=== PATIENT | female | born 2005 | race Caucasian/White ===

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

== ENCOUNTER 2023-01-29 22:06 | Emergency (ER) | payer OTHER ==
[2023-01-29 22:39] LABS: Absolute Lymphocytes (CBC) 2.3 K/uL (0.7-4.9); Hematocrit 39.7 % (36.0-45.0); Lymphocytes % 26.1 % (15.3-44.8); MCV 81.9 fL (80-100); MPV 7.2 fL (7.6-11.3); RBC Red Blood Cell Count 4.85 M/uL (3.86-4.86)
--- OUTSIDE RECORDS SUMMARY | 2023-01-29 22:44 | XMS REPORT | Continuity of Care Document ---
:2005 Author Organization [facility] t Address [address] [place] [address] Care Team Providers Name Role Phone LATOYA MOJICA Primary Care Physician Unavailable Guerrero Whitaker MD Attending Clinician Doctor Unassigned, [place] Attending Clinician Unavailable Arlene Valentino Attending Clinician Unavailable Heaven Morrow Attending Clinician [phone] Yenni Cervantes Attending Clinician Unavailable Hannah Sanchez Attending Clinician Unavailable Yina Green Attending Clinician Unavailable Adali Mcpherson Attending Clinician [phone] Responsible Provider, Not Yet Assigned Attending Clinician U Yenni Lyon Attending Clinician Unavailable Director Graphics, [facility] Attending Clinician UnavailShayy Mccollum Attending Clinician Unavailable Colette Chowdary Attending Clinician [phone] Tram Landaverde Attending Clinician Unavailable Polina Dobson Attending Clinician Unavailable JANNA BONILLA Attending Clinician Unavailable Janna Bonilla PA-C Attending Clinician GUILLERMINA GILL Attending Clinician Unavailable 1, [facility] Attending Clinician Unavailable GUERRERO WHITAKER Attending Clinician Unavailable Heaven Morrow Unavailable [phone] ThousandsticksElke ninoine Unavailable [phone] Germán ManningElsieie Unavailable [phone] Yenni Cervantes Unavailable Unavailable Payers Payer Name Policy Type Policy Number Effective Date Expiration Date S ource Problems Condition Condition Condition Status Onset Resolution Last Treating Co mments Source Name Details Category Date Date Treatment Clinician Date Greater Condition Active 2019-10-15 Jakub Morrow Than or 10-14 09:09:50 [facility] Equal to 00:00: ty 95th 00 Health Percentile For Age Anemia in Condition Active 2019-10-11 Tiera Mcphersonacy , 10-11 11:20:23 Adali Kumar ommuni third 00:00: ty trimester 00 Health Supervisio Condition Active 2019-10-07 Germán Manning [facility] of other 10-07 17:42:03 Colette Comm uni high risk 00:00: ty pregnancie 00 Health s, third trimester Supervisio Condition Active 2019-10-07 Germán Manning, [facility] n of high 10-07 17:42:03 Colette Commu ni risk 00:00: ty 00 Health due to social problems, third trimester Round Round Disease Active Univers ligament ligament 1-31 ity of pain pain 00:00: [place] 00 [facility] 32 weeks 32 weeks Disease Active 2018-08 Unive rs gestation gestation 2-31 ity of of of 00:00: [place] 00 [facility] 28 weeks 28 weeks Disease Active 2018-08 Unive rs gestation gestation 2-31 ity of of of 00:00: [place] 00 [facility] Supervisio Supervisio Disease Active 2018-08 U nivers n of high n of high 2- ity of risk risk 00:00: [place] 00 Medi kacey in third in third Branch trimester trimester Uterine Uterine Disease Active 2018-08 Univers size-date size-date [place] third 00 Me dical trimester trimester Bran ch Need for Need for Disease Active 2018-08 Unive rs Tdap Tdap 2-31 [place] [facility] History of Past Illness Condition Condition Condition Status Onset Resolution Last Treating Co mments Source Name Details Category Date Date Treatment Clinician Date 36 Weeks Condition Inactiv 2019-10-21 2019-10-15 Helen, [facility] Gestation e 10-14 00:00:00 09:09:50 Yenni Com clint of 00:00: ty 00 Health 35 Weeks Condition Inactiv 2019-10-14 2019-10-07 Germán Manning, [facility] Gestation e 10-07 00:00:00 17:42:03 Colette Com clint of 00:00: ty 00 Health Allergies, Adverse Reactions, Alerts Allergy Allergy Status Severity Reaction(s) Onset Inactive Treating Comm ents Source Name Type Date Date Clinician Penicill Propensi Active ins - ty to 7-19 CLASS adverse 00:00: reaction 00 to drug Penicill Propensi Active ins ty to 3-21 adverse 00:00: reaction 00 to drug ASPIRIN DRUG Active ITCHING Univers INGREDI 7 ity of 00:00: [place] 00 [facility] Branch Aspirin Propensi Active Swelling Unive rs ty to 7 ity of adverse 00:00: [place] reaction 00 Medical s Branch Social History Social Habit Start Date Stop Date Quantity Comments Source ASSERTION 2019-02-12 University 00:00:00 [facility] Sex Assigned At [facility] [place] [facility] History [facility] o f Alcohol Std [place] [facility] Drinks Branch History [facility] o f Alcohol Binge [place] [facility] Have you traveled 2019-10-14 2019-10-14 No [facility] to any zika virus 13:44:33 13:44:33 Health infected areas? social history 2019-10-07 2019-10-07 not currently with [facility] E&M 14:07:37 14:07:37 familyliving with Latasha bass's familystates her own parents not involved with this . cat exposure 2019-10-07 2019-10-07 no [facility] nity during 14:07:37 14:07:37 Health Alcohol intake 2019-09-17 2019-09-17 [facility] 00:00:00 00:00:00 [facility] History SDOH 2019-03-17 2019-03-17 1 University o f Alcohol Frequency 00:00:00 00:00:00 [facility] History of 2019-03-07 Chews Tobacco University of tobacco use 00:00:00 [facility] Smoking Status Start Date Stop Date Source Never smoker [facility] Medications Ordered Filled Start Stop Current Ordering Indication Dosage Frequency Signature Comments Components Source Medication Medication Date Date Medication? Clinician (SIG) Name Name Dose 2022-0 No Unknown 05-05 00:00: 00 TAKE 1 2022-0 No TABLET BY 9-18 MOUTH EVERY 00:00: DAY 00 Dose 2022-0 No Unknown 05-05 00:00: 00 TAKE 1 2022-0 No TABLET BY 9-18 MOUTH EVERY 00:00: DAY 00 TAKE 1 2022-0 No 10 TABLET BY 8-18 MOUTH EVERY 00:00: DAY 00 TAKE 1 2022-0 No 10 TABLET BY 8-18 MOUTH EVERY 00:00: DAY 00 TAKE 1 2022-0 No 10 TABLET BY 8-18 MOUTH EVERY 00:00: DAY 00 Dose 2022-0 No 375 Unknown 03-29 00:00: 00 Dose 2022-0 No 375 Unknown 03-29 00:00: 00 Dose 2022-0 No 375 Unknown 03-29 00:00: 00 Dose 2022-0 No 375 Unknown 03-29 00:00: 00 TAKE 1 2022-0 No 25 CAPSULE BY 8-10 MOUTH 3 00:00: TIMES A DAY 00 NEEDED TAKE 1 2022-0 No 25 CAPSULE BY 8-10 MOUTH 3 00:00: TIMES A DAY 00 NEEDED TAKE 1 2022-0 No 25 CAPSULE BY 8-10 MOUTH 3 00:00: TIMES A DAY 00 NEEDED TAKE 1 2022-0 No 25 CAPSULE BY 8-10 MOUTH 3 00:00: TIMES A DAY 00 NEEDED Dose 2022-0 No 500 Unknown 03-25 00:00: [...] 00 TAKE 1 2022-0 No 10 TABLET 03-23 DAILY. 00:00: 00 Dose 2022-0 No 375 Unknown 03-23 00:00: 00 TAKE 1 2022-0 No TABLET BY 8- MOUTH EVERY 00:00: 6 HOURS 00 NEEDED FOR PAIN TAKE 1 2022-0 No 10 TABLET 03-23 DAILY. 00:00: 00 Dose 2022-0 No 375 Unknown 03-23 00:00: 00 TAKE 1 2022-0 No TABLET BY - MOUTH EVERY 00:00: 6 HOURS 00 NEEDED FOR PAIN TAKE 1 2022-0 No 10 TABLET 03-23 DAILY. 00:00: 00 Dose 2022-0 No 375 Unknown 03-23 00:00: 00 TAKE 1 2022-0 No TABLET BY 03-23 MOUTH EVERY 00:00: 6 HOURS 00 NEEDED FOR PAIN TAKE 1 2022-0 No 10 TABLET 03-23 DAILY. 00:00: 00 Dose 2022-0 No 375 Unknown 03-23 00:00: 00 TAKE 1 2022-0 No TABLET BY 03-23 MOUTH EVERY 00:00: 6 HOURS 00 NEEDED FOR PAIN TAKE 1 2022-0 No 10 TABLET 03-23 DAILY. 00:00: 00 Dose 2022-0 No 375 Unknown 03-23 00:00: 00 TAKE 1 2022-0 No TABLET BY 03-23 MOUTH EVERY 00:00: 6 HOURS 00 NEEDED FOR PAIN Dose 2022-0 No 375 Unknown 03-22 00:00: 00 TAKE 1 2022-0 No 25 CAPSULE BY 03-22 MOUTH 3 00:00: TIMES A DAY 00 NEEDED Dose 2022-0 No 375 Unknown 03-22 00:00: 00 TAKE 1 2022-0 No 25 CAPSULE BY 03-22 MOUTH 3 00:00: TIMES A DAY 00 NEEDED Dose 2022-0 No 375 Unknown 03-22 00:00: 00 TAKE 1 2022-0 No 25 CAPSULE BY - MOUTH 3 00:00: TIMES A DAY 00 NEEDED Dose 2022-0 No 375 Unknown 03-22 00:00: 00 TAKE 1 2022-0 No 25 CAPSULE BY 03-22 MOUTH 3 00:00: TIMES A DAY 00 NEEDED Dose 2022-0 No 375 Unknown 03-22 00:00: 00 TAKE 1 2022-0 No 25 CAPSULE BY 8-05 MOUTH 3 00:00: TIMES A DAY 00 NEEDED Dose 2022-0 No Unknown 8- 00:00: 00 TAKE 1 2022-0 No TABLET BY 8-04 MOUTH EVERY 00:00: 6 HOURS 00 NEEDED FOR PAIN &lt 2022-0 No 500 8- 00:00: 00 &lt 2022-0 No 68 8- 00:00: 00 Dose 2022-0 No Unknown 8- 00:00: 00 Dose 2022-0 No Unknown 8- 00:00: 00 TAKE 1 2022-0 No TABLET BY 8-04 MOUTH EVERY 00:00: 6 HOURS 00 NEEDED FOR PAIN &lt 2022-0 No 500 8- 00:00: 00 &lt 2022-0 No 68 8-04 00:00: 00 Dose 2022-0 No Unknown 8- 00:00: 00 Dose 2022-0 No Unknown 8- 00:00: 00 TAKE 1 2022-0 No TABLET BY 8-04 MOUTH EVERY 00:00: 6 HOURS 00 NEEDED FOR PAIN &lt 2022-0 No 500 8-04 00:00: 00 &lt 2022-0 No 68 8-04 00:00: 00 Dose 2022-0 No Unknown 8- 00:00: 00 Dose 2022-0 No Unknown 8- 00:00: 00 TAKE 1 2022-0 No TABLET BY 8-04 MOUTH EVERY 00:00: 6 HOURS 00 NEEDED FOR PAIN &lt 2022-0 No 500 8-04 00:00: 00 &lt 2022-0 No 68 8- 00:00: 00 Dose 2022-0 No Unknown 8- 00:00: 00 Dose 2022-0 No Unknown 8- 00:00: 00 TAKE 1 2022-0 No TABLET BY 8-04 MOUTH EVERY 00:00: 6 HOURS 00 NEEDED FOR PAIN &lt 2022-0 No 500 8-04 00:00: 00 &lt 2022-0 No 68 8-04 00:00: 00 Dose 2022-0 No Unknown 8- 00:00: 00 TAKE 1 2022-0 No 300 CAPSULE BY 8-03 MOUTH EVERY 00:00: 6 HOURS FOR 00 10 DAYS &lt 2022-0 No 500 8-03 00:00: 00 TAKE 1 2022-0 No TABLET BY 8 MOUTH EVERY 00:00: 6 HOURS 00 NEEDED FOR PAIN &lt 2022-0 No 100 03-20 00:00: 00 Dose 2022-0 No 375 Unknown 03-20 00:00: 00 Dose 2022-0 No 300 Unknown 03-20 00:00: 00 Dose 2022-0 No 375 Unknown 03-20 00:00: 00 TAKE 1 2022-0 No 300 CAPSULE BY 8- MOUTH EVERY [...] 00 TAKE 1 2-0 No TABLET BY 803 MOUTH EVERY 00:00: 6 HOURS 00 NEEDED FOR PAIN &lt 2022-0 No 100 03-20 00:00: 00 Dose 2022-0 No 375 Unknown 03-20 00:00: 00 Dose 2022-0 No 300 Unknown 03-20 00:00: 00 Dose 2022-0 No 375 Unknown 03-20 00:00: 00 TAKE 1 2-0 No 300 CAPSULE BY 8-03 MOUTH EVERY 00:00: 6 HOURS FOR 10 DAYS &lt 2022-0 No 500 03-20 00:00: 00 TAKE 1 2022-0 No TABLET BY 8- MOUTH EVERY 00:00: 6 HOURS 00 NEEDED FOR PAIN &lt 2022-0 No 100 03-20 00:00: 00 Dose 2022-0 No 375 Unknown 03-20 00:00: 00 Dose 2022-0 No 300 Unknown 03-20 00:00: 00 Dose 2022-0 No 375 Unknown 03-20 00:00: 00 TAKE 1 2022-0 No 300 CAPSULE BY 8- MOUTH EVERY 00:00: 6 HOURS FOR 10 DAYS &lt 2022-0 No 500 03-20 00:00: 00 TAKE 1 2022-0 No TABLET BY 03-20 MOUTH EVERY 00:00: 6 HOURS 00 NEEDED FOR PAIN &lt 2022-0 No 100 03-20 00:00: 00 Dose 2022-0 No 375 Unknown 03-20 00:00: 00 Dose 2022-0 No 300 Unknown 03-20 00:00: 00 Dose 2022-0 No 375 Unknown 03-20 00:00: 00 TAKE 1 2022-0 No 300 CAPSULE BY 7-25 MOUTH EVERY 00:00: 6 HOURS FOR 10 DAYS &lt 2022-0 No 500 7- 00:00: 00 TAKE 1 2022-0 No 300 CAPSULE BY 7-25 MOUTH EVERY 00:00: 6 HOURS FOR 10 DAYS &lt 2022-0 No 500 7- 00:00: 00 TAKE 1 2022-0 No 300 CAPSULE BY 7-25 MOUTH EVERY 00:00: 6 HOURS FOR 10 DAYS &lt 2022-0 No 500 7-25 00:00: 00 TAKE 1 2022-0 No 300 CAPSULE BY 7-25 MOUTH EVERY 00:00: 6 HOURS FOR 10 DAYS &lt 2022-0 No 500 7-25 00:00: 00 TAKE 1 2022-0 No 300 CAPSULE BY 7-25 MOUTH EVERY 00:00: 6 HOURS FOR 10 DAYS &lt 2022-0 No 500 7- 00:00: 00 TAKE 1 2022-0 No 300 CAPSULE BY 7-25 MOUTH EVERY 00:00: 6 HOURS FOR 10 DAYS &lt 2022-0 No 500 7-25 00:00: 00 TAKE 1 2022-0 No TABLET BY 7-21 MOUTH EVERY 00:00: 6 HOURS 00 NEEDED FOR PAIN TAKE 1 2-0 No TABLET BY 7-21 MOUTH EVERY 00:00: 6 HOURS 00 NEEDED FOR PAIN TAKE 1 2-0 No TABLET BY 7-21 MOUTH EVERY 00:00: 6 HOURS 00 NEEDED FOR PAIN TAKE 1 2-0 No TABLET BY 7-21 MOUTH EVERY 00:00: 6 HOURS 00 NEEDED FOR PAIN TAKE 1 2-0 No TABLET BY 7-21 MOUTH EVERY 00:00: 6 HOURS 00 NEEDED FOR PAIN TAKE 1 2-0 No TABLET BY 7-21 MOUTH EVERY 00:00: 6 HOURS 00 NEEDED FOR PAIN citalopram 2-0 No 1mg 10 mg 7-20 tablet 00:00: [...] 7-15 MOUTH EVERY 00:00: 6 HOURS FOR 10 DAYS &lt 2022-0 No 100 7-12 00:00: 00 &lt 2022-0 No 100 7-12 00:00: 00 &lt 2022-0 No 100 7-12 00:00: 00 &lt 2022-0 No 100 7-12 00:00: 00 &lt 2022-0 No 100 7-12 00:00: 00 &lt 2022-0 No 100 7-12 00:00: 00 &lt 2022-0 No 100 7-12 00:00: 00 TAKE 1 2022-0 No 25 [...] 375 Unknown 7-11 00:00: 00 TAKE 1 2021-0 No 25 CAPSULE BY 7-11 MOUTH 3 00:00: TIMES A DAY 00 NEEDED &lt 2022-0 No 500 7-11 00:00: 00 Dose 2022-0 No 375 Unknown 7 00:00: 00 TAKE 1 2021-0 No 25 CAPSULE BY 7-11 MOUTH 3 00:00: TIMES A DAY 00 NEEDED &lt 2022-0 No 500 7-11 00:00: 00 Dose 2022-0 No 375 Unknown 7 00:00: 00 TAKE 1 2021-0 No 25 CAPSULE BY 7-11 MOUTH 3 00:00: TIMES A DAY 00 NEEDED &lt 2022-0 No 500 7-11 00:00: 00 Dose 2021-0 No 375 Unknown 7 00:00: 00 TAKE 1 2021-0 No 25 CAPSULE BY 7-11 MOUTH 3 00:00: TIMES A DAY 00 NEEDED &lt 2022-0 No 500 7- 00:00: 00 Dose 2-0 No 375 Unknown 7 00:00: 00 TAKE 1 2021-0 No 25 CAPSULE BY 7-11 MOUTH 3 00:00: TIMES A DAY 00 NEEDED &lt 2022-0 No 500 7-11 00:00: 00 Dose 2-0 No 375 Unknown 02-25 00:00: 00 TAKE 1 2021-0 No 25 [...] PAIN &lt 2022-0 No 6-07 00:00: 00 &lt [...] 6-07 MOUTH EVERY 00:00: 6 HOURS FOR 10 Dose 2022-0 No Unknown 6-07 00:00: 00 Dose 2022-0 No Unknown 6-07 00:00: 00 &lt 2022-0 No 6-07 00:00: 00 TAKE 1 2022-0 No CAPSULE BY 6-07 MOUTH 3 00:00: TIMES A DAY 00 NEEDED &lt 2022-0 No 6-07 00:00: 00 &lt 2022-0 No 6-07 00:00: 00 TAKE 1 2022-0 No CAPSULE BY 6-07 MOUTH EVERY 00:00: 6 HOURS FOR 10 Dose 2022-0 No Unknown 6-07 00:00: 00 Dose 2022-0 No Unknown 6- 00:00: 00 &lt 2022-0 No 6-07 00:00: 00 TAKE 1 2022-0 No CAPSULE BY 6-07 MOUTH 3 00:00: TIMES A DAY 00 NEEDED &lt 2022-0 No 6-07 00:00: 00 &lt 2022-0 No 6-07 00:00: 00 TAKE 1 2022-0 No CAPSULE BY 6-07 MOUTH EVERY 00:00: 6 HOURS FOR 10 Dose 2022-0 No Unknown 6-07 00:00: 00 Dose 2022-0 No Unknown 6-07 00:00: 00 &lt 2022-0 No 6-07 00:00: 00 TAKE 1 2022-0 No CAPSULE BY 6-07 MOUTH 3 00:00: TIMES A DAY 00 NEEDED &lt 2022-0 No 6-07 00:00: 00 &lt 2022-0 No 6-07 00:00: 00 TAKE 1 2022-0 No CAPSULE BY 6-07 MOUTH EVERY 00:00: 6 HOURS FOR 00 10 Dose 2022-0 No Unknown 6-07 00:00: 00 [...] A DAY 00 NEEDED &lt 2022-0 No 6-04 00:00: 00 &lt [...] 1-22 100 mg 00:00: capsule 00 medroxyprog 2021-0 No 1mg/mL esterone 7-27 150 mg/mL 00:00: intramuscul 00 ar syringe medroxyprog 2021-0 No 1mg/mL esterone 7-27 150 mg/mL 00:00: intramuscul 00 ar syringe medroxyprog 2021-0 No 1mg/mL esterone 7-27 150 mg/mL 00:00: intramuscul 00 ar syringe medroxyprog 2021-0 No 1mg/mL esterone 7-27 150 mg/mL 00:00: intramuscul 00 ar syringe medroxyprog 2021-0 No 1mg/mL esterone 7-27 150 mg/mL 00:00: intramuscul 00 ar syringe medroxyprog 2021-0 No 1mg/mL esterone 7-27 150 mg/mL 00:00: intramuscul 00 ar syringe medroxyprog 2021-0 No 1mg/mL esterone 7-27 150 mg/mL 00:00: intramuscul 00 ar syringe medroxyprog 1-0 No 1mg/mL esterone 7-27 150 mg/mL 00:00: intramuscul 00 ar syringe Wellbutrin 2019-1 No 1mg XL 150 mg 1-28 24 hr 00:00: tablet, 00 extended release Wellbutrin 2019- No 1mg XL 150 mg 1-28 24 hr 00:00: tablet, 00 extended release Wellbutrin 2019- No 1mg XL 300 mg 1-28 24 hr 00:00: tablet, 00 extended release olanzapine 2019- No 1mg 5 mg tablet - 00:00: 00 clonidine 2019- No 1mg HCl 0.3 mg 1-28 tablet 00:00: 00 clonidine 2019-1 No 1mg HCl 0.3 mg 1-28 tablet 00:00: 00 gabapentin 2019-1 No 1mg 300 mg -28 capsule 00:00: 00 Wellbutrin 2019- No 1mg XL 300 mg -28 24 hr 00:00: tablet, 00 [...] olanzapine 2019- No 1mg 5 mg tablet -28 00:00: 00 clonidine 2019-1 No 1mg HCl 0.3 mg 1-28 tablet 00:00: 00 clonidine 2019- No 1mg HCl 0.3 mg 1-28 tablet 00:00: 00 gabapentin 2019- No 1mg 300 mg 1-28 capsule 00:00: [...] hr 00:00: tablet, 00 extended release olanzapine 2019-08 No 1mg 5 mg tablet - 00:00: 00 clonidine 2019- No 1mg HCl 0.3 mg 1-28 tablet 00:00: 00 clonidine 2019- No 1mg HCl 0.3 mg 1-28 tablet 00:00: 00 gabapentin 2019- No 1mg 300 mg 1-28 capsule 00:00: 00 fluoxetine 2019- No mg 20 mg 0-07 tablet 00:00: 00 fluoxetine 2019- No mg 20 mg 0-07 tablet 00:00: 00 fluoxetine 2019- No mg 20 mg 0-07 tablet 00:00: 00 fluoxetine 2019- No mg 20 mg 0-07 tablet 00:00: 00 fluoxetine 2019- No mg 20 mg 0-07 tablet 00:00: 00 fluoxetine 2019- No mg 20 mg 0-07 tablet 00:00: 00 fluoxetine 2019- No mg 20 mg 0-07 tablet 00:00: 00 fluoxetine 2019- No mg 20 mg 0-07 tablet 00:00: 00 FERRALET 90 Yes Adali Take 1 [facility] (FE CBN-FE 2-24 [facility] Tablet Communi GLUC-FA-B12 00:00: Once a Day ty -C-DSS) 00 Health 90-1 MG TABS VITAFOL Yes Colette Dunlap 1{Capsu 1xD take 1 [facility] ULTRA 2-20 Nigel le} capsule by Evon (PRENAT-FE 00:00: mouth ty POLY-METHFO 00 daily Health L-FA-DHA) 29-0.6-0.4- 200 MG CAPS BLOOD Yes Colette Dunlap take twice [facility] PRESSURE 2-20 Nigel daily Evon (BLOOD 00:00: ty PRESSURE 00 Health MONITORING) KIT PNV 67-iron Yes [id number] Take 1 Univers ps-folate 8-03 TAB-CAP/M2 ity of no.1-dha 00:00: by mouth [place] (VITAFOL 00 daily. Medical ULTRA) 29 Branch mg iron- 1 mg-200 mg Cap PNV 67-iron Yes [id number] Take 1 Univers ps-folate 8-03 TAB-CAP/M2 ity of no.1-dha 00:00: by mouth [place] (VITAFOL 00 daily. Medical ULTRA) 29 Branch mg iron- 1 mg-200 mg Cap PNV 67-iron 2019-0 Yes [id number] Take 1 Univers ps-folate 8-03 TAB-CAP/M2 ity of no.1-dha 00:00: by mouth [place] (VITAFOL 00 daily. Medical ULTRA) 29 Branch mg iron- 1 mg-200 mg Cap PNV 67-iron 2019-0 Yes [id number] Take 1 Univers ps-folate 8-03 TAB-CAP/M2 ity of no.1-dha 00:00: by mouth [place] (VITAFOL 00 daily. Medical ULTRA) 29 Branch mg iron- 1 mg-200 mg Cap PNV 67-iron 2019-0 Yes [id number] Take 1 Univers ps-folate 8-03 TAB-CAP/M2 ity of no.1-dha 00:00: by mouth [place] (VITAFOL 00 daily. Medical ULTRA) 29 Branch mg iron- 1 mg-200 mg Cap PNV 67-iron 2019-0 Yes [id number] Take 1 Univers ps-folate 8-03 TAB-CAP/M2 ity of no.1-dha 00:00: by mouth [place] (VITAFOL 00 daily. Medical ULTRA) 29 Branch mg iron- 1 mg-200 mg Cap PNV 67-iron 2019-0 Yes [id number] Take 1 Univers ps-folate 8-03 TAB-CAP/M2 ity of no.1-dha 00:00: by mouth [place] (VITAFOL 00 daily. Medical ULTRA) 29 Branch mg iron- 1 mg-200 mg Cap PNV 67-iron 2019-0 Yes [id number] Take 1 Univers ps-folate 8-03 TAB-CAP/M2 ity of no.1-dha 00:00: by mouth [place] (VITAFOL 00 daily. Medical ULTRA) 29 Branch mg iron- 1 mg-200 mg Cap PNV 67-iron 2019-0 Yes [id number] Take 1 Univers ps-folate 8-03 TAB-CAP/M2 ity of no.1-dha 00:00: by mouth [place] (VITAFOL 00 daily. Medical ULTRA) 29 Branch mg iron- 1 mg-200 mg Cap PNV 67-iron 2019-0 Yes [id number] Take 1 Univers ps-folate 8-03 TAB-CAP/M2 ity of no.1-dha 00:00: by mouth [place] (VITAFOL 00 daily. Medical ULTRA) 29 Branch mg iron- 1 mg-200 mg Cap PNV 67-iron 2019-0 Yes [id number] Take 1 Univers ps-folate 8-03 TAB-CAP/M2 ity of no.1-dha 00:00: by mouth [place] (VITAFOL 00 daily. Medical ULTRA) 29 Branch mg iron- 1 mg-200 mg Cap PNV 67-iron 2019-0 Yes [id number] Take 1 Univers ps-folate 8-03 TAB-CAP/M2 ity of no.1-dha 00:00: by mouth [place] (VITAFOL 00 daily. Medical ULTRA) 29 Branch mg iron- 1 mg-200 mg Cap PNV 67-iron 2019-0 Yes [id number] Take 1 Univers ps-folate 8-03 TAB-CAP/M2 ity of no.1-dha 00:00: by mouth [place] (VITAFOL 00 daily. Medical ULTRA) 29 Branch mg iron- 1 mg-200 mg Cap PNV 67-iron 2018-0 Yes [id number] Take 1 Univers ps-folate 8-03 TAB-CAP/M2 ity of no.1-dha 00:00: by mouth [place] (VITAFOL 00 daily. Medical ULTRA) 29 Branch mg iron- 1 mg-200 mg Cap PNV 67-iron 2018-0 Yes [id number] Take 1 Univers ps-folate 8-03 TAB-CAP/M2 ity [...] cetirizine 2019-0 No 1mg 5 mg tablet 507 00:00: 00 cetirizine 2019-0 No 1mg 5 mg tablet 507 00:00: 00 prednisone 2019-0 No 1mg 10 [...] cetirizine 2019-0 No 1mg 5 mg tablet 507 00:00: 00 prednisone 2019-0 No 1mg 10 mg 5-07 tablet 00:00: 00 azithromyci 2019-0 No mg n 250 mg 5-07 tablet 00:00: 00 promethazin 2019-0 No 5mg/5 e-DM 6.25 5-07 mL mg-15 mg/5 00:00: mL oral 00 syrup promethazin 2019-0 No 5mg/5 e-DM 6.25 5-07 mL mg-15 mg/5 00:00: mL oral 00 syrup cetirizine 2019-0 No 1mg 5 mg tablet 5-07 00:00: 00 prednisone 2018-0 No 1mg 10 mg 5-07 tablet 00:00: 00 azithromyci 2018-0 No mg n 250 mg 5-07 tablet 00:00: 00 promethazin 2018-0 No 5mg/5 e-DM 6.25 5-07 [...] 0.18 00 mg/0.215mg/ 0.25mg-35 mcg(28)tabl et norgestimat 2018-0 No 1mg-35 e-ethinyl 1-24 mcg estradiol 00:00: (28) 0.18 00 mg/0.215mg/ 0.25mg-35 mcg(28)tabl et No known No Univers medications ity of [facility] No known No Univers medications it of [facility] Immunizations Ordered Immunization Filled Immunization Date Status Commen ts Source Name Name TDAP (ADACEL) 2019-08-17 Completed University of VACCINE 00:00:00 [facility] TDAP (ADACEL) 2019-08-17 Completed University of VACCINE 00:00:00 [facility] TDAP (ADACEL) 2019-08-17 Completed University of VACCINE 00:00:00 [facility] TDAP (ADACEL) 2019-08-17 Completed University of VACCINE 00:00:00 [facility] Influenza Virus 2019-06-14 Completed Universit y of Vaccine Quad .5 mL 00:00:00 [facility] 6+ MO [place] Influenza Virus 2019-06-14 Completed Universit y of Vaccine Quad .5 mL 00:00:00 [facility] 6+ MO [place] Influenza Virus 2019-06-14 Completed Universit y of Vaccine Quad .5 mL 00:00:00 [facility] 6+ [place] Branch Influenza Virus 2019-06-14 Completed Universit y of Vaccine Quad .5 mL 00:00:00 [facility] 6+ [place] [facility] HPV9 2018-12-11 [...] 2008-01-04 Completed 00:00:00 varicella 2008-01-04 Completed 00:00:00 MMR 2008-01-04 Completed 00:00:00 IPV 2008-01-04 Completed 00:00:00 varicella 2008-01-04 Completed 00:00:00 DTaP 2008-01-04 Completed 00:00:00 MMR 2008-01-04 Completed 00:00:00 IPV 2008-01-04 Completed 00:00:00 varicella 2008-01-04 Completed 00:00:00 varicella 2007-03-12 Completed 00:00:00 varicella 2007-03-12 Completed 00:00:00 varicella 2007-03-12 Completed 00:00: varicella 2007-03-12 Completed 00:00: varicella 2007-03-12 Completed 00:00:00 varicella 2007-03-12 Completed [...] 00:00:00 Pneumococcal 2003 Completed conjugate P 00:00:00 Hep B, adolescent or 2003 Completed [...] 23:06:00 93 mm[Hg] Univer sity of pressure [facility] Diastolic blood 2019-08-31 23:06:00 64 mm[Hg] Unive rsity of pressure [facility] Heart rate 2019-08-31 23:06:00 90 /min [facility] Body temperature 2019-08-31 23:06:00 36.39 Vicky [facility] [place] [facility] Respiratory rate 2019-08-31 23:06:00 18 /min [facility] [place] [facility] Body height 2019-08-31 23:06:00 160 cm [facility] [place] [facility] Body weight 2019-08-31 23:06:00 101.606 kg [facility] [place] [facility] BMI 2019-08-31 23:06:00 39.68 kg/m2 [facility] [place] [facility] Systolic blood 2019-04-14 19:00:00 117 mm[Hg] Univer sity of pressure [place] [facility] Diastolic blood 2019-04-14 19:00:00 70 mm[Hg] Unive rsity of pressure [place] [facility] Heart rate 2019-04-14 19:00:00 79 /min [facility] [place] [facility] Body temperature 2019-04-14 19:00:00 36.89 Vicky [facility] [place] [facility] Respiratory rate 2019-04-14 19:00:00 18 /min [facility] [place] [facility] Body height 2019-04-14 19:00:00 160 cm [facility] [place] [facility] Body weight 2019-04-14 19:00:00 87.544 kg [facility] [place] [facility] BMI 2019-04-14 19:00:00 34.19 kg/m2 [facility] [place] [facility] Systolic blood 2019-03-17 14:24:00 112 mm[Hg] Univer sity of pressure [place] [facility] Diastolic blood 2019-03-17 14:24:00 70 mm[Hg] Unive rsity of pressure [facility] Heart rate 2019-03-17 14:24:00 77 /min [facility] [place] [facility] Body temperature 2019-03-17 14:24:00 36.83 Vicky [facility] Respiratory rate 2019-03-17 14:24:00 18 /min [facility] Body height 2019-03-17 14:24:00 160 cm [facility] Body weight 2019-03-17 14:24:00 90.266 kg [facility] BMI 2019-03-17 14:24:00 35.25 kg/m2 [facility] BP Systolic 2022-05-07 17:13:00 117 mm[Hg] BP Diastolic 2022-05-07 17:13:00 85 mm[Hg] Weight Measured 2022-05-07 17:13:00 241.00 pounds Height Measured 2022-05-07 17:13:00 62.01 inches Body Temperature 2022-05-07 17:13:00 98.00 degrees Heart Rate 2022-05-07 17:13:00 75.00 /min Respiratory Rate 2022-05-07 17:13:00 18.00 /min BP Systolic 2022-04-04 13:18:00 112 mm[Hg] BP [...] /min Respiratory Rate 2021-03-13 13:32:00 16.00 /min blood pressure, 2019-10-14 13:44:33 84 mm[Hg] [facility] diastolic Health blood pressure, 2019-10-14 13:44:33 125 mm[Hg] [facility] systolic Health pulse rate E&M 2019-10-14 13:44:33 87 /min [facility] oxygen saturation, 2019-10-14 13:44:33 97 % [facility] rate E&M 2019-10-14 13:44:33 20 /min [facility] temperature site 2019-10-14 13:44:33 oral Lega [facility] Health temperature E&M 2019-10-14 13:44:33 98.3 [degF] Legac [facility] Health weight E&M 2019-10-14 13:44:33 238.8 [lb_av] [facility] height E&M 2019-10-14 13:44:33 63 [in_i] [facility], 2019-10-07 14:07:37 98 % [facility] Health blood pressure, 2019-10-07 14:07:37 83 mm[Hg] Legac y [facility] diastolic Health blood pressure, 2019-10-07 14:07:37 130 mm[Hg] Legac y [facility] systolic Health pulse rate E&M 2019-10-07 14:07:37 91 /min [facility] temperature E&M 2019-10-07 14:07:37 98.6 [degF] Legac y [facility] Health temperature site 2019-10-07 14:07:37 oral [facility] height E&M 2019-10-07 14:07:37 63 [in_i] [facility] weight E&M 2019-10-07 14:07:37 235 [lb_av] [facility] Procedures Procedure Date / Time Performing Clinician Source Performed CONSENT/REFUSAL FOR 2019-10-25 05:01:00 Doctor Unassigned, No [facility] DIAGNOSIS AND TREATMENT Name Medical Branch Nutrition Counseling 2019-10-14 14:28:44 [facility] Visit, 2019-10-07 15:54:24 Yenni Gross Comm unity Non-Billable [id number] Health Vaccines Ordered - 2019-10-07 15:46:26 Colette Chowdary [facility] Consent/Declination Forms POCT URINALYSIS W/O 2019-08-31 00:00:00 Janna Bonilla [facility] SPECIFIC GRAVITY Medical Branch <14 WEEKS US 2019-04-16 17:44:02 Guerrero Whitaker [facility] CBC WITH DIFFERENTIAL 2019-04-14 21:36:00 Guerrero Whitaker [facility] ASSIGNMENT OF BENEFITS 2019-04-14 20:00:31 Doctor Unassigned, No [facility] <14 WEEKS US 2019-03-20 23:54:07 Guerrero Whitaker [facility] TOTAL BETA HCG ASSAY 2019-03-17 15:19:00 Guerrero Whitaker [facility] GC & CHLAMYDIA 2019-03-17 14:53:00 Bry [facility] AMPLIFIED ASSAY [facility] GALV ONLY - VAGINAL 2019-03-17 14:53:00 Guerrero Whitaker [facility] PATHOGENS BY DNA PROBE Medical B geoff ADC / LCC - DRUG SCREEN 2019-03-17 14:53:00 Guerrero Whitaker [facility] POCT TEST 2019-03-17 00:00:00 Gu[facility]aker [facility] POCT URINALYSIS W/O 2019-03-17 00:00:00 Gurerero Whitaker [facility] Plan of Care Planned Activity Planned Date Details Comments Source Goal Plan of Care Note [code = 06036-1] Goal Plan of Care Note [code = 73037-1] Goal Plan of Care Note [code = 74801-2] Goal Plan of Care Note [code = 73111-5] Goal Plan of Care Note [code = 95388-1] Goal Plan of Care Note [code = 17711-3] Goal Plan of Care Note [code = 43555-2] Goal Plan of Care Note [code = 98525-0] Goal Plan of Care Note [code = 07970-1] Goal Plan of Care Note [code = 68758-1] Goal Plan of Care Note [code = 19126-5] Goal Plan of Care Note [code = 00882-5] Goal Plan of Care Note [code = 65618-7] Goal Plan of Care Note [code = 08318-0] Goal Plan of Care Note [code = 91206-1] Goal Plan of Care Note [code = 62428-9] Goal Plan of Care Note [code = 29162-9] Goal Plan of Care Note [code = 33578-0] Goal Plan of Care Note [code = 43315-8] Goal Plan of Care Note [code = 80865-1] Goal Plan of Care Note [code = 08485-5] Goal Plan of Care Note [code = 32681-2] Goal Plan of Care Note [code = 29853-8] Goal Plan of Care Note [code = 02412-4] Goal Plan of Care Note [code = 19575-9] Goal Plan of Care Note [code = 89260-5] Goal Plan of Care Note [code = 39505-1] Goal Plan of Care Note [code = 17371-3] Goal Plan of Care Note [code = 47700-3] Goal Plan of Care Note [code = 34091-6] Goal Plan of Care Note [code = 19015-2] Goal Plan of Care Note [code = 13590-5] Goal Plan of Care Note [code = 57560-3] Goal Plan of Care Note [code = 35754-5] Goal Plan of Care Note [code = 12855-1] Goal Plan of Care Note [code = 73206-7] Goal Plan of Care Note [code = 86446-8] Goal Plan of Care Note [code = 87232-1] Goal Plan of Care Note [code = 97780-0] Goal Plan of Care Note [code = 48597-2] Goal Plan of Care Note [code = 59389-5] Goal Plan of Care Note [code = 43293-8] Goal Plan of Care Note [code = 85246-2] Goal Plan of Care Note [code = 61384-4] Goal Plan of Care Note [code = 16650-0] Goal Plan of Care Note [code = 44761-9] Goal Plan of Care Note [code = 89669-8] Goal Plan of Care Note [code = 84785-0] Goal Plan of Care Note [code = 52542-7] Goal Plan of Care Note [code = 07321-2] Goal Plan of Care Note [code = 54629-0] Goal Plan of Care Note [code = 85830-8] Goal Plan of Care Note [code = 74919-3] Goal Plan of Care Note [code = 03734-9] Goal Plan of Care Note [code = 90216-9] Goal Plan of Care Note [code = 91808-0] Goal Plan of Care Note [code = 49665-6] Goal Plan of Care Note [code = 40685-5] Goal Plan of Care Note [code = 21376-4] Goal Plan of Care Note [code = 80576-9] Goal Plan of Care Note [code = 57452-8] Goal Plan of Care Note [code = 05451-7] Goal Plan of Care Note [code = 11910-7] Goal Plan of Care Note [code = 01866-0] Goal Plan of Care Note [code = 71544-5] Goal Plan of Care Note [code = 64328-1] Goal Plan of Care Note [code = 63570-2] Goal Plan of Care Note [code = 10460-2] Goal Plan of Care Note [code = 92601-3] Goal Plan of Care Note [code = 48656-1] Goal Plan of Care Note [code = 58790-6] Goal Plan of Care Note [code = 29710-0] Goal Plan of Care Note [code = 87691-5] Goal Plan of Care Note [code = 89562-0] Goal Plan of Care Note [code = 23409-1] Goal Plan of Care Note [code = 16469-6] Goal Plan of Care Note [code = 75955-5] Goal Plan of Care Note [code = 59424-7] Goal Plan of Care Note [code = 07554-4] Goal Plan of Care Note [code = 00846-7] Goal Plan of Care Note [code = 21793-1] Goal Plan of Care Note [code = 90572-1] Goal Plan of Care Note [code = 01570-5] Goal Plan of Care Note [code = 84857-4] Goal Plan of Care Note [code = 39063-3] Goal Plan of Care Note [code = 42201-3] Goal Plan of Care Note [code = 00673-7] Goal Plan of Care Note [code = 10351-1] Goal Plan of Care Note [code = 86915-3] Goal Plan of Care Note [code = 67680-3] Goal Plan of Care Note [code = 59429-6] Goal Plan of Care Note [code = 05620-9] Goal Plan of Care Note [code = 18517-4] Goal Plan of Care Note [code = 56461-1] Goal Plan of Care Note [code = 68237-0] Goal Plan of Care Note [code = 02307-6] Goal Plan of Care Note [code = 02602-2] Goal Plan of Care Note [code = 13896-1] Goal Plan of Care Note [code = 47375-4] Goal Plan of Care Note [code = 99274-9] Goal Plan of Care Note [code = 85909-7] Goal Plan of Care Note [code = 17565-6] Goal Plan of Care Note [code = 90777-0] Goal Plan of Care Note [code = 64869-1] Goal Plan of Care Note [code = 19497-3] Goal Plan of Care Note [code = 14354-4] Goal Plan of Care Note [code = 13143-6] Goal Plan of Care Note [code = 14486-5] Goal Plan of Care Note [code = 17307-3] Goal Plan of Care Note [code = 37080-2] Goal Plan of Care Note [code = 09969-8] Goal Plan of Care Note [code = 98571-6] Goal Plan of Care Note [code = 42856-1] Goal Plan of Care Note [code = 49836-8] Goal Plan of Care Note [code = 59098-7] Goal Plan of Care Note [code = 44637-9] Goal Plan of Care Note [code = 14106-9] Goal Plan of Care Note [code = 28597-3] Goal Plan of Care Note [code = 99233-2] Goal Plan of Care Note [code = 74149-9] Goal Plan of Care Note [code = 52945-8] Goal Plan of Care Note [code = 95474-4] Goal Plan of Care Note [code = 43579-6] Goal Plan of Care Note [code = 41389-2] Goal Plan of Care Note [code = 45471-0] Goal Plan of Care Note [code = 60671-9] Goal Plan of Care Note [code = 56103-0] Goal Plan of Care Note [code = 80861-3] Goal Plan of Care Note [code = 28172-2] Goal Plan of Care Note [code = 79038-3] Goal Plan of Care Note [code = 47323-5] Goal Plan of Care Note [code = 10814-1] Goal Plan of Care Note [code = 23637-8] Goal Plan of Care Note [code = 75423-7] Goal Plan of Care Note [code = 86200-8] Goal Plan of Care Note [code = 93995-7] Goal Plan of Care Note [code = 79868-9] Goal Plan of Care Note [code = 49928-0] Goal Plan of Care Note [code = 78577-4] Goal Plan of Care Note [code = 70849-2] Goal Plan of Care Note [code = 86696-4] Goal Plan of Care Note [code = 51598-2] Goal Plan of Care Note [code = 19213-9] Goal Plan of Care Note [code = 94052-0] Goal Plan of Care Note [code = 90067-3] Goal Plan of Care Note [code = 62633-4] Goal Plan of Care Note [code = 45814-3] Goal Plan of Care Note [code = 06299-1] Goal Plan of Care Note [code = 90037-1] Goal Plan of Care Note [code = 25884-3] Goal Plan of Care Note [code = 63238-7] Goal Plan of Care Note [code = 82908-3] Goal Plan of Care Note [code = 75273-7] Goal Plan of Care Note [code = 74848-8] Goal Plan of Care Note [code = 46011-5] Goal Plan of Care Note [code = 62741-3] Goal Plan of Care Note [code = 89384-3] Goal Plan of Care Note [code = 58311-7] Goal Plan of Care Note [code = 16777-2] Goal Plan of Care Note [code = 84562-6] Goal Plan of Care Note [code = 53864-6] Goal Plan of Care Note [code = 77150-3] Goal Plan of Care Note [code = 81095-6] Goal Plan of Care Note [code = 40962-6] Goal Plan of Care Note [code = 46412-5] Goal Plan of Care Note [code = 32308-5] Goal Plan of Care Note [code = 64309-3] Goal Plan of Care Note [code = 94396-3] Goal Plan of Care Note [code = 85149-4] Goal Plan of Care Note [code = 87021-4] Goal Plan of Care Note [code = 80346-4] Goal Plan of Care Note [code = 01366-2] Goal Plan of Care Note [code = 69887-6] Goal Plan of Care Note [code = 64478-6] Goal Plan of Care Note [code = 20554-7] Goal Plan of Care Note [code = 10724-3] Goal Plan of Care Note [code = 95688-8] Goal Plan of Care Note [code = 62767-7] Goal Plan of Care Note [code = 72418-2] Goal Plan of Care Note [code = 27172-3] Goal Plan of Care Note [code = 17694-6] Goal Plan of Care Note [code = 72481-5] Goal Plan of Care Note [code = 49056-2] Goal Plan of Care Note [code = 58742-5] Goal Plan of Care Note [code = 87195-8] Goal Plan of Care Note [code = 10385-9] Goal Plan of Care Note [code = 10124-8] Goal Plan of Care Note [code = 94128-0] Goal Plan of Care Note [code = 70805-6] Goal Plan of Care Note [code = 35368-8] Goal Plan of Care Note [code = 93309-3] Goal Plan of Care Note [code = 07656-8] Goal Plan of Care Note [code = 44034-9] Goal Plan of Care Note [code = 56912-1] Goal Plan of Care Note [code = 58271-8] Goal Plan of Care Note [code = 27183-7] Goal Plan of Care Note [code = 47406-2] Goal Plan of Care Note [code = 32900-9] Goal Plan of Care Note [code = 85719-3] Goal Plan of Care Note [code = 00795-6] Goal Plan of Care Note [code = 18744-8] Goal Plan of Care Note [code = 42684-2] Goal Plan of Care Note [code = 52223-6] Goal Plan of Care Note [code = 79431-5] Goal Plan of Care Note [code = 43520-6] Goal Plan of Care Note [code = 89700-9] Goal Plan of Care Note [code = 10179-7] Goal Plan of Care Note [code = 01146-0] Goal Plan of Care Note [code = 81110-1] Encounters Start End Encounter Admission Attending Care Care Encounter Source Date/Time Date/Time Type Type Clinicians Facility Department ID 2022-12-31 2022-12-31 Outpatient SFA SFA [id number] 023 Cj 14:01:12 14:01:12 0516 F Orestes 2022-10-17 2022-10-17 Outpatient SFA SFA [id number] 023 Cj 13:22:30 13:22:30 0302 F Orestes 2022-07-04 2022-07-04 Outpatient SFA SFA [id number] 022 Cj 16:27:15 16:27:15 1117 F Orestes 2022-06-25 2022-06-25 Outpatient SFA SFA 68746-1 022 Cj 09:30:43 09:30:43 1108 F Orestes 2022-04-04 2022-04-04 Outpatient 4gq61u4n- [id number] 0f q69z2r-8 00:00:00 00:00:00 Visit 0aw7-2798 cf4-4333-a -c14i-209 14d-616d2c a9ifpe124 vlf872 2022-03-29 2022-03-29 Outpatient 70s8s3lj- [id number] e5v0dr-1 00:00:00 00:00:00 Visit 1m74-533j n52-682f-f -aee4-f53 ee4-f53cf0 sg2b7h5is d1d1ff 2022-03-23 2022-03-23 Outpatient t60giw61- [id number] a1 9gbd79-p 00:00:00 00:00:00 Visit s9e3-5l30 8e3-2s88-b -ya93-43k i88-50sf6n j2n8v712u 9v073w 2022-03-20 2022-03-20 Outpatient 15b8598n- [id number] b4151r-8 00:00:00 00:00:00 Visit 499b-4139 99b-4139-b -m227-p45 979-d90d6a b9u534q90 082f34 2022-03-11 2022-03-11 Outpatient m9taz218- [id number] d7 klx561-3 00:00:00 00:00:00 Visit 7oc3-3uc6 be8-4fb1-9 -9183-471 183-471bfe alz20h82i 09f04a 2022-03-05 2022-03-05 Outpatient t8d70794- [id number] e3 o30652-8 00:00:00 00:00:00 Visit 7883-4b9d 883-4b9d-a -xn9d-40q l1o-43t633 342796st3 953bc3 2022-02-28 2022-02-28 Outpatient 2ui18z11- [id number] 6a j84f91-q 00:00:00 00:00:00 Visit cl29-62t4 m03-74o7-d -o2bn-0nu 3bc-6ra740 [id number] 9383-07-11 2022-02-25 Outpatient tw2904q2- [id number] ed 1674w4-4 00:00:00 00:00:00 Visit 03cc-4c8d 3cc-4c8d-8 -8777-5b3 777-6c5480 20186g0qv 20b2eb 2019-11-17 2019-11-17 Telephone Guerrero Whitaker [facility] 1.2.840.114 [id number] Univers 00:00:00 00:00:00 Cam Eugenio 350.1.13.10 i [place] [phone] Id dical nal 134 [facility] 2019-10-25 2019-10-25 Orders Doctor ZEV 1.2.840.114 [id number] Univers 00:00:00 00:00:00 Only Unassigned, NICK 350.1.13.10 [facility] 4.2.7.2.686 Dylon as [phone] [address] 2019-10-21 2019-10-21 Office HAYDER Valentino Encount er/ Legacy 00:00:00 00:00:00 Visit Arlene Olson [id number] José [place] 259428 [employer] ADMINISTRATOR Health 2019-10-21 2019-10-21 Office HAYDER Valentinoacy Encount er/ Legacy 00:00:00 00:00:00 Visit Arlene Olson [id number] José [place] 985722 W[employer]OWS SERVER ADMINISTRATOR Health 2019-10-19 2019-10-19 Office Arlene Valentinoacy Encounter/ Legacy 00:00:00 00:00:00 Visit Heaven Morrow [place] [phone] [id number] [facility] Denise 287954 WINDOWS SERVER ADMINISTRATOR Health 2019-10-19 2019-10-19 Office HAYDER Valentino Encount er/ Legacy 00:00:00 00:00:00 Visit Arlene Olson [id number] José [place] 689051 WINDOWS SERVER ADMINISTRATOR Health 2019-10-19 2019-10-19 Office HAYDER Valentino Encount er/ Legacy 00:00:00 00:00:00 Visit Arlene Olson [id number] José [place] 357402 WINDOWS SERVER ADMINISTRATOR Health 2019-10-18 2019-10-18 Office HAYDER Valentinoacy Encount er/ Legacy 00:00:00 00:00:00 Visit Arlene [facility] [id number] José hood [place] 368961 ty WINDOWS SERVER ADMINISTRATOR Health 2019-10-15 2019-10-15 Office RAMIRO Valentino Jakub Encount er/ Legacy 00:00:00 00:00:00 Visit Arlene [facility] [id number] José hood [place] 374702 WINDOWS SERVER ADMINISTRATOR Health 2019-10-14 2019-10-14 Office RAMIRO Morrow Legacy Encounter / Legacy 00:00:00 00:00:00 Visit [facility] [id number] [facility] 290798 Services Health 2019-10-14 2019-10-14 Office RAMIRO Morrow Legacy Encounter / Legacy 00:00:00 00:00:00 Visit [facility] [id number] [facility] 880624 [facility] Health 2019-10-14 2019-10-14 Office RAMIRO Morrow Legtessie Encounter / Legacy 00:00:00 00:00:00 Visit Heaven [facility] [id number] sana [place] 690459 WINDOWS SERVER ADMINISTRATOR Health 2019-10-14 2019-10-14 Office RAMIRO Morrow Legtessie Encounter / Legacy 00:00:00 00:00:00 Visit Heaven [facility] [id number] José hood [place] 992156 WINDOWS SERVER ADMINISTRATOR Health 2019-10-14 2019-10-14 Office Heaven Morrow [facility] Legtessie E ncounter/ Legacy 00:00:00 00:00:00 Visit Yenni Cervantes [facility] [id number] 5373 Hannah Avila [place] 50 5780 WINDOWS SERVER ADMINISTRATOR Health 2019-10-14 2019-10-14 Office Peter [facility] Kerry Otto Encoun ter/ Legacy 00:00:00 00:00:00 Visit Yina WINDOWS SERVER ADMINISTRATOR [id number] Com clint [id number] ty Health 2019-10-11 2019-10-11 Office Ky [facility] Kerry Otto Encoun ter/ Legacy 00:00:00 00:00:00 Visit Adali [id number] C ommuni 106263 Health 2019-10-07 2019-10-07 Office Responsible Provider, Not Yet Anamika dietz [facility] Legacy Encounter/ Legacy 00:00:00 00:00:00 Visit Adali Mcpherson [facility] 1897 [id number] [facility] 322172 Services [facility] 2019-10-07 2019-10-07 Office Responsible Provider, Not Yet Asselvis gnryan LC Legacy Encounter/ Legacy 00:00:00 00:00:00 Visit Adali Mcpherson [facility] 1897 062118 [facility] 355504 Services [facility] 2019-10-07 2019-10-07 Office Responsible Provider, Not Yet Assi gned LC Legacy Encounter/ Legacy 00:00:00 00:00:00 Visit Adali Mcpherson [facility] 1897 509283 [facility] 581551 [facility] 2019-10-07 2019-10-07 Office Yenni Gross Legacy Encoun ter/ Legacy 00:00:00 00:00:00 Visit [facility] [id number] [facility] 693682 [facility] Services 2019-10-07 2019-10-07 Office Director Graphics, Health [facility]ocate Student RAMIRO Castro Legacy Encounter/ Legacy 00:00:00 00:00:00 Visit [facility] [id number] [facility] 367161 [facility] 2019-10-07 2019-10-07 Office Germán Colette Manning [facility] Legacy En counter/ Legacy 00:00:00 00:00:00 Visit Tram Landaverde [facility] 1897 [id number] [facility] Polina [place] 118655 t y Yenni Gross WINDOWS SERVER ADMINISTRATOR [facility] 2019-10-06 2019-10-06 Office Peter [facility] Schaller Encoun ter/ Legacy 00:00:00 00:00:00 Visit Yina WINDOWS SERVER ADMINISTRATOR [id number] [facility] clint [id number] Health 2019-09-30 2019-09-30 Outpatient R CHAD [facility] [id number] 33245 Univers 15:00:00 15:00:00 JANNA patel [facility] 2019-09-16 2019-09-16 Letter Chad AZASTRID [id number] Univers 00:00:00 00:00:00 (Out) Janna Becker 350.1.13.10 i [place] [phone] [address] 2019-08-31 2019-08-31 [facility] 1.2.105.021 [id number] Univers 16:27:53 16:42:53 Janna Beaulieuton 350.1.13.10 ity of [place] [phone] [address] 2019-08-27 2019-08-27 Outpatient Estefani GILL [facility] [id number] Univers 15:00:00 18:05:33 GUILLERMINA ity of [facility] 2019-05-03 2019-05-03 Guerrero Fair [facility] [id number] [id number] Univers 00:00:00 00:00:00 Management Cam [place] 350.1.13.10 it[place] [phone] [address] 2019-04-21 2019-04-21 Case Guerrero Whitaker [facility] 1.2.291.125 [id number] Univers 00:00:00 00:00:00 Management Cam [place] 350.1.13.10 [place] [phone] [address] 2019-04-21 2019-04-21 Telephone Guerrero Whitaker [facility] 1.2.840.114 [id number] Univers 00:00:00 00:00:00 Cam [place] 350.1.13.10 i ty [place] [phone] [facility] [address] 2019-04-20 2019-04-20 Telephone Guerrero Whitaker [facility] 1.2.840.114 [id number] Univers 00:00:00 00:00:00 Cam [place] 350.1.13.10 i ty [place] [phone] [address] 2019-04-14 2019-04-14 Hotel Front Desk Agent 1, Adc Lab [facility] 1.2.840.114 [id number] Univers 15:00:27 15:15:27 Visit Guerrero Whitaker Eugenio 350.1.13.10 [place] [phone] [facility] [address] [place] 2019-04-14 2019-04-14 Outpatient R GUERRERO WHITAKER [facility] [id number] Univers 15:00:00 15:00:00 ity of [facility] 2019-04-14 2019-04-14 Routine Guerrero Whitaker [facility] 1.2.937.033 [id number] Univers 13:41:25 14:43:27 Zaheer Beaulieuton 350.1.13.10 ity [place] [phone] [address] 2019-04-14 2019-04-14 Letter Guerrero Whitaker [facility] 1.2.728.092 [id number] Univers 00:00:00 00:00:00 (Out) Zaheer Becker 350.1.13.10 i ty [place] [phone] [address] 2019-04-14 2019-04-14 Orders Doctor ZEV 1.2.840.114 [id number] Univers 00:00:00 00:00:00 Only Unassigned, NICK 350.1.13.10 it[facility] [place] [facility] 4.2.7.2.686 Dylon as [phone] [facility] [address] 2019-04-07 2019-04-07 Telephone Guerrero Whitaker [facility] 1.2.840.114 [id number] Univers 00:00:00 00:00:00 Cam [place] 350.1.13.10 i ty [place] [phone] [address] 2019-04-01 2019-04-01 Telephone Guerrero Whitaker [facility] 1.2.840.114 [id number] Univers 00:00:00 00:00:00 Cam [place] 350.1.13.10 i [place] [phone] [address] 2019-03-17 2019-03-24 Hotel Front Desk Agent 1, Adc Lab [facility] 1.2.840.114 [id number] Univers 10:12:58 08:59:00 Visit Guerrero Whitaker 350.1.13.10 ity [facility] 4[place]2.7.2.[place] [phone] [address] 2019-03-17 2019-03-17 Outpatient R GUERRERO WHITAKER [facility] [id number] Univers 10:15:00 10:15:00 ity of [facility] 2019-03-17 2019-03-17 Initial Guerrero Whitaker [facility] 1.2.646.198 [id number] Univers 08:58:48 10:02:46 Zaheer Becker 350.1.13.10 ity of [place] [phone] [address] Results Test Description Test Time Test Comments Results Result Comments Source TRICHOMONAS, NAAT, URINE 2022-10-18 16:23:16 Test Item Value Reference Range Interpretation Comme nts TRICHOMONAS, NAAT, URINE (test NEGATIVE NEGATIVE Testing is performed with Elpidio code = 12845) MIRA 6800/880 0 method usingreal-time polymerase chain reaction (PCR) method. A negative result does not exclude low level infection, spec imensampling error, or collection e rror. CHLAMYDIA, NAAT, [id number] 16:22:13 Test Item Value Reference Range Interpretation Comments CHLAMYDIA, NAAT, POSITIVE NEGATIVE A Testing is performed URINE (test code = with Roch e MIRA 76115) 6800/8800 syste ms usingreal-time polymerase chain reaction (PCR) method. GONORRHEA, NAAT, [id number] 16:22:13 Test Item Value Reference Range Interpretation Comments GONORRHEA, NAAT, NEGATIVE NEGATIVE Testing is performed with URINE (test code Elpidio MIRA 6800/8800 = 11751) systems usingre al-time polymerase davian n reaction (PCR) method. A negative result does not exclude low level infection , specimensamplin g error, or collection erro r. RPR REFLEX TO T. PALLIDUM - [id number] 05:31:29 Test Item Value Reference Range Interpretation Comments RPR (test code = 24695) NON-REACTIVE NON-REACTIVE RPR TITER (test code = 3500) NOT INDIC. TITER NOT INDIC. HEPATITIS PANEL, [id number] 05:05:42 Test Item Value Reference Range Interpretation Comments HEPATITIS A IgM (test NON-REACTIVE NON-REACTIVE code = 64899) HEPATITIS B CORE IgM NON-REACTIVE NON-REACTIVE (test code = 4644) HEPATITIS B SURF AG NON-REACTIVE NON-REACTIVE (test code = 2739) HEPATITIS C ANTIBODY NON-REACTIVE NON-REACTIVE (test code = 4675) INTERPRETATION (NOTE) Hepatitis A HEPATITIS A: (test serology shows no code = 2552) evidence of acu te hepatitis A. INTERPRETATION (NOTE) Hepatitis B HEPATITIS B: (test serology shows no code = 63454) evidence of ac christa hepatitis B and no indication of exposure to hepatitis B vir us in the previous si xto eight months. INTERPRETATION (NOTE) Hepatitis C HEPATITIS C: (test serology shows no code = 47174) evidence of ex posure to hepatitisC v irus at this time. I t can take up to 12 m onths after exposure tothe hepatitis C vir us for antibodies to become detectab le in the blood in ce rtain patients. José GUAMAN has important pathology staff changes effecti ve 10/16/2022. New pathology staff will provide uninterrupted, excellent patie nt care and clinic al consultation. S ee URL: [email or web address]. UNL ESS OTHERWISE INDIC ATED, ALL TESTING PERFORMED AT [facility] [place] [place] [address] [facility] DIRECTOR: CAMPOS ALVARENGA M.D. CLIA NUMBER [id number] [place]. [id number] HIV 1/2 4TH GEN, RFLX [id number] 05:05:42 Test Item Value Reference Range Interpretation Comments HIV 1/2 4TH GEN, RFLX CONF (test NON-REACTIVE NON-REACTIVE code = 3514) CHLAMYDIA, NAAT, [id number] 13:11:20 Test Item Value Reference Range Interpretation Comments CHLAMYDIA, NAAT NEGATIVE NEGATIVE IMPORTA NT NOTICE: SEE (test code = [place] [address]) [email or web address] Note: Assay methodology is nucleic acid amplification b y water treatment plant repairer m ediated amplification ( TMA) utilizing the A ptima Combo 2 Assay. GONORRHEA, NAAT, [id number] 13:11:20 Test Item Value Reference Range Interpretation Comments GONORRHEA, NAAT NEGATIVE NEGATIVE IMPORTA NT NOTICE: SEE (test code = [place] [address]) [email or web address] Note: Assay methodology is nucleic acid amplification b y water treatment plant repairer m ediated amplification ( TMA) utilizing the A ptima Combo 2 Assay. UNLESS OTHERWISE INDICATED, ALL TESTING PERFORMED [facility] [address] [place] [id number] [place] [address] DIRECTOR: CAMPOS ALVARENGA M.D. [place] NUMBER [id number] CAP ACCREDITATION N O. [id number] CHLAMYDIA, AMPLIFIED, [id number] 00:00:00 Test Item Value Reference Range Interpretation Comments CHLAMYDIA, NAAT (test code = 51261) NEGATIVE CHLAMYDIA, AMPLIFIED, [id number] 00:00:00 Test Item Value Reference Range Interpretation Comments CHLAMYDIA, NAAT (test code = 83625) NEGATIVE GC, AMPLIFIED, [id number] 00:00:00 Test Item Value Reference Range Interpretation Comments GONORRHEA, NAAT (test code = 27110) NEGATIVE GC, AMPLIFIED, [id number] 00:00:00 Test Item Value Reference Range Interpretation Comments GONORRHEA, NAAT (test code = 23612) NEGATIVE CHLAMYDIA, AMPLIFIED, [id number] 00:00:00 Test Item Value Reference Range Interpretation Comments CHLAMYDIA, NAAT (test code = 77208) NEGATIVE CHLAMYDIA, AMPLIFIED, [id number] 00:00:00 Test Item Value Reference Range Interpretation Comments CHLAMYDIA, NAAT (test code = 56611) NEGATIVE GC, AMPLIFIED, [id number] 00:00:00 Test Item Value Reference Range Interpretation Comments GONORRHEA, NAAT (test code = 47610) NEGATIVE GC, AMPLIFIED, [id number] 00:00:00 Test Item Value Reference Range Interpretation Comments GONORRHEA, NAAT (test code = 44741) NEGATIVE CHLAMYDIA, AMPLIFIED, [id number] 00:00:00 Test Item Value Reference Range Interpretation Comments CHLAMYDIA, NAAT (test code = 11377) NEGATIVE GC, AMPLIFIED, [id number] 00:00:00 Test Item Value Reference Range Interpretation Comments GONORRHEA, NAAT (test code = 77640) NEGATIVE CHLAMYDIA, AMPLIFIED, [id number] 00:00:00 Test Item Value Reference Range Interpretation Comments CHLAMYDIA, NAAT (test code = 45633) NEGATIVE GC, AMPLIFIED, [id number] 00:00:00 Test Item Value Reference Range Interpretation Comments GONORRHEA, NAAT (test code = 71173) NEGATIVE CHLAMYDIA, AMPLIFIED, [id number] 00:00:00 Test Item Value Reference Range Interpretation Comments CHLAMYDIA, NAAT (test code = 76558) NEGATIVE GC, AMPLIFIED, [id number] 00:00:00 Test Item Value Reference Range Interpretation Comments GONORRHEA, NAAT (test code = 78954) NEGATIVE CHLAMYDIA, AMPLIFIED, [id number] 00:00:00 Test Item Value Reference Range Interpretation Comments CHLAMYDIA, NAAT (test code = 78360) NEGATIVE CHLAMYDIA, AMPLIFIED, [id number] 00:00:00 Test Item Value Reference Range Interpretation Comments CHLAMYDIA, NAAT (test code = 00141) NEGATIVE GC, AMPLIFIED, [id number] 00:00:00 Test Item Value Reference Range Interpretation Comments GONORRHEA, NAAT (test code = 97363) NEGATIVE GC, AMPLIFIED, [id number] 00:00:00 Test Item Value Reference Range Interpretation Comments GONORRHEA, NAAT (test code = 16318) NEGATIVE CHLAMYDIA, AMPLIFIED, [id number] 00:00:00 Test Item Value Reference Range Interpretation Comments CHLAMYDIA, NAAT (test code = 60813) NEGATIVE GC, AMPLIFIED, [id number] 00:00:00 Test Item Value Reference Range Interpretation Comments GONORRHEA, NAAT (test code = 48364) NEGATIVE CHLAMYDIA, AMPLIFIED, [id number] 00:00:00 Test Item Value Reference Range Interpretation Comments CHLAMYDIA, NAAT (test code = 17050) NEGATIVE CHLAMYDIA, AMPLIFIED, [id number] 00:00:00 Test Item Value Reference Range Interpretation Comments CHLAMYDIA, NAAT (test code = 07429) NEGATIVE GC, AMPLIFIED, [id number] 00:00:00 Test Item Value Reference Range Interpretation Comments GONORRHEA, NAAT (test code = 72020) NEGATIVE GC, AMPLIFIED, [id number] 00:00:00 Test Item Value Reference Range Interpretation Comments GONORRHEA, NAAT (test code = 27248) NEGATIVE CT/NG, NAAT, [id number] 19:10:11 Test Item Value Reference Range Interpretation Comments GONORRHEA, NAAT NEGATIVE NEGATIVE IMPORTA NT NOTICE: SEE (test code = [place] [address]) [email or web address] Note: Assay methodology is nucleic acid amplification b y water treatment plant repairer m ediated amplification ( TMA) utilizing the A ptima Combo 2 Assay. CHLAMYDIA, NAAT POSITIVE NEGATIVE A IMPORTA NT NOTICE: SEE (test code = [place] [address]) [email or web address] Note: Assay methodology is nucleic acid amplification b y water treatment plant repairer m ediated amplification ( TMA) utilizing the A ptima Combo 2 Assay. UNLESS OTHERWISE INDICATED, ALL TESTING PERFORMED [facility] [address] [place] [phone] [place] [address] DIRECTOR: CAMPOS ALVARENGA M.D. CLIA NUMBER [id number] CAP ACCREDITATION N O. [id number] GC AND CHLAMYDIA, AMPLIFIED, [id number] 00:00:00 Test Item Value Reference Range Interpretation Comments GONORRHEA, NAAT (test code = 71727) NEGATIVE CHLAMYDIA, NAAT (test code = 92946) POSITIVE GC AND CHLAMYDIA, AMPLIFIED, [id number] 00:00:00 Test Item Value Reference Range Interpretation Comments GONORRHEA, NAAT (test code = 35996) NEGATIVE CHLAMYDIA, NAAT (test code = 19193) POSITIVE GC AND CHLAMYDIA, AMPLIFIED, [id number] 00:00:00 Test Item Value Reference Range Interpretation Comments GONORRHEA, NAAT (test code = 89785) NEGATIVE CHLAMYDIA, NAAT (test code = 45126) POSITIVE GC AND CHLAMYDIA, AMPLIFIED, [id number] 00:00:00 Test Item Value Reference Range Interpretation Comments GONORRHEA, NAAT (test code = 34148) NEGATIVE CHLAMYDIA, NAAT (test code = 52093) POSITIVE GC AND CHLAMYDIA, AMPLIFIED, [id number] 00:00:00 Test Item Value Reference Range Interpretation Comments GONORRHEA, NAAT (test code = 84407) NEGATIVE CHLAMYDIA, NAAT (test code = 39012) POSITIVE GC AND CHLAMYDIA, AMPLIFIED, [id number] 00:00:00 Test Item Value Reference Range Interpretation Comments GONORRHEA, NAAT (test code = 79209) NEGATIVE CHLAMYDIA, NAAT (test code = 24178) POSITIVE GC AND CHLAMYDIA, AMPLIFIED, [id number] 00:00:00 Test Item Value Reference Range Interpretation Comments GONORRHEA, NAAT (test code = 25153) NEGATIVE CHLAMYDIA, NAAT (test code = 81482) POSITIVE GC AND CHLAMYDIA, AMPLIFIED, [id number] 00:00:00 Test Item Value Reference Range Interpretation Comments GONORRHEA, NAAT (test code = 53560) NEGATIVE CHLAMYDIA, NAAT (test code = 27174) POSITIVE GC AND CHLAMYDIA, AMPLIFIED, [id number] 00:00:00 Test Item Value Reference Range Interpretation Comments GONORRHEA, NAAT (test code = 03483) NEGATIVE CHLAMYDIA, NAAT (test code = 82352) POSITIVE GC AND CHLAMYDIA, AMPLIFIED, [id number] 00:00:00 Test Item Value Reference Range Interpretation Comments GONORRHEA, NAAT (test code = 77728) NEGATIVE CHLAMYDIA, NAAT (test code = 72056) POSITIVE GC AND CHLAMYDIA, AMPLIFIED, [id number] 00:00:00 Test Item Value Reference Range Interpretation Comments GONORRHEA, NAAT (test code = 29023) NEGATIVE CHLAMYDIA, NAAT (test code = 49398) POSITIVE GC AND CHLAMYDIA, AMPLIFIED, [id number] 00:00:00 Test Item Value Reference Range Interpretation Comments GONORRHEA, NAAT (test code = 69875) NEGATIVE CHLAMYDIA, NAAT (test code = 91648) POSITIVE HIV AB/AG COMBO RFLX [id number] 00:00:00 Test Item Value Reference Range Interpretation Comments HIV 1/2 4TH GEN, RFLX CONF (test NON-REACTIVE code = 3514) HIV AB/AG COMBO RFLX [id number] 00:00:00 Test Item Value Reference Range Interpretation Comments HIV 1/2 4TH GEN, RFLX CONF (test NON-REACTIVE code = 3514) ACUTE HEPATITIS [id number] 00:00:00 Test Item Value Reference Range Interpretation Comments HEPATITIS A IgM (test code = NON-REACTIVE 49929) HEPATITIS B CORE IgM (test code NON-REACTIVE = 4644) HEPATITIS B SURF AG (test code = NON-REACTIVE 2739) HEPATITIS C ANTIBODY (test code NON-REACTIVE = 4675) INTERPRETATION HEPATITIS A: (NOTE) (test code = 2552) INTERPRETATION HEPATITIS B: (NOTE) (test code = 98285) INTERPRETATION HEPATITIS C: (NOTE) (test code = 95235) ACUTE HEPATITIS [id number] 00:00:00 Test Item Value Reference Range Interpretation Comments HEPATITIS A IgM (test code = NON-REACTIVE 65437) HEPATITIS B CORE IgM (test code NON-REACTIVE = 4644) HEPATITIS B SURF AG (test code = NON-REACTIVE 2739) HEPATITIS C ANTIBODY (test code NON-REACTIVE = 4675) INTERPRETATION HEPATITIS A: (NOTE) (test code = 2552) INTERPRETATION HEPATITIS B: (NOTE) (test code = 57967) INTERPRETATION HEPATITIS C: (NOTE) (test code = 53314) GC, AMPLIFIED, [id number] 00:00:00 Test Item Value Reference Range Interpretation Comments GONORRHEA, NAAT (test code = 24162) NEGATIVE GC, AMPLIFIED, [id number] 00:00:00 Test Item Value Reference Range Interpretation Comments GONORRHEA, NAAT (test code = 01057) NEGATIVE CHLAMYDIA, AMPLIFIED, [id number] 00:00:00 Test Item Value Reference Range Interpretation Comments CHLAMYDIA, NAAT (test code = 70249) POSITIVE CHLAMYDIA, AMPLIFIED, [id number] 00:00:00 Test Item Value Reference Range Interpretation Comments CHLAMYDIA, NAAT (test code = 38875) POSITIVE HIV AB/AG COMBO RFLX [id number] 00:00:00 Test Item Value Reference Range Interpretation Comments HIV 1/2 4TH GEN, RFLX CONF (test NON-REACTIVE code = 3514) HIV AB/AG COMBO RFLX [id number] 00:00:00 Test Item Value Reference Range Interpretation Comments HIV 1/2 4TH GEN, RFLX CONF (test NON-REACTIVE code = 3514) ACUTE HEPATITIS [id number] 00:00:00 Test Item Value Reference Range Interpretation Comments HEPATITIS A IgM (test code = NON-REACTIVE 58513) HEPATITIS B CORE IgM (test code NON-REACTIVE = 4644) HEPATITIS B SURF AG (test code = NON-REACTIVE 2739) HEPATITIS C ANTIBODY (test code NON-REACTIVE = 4675) INTERPRETATION HEPATITIS A: (NOTE) (test code = 2552) INTERPRETATION HEPATITIS B: (NOTE) (test code = 02091) INTERPRETATION HEPATITIS C: (NOTE) (test code = 69733) ACUTE HEPATITIS [id number] 00:00:00 Test Item Value Reference Range Interpretation Comments HEPATITIS A IgM (test code = NON-REACTIVE 91987) HEPATITIS B CORE IgM (test code NON-REACTIVE = 4644) HEPATITIS B SURF AG (test code = NON-REACTIVE 2739) HEPATITIS C ANTIBODY (test code NON-REACTIVE = 4675) INTERPRETATION HEPATITIS A: (NOTE) (test code = 2552) INTERPRETATION HEPATITIS B: (NOTE) (test code = 79825) INTERPRETATION HEPATITIS C: (NOTE) (test code = 20703) GC, AMPLIFIED, [id number] 00:00:00 Test Item Value Reference Range Interpretation Comments GONORRHEA, NAAT (test code = 60597) NEGATIVE GC, AMPLIFIED, [id number] 00:00:00 Test Item Value Reference Range Interpretation Comments GONORRHEA, NAAT (test code = 51792) NEGATIVE CHLAMYDIA, AMPLIFIED, [id number] 00:00:00 Test Item Value Reference Range Interpretation Comments CHLAMYDIA, NAAT (test code = 14091) POSITIVE CHLAMYDIA, AMPLIFIED, [id number] 00:00:00 Test Item Value Reference Range Interpretation Comments CHLAMYDIA, NAAT (test code = 23775) POSITIVE HIV AB/AG COMBO RFLX [id number] 00:00:00 Test Item Value Reference Range Interpretation Comments HIV 1/2 4TH GEN, RFLX CONF (test NON-REACTIVE code = 3514) ACUTE HEPATITIS [id number] 00:00:00 Test Item Value Reference Range Interpretation Comments HEPATITIS A IgM (test code = NON-REACTIVE 39986) HEPATITIS B CORE IgM (test code NON-REACTIVE = 4644) HEPATITIS B SURF AG (test code = NON-REACTIVE 2739) HEPATITIS C ANTIBODY (test code NON-REACTIVE = 4675) INTERPRETATION HEPATITIS A: (NOTE) (test code = 2552) INTERPRETATION HEPATITIS B: (NOTE) (test code = 43491) INTERPRETATION HEPATITIS C: (NOTE) (test code = 51683) GC, AMPLIFIED, [id number] 00:00:00 Test Item Value Reference Range Interpretation Comments GONORRHEA, NAAT (test code = 29793) NEGATIVE CHLAMYDIA, AMPLIFIED, [id number] 00:00:00 Test Item Value Reference Range Interpretation Comments CHLAMYDIA, NAAT (test code = 04191) POSITIVE HIV AB/AG COMBO RFLX [id number] 00:00:00 Test Item Value Reference Range Interpretation Comments HIV 1/2 4TH GEN, RFLX CONF (test NON-REACTIVE code = 3514) ACUTE HEPATITIS [id number] 00:00:00 Test Item Value Reference Range Interpretation Comments HEPATITIS A IgM (test code = NON-REACTIVE 91376) HEPATITIS B CORE IgM (test code NON-REACTIVE = 4644) HEPATITIS B SURF AG (test code = NON-REACTIVE 2739) HEPATITIS C ANTIBODY (test code NON-REACTIVE = 4675) INTERPRETATION HEPATITIS A: (NOTE) (test code = 2552) INTERPRETATION HEPATITIS B: (NOTE) (test code = 61291) INTERPRETATION HEPATITIS C: (NOTE) (test code = 34346) GC, AMPLIFIED, [id number] 00:00:00 Test Item Value Reference Range Interpretation Comments GONORRHEA, NAAT (test code = 58459) NEGATIVE CHLAMYDIA, AMPLIFIED, [id number] 00:00:00 Test Item Value Reference Range Interpretation Comments CHLAMYDIA, NAAT (test code = 22782) POSITIVE HIV AB/AG COMBO RFLX [id number] 00:00:00 Test Item Value Reference Range Interpretation Comments HIV 1/2 4TH GEN, RFLX CONF (test NON-REACTIVE code = 3514) ACUTE HEPATITIS [id number] 00:00:00 Test Item Value Reference Range Interpretation Comments HEPATITIS A IgM (test code = NON-REACTIVE 99269) HEPATITIS B CORE IgM (test code NON-REACTIVE = 4644) HEPATITIS B SURF AG (test code = NON-REACTIVE 2739) HEPATITIS C ANTIBODY (test code NON-REACTIVE = 4675) INTERPRETATION HEPATITIS A: (NOTE) (test code = 2552) INTERPRETATION HEPATITIS B: (NOTE) (test code = 79248) INTERPRETATION HEPATITIS C: (NOTE) (test code = 32939) GC, AMPLIFIED, [id number] 00:00:00 Test Item Value Reference Range Interpretation Comments GONORRHEA, NAAT (test code = 21914) NEGATIVE CHLAMYDIA, AMPLIFIED, [id number] 00:00:00 Test Item Value Reference Range Interpretation Comments CHLAMYDIA, NAAT (test code = 53637) POSITIVE HIV AB/AG COMBO RFLX [id number] 00:00:00 Test Item Value Reference Range Interpretation Comments HIV 1/2 4TH GEN, RFLX CONF (test NON-REACTIVE code = 3514) HIV AB/AG COMBO RFLX [id number] 00:00:00 Test Item Value Reference Range Interpretation Comments HIV 1/2 4TH GEN, RFLX CONF (test NON-REACTIVE code = 3514) ACUTE HEPATITIS [id number] 00:00:00 Test Item Value Reference Range Interpretation Comments HEPATITIS A IgM (test code = NON-REACTIVE 83058) HEPATITIS B CORE IgM (test code NON-REACTIVE = 4644) HEPATITIS B SURF AG (test code = NON-REACTIVE 2739) HEPATITIS C ANTIBODY (test code NON-REACTIVE = 4675) INTERPRETATION HEPATITIS A: (NOTE) (test code = 2552) INTERPRETATION HEPATITIS B: (NOTE) (test code = 27491) INTERPRETATION HEPATITIS C: (NOTE) (test code = 63848) ACUTE HEPATITIS [id number] 00:00:00 Test Item Value Reference Range Interpretation Comments HEPATITIS A IgM (test code = NON-REACTIVE 57840) HEPATITIS B CORE IgM (test code NON-REACTIVE = 4644) HEPATITIS B SURF AG (test code = NON-REACTIVE 2739) HEPATITIS C ANTIBODY (test code NON-REACTIVE = 4675) INTERPRETATION HEPATITIS A: (NOTE) (test code = 2552) INTERPRETATION HEPATITIS B: (NOTE) (test code = 56702) INTERPRETATION HEPATITIS C: (NOTE) (test code = 01179) GC, AMPLIFIED, [id number] 00:00:00 Test Item Value Reference Range Interpretation Comments GONORRHEA, NAAT (test code = 17072) NEGATIVE GC, AMPLIFIED, [id number] 00:00:00 Test Item Value Reference Range Interpretation Comments GONORRHEA, NAAT (test code = 12713) NEGATIVE CHLAMYDIA, AMPLIFIED, [id number] 00:00:00 Test Item Value Reference Range Interpretation Comments CHLAMYDIA, NAAT (test code = 30585) POSITIVE CHLAMYDIA, AMPLIFIED, [id number] 00:00:00 Test Item Value Reference Range Interpretation Comments CHLAMYDIA, NAAT (test code = 81733) POSITIVE HIV AB/AG COMBO RFLX [id number] 00:00:00 Test Item Value Reference Range Interpretation Comments HIV 1/2 4TH GEN, RFLX CONF (test NON-REACTIVE code = 3514) ACUTE HEPATITIS [id number] 00:00:00 Test Item Value Reference Range Interpretation Comments HEPATITIS A IgM (test code = NON-REACTIVE 42750) HEPATITIS B CORE IgM (test code NON-REACTIVE = 4644) HEPATITIS B SURF AG (test code = NON-REACTIVE 2739) HEPATITIS C ANTIBODY (test code NON-REACTIVE = 4675) INTERPRETATION HEPATITIS A: (NOTE) (test code = 2552) INTERPRETATION HEPATITIS B: (NOTE) (test code = 54827) INTERPRETATION HEPATITIS C: (NOTE) (test code = 49639) HIV AB/AG COMBO RFLX [id number] 00:00:00 Test Item Value Reference Range Interpretation Comments HIV 1/2 4TH GEN, RFLX CONF (test NON-REACTIVE code = 3514) HIV AB/AG COMBO RFLX [id number] 00:00:00 Test Item Value Reference Range Interpretation Comments HIV 1/2 4TH GEN, RFLX CONF (test NON-REACTIVE code = 3514) GC, AMPLIFIED, [id number] 00:00:00 Test Item Value Reference Range Interpretation Comments GONORRHEA, NAAT (test code = 40205) NEGATIVE ACUTE HEPATITIS [id number] 00:00:00 Test Item Value Reference Range Interpretation Comments HEPATITIS A IgM (test code = NON-REACTIVE 16330) HEPATITIS B CORE IgM (test code NON-REACTIVE = 4644) HEPATITIS B SURF AG (test code = NON-REACTIVE 2739) HEPATITIS C ANTIBODY (test code NON-REACTIVE = 4675) INTERPRETATION HEPATITIS A: (NOTE) (test code = 2552) INTERPRETATION HEPATITIS B: (NOTE) (test code = 33505) INTERPRETATION HEPATITIS C: (NOTE) (test code = 10330) ACUTE HEPATITIS [id number] 00:00:00 Test Item Value Reference Range Interpretation Comments HEPATITIS A IgM (test code = NON-REACTIVE 71739) HEPATITIS B CORE IgM (test code NON-REACTIVE = 4644) HEPATITIS B SURF AG (test code = NON-REACTIVE 8399) HEPATITIS C ANTIBODY (test code NON-REACTIVE = 4675) INTERPRETATION HEPATITIS A: (NOTE) (test code = 2552) INTERPRETATION HEPATITIS B: (NOTE) (test code = 64522) INTERPRETATION HEPATITIS C: (NOTE) (test code = 96032) GC, AMPLIFIED, [id number] 00:00:00 Test Item Value Reference Range Interpretation Comments GONORRHEA, NAAT (test code = 08681) NEGATIVE GC, AMPLIFIED, [id number] 00:00:00 Test Item Value Reference Range Interpretation Comments GONORRHEA, NAAT (test code = 46742) NEGATIVE CHLAMYDIA, AMPLIFIED, [id number] 00:00:00 Test Item Value Reference Range Interpretation Comments CHLAMYDIA, NAAT (test code = 61201) POSITIVE CHLAMYDIA, AMPLIFIED, [id number] 00:00:00 Test Item Value Reference Range Interpretation Comments CHLAMYDIA, NAAT (test code = 91698) POSITIVE CHLAMYDIA, AMPLIFIED, [id number] 00:00:00 Test Item Value Reference Range Interpretation Comments CHLAMYDIA, NAAT (test code = 68655) POSITIVE hepatitis B surface [id number] 15:42:00 Test Item Value Reference Range Interpretation Comments hepatitis B surface antigen (test Negative Negative code = 79) [facility] [id number] 15:42:00 Test Item Value Reference Range Interpretation Comments Rh antibody (test code = 256) Negative Negative [facility], 1 hour after 50 gm oral [id number] 15:42:00 Test Item Value Reference Range Interpretation Comments blood glucose, 1 hour after 50 gm 111 mg/dL 65-139 oral glucose (test code = 1039) [facility] (Chemiluminescent Microparticle Immuno Assay) 2019-10-14 15:42:00 Test Item Value Reference Range Interpretation Comments HIV-CMIA (Chemiluminescent Non Reactive Non Reactive Microparticle Immuno Assay) (test code = 089015) [facility] reagin antibody, [id number] 15:42:00 Test Item Value Reference Range Interpretation Comments rapid plasma reagin antibody, Non Reactive Non Reactive serum (test code = 308) [facility], serum, [id number] 15:42:00 Test Item Value Reference Range Interpretation Comments rubella antibody, serum, IgG (test code 1.33 Immune >0.99 = 81) [facility] [id number] 15:42:00 Test Item Value Reference Range Interpretation Comments Rh antigen (test code = 255) Positive [facility]AB[facility] blood [id number] 15:42:00 Test Item Value Reference Range Interpretation Comments ABO blood group (test code = 116) A [facility] HospitalNeisseria gonorrhoeae DNA [id number] 15:42:00 Test Item Value Reference Range Interpretation Comments Neisseria gonorrhoeae DNA probe Negative Negative (test code = 30863-1) [facility]chlamydia DNA [id number] 15:42:00 Test Item Value Reference Range Interpretation Comments chlamydia DNA probe (test code = Negative Negative 57225-7) [facility]immature granulocytes, percentage of total cells, blood 2019-10-14 15:42:00 Test Item Value Reference Range Interpretation Comments immature granulocytes, percentage of 0 % total cells, blood (test code = 035111) [facility] count, [id number] 15:42:00 Test Item Value Reference Range Interpretation Comments basophil count, absolute (test 0.0 x10E3/uL 0.0-0.3 code = 97780) [facility] HospitalEosinophil Absolute [id number] 15:42:00 Test Item Value Reference Range Interpretation Comments Eosinophil Absolute Count (test 0.0 X10E3/UL 0.0-0.4 code = 138823) [facility]monocyte count, blood, [id number] 15:42:00 Test Item Value Reference Range Interpretation Comments monocyte count, blood, automated 0.8 X10E3/UL 0.1-0.9 (test code = 3076) [facility]allymph[facility], blood, [id number] 15:42:00 Test Item Value Reference Range Interpretation Comments lymphocyte count, blood, 1.2 X10E3/UL 0.7-3.1 automated (test code = 3074) [facility] HospitalAbsolute [id number] 15:42:00 Test Item Value Reference Range Interpretation Comments Absolute Neutrophils (test code 7.7 X10E3/UL 1.4-7.0 H = 20672) [facility]basophils as percent of blood [id number] 15:42:00 Test Item Value Reference Range Interpretation Comments basophils as percent of blood 0 % leukocytes (test code = 2426) [facility] Healtheosinophils as percent of blood [id number] 15:42:00 Test Item Value Reference Range Interpretation Comments eosinophils as percent of blood 0 % leukocytes (test code = 4170) [facility] Healthmonocytes as percent of blood [id number] 15:42:00 Test Item Value Reference Range Interpretation Comments monocytes as percent of blood 8 % leukocytes (test code = 2421) [facility]allymphocytes as percent of blood [id number] 15:42:00 Test Item Value Reference Range Interpretation Comments lymphocytes as percent of blood 12 % leukocytes (test code = 317) [facility]neutrophils as percent of blood [id number] 15:42:00 Test Item Value Reference Range Interpretation Comments neutrophils as percent of blood 80 % leukocytes (test code = 316) [facility] Hospitalplatelet [id number] 15:42:00 Test Item Value Reference Range Interpretation Comments platelet count (test code = 66) 422 X10E3/UL 150-450 [facility] [id number] 15:42:00 Test Item Value Reference Range Interpretation Comments red blood cell distribution width 14.1 % 11.7-15.4 (test code = 1030) [facility] hemoglobin concentration, [id number] 15:42:00 Test Item Value Reference Range Interpretation Comments mean corpuscular hemoglobin 32.3 G/DL 31.5-35.7 concentration, RBC (test code = 1029) [facility] corpuscular hemoglobin, [id number] 15:42:00 Test Item Value Reference Range Interpretation Comments mean corpuscular hemoglobin, RBC 24.2 pg 26.6-33.0 L (test code = 1031) [facility]mean corpus[facility] volume, [id number] 15:42:00 Test Item Value Reference Range Interpretation Comments mean corpuscular volume, RBC (test code 75 fL 79-97 L = 315) [facility]hematocrit, [id number] 15:42:00 Test Item Value Reference Range Interpretation Comments hematocrit, blood (test code = 64) 32.2 % 34.0-46.6 L [facility]hemoglobin, [id number] 15:42:00 Test Item Value Reference Range Interpretation Comments hemoglobin, blood (test code = 65) 10.4 g/dL 11.1-15.9 L [facility] Hospitalerythrocyte (RBC) [id number] 15:42:00 Test Item Value Reference Range Interpretation Comments erythrocyte (RBC) count (test 4.30 X10E6/UL 3.77-5.28 code = 67) [facility]leukocyte count, [id number] 15:42:00 Test Item Value Reference Range Interpretation Comments leukocyte count, blood (test 9.7 X10E3/UL 3.4-10.8 code = 68) [facility] [id number] 15:14:00 Test Item Value Reference Range Interpretation Comments urine culture (test code = 72332) No growth [facility] HospitalNeisseria gonorrhoeae DNA [id number] 15:14:00 Test Item Value Reference Range Interpretation Comments Neisseria gonorrhoeae DNA probe Negative Negative (test code = 17755-2) [facility] Hospitalchlamydia DNA [id number] 15:14:00 Test Item Value Reference Range Interpretation Comments chlamydia DNA probe (test code = Negative Negative 08927-0) [facility] HospitalVaginal Group B Strep by Real-Time [id number] 16:28:00 Test Item Value Reference Range Interpretation Comments Vaginal Group B Strep by Real-Time Negative Negative PCR (test code = 262990) [facility] [id number] 16:27:00 Test Item Value Reference Range Interpretation Comments urine culture (test code = 47009) MUG [facility] Hospitalprotein, urine, semiquantitative (dipstick)2019-10-07 16:27:00 Test Item Value Reference Range Interpretation Comments protein, urine, semiquantitative 33.6 (dipstick) (test code = 1753-3) [facility] Hospitalcreatinine, random, [id number] 16:27:00 Test Item Value Reference Range Interpretation Comments creatinine, random, urine (test 121.8 mg/dL code = 5167) [facility]hematocrit, [id number] 15:59:00 Test Item Value Reference Range Interpretation Comments hematocrit, blood (test code = 64) 34.8 % 34.0-46.6 [facility] Hospitalhemoglobin, [id number] 15:59:00 Test Item Value Reference Range Interpretation Comments hemoglobin, blood (test code = 65) 10.8 g/dL 11.1-15.9 L [facility] Hospitalerythrocyte (RBC) [id number] 15:59:00 Test Item Value Reference Range Interpretation Comments erythrocyte (RBC) count (test 4.42 X10E6/UL 3.77-5.28 code = 67) [facility] Hospitalleukocyte count, [id number] 15:59:00 Test Item Value Reference Range Interpretation Comments leukocyte count, blood (test 12.6 X10E3/UL 3.4-10.8 H code = 68) [facility] Hospitalalanine aminotransferase (SGPT), [id number] 15:59:00 Test Item Value Reference Range Interpretation Comments alanine aminotransferase (SGPT), serum 13 1/L 0-24 (test code = 40) [facility] Hospitalaspartate aminotransferase (SGOT), [id number] 15:59:00 Test Item Value Reference Range Interpretation Comments aspartate aminotransferase (SGOT), 16 1/L 0-40 serum (test code = 39) [facility] HospitalHIV-CMIA (Chemiluminescent Microparticle Immuno Assay) 2019-10-07 15:59:00 Test Item Value Reference Range Interpretation Comments HIV-CMIA (Chemiluminescent Non Reactive Non Reactive Microparticle Immuno Assay) (test code = 868124) [facility] Hospitalrapid plasma reagin antibody, [id number] 15:59:00 Test Item Value Reference Range Interpretation Comments rapid plasma reagin antibody, Non Reactive Non Reactive serum (test code = 308) [facility] Hospitalimmature granulocytes, percentage of total cells, blood 2019-10-07 15:59:00 Test Item Value Reference Range Interpretation Comments immature granulocytes, percentage of 3 % total cells, blood (test code = 368351) [facility] Healthbasophil count, [id number] 15:59:00 Test Item Value Reference Range Interpretation Comments basophil count, absolute (test 0.0 x10E3/uL 0.0-0.3 code = 63315) [facility] HealthEosinophil Absolute [id number] 15:59:00 Test Item Value Reference Range Interpretation Comments Eosinophil Absolute Count (test 0.1 X10E3/UL 0.0-0.4 code = 905653) [facility] Hospitalmonocyte count, blood, [id number] 15:59:00 Test Item Value Reference Range Interpretation Comments monocyte count, blood, automated 1.2 X10E3/UL 0.1-0.9 H (test code = 3076) [facility] Hospitallymphocyte count, blood, [id number] 15:59:00 Test Item Value Reference Range Interpretation Comments lymphocyte count, blood, 1.6 X10E3/UL 0.7-3.1 automated (test code = 3074) [facility] HospitalAbsolute [id number] 15:59:00 Test Item Value Reference Range Interpretation Comments Absolute Neutrophils (test code 9.4 X10E3/UL 1.4-7.0 H = 34114) [facility] Hospitalbasophils as percent of blood fyxycpgfcl6828-39-64 15:59:00 Test Item Value Reference Range Interpretation Comments basophils as percent of blood 0 % leukocytes (test code = 2426) [facility] Healtheosinophils as percent of blood agvigazwfo5651-26-82 15:59:00 Test Item Value Reference Range Interpretation Comments eosinophils as percent of blood 1 % leukocytes (test code = 4170) [facility] Healthmonocytes as percent of blood zpjlcwjyia5099-72-23 15:59:00 Test Item Value Reference Range Interpretation Comments monocytes as percent of blood 10 % leukocytes (test code = 2421) [facility] Hospitallymphocytes as percent of blood [id number] 15:59:00 Test Item Value Reference Range Interpretation Comments lymphocytes as percent of blood 13 % leukocytes (test code = 317) [facility] Hospitalneutrophils as percent of blood qkjmgpmzfr1233-05-89 15:59:00 Test Item Value Reference Range Interpretation Comments neutrophils as percent of blood 73 % leukocytes (test code = 316) [facility] Hospitalplatelet [id number] 15:59:00 Test Item Value Reference Range Interpretation Comments platelet count (test code = 66) 417 X10E3/UL 150-450 [facility] Hospitalred blood cell distribution [id number] 15:59:00 Test Item Value Reference Range Interpretation Comments red blood cell distribution width 14.2 % 11.7-15.4 (test code = 1030) [facility] corpuscular hemoglobin concentration, [id number] 15:59:00 Test Item Value Reference Range Interpretation Comments mean corpuscular hemoglobin 31.0 G/DL 31.5-35.7 L concentration, RBC (test code = 1029) [facility] corpuscular hemoglobin, [id number] 15:59:00 Test Item Value Reference Range Interpretation Comments mean corpuscular hemoglobin, RBC 24.4 pg 26.6-33.0 L (test code = 1031) [facility] corpuscular volume, [id number] 15:59:00 Test Item Value Reference Range Interpretation Comments mean corpuscular volume, RBC (test code 79 fL 79-97 = 315) [facility] HospitalHerpes Simplex Virus [id number] 14:07:37 Test Item Value Reference Range Interpretation Comments Herpes Simplex Virus Genital (test code no = 4258) [facility] HospitalPOCT URINALYSIS W/O SPECIFIC [id number] 23:11:00 Test Item Value Reference Range Interpretation [...] Negative Lab Interpretation (test code = Normal 75931-1) [facility]<14 WEEKS US [id number] 17:45:03Addendum by Guerrero Whitaker MD on 04/16/2019 12:47 PMLimited USG for dating and viability:?Single live IUP measured 10 5/7 weeks.?Will date by this USG unless clinically indicated otherwise Guerrero Whitaker MD?04/16/2019?12:44 PM Limited USG for dating and viability:?Single live IUP measured 105/7 weeks.?Will date by this USG unless clinically indicated otherwise Guerrero Whitaker MD?04/16/2019?12:44 PMUnH[facility]woodCBC WITH DIFFERENTIAL 2019-04-14 21:44:00 Test Item Value Reference Range Interpretation Comments WBC (test code = See_Comment [Automated 5090-2) message] The sy stem which generated this result transmitted reference range : 4.50 - 13.50 10*3/?L. The reference range was not used to interpret this result as normal/abnormal . RBC (test code = See_Comment [Automated 719-8) message] The sy stem which generated this [...] (test code = 37.2 fL 38.5-49 L 89440-8) RDW-CV (test code = 12.5 % 11.5-14 788-0) PLT (test code = See_Comment H [Automated 797-3) message] The sy stem which generated this result transmitted reference range : 135 - 361 10*3/ ?L. The reference r sabrina was not used to interpret this result as normal/abnormal . MPV (test code = 8.8 fL 9.4-13.3 L 32763-0) NRBC/100 WBC (test See_Comment [Automat ed code = 3974338526) message] The system which generated this result transmitted reference range : 0.0 - 10.0 /100 WBCs. The refer ence range was not u sed to interpret th is result as normal/abnormal . NRBC x10^3 (test code <0.01 See_Comment [Auto mated = 8724592234) message] The s ystem which generated this result transmitted reference range : 10*3/?L. The reference range was not used to interpret this result as normal/abnormal . GRAN MAT (NEUT) % 71.3 % (test code = 770-8) IMM GRAN % (test code 0.40 % = 4331890143) LYMPH % (test code = 19.6 % 736-9) MONO % (test code = 7.8 % 5905-5) EOS % (test code = 0.5 % 713-8) BASO % (test code = 0.4 % 706-2) GRAN MAT x10^3(ANC) 5.21 10*3/uL 1.5-10.3 (test code = 7982756884) IMM GRAN x10^3 (test 0.03 10*3/uL 0-0.06 code = 5410493388) LYMPH x10^3 (test code 1.43 10*3/uL 0.7-7.4 = 731-0) MONO x10^3 (test code 0.57 10*3/uL 0-0.5 H = 742-7) EOS x10^3 (test code = 0.04 10*3/uL 0-0.4 711-2) BASO x10^3 (test code 0.03 10*3/uL 0-0.1 = 704-7) Lab Interpretation Abnormal (test code = 67390-4) [facility]<14 WEEKS US [id number] 23:55:04Limited USG for dating due to irregular periods:?transabdominal USG showed intrauterine gestational sac with yolk sac and no pole Guerrero Whitaker MD?03/20/2019?6:54 PMUnHCA [facility] Healthcare KingwoodGALV ONLY - VAGINAL PATHOGENS BY DNA [id number] 17:42:00 Test Item Value Reference Range Interpretation Comments Trichomonas vaginalis (test code = Negative Negative 2915302279) Gardnerella vaginalis (test code = Negative Negative 3171195836) Susan species (test code = Negative Negative 5235794728) Lab Interpretation (test code = Normal 35612-5) [facility] HospitalGC & CHLAMYDIA AMPLIFIED [id number] 17:25:00 Test Item Value Reference Range Interpretation Comments Lab Interpretation (test code = Normal 06014-4) [facility]ADC / LCC - DRUG SCREEN [id number] 02:43:00 Test Item Value Reference Range Interpretation Comments BENZO U (test code = Negative Negative 8426722433) ELVIS U (test code = Negative Negative 3230672047) AMPHET (test code = Negative Negative 8043271651) THC (test code = Negative Negative 8204712577) METHADONE (test code = Negative Negative 7578677317) Meth U (test code = Negative Negative 8158030016) OPIATES (test code = Negative Negative 9779324946) Cocaine Metabolite (test Negative Negative code = 4921774227) PROPOXY (test code = Negative Negative 2821304138) Tric U (test code = Negative Negative 7312463951) PCP (test code = Negative Negative 7199373087) OXYCOD (test code = Negative Negative 7626800643) ARNULFO (test code = ARNULFO) Urine Drug [...] testing). Lab Interpretation (test Normal code = 45878-8) [facility] HospitalTOTAL BETA HCG [id number] 17:07:00 Test Item Value Reference Range Interpretation Comments BETA HCG (test See_Comment [Automated m essage] code = The system whic h 1430687436) generated this result transmit radha reference range : Non- fe male and male patien ts: <5 mIU/mL. The reference range was not used to interpret this result as normal/abnormal . ARNULFO (test code Gestational = ARNULFO) Age?Range (mIU/mL)1-10?Weeks?4 4-29998272-92 Weeks?21740-63623525 -22 Weeks?7480-17944899- 40 Weeks?1531-496486Hxv tin has been reported to cause a negative bias, interpret results relative to patient's use of biotin. [facility] URINALYSIS W/O SPECIFIC [id number] 14:40:00 Test Item Value Reference Range Interpretation [...] code = 3257) N/A Negative - Negative [facility]POCT [id number] 14:30:00 Test Item Value Reference Range Interpretation Comments POCT PREG (test code = 1605) Positive On board controls acceptable with C Yes Line (test code = 3574) POCT PREG LOT # (test code = 3575) POCT PREG TEST DATE (test code = 3576) [facility] HospitalLIPID [id number] 00:00:00 Test Item Value Reference Range Interpretation Comments CHOLESTEROL (test code = 2210) 151 MG/DL TRIGLYCERIDES (test code = 2232) 101 MG/DL HDL CHOLESTEROL (test code = 2220) 52 MG/DL CALC LDL CHOL (test code = 2237) 79 MG/DL RISK RATIO LDL/HDL (test code = 1.52 RATIO 2238) LIPID [id number] 00:00:00 Test Item Value Reference Range Interpretation Comments CHOLESTEROL (test code = 2210) 151 MG/DL TRIGLYCERIDES (test code = 2232) 101 MG/DL HDL CHOLESTEROL (test code = 2220) 52 MG/DL CALC LDL CHOL (test code = 2237) 79 MG/DL RISK RATIO LDL/HDL (test code = 1.52 RATIO 2238) BASIC METABOLIC [id number] 00:00:00 Test Item Value Reference Range Interpretation Comments GLUCOSE (test code = 96 MG/DL 2216) BUN (test code = 2208) 9 MG/DL CREATININE (test code = 0.45 MG/DL 4) eGFR AMER. (test (NOTE) ML/MIN/1.73 code = 73892) eGFR NON- AMER. NO CALC ML/MIN/1.73 (test code = 19621) SODIUM (test code = 2231) 142 MEQ/L POTASSIUM (test code = 4.1 MEQ/L 8) CHLORIDE (test code = 103 MEQ/L 2215) CARBON DIOXIDE (test code 26 MEQ/L = 2206) CALCIUM (test code = 8.6 MG/DL 2208) BASIC METABOLIC [id number] 00:00:00 Test Item Value Reference Range Interpretation Comments GLUCOSE (test code = 96 MG/DL 2216) BUN (test code = 2208) 9 MG/DL CREATININE (test code = 0.45 MG/DL 4) eGFR AMER. (test (NOTE) ML/MIN/1.73 code = 88438) eGFR NON- AMER. NO CALC ML/MIN/1.73 (test code = 24975) SODIUM (test code = 2231) 142 MEQ/L POTASSIUM (test code = 4.1 MEQ/L 2228) CHLORIDE (test code = 103 MEQ/L 2215) CARBON DIOXIDE (test code 26 MEQ/L = 2206) CALCIUM (test code = 8.6 MG/DL 2208) LIPID [id number] 00:00:00 Test Item Value Reference Range Interpretation Comments CHOLESTEROL (test code = 2210) 151 MG/DL TRIGLYCERIDES (test code = 2232) 101 MG/DL HDL CHOLESTEROL (test code = 2220) 52 MG/DL CALC LDL CHOL (test code = 2237) 79 MG/DL RISK RATIO LDL/HDL (test code = 1.52 RATIO 2238) LIPID [id number] 00:00:00 Test Item Value Reference Range Interpretation Comments CHOLESTEROL (test code = 2210) 151 MG/DL TRIGLYCERIDES (test code = 2232) 101 MG/DL HDL CHOLESTEROL (test code = 2220) 52 MG/DL CALC LDL CHOL (test code = 2237) 79 MG/DL RISK RATIO LDL/HDL (test code = 1.52 RATIO 2238) BASIC METABOLIC [id number] 00:00:00 Test Item Value Reference Range Interpretation Comments GLUCOSE (test code = 96 MG/DL 2216) BUN (test code = 2208) 9 MG/DL CREATININE (test code = 0.45 MG/DL 4) eGFR AMER. (test (NOTE) ML/MIN/1.73 code = 61988) eGFR NON- AMER. NO CALC ML/MIN/1.73 (test code = 14803) SODIUM (test code = 2231) 142 MEQ/L POTASSIUM (test code = 4.1 MEQ/L 8) CHLORIDE (test code = 103 MEQ/L 2215) CARBON DIOXIDE (test code 26 MEQ/L = 2206) CALCIUM (test code = 8.6 MG/DL 2208) BASIC METABOLIC [id number] 00:00:00 Test Item Value Reference Range Interpretation Comments GLUCOSE (test code = 96 MG/DL 2216) BUN (test code = 2208) 9 MG/DL CREATININE (test code = 0.45 MG/DL 4) eGFR AMER. (test (NOTE) ML/MIN/1.73 code = 03304) eGFR NON- AMER. NO CALC ML/MIN/1.73 (test code = 19735) SODIUM (test code = 2231) 142 MEQ/L POTASSIUM (test code = 4.1 MEQ/L 2228) CHLORIDE (test code = 103 MEQ/L 2215) CARBON DIOXIDE (test code 26 MEQ/L = 2206) CALCIUM (test code = 8.6 MG/DL 2208) LIPID [id number] 00:00:00 Test Item Value Reference Range Interpretation Comments CHOLESTEROL (test code = 2210) 151 MG/DL TRIGLYCERIDES (test code = 2232) 101 MG/DL HDL CHOLESTEROL (test code = 2220) 52 MG/DL CALC LDL CHOL (test code = 2237) 79 MG/DL RISK RATIO LDL/HDL (test code = 1.52 RATIO 2238) BASIC METABOLIC [id number] 00:00:00 Test Item Value Reference Range Interpretation Comments GLUCOSE (test code = 96 MG/DL 7) BUN (test code = 2208) 9 MG/DL CREATININE (test code = 0.45 MG/DL 2214) eGFR AMER. (test (NOTE) ML/MIN/1.73 code = 38364) eGFR NON- AMER. NO CALC ML/MIN/1.73 (test code = 89737) SODIUM (test code = 2231) 142 MEQ/L POTASSIUM (test code = 4.1 MEQ/L 2227) CHLORIDE (test code = 103 MEQ/L 2214) CARBON DIOXIDE (test code 26 MEQ/L = 220) CALCIUM (test code = 8.6 MG/DL 2208) LIPID [id number] 00:00:00 Test Item Value Reference Range Interpretation Comments CHOLESTEROL (test code = 2210) 151 MG/DL TRIGLYCERIDES (test code = 2232) 101 MG/DL HDL CHOLESTEROL (test code = 2220) 52 MG/DL CALC LDL CHOL (test code = 2237) 79 MG/DL RISK RATIO LDL/HDL (test code = 1.52 RATIO 2238) BASIC METABOLIC [id number] 00:00:00 Test Item Value Reference Range Interpretation Comments GLUCOSE (test code = 96 MG/DL 2216) BUN (test code = 2208) 9 MG/DL CREATININE (test code = 0.45 MG/DL 2213) eGFR AMER. (test (NOTE) ML/MIN/1.73 code = 44005) eGFR NON- AMER. NO CALC ML/MIN/1.73 (test code = 39710) SODIUM (test code = 2231) 142 MEQ/L POTASSIUM (test code = 4.1 MEQ/L 8) CHLORIDE (test code = 103 MEQ/L 5) CARBON DIOXIDE (test code 26 MEQ/L = 2206) CALCIUM (test code = 8.6 MG/DL 2208) LIPID [id number] 00:00:00 Test Item Value Reference Range Interpretation Comments CHOLESTEROL (test code = 2210) 151 MG/DL TRIGLYCERIDES (test code = 2232) 101 MG/DL HDL CHOLESTEROL (test code = 2220) 52 MG/DL CALC LDL CHOL (test code = 2237) 79 MG/DL RISK RATIO LDL/HDL (test code = 1.52 RATIO 2238) BASIC METABOLIC [id number] 00:00:00 Test Item Value Reference Range Interpretation Comments GLUCOSE (test code = 96 MG/DL 2216) BUN (test code = 2208) 9 MG/DL CREATININE (test code = 0.45 MG/DL 4) eGFR AMER. (test (NOTE) ML/MIN/1.73 code = 69081) eGFR NON- AMER. NO CALC ML/MIN/1.73 (test code = 80247) SODIUM (test code = 2231) 142 MEQ/L POTASSIUM (test code = 4.1 MEQ/L 2227) CHLORIDE (test code = 103 MEQ/L 2214) CARBON DIOXIDE (test code 26 MEQ/L = 2205) CALCIUM (test code = 8.6 MG/DL 2208) LIPID [id number] 00:00:00 Test Item Value Reference Range Interpretation Comments CHOLESTEROL (test code = 2210) 151 MG/DL TRIGLYCERIDES (test code = 2232) 101 MG/DL HDL CHOLESTEROL (test code = 2220) 52 MG/DL CALC LDL CHOL (test code = 2237) 79 MG/DL RISK RATIO LDL/HDL (test code = 1.52 RATIO 2238) LIPID [id number] 00:00:00 Test Item Value Reference Range Interpretation Comments CHOLESTEROL (test code = 2210) 151 MG/DL TRIGLYCERIDES (test code = 2232) 101 MG/DL HDL CHOLESTEROL (test code = 2220) 52 MG/DL CALC LDL CHOL (test code = 2237) 79 MG/DL RISK RATIO LDL/HDL (test code = 1.52 RATIO 2238) BASIC METABOLIC [id number] 00:00:00 Test Item Value Reference Range Interpretation Comments GLUCOSE (test code = 96 MG/DL 2216) BUN (test code = 2208) 9 MG/DL CREATININE (test code = 0.45 MG/DL 4) eGFR AMER. (test (NOTE) ML/MIN/1.73 code = 34518) eGFR NON- AMER. NO CALC ML/MIN/1.73 (test code = 28179) SODIUM (test code = 2231) 142 MEQ/L POTASSIUM (test code = 4.1 MEQ/L 2228) CHLORIDE (test code = 103 MEQ/L 2215) CARBON DIOXIDE (test code 26 MEQ/L = 2206) CALCIUM (test code = 8.6 MG/DL 2208) BASIC METABOLIC [id number] 00:00:00 Test Item Value Reference Range Interpretation Comments GLUCOSE (test code = 96 MG/DL 2216) BUN (test code = 2208) 9 MG/DL CREATININE (test code = 0.45 MG/DL 2213) eGFR AMER. (test (NOTE) ML/MIN/1.73 code = 87728) eGFR NON- AMER. NO CALC ML/MIN/1.73 (test code = 08187) SODIUM (test code = 2231) 142 MEQ/L POTASSIUM (test code = 4.1 MEQ/L 8) CHLORIDE (test code = 103 MEQ/L 5) CARBON DIOXIDE (test code 26 MEQ/L = 2206) CALCIUM (test code = 8.6 MG/DL 2208) LIPID [id number] 00:00:00 Test Item Value Reference Range Interpretation Comments CHOLESTEROL (test code = 2210) 151 MG/DL TRIGLYCERIDES (test code = 2232) 101 MG/DL HDL CHOLESTEROL (test code = 2220) 52 MG/DL CALC LDL CHOL (test code = 2237) 79 MG/DL RISK RATIO LDL/HDL (test code = 1.52 RATIO 2238) BASIC METABOLIC [id number] 00:00:00 Test Item Value Reference Range Interpretation Comments GLUCOSE (test code = 96 MG/DL 2216) BUN (test code = 2208) 9 MG/DL CREATININE (test code = 0.45 MG/DL 2213) eGFR AMER. (test (NOTE) ML/MIN/1.73 code = 13342) eGFR NON- AMER. NO CALC ML/MIN/1.73 (test code = 39127) SODIUM (test code = 2231) 142 MEQ/L POTASSIUM (test code = 4.1 MEQ/L 2228) CHLORIDE (test code = 103 MEQ/L 2215) CARBON DIOXIDE (test code 26 MEQ/L = 2206) CALCIUM (test code = 8.6 MG/DL 2208) LIPID [id number] 00:00:00 Test Item Value Reference Range Interpretation Comments CHOLESTEROL (test code = 2210) 151 MG/DL TRIGLYCERIDES (test code = 2232) 101 MG/DL HDL CHOLESTEROL (test code = 2220) 52 MG/DL CALC LDL CHOL (test code = 2237) 79 MG/DL RISK RATIO LDL/HDL (test code = 1.52 RATIO 2238) LIPID [id number] 00:00:00 Test Item Value Reference Range Interpretation Comments CHOLESTEROL (test code = 2210) 151 MG/DL TRIGLYCERIDES (test code = 2232) 101 MG/DL HDL CHOLESTEROL (test code = 2220) 52 MG/DL CALC LDL CHOL (test code = 2237) 79 MG/DL RISK RATIO LDL/HDL (test code = 1.52 RATIO 2238) BASIC METABOLIC [id number] 00:00:00 Test Item Value Reference Range Interpretation Comments GLUCOSE (test code = 96 MG/DL 2216) BUN (test code = 2208) 9 MG/DL CREATININE (test code = 0.45 MG/DL 4) eGFR AMER. (test (NOTE) ML/MIN/1.73 code = 36159) eGFR NON- AMER. NO CALC ML/MIN/1.73 (test code = 94656) SODIUM (test code = 2231) 142 MEQ/L POTASSIUM (test code = 4.1 MEQ/L 2228) CHLORIDE (test code = 103 MEQ/L 2215) CARBON DIOXIDE (test code 26 MEQ/L = 2206) CALCIUM (test code = 8.6 MG/DL 2208) BASIC METABOLIC [id number] 00:00:00 Test Item Value Reference Range Interpretation Comments GLUCOSE (test code = 96 MG/DL 2216) BUN (test code = 2208) 9 MG/DL CREATININE (test code = 0.45 MG/DL 4) eGFR AMER. (test (NOTE) ML/MIN/1.73 code = 99484) eGFR NON- AMER. NO CALC ML/MIN/1.73 (test code = 63786) SODIUM (test code = 2231) 142 MEQ/L POTASSIUM (test code = 4.1 MEQ/L 2228) CHLORIDE (test code = 103 MEQ/L 2215) CARBON DIOXIDE (test code 26 MEQ/L = 2206) CALCIUM (test code = 8.6 MG/DL 2208)
[2023-01-29 22:56] LABS: ALT/SGPT 18 U/L (13-56); AST/SGOT 13 U/L (15-37); Albumin 3.7 g/dL (3.4-5.0); Alkaline Phosphatase 64 U/L (45-117); BUN Blood Urea Nitrogen 8 mg/dL (7-18); Bicarbonate 24 mEq/L (21-32); Bilirubin Direct < 0.1 mg/dL (0-0.2); Bilirubin Indirect, Calculated ND mg/dL (0.2-0.8); Bilirubin Total 0.2 mg/dL (0.2-1.0); Glomerular Filtration Rate 116 ml/min (=/>90); Glucose Level 105 mg/dL (74-106); Potassium 3.4 mEq/L (3.5-5.1); Protein, Total 7.5 g/dL (6.4-8.2); Sodium Level 141 mEq/L (136-145)
[2023-01-29 23:14] LABS: Barbiturates NEGATIVE (NEGATIVE); Benzodiazepines NEGATIVE (NEGATIVE); Cocaine NEGATIVE (NEGATIVE); METHAMPHETAM NEGATIVE (NEGATIVE); Methadone NEGATIVE (NEGATIVE); Opiates NEGATIVE (NEGATIVE); Phencyclidine NEGATIVE (NEGATIVE); THC Cannibis POSITIVE (NEGATIVE)
[2023-01-29 23:45] LABS: Specific Gravity 1.037 (1.005-1.030)
[2023-01-29 23:47] LABS: Specific Gravity > 1.030 (1.005-1.030); Urine Bacteria <20 /HPF (<20); Urine Bilirubin NEGATIVE (Negative); Urine Blood Negative (Negative); Urine Clarity Extremely Turbid (Clear); Urine Color Yellow (Yellow); Urine Glucose NEGATIVE (Negative); Urine Mucus 4+ /HPF (None Seen); Urine Protein 1+ (Negative); Urine RBC None Seen /HPF (None Seen); Urine Urobilinogen 1+ (Normal)
--- NOTE | 2023-01-30 01:30 | ER ---
Nurse's Notes [facility] Name: Altagracia Yu Age: 17 yrs Sex: Female : 2005 Arrival Date: 01/29/2023 Time: 22:06 Bed 18 Private MD: Diagnosis: Suicidal ideations Presentation: 01/29 22:26 Chief complaint: Patient states: "I want to end it." while asking a neighbor for a rv knife. pt had previous suicidal attempts. Coronavirus screen: Vaccine status: Patient reports being unvaccinated. Patient reports having had a previously documented Covid positive illness. Ebola Screen: Patient negative for fever greater than or equal to 101.5 degrees Fahrenheit, and additional compatible Ebola Virus Disease symptoms Patient denies exposure to infectious person. Patient denies travel to an Ebola-affected area in the 21 days before illness onset. Initial Sepsis Screen: Does the patient meet any 2 criteria? No. Patient's initial sepsis screen is negative. Does the patient have a suspected source of infection? No. Patient's initial sepsis screen is negative. Risk Assessment: Do you want to hurt yourself or someone else? Patient reports desire/thoughts of hurting themselves or someone else. Provider notified. Onset of symptoms was January 29, 2023. 22:26 Method Of Arrival: EMS: [facility] 22:26 Acuity: KARMEN 2 rv Triage Assessment: 22:28 General: Appears uncomfortable, Behavior is calm, cooperative. Pain: Denies pain. EENT: rv No signs and/or symptoms were reported regarding the EENT system. Neuro: Level of Consciousness is awake, alert, obeys commands, Oriented to person, place, time, situation. Cardiovascular: Capillary refill < 3 seconds. Respiratory: Airway is patent Respiratory effort is even, unlabored, Breath sounds are clear bilaterally. GI: No signs and/or symptoms were reported involving the gastrointestinal system. Derm: Skin is intact. Historical: - Allergies: 22:28 Aspirin; rv 22:28 PENICILLINS; rv - PMHx: 22:28 adhd; adhd; Anxiety; rv - Immunization history:: Adult Immunizations not up to date. - Social history:: Smoking status: Patient reports the use of cigarette tobacco products, smokes one pack cigarettes per day. Patient uses alcohol, occasionally. street drugs, marijuana. - Family history:: not pertinent. Screenin:29 [facility] ED Fall Risk Assessment (Adult) History of falling in the last 3 months, rv including since admission No falls in past 3 months (0 pts) Confusion or Disorientation No (0 pts) Intoxicated or Sedated No (0 pts) Impaired Gait No (0 pts) Mobility Assist Device Used No (0 pt) Altered Elimination No (0 pt) Score/Fall Risk Level 0 - 2 = Low Risk. Abuse screen: Denies threats or abuse. Denies injuries from another. Nutritional screening: No deficits noted. Tuberculosis screening: No symptoms or risk factors identified. Assessment: 01/30 00:34 Visitor restriction implemented due to in-person visitations may lead to the rv transmission of an infectious agent. Restricted visitation is valid for not more than 5 days unless renewed by the attending provider. Visitor restrictions were implemented on: January 30, 2023. Reassessment: Patient appears in no apparent distress at this time. Patient denies pain at this time. General: Behavior is calm, cooperative. Pain: Denies pain. 01:40 Reassessment: Patient appears in no apparent distress at this time. psych evaluation rv done via video call, recommendation: in patient. 04:00 Reassessment: Patient appears in no apparent distress at this time. rv 04:00 Cardiovascular: No deficits noted. Respiratory: Airway is patent Respiratory effort is rv even, unlabored. Psych: 01/29 22:30 [place] Suicide Severity Screening: In the past month, have you wished you were rv or wished you could go to sleep and not wake up? Patient responds "yes." Based off the client's responses additional C-SSRS screening is required. "In the past month, have you actually had any thoughts of killing yourself?" Patient responds "yes." Based off the client's response additional [place] suicide severity screening questions to be further documented on paper forms. "In your lifetime, have you ever done anything, started to do anything, or prepared to do anything to end your life?" Patient responds "yes." Patient reports suicidal intent within 3 past months. Subjective: Patient's mood is sad, Delusions are denied, Hallucinations are denied Having thoughts of suicide. Plan for suicide is using knife to cut throat. Objective: Patient is cooperative, Speech is normal, Affect is blunted. Interventions: Removed personal items and placed in bag. Patient placed in hospital gown. Searched person for dangerous items. Belonging list filled out. Restraints: Patient placed in soft restraints as ordered by physician. Patient's physical safety, cardiac and respiratory status will continue to be monitored while in restraints. Safety Checks: Personal items have been removed. Door is open. Patient uses 6 pack of beer, weekly. Last use was 1 weeks ago. Patient uses marijuana Last use was 6 hours ago. Commitment: Patient will be a voluntary commitment. Vital Signs: 22:26 BP 103 / 81; Pulse 67; Resp 16; Temp 98.2; Pulse Ox 100% ; Weight 105.23 kg; Height 5 rv ft. 3 in. ; Pain 0/10; 01/30 05:59 BP 101 / 84; Pulse 86; Resp 18; Temp 98; Pulse Ox 100% on R/A; rv 01/29 22:26 Body Mass Index 41.10 (105.23 kg, 160.02 cm) rv 01/29 22:26 Pain Scale: Adult rv Reid Coma Score: 00:34 Eye Response: spontaneous(4). Motor Response: obeys commands(6). Verbal Response: rv oriented(5). Total: 15. ED Course: 01/29 22:07 Patient arrived in ED. ja2 22:07 Neil Sagastume MD is Attending Physician. rt 22:17 Junior Smalls, KATELYN is Primary Nurse. rv 22:28 Triage completed. rv 22:29 Arm band placed on right wrist. rv 22:29 Patient has correct armband on for positive identification. Placed in gown. Bed in low rv position. Call light in reach. Cardiac monitoring not applicable on this patient. Patient is placed in psych hold. 22:29 No provider procedures requiring assistance completed. Inserted saline lock: 22 gauge rv in right antecubital area, using aseptic technique. Blood collected. 22:33 Hepatic Function Sent. rv 22:33 ETOH Level Sent. rv 22:33 CBC with Diff Sent. rv 22:33 Basic Metabolic Panel Sent. rv 22:33 Acetaminophen Sent. rv 22:34 Salicylate Sent. ds4 23:22 Urinalysis w/ reflexes Sent. ds4 23:22 Test, Urine Sent. ds4 01/30 00:28 Contacted [facility] for Initial report. ah1 00:34 Appears to be sleeping. Awaiting: psych evaluation. Safety Checks: The door is open or rv patient has been placed in a hallway bed/chair. Sitter present at this time. 00:50 Faxed over face sheet and labs to [facility] Medical records. [facility] 02:35 Faxed over Face sheet and labs to [facility] transfer facilities. [facility] 04:00 Safety Checks: The door is open or patient has been placed in a hallway bed/chair. rv Sitter present at this time. 04:00 Resting quietly. Appears to be sleeping. transfer. rv 04:00 Resting quietly. Appears to be sleeping. Safety Checks: The door is open or patient has rv been placed in a hallway bed/chair. Sitter present at this time. 05:22 Physician and Facility approval from [facility], by Dr. Frida Harding and [facility] Liana Joe. 05:30 Contacted [facility]. Stated that they were bringing a pt in, so they'll take the [facility] report when they get here. 05:58 IV discontinued, intact, bleeding controlled, No redness/swelling at site. Pressure rv dressing applied. Administered Medications: No medications were administered Medication: 01/29 23:14 VIS not applicable for this client. rv Outcome: 01/30 01:29 ER care complete, transfer ordered by . rt 05:58 Transferred by ground EMS Note: [facility] 05:58 Condition: stable 05:58 Instructed on the need for transfer. 06:25 Patient left the ED. rv Signatures: Elton Mcelroy ds4 Junior Smalls RN RN rv Jody Solorio Ryan, MD MD rt Roni Fontanez [facility]
--- NOTE | 2023-01-30 01:30 | EDPHYS ---
Physician Documentation [facility] Name: Altagracia Yu Age: 17 yrs Sex: Female : 2005 Arrival Date: 01/29/2023 Time: 22:06 Bed 18 Private MD: ED Physician Neil Sagastume HPI: 01/30 00:43 This 17 yrs old Female presents to ER via EMS with complaints of Psych Problem. rt 00:43 Patient presents to the ED with suicidal ideation with plan, she said that she was to rt cut herself and asked for a knife but person within the house did not give back to her. She also reported a brief episode of homicidal ideation regarding another person. She denied any hallucinations. Denies physical complaints at this time. Symptoms are moderate in severity, no other aggravating alleviating factors.. Historical: - Allergies: 01/29 22:28 Aspirin; rv 22:28 PENICILLINS; rv - PMHx: 22:28 adhd; adhd; Anxiety; rv - Immunization history:: Adult Immunizations not up to date. - Social history:: Smoking status: Patient reports the use of cigarette tobacco products, smokes one pack cigarettes per day. Patient uses alcohol, occasionally. street drugs, marijuana. - Family history:: not pertinent. ROS: 01/30 00:43 Constitutional: Negative for fever, chills, and weight loss, Cardiovascular: Negative rt for chest pain, palpitations, and edema, Respiratory: Negative for shortness of breath, cough, wheezing, and pleuritic chest pain, Abdomen/GI: Negative for abdominal pain, nausea, vomiting, diarrhea, and constipation, Skin: Negative for injury, rash, and discoloration, Neuro: Negative for headache, weakness, numbness, tingling, and seizure. Psych: Positive for homicidal ideation, suicidal ideation. Exam: 00:43 Constitutional: This is a well developed, well nourished patient who is awake, alert, rt and in no acute distress. Head/Face: Normocephalic, atraumatic. Chest/axilla: Normal chest wall appearance and motion. Nontender with no deformity. No lesions are appreciated. Cardiovascular: Regular rate and rhythm with a normal S1 and S2. No gallops, murmurs, or rubs. Normal PMI, no JVD. No pulse deficits. Respiratory: Lungs have equal breath sounds bilaterally, clear to auscultation and percussion. No rales, rhonchi or wheezes noted. No increased work of breathing, no retractions or nasal flaring. Abdomen/GI: Soft, non-tender, with normal bowel sounds. No distension or tympany. No guarding or rebound. No evidence of tenderness throughout. 00:43 Psych: Positive for SI, HI. Vital Signs: 01/29 22:26 BP 103 / 81; Pulse 67; Resp 16; Temp 98.2; Pulse Ox 100% ; Weight 105.23 kg; Height 5 rv ft. 3 in. ; Pain 0/10; 01/30 05:59 BP 101 / 84; Pulse 86; Resp 18; Temp 98; Pulse Ox 100% on R/A; rv 01/29 22:26 Body Mass Index 41.10 (105.23 kg, 160.02 cm) rv 01/29 22:26 Pain Scale: Adult rv Davis Coma Score: 00:34 Eye Response: spontaneous(4). Motor Response: obeys commands(6). Verbal Response: rv oriented(5). Total: 15. MDM: 01/29 22:08 Patient medically screened. rt 01/29 22:13 Order name: Acetaminophen; Complete Time: 23:50 rt 01/29 22:13 Order name: Basic Metabolic Panel; Complete Time: 23:50 rt 01/29 22:13 Order name: CBC with Diff; Complete Time: 23:50 rt 01/29 22:13 Order name: ETOH Level; Complete Time: 23:50 rt 01/29 22:13 Order name: Hepatic Function; Complete Time: 23:50 rt 01/29 22:13 Order name: Test, Urine; Complete Time: 23:50 rt 01/29 22:13 Order name: Salicylate; Complete Time: 23:50 rt 01/29 22:13 Order name: Urinalysis w/ reflexes; Complete Time: 23:50 rt 01/29 22:13 Order name: Urine Drug Screen; Complete Time: 23:50 rt 01/29 22:13 Order name: Labs collected and sent; Complete Time: 22:31 rt 01/29 22:13 Order name: Suicide Precautions; Complete Time: 22:31 rt 01/29 22:13 Order name: Suicide Screening ([place]); Complete Time: 22:33 rt Administered Medications: No medications were administered Disposition Summary: 01/30/23 01:29 Transfer Ordered Transfer Location: [facility] Facility rt Reason: Higher level of care rt Condition: Fair rt Problem: new rt Symptoms: are unchanged rt Accepting Physician: (01/30/23 06:25) billy Diagnosis - Suicidal ideations rt Forms: - Medication Reconciliation Form rt - SBAR form rt Signatures: Dispatcher [employer] Junior Quijano RN RN rv Neil Sagastume MD MD rt Corrections: (The following items were deleted from the chart) 01/30 06:25 01:29 rt rv
[2023-01-30 06:47] VITALS: O2SAT 100
[2023-01-30 06:48] VITALS: BP 101/84; TEMP 98
== END 2023-01-30 06:25 ==
LOC: ER 22:06
DX: R45.851 Suicidal ideations (principal); F17.210 Nicotine dependence, cigarettes, uncomplicated; Z88.0 Allergy status to penicillin; Z88.6 Allergy status to analgesic agent
CPT/HCPCS: 36415; 80048; 80076; 80143; 80179; 80307; 81001; 81025; 82077; 85025; 99285

== ENCOUNTER 2023-12-08 13:41 | Emergency (ER) | payer SELFPAY ==
--- OUTSIDE RECORDS SUMMARY | 2023-12-08 13:47 | XMS REPORT | Continuity of Care Document ---
Author Name Unknown Address [address] [facility] [address] [place] [address] [facility] Address [address] [facility] [address] [place] [address] Care Team Providers Care Nurse Clinical Name Role Phone LATOYA MOJICA Primary Care Physician Guerrero Brynat MD Attending Clinician Doctor Unassigned, [place] Attending Clinician U Arlene Beckman Attending Clinician UnavailHeaven Holm Attending Clinician [phone] Yenni Cervantes Attending Clinician Unavailable Hannah Sanchez Attending Clinician Yina Kimble Attending Clinician Unavailable Adali Mcpherson Attending Clinician [id number] Responsible Provider, Not Yet Assigned Attending Clinician Unavailable Yenni Gross Attending Clinician Unavailable Siding Applicator, [facility] Student Attending Clinic Shayy Lopez Attending Clinician Unavaila ble Colette Chowdary Attending Clinician [phone] Tram Landaverde Attending Clinician Unavailable Polina Dobson Attending Clinician Unavailable JANNA BONILLA Attending Clinician Unavailable Janna Bonilla PA-C Attending Clinician GUILLERMINA GILL Attending Clinician Unavailable 1, [facility] Attending Clinician Unavailable GUERRERO WHITAKER Attending Clinician Unavailable Heaven Morrow Unavailable [phone] Adali Mcpherson Unavailable [phone] Colette Chowdary Unavailable [phone] Yenni Cervantes Unavailable Unavailable Payers Payer Name Policy Type Policy Number Effective Date Expirati on Date Source Problems Condition Name Condition Details Condition Category Status Onset Date Resolution Date Last Treatment Date Treating Clinician Comments Source Greater Than or Equal to 95th Percentile For Age Condition Active 10-14 00:00: 00 2019-10-15 09:09:50 [facility] , third [facility] Condition Active 10-11 00:00: 00 2019-10-11 11:20:23 [facility] other high risk pregnancie s, third trimester Condition Active 10-07 00:00: 00 2019-10-07 17:42:03 Colette Chowdary [facility] Health Supervisio n of high risk due to social problems, third trimester Condition Active 10-07 00:00: 00 2019-10-07 17:42:03 Colette Chowdary [facility] Round ligament pain Round ligament pain Disease Active 09-17 00:00: 00 [facility] 32 weeks gestation of 32 weeks gestation of Disease Active 2018-08 00:00: 00 [facility] 28 weeks gestation of 28 weeks gestation of Disease Active 2018-08 00:00: 00 [facility] Supervisio n of high risk in third trimester Supervisio n of high risk in third trimester Disease Active 2018-08 00:00: 00 [facility] Uterine size-date discrepanc y in third trimester Uterine size-date discrepanc y in third trimester Disease Active 2018-08 00:00: 00 [facility] Need for Tdap vaccinatio n Need for Tdap vaccinatio n Disease Active 2018-08 00:00: 00 [facility] History of Past Illness Condition Name Condition Details Condition Category Status Onset Date Resolution Date Last Treatment Date Treating Clinician Comments Source 36 Weeks Gestation of Condition Inactiv e 10-14 00:00: 00 2019-10-21 00:00:00 2019-10-15 09:09:50 [facility] 35 Weeks Gestation of Condition Inactiv e 10-07 00:00: 00 2019-10-14 00:00:00 2019-10-07 17:42:03 Germán Manning Colette Call [facility] Allergies, Adverse Reactions, Alerts Allergy Name Allergy Type Status Severity Reaction(s) Onset Date Inactive Date Treating Clinician Comments Source Penicill ins - CLASS Propensi ty to adverse reaction to drug Active 7-19 00:00: 00 Penicill ins Propensi ty to adverse reaction to drug Active 3-21 00:00: 00 [facility] Active ITCHING 03-17 00:00: 00 [facility] Aspirin Propensi ty to adverse reaction s Active Swelling 03-17 00:00: 00 [facility] Social History Social Habit Start Date Stop Date Quantity Comments Source ASSERTION 2019-02-12 00:00:00 [facility] Sex Assigned At [facility] History SDOH Alcohol Std Drinks [facility] History SDOH Alcohol Binge [facility] Have you traveled to any zika virus infected areas? 2019-10-14 13:44:33 2019-10-14 13:44:33 No Medify social history E&M 2019-10-07 14:07:37 2019-10-07 14:07:37 not currently with familyliving with fob's familystates her own parents not involved with this . [facility] cat exposure during 2019-10-07 14:07:37 2019-10-07 14:07:37 no [facility] Alcohol intake 2019-09-17 00:00:00 2019-09-17 00:00:00 [facility] History SDOH Alcohol Frequency 2019-03-17 00:00:00 2019-03-17 00:00:00 1 [facility] History of tobacco use 2019-03-07 00:00:00 Chews Tobacco [facility] Smoking Status Start Date Stop Date Source Never smoker [facility] Medications Ordered Medication Name Filled Medication Name Start Date Stop Date Current Medication? Ordering Clinician Indication Dosage Frequency Signature (SIG) Comments Components Source Dose Unknown 2021-0 918 00:00: 00 No TAKE 1 TABLET BY MOUTH EVERY DAY 2021-0 9-18 00:00: 00 No TAKE 1 TABLET BY MOUTH EVERY DAY 2021-0 818 00:00: 00 No 10 TAKE 1 TABLET BY MOUTH EVERY DAY 2021-0 818 00:00: 00 No 10 Dose Unknown 2021-0 8-12 00:00: 00 No 375 Dose Unknown 2021-0 8-12 00:00: 00 No 375 Dose Unknown 2021-0 8-12 00:00: 00 No 375 TAKE 1 CAPSULE BY MOUTH 3 TIMES A DAY NEEDED 2021-0 8-10 00:00: 00 No 25 TAKE 1 CAPSULE BY MOUTH 3 TIMES A DAY NEEDED 2021-0 8-10 00:00: 00 No 25 TAKE 1 CAPSULE BY MOUTH 3 TIMES A DAY NEEDED 2021-0 8-10 00:00: 00 No 25 Dose Unknown 2021-0 8-08 00:00: 00 No 500 Dose Unknown 2021-0 8-08 00:00: 00 No 300 Dose Unknown 2021-0 8-08 00:00: 00 No 500 Dose Unknown 2021-0 8-08 00:00: 00 No 300 Dose Unknown 2021-0 8-08 00:00: 00 No 500 Dose Unknown 2021-0 808 00:00: 00 No 300 TAKE 1 TABLET DAILY. 2021-0 8-06 00:00: 00 No 10 Dose Unknown 2021-0 8-06 00:00: 00 No 375 TAKE 1 TABLET BY MOUTH EVERY 6 HOURS NEEDED FOR PAIN 2021-0 8-06 00:00: 00 No TAKE 1 TABLET DAILY. 2021-0 8-06 00:00: 00 No 10 Dose Unknown 2021-0 8-06 00:00: 00 No 375 TAKE 1 TABLET BY MOUTH EVERY 6 HOURS NEEDED FOR PAIN 2022-0 8-06 00:00: 00 No TAKE 1 TABLET DAILY. 2022-0 8-06 00:00: 00 No 10 Dose Unknown 2022-0 8-06 00:00: 00 No 375 TAKE 1 TABLET BY MOUTH EVERY 6 HOURS NEEDED FOR PAIN 2022-0 8-06 00:00: 00 No TAKE 1 TABLET DAILY. 2022-0 8-06 00:00: 00 No 10 Dose Unknown 2022-0 8-06 00:00: 00 No 375 TAKE 1 TABLET BY MOUTH EVERY 6 HOURS NEEDED FOR PAIN 2022-0 8-06 00:00: 00 No Dose Unknown 2022-0 8-05 00:00: 00 No 375 TAKE 1 CAPSULE BY MOUTH 3 TIMES A DAY NEEDED 2022-0 8-05 00:00: 00 No 25 Dose Unknown 2022-0 8-05 00:00: 00 No 375 TAKE 1 CAPSULE BY MOUTH 3 TIMES A DAY NEEDED 2022-0 8-05 00:00: 00 No 25 Dose Unknown 2022-0 8-05 00:00: 00 No 375 TAKE 1 CAPSULE BY MOUTH 3 TIMES A DAY NEEDED 2022-0 8-05 00:00: 00 No 25 Dose Unknown 2022-0 8-05 00:00: 00 No 375 TAKE 1 CAPSULE BY MOUTH 3 TIMES A DAY NEEDED 2022-0 8-05 00:00: 00 No 25 Dose Unknown 2022-0 8-04 00:00: 00 No &lt 2022-0 8-04 00:00: 00 No 500 &lt 2022-0 8-04 00:00: 00 No 68 Dose Unknown 2022-0 8-04 00:00: 00 No &lt 2022-0 8-04 00:00: 00 No 500 &lt 2022-0 8-04 00:00: 00 No 68 Dose Unknown 2022-0 8-04 00:00: 00 No &lt 2022-0 8-04 00:00: 00 No 500 &lt 2022-0 8-04 00:00: 00 No 68 Dose Unknown 2022-0 8-04 00:00: 00 No &lt 2022-0 8-04 00:00: 00 No 500 &lt 2022-0 8-04 00:00: 00 No 68 TAKE 1 CAPSULE BY MOUTH EVERY 6 HOURS FOR 10 DAYS 2022-0 8-03 00:00: 00 No 300 &lt 2022-0 8-03 00:00: 00 No 500 TAKE 1 TABLET BY MOUTH EVERY 6 HOURS NEEDED FOR PAIN 2022-0 8-03 00:00: 00 No &lt 2022-0 8-03 00:00: 00 No 100 Dose Unknown 2022-0 8-03 00:00: 00 No 375 TAKE 1 CAPSULE BY MOUTH EVERY 6 HOURS FOR 10 DAYS 2022-0 8-03 00:00: 00 No 300 &lt 2022-0 8-03 00:00: 00 No 500 TAKE 1 TABLET BY MOUTH EVERY 6 HOURS NEEDED FOR PAIN 2022-0 8-03 00:00: 00 No &lt 2022-0 8-03 00:00: 00 No 100 Dose Unknown 2022-0 8-03 00:00: 00 No 375 TAKE 1 CAPSULE BY MOUTH EVERY 6 HOURS FOR 10 DAYS 2022-0 8-03 00:00: 00 No 300 &lt 2022-0 8-03 00:00: 00 No 500 TAKE 1 TABLET BY MOUTH EVERY 6 HOURS NEEDED FOR PAIN 2022-0 8-03 00:00: 00 No &lt 2022-0 8-03 00:00: 00 No 100 Dose Unknown 2022-0 8-03 00:00: 00 No 375 TAKE 1 CAPSULE BY MOUTH EVERY 6 HOURS FOR 10 DAYS 2022-0 8-03 00:00: 00 No 300 &lt 2022-0 8-03 00:00: 00 No 500 TAKE 1 TABLET BY MOUTH EVERY 6 HOURS NEEDED FOR PAIN 2022-0 8-03 00:00: 00 No &lt 2022-0 8-03 00:00: 00 No 100 Dose Unknown 2022-0 8-03 00:00: 00 No 375 TAKE 1 CAPSULE BY MOUTH EVERY 6 HOURS FOR 10 DAYS 2022-0 7-25 00:00: 00 No 300 &lt 2022-0 7-25 00:00: 00 No 500 TAKE 1 CAPSULE BY MOUTH EVERY 6 HOURS FOR 10 DAYS 2022-0 7-25 00:00: 00 No 300 &lt 2022-0 7-25 00:00: 00 No 500 TAKE 1 CAPSULE BY MOUTH EVERY 6 HOURS FOR 10 DAYS 2022-0 7-25 00:00: 00 No 300 &lt 2022-0 7-25 00:00: 00 No 500 TAKE 1 CAPSULE BY MOUTH EVERY 6 HOURS FOR 10 DAYS 2022-0 7-25 00:00: 00 No 300 &lt 2022-0 7-25 00:00: 00 No 500 TAKE 1 TABLET BY MOUTH EVERY 6 HOURS NEEDED FOR PAIN 2022-0 7-21 00:00: 00 No TAKE 1 TABLET BY MOUTH EVERY 6 HOURS NEEDED FOR PAIN 2-0 7-21 00:00: 00 No TAKE 1 TABLET BY MOUTH EVERY 6 HOURS NEEDED FOR PAIN 2-0 -21 00:00: 00 No TAKE 1 TABLET BY MOUTH EVERY 6 HOURS NEEDED FOR PAIN 2022-0 7-21 00:00: 00 No citalopram 10 mg tablet 2-0 7-20 00:00: 00 No 1mg Dose Unknown 2022-0 20 00:00: 00 No 375 &lt 2022-0 7-20 00:00: 00 No 500 TAKE 1 CAPSULE BY MOUTH EVERY 6 HOURS FOR 10 DAYS 2022-0 7-20 00:00: 00 No 300 citalopram 10 mg tablet 2-0 -20 00:00: 00 No 1mg Dose Unknown 2022-0 -20 00:00: 00 No 375 &lt 2022-0 7-20 00:00: 00 No 500 TAKE 1 CAPSULE BY MOUTH EVERY 6 HOURS FOR 10 DAYS 2022-0 7-20 00:00: 00 No 300 citalopram 10 mg tablet 2-0 720 00:00: 00 No 1mg Dose Unknown 2022-0 -20 00:00: 00 No 375 &lt 2022-0 7-20 00:00: 00 No 500 TAKE 1 CAPSULE BY MOUTH EVERY 6 HOURS FOR 10 DAYS 2022-0 7-20 00:00: 00 No 300 citalopram 10 mg tablet 2-0 7-20 00:00: 00 No 1mg Dose Unknown 2022-0 -20 00:00: 00 No 375 &lt 2022-0 7-20 00:00: 00 No 500 TAKE 1 CAPSULE BY MOUTH EVERY 6 HOURS FOR 10 DAYS 2022-0 720 00:00: 00 No 300 citalopram 10 mg tablet 2022-0 7- 00:00: 00 No 1mg citalopram 10 mg tablet 2-0 -19 00:00: 00 No 1mg citalopram 10 mg tablet 2022-0 7-19 00:00: 00 No 1mg citalopram 10 mg tablet 2-0 7-19 00:00: 00 No 1mg TAKE 1 CAPSULE BY MOUTH EVERY DAY 2022-0 7-15 00:00: 00 No 375 &lt 2022-0 7-15 00:00: 00 No TAKE 1 CAPSULE BY MOUTH EVERY 6 HOURS FOR 10 DAYS 2022-0 7-15 00:00: 00 No 300 TAKE 1 CAPSULE BY MOUTH EVERY DAY 2022-0 7-15 00:00: 00 No 375 &lt 2022-0 7-15 00:00: 00 No TAKE 1 CAPSULE BY MOUTH EVERY 6 HOURS FOR 10 DAYS 2022-0 7-15 00:00: 00 No 300 TAKE 1 CAPSULE BY MOUTH EVERY DAY 2-0 7-15 00:00: 00 No 375 &lt 2022-0 7-15 00:00: 00 No TAKE 1 CAPSULE BY MOUTH EVERY 6 HOURS FOR 10 DAYS 2-0 7-15 00:00: 00 No 300 TAKE 1 CAPSULE BY MOUTH EVERY DAY 2-0 7-15 00:00: 00 No 375 &lt 2022-0 7-15 00:00: 00 No TAKE 1 CAPSULE BY MOUTH EVERY 6 HOURS FOR 10 DAYS 2-0 7-15 00:00: 00 No 300 &lt 2022-0 7-12 00:00: 00 No 100 &lt 2022-0 7- 00:00: 00 No 100 &lt 2022-0 7-12 00:00: 00 No 100 &lt 2022-0 7-12 00:00: 00 No 100 TAKE 1 CAPSULE BY MOUTH 3 TIMES A DAY NEEDED 2022-0 7- 00:00: 00 No 25 &lt 2022-0 7- 00:00: 00 No 500 Dose Unknown 2022-0 7- 00:00: 00 No 375 TAKE 1 CAPSULE BY MOUTH 3 TIMES A DAY NEEDED 2022-0 7- 00:00: 00 No 25 &lt 2022-0 7- 00:00: 00 No 500 Dose Unknown 2022-0 7- 00:00: 00 No 375 TAKE 1 CAPSULE BY MOUTH 3 TIMES A DAY NEEDED 2-0 7- 00:00: 00 No 25 &lt 2022-0 7-11 00:00: 00 No 500 Dose Unknown 2022-0 7-11 00:00: 00 No 375 TAKE 1 CAPSULE BY MOUTH 3 TIMES A DAY NEEDED 2022-0 7-11 00:00: 00 No 25 &lt 2022-0 7-11 00:00: 00 No 500 Dose Unknown 2022-0 7-11 00:00: 00 No 375 Dose Unknown 2022-0 6-16 00:00: 00 No Dose Unknown 2022-0 6-16 00:00: 00 No Dose Unknown 2022-0 6-16 00:00: 00 No Dose Unknown 2022-0 6-16 00:00: 00 No Nexplanon 68 mg subdermal implant 2022-0 6-14 00:00: 00 No 1mg &lt 2022-0 6-14 00:00: 00 No &lt 2022-0 6-14 00:00: 00 No TAKE 1 TABLET BY MOUTH EVERY 6 HOURS NEEDED FOR PAIN 2022-0 6-14 00:00: 00 No Nexplanon 68 mg subdermal implant 2022-0 6-14 00:00: 00 No 1mg &lt 2022-0 6-14 00:00: 00 No &lt 2022-0 6-14 00:00: 00 No TAKE 1 TABLET BY MOUTH EVERY 6 HOURS NEEDED FOR PAIN 2022-0 6-14 00:00: 00 No Nexplanon 68 mg subdermal implant 2022-0 6-14 00:00: 00 No 1mg &lt 2022-0 6-14 00:00: 00 No &lt 2022-0 6-14 00:00: 00 No TAKE 1 TABLET BY MOUTH EVERY 6 HOURS NEEDED FOR PAIN 2022-0 6-14 00:00: 00 No Nexplanon 68 mg subdermal implant 2022-0 6-14 00:00: 00 No 1mg &lt 2022-0 6-14 00:00: 00 No &lt 2022-0 6-14 00:00: 00 No TAKE 1 TABLET BY MOUTH EVERY 6 HOURS NEEDED FOR PAIN 2022-0 6-14 00:00: 00 No &lt 2022-0 6-07 00:00: 00 No TAKE 1 CAPSULE BY MOUTH 3 TIMES A DAY NEEDED 2022-0 6-07 00:00: 00 No &lt 2022-0 6-07 00:00: 00 No TAKE 1 CAPSULE BY MOUTH EVERY 6 HOURS FOR 10 DAYS 2022-0 6-07 00:00: 00 No &lt 2022-0 6-07 00:00: 00 No TAKE 1 CAPSULE BY MOUTH 3 TIMES A DAY NEEDED 2022-0 6-07 00:00: 00 No &lt 2022-0 6-07 00:00: 00 No TAKE 1 CAPSULE BY MOUTH EVERY 6 HOURS FOR 10 DAYS 2022-0 6-07 00:00: 00 No &lt 2022-0 6-07 00:00: 00 No &lt 2022-0 6-07 00:00: 00 No TAKE 1 CAPSULE BY MOUTH 3 TIMES A DAY NEEDED 2022-0 6-07 00:00: 00 No &lt 2022-0 6-07 00:00: 00 No TAKE 1 CAPSULE BY MOUTH EVERY 6 HOURS FOR 10 DAYS 2022-0 6-07 00:00: 00 No &lt 2022-0 6-07 00:00: 00 No TAKE 1 CAPSULE BY MOUTH 3 TIMES A DAY NEEDED 2022-0 6-07 00:00: 00 No &lt 2022-0 6-07 00:00: 00 No TAKE 1 CAPSULE BY MOUTH EVERY 6 HOURS FOR 10 DAYS 2022-0 6-07 00:00: 00 No &lt 2022-0 6-04 00:00: 00 No &lt 2022-0 6-04 00:00: 00 No &lt 2022-0 6-04 00:00: 00 No &lt 2022-0 6-04 00:00: 00 No &lt 2022-0 6-04 00:00: 00 No Dose Unknown 2022-0 3-22 00:00: 00 No Dose Unknown 2022-0 3-22 00:00: 00 No Dose Unknown 2022-0 3-22 00:00: 00 No Dose Unknown 2022-0 3-22 00:00: 00 No Dose Unknown 2022-0 3-22 00:00: 00 No doxycycline hyclate 100 mg tablet 2022-0 3-21 00:00: 00 No 1mg doxycycline hyclate 100 mg tablet 2022-0 3-21 00:00: 00 No 1mg doxycycline hyclate 100 mg tablet 2022-0 3-21 00:00: 00 No 1mg doxycycline hyclate 100 mg tablet 2022-0 3-21 00:00: 00 No 1mg doxycycline hyclate 100 mg tablet 2022-0 3-21 00:00: 00 No 1mg Dose Unknown 2022-0 3-15 00:00: 00 No Dose Unknown 2022-0 3-15 00:00: 00 No Dose Unknown 2022-0 3-15 00:00: 00 No Dose Unknown 2022-0 3-15 00:00: 00 No Dose Unknown 2022-0 3-15 00:00: 00 No Dose Unknown 2022-0 3-14 00:00: 00 No Dose Unknown 2022-0 3-14 00:00: 00 No Dose Unknown 2022-0 3-14 00:00: 00 No Dose Unknown 2022-0 3-14 00:00: 00 No Dose Unknown 2022-0 3-14 00:00: 00 No cephalexin 500 mg tablet 2-0 2-23 00:00: 00 No 1mg cephalexin 500 mg tablet 2-0 2-23 00:00: 00 No 1mg cephalexin 500 mg tablet 2-0 2-23 00:00: 00 No 1mg cephalexin 500 mg tablet 2-0 2-23 00:00: 00 No 1mg cephalexin 500 mg tablet 2-0 2-23 00:00: 00 No 1mg doxycycline monohydrate 100 mg capsule 2020-1 1-22 00:00: 00 No 1mg doxycycline monohydrate 100 mg capsule 2020-1 1-22 00:00: 00 No 1mg doxycycline monohydrate 100 mg capsule 2020-1 1-22 00:00: 00 No 1mg doxycycline monohydrate 100 mg capsule 2020-1 1-22 00:00: 00 No 1mg doxycycline monohydrate 100 mg capsule 2020-1 -22 00:00: 00 No 1mg medroxyprog esterone 150 mg/mL intramuscul ar syringe 1-0 03-13 00:00: 00 No 1mg/mL medroxyprog esterone 150 mg/mL intramuscul ar syringe 1-0 03-13 00:00: 00 No 1mg/mL medroxyprog esterone 150 mg/mL intramuscul ar syringe 1-0 03-13 00:00: 00 No 1mg/mL medroxyprog esterone 150 mg/mL intramuscul ar syringe 03-13 00:00: 00 No 1mg/mL medroxyprog esterone 150 mg/mL intramuscul ar syringe 03-13 00:00: 00 No 1mg/mL Wellbutrin XL 150 mg 24 hr tablet, extended release 2019-08 00:00: 00 No 1mg Wellbutrin XL 150 mg 24 hr tablet, extended release 2019-08 00:00: 00 No 1mg Wellbutrin XL 300 mg 24 hr tablet, extended release 2019-08 00:00: 00 No 1mg olanzapine 5 mg tablet 2019-08 00:00: 00 No 1mg clonidine HCl 0.3 mg tablet 2019-08 00:00: 00 No 1mg gabapentin 300 mg capsule 2019-08 00:00: 00 No 1mg Wellbutrin XL 300 mg 24 hr tablet, extended release 2019-08 00:00: 00 No 1mg olanzapine 5 mg tablet 2019-08 00:00: 00 No 1mg clonidine HCl 0.3 mg tablet 2019-08 00:00: 00 No 1mg gabapentin 300 mg capsule 2019-08 00:00: 00 No 1mg Wellbutrin XL 150 mg 24 hr tablet, extended release 2019-08 00:00: 00 No 1mg Wellbutrin XL 300 mg 24 hr tablet, extended release 2019-08 00:00: 00 No 1mg olanzapine 5 mg tablet 2019-08 00:00: 00 No 1mg clonidine HCl 0.3 mg tablet 2019-08 00:00: 00 No 1mg gabapentin 300 mg capsule 2019-08 00:00: 00 No 1mg Wellbutrin XL 150 mg 24 hr tablet, extended release 2019-08 00:00: 00 No 1mg Wellbutrin XL 300 mg 24 hr tablet, extended release 2019-08 00:00: 00 No 1mg olanzapine 5 mg tablet 2019-08 00:00: 00 No 1mg clonidine HCl 0.3 mg tablet 2019-08 00:00: 00 No 1mg gabapentin 300 mg capsule 2019-08 00:00: 00 No 1mg Wellbutrin XL 150 mg 24 hr tablet, extended release 2019-08 00:00: 00 No 1mg Wellbutrin XL 300 mg 24 hr tablet, extended release 2019-08 00:00: 00 No 1mg olanzapine 5 mg tablet 2019-08 00:00: 00 No 1mg clonidine HCl 0.3 mg tablet 2019-08 00:00: 00 No 1mg gabapentin 300 mg capsule 2019-08 00:00: 00 No 1mg fluoxetine 20 mg tablet 2019-08 00:00: 00 No mg fluoxetine 20 mg tablet 2019-08 00:00: 00 No mg fluoxetine 20 mg tablet 2019-08 00:00: 00 No mg fluoxetine 20 mg tablet 2019-08 00:00: 00 No mg fluoxetine 20 mg tablet 2019-08 00:00: 00 No mg FERRALET 90 (FE CBN-FE GLUC-FA-B12 -C-DSS) 90-1 MG TABS 10-11 00:00: 00 Yes Adali Mcpherson Take 1 Tablet Once a Day [facility] VITAFOL ULTRA (PRENAT-FE POLY-METHFO L-FA-DHA) 29-0.6-0.4- 200 MG CAPS 10-07 00:00: 00 Yes Colette Serratop 1{Capsu le} 1xD take 1 capsule by mouth daily [facility] BLOOD PRESSURE (BLOOD PRESSURE MONITORING) KIT 10-07 00:00: 00 Yes Colette Manning take twice daily [facility] PNV 67-iron ps-folate no.1-dha (VITAFOL ULTRA) 29 mg iron- 1 mg-200 mg Cap 03 00:00: 00 Yes [id number] Take 1 TAB-CAP/M2 by mouth daily. [facility] cetirizine 5 mg tablet 12-22 00:00: 00 No 1mg prednisone 10 mg tablet 12-22 00:00: 00 No 1mg azithromyci n 250 mg tablet 12-22 00:00: 00 No mg promethazin e-DM 6.25 mg-15 mg/5 mL oral syrup 12-22 00:00: 00 No 5mg/5 mL cetirizine 5 mg tablet 12-22 00:00: 00 No 1mg prednisone 10 mg tablet 12-22 00:00: 00 No 1mg azithromyci n 250 mg tablet 12-22 00:00: 00 No mg promethazin e-DM 6.25 mg-15 mg/5 mL oral syrup 12-22 00:00: 00 No 5mg/5 mL cetirizine 5 mg tablet 12-22 00:00: 00 No 1mg cetirizine 5 mg tablet 12-22 00:00: 00 No 1mg prednisone 10 mg tablet 12-22 00:00: 00 No 1mg azithromyci n 250 mg tablet 12-22 00:00: 00 No mg promethazin e-DM 6.25 mg-15 mg/5 mL oral syrup 12-22 00:00: 00 No 5mg/5 mL prednisone 10 mg tablet 12-22 00:00: 00 No 1mg azithromyci n 250 mg tablet 12-22 00:00: 00 No mg cetirizine 5 mg tablet 12-22 00:00: 00 No 1mg prednisone 10 mg tablet 12-22 00:00: 00 No 1mg azithromyci n 250 mg tablet 12-22 00:00: 00 No mg promethazin e-DM 6.25 mg-15 mg/5 mL oral syrup 12-22 00:00: 00 No 5mg/5 mL promethazin e-DM 6.25 mg-15 mg/5 mL oral syrup 12-22 00:00: 00 No 5mg/5 mL norgestimat e-ethinyl estradiol 0.18 mg/0.215mg/ 0.25mg-35 mcg(28)tabl et 09-10 00:00: 00 No 1mg-35 mcg (28) norgestimat e-ethinyl estradiol 0.18 mg/0.215mg/ 0.25mg-35 mcg(28)tabl et 09-10 00:00: 00 No 1mg-35 mcg (28) norgestimat e-ethinyl estradiol 0.18 mg/0.215mg/ 0.25mg-35 mcg(28)tabl et 09-10 00:00: 00 No 1mg-35 mcg (28) norgestimat e-ethinyl estradiol 0.18 mg/0.215mg/ 0.25mg-35 mcg(28)tabl et 09-10 00:00: 00 No 1mg-35 mcg (28) norgestimat e-ethinyl estradiol 0.18 mg/0.215mg/ 0.25mg-35 mcg(28)tab et 09-10 00:00: 00 No 1mg-35 mcg (28) No known medications No Un adrian [facility] No known medications No Un adrian [facility] Vital Signs Vital Name Observation Time Observation Value Comments S ource Systolic blood pressure 2019-08-31 23:06:00 93 mm[Hg] [facility] Diastolic blood pressure 2019-08-31 23:06:00 64 mm[Hg] [facility] Heart rate 2019-08-31 23:06:00 90 /min [facility] Body temperature 2019-08-31 23:06:00 36.39 Vicky [facility] Respiratory rate 2019-08-31 23:06:00 18 /min [facility] Body height 2019-08-31 23:06:00 160 cm [facility] Body weight 2019-08-31 23:06:00 101.606 kg [facility] BMI 2019-08-31 23:06:00 39.68 kg/m2 [facility] Systolic blood pressure 2019-04-14 19:00:00 117 mm[Hg] [facility] Diastolic blood pressure 2019-04-14 19:00:00 70 mm[Hg] [facility] Heart rate 2019-04-14 19:00:00 79 /min [facility] Body temperature 2019-04-14 19:00:00 36.89 Vicky [facility] Respiratory rate 2019-04-14 19:00:00 18 /min [facility] Body height 2019-04-14 19:00:00 160 cm [facility] Body weight 2019-04-14 19:00:00 87.544 kg [facility] BMI 2019-04-14 19:00:00 34.19 kg/m2 [facility] Systolic blood pressure 2019-03-17 14:24:00 112 mm[Hg] [facility] Diastolic blood pressure 2019-03-17 14:24:00 70 mm[Hg] [facility] Heart rate 2019-03-17 14:24:00 77 /min [facility] Body temperature 2019-03-17 14:24:00 36.83 Vicky [facility] Respiratory rate 2019-03-17 14:24:00 18 /min [facility] Body height 2019-03-17 14:24:00 160 cm [facility] Body weight 2019-03-17 14:24:00 90.266 kg [facility] BMI 2019-03-17 14:24:00 35.25 kg/m2 [facility] BP Systolic 2022-05-07 17:13:00 117 mm[Hg] BP [...] Rate 2021-03-13 13:32:00 16.00 /min blood pressure, diastolic 2019-10-14 13:44:33 84 mm[Hg] [facility] [email or web address] blood pressure, systolic 2019-10-14 13:44:33 125 mm[Hg] [facility] [employer] pulse rate E&M 2019-10-14 13:44:33 87 /min L [facility] oxygen saturation, oximetry 2019-10-14 13:44:33 97 % [facility] respiratory rate E&M 2019-10-14 13:44:33 20 /min [facility] temperature site 2019-10-14 13:44:33 oral [facility] temperature E&M 2019-10-14 13:44:33 98.3 [degF] [facility] weight E&M 2019-10-14 13:44:33 238.8 [lb_av] [place] [facility] height E&M 2019-10-14 13:44:33 63 [in_i] Legac y [facility] oxygen saturation, oximetry 2019-10-07 14:07:37 98 % [facility] blood pressure, diastolic 2019-10-07 14:07:37 83 mm[Hg] [facility] blood pressure, systolic 2019-10-07 14:07:37 130 mm[Hg] [facility] pulse rate E&M 2019-10-07 14:07:37 91 /min L [facility] temperature E&M 2019-10-07 14:07:37 98.6 [degF] [employer] [facility] [employer] [facility] site 2019-10-07 14:07:37 oral [facility] height E&M 2019-10-07 14:07:37 63 [in_i] Legac y [facility] weight E&M 2019-10-07 14:07:37 235 [lb_av] [facility] Procedures Procedure Date / Time Performed Performing Clinician Source CONSENT/REFUSAL FOR DIAGNOSIS AND TREATMENT 2019-10-25 05:01:00 Doctor Unassigned, [place] [facility] Nutrition Counseling (Obese) 2019-10-14 14:28:44 Heaven Morrow [facility] Case Mgmt Visit, Non-Billable [id number] 2019-10-07 15:54:24 Yenni Gross [facility] Vaccines Ordered - Print Consent/Declination Forms 2019-10-07 15:46:26 Colette Chowdary [facility] [facility] POCT URINALYSIS W/O SPECIFIC GRAVITY 2019-08-31 00:00:00 Janna Bonilla [facility] <14 WEEKS US LIMITED 2019-04-16 17:44:02 Guerrero Whitaker [facility] CBC WITH DIFFERENTIAL 2019-04-14 21:36:00 Guerrero Whitaker [facility] ASSIGNMENT OF BENEFITS 2019-04-14 20:00:31 Docto r Unassigned, [place] [facility] <14 WEEKS US LIMITED 2019-03-20 23:54:07 Guerrero Whitaker [facility] TOTAL BETA HCG ASSAY 2019-03-17 15:19:00 Guerrero Whitaker [facility] GC & CHLAMYDIA AMPLIFIED ASSAY 2019-03-17 14:53:00 Guerrero Whitaker [facility] GALV ONLY - VAGINAL PATHOGENS BY DNA PROBE 2019-03-17 14:53:[address] [facility] ADC / LCC - DRUG SCREEN TRIAGE 2019-03-17 14:53:00 Guerrero Whitaker [facility] POCT TEST 2019-03-17 00:00:00 Guerrero Whitaker [facility] POCT URINALYSIS W/O SPECIFIC GRAVITY 2019-03-17 00:00:00 Guerrero Whitaker [facility] Plan of Care Planned Activity Planned Date Details Comments Source Goal Plan of Care Note [code = 79607-1] Goal Plan of Care Note [code = 51366-3] Goal Plan of Care Note [code = 60828-4] Goal Plan of Care Note [code = 02816-6] Goal Plan of Care Note [code = 48163-9] Goal Plan of Care Note [code = 78049-9] Goal Plan of Care Note [code = 83804-1] Goal Plan of Care Note [code = 37304-0] Goal Plan of Care Note [code = 42197-9] Goal Plan of Care Note [code = 04164-2] Goal Plan of Care Note [code = 25081-9] Goal Plan of Care Note [code = 32568-1] Goal Plan of Care Note [code = 26827-6] Goal Plan of Care Note [code = 71281-1] Goal Plan of Care Note [code = 74572-9] Goal Plan of Care Note [code = 77869-0] Goal Plan of Care Note [code = 75101-5] Goal Plan of Care Note [code = 03687-3] Goal Plan of Care Note [code = 82533-9] Goal Plan of Care Note [code = 09783-6] Goal Plan of Care Note [code = 27899-6] Goal Plan of Care Note [code = 57656-9] Goal Plan of Care Note [code = 92771-1] Goal Plan of Care Note [code = 97745-6] Goal Plan of Care Note [code = 07916-3] Goal Plan of Care Note [code = 96067-8] Goal Plan of Care Note [code = 84130-1] Goal Plan of Care Note [code = 47807-8] Goal Plan of Care Note [code = 11532-1] Goal Plan of Care Note [code = 00586-2] Goal Plan of Care Note [code = 75979-2] Goal Plan of Care Note [code = 10256-7] Goal Plan of Care Note [code = 95457-8] Goal Plan of Care Note [code = 74380-3] Goal Plan of Care Note [code = 56806-7] Goal Plan of Care Note [code = 74658-7] Goal Plan of Care Note [code = 30252-3] Goal Plan of Care Note [code = 05930-6] Goal Plan of Care Note [code = 16195-8] Goal Plan of Care Note [code = 11603-1] Goal Plan of Care Note [code = 28531-4] Goal Plan of Care Note [code = 92174-4] Goal Plan of Care Note [code = 85502-0] Goal Plan of Care Note [code = 12205-0] Goal Plan of Care Note [code = 60968-7] Goal Plan of Care Note [code = 14180-6] Goal Plan of Care Note [code = 50217-0] Goal Plan of Care Note [code = 45221-5] Goal Plan of Care Note [code = 45134-0] Goal Plan of Care Note [code = 78266-6] Goal Plan of Care Note [code = 60356-0] Goal Plan of Care Note [code = 12259-3] Goal Plan of Care Note [code = 16406-4] Goal Plan of Care Note [code = 84686-5] Goal Plan of Care Note [code = 61634-4] Goal Plan of Care Note [code = 48231-1] Goal Plan of Care Note [code = 09428-8] Goal Plan of Care Note [code = 52958-8] Goal Plan of Care Note [code = 33325-8] Goal Plan of Care Note [code = 32363-4] Goal Plan of Care Note [code = 80897-8] Goal Plan of Care Note [code = 90776-5] Goal Plan of Care Note [code = 64296-6] Goal Plan of Care Note [code = 49169-4] Goal Plan of Care Note [code = 91774-3] Goal Plan of Care Note [code = 89887-0] Goal Plan of Care Note [code = 85230-3] Goal Plan of Care Note [code = 33632-9] Goal Plan of Care Note [code = 38915-2] Goal Plan of Care Note [code = 71754-1] Goal Plan of Care Note [code = 34270-3] Goal Plan of Care Note [code = 68699-1] Goal Plan of Care Note [code = 88666-1] Goal Plan of Care Note [code = 99830-1] Goal Plan of Care Note [code = 95222-6] Goal Plan of Care Note [code = 48876-4] Goal Plan of Care Note [code = 40975-0] Goal Plan of Care Note [code = 34174-3] Goal Plan of Care Note [code = 57946-3] Goal Plan of Care Note [code = 54682-7] Goal Plan of Care Note [code = 38559-0] Goal Plan of Care Note [code = 96704-0] Goal Plan of Care Note [code = 22921-3] Goal Plan of Care Note [code = 95265-0] Goal Plan of Care Note [code = 63058-3] Goal Plan of Care Note [code = 85638-1] Goal Plan of Care Note [code = 26713-6] Goal Plan of Care Note [code = 83030-4] Goal Plan of Care Note [code = 07201-5] Goal Plan of Care Note [code = 53444-7] Goal Plan of Care Note [code = 11838-4] Goal Plan of Care Note [code = 25554-5] Goal Plan of Care Note [code = 95076-9] Goal Plan of Care Note [code = 36800-1] Goal Plan of Care Note [code = 56483-2] Goal Plan of Care Note [code = 30885-4] Goal Plan of Care Note [code = 69238-8] Goal Plan of Care Note [code = 98316-9] Goal Plan of Care Note [code = 03443-2] Goal Plan of Care Note [code = 28939-2] Goal Plan of Care Note [code = 35838-4] Goal Plan of Care Note [code = 84742-1] Goal Plan of Care Note [code = 86988-6] Goal Plan of Care Note [code = 55176-8] Goal Plan of Care Note [code = 34839-8] Goal Plan of Care Note [code = 27904-3] Goal Plan of Care Note [code = 76575-2] Goal Plan of Care Note [code = 57032-9] Goal Plan of Care Note [code = 92927-3] Goal Plan of Care Note [code = 91734-4] Goal Plan of Care Note [code = 09072-7] Goal Plan of Care Note [code = 97985-6] Goal Plan of Care Note [code = 72810-8] Goal Plan of Care Note [code = 12411-7] Goal Plan of Care Note [code = 47980-5] Goal Plan of Care Note [code = 16609-5] Goal Plan of Care Note [code = 55093-6] Goal Plan of Care Note [code = 32303-9] Goal Plan of Care Note [code = 69304-9] Goal Plan of Care Note [code = 75909-4] Goal Plan of Care Note [code = 96719-3] Goal Plan of Care Note [code = 97119-4] Goal Plan of Care Note [code = 15390-1] Goal Plan of Care Note [code = 62925-2] Goal Plan of Care Note [code = 25725-4] Goal Plan of Care Note [code = 99356-5] Goal Plan of Care Note [code = 30930-1] Goal Plan of Care Note [code = 24560-0] Goal Plan of Care Note [code = 40289-2] Goal Plan of Care Note [code = 73541-9] Goal Plan of Care Note [code = 18282-5] Goal Plan of Care Note [code = 07541-3] Goal Plan of Care Note [code = 71114-4] Goal Plan of Care Note [code = 45504-0] Goal Plan of Care Note [code = 13891-6] Goal Plan of Care Note [code = 98785-6] Goal Plan of Care Note [code = 12203-2] Goal Plan of Care Note [code = 25712-1] Goal Plan of Care Note [code = 21168-1] Goal Plan of Care Note [code = 64816-0] Goal Plan of Care Note [code = 27687-2] Goal Plan of Care Note [code = 41667-9] Goal Plan of Care Note [code = 20413-9] Goal Plan of Care Note [code = 66822-1] Goal Plan of Care Note [code = 52079-5] Goal Plan of Care Note [code = 89622-6] Goal Plan of Care Note [code = 89166-3] Goal Plan of Care Note [code = 29353-1] Goal Plan of Care Note [code = 25383-1] Goal Plan of Care Note [code = 05322-6] Goal Plan of Care Note [code = 99266-6] Goal Plan of Care Note [code = 32587-6] Goal Plan of Care Note [code = 73371-0] Goal Plan of Care Note [code = 99329-9] Goal Plan of Care Note [code = 38372-2] Goal Plan of Care Note [code = 07034-6] Goal Plan of Care Note [code = 20722-0] Goal Plan of Care Note [code = 70791-0] Goal Plan of Care Note [code = 09706-6] Goal Plan of Care Note [code = 33097-5] Goal Plan of Care Note [code = 80181-6] Goal Plan of Care Note [code = 76603-4] Goal Plan of Care Note [code = 38357-8] Goal Plan of Care Note [code = 92687-8] Goal Plan of Care Note [code = 55069-0] Goal Plan of Care Note [code = 37475-0] Goal Plan of Care Note [code = 99625-8] Goal Plan of Care Note [code = 76084-9] Goal Plan of Care Note [code = 62800-1] Goal Plan of Care Note [code = 42816-1] Goal Plan of Care Note [code = 77667-2] Goal Plan of Care Note [code = 81317-1] Goal Plan of Care Note [code = 13562-8] Goal Plan of Care Note [code = 18871-4] Goal Plan of Care Note [code = 05056-4] Goal Plan of Care Note [code = 16184-1] Goal Plan of Care Note [code = 53869-2] Goal Plan of Care Note [code = 93689-4] Goal Plan of Care Note [code = 23729-8] Goal Plan of Care Note [code = 56149-5] Goal Plan of Care Note [code = 42336-4] Goal Plan of Care Note [code = 34750-1] Goal Plan of Care Note [code = 81523-0] Goal Plan of Care Note [code = 44258-6] Goal Plan of Care Note [code = 34155-3] Goal Plan of Care Note [code = 06762-1] Goal Plan of Care Note [code = 49101-6] Goal Plan of Care Note [code = 38026-7] Goal Plan of Care Note [code = 93580-3] Goal Plan of Care Note [code = 44245-4] Goal Plan of Care Note [code = 51017-1] Goal Plan of Care Note [code = 97586-0] Goal Plan of Care Note [code = 95397-5] Goal Plan of Care Note [code = 78802-8] Goal Plan of Care Note [code = 32681-1] Goal Plan of Care Note [code = 40108-0] Goal Plan of Care Note [code = 75915-7] Goal Plan of Care Note [code = 85347-4] Goal Plan of Care Note [code = 56010-2] Goal Plan of Care Note [code = 42444-4] Goal Plan of Care Note [code = 74292-8] Goal Plan of Care Note [code = 31050-6] Goal Plan of Care Note [code = 10450-4] Goal Plan of Care Note [code = 91220-3] Goal Plan of Care Note [code = 11670-9] Goal Plan of Care Note [code = 95880-1] Goal Plan of Care Note [code = 87954-7] Goal Plan of Care Note [code = 33896-5] Goal Plan of Care Note [code = 86816-9] Encounters Start Date/Time End Date/Time Encounter Type Admission Type Attending [facility] Care Department Encounter ID Source 2023-11-11 15:00:20 2023-11-11 15:00:20 Outpatient SFA SFA [id number] Cj Carlisle 2023-10-30 09:20:09 2023-10-30 09:20:09 Outpatient SFA SFA [id number] Cj Carlisle 2023-10-16 14:55:13 2023-10-16 14:55:13 Outpatient SFA SFA [id number] Cj Carlisle 2023-10-13 10:03:24 2023-10-13 10:03:24 Outpatient SFA SFA [id number] Cj Guzman Orestes 2023-09-03 17:01:34 2023-09-03 17:01:34 Outpatient SFA SFA [id number] Cj Carlisle 2023-08-05 17:09:08 2023-08-05 17:09:08 Outpatient SFA SFA [id number] Cj Carlisle 2023-07-11 10:26:43 2023-07-11 10:26:43 Outpatient SFA SFA [id number] Cj Guzman Orestes 2023-07-05 12:46:18 2023-07-05 12:46:18 Outpatient SFA SFA [id number] Cj Guzman Orestes 2023-06-04 16:14:59 2023-06-04 16:14:59 Outpatient SFA SFA [id number] Cj Carlisle 2023-05-21 14:50:27 2023-05-21 14:50:27 Outpatient SFA SFA [id number] Cj Guzman Orestes 2023-05-07 13:29:15 2023-05-07 13:29:15 Outpatient SFA SFA [id number] Cj Guzman Orestes 2023-05-04 14:07:34 2023-05-04 14:07:34 Outpatient SFA SFA [id number] Cj Guzman Orestes 2023-04-30 15:40:18 2023-04-30 15:40:18 Outpatient SFA SFA [id number] Cj Guzman Orestes 2023-04-08 12:40:22 2023-04-08 12:40:22 Outpatient SFA SFA [id number] Cj Carlisle 2023-03-28 13:58:41 2023-03-28 13:58:41 Outpatient SFA SFA [id number] Cj Carlisle 2023-03-24 12:23:25 2023-03-24 12:23:25 Outpatient SFA SFA [id number] Cj Carlisle 2023-03-10 14:14:23 2023-03-10 14:14:23 Outpatient SFA SFA [id number] Cj Carlisle 2023-02-17 13:57:55 2023-02-17 13:57:55 Outpatient SFA SFA [id number] 07 jC Carlisle 2022-12-31 14:01:12 2022-12-31 14:01:12 Outpatient SFA SFA [id number] Cj Carlisle 2022-10-17 13:22:30 2022-10-17 13:22:30 Outpatient SFA SFA [id number] Cj Carlisle 2022-07-04 16:27:15 2022-07-04 16:27:15 Outpatient SFA SFA [id number] Cj Carlisle 2022-06-25 09:30:43 2022-06-25 09:30:43 Outpatient SFA SFA [id number] Cj Carlisle 2022-04-04 00:00:00 2022-04-04 00:00:00 Outpatient Visit 9ux77m9x- 8ei8-2747 -c54d-869 v2cggf667 [id number] 7os68x5b-8 cf4-4333-a 14d-616d2c xhq883 2022-03-29 00:00:00 2022-03-29 00:00:00 Outpatient Visit 15t8h7qn- 4o20-337f -aee4-f53 oe8l5w8cp [id number] 47m6m4je-3 p40-973j-g ee4-f53cf0 d1d1ff 2022-03-23 00:00:00 2022-03-23 00:00:00 Outpatient Visit r77rgb37- e0w8-2z89 -ca77-40n s1y1j967u [id number] g79pua36-t 9c1-1n74-o p69-21fj5x 0s105u 2022-03-20 00:00:00 2022-03-20 00:00:00 Outpatient Visit 81j5656z- 499b-4139 -p673-x08 h4o216y16 [id number] 15u4740l-9 99b-4139-b 979-d90d6a 082f34 2022-03-11 00:00:00 2022-03-11 00:00:00 Outpatient Visit e3jzz721- 2ar3-4dd2 -9183-471 ayz31q37d [id number] a5dou361-0 be8-4fb1-9 183-471bfe 09f04a 2022-03-05 00:00:00 2022-03-05 00:00:00 Outpatient Visit c2f51681- 7883-4b9d -va7k-75u [id number] [id number] q8i82962-0 883-4b9d-a l4s-36n899 953bc3 2022-02-28 00:00:00 2022-02-28 00:00:00 Outpatient Visit 7zy23m88- tg08-51v1 -u6wk-5cv [id number] 3hl37c66-c y02-02w7-e 3bc-2cr448 883141 5909-07-11 00:00:00 2022-02-25 00:00:00 Outpatient Visit zx2258b9- 03cc-4c8d -8777-5b3 05049j2do [id number] oq7084d9-5 3cc-4c8d-8 777-6n5963 20b2eb 2019-11-17 00:00:00 2019-11-17 00:00:00 Telephone Guerrero Whitaker [facility] Jing [facility] 1.2.840.114 350.1.13.10 4.2.7.2.686 [id number] [facility] 2019-10-25 00:00:00 2019-10-25 00:00:00 Orders Only Doctor Unassigned, [place] [facility] 1.2.840.114 350.1.13.10 4.2.7.2.686 [id number] [facility] 2019-10-21 00:00:00 2019-10-21 00:00:00 Office Visit Arlene Valentino [facility] Encounter/ [id number] [facility] 2019-10-21 00:00:00 2019-10-21 00:00:00 Office Visit Arlene Valentino [facility] En[facility]/ [id number] [facility] 2019-10-19 00:00:00 2019-10-19 00:00:00 Office Visit Arlene Valentino Zule[place] [facility] Encounter/ [id number] [facility] 2019-10-19 00:00:00 2019-10-19 00:00:00 Office Visit Arlene Valentino [facility] En[facility]/ [id number] [facility] 2019-10-19 00:00:00 2019-10-19 00:00:00 Office Visit Arlene Valentino [facility] En[facility]/ [id number] [facility] 2019-10-18 00:00:00 2019-10-18 00:00:00 Office Visit Arlene Valentino [facility] Encounter/ [id number] [facility] 2019-10-15 00:00:00 2019-10-15 00:00:00 Office Visit Arlene Valentino [facility] En[facility]/ [id number] [facility] 2019-10-14 00:00:00 2019-10-14 00:00:00 Office Visit Heaven Morrow [facility] Encounter/ [id number] [facility] 2019-10-14 00:00:2019-10-14 00:00:00 Office Visit Heaven Morrow [facility] Encounter/ [id number] [facility] 2019-10-14 00:00:00 2019-10-14 00:00:00 Office Visit Heaven Morrow [facility] Encounter/ [id number] [facility] 2019-10-14 00:00:00 2019-10-14 00:00:00 Office Visit Heaven Morrow [facility] Encounter/ [id number] [facility] 2019-10-14 00:00:00 2019-10-14 00:00:00 Office Visit [facility]row Maria Castillo, Stephanie A [facility] Encounter/ [id number] [facility] 2019-10-14 00:00:00 2019-10-14 00:00:00 Office Visit Yina Green [facility] Encounter/ [id number] [facility] 2019-10-11 00:00:00 2019-10-11 00:00:00 Office Visit Adali Mcpherson [facility] Encounter/ [id number] [facility] 2019-10-07 00:00:00 2019-10-07 00:00:00 Office Visit Responsible Provider, Not Yet Assigned Adali Mcpherson [facility] Encounter/ [id number] [facility] 2019-10-07 00:00:00 2019-10-07 00:00:00 Office Visit Responsible Provider, Not Yet Assigned Adali Mcpherson [facility] Encounter/ [id number] [facility] 2019-10-07 00:00:00 2019-10-07 00:00:00 Office Visit Responsible Provider, Not Yet Assigned Adali Mcpherson [facility] Encounter/ [id number] [facility] 2019-10-07 00:00:00 2019-10-07 00:00:00 Office Visit Gross, Yenni [facility] Encounter/ [id number] [facility] 2019-10-07 00:00:00 2019-10-07 00:00:00 Office Visit Siding Applicator, [facility] Shayy Rios [facility] Services Encounter/ [id number] [facility] 2019-10-07 00:00:00 2019-10-07 00:00:00 Office Visit Colette Chowdary, Tram Dobson, Yenni Tejeda RiosShayy sandoval [facility] Encounter/ [id number] [facility] 2019-10-06 00:00:00 2019-10-06 00:00:00 Office Visit Yina Green [facility] Encounter/ [id number] [facility] 2019-09-30 15:00:00 2019-09-30 15:00:[address] [facility] [id number] [facility] 2019-09-16 00:00:00 2019-09-16 00:00:00 Letter (Out) [facility]idenciogifty [facility] 12.840.114 350.1.13.10 4.2.7.2.686 [id number] [facility] 2019-08-31 16:27:53 2019-08-31 16:42:53 Routine Visit Fidenciogifty [facility] 12.840.114 350.1.13.10 4.2.7.2.686 [id number] [facility] 2019-08-27 15:00:00 2019-08-27 18:05:33 Outpatient GUILLERMINA ORNELAS [facility] [id number] [facility] 2019-05-03 00:00:00 2019-05-03 00:00:00 Case Management Guerrero Whitaker [facility] 1.2.840.114 350.1.13.10 4.2.7.2.686 [id number] [facility] 2019-04-21 00:00:00 2019-04-21 00:00:00 Case Management Guerrero Whitaker [facility] 1.2.840.114 350.1.13.10 4.2.7.2.686 [id number] [facility] 2019-04-21 00:00:00 2019-04-21 00:00:00 Telephone Guerrero Whitaker [facility] 1.2.840.114 350.1.13.10 4.2.7.2.686 [id number] [facility] 2019-04-20 00:00:00 2019-04-20 00:00:00 Telephone Guerrero Whitaker [facility] 1.2.840.114 350.1.13.10 4.2.7.2.686 [id number] [facility] 2019-04-14 15:00:27 2019-04-14 15:15:27 Manager Interface Visit 1, Adc Lab Guerrero Whitaker [facility] 1.2.840.114 350.1.13.10 4.2.7.2.686 [id number] [facility] 2019-04-14 15:00:00 2019-04-14 15:00:00 Outpatient R GUERRERO WHITAKER [facility] [id number] [facility] 2019-04-14 13:41:25 2019-04-14 14:43:27 Routine Visit Guerrero Whitaker [facility] 1.2.840.114 350.1.13.10 4.2.7.2.686 [id number] [facility] 2019-04-14 00:00:00 2019-04-14 00:00:00 Letter (Out) Guerrero Whitaker [facility] 1.2.840.114 350.1.13.10 4.2.7.2.686 [id number] [facility] 2019-04-14 00:00:00 2019-04-14 00:00:00 Orders Only Doctor Unassigned, [place] [facility] 1.2.840.114 350.1.13.10 4.2.7.2.686 [id number] [facility] 2019-04-07 00:00:00 2019-04-07 00:00:00 Telephone Guerrero Whitaker [facility] 1.2.840.114 350.1.13.10 4.2.7.2.686 [id number] [facility] 2019-04-01 00:00:00 2019-04-01 00:00:00 Telephone Guerrero Whitaker [facility] 1.2.840.114 350.1.13.10 4.2.7.2.686 [id number] [facility] 2019-03-17 10:12:58 2019-03-24 08:59:00 Manager Interface Visit 1, Adc Lab Guerrero Whitaker [facility] 1.2.840.114 350.1.13.10 4.2.7.2.686 [id number] [facility] [id number] [facility] 2019-03-17 10:15:00 2019-03-17 10:15:00 Outpatient R GUERRERO WHITAKER [facility] [id number] [facility] 2019-03-17 08:58:48 2019-03-17 10:02:46 Initial Visit Guerrero Whitaker [facility] 1.2.840.114 350.1.13.10 4.2.7.2.686 [id number] [facility] Results Test Description Test Time Test Comments Results Result Co mments Source GONORRHEA, NAAT, [id number] 12:29:30* Test Item Value Reference Range Interpretation Comme nts GONORRHEA, NAAT, URINE (test code = 97851) NEGATIVE NEGATIVE Testing is perfo rmed with Elpidio MIRA 6800/8800 systems usingreal-time polymerase chain reaction (PCR) method. A negative result does not exclude low level infection, specimensampling error, or collection error. RPR REFLEX TO T. PALLIDUM - [id number] 04:03:32* Test Item Value Reference Range Interpretation Comme nts RPR (test code = 49857) NON-REACTIVE NON-REACTIVE RPR TITER (test code = 3500) NOT INDIC. TITER NOT INDIC. HIV 1/2 4TH GEN, RFLX [id number] 04:01:26* Test Item Value Reference Range Interpretation Comme nts HIV 1/2 4TH GEN, RFLX CONF ( test code = 3514) NON-REACTIVE NON-REACTIVE HEPATITIS PANEL, [id number] 04:01:26* Test Item Value Reference Range Interpretation Comme nts HEPATITIS A IgM (test code = 00650) NON-REACTIVE NON-REACTIVE HEPATITIS B CORE IgM (test code = 4644) NON-REACTIVE NON-REACTIVE HEPATITIS B SURF AG (test code = 2739) NON-REACTIVE NON-REACTIVE HEPATITIS C ANTIBODY (test code = 4675) NON-REACTIVE NON-REACTIVE INTERPRETATION HEPATITIS A: (test code = 2552) (NOTE) Hepatitis A sero logy shows no evidence of acute hepatitis A. INTERPRETATION HEPATITIS B: (test code = 18588) (NOTE) Hepatitis B sero logy shows no evidence of acute hepatitis B andno indication of exposure to hepatitis B virus in the previous huyen eight months. INTERPRETATION HEPATITIS C: (test code = 99231) (NOTE) Hepatitis C sero logy shows no evidence of exposure to hepatitisC virus at this time. It can take up to 12 months after exposure tothe hepatitis C virus for antibodies to become detectable in the blood in certain patients. UNLESS OTHERWISE INDICATED, ALL TESTING PERFORMED AT [facility] [address] [place] [id number] INVENTORY CHECKER: SHAYY SANTOS M.D. CLIA NUMBER [id number] [facility] [place] [id number] CULTURE, ROUTINE SENSITIVITY ON [id number] 14:09:05SPECIMEN NUMBER: [id number] CULTURE, ROUTINE SENSITIVITY ON ALL SPECIMEN NUMBER: [id number] SOURCE: OTHER SOURCE REPORT STATUS: FINAL FINAL REPORT: 07/09/2023 NO SPECIMEN RECEIVED FOR TESTING. CHARGESDELETED.HIV 1/2 4TH GEN, RFLX [id number] 02:08:57* Test Item Value Reference Range Interpretation Comme nts HIV 1/2 4TH GEN, RFLX CONF ( test code = 3514) NON-REACTIVE NON-REACTIVE HEPATITIS PANEL, [id number] 02:08:57* Test Item Value Reference Range Interpretation Comme nts HEPATITIS A IgM (test code = 11770) NON-REACTIVE NON-REACTIVE HEPATITIS B CORE IgM (test code = 4644) NON-REACTIVE NON-REACTIVE HEPATITIS B SURF AG (test code = 2739) NON-REACTIVE NON-REACTIVE HEPATITIS C ANTIBODY (test code = 4675) NON-REACTIVE NON-REACTIVE INTERPRETATION HEPATITIS A: (test code = 2552) (NOTE) Hepatitis A serology shows no evidence of acute hepatitis A. INTERPRETATION HEPATITIS B: (test code = 23348) (NOTE) Hepatitis B serology shows no evidence of acute hepatitis B andno indication of exposure to hepatitis B virus in the previous huyen eight months. INTERPRETATION HEPATITIS C: (test code = 60570) (NOTE) Hepatitis C serology shows no evidence of exposure to hepatitisC virus at this time. It can take up to 12 months after exposure tothe hepatitis C virus for antibodies to become detectable in the blood in certain patients. [id number] 23:37:07* Test Item Value Reference Range Interpretation Comme nts RPR RESULT (test code = 3501) NON-REACTIVE NON-REACTIVE RPR TITER (test code = 3500) NOT INDIC. TITER NOT INDIC. CT/NG, NAAT, [id number] 14:03:18* Test Item Value Reference Range Interpretation Comme nts CHLAMYDIA, NAAT, URINE (test code = 66452) NEGATIVE NEGATIVE Testing is perfo rmed with [employer] MIRA 6800/8800 systems usingreal-time polymerase chain reaction (PCR) method. A negative result does not exclude low level infection, specimensampling error, or collection error. GONORRHEA, NAAT, URINE (test code = 79918) NEGATIVE NEGATIVE Testing is perfo rmed with [employer] MIR[employer] 6800/8800 systems usingreal-time polymerase chain reaction (PCR) method. A negative result does not exclude low level infection, specimensampling error, or collection error. UNLESS OTHERWISE INDICATED, ALL TESTING PERFORMED AT [facility] [address] [place] [address] INVENTORY CHECKER: SHAYY SANTOS M.D. [place] NUMBER [id number] [place] [id number] CULTURE, [id number] 11:36:54SPECIMEN NUMBER: [id number] CULTURE, URINE SPECIMEN NUMBER: [id number] SPECIMEN COMMENT: URINE SOURCE: URINE REPORT STATUS: FINAL FINAL REPORT: 07/07/2023 50-100,000 CFU/ML UROGENITAL LINDSAY PRESENT NO C OMMON PATHOGENSTRICHOMONAS, NAAT, [id number] 16:23:16* Test Item Value Reference Range Interpretation Comme nts TRICHOMONAS, NAAT, URINE (test code = 32659) NEGATIVE NEGATIVE Testing is perfo rmed with [employer] MIRA 6800/8800 method usingreal-time polymerase chain reaction (PCR) method. A negative result does not exclude low level infection, specimensampling error, or collection error. CHLAMYDIA, NAAT, [id number] 16:22:13* Test Item Value Reference Range Interpretation Comme nts CHLAMYDIA, NAAT, URINE (test code = 37347) POSITIVE NEGATIVE A Testing is perfo rmed with [employer] [facility]IR[employer] 6800/8800 systems usingreal-time polymerase chain reaction (PCR) method. GONORRHEA, NAAT, [id number] 16:22:13* Test Item Value Reference Range Interpretation Comme nts GONORRHEA, NAAT, URINE (test code = 38393) NEGATIVE NEGATIVE Testing is perfo rmed with [employer] [facility] 6800/8800 systems usingreal-time polymerase chain reaction (PCR) method. A negative result does not exclude low level infection, specimensampling error, or collection error. RPR REFLEX TO T. PALLIDUM - [id number] 05:31:29* Test Item Value Reference Range Interpretation Comme nts RPR (test code = 62309) NON-REACTIVE NON-REACTIVE RPR TITER (test code = 3500) NOT INDIC. TITER NOT INDIC. HIV 1/2 4TH GEN, RFLX [id number] 05:05:42* Test Item Value Reference Range Interpretation Comme nts HIV 1/2 4TH GEN, RFLX CONF ( test code = 3514) NON-REACTIVE NON-REACTIVE HEPATITIS PANEL, [id number] 05:05:42* Test Item Value Reference Range Interpretation Comme nts HEPATITIS A IgM (test code = 28186) NON-REACTIVE NON-REACTIVE HEPATITIS B CORE IgM (test code = 4644) NON-REACTIVE NON-REACTIVE HEPATITIS B SURF AG (test code = 2739) NON-REACTIVE NON-REACTIVE HEPATITIS C ANTIBODY (test code = 4675) NON-REACTIVE NON-REACTIVE INTERPRETATION HEPATITIS A: (test code = 2552) (NOTE) Hepatitis A sero logy shows no evidence of acute hepatitis A. INTERPRETATION HEPATITIS B: (test code = 00963) (NOTE) Hepatitis B sero logy shows no evidence of acute hepatitis B andno indication of exposure to hepatitis B virus in the previous huyen eight months. INTERPRETATION HEPATITIS C: (test code = 36396) (NOTE) Hepatitis C sero logy shows no evidence of exposure to hepatitisC virus at this time. It can take up to 12 months after exposure tothe hepatitis C virus for antibodies to become detectable in the blood in certain patients. [facility] has important pathology staff changes effective 10/16/2022. New pathology staff will provide uninterrupted, excellent patient care and clinical consultation. See URL: [email or web address]. UNLESS OTHERWISE INDICATED, ALL TESTING PERFORMED AT [facility] [address] [place] [address] INVENTORY CHECKER: CAMPOS ALVARENGA M.D. CLIA NUMBER [id number] [facility] [place]. [id number] CHLAMYDIA, NAAT, [id number] 13:11:20* Test Item Value Reference Range Interpretation Comme nts CHLAMYDIA, NAAT (test code = 66693) NEGATIVE NEGATIVE IMPORTANT NO KWAKU: SEE ANNOUNCEMENT AT [email or web address] Note: Assay methodology is nucleic acid amplification by talent sourcing specialist mediated amplification (TMA) utilizing the Aptima Combo 2 Assay. GONORRHEA, NAAT, [id number] 13:11:20* Test Item Value Reference Range Interpretation Comme nts GONORRHEA, NAAT (test code = 47447) NEGATIVE NEGATIVE IMPORTANT NO KWAKU: SEE ANNOUNCEMENT AT [email or web address] Note: Assay methodology is nucleic acid amplification by talent sourcing specialist mediated amplification (TMA) utilizing the AptProductBio Combo 2 Assay. UNLESS OTHERWISE INDICATED, [facility] [address] [place] [address] INVENTORY CHECKER: CAMPOS ALVARENGA M.D. CLIA NUMBER [id number] [facility] [place]. [id number] CHLAMYDIA, AMPLIFIED, [id number] 00:00:00* Test Item Value Reference Range Interpretation Comme nts CHLAMYDIA, NAAT (test code = 05800) NEGATIVE CHLAMYDIA, AMPLIFIED, [id number] 00:00:00* Test Item Value Reference Range Interpretation Comme nts CHLAMYDIA, NAAT (test code = 61570) NEGATIVE GC, AMPLIFIED, [id number] 00:00:00* Test Item Value Reference Range Interpretation Comme nts GONORRHEA, NAAT (test code = 77406) NEGATIVE GC, AMPLIFIED, [id number] 00:00:00* Test Item Value Reference Range Interpretation Comme nts GONORRHEA, NAAT (test code = 45501) NEGATIVE CHLAMYDIA, AMPLIFIED, [id number] 00:00:00* Test Item Value Reference Range Interpretation Comme nts CHLAMYDIA, NAAT (test code = 08701) NEGATIVE CHLAMYDIA, AMPLIFIED, [id number] 00:00:00* Test Item Value Reference Range Interpretation Comme nts CHLAMYDIA, NAAT (test code = 20551) NEGATIVE GC, AMPLIFIED, [id number] 00:00:00* Test Item Value Reference Range Interpretation Comme nts GONORRHEA, NAAT (test code = 02975) NEGATIVE GC, AMPLIFIED, [id number] 00:00:00* Test Item Value Reference Range Interpretation Comme nts GONORRHEA, NAAT (test code = 91663) NEGATIVE CHLAMYDIA, AMPLIFIED, [id number] 00:00:00* Test Item Value Reference Range Interpretation Comme nts CHLAMYDIA, NAAT (test code = 15258) NEGATIVE GC, AMPLIFIED, [id number] 00:00:00* Test Item Value Reference Range Interpretation Comme nts GONORRHEA, NAAT (test code = 75465) NEGATIVE CHLAMYDIA, AMPLIFIED, [id number] 00:00:00* Test Item Value Reference Range Interpretation Comme nts CHLAMYDIA, NAAT (test code = 35827) NEGATIVE GC, AMPLIFIED, [id number] 00:00:00* Test Item Value Reference Range Interpretation Comme nts GONORRHEA, NAAT (test code = 10696) NEGATIVE CHLAMYDIA, AMPLIFIED, [id number] 00:00:00* Test Item Value Reference Range Interpretation Comme nts CHLAMYDIA, NAAT (test code = 82939) NEGATIVE GC, AMPLIFIED, [id number] 00:00:00* Test Item Value Reference Range Interpretation Comme nts GONORRHEA, NAAT (test code = 90880) NEGATIVE CHLAMYDIA, AMPLIFIED, [id number] 00:00:00* Test Item Value Reference Range Interpretation Comme nts CHLAMYDIA, NAAT (test code = 03910) NEGATIVE CHLAMYDIA, AMPLIFIED, [id number] 00:00:00* Test Item Value Reference Range Interpretation Comme nts CHLAMYDIA, NAAT (test code = 49853) NEGATIVE GC, AMPLIFIED, [id number] 00:00:00* Test Item Value Reference Range Interpretation Comme nts GONORRHEA, NAAT (test code = 07975) NEGATIVE GC, AMPLIFIED, [id number] 00:00:00* Test Item Value Reference Range Interpretation Comme nts GONORRHEA, NAAT (test code = 47755) NEGATIVE CHLAMYDIA, AMPLIFIED, [id number] 00:00:00* Test Item Value Reference Range Interpretation Comme nts CHLAMYDIA, NAAT (test code = 54687) NEGATIVE GC, AMPLIFIED, [id number] 00:00:00* Test Item Value Reference Range Interpretation Comme nts GONORRHEA, NAAT (test code = 66059) NEGATIVE CHLAMYDIA, AMPLIFIED, [id number] 00:00:00* Test Item Value Reference Range Interpretation Comme nts CHLAMYDIA, NAAT (test code = 62976) NEGATIVE CHLAMYDIA, AMPLIFIED, [id number] 00:00:00* Test Item Value Reference Range Interpretation Comme nts CHLAMYDIA, NAAT (test code = 63550) NEGATIVE GC, AMPLIFIED, [id number] 00:00:00* Test Item Value Reference Range Interpretation Comme nts GONORRHEA, NAAT (test code = 56140) NEGATIVE GC, AMPLIFIED, [id number] 00:00:00* Test Item Value Reference Range Interpretation Comme nts GONORRHEA, NAAT (test code = 82175) NEGATIVE CT/NG, NAAT, [id number] 19:10:11* Test Item Value Reference Range Interpretation Comme nts GONORRHEA, NAAT (test code = 98288) NEGATIVE NEGATIVE IMPORTANT NO KWAKU: SEE ANNOUNCEMENT AT [email or web address] Note: Assay methodology is nucleic acid amplification by talent sourcing specialist mediated amplification (TMA) utilizing the Aptima Combo 2 Assay. CHLAMYDIA, NAAT (test code = 63878) POSITIVE NEGATIVE A IMPORTANT NO KWAKU: SEE ANNOUNCEMENT AT [email or web address] [email or web address] Note: Assay methodology is nucleic acid amplification by talent sourcing specialist mediated amplification (TMA) utilizing the Aptima Combo 2 Assay. UNLESS OTHERWISE INDICATED, ALL TESTING [facility]FOR[facility] [address] [place] [address] INVENTORY CHECKER: CAMPOS ALVARENGA M.D. CLIA NUMBER [id number] [facility] [place]. [id number] GC AND CHLAMYDIA, AMPLIFIED, [id number] 00:00:00* Test Item Value Reference Range Interpretation Comme nts GONORRHEA, NAAT (test code = 63868) NEGATIVE CHLAMYDIA, NAAT (test code = 48165) POSITIVE GC AND CHLAMYDIA, AMPLIFIED, [id number] 00:00:00* Test Item Value Reference Range Interpretation Comme nts GONORRHEA, NAAT (test code = 88203) NEGATIVE CHLAMYDIA, NAAT (test code = 77814) POSITIVE GC AND CHLAMYDIA, AMPLIFIED, [id number] 00:00:00* Test Item Value Reference Range Interpretation Comme nts GONORRHEA, NAAT (test code = 08377) NEGATIVE CHLAMYDIA, NAAT (test code = 05836) POSITIVE GC AND CHLAMYDIA, AMPLIFIED, [id number] 00:00:00* Test Item Value Reference Range Interpretation Comme nts GONORRHEA, NAAT (test code = 30183) NEGATIVE CHLAMYDIA, NAAT (test code = 00886) POSITIVE GC AND CHLAMYDIA, AMPLIFIED, [id number] 00:00:00* Test Item Value Reference Range Interpretation Comme nts GONORRHEA, NAAT (test code = 99643) NEGATIVE CHLAMYDIA, NAAT (test code = 12153) POSITIVE GC AND CHLAMYDIA, AMPLIFIED, [id number] 00:00:00* Test Item Value Reference Range Interpretation Comme nts GONORRHEA, NAAT (test code = 90468) NEGATIVE CHLAMYDIA, NAAT (test code = 52282) POSITIVE GC AND CHLAMYDIA, AMPLIFIED, [id number] 00:00:00* Test Item Value Reference Range Interpretation Comme nts GONORRHEA, NAAT (test code = 60600) NEGATIVE CHLAMYDIA, NAAT (test code = 20307) POSITIVE GC AND CHLAMYDIA, AMPLIFIED, [id number] 00:00:00* Test Item Value Reference Range Interpretation Comme nts GONORRHEA, NAAT (test code = 26008) NEGATIVE CHLAMYDIA, NAAT (test code = 45730) POSITIVE GC AND CHLAMYDIA, AMPLIFIED, [id number] 00:00:00* Test Item Value Reference Range Interpretation Comme nts GONORRHEA, NAAT (test code = 94587) NEGATIVE CHLAMYDIA, NAAT (test code = 88314) POSITIVE GC AND CHLAMYDIA, AMPLIFIED, [id number] 00:00:00* Test Item Value Reference Range Interpretation Comme nts GONORRHEA, NAAT (test code = 13056) NEGATIVE CHLAMYDIA, NAAT (test code = 40333) POSITIVE GC AND CHLAMYDIA, AMPLIFIED, [id number] 00:00:00* Test Item Value Reference Range Interpretation Comme nts GONORRHEA, NAAT (test code = 25104) NEGATIVE CHLAMYDIA, NAAT (test code = 27058) POSITIVE GC AND CHLAMYDIA, AMPLIFIED, [id number] 00:00:00* Test Item Value Reference Range Interpretation Comme nts GONORRHEA, NAAT (test code = 59472) NEGATIVE CHLAMYDIA, NAAT (test code = 22256) POSITIVE HIV AB/AG COMBO RFLX [id number] 00:00:00* Test Item Value Reference Range Interpretation Comme nts HIV 1/2 4TH GEN, RFLX CONF ( test code = 3514) NON-REACTIVE HIV AB/AG COMBO RFLX [id number] 00:00:00* Test Item Value Reference Range Interpretation Comme nts HIV 1/2 4TH GEN, RFLX CONF ( test code = 3514) NON-REACTIVE ACUTE HEPATITIS [id number] 00:00:00* Test Item Value Reference Range Interpretation Comme nts HEPATITIS A IgM (test code = 42481) NON-REACTIVE HEPATITIS B CORE IgM (test c ode = 4644) NON-REACTIVE HEPATITIS B SURF AG (test co de = 2739) NON-REACTIVE HEPATITIS C ANTIBODY (test c ode = 4675) NON-REACTIVE INTERPRETATION HEPATITIS A: (test code = 2552) (NOTE) INTERPRETATION HEPATITIS B: (test code = 02145) (NOTE) INTERPRETATION HEPATITIS C: (test code = 81609) (NOTE) ACUTE HEPATITIS [id number] 00:00:00* Test Item Value Reference Range Interpretation Comme nts HEPATITIS A IgM (test code = 85875) NON-REACTIVE HEPATITIS B CORE IgM (test c ode = 4644) NON-REACTIVE HEPATITIS B SURF AG (test co de = 2739) NON-REACTIVE HEPATITIS C ANTIBODY (test c ode = 4675) NON-REACTIVE INTERPRETATION HEPATITIS A: (test code = 2552) (NOTE) INTERPRETATION HEPATITIS B: (test code = 16688) (NOTE) INTERPRETATION HEPATITIS C: (test code = 79510) (NOTE) GC, AMPLIFIED, [id number] 00:00:00* Test Item Value Reference Range Interpretation Comme nts GONORRHEA, NAAT (test code = 40129) NEGATIVE GC, AMPLIFIED, [id number] 00:00:00* Test Item Value Reference Range Interpretation Comme nts GONORRHEA, NAAT (test code = 87339) NEGATIVE CHLAMYDIA, AMPLIFIED, [id number] 00:00:00* Test Item Value Reference Range Interpretation Comme nts CHLAMYDIA, NAAT (test code = 44659) POSITIVE CHLAMYDIA, AMPLIFIED, [id number] 00:00:00* Test Item Value Reference Range Interpretation Comme nts CHLAMYDIA, NAAT (test code = 00663) POSITIVE HIV AB/AG COMBO RFLX [id number] 00:00:00* Test Item Value Reference Range Interpretation Comme nts HIV 1/2 4TH GEN, RFLX CONF ( test code = 3514) NON-REACTIVE HIV AB/AG COMBO RFLX [id number] 00:00:00* Test Item Value Reference Range Interpretation Comme nts HIV 1/2 4TH GEN, RFLX CONF ( test code = 3514) NON-REACTIVE ACUTE HEPATITIS [id number] 00:00:00* Test Item Value Reference Range Interpretation Comme nts HEPATITIS A IgM (test code = 76030) NON-REACTIVE HEPATITIS B CORE IgM (test c ode = 4644) NON-REACTIVE HEPATITIS B SURF AG (test co de = 2739) NON-REACTIVE HEPATITIS C ANTIBODY (test c ode = 4675) NON-REACTIVE INTERPRETATION HEPATITIS A: (test code = 2552) (NOTE) INTERPRETATION HEPATITIS B: (test code = 60221) (NOTE) INTERPRETATION HEPATITIS C: (test code = 95907) (NOTE) ACUTE HEPATITIS [id number] 00:00:00* Test Item Value Reference Range Interpretation Comme nts HEPATITIS A IgM (test code = 45954) NON-REACTIVE HEPATITIS B CORE IgM (test c ode = 4644) NON-REACTIVE HEPATITIS B SURF AG (test co de = 2739) NON-REACTIVE HEPATITIS C ANTIBODY (test c ode = 4675) NON-REACTIVE INTERPRETATION HEPATITIS A: (test code = 2552) (NOTE) INTERPRETATION HEPATITIS B: (test code = 82096) (NOTE) INTERPRETATION HEPATITIS C: (test code = 82070) (NOTE) GC, AMPLIFIED, [id number] 00:00:00* Test Item Value Reference Range Interpretation Comme nts GONORRHEA, NAAT (test code = 70818) NEGATIVE GC, AMPLIFIED, [id number] 00:00:00* Test Item Value Reference Range Interpretation Comme nts GONORRHEA, NAAT (test code = 39865) NEGATIVE CHLAMYDIA, AMPLIFIED, [id number] 00:00:00* Test Item Value Reference Range Interpretation Comme nts CHLAMYDIA, NAAT (test code = 00225) POSITIVE CHLAMYDIA, AMPLIFIED, [id number] 00:00:00* Test Item Value Reference Range Interpretation Comme nts CHLAMYDIA, NAAT (test code = 79394) POSITIVE HIV AB/AG COMBO RFLX [id number] 00:00:00* Test Item Value Reference Range Interpretation Comme nts HIV 1/2 4TH GEN, RFLX CONF ( test code = 3514) NON-REACTIVE ACUTE HEPATITIS [id number] 00:00:00* Test Item Value Reference Range Interpretation Comme nts HEPATITIS A IgM (test code = 87075) NON-REACTIVE HEPATITIS B CORE IgM (test c ode = 4644) NON-REACTIVE HEPATITIS B SURF AG (test co de = 2739) NON-REACTIVE HEPATITIS C ANTIBODY (test c ode = 4675) NON-REACTIVE INTERPRETATION HEPATITIS A: (test code = 2552) (NOTE) INTERPRETATION HEPATITIS B: (test code = 67746) (NOTE) INTERPRETATION HEPATITIS C: (test code = 65673) (NOTE) GC, AMPLIFIED, [id number] 00:00:00* Test Item Value Reference Range Interpretation Comme nts GONORRHEA, NAAT (test code = 75413) NEGATIVE CHLAMYDIA, AMPLIFIED, [id number] 00:00:00* Test Item Value Reference Range Interpretation Comme nts CHLAMYDIA, NAAT (test code = 96224) POSITIVE HIV AB/AG COMBO RFLX [id number] 00:00:00* Test Item Value Reference Range Interpretation Comme nts HIV 1/2 4TH GEN, RFLX CONF ( test code = 3514) NON-REACTIVE ACUTE HEPATITIS [id number] 00:00:00* Test Item Value Reference Range Interpretation Comme nts HEPATITIS A IgM (test code = 94911) NON-REACTIVE HEPATITIS B CORE IgM (test c ode = 4644) NON-REACTIVE HEPATITIS B SURF AG (test co de = 2739) NON-REACTIVE HEPATITIS C ANTIBODY (test c ode = 4675) NON-REACTIVE INTERPRETATION HEPATITIS A: (test code = 2552) (NOTE) INTERPRETATION HEPATITIS B: (test code = 13445) (NOTE) INTERPRETATION HEPATITIS C: (test code = 08599) (NOTE) GC, AMPLIFIED, [id number] 00:00:00* Test Item Value Reference Range Interpretation Comme nts GONORRHEA, NAAT (test code = 86153) NEGATIVE CHLAMYDIA, AMPLIFIED, [id number] 00:00:00* Test Item Value Reference Range Interpretation Comme nts CHLAMYDIA, NAAT (test code = 25051) POSITIVE HIV AB/AG COMBO RFLX [id number] 00:00:00* Test Item Value Reference Range Interpretation Comme nts HIV 1/2 4TH GEN, RFLX CONF ( test code = 3514) NON-REACTIVE ACUTE HEPATITIS [id number] 00:00:00* Test Item Value Reference Range Interpretation Comme nts HEPATITIS A IgM (test code = 37871) NON-REACTIVE HEPATITIS B CORE IgM (test c ode = 4644) NON-REACTIVE HEPATITIS B SURF AG (test co de = 2739) NON-REACTIVE HEPATITIS C ANTIBODY (test c ode = 4675) NON-REACTIVE INTERPRETATION HEPATITIS A: (test code = 2552) (NOTE) INTERPRETATION HEPATITIS B: (test code = 28594) (NOTE) INTERPRETATION HEPATITIS C: (test code = 25775) (NOTE) GC, AMPLIFIED, [id number] 00:00:00* Test Item Value Reference Range Interpretation Comme nts GONORRHEA, NAAT (test code = 99257) NEGATIVE CHLAMYDIA, AMPLIFIED, [id number] 00:00:00* Test Item Value Reference Range Interpretation Comme nts CHLAMYDIA, NAAT (test code = 88934) POSITIVE HIV AB/AG COMBO RFLX [id number] 00:00:00* Test Item Value Reference Range Interpretation Comme nts HIV 1/2 4TH GEN, RFLX CONF ( test code = 3514) NON-REACTIVE HIV AB/AG COMBO RFLX [id number] 00:00:00* Test Item Value Reference Range Interpretation Comme nts HIV 1/2 4TH GEN, RFLX CONF ( test code = 3514) NON-REACTIVE ACUTE HEPATITIS [id number] 00:00:00* Test Item Value Reference Range Interpretation Comme nts HEPATITIS A IgM (test code = 29252) NON-REACTIVE HEPATITIS B CORE IgM (test c ode = 4644) NON-REACTIVE HEPATITIS B SURF AG (test co de = 2739) NON-REACTIVE HEPATITIS C ANTIBODY (test c ode = 4675) NON-REACTIVE INTERPRETATION HEPATITIS A: (test code = 2552) (NOTE) INTERPRETATION HEPATITIS B: (test code = 19648) (NOTE) INTERPRETATION HEPATITIS C: (test code = 35525) (NOTE) ACUTE HEPATITIS [id number] 00:00:00* Test Item Value Reference Range Interpretation Comme nts HEPATITIS A IgM (test code = 06726) NON-REACTIVE HEPATITIS B CORE IgM (test c ode = 4644) NON-REACTIVE HEPATITIS B SURF AG (test co de = 2739) NON-REACTIVE HEPATITIS C ANTIBODY (test c ode = 4675) NON-REACTIVE INTERPRETATION HEPATITIS A: (test code = 2552) (NOTE) INTERPRETATION HEPATITIS B: (test code = 08050) (NOTE) INTERPRETATION HEPATITIS C: (test code = 77090) (NOTE) GC, AMPLIFIED, [id number] 00:00:00* Test Item Value Reference Range Interpretation Comme nts GONORRHEA, NAAT (test code = 02620) NEGATIVE GC, AMPLIFIED, [id number] 00:00:00* Test Item Value Reference Range Interpretation Comme nts GONORRHEA, NAAT (test code = 08116) NEGATIVE CHLAMYDIA, AMPLIFIED, [id number] 00:00:00* Test Item Value Reference Range Interpretation Comme nts CHLAMYDIA, NAAT (test code = 40536) POSITIVE CHLAMYDIA, AMPLIFIED, [id number] 00:00:00* Test Item Value Reference Range Interpretation Comme nts CHLAMYDIA, NAAT (test code = 57323) POSITIVE HIV AB/AG COMBO RFLX [id number] 00:00:00* Test Item Value Reference Range Interpretation Comme nts HIV 1/2 4TH GEN, RFLX CONF ( test code = 3514) NON-REACTIVE ACUTE HEPATITIS [id number] 00:00:00* Test Item Value Reference Range Interpretation Comme nts HEPATITIS A IgM (test code = 09523) NON-REACTIVE HEPATITIS B CORE IgM (test c ode = 4644) NON-REACTIVE HEPATITIS B SURF AG (test co de = 2739) NON-REACTIVE HEPATITIS C ANTIBODY (test c ode = 4675) NON-REACTIVE INTERPRETATION HEPATITIS A: (test code = 2552) (NOTE) INTERPRETATION HEPATITIS B: (test code = 13651) (NOTE) INTERPRETATION HEPATITIS C: (test code = 25259) (NOTE) HIV AB/AG COMBO RFLX [id number] 00:00:00* Test Item Value Reference Range Interpretation Comme nts HIV 1/2 4TH GEN, RFLX CONF ( test code = 3514) NON-REACTIVE HIV AB/AG COMBO RFLX [id number] 00:00:00* Test Item Value Reference Range Interpretation Comme nts HIV 1/2 4TH GEN, RFLX CONF ( test code = 3514) NON-REACTIVE GC, AMPLIFIED, [id number] 00:00:00* Test Item Value Reference Range Interpretation Comme nts GONORRHEA, NAAT (test code = 78748) NEGATIVE ACUTE HEPATITIS [id number] 00:00:00* Test Item Value Reference Range Interpretation Comme nts HEPATITIS A IgM (test code = 25422) NON-REACTIVE HEPATITIS B CORE IgM (test c ode = 4644) NON-REACTIVE HEPATITIS B SURF AG (test co de = 2739) NON-REACTIVE HEPATITIS C ANTIBODY (test c ode = 4675) NON-REACTIVE INTERPRETATION HEPATITIS A: (test code = 2552) (NOTE) INTERPRETATION HEPATITIS B: (test code = 13455) (NOTE) INTERPRETATION HEPATITIS C: (test code = 46835) (NOTE) ACUTE HEPATITIS [id number] 00:00:00* Test Item Value Reference Range Interpretation Comme nts HEPATITIS A IgM (test code = 93587) NON-REACTIVE HEPATITIS B CORE IgM (test c ode = 4644) NON-REACTIVE HEPATITIS B SURF AG (test co de = 2739) NON-REACTIVE HEPATITIS C ANTIBODY (test c ode = 4675) NON-REACTIVE INTERPRETATION HEPATITIS A: (test code = 2552) (NOTE) INTERPRETATION HEPATITIS B: (test code = 01459) (NOTE) INTERPRETATION HEPATITIS C: (test code = 59647) (NOTE) GC, AMPLIFIED, [id number] 00:00:00* Test Item Value Reference Range Interpretation Comme nts GONORRHEA, NAAT (test code = 66562) NEGATIVE GC, AMPLIFIED, [id number] 00:00:00* Test Item Value Reference Range Interpretation Comme nts GONORRHEA, NAAT (test code = 79126) NEGATIVE CHLAMYDIA, AMPLIFIED, [id number] 00:00:00* Test Item Value Reference Range Interpretation Comme nts CHLAMYDIA, NAAT (test code = 31956) POSITIVE CHLAMYDIA, AMPLIFIED, [id number] 00:00:00* Test Item Value Reference Range Interpretation Comme nts CHLAMYDIA, NAAT (test code = 78942) POSITIVE CHLAMYDIA, AMPLIFIED, [id number] 00:00:00* Test Item Value Reference Range Interpretation Comme nts CHLAMYDIA, NAAT (test code = 46002) POSITIVE leukocyte count, [id number] 15:42:00* Test Item Value Reference Range Interpretation Comme nts leukocyte count, blood (test code = 68) 9.7 X10E3/UL 3.4-10.8 [facility] [id number] 15:42:00* Test Item Value Reference Range Interpretation Comme nts hepatitis B surface antigen (test code = 79) Negative Negative [facility] [id number] 15:42:00* Test Item Value Reference Range Interpretation Comme nts Rh antibody (test code = 256) Negative Negative [facility] Centerblood glucose, 1 hour after 50 gm oral [id number] 15:42:00* Test Item Value Reference Range Interpretation Comme nts blood glucose, 1 hour after 50 gm oral glucose (test code = 1039) 111 mg/dL 65-139 [facility]HIV[facility]CMIA (Chemiluminescent Microparticle Immuno Assay) 2019-10-14 15:42:00* Test Item Value Reference Range Interpretation Comme nts HIV-CMIA (Chemiluminescent Microparticle Immuno Assay) (test code = 995050) Non Reactive Non Reactive [facility] Centerrapid plasma reagin antibody, ouack2390-20-00 15:42:00* Test Item Value Reference Range Interpretation Comme nts rapid plasma reagin antibody , serum (test code = 308) Non Reactive Non Reactive [facility] Centerrubella antibody, serum, [id number] 15:42:00* Test Item Value Reference Range Interpretation Comme nts rubella antibody, serum, IgG (test code = 81) 1.33 Immune >0.99 [facility] CenterRh vbibmxp5930-35-05 15:42:00* Test Item Value Reference Range Interpretation Comme nts Rh antigen (test code = 255) Positive [facility] CenterABO blood [id number] 15:42:00* Test Item Value Reference Range Interpretation Comme nts ABO blood group (test code = 116) A [facility] CenterNeisseria gonorrhoeae DNA [id number] 15:42:00* Test Item Value Reference Range Interpretation Comme nts Neisseria gonorrhoeae DNA pr obe (test code = 25681-5) Negative Negative [facility] Centerchlamydia DNA ecegl8666-12-07 15:42:00* Test Item Value Reference Range Interpretation Comme nts chlamydia DNA probe (test co de = 91666-9) Negative Negative [facility] Centerimmature granulocytes, percentage of total cells, blood 2019-10-14 15:42:00* Test Item Value Reference Range Interpretation Comme nts immature granulocytes, perce ntage of total cells, blood (test code = 400708) 0 % [facility] Centerbasophil count, inojlkla8900-17-00 15:42:00* Test Item Value Reference Range Interpretation Comme nts basophil count, absolute (te st code = 90110) 0.0 x10E3/uL 0.0-0.3 [facility] CenterEosinophil Absolute Ftaic5032-83-12 15:42:00* Test Item Value Reference Range Interpretation Comme nts Eosinophil Absolute Count (t est code = 520903) 0.0 X10E3/UL 0.0-0.4 [facility] Centermonocyte count, blood, qnxqkfjqx8325-21-92 15:42:00* Test Item Value Reference Range Interpretation Comme nts monocyte count, blood, autom ated (test code = 3076) 0.8 X10E3/UL 0.1-0.9 [facility] Centerlymphocyte count, blood, qtzmpajst6523-10-20 15:42:00* Test Item Value Reference Range Interpretation Comme nts lymphocyte count, blood, automated (test code = 3074) 1.2 X10E3/UL 0.7-3.1 [facility] CenterAbsolute Otybaopewrv8176-89-63 15:42:00* Test Item Value Reference Range Interpretation Comme nts Absolute Neutrophils (test c ode = 15495) 7.7 X10E3/UL 1.4-7.0 [facility]basophils as percent of blood nfzjjwqyst6705-22-25 15:42:00* Test Item Value Reference Range Interpretation Comme nts basophils as percent of bloo d leukocytes (test code = 2426) 0 % [facility] Centereosinophils as percent of blood rzvsiirnxc7515-77-80 15:42:00* Test Item Value Reference Range Interpretation Comme nts eosinophils as percent of bl ood leukocytes (test code = 4170) 0 % [facility] Centermonocytes as percent of blood haldtunuyr7285-92-71 15:42:00* Test Item Value Reference Range Interpretation Comme nts monocytes as percent of bloo d leukocytes (test code = 2421) 8 % [facility] Centerlymphocytes as percent of blood itmhlbqqyc3324-99-30 15:42:00* Test Item Value Reference Range Interpretation Comme nts lymphocytes as percent of bl ood leukocytes (test code = 317) 12 % [facility] Centerneutrophils as percent of blood sejzfkgzug0342-80-67 15:42:00* Test Item Value Reference Range Interpretation Comme nts neutrophils as percent of bl ood leukocytes (test code = 316) 80 % [facility] Centerplatelet icegu5009-21-46 15:42:00* Test Item Value Reference Range Interpretation Comme [facility] platelet count (test code = 66) 422 X10E3/UL 150-450 [facility] Centerred blood cell distribution ttqjq0290-92-60 15:42:00* Test Item Value Reference Range Interpretation Comme [facility] red blood cell distribution width (test code = 1030) 14.1 % 11.7-15.4 [facility] corpuscular hemoglobin concentration, EJS3088-05-07 15:42:00* Test Item Value Reference Range Interpretation Comme [facility] mean corpuscular hemoglobin concentration, RBC (test code = 1029) 32.3 G/DL 31.5-35.7 [facility] corpuscular hemoglobin, [id number] 15:42:00* Test Item Value Reference Range Interpretation Comme [facility] mean corpuscular hemoglobin, RBC (test code = 1031) 24.2 pg 26.6-33.0 L [facility] corpuscular volume, [id number] 15:42:00* Test Item Value Reference Range Interpretation Comme [facility] mean corpuscular volume, RBC (test code = 315) 75 fL 79-97 L [facility] Centerhematocrit, ivouj2223-54-87 15:42:00* Test Item Value Reference Range Interpretation Comme [facility] hematocrit, blood (test code = 64) 32.2 % 34.0-46.6 L [facility] Centerhemoglobin, czxjt6024-53-04 15:42:00* Test Item Value Reference Range Interpretation Comme nts hemoglobin, blood (test code = 65) 10.4 g/dL 11.1-15.9 L [facility] Centererythrocyte (RBC) vjklf0171-24-61 15:42:00* Test Item Value Reference Range Interpretation Comme nts erythrocyte (RBC) count (ruslan t code = 67) 4.30 X10E6/UL 3.77-5.28 [facility] Centerurine kegjlqm9345-69-38 15:14:00* Test Item Value Reference Range Interpretation Comme nts urine culture (test code = 13910) No growth [facility] CenterNeisseria gonorrhoeae DNA namnh6409-87-76 15:14:00* Test Item Value Reference Range Interpretation Comme nts Neisseria gonorrhoeae DNA pr obe (test code = 61511-7) Negative Negative [facility] Centerchlamydia DNA mppap1143-28-18 15:14:00* Test Item Value Reference Range Interpretation Comme [facility] chlamydia DNA probe (test co de = 62758-3) Negative Negative [facility] CenterVaginal Group B Strep by Real-Time [id number] 16:28:00 * Test Item Value Reference Range Interpretation Comme nts Vaginal Group B Strep by [place] l-Time PCR (test code = 127256) Negative Negative [facility] Centerurine frsxdby6462-77-79 16:27:00* Test Item Value Reference Range Interpretation Comme nts urine culture (test code = 42990) MUG [facility] Centerprotein, urine, semiquantitative (dipstick)2019-10-07 16:27:00* Test Item Value Reference Range Interpretation Comme nts protein, urine, semiquantita tive (dipstick) (test code = 1753-3) 33.6 [facility] Centercreatinine, random, yspkv4601-28-73 16:27:00* Test Item Value Reference Range Interpretation Comme nts creatinine, random, urine (t est code = 5167) 121.8 mg/dL [facility] Centeralanine aminotransferase (SGPT), btotp1178-38-20 15:59:00 * Test Item Value Reference Range Interpretation Comme nts alanine aminotransferase (SG PT), serum (test code = 40) 13 1/L 0-24 [facility] Centeraspartate aminotransferase (SGOT), gbido6458-84-62 15:59:00* Test Item Value Reference Range Interpretation Comme nts aspartate aminotransferase ( SGOT), serum (test code = 39) 16 1/L 0-40 [facility] CenterHIV-CMIA (Chemiluminescent Microparticle Immuno Assay) 2019-10-07 15:59:00* Test Item Value Reference Range Interpretation Comme nts HIV-CMIA (Chemiluminescent Microparticle Immuno Assay) (test code = 313032) Non Reactive Non Reactive [facility] Centerrapid plasma reagin antibody, txeya6451-34-73 15:59:00* Test Item Value Reference Range Interpretation Comme nts rapid plasma reagin antibody , serum (test code = 308) Non Reactive Non Reactive [facility] Centerimmature granulocytes, percentage of total cells, blood 2019-10-07 15:59:00* Test Item Value Reference Range Interpretation Comme nts immature granulocytes, perce ntage of total cells, blood (test code = 263133) 3 % [facility] Centerbasophil count, smwsdrxb9338-42-96 15:59:00* Test Item Value Reference Range Interpretation Comme nts basophil count, absolute (te st code = 73341) 0.0 x10E3/uL 0.0-0.3 [facility] CenterEosinophil Absolute Ywuwq4842-93-98 15:59:00* Test Item Value Reference Range Interpretation Comme nts Eosinophil Absolute Count (t est code = 648779) 0.1 X10E3/UL 0.0-0.4 [facility] Centermonocyte count, blood, cwbvteypc9149-51-47 15:59:00* Test Item Value Reference Range Interpretation Comme nts monocyte count, blood, autom ated (test code = 3076) 1.2 X10E3/UL 0.1-0.9 H [facility] Centerlymphocyte count, blood, upezifgld4210-90-21 15:59:00* Test Item Value Reference Range Interpretation Comme nts lymphocyte count, blood, automated (test code = 3074) 1.6 X10E3/UL 0.7-3.1 [facility] CenterAbsolute Uttkftisicz7278-95-71 15:59:00* Test Item Value Reference Range Interpretation Comme nts Absolute Neutrophils (test c ode = 24006) 9.4 X10E3/UL 1.4-7.0 H [facility] Centerbasophils as percent of blood llxteypttb3760-77-73 15:59:00* Test Item Value Reference Range Interpretation Comme nts basophils as percent of bloo d leukocytes (test code = 2426) 0 % [facility] Centereosinophils as percent of blood jhdozmkath5072-99-65 15:59:00* Test Item Value Reference Range Interpretation Comme nts eosinophils as percent of bl ood leukocytes (test code = 4170) 1 % [facility] Healthmonocytes as percent of blood dintpbmdcm9572-93-07 15:59:00* Test Item Value Reference Range Interpretation Comme nts monocytes as percent of bloo d leukocytes (test code = 2421) 10 % [facility] Centerlymphocytes as percent of blood hjttbfxkfp5538-91-20 15:59:00* Test Item Value Reference Range Interpretation Comme nts lymphocytes as percent of bl ood leukocytes (test code = 317) 13 % [facility] Centerneutrophils as percent of blood fahfoyzitd6234-91-33 15:59:00* Test Item Value Reference Range Interpretation Comme nts neutrophils as percent of bl ood leukocytes (test code = 316) 73 % [facility] Centerplatelet snied9695-87-05 15:59:00* Test Item Value Reference Range Interpretation Comme [facility] platelet count (test code = 66) 417 X10E3/UL 150-450 [facility] Centerred blood cell distribution gksmn0219-33-89 15:59:00* Test Item Value Reference Range Interpretation Comme [facility] red blood cell distribution width (test code = 1030) 14.2 % 11.7-15.4 [facility] corpuscular hemoglobin concentration, [id number] 15:59:00* Test Item Value Reference Range Interpretation Comme [facility] mean corpuscular hemoglobin concentration, RBC (test code = 1029) 31.0 G/DL 31.5-35.7 L [facility] corpuscular hemoglobin, [id number] 15:59:00* Test Item Value Reference Range Interpretation Comme [facility] mean corpuscular hemoglobin, RBC (test code = 1031) 24.4 pg 26.6-33.0 L [facility]mean corpuscular volume, [id number] 15:59:00* Test Item Value Reference Range Interpretation Comme [facility] mean corpuscular volume, RBC (test code = 315) 79 fL 79-97 [facility] Centerhematocrit, lmqqg0198-18-37 15:59:00* Test Item Value Reference Range Interpretation Comme [facility] hematocrit, blood (test code = 64) 34.8 % 34.0-46.6 [facility] Centerhemoglobin, nlmrk7818-50-19 15:59:00* Test Item Value Reference Range Interpretation Comme [facility] hemoglobin, blood (test code = 65) 10.8 g/dL 11.1-15.9 L [facility] Centererythrocyte (RBC) rqdph1443-22-72 15:59:00* Test Item Value Reference Range Interpretation Comme [facility] erythrocyte (RBC) count (ruslan t code = 67) 4.42 X10E6/UL 3.77-5.28 [facility] Centerleukocyte count, cdraf0411-94-43 15:59:00* Test Item Value Reference Range Interpretation Comme [facility] leukocyte count, blood (test code = 68) 12.6 X10E3/UL 3.4-10.8 H [facility] CenterHerpes Simplex Virus Kpuzizk1372-47-39 14:07:37* Test Item Value Reference Range Interpretation Comme [facility] Herpes Simplex Virus Genital (test code = 4258) no [facility] CenterPOCT URINALYSIS W/O SPECIFIC [id number] 23:11:00* Test Item Value Reference Range Interpretation Comme nts POCT PH U (test code = 3254) n/a 5-8 POCT U LEUK EST (test code = 3263) n/a Negative - N egative POCT U NIT (test code = 3262) n/a Negative - Negati ve POCT U PROT (test code = 3259) neg Negative - Negat devang POCT U GLU (test code = 3256) neg Negative - Negati ve POCT U KETONE (test code = 3258) n/a Negative - Neg ative POCT U BLD (test code = 3257) n/a Negative - Negati ve Lab Interpretation (test cod e = 65832-8) Normal [facility]<14 WEEKS US [id number] 17:45:03Addendum by Guerrero Whitaker MD on 04/16/2019 12:47 PMLimited USG for dating and viability:?Single live IUP measured 10 5/7 weeks.?Will date by this USG unless clinically indicated otherwise Casie Whitaker MD?04/16/2019?12:44 PM Limited USG for dating and viability:?Single live IUP uhqjbtte99 5/7 weeks.?Will date by this USG unless clinically indicated otherwise Guerrero Whitaker MD?04/16/2019?12:44 PMUnTexas [facility] WoodlandsCB WITH DIFFERENTIAL 2019-04-14 21:44:00* Test Item Value Reference Range Interpretation Comme nts WBC (test code = 6690-2) See_Comment [Automated messa ge] The system which generated this result transmitted reference range: 4.50 - 13.50 10*3/?L. The reference range was not used to interpret this result as normal/abnormal. RBC (test code = 789-8) See_Comment [Automated messa ge] The system which generated this result transmitted reference range: 4.10 - 5.10 10*6/?L. The reference range was not used to interpret this result as normal/abnormal. HGB (test code = 718-7) 12.5 g/dL 12-16 HCT (test code = 4544-3) 36.7 % 36-45 MCV (test code = 787-2) 82.1 fL 78-95 MCH (test code = 785-6) 28.0 pg 26-32 MCHC (test code = 786-4) 34.1 g/dL 32-36 RDW-SD (test code = 02751-4) 37.2 fL 38.5-49 L RDW-CV (test code = 788-0) 12.5 % 11.5-14 PLT (test code = 777-3) See_Comment H [Automated messa ge] The system which generated this result transmitted reference range: 135 - 361 10*3/?L. The reference range was not used to interpret this result as normal/abnormal. MPV (test code = 10784-5) 8.8 fL 9.4-13.3 L NRBC/100 WBC (test code = 1567845817) See_Comment [Automated me ssage] The system which generated this result transmitted reference range: 0.0 - 10.0 /100 WBCs. The reference range was not used to interpret this result as normal/abnormal. NRBC x10^3 (test code = 1864043979) <0.01 See_Comment [Automated messa ge] The system which generated this result transmitted reference range: 10*3/?L. The reference range was not used to interpret this result as normal/abnormal. GRAN MAT (NEUT) % (test code = 770-8) 71.3 % IMM GRAN % (test code = 1527696289) 0.40 % LYMPH % (test code = 736-9) 19.6 % MONO % (test code = 5905-5) 7.8 % EOS % (test code = 713-8) 0.5 % BASO % (test code = 706-2) 0.4 % GRAN MAT x10^3(ANC) (test code = 3008963586) 5.21 10*3/uL 1.5-10.3 IMM GRAN x10^3 (test code = 1854558569) 0.03 10*3/uL 0-0.06 LYMPH x10^3 (test code = 731-0) 1.43 10*3/uL 0.7-7.4 MONO x10^3 (test code = 742-7) 0.57 10*3/uL 0-0.5 H EOS x10^3 (test code = 711-2) 0.04 10*3/uL 0-0.4 BASO x10^3 (test code = 704-7) 0.03 10*3/uL 0-0.1 Lab Interpretation (test code = 68521-8) Abnormal [facility]<14 WEEKS US [id number] 23:55:04Limited USG for dating due to irregular periods:?transabdominal USG showed intrauterine gestationalsac with yolk sac and no pole Guerrero Whitaker MD?03/20/2019?6:54 PMUnTexas Children's Hospital The WoodlandsGALV ONLY - VAGINAL PATHOGENS BY DNA [id number] 17:42:00* Test Item Value Reference Range Interpretation Comme nts Trichomonas vaginalis (test code = 3687108444) Negative Negative Gardnerella vaginalis (test code = 6513003440) Negative Negative Susan species (test code = 8001615795) Negative Negative Lab Interpretation (test cod e = 96130-1) Normal [facility] CenterGC & CHLAMYDIA AMPLIFIED [id number] 17:25:00* Test Item Value Reference Range Interpretation Comme nts Lab Interpretation (test cod e = 42210-4) Normal [facility] CenterADC / L[facility] - DRUG SCREEN [id number] 02:43:00* Test Item Value Reference Range Interpretation Comme nts BENZO U (test code = 4411950367) Negative Negative ELVIS U (test code = 2577797969) Negative Negative AMPHET (test code = 2687123951) Negative Negative THC (test code = 8187152372) Negative Negative METHADONE (test code = 6175073889) Negative Negative Meth U (test code = 8154715381) Negative Negative OPIATES (test code = 7207082166) Negative Negative Cocaine Metabolite (test code = 0611108761) Negative Negative PROPOXY (test code = 5016367153) Negative Negative Tric U (test code = 0061965822) Negative Negative PCP (test code = 4449879990) Negative Negative OXYCOD (test code = 8248172611) Negative Negative ARNULFO (test code = ARNULFO) Urine Drug [...] employment testing, legal testing). Lab Interpretation (test code = 13582-1) Normal [facility] CenterTOTAL BETA HCG [id number] 17:07:00* Test Item Value Reference Range Interpretation Comme nts BETA HCG (test code = 3900746021) See_Comment [Automated [facility]] The system which generated this result transmitted reference range: Non- female and male patients: <5 mIU/mL. The reference range was not used to interpret this result as normal/abnormal. ARNULFO (test code = ARNULFO) Gestational Age?Range (mIU/mL)1-10?Weeks?4 0-19647093-92 Weeks?99154-90481998 -22 Weeks?7480-10814511- 40 Weeks?1531-411836Pwm tin has been reported to cause a negative bias, interpret results relative to patient's use of biotin. [facility] URINALYSIS W/O SPECIFIC [id number] 14:40:00* Test Item Value Reference Range Interpretation Comme nts POCT PH U (test code = 3254) N/A 5-8 POCT U LEUK EST (test code = 3263) N/A Negative - Negative POCT U NIT (test code = 3262) N/A Negative - Negati ve POCT U PROT (test code = 3259) Negative Negative - Negat devang POCT U GLU (test code = 3256) Negative Negative - Negati ve POCT U KETONE (test code = 3258) N/A Negative - Neg ative POCT U BLD (test code = 3257) N/A Negative - Negati ve [facility] CenterPOCT [id number] 14:30:00* Test Item Value Reference Range Interpretation Comme nts POCT PREG (test code = 1605) Positive On board controls acceptable with C Line (test code = 3574) Yes POCT PREG LOT # (test code = 3575) POCT PREG TEST DATE ( test code = 3576) [facility] CenterLIPID [id number] 00:00:00* Test Item Value Reference Range Interpretation Comme nts CHOLESTEROL (test code = 2210) 151 MG/DL TRIGLYCERIDES (test code = 2232) 101 MG/DL HDL CHOLESTEROL (test code = 2220) 52 MG/DL CALC LDL CHOL (test code = 2237) 79 MG/DL RISK RATIO LDL/HDL (test cod e = 2238) 1.52 RATIO LIPID [id number] 00:00:00* Test Item Value Reference Range Interpretation Comme nts CHOLESTEROL (test code = 2210) 151 MG/DL TRIGLYCERIDES (test code = 2232) 101 MG/DL HDL CHOLESTEROL (test code = 2220) 52 MG/DL CALC LDL CHOL (test code = 2237) 79 MG/DL RISK RATIO LDL/HDL (test cod e = 2238) 1.52 RATIO BASIC METABOLIC [id number] 00:00:00* Test Item Value Reference Range Interpretation Comme nts GLUCOSE (test code = 2217) 96 MG/DL BUN (test code = 2208) 9 MG/DL CREATININE (test code = 2214) 0.45 MG/DL eGFR AMER. (test code = 28908) (NOTE) ML/MIN/1.73 eGFR NON- AMER. (test code = 98052) NO CALC ML/MIN/1.73 SODIUM (test code = 2231) 142 MEQ/L POTASSIUM (test code = 2228) 4.1 MEQ/L CHLORIDE (test code = 2215) 103 MEQ/L CARBON DIOXIDE (test code = 2206) 26 MEQ/L CALCIUM (test code = 2209) 8.6 MG/DL BASIC METABOLIC [id number] 00:00:00* Test Item Value Reference Range Interpretation Comme nts GLUCOSE (test code = 2217) 96 MG/DL BUN (test code = 2208) 9 MG/DL CREATININE (test code = 2214) 0.45 MG/DL eGFR AMER. (test code = 64984) (NOTE) ML/MIN/1.73 eGFR NON- AMER. (test code = 67225) NO CALC ML/MIN/1.73 SODIUM (test code = 2231) 142 MEQ/L POTASSIUM (test code = 2228) 4.1 MEQ/L CHLORIDE (test code = 2215) 103 MEQ/L CARBON DIOXIDE (test code = 2206) 26 MEQ/L CALCIUM (test code = 2209) 8.6 MG/DL LIPID [id number] 00:00:00* Test Item Value Reference Range Interpretation Comme nts CHOLESTEROL (test code = 2210) 151 MG/DL TRIGLYCERIDES (test code = 2232) 101 MG/DL HDL CHOLESTEROL (test code = 2220) 52 MG/DL CALC LDL CHOL (test code = 2237) 79 MG/DL RISK RATIO LDL/HDL (test cod e = 2238) 1.52 RATIO LIPID [id number] 00:00:00* Test Item Value Reference Range Interpretation Comme nts CHOLESTEROL (test code = 2210) 151 MG/DL TRIGLYCERIDES (test code = 2232) 101 MG/DL HDL CHOLESTEROL (test code = 2220) 52 MG/DL CALC LDL CHOL (test code = 2237) 79 MG/DL RISK RATIO LDL/HDL (test cod e = 2238) 1.52 RATIO BASIC METABOLIC [id number] 00:00:00* Test Item Value Reference Range Interpretation Comme nts GLUCOSE (test code = 2217) 96 MG/DL BUN (test code = 2208) 9 MG/DL CREATININE (test code = 2214) 0.45 MG/DL eGFR AMER. (test code = 45675) (NOTE) ML/MIN/1.73 eGFR NON- AMER. (test code = 98829) NO CALC ML/MIN/1.73 SODIUM (test code = 2231) 142 MEQ/L POTASSIUM (test code = 2228) 4.1 MEQ/L CHLORIDE (test code = 2215) 103 MEQ/L CARBON DIOXIDE (test code = 2206) 26 MEQ/L CALCIUM (test code = 2209) 8.6 MG/DL BASIC METABOLIC [id number] 00:00:00* Test Item Value Reference Range Interpretation Comme nts GLUCOSE (test code = 2217) 96 MG/DL BUN (test code = 2208) 9 MG/DL CREATININE (test code = 2214) 0.45 MG/DL eGFR AMER. (test code = 72417) (NOTE) ML/MIN/1.73 eGFR NON- AMER. (test code = 99257) NO CALC ML/MIN/1.73 SODIUM (test code = 2231) 142 MEQ/L POTASSIUM (test code = 2228) 4.1 MEQ/L CHLORIDE (test code = 2215) 103 MEQ/L CARBON DIOXIDE (test code = 2206) 26 MEQ/L CALCIUM (test code = 2209) 8.6 MG/DL LIPID [id number] 00:00:00* Test Item Value Reference Range Interpretation Comme nts CHOLESTEROL (test code = 2210) 151 MG/DL TRIGLYCERIDES (test code = 2232) 101 MG/DL HDL CHOLESTEROL (test code = 2220) 52 MG/DL CALC LDL CHOL (test code = 2237) 79 MG/DL RISK RATIO LDL/HDL (test cod e = 2238) 1.52 RATIO BASIC METABOLIC [id number] 00:00:00* Test Item Value Reference Range Interpretation Comme nts GLUCOSE (test code = 2217) 96 MG/DL BUN (test code = 2208) 9 MG/DL CREATININE (test code = 2214) 0.45 MG/DL eGFR AMER. (test code = 39950) (NOTE) ML/MIN/1.73 eGFR NON- AMER. (test code = 53952) NO CALC ML/MIN/1.73 SODIUM (test code = 2231) 142 MEQ/L POTASSIUM (test code = 2228) 4.1 MEQ/L CHLORIDE (test code = 2215) 103 MEQ/L CARBON DIOXIDE (test code = 2206) 26 MEQ/L CALCIUM (test code = 2209) 8.6 MG/DL LIPID [id number] 00:00:00* Test Item Value Reference Range Interpretation Comme nts CHOLESTEROL (test code = 2210) 151 MG/DL TRIGLYCERIDES (test code = 2232) 101 MG/DL HDL CHOLESTEROL (test code = 2220) 52 MG/DL CALC LDL CHOL (test code = 2237) 79 MG/DL RISK RATIO LDL/HDL (test cod e = 2238) 1.52 RATIO BASIC METABOLIC [id number] 00:00:00* Test Item Value Reference Range Interpretation Comme nts GLUCOSE (test code = 2217) 96 MG/DL BUN (test code = 2208) 9 MG/DL CREATININE (test code = 2214) 0.45 MG/DL eGFR AMER. (test code = 02328) (NOTE) ML/MIN/1.73 eGFR NON- AMER. (test code = 35372) NO CALC ML/MIN/1.73 SODIUM (test code = 2231) 142 MEQ/L POTASSIUM (test code = 2228) 4.1 MEQ/L CHLORIDE (test code = 2215) 103 MEQ/L CARBON DIOXIDE (test code = 2206) 26 MEQ/L CALCIUM (test code = 2209) 8.6 MG/DL LIPID [id number] 00:00:00* Test Item Value Reference Range Interpretation Comme nts CHOLESTEROL (test code = 2210) 151 MG/DL TRIGLYCERIDES (test code = 2232) 101 MG/DL HDL CHOLESTEROL (test code = 2220) 52 MG/DL CALC LDL CHOL (test code = 2237) 79 MG/DL RISK RATIO LDL/HDL (test cod e = 2238) 1.52 RATIO BASIC METABOLIC [id number] 00:00:00* Test Item Value Reference Range Interpretation Comme nts GLUCOSE (test code = 2217) 96 MG/DL BUN (test code = 2208) 9 MG/DL CREATININE (test code = 2214) 0.45 MG/DL eGFR AMER. (test code = 73942) (NOTE) ML/MIN/1.73 eGFR NON- AMER. (test code = 12439) NO CALC ML/MIN/1.73 SODIUM (test code = 2231) 142 MEQ/L POTASSIUM (test code = 2228) 4.1 MEQ/L CHLORIDE (test code = 2215) 103 MEQ/L CARBON DIOXIDE (test code = 2206) 26 MEQ/L CALCIUM (test code = 2209) 8.6 MG/DL LIPID [id number] 00:00:00* Test Item Value Reference Range Interpretation Comme nts CHOLESTEROL (test code = 2210) 151 MG/DL TRIGLYCERIDES (test code = 2232) 101 MG/DL HDL CHOLESTEROL (test code = 2220) 52 MG/DL CALC LDL CHOL (test code = 2237) 79 MG/DL RISK RATIO LDL/HDL (test cod e = 2238) 1.52 RATIO LIPID [id number] 00:00:00* Test Item Value Reference Range Interpretation Comme nts CHOLESTEROL (test code = 2210) 151 MG/DL TRIGLYCERIDES (test code = 2232) 101 MG/DL HDL CHOLESTEROL (test code = 2220) 52 MG/DL CALC LDL CHOL (test code = 2237) 79 MG/DL RISK RATIO LDL/HDL (test cod e = 2238) 1.52 RATIO BASIC METABOLIC [id number] 00:00:00* Test Item Value Reference Range Interpretation Comme nts GLUCOSE (test code = 2217) 96 MG/DL BUN (test code = 2208) 9 MG/DL CREATININE (test code = 2214) 0.45 MG/DL eGFR AMER. (test code = 48937) (NOTE) ML/MIN/1.73 eGFR NON- AMER. (test code = 94045) NO CALC ML/MIN/1.73 SODIUM (test code = 2231) 142 MEQ/L POTASSIUM (test code = 2228) 4.1 MEQ/L CHLORIDE (test code = 2215) 103 MEQ/L CARBON DIOXIDE (test code = 2206) 26 MEQ/L CALCIUM (test code = 2209) 8.6 MG/DL BASIC METABOLIC [id number] 00:00:00* Test Item Value Reference Range Interpretation Comme nts GLUCOSE (test code = 2217) 96 MG/DL BUN (test code = 2208) 9 MG/DL CREATININE (test code = 2214) 0.45 MG/DL eGFR AMER. (test code = 45001) (NOTE) ML/MIN/1.73 eGFR NON- AMER. (test code = 90098) NO CALC ML/MIN/1.73 SODIUM (test code = 2231) 142 MEQ/L POTASSIUM (test code = 2228) 4.1 MEQ/L CHLORIDE (test code = 2215) 103 MEQ/L CARBON DIOXIDE (test code = 2206) 26 MEQ/L CALCIUM (test code = 2209) 8.6 MG/DL LIPID [id number] 00:00:00* Test Item Value Reference Range Interpretation Comme nts CHOLESTEROL (test code = 2210) 151 MG/DL TRIGLYCERIDES (test code = 2232) 101 MG/DL HDL CHOLESTEROL (test code = 2220) 52 MG/DL CALC LDL CHOL (test code = 2237) 79 MG/DL RISK RATIO LDL/HDL (test cod e = 2238) 1.52 RATIO BASIC METABOLIC [id number] 00:00:00* Test Item Value Reference Range Interpretation Comme nts GLUCOSE (test code = 2217) 96 MG/DL BUN (test code = 2208) 9 MG/DL CREATININE (test code = 2214) 0.45 MG/DL eGFR AMER. (test code = 49313) (NOTE) ML/MIN/1.73 eGFR NON- AMER. (test code = 03555) NO CALC ML/MIN/1.73 SODIUM (test code = 2231) 142 MEQ/L POTASSIUM (test code = 2228) 4.1 MEQ/L CHLORIDE (test code = 2215) 103 MEQ/L CARBON DIOXIDE (test code = 2206) 26 MEQ/L CALCIUM (test code = 2209) 8.6 MG/DL LIPID [id number] 00:00:00* Test Item Value Reference Range Interpretation Comme nts CHOLESTEROL (test code = 2210) 151 MG/DL TRIGLYCERIDES (test code = 2232) 101 MG/DL HDL CHOLESTEROL (test code = 2220) 52 MG/DL CALC LDL CHOL (test code = 2237) 79 MG/DL RISK RATIO LDL/HDL (test cod e = 2238) 1.52 RATIO LIPID [id number] 00:00:00* Test Item Value Reference Range Interpretation Comme nts CHOLESTEROL (test code = 2210) 151 MG/DL TRIGLYCERIDES (test code = 2232) 101 MG/DL HDL CHOLESTEROL (test code = 2220) 52 MG/DL CALC LDL CHOL (test code = 2237) 79 MG/DL RISK RATIO LDL/HDL (test cod e = 2238) 1.52 RATIO BASIC METABOLIC [id number] 00:00:00* Test Item Value Reference Range Interpretation Comme nts GLUCOSE (test code = 2217) 96 MG/DL BUN (test code = 2208) 9 MG/DL CREATININE (test code = 2214) 0.45 MG/DL eGFR AMER. (test code = 51383) (NOTE) ML/MIN/1.73 eGFR NON- AMER. (test code = 86800) NO CALC ML/MIN/1.73 SODIUM (test code = 2231) 142 MEQ/L POTASSIUM (test code = 2228) 4.1 MEQ/L CHLORIDE (test code = 2215) 103 MEQ/L CARBON DIOXIDE (test code = 2206) 26 MEQ/L CALCIUM (test code = 2209) 8.6 MG/DL BASIC METABOLIC [id number] 00:00:00* Test Item Value Reference Range Interpretation Comme nts GLUCOSE (test code = 2217) 96 MG/DL BUN (test code = 2208) 9 MG/DL CREATININE (test code = 2214) 0.45 MG/DL eGFR AMER. (test code = 57727) (NOTE) ML/MIN/1.73 eGFR NON- AMER. (test code = 27191) NO CALC ML/MIN/1.73 SODIUM (test code = 2231) 142 MEQ/L POTASSIUM (test code = 2228) 4.1 MEQ/L CHLORIDE (test code = 2215) 103 MEQ/L CARBON DIOXIDE (test code = 2206) 26 MEQ/L CALCIUM (test code = 2209) 8.6 MG/DL
--- NOTE | 2023-12-08 15:15 | RAD REPORT ---
EXAM DESCRIPTION: US - Transvaginal OB - 12/08/2023 3:05 pm CLINICAL HISTORY: PAIN PREG COMPARISON: Transvaginal OB dated 03/20/2019 FINDINGS: A single gestational sac is seen within the uterus. The shape of the sac is within normal limits for gestational age. Within the sac is a single pole with crown-rump length of 5 mm, cor relating to estimated gestational age of 6 weeks 2 days. Estimated date of delivery is 07/31/2024. Heart rate is 113 BPM, normal. The placenta is not yet developed due to early gestational age. The maternal adnexa and ovaries are within normal limits. Normal Doppler blood flow was demonstrated to both ovaries. 4 cm left ovarian cyst. IMPRESSION: Single live early intrauterine gestation with estimated gestational age of 6 weeks and 2 days, JONAS 07/31/2024. 4 cm left ovarian cyst.
[2023-12-08 16:38] LABS: Absolute Basophils 0.1 K/uL (0-0.5); Absolute Eosinophils 0.1 K/uL (0-0.5); Absolute Lymphocytes (CBC) 1.8 K/uL (0.7-4.9); Absolute Monocytes 0.6 K/uL (0.1-1.3); Absolute Neutrophil 5.8 K/uL (1.8-8.0); Basophils % 0.6 % (0-1.3); Eosinophils % 0.6 % (0-4.4); Hematocrit 39.9 % (36.0-45.0); Hemoglobin 13.3 g/dL (12.0-15.0); Lymphocytes % 21.3 % (15.3-44.8); MCH 28.3 pg (27.0-35.0); MCHC 33.2 g/dL (32.0-36.0); MCV 85.1 fL (80-100); MPV 7.1 fL (7.6-11.3); Neutrophils % 70.5 % (41.7-73.7); Nucleated Red Blood Cells % 0.1 % (0-0); Platelets 478 thou/uL (152-406); Red Cell Distribution Width 13.1 % (12.1-15.2)
[2023-12-08 16:38] LABS: Specific Gravity 1.014 (1.005-1.030)
[2023-12-08 16:45] LABS: Specific Gravity 1.014 (1.005-1.030); Sqamous Epithelial <5 /HPF (None Seen); Urine Bacteria None Seen /HPF (<20); Urine Bilirubin NEGATIVE (Negative); Urine Blood Negative (Negative); Urine Clarity Turbid (Clear); Urine Color Light-Yellow (Yellow); Urine Culture Reflex Order NOT NEEDED; Urine Glucose NEGATIVE (Negative); Urine Ketones TRACE (Negative); Urine Microscopic Reflex YN ORDER UMIC; Urine Nitrite NEGATIVE (Negative); Urine Protein NEGATIVE (Negative); Urine RBC <5 /HPF (None Seen); Urine Urobilinogen Normal (Normal); Urine WBC <5 /HPF (<5); Urine pH 6.5 (5.0-7.0)
[2023-12-08 17:08] LABS: Albumin 3.4 g/dL (3.4-5.0); Albumin/Globulin Ratio 0.9 (1.1-1.8); Anion Gap 7.7 mEq/L (5.0-15.0); Bilirubin Total 0.5 mg/dL (0.2-1.0); Globulin 3.8 g/dL (2.3-3.5); Potassium 3.7 mEq/L (3.5-5.1); Protein, Total 7.2 g/dL (6.4-8.2)
--- NOTE | 2023-12-08 17:19 | ER ---
Nurse's Notes [facility] Name: Altagracia Yu Age: 18 yrs Sex: Female : 2005 Arrival Date: 12/08/2023 Time: 13:41 Bed 10 Private MD: Diagnosis: ;Vomiting;Unspecified ovarian cyst, left side Presentation: 12/07 13:49 Chief complaint: EMS states: toned out to patient home for N/V since yesterday. Found ld1 out Friday she was . ANURAG lower abdominal pain. Coronavirus screen: At this time, the client does not indicate any symptoms associated with coronavirus-19. Ebola Screen: No symptoms or risks identified at this time. Risk Assessment: Do you want to hurt yourself or someone else? Patient reports no desire to harm self or others. Onset of symptoms was December 08, 2023 at 13:50. 13:49 Method Of Arrival: EMS: [facility] ld1 13:49 Acuity: KARMEN 3 ld1 13:50 Initial Sepsis Screen: Does the patient meet any 2 criteria? No. Patient's initial ld1 sepsis screen is negative. Does the patient have a suspected source of infection? No. Patient's initial sepsis screen is negative. Triage Assessment: 13:50 General: Appears in no apparent distress. comfortable, Behavior is calm, cooperative, ld1 appropriate for age. Pain: Complains of pain in abdomen Pain does not radiate. Pain currently is 10 out of 10 on a pain scale. Quality of pain is described as throbbing, Pain began suddenly, Is continuous. EENT: No signs and/or symptoms were reported regarding the EENT system. Neuro: Level of Consciousness is awake, alert, obeys commands, Oriented to person, place, time, situation. Cardiovascular: Capillary refill < 3 seconds Patient's skin is warm and dry. Respiratory: Airway is patent Respiratory effort is even, unlabored. GI: Abdomen is round non-distended, Reports lower abdominal pain, nausea, vomiting. : No signs and/or symptoms were reported regarding the genitourinary system. Derm: No signs and/or symptoms reported regarding the dermatologic system. Musculoskeletal: No signs and/or symptoms reported regarding the musculoskeletal system. 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 - Infectious Disease History:: Denies. - Social history:: Smoking status: Patient denies any tobacco usage or history of. Screenin:22 [facility] ED Fall Risk Assessment (Adult) History of falling in the last 3 months, ld1 including since admission No falls in past 3 months (0 pts). [facility] ED Fall Risk Assessment (Adult) History of falling in the last 3 months, including since admission No falls in past 3 months (0 pts) Confusion or Disorientation No (0 pts) Intoxicated or Sedated No (0 pts) Impaired Gait No (0 pts) Mobility Assist Device Used No (0 pt). Abuse screen: Denies threats or abuse. Nutritional screening: No deficits noted. Tuberculosis screening: No symptoms or risk factors identified. Assessment: 17:34 General: Appears comfortable, obese, well developed, well nourished, Behavior is calm, ld1 cooperative, appropriate for age, Reports n/v since yesterday. Positive home test on Friday. Pain: Denies pain. Neuro: Level of Consciousness is awake, alert, obeys commands, Oriented to person, place, time, situation, Appropriate for age. Cardiovascular: Capillary refill < 3 seconds Patient's skin is warm and dry. Respiratory: Airway is patent Respiratory effort is even, unlabored, Respiratory pattern is regular, symmetrical. GI: Reports nausea, vomiting, since yesterday. : No signs and/or symptoms were reported regarding the genitourinary system. EENT: No signs and/or symptoms were reported regarding the EENT system. Derm: Skin is intact, is healthy with good turgor, Skin is pink, warm \T\ dry. Musculoskeletal: No signs and/or symptoms reported regarding the musculoskeletal system. Vital Signs: 13:50 BP 118 / 80; Pulse 70; Resp 18; Temp 97.6(TE); Pulse Ox 99% on R/A; Weight 95.25 kg; ld1 Height 5 ft. 4 in. ; Pain 10/10; 16:30 BP 109 / 65; Pulse 76; Resp 16; Pulse Ox 100% on R/A; ld1 16:30 BP 119 / 45; Pulse 69; Resp 18; Temp 98.4(O); Pulse Ox 100% on R/A; ld1 13:50 Body Mass Index 36.04 (95.25 kg, 162.56 cm) ld1 13:50 Pain Scale: Adult ld1 ED Course: 13:44 Patient arrived in ED. mg5 13:49 Reid Oneil MD is Attending Physician. rn 13:50 Triage completed. ld1 13:50 Arm band placed on right wrist. ld1 13:53 Attending Physician role handed off by Reid Oneil MD ms3 13:53 José Aponte DO is Attending Physician. ms3 15:02 Patient's name was called from ER lobby. No response. Unable to locate patient. Will as6 disposition as left without being seen by a provider. 15:07 Pelvis Complete In Process Unspecified. EDMS 15:07 Transvaginal OB In Process Unspecified. EDMS 15:51 Mary Kay Aponte, KATELYN is Primary Nurse. ld1 16:23 CBC with Diff Sent. ld1 16:23 CMP Sent. ld1 16:23 Test, Urine Sent. ld1 16:23 Urinalysis w/ reflexes Sent. ld1 16:23 Initial lab(s) drawn, by dc, sent to lab. Urine collected: clean catch specimen, clear. ld1 Inserted saline lock: 22 gauge in right antecubital area, using aseptic technique. 16:37 Quantitative Hcg Sent. ld1 16:37 CBC with Diff Sent. ld1 16:37 CMP Sent. ld1 17:22 Patient has correct armband on for positive identification. Bed in low position. Call ld1 light in reach. Side rails up X2. Provided Education on: POC. Verbalized understanding.. 17:23 No provider procedures requiring assistance completed. ld1 17:37 IV discontinued, intact, bleeding controlled, No redness/swelling at site. Pressure ld1 dressing applied. Administered Medications: No medications were administered Medication: 17:23 VIS not applicable for this client. ld1 Outcome: 17:18 Discharge ordered by . ms3 17:37 Discharged to home ambulatory, ld1 17:37 Condition: stable 17:37 Condition: stable 17:37 Discharge instructions given to patient, Instructed on discharge instructions, follow up and referral plans. Demonstrated understanding of instructions, follow-up care, 17:38 Patient left the ED. ld1 Signatures: Dispatcher [employer] EDMS Reid Oneil MD MD rn Aponte, DO GARETH Kumar ms3 Mary Kay Aponte RN RN ld1 Parviz Nair RN RN as6 Shabnam Kaufman 5
--- NOTE | 2023-12-08 17:19 | EDPHYS ---
Physician Documentation [facility] Name: Altagracia Yu Age: 18 yrs Sex: Female : 2005 Arrival Date: 12/08/2023 Time: 13:41 Bed 10 Private MD: ED Physician José Aponte HPI: 12/07 13:53 This 18 yrs old Female presents to ER via EMS with complaints of Vomiting. ms3 13:53 18-year-old female with past medical history of ADHD, anxiety presents to the emergency ms3 department via [facility] for lower abdominal pain that began this morning. Patient notes she has had nausea and vomiting that began yesterday. Patient had a positive urine test 2 days prior to arrival. Patient is a G2, P1. Patient rates her lower abdominal pain a 05/27. 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 - Infectious Disease History:: Denies. - Social history:: Smoking status: Patient denies any tobacco usage or history of. ROS: 13:53 Constitutional: Negative for fever, and chills. Cardiovascular: Negative for chest ms3 pain, and palpitations. Respiratory: Negative for shortness of breath, cough, wheezing, and pleuritic chest pain, MS/Extremity: Negative for injury and deformity, Skin: Negative for injury, rash, and discoloration, 13:53 Abdomen/GI: Positive for abdominal pain, nausea and vomiting, Exam: 13:53 Constitutional: This is a well developed, well nourished patient who is awake, alert, ms3 and in no acute distress. Neck: Trachea midline, no cervical lymphadenopathy. Supple, full range of motion without nuchal rigidity, or vertebral point tenderness. No Meningismus. Chest/axilla: Normal chest wall appearance and motion. Nontender with no deformity. Cardiovascular: Regular rate and rhythm with a normal S1 and S2. No gallops, murmurs, or rubs. Normal PMI, no JVD. No pulse deficits. Respiratory: Lungs have equal breath sounds bilaterally, clear to auscultation and percussion. No rales, rhonchi or wheezes noted. No increased work of breathing, no retractions or nasal flaring. 13:53 Abdomen/GI: Inspection: abdomen appears normal, Bowel sounds: normal, Palpation: moderate abdominal tenderness, in the right lower quadrant and left lower quadrant, Vital Signs: 13:50 BP 118 / 80; Pulse 70; Resp 18; Temp 97.6(TE); Pulse Ox 99% on R/A; Weight 95.25 kg; ld1 Height 5 ft. 4 in. ; Pain 10/10; 16:30 BP 109 / 65; Pulse 76; Resp 16; Pulse Ox 100% on R/A; ld1 16:30 BP 119 / 45; Pulse 69; Resp 18; Temp 98.4(O); Pulse Ox 100% on R/A; ld1 13:50 Body Mass Index 36.04 (95.25 kg, 162.56 cm) ld1 13:50 Pain Scale: Adult ld1 MDM: 13:49 Patient medically screened. rn 13:53 Differential diagnosis: Nonspecific abd pain, Ectopic versus . ms3 20:28 Data reviewed: vital signs, nurses notes, lab test result(s), radiologic studies, ms3 ultrasound, and as a result, I will discharge patient. Counseling: I had a detailed discussion with the patient and/or guardian regarding the historical points, exam findings, and any diagnostic results supporting the discharge/admit diagnosis, lab results, radiology results, the need for outpatient follow up, to return to the emergency department if symptoms worsen or persist or if there are any questions or concerns that arise at home. Special discussion: Based on the patient's Hx, exam, and Dx evaluation, there is no indication for emergent surgery or inpatient Tx. It is understood by the patient/guardian that if the Sx's persist or worsen they need to return immediately for re-evaluation. ED course: Discussed imaging and labs with patient. Patient to follow up with OB. Patient understands/ agrees with plan. All questions answered. Return precautions discussed to include worsening symptoms, or any other concerns. On re-evaluation patient is a/o x4, nad, non-toxic appearing, ambulatory in the ED.. 12/07 13:53 Order name: CBC with Diff; Complete Time: 17:08 ms3 12/07 13:53 Order name: CMP; Complete Time: 17:09 ms3 12/07 13:53 Order name: Test, Urine; Complete Time: 17:08 ms3 12/07 13:53 Order name: Urinalysis w/ reflexes; Complete Time: 17:08 ms3 12/07 13:53 Order name: Quantitative Hcg; Complete Time: 17:09 ms3 12/07 14:45 Order name: Pelvis Complete EDMS 12/07 14:47 Order name: Transvaginal OB; Complete Time: 17:08 EDMS 12/07 13:53 Order name: IV Saline Lock; Complete Time: 16:23 ms3 12/07 13:53 Order name: Labs collected and sent; Complete Time: 16:23 ms3 Administered Medications: No medications were administered Disposition Summary: 12/08/23 17:18 Discharge Ordered Notes: Location: Home ms3 Condition: Stable ms3 Diagnosis - ms3 - Vomiting ms3 - Unspecified ovarian cyst, left side ms3 Followup: ms3 - With: Private Physician - When: 2 - 3 days - Reason: Recheck today's complaints Discharge Instructions: - Discharge Summary Sheet ms3 - Ovarian Cyst, [id number] ms3 - First Trimester of ms3 Forms: - Medication Reconciliation Form ms3 - Antibiotic Education ms3 - Prescription Opioid Use ms3 - Patient Portal Instructions ms3 - Leadership Thank You Letter ms3 Signatures: Dispatcher [employer] Reid Taylor MD MD rn José Aponte DO DO ms3 Mary Kay Aponte RN RN ld1 Corrections: (The following items were deleted from the chart) 13:54 13:54 1st Trimest Single 1st [id number].BRZ ordered. EDMS EDMS
[2023-12-08 17:53] VITALS: BP 119/45; TEMP 98.4; O2SAT 100
--- NOTE | 2023-12-08 20:37 | RAD REPORT ---
EXAM DESCRIPTION: US - Pelvis Complete - 12/08/2023 3:05 pm CLINICAL HISTORY: PAIN PREG COMPARISON: Transvaginal OB dated 03/20/2019 FINDINGS: A single gestational sac is seen within the uterus. The shape of the sac is within normal limits for gestational age. Within the sac is a single pole with crown-rump length of 5 mm , co rrelating to estimated gestational age of 6 weeks 2 days . Estimated date of delivery is 07/31/2024 . Heart rate is 113 BPM, normal . The placenta is not yet developed due to early gestational age. The maternal adnexa and ovaries are within normal limits. Normal Doppler blood flow was demonstrated to both ovaries. 4 cm left ovarian cyst. IMPRESSION: Single live early intrauterine gestation with estimated gestational age of 6 weeks and 2 days , JONAS 07/31/2024 . 4 cm left ovarian cyst.
== END 2023-12-08 17:38 | disposition home or self-care (01) ==
LOC: ER 13:41
DX: O21.9 Vomiting of pregnancy, unspecified (principal); O34.81 Maternal care for other abnormalities of pelvic organs, first trimester; N83.292 Other ovarian cyst, left side; Z3A.01 Less than 8 weeks gestation of pregnancy
CPT/HCPCS: 36415; 76817; 76856; 80053; 81001; 81025; 84702; 85025; 99284

== ENCOUNTER 2024-01-17 09:28 | Emergency (ER) | payer OTHER, SELFPAY ==
--- OUTSIDE RECORDS SUMMARY | 2024-01-17 09:36 | XMS REPORT | Continuity of Care Document ---
Author Name Unknown Address [address] [facility] [address] [place] [address] [facility] Address [address] [facility] [place] [address] Care Team Providers Care Purchase Price Analyst Name Role Phone LATOYA MOJICA Primary Care Physician UnavailROSY Evans Attending Clinician UnavailANSELMO Soler Attending Clinician Unavailable Guerrero Whitaker MD Attending Clinician [phone] Doctor Unassigned, [place] Attending Clinician Arlene Bean Attending Clinician UnavailHeaven Holm Attending Clinician [phone] Yenni Cervantes Attending Clinician Unavailable Hannah Sanchez Attending Clinician Yina Kimble Attending Clinician Unavailable Adali Mcpherson Attending Clinician [phone] Responsible Provider, Not Yet Assigned Attending Clinician Unavailable Yenni Gross Attending Clinician Unavailable Media Job Titles, [facility] Student Attending Clinic louise Unavailable Shayy Rios Attending Clinician UnavailColette Mandujano Attending Clinician [phone] Tram Landaverde Attending Clinician Unavailable Polina Dobson Attending Clinician Unavailable JANNA BONILLA Attending Clinician Unavailable Janna Bonilla PA-C Attending Clinician GUILLERMINA GILL Attending Clinician Unavailable 1, [facility] Attending Clinician Unavailable GUERRERO WHITAKER Attending Clinician Unavailable Heaven Morrow Unavailable [phone] Adali Mcpherson Unavailable [phone] Colette Chowdary Unavailable [phone] Yenni Cervantes Unavailable Unavailable Payers Payer Name Policy Type Policy Number Effective Date Expirati on Date Source [facility] [id number] 2018 00:00:00 Problems Condition Name Condition Details Condition Category Status Onset Date Resolution Date Last Treatment Date Treating Clinician Comments Source Greater Than or Equal to 95th Percentile For Age Condition Active 10-14 00:00: 00 2019-10-15 09:09:50 Heaven Morrow [facility] Anemia in , third trimester Condition Active 10-11 00:00: 00 2019-10-11 11:20:23 Adali Mcpherson [facility] Supervisio n of other high risk pregnancie s, third trimester Condition Active 10-07 00:00: 00 2019-10-07 17:42:03 Colette Chowdary [facility] Supervisio n of high risk due to social problems, third trimester Condition Active 10-07 00:00: 00 2019-10-07 17:42:03 Colette Chowdary [facility] Round ligament pain Round ligament pain Disease Active 09-17 00:00: 00 [facility] 32 weeks gestation of 32 weeks gestation of Disease Active 2018-08 00:00: 00 [facility] 28 weeks gestation of 28 weeks gestation of Disease Active 2018-08 00:00: 00 [facility] Supervisio n of high risk in third trimester Supervisio n of high risk in third trimester Disease Active 2018-08 00:00: 00 [facility] Uterine size-date discrepanc y in third trimester Uterine size-date discrepanc y in third trimester Disease Active 2018-08 00:00: 00 [facility] Need for Tdap vaccinatio n Need for Tdap vaccinatio n Disease Active 2018-08 00:00: 00 [facility] History of Past Illness Condition Name Condition Details Condition Category Status Onset Date Resolution Date Last Treatment Date Treating Clinician Comments Source 36 Weeks Gestation of Condition Inactiv e 10-14 00:00: 00 2019-10-21 00:00:00 2019-10-15 09:09:50 [facility] 35 Weeks Gestation of Condition Inactiv e 10-07 00:00: 00 2019-10-14 00:00:00 2019-10-07 17:42:03 Colette Chowdarytessie [facility] Allergies, Adverse Reactions, Alerts Allergy Name Allergy Type Status Severity Reaction(s) Onset Date Inactive Date Treating Clinician Comments Source Penicill ins - CLASS Propensi ty to adverse reaction to drug Active 03-05 00:00: 00 Penicill ins Propensi ty to adverse reaction to drug Active 3-21 00:00: 00 [facility] Active ITCHING 03-17 00:00: 00 [facility] Aspirin Propensi ty to adverse reaction s Active Swelling 03-17 00:00: 00 [facility] Social History Social Habit Start Date Stop Date Quantity Comments Source ASSERTION 2019-02-12 00:00:00 [facility] Sex Assigned At [facility] History SDOH Alcohol Std Drinks [facility] History SDOH Alcohol Binge [facility] Have you traveled to any zika virus infected areas? 2019-10-14 13:44:33 2019-10-14 13:44:33 No [facility] Arzeda social history E&M 2019-10-07 14:07:37 2019-10-07 14:07:37 not currently with familyliving with fob's familystates her own parents not involved with this . [facility] Sqoot cat exposure during 2019-10-07 14:07:37 2019-10-07 14:07:37 no [facility] Alcohol intake 2019-09-17 00:00:00 2019-09-17 00:00:00 [facility] History SDOH Alcohol Frequency 2019-03-17 00:00:00 2019-03-17 00:00:00 1 [facility] History of tobacco use 2019-03-07 00:00:00 Chews Tobacco [facility] Smoking Status Start Date Stop Date Source Never smoker [facility] Medications Ordered Medication Name Filled Medication Name Start Date Stop Date Current Medication? Ordering Clinician Indication Dosage Frequency Signature (SIG) Comments Components Source Dose Unknown 0 18 00:00: 00 No TAKE 1 TABLET BY MOUTH EVERY DAY 0 918 00:00: 00 No TAKE 1 TABLET BY MOUTH EVERY DAY 0 18 00:00: 00 No 10 TAKE 1 TABLET BY MOUTH EVERY DAY 0 818 00:00: 00 No 10 Dose Unknown 2021-0 8-12 00:00: 00 No 375 Dose Unknown 0 812 00:00: 00 No 375 Dose Unknown 2021-0 812 00:00: 00 No 375 TAKE 1 CAPSULE BY MOUTH 3 TIMES A DAY NEEDED 2021-0 8-10 00:00: 00 No 25 TAKE 1 CAPSULE BY MOUTH 3 TIMES A DAY NEEDED 0 8- 00:00: 00 No 25 TAKE 1 CAPSULE BY MOUTH 3 TIMES A DAY NEEDED 2021-0 8- 00:00: 00 No 25 Dose Unknown 2021-0 8-08 00:00: 00 No 500 Dose Unknown 2021-0 8-08 00:00: 00 No 300 Dose Unknown 0 8-08 00:00: 00 No 500 Dose Unknown 0 808 00:00: 00 No 300 Dose Unknown 0 808 00:00: 00 No 500 Dose Unknown 0 8 00:00: 00 No 300 TAKE 1 TABLET DAILY. 0 8- 00:00: 00 No 10 Dose Unknown 0 8-06 00:00: 00 No 375 TAKE 1 TABLET BY MOUTH EVERY 6 HOURS NEEDED FOR PAIN 0 8- 00:00: 00 No TAKE 1 TABLET DAILY. 2022-0 8-06 00:00: 00 No 10 Dose Unknown 2022-0 8-06 00:00: 00 No 375 TAKE 1 TABLET BY MOUTH EVERY 6 HOURS NEEDED FOR PAIN 2-0 8-06 00:00: 00 No TAKE 1 TABLET DAILY. 2022-0 8-06 00:00: 00 No 10 Dose Unknown 2022-0 8-06 00:00: 00 No 375 TAKE 1 TABLET BY MOUTH EVERY 6 HOURS NEEDED FOR PAIN 2-0 8-06 00:00: 00 No TAKE 1 TABLET DAILY. 2-0 8-06 00:00: 00 No 10 Dose Unknown 2-0 8-06 00:00: 00 No 375 TAKE 1 TABLET BY MOUTH EVERY 6 HOURS NEEDED FOR PAIN 2-0 8-06 00:00: 00 No Dose Unknown 2022-0 [...] 00:00: 00 No citalopram 10 mg tablet 2022-0 7-20 00:00: 00 No 1mg Dose Unknown 2022-0 7-20 00:00: 00 No 375 &lt 2022-0 7-20 00:00: 00 No 500 TAKE 1 CAPSULE BY MOUTH EVERY 6 HOURS FOR 10 DAYS 2022-0 7-20 00:00: 00 No 300 citalopram 10 mg tablet 2022-0 7-20 00:00: 00 No 1mg Dose Unknown 2022-0 7-20 00:00: 00 No 375 &lt 2022-0 7-20 00:00: 00 No 500 TAKE 1 CAPSULE BY MOUTH EVERY 6 HOURS FOR 10 DAYS 2022-0 7-20 00:00: 00 No 300 citalopram 10 mg tablet 2022-0 7-20 00:00: 00 No 1mg Dose Unknown 2022-0 7-20 00:00: 00 No 375 &lt 2022-0 7-20 00:00: 00 No 500 TAKE 1 CAPSULE BY MOUTH EVERY 6 HOURS FOR 10 DAYS 2022-0 7-20 00:00: 00 No 300 citalopram 10 mg tablet 2022-0 7-20 00:00: 00 No 1mg Dose Unknown 2022-0 7-20 00:00: 00 No 375 &lt 2022-0 7-20 00:00: 00 No 500 TAKE 1 CAPSULE BY MOUTH EVERY 6 HOURS FOR 10 DAYS 2022-0 7-20 00:00: 00 No 300 citalopram 10 mg tablet 2022-0 7-19 00:00: 00 No 1mg citalopram 10 mg tablet 2-0 7-19 00:00: 00 No 1mg citalopram 10 mg tablet 2-0 719 00:00: 00 No 1mg citalopram 10 mg tablet 2-0 719 00:00: 00 No 1mg TAKE 1 CAPSULE [...] 1 CAPSULE BY MOUTH EVERY DAY 2-0 15 00:00: 00 No 375 &lt 2022-0 715 00:00: 00 No TAKE 1 CAPSULE BY MOUTH EVERY 6 HOURS FOR 10 DAYS 2-0 7-15 00:00: 00 No 300 &lt 2022-0 7- 00:00: 00 No 100 &lt 2022-0 7-12 00:00: 00 No 100 &lt 2022-0 7-12 00:00: 00 No 100 &lt 2022-0 7-12 00:00: 00 No 100 TAKE 1 CAPSULE BY MOUTH 3 TIMES A DAY NEEDED 2-0 7- 00:00: 00 No 25 &lt 2022-0 7- 00:00: 00 No 500 Dose Unknown 2-0 7- 00:00: 00 No 375 TAKE 1 [...] 00 No doxycycline hyclate 100 mg tablet 2-0 3-21 00:00: 00 No 1mg doxycycline hyclate [...] capsule 2020-1 -22 00:00: 00 No 1mg doxycycline monohydrate 100 mg capsule 2020-1 -22 00:00: 00 No 1mg doxycycline monohydrate 100 mg capsule 2020-1 - 00:00: 00 No 1mg doxycycline monohydrate 100 mg capsule 1 - 00:00: 00 No 1mg doxycycline monohydrate 100 mg capsule 1 - 00:00: 00 No 1mg medroxyprog esterone 150 [...] Mcpherson Take 1 Tablet Once a Day [facility] VITAFOL ULTRA (PRENAT-FE POLY-METHFO L-FA-DHA) 29-0.6-0.4- 200 MG CAPS 10-07 00:00: 00 Yes Colette Germán Manning 1{Capsu le} 1xD take 1 capsule by mouth daily [facility] BLOOD PRESSURE (BLOOD PRESSURE MONITORING) KIT 10-07 00:00: 00 Yes Colette Germán Manning take twice daily [facility] PNV 67-iron ps-folate no.1-dha (VITAFOL ULTRA) 29 mg iron- 1 mg-200 mg Cap 03 00:00: 00 Yes [id number] Take 1 TAB-CAP/M2 by mouth daily. [facility] cetirizine 5 mg tablet 12-22 00:00: [...] e-ethinyl estradiol 0.18 mg/0.215mg/ 0.25mg-35 mcg(28)tabl et 24 00:00: 00 No 1mg-35 mcg (28) norgestimat [...] (28) No known medications No Un adrian [facility] No known medications No Un adrian [facility] Vital Signs Vital Name Observation Time Observation Value Comments S ource Systolic blood pressure 2019-08-31 23:06:00 93 mm[Hg] [facility] Diastolic blood pressure 2019-08-31 23:06:00 64 mm[Hg] [facility] Heart rate 2019-08-31 23:06:00 90 /min [facility] Body temperature 2019-08-31 23:06:00 36.39 Vicky [facility] Respiratory rate 2019-08-31 23:06:00 18 /min [facility] Body height 2019-08-31 23:06:00 160 cm [facility] Body weight 2019-08-31 23:06:00 101.606 kg [facility] BMI 2019-08-31 23:06:00 39.68 kg/m2 [facility] Systolic blood pressure 2019-04-14 19:00:00 117 mm[Hg] [facility] Diastolic blood pressure 2019-04-14 19:00:00 70 mm[Hg] [facility] Heart rate 2019-04-14 19:00:00 79 /[facility] Body temperature 2019-04-14 19:00:00 36.89 Vicky [facility] Respiratory rate 2019-04-14 19:00:00 18 /min [facility] Body height 2019-04-14 19:00:00 160 cm [facility] Body weight 2019-04-14 19:00:00 87.544 kg [facility] BMI 2019-04-14 19:00:00 34.19 kg/m2 [facility] Systolic blood pressure 2019-03-17 14:24:00 112 mm[Hg] [facility] Diastolic blood pressure 2019-03-17 14:24:00 70 mm[Hg] [facility] Heart rate 2019-03-17 14:24:00 77 /min [facility] Body temperature 2019-03-17 14:24:00 36.83 Vicky [facility] Respiratory rate 2019-03-17 14:24:00 18 /min [facility] Body height 2019-03-17 14:24:00 160 cm [facility] Body weight 2019-03-17 14:24:00 90.266 kg [facility] BMI 2019-03-17 14:24:00 35.25 kg/m2 [facility] BP Systolic 2022-05-07 17:13:00 117 mm[Hg] BP [...] blood pressure, diastolic 2019-10-14 13:44:33 84 mm[Hg] [facility] blood pressure, systolic 2019-10-14 13:44:33 125 mm[Hg[facility] E&M 2019-10-14 13:44:33 87 /min L [facility] oxygen saturation, oximetry 2019-10-14 13:44:33 97 % [facility] E&M 2019-10-14 13:44:33 20 /min [facility] temperature site 2019-10-14 13:44:33 oral [facility] temperature E&M 2019-10-14 13:44:33 98.3 [degF] [facility] weight E&M 2019-10-14 13:44:33 238.8 [lb_av] [place] [facility] height E&M 2019-10-14 13:44:33 63 [in_i] [facility], o[facility]etry 2019-10-07 14:07:37 98 % [facility] blood pressure, diastolic 2019-10-07 14:07:37 83 mm[Hg] [facility] blood pressure, systolic 2019-10-07 14:07:37 130 mm[Hg] [facility] pulse rate E&M 2019-10-07 14:07:37 91 /min L [facility] temperature E&M 2019-10-07 14:07:37 98.6 [degF] [facility] temperature site 2019-10-07 14:07:37 oral [facility] height E&M 2019-10-07 14:07:37 63 [in_i] Legac y [facility] weight E&M 2019-10-07 14:07:37 235 [lb_av] Lega [facility] Procedures Procedure Date / Time Performed Performing Clinician Source CONSENT/REFUSAL FOR DIAGNOSIS AND TREATMENT 2019-10-25 05:01:00 Doctor Unassigned, [place] [facility] Nutrition Counseling (Obese) 2019-10-14 14:28:44 Heaven Morrow [facility] Case Mgmt Visit, Non-Billable [id number] 2019-10-07 15:54:24 Yenni Gross [facility] Vaccines Ordered - Print Consent/Declination Forms 2019-10-07 15:46:26 Germán NigelColette [facility] POCT URINALYSIS W/O SPECIFIC GRAVITY 2019-08-31 00:00:00 FidencioJanna durbin [facility] <14 WEEKS US LIMITED 2019-04-16 17:44:02 Guerrero Whitaker [facility] CBC WITH DIFFERENTIAL 2019-04-14 21:36:00 Bry Guerrero Shannon m [facility] ASSIGNMENT OF BENEFITS 2019-04-14 20:00:31 Docto r Unassigned, [place] [facility] <14 WEEKS US LIMITED 2019-03-20 23:54:07 Guerrero Whitaker [facility] TOTAL BETA HCG ASSAY 2019-03-17 15:19:00 Guerrero Whitaker [facility] GC & CHLAMYDIA AMPLIFIED ASSAY 2019-03-17 14:53:00 Bry Guerrero [facility] GALV ONLY - VAGINAL PATHOGENS BY DNA PROBE 2019-03-17 14:53:00 Guerrero Whitaker [facility] ADC / LCC - DRUG SCREEN TRIAGE 2019-03-17 14:53:00 Guerrero Whitaker [facility] POCT TEST 2019-03-17 00:00:00 Bry Guerreroalyssia Schwab [facility] POCT URINALYSIS W/O SPECIFIC GRAVITY 2019-03-17 00:00:00 Bry Guerrero [facility] Plan of Care Planned Activity Planned Date Details Comments Source Goal Plan of Care Note [code = 47997-6] Goal Plan of Care Note [code = 94744-9] Goal Plan of Care Note [code = 50191-0] Goal Plan of Care Note [code = 83384-7] Goal Plan of Care Note [code = 96905-6] Goal Plan of Care Note [code = 37635-3] Goal Plan of Care Note [code = 77935-2] Goal Plan of Care Note [code = 30035-4] Goal Plan of Care Note [code = 08567-7] Goal Plan of Care Note [code = 53373-9] Goal Plan of Care Note [code = 05478-6] Goal Plan of Care Note [code = 86016-5] Goal Plan of Care Note [code = 86964-9] Goal Plan of Care Note [code = 04570-7] Goal Plan of Care Note [code = 85969-0] Goal Plan of Care Note [code = 19845-1] Goal Plan of Care Note [code = 61224-5] Goal Plan of Care Note [code = 75439-7] Goal Plan of Care Note [code = 94879-6] Goal Plan of Care Note [code = 23973-6] Goal Plan of Care Note [code = 18841-4] Goal Plan of Care Note [code = 46394-3] Goal Plan of Care Note [code = 34866-5] Goal Plan of Care Note [code = 52879-0] Goal Plan of Care Note [code = 75028-0] Goal Plan of Care Note [code = 16263-5] Goal Plan of Care Note [code = 80683-1] Goal Plan of Care Note [code = 63159-7] Goal Plan of Care Note [code = 36731-2] Goal Plan of Care Note [code = 86160-8] Goal Plan of Care Note [code = 75043-8] Goal Plan of Care Note [code = 51844-6] Goal Plan of Care Note [code = 35184-6] Goal Plan of Care Note [code = 22824-4] Goal Plan of Care Note [code = 38591-3] Goal Plan of Care Note [code = 32891-5] Goal Plan of Care Note [code = 09889-7] Goal Plan of Care Note [code = 44892-2] Goal Plan of Care Note [code = 77992-8] Goal Plan of Care Note [code = 24888-7] Goal Plan of Care Note [code = 07748-8] Goal Plan of Care Note [code = 39457-6] Goal Plan of Care Note [code = 51553-7] Goal Plan of Care Note [code = 30474-5] Goal Plan of Care Note [code = 72165-3] Goal Plan of Care Note [code = 61888-9] Goal Plan of Care Note [code = 33039-6] Goal Plan of Care Note [code = 90832-6] Goal Plan of Care Note [code = 63107-2] Goal Plan of Care Note [code = 65668-0] Goal Plan of Care Note [code = 74299-4] Goal Plan of Care Note [code = 89420-8] Goal Plan of Care Note [code = 86912-9] Goal Plan of Care Note [code = 55886-2] Goal Plan of Care Note [code = 04017-2] Goal Plan of Care Note [code = 23057-2] Goal Plan of Care Note [code = 01485-7] Goal Plan of Care Note [code = 86221-0] Goal Plan of Care Note [code = 85835-2] Goal Plan of Care Note [code = 09516-1] Goal Plan of Care Note [code = 62612-5] Goal Plan of Care Note [code = 02035-7] Goal Plan of Care Note [code = 59043-8] Goal Plan of Care Note [code = 31227-0] Goal Plan of Care Note [code = 15098-4] Goal Plan of Care Note [code = 46439-4] Goal Plan of Care Note [code = 93405-5] Goal Plan of Care Note [code = 74361-0] Goal Plan of Care Note [code = 31015-0] Goal Plan of Care Note [code = 96202-7] Goal Plan of Care Note [code = 68617-6] Goal Plan of Care Note [code = 64580-2] Goal Plan of Care Note [code = 34473-2] Goal Plan of Care Note [code = 22655-2] Goal Plan of Care Note [code = 80390-8] Goal Plan of Care Note [code = 02227-9] Goal Plan of Care Note [code = 65337-3] Goal Plan of Care Note [code = 20433-6] Goal Plan of Care Note [code = 19251-0] Goal Plan of Care Note [code = 92179-5] Goal Plan of Care Note [code = 09716-3] Goal Plan of Care Note [code = 27394-9] Goal Plan of Care Note [code = 82494-0] Goal Plan of Care Note [code = 16986-4] Goal Plan of Care Note [code = 99824-8] Goal Plan of Care Note [code = 89292-4] Goal Plan of Care Note [code = 68985-7] Goal Plan of Care Note [code = 36894-8] Goal Plan of Care Note [code = 88507-8] Goal Plan of Care Note [code = 34065-7] Goal Plan of Care Note [code = 06574-4] Goal Plan of Care Note [code = 20168-6] Goal Plan of Care Note [code = 87205-1] Goal Plan of Care Note [code = 66938-7] Goal Plan of Care Note [code = 66979-6] Goal Plan of Care Note [code = 60645-6] Goal Plan of Care Note [code = 24309-6] Goal Plan of Care Note [code = 42938-1] Goal Plan of Care Note [code = 51336-8] Goal Plan of Care Note [code = 75879-8] Goal Plan of Care Note [code = 61754-4] Goal Plan of Care Note [code = 65987-6] Goal Plan of Care Note [code = 31069-0] Goal Plan of Care Note [code = 19227-8] Goal Plan of Care Note [code = 30668-0] Goal Plan of Care Note [code = 42535-6] Goal Plan of Care Note [code = 25945-4] Goal Plan of Care Note [code = 40183-3] Goal Plan of Care Note [code = 74771-1] Goal Plan of Care Note [code = 23198-9] Goal Plan of Care Note [code = 64995-0] Goal Plan of Care Note [code = 75507-7] Goal Plan of Care Note [code = 41715-0] Goal Plan of Care Note [code = 22697-7] Goal Plan of Care Note [code = 77255-2] Goal Plan of Care Note [code = 48406-3] Goal Plan of Care Note [code = 31675-5] Goal Plan of Care Note [code = 26472-8] Goal Plan of Care Note [code = 91995-4] Goal Plan of Care Note [code = 93997-5] Goal Plan of Care Note [code = 16607-6] Goal Plan of Care Note [code = 83918-8] Goal Plan of Care Note [code = 78762-9] Goal Plan of Care Note [code = 98650-1] Goal Plan of Care Note [code = 18641-8] Goal Plan of Care Note [code = 56010-5] Goal Plan of Care Note [code = 02747-6] Goal Plan of Care Note [code = 93067-9] Goal Plan of Care Note [code = 91643-7] Goal Plan of Care Note [code = 66516-2] Goal Plan of Care Note [code = 52547-8] Goal Plan of Care Note [code = 76011-8] Goal Plan of Care Note [code = 10459-2] Goal Plan of Care Note [code = 09260-8] Goal Plan of Care Note [code = 00360-9] Goal Plan of Care Note [code = 18395-1] Goal Plan of Care Note [code = 02381-5] Goal Plan of Care Note [code = 94875-5] Goal Plan of Care Note [code = 82134-6] Goal Plan of Care Note [code = 72615-7] Goal Plan of Care Note [code = 38650-1] Goal Plan of Care Note [code = 39707-5] Goal Plan of Care Note [code = 25677-6] Goal Plan of Care Note [code = 26156-7] Goal Plan of Care Note [code = 09344-7] Goal Plan of Care Note [code = 95961-8] Goal Plan of Care Note [code = 67898-4] Goal Plan of Care Note [code = 19789-7] Goal Plan of Care Note [code = 73904-7] Goal Plan of Care Note [code = 20109-5] Goal Plan of Care Note [code = 90423-5] Goal Plan of Care Note [code = 79449-7] Goal Plan of Care Note [code = 14717-9] Goal Plan of Care Note [code = 54605-7] Goal Plan of Care Note [code = 48506-8] Goal Plan of Care Note [code = 11656-5] Goal Plan of Care Note [code = 97229-5] Goal Plan of Care Note [code = 92990-2] Goal Plan of Care Note [code = 62021-5] Goal Plan of Care Note [code = 31048-2] Goal Plan of Care Note [code = 35601-4] Goal Plan of Care Note [code = 85081-5] Goal Plan of Care Note [code = 77595-8] Goal Plan of Care Note [code = 13724-5] Goal Plan of Care Note [code = 43688-3] Goal Plan of Care Note [code = 88238-8] Goal Plan of Care Note [code = 63274-1] Goal Plan of Care Note [code = 29812-5] Goal Plan of Care Note [code = 00809-8] Goal Plan of Care Note [code = 39771-3] Goal Plan of Care Note [code = 26586-7] Goal Plan of Care Note [code = 93386-8] Goal Plan of Care Note [code = 64317-6] Goal Plan of Care Note [code = 15065-7] Goal Plan of Care Note [code = 95706-7] Goal Plan of Care Note [code = 48843-9] Goal Plan of Care Note [code = 67430-2] Goal Plan of Care Note [code = 65594-2] Goal Plan of Care Note [code = 60456-8] Goal Plan of Care Note [code = 17364-2] Goal Plan of Care Note [code = 82931-6] Goal Plan of Care Note [code = 67406-3] Goal Plan of Care Note [code = 28286-8] Goal Plan of Care Note [code = 41832-0] Goal Plan of Care Note [code = 64138-2] Goal Plan of Care Note [code = 74859-2] Goal Plan of Care Note [code = 05452-7] Goal Plan of Care Note [code = 45693-8] Goal Plan of Care Note [code = 33044-8] Goal Plan of Care Note [code = 65266-6] Goal Plan of Care Note [code = 40221-1] Goal Plan of Care Note [code = 40387-6] Goal Plan of Care Note [code = 35165-2] Goal Plan of Care Note [code = 72771-6] Goal Plan of Care Note [code = 04515-4] Goal Plan of Care Note [code = 90817-8] Goal Plan of Care Note [code = 34766-2] Goal Plan of Care Note [code = 22163-3] Goal Plan of Care Note [code = 55767-5] Goal Plan of Care Note [code = 63606-9] Goal Plan of Care Note [code = 98641-5] Goal Plan of Care Note [code = 04005-1] Goal Plan of Care Note [code = 99555-0] Goal Plan of Care Note [code = 87652-6] Goal Plan of Care Note [code = 28864-1] Goal Plan of Care Note [code = 44472-4] Goal Plan of Care Note [code = 37698-1] Goal Plan of Care Note [code = 31746-2] Goal Plan of Care Note [code = 64644-3] Encounters Start Date/Time End Date/Time Encounter Type Admission Type Attending [facility] Care Department Encounter ID Source 2023-12-18 14:30:00 2023-12-18 14:30:00 Outpatient ANSELMO MON [facility] [id number] [facility] 2023-12-17 16:09:29 2023-12-17 16:09:29 Outpatient SFA SFA [id number] Cj Carlisle 2023-12-12 14:00:00 2023-12-12 14:00:00 Outpatient ANSELMO MON [facility] [id number] [facility] 2023-11-11 15:00:20 2023-11-11 15:00:20 Outpatient SFA SFA [id number] Cj Carlisle 2023-10-30 09:20:09 2023-10-30 09:20:09 Outpatient SFA SFA [id number] Cj Carlisle 2023-10-16 14:55:13 2023-10-16 14:55:13 Outpatient SFA SFA [id number] Cj Carlisle 2023-10-13 10:03:24 2023-10-13 10:03:24 Outpatient SFA SFA [id number] Cj Carlisle 2023-09-03 17:01:34 2023-09-03 17:01:34 Outpatient SFA SFA [id number] Cj Carlisle 2023-08-05 17:09:08 2023-08-05 17:09:08 Outpatient SFA SFA [id number] Cj Carlisle 2023-07-11 10:26:43 2023-07-11 10:26:43 Outpatient SFA SFA [id number] Cj Carlisle 2023-07-05 12:46:18 2023-07-05 12:46:18 Outpatient SFA SFA [id number] Cj Carlisle 2023-06-04 16:14:59 2023-06-04 16:14:59 Outpatient SFA SFA [id number] Cj Carlisle 2023-05-21 14:50:27 2023-05-21 14:50:27 Outpatient SFA SFA [id number] Cj Carlisle 2023-05-07 13:29:15 2023-05-07 13:29:15 Outpatient SFA SFA [id number] Cj Carlisle 2023-05-04 14:07:34 2023-05-04 14:07:34 Outpatient SFA SFA [id number] Cj Carlisle 2023-04-30 15:40:18 2023-04-30 15:40:18 Outpatient SFA SFA [id number] Cj Carlisle 2023-04-08 12:40:22 2023-04-08 12:40:22 Outpatient SFA SFA [id number] Cj Carlisle 2023-03-28 13:58:41 2023-03-28 13:58:41 Outpatient SFA SFA [id number] Cj Carlisle 2023-03-24 12:23:25 2023-03-24 12:23:25 Outpatient SFA SFA [id number] Cj Carlisle 2023-03-10 14:14:23 2023-03-10 14:14:23 Outpatient SFA SFA [id number] Cj Carlisle 2023-02-17 13:57:55 2023-02-17 13:57:55 Outpatient SFA SFA [id number] Cj Carlisle 2022-12-31 14:01:12 2022-12-31 14:01:12 Outpatient SFA SFA [id number] Cj Guzman Orestes 2022-10-17 13:22:30 2022-10-17 13:22:30 Outpatient SFA SFA [id number] Cj Guzman Orestes 2022-07-04 16:27:15 2022-07-04 16:27:15 Outpatient SFA SFA [id number] Cj Carlisle 2022-06-25 09:30:43 2022-06-25 09:30:43 Outpatient SFA SFA [id number] Cj Carlisle 2022-04-04 00:00:00 2022-04-04 00:00:00 Outpatient Visit [id number] -[id number]-176 [id number]-6 cf4-4333-a 14d-616d2c jrn058 2022-03-29 00:00:00 2022-03-29 00:00:00 Outpatient Visit [id number]- [id number] -aee4-f53 [id number] [id number] p00-879s-p ee4-f53cf0 d1d1ff 2022-03-23 00:00:00 2022-03-23 00:00:00 Outpatient Visit [id number]- n9o0-8s50 -js36-37n [id number] e38pge70-b 9w4-3v53-h t56-31js8y 8f989r 2022-03-20 00:00:00 2022-03-20 00:00:00 Outpatient Visit [id number] [id number]-4139 -o112-o22 [id number] 99b-4139-b 979-d90d6a [id number] 2022-03-11 00:00:00 2022-03-11 00:00:00 Outpatient Visit [id number]- 0xk8-0du2 -9183-471 [id number] [id number] be8-4fb1-9 183-471bfe 09f04a 2022-03-05 00:00:00 2022-03-05 00:00:00 Outpatient Visit [id number]- [id number] -jo3l-97r [id number] 883-4b9d-a s4t-94r074 953bc3 2022-02-28 00:00:00 2022-02-28 00:00:00 Outpatient Visit [id number]- dn69-03y5 -g9al-2cx [id number]-y c25-97c1-k 3bc-4me760 833794 3146-07-11 00:00:00 2022-02-25 00:00:00 Outpatient Visit [id number]- 03cc-4c8d -8777-5b3 [id number] 3cc-4c8d-8 [id number] 20b2eb 2019-11-17 00:00:00 2019-11-17 00:00:00 Telephone Guerrero Whitaker [facility] 1.2.840.114 350.1.13.10 4.2.7.2.686 [id number] [facility] 2019-10-25 00:00:00 2019-10-25 00:00:00 Orders Only Doctor Unassigned, [place] [facility] 1.2.840.114 350.1.13.10 4.2.7.2.686 [id number] [facility] 2019-10-21 00:00:00 2019-10-21 00:00:00 Office Visit Arlene Valentino [facility] PACK[facility]ER HEAD Encounter/ [id number] [facility] 2019-10-21 00:00:00 2019-10-21 00:00:00 Office Visit Arlene Valentino [facility] HEAD Encounter/ [id number] [facility] 2019-10-19 00:00:00 2019-10-19 00:00:00 Office Visit Arlene Valentino Zuleika [facility] En[facility]/ [id number] [facility] 2019-10-19 00:00:00 2019-10-19 00:00:00 Office Visit Arlene Valentino [facility] HEAD Encounter/ [id number] [facility] 2019-10-19 00:00:00 2019-10-19 00:00:00 Office Visit Arlene Valentino [facility] HEAD Encounter/ [id number] [facility] 2019-10-18 00:00:00 2019-10-18 00:00:00 Office Visit Arlene Valentino [facility] HEAD Encounter/ [id number] [facility] 2019-10-15 00:00:00 2019-10-15 00:00:00 Office Visit Arlene Valentino [facility] PACK[facility]ER HEAD Encounter/ [id number] [facility] 2019-10-14 00:00:00 2019-10-14 00:00:00 Office Visit Heaven Morrow [facility]/ [id number] [facility] 2019-10-14 00:00:00 2019-10-14 00:00:00 Office Visit Heaven Morrow [facility] Encounter/ [id number] [facility] 2019-10-14 00:00:00 2019-10-14 00:00:00 Office Visit Heaven Morrow [facility] HEAD Encounter/ [id number] [facility] 2019-10-14 00:00:00 2019-10-14 00:00:00 Office Visit Heaven Morrow [facility] P[facility] HEAD Encounter/ [id number] [facility] 2019-10-14 00:00:00 2019-10-14 00:00:00 Office Visit Heaven Morrow Maria Castillo, Stephanie A [facility] PACK[facility] HEAD Encounter/ [id number] [facility] 2019-10-14 00:00:00 2019-10-14 00:00:00 Office Visit Yina Green [facility] PACKAGER HEAD Encounter/ [id number] [facility] 2019-10-11 00:00:00 2019-10-11 00:00:00 Office Visit Adali Mcpherson [facility] Encounter/ [id number] [facility] 2019-10-07 00:00:2019-10-07 00:00:00 Office Visit Responsible Provider, Not Yet Assigned Adali Mcpherson [facility] Encounter/ [id number] [facility] 2019-10-07 00:00:00 2019-10-07 00:00:00 Office Visit Responsible Provider, Not Yet Assigned Adali Mcpherson [facility] Encounter/ [id number] [facility] 2019-10-07 00:00:00 2019-10-07 00:00:00 Office Visit Responsible Provider, Not Yet Assigned Adali Mcpherson [facility] Encounter/ [id number] [facility] 2019-10-07 00:00:00 2019-10-07 00:00:00 Office Visit Yenni Gross [facility] Mechanical Engineering Intern Encounter/ [id number] [facility] 2019-10-07 00:00:00 2019-10-07 00:00:00 Office Visit Media Job Titles, Health Advocate Student Shayy Rios [facility] Encounter/ [id number] [facility] 2019-10-07 00:00:00 2019-10-07 00:00:00 Office Visit Colette Chowdary, Tram Dobson, Yenni Tejeda Christine [facility] PACKAGER HEAD Encounter/ [id number] [facility] 2019-10-06 00:00:00 2019-10-06 00:00:00 Office Visit Yina Green [facility] PACKAGER HEAD Encounter/ [id number] [facility] 2019-09-30 15:00:00 2019-09-30 15:00:00 Outpatient R JANNA BONILLA [facility] [id number] [facility] 2019-09-16 00:00:00 2019-09-16 00:00:00 Letter (Out) Janna Bonilla [facility] 1.2.840.114 350.1.13.10 4.2.7.2.686 [id number] [facility] 2019-08-31 16:27:53 2019-08-31 16:42:53 Routine Visit Janna Bonilla [facility] 1.2.840.114 350.1.13.10 4.2.7.2.686 [id number] [facility] 2019-08-27 15:00:00 2019-08-27 18:05:33 Outpatient GUILLERMINA ORNELAS [facility] [id number] [facility] 2019-05-03 00:00:00 2019-05-03 00:00:00 Case Management Guerrero Whitaker [facility] 1.2.840.114 350.1.13.10 4.2.7.2.686 [id number] [facility] 2019-04-21 00:00:00 2019-04-21 00:00:00 [facility] 1.2.840.114 350.1.13.10 4.2.7.2.686 [id number] [facility] 2019-04-21 00:00:00 2019-04-21 00:00:00 [facility] 1.2.840.114 350.1.13.10 4.2.7.2.686 [id number] [facility] 2019-04-20 00:00:00 2019-04-20 00:00:00 [facility] 1.2.840.114 350.1.13.10 4.2.7.2.686 [id number] [facility] 2019-04-14 15:00:27 2019-04-14 15:15:27 Satellite Installer Visit 1, Adc Lab Guerrero Whitaker [facility] 1.2.840.114 350.1.13.10 4.2.7.2.686 [id number] [facility] 2019-04-14 15:00:00 2019-04-14 15:00:00 Outpatient R GUERRERO WHITAKER [facility] [id number] [facility] 2019-04-14 13:41:25 2019-04-14 14:43:27 Routine Visit Guerrero Whitaker [facility] 1.2.840.114 350.1.13.10 4.2.7.2.686 [id number] [facility] 2019-04-14 00:00:00 2019-04-14 00:00:00 Letter (Out) Guerrero Whitaker [facility] 1.2.840.114 350.1.13.10 4.2.7.2.686 [id number] [facility] 2019-04-14 00:00:00 2019-04-14 00:00:00 Orders Only Doctor Unassigned, [place] [facility] 1.2.840.114 350.1.13.10 4.2.7.2.686 [id number] [facility] 2019-04-07 00:00:00 2019-04-07 00:00:00 Telephone Guerrero Whitaker [facility] 1.2.840.114 350.1.13.10 4.2.7.2.686 [id number] [facility] 2019-04-01 00:00:00 2019-04-01 00:00:00 Telephone Gurerero Whitaker [facility] 1.2.840.114 350.1.13.10 4.2.7.2.686 [id number] [facility] 2019-03-17 10:12:58 2019-03-24 08:59:00 Satellite Installer Visit 1, Adc Lab Guerrero Whitaker [facility] 1..840.114 350.1.13.10 4.2.7.2.686 [id number] [facility] 2019-03-17 10:15:00 2019-03-17 10:15:00 Outpatient R GUERRERO WHITAKER [facility] [id number] [facility] 2019-03-17 08:58:48 2019-03-17 10:02:46 Initial Visit Guerrero Whitaker [facility] ED Professio [facility] 1..840.114 350.1.13.10 4.2.7.2.686 [id number] [facility] Results Test Description Test Time Test Comments Results Result Co mments Source GONORRHEA, NAAT, [id number] 12:29:30* Test Item Value Reference Range Interpretation Comme nts GONORRHEA, NAAT, URINE (test code = 60890) NEGATIVE NEGATIVE Testing is perfo rmed with [place] MIRA 6800/8800 systems usingreal-time polymerase chain reaction (PCR) method. A negative result does not exclude low level infection, specimensampling error, or collection error. RPR REFLEX TO T. PALLIDUM - [id number] 04:03:32* Test Item Value Reference Range Interpretation Comme nts RPR (test code = 96902) NON-REACTIVE NON-REACTIVE RPR TITER (test code = 3500) NOT INDIC. TITER NOT INDIC. HIV 1/2 4TH GEN, RFLX [id number] 04:01:26* Test Item Value Reference Range Interpretation Comme nts HIV 1/2 4TH GEN, RFLX CONF ( test code = 3514) NON-REACTIVE NON-REACTIVE HEPATITIS PANEL, [id number] 04:01:26* Test Item Value Reference Range Interpretation Comme nts HEPATITIS A IgM (test code = 98611) NON-REACTIVE NON-REACTIVE HEPATITIS B CORE IgM (test code = 4644) NON-REACTIVE NON-REACTIVE HEPATITIS B SURF AG (test code = 2739) NON-REACTIVE NON-REACTIVE HEPATITIS C ANTIBODY (test code = 4675) NON-REACTIVE NON-REACTIVE INTERPRETATION HEPATITIS A: (test code = 2552) (NOTE) Hepatitis A sero logy shows no evidence of acute hepatitis A. INTERPRETATION HEPATITIS B: (test code = 64113) (NOTE) Hepatitis B sero logy shows no evidence of acute hepatitis B andno indication of exposure to hepatitis B virus in the previous huyen eight months. INTERPRETATION HEPATITIS C: (test code = 77145) (NOTE) Hepatitis C sero logy shows no evidence of exposure to hepatitisC virus at this time. It can take up to 12 months after exposure tothe hepatitis C virus for antibodies to become detectable in the blood in certain patients. UNLESS OTHERWISE INDICATED, ALL TESTING PERFORMED AT [facility] [address] [place] [address] MANUFACTURER'S SERVICE REPRESENTATIVE: SHAYY SANTOS M.D. CLIA NUMBER [id number] [facility] [place]. [id number] CULTURE, ROUTINE SENSITIVITY ON [id number] 14:09:05SPECIMEN NUMBER: [id number] CULTURE, ROUTINE SENSITIVITY ON ALL SPECIMEN NUMBER: [id number] SOURCE: OTHER SOURCE REPORT STATUS: FINAL FINAL REPORT: 07/09/2023 NO SPECIMEN RECEIVED FOR TESTING. CHARGES DELETED.HIV 1/2 4TH GEN, RFLX [id number] 02:08:57* Test Item Value Reference Range Interpretation Comme nts HIV 1/2 4TH GEN, RFLX CONF ( test code = 3514) NON-REACTIVE NON-REACTIVE HEPATITIS PANEL, [id number] 02:08:57* Test Item Value Reference Range Interpretation Comme nts HEPATITIS A IgM (test code = 78060) NON-REACTIVE NON-REACTIVE HEPATITIS B CORE IgM (test code = 4644) NON-REACTIVE NON-REACTIVE HEPATITIS B SURF AG (test code = 2739) NON-REACTIVE NON-REACTIVE HEPATITIS C ANTIBODY (test code = 4675) NON-REACTIVE NON-REACTIVE INTERPRETATION HEPATITIS A: (test code = 2552) (NOTE) Hepatitis A serology shows no evidence of acute hepatitis A. INTERPRETATION HEPATITIS B: (test code = 05584) (NOTE) Hepatitis B serology shows no evidence of acute hepatitis B andno indication of exposure to hepatitis B virus in the previous huyen eight months. INTERPRETATION HEPATITIS C: (test code = 01408) (NOTE) Hepatitis C serology shows no evidence of exposure to hepatitisC virus at this time. It can take up to 12 months after exposure tothe hepatitis C virus for antibodies to become detectable in the blood in certain patients. [id number] 23:37:07* Test Item Value Reference Range Interpretation Comme nts RPR RESULT (test code = 3501) NON-REACTIVE NON-REACTIVE RPR TITER (test code = 3500) NOT INDIC. TITER NOT INDIC. CT/NG, NAAT, [id number] 14:03:18* Test Item Value Reference Range Interpretation Comme nts CHLAMYDIA, NAAT, URINE (test code = 79147) NEGATIVE NEGATIVE Testing is perfo rmed with Elpidio MIRA 6800/8800 systems usingreal-time polymerase chain reaction (PCR) method. A negative result does not exclude low level infection, specimensampling error, or collection error. GONORRHEA, NAAT, URINE (test code = 33848) NEGATIVE NEGATIVE Testing is perfo rmed with Elpidio MIRA 6800/8800 systems usingreal-time polymerase chain reaction (PCR) method. A negative result does not exclude low level infection, specimensampling error, or collection error. UNLESS OTHERWISE INDICATED, ALL TESTING PERFORMED AT [facility] [address] [place] [address] MANUFACTURER'S SERVICE REPRESENTATIVE: SHAYY SANTOS M.D. CLIA NUMBER [id number] [facility] [place]. [id number] CULTURE, [id number] 11:36:54SPECIMEN NUMBER: [id number] CULTURE, URINE SPECIMEN NUMBER: [id number] SPECIMEN COMMENT: URINE SOURCE: URINE REPORT STATUS: FINAL FINAL REPORT: 07/07/2023 50-100,000 CFU/ML UROGENITAL LINDSAY PRESENT NO COMMON PATHOGENSTRICHOMONAS, NAAT, [id number] 16:23:16* Test Item Value Reference Range Interpretation Comme nts TRICHOMONAS, NAAT, URINE (test code = 32059) NEGATIVE NEGATIVE Testing is perfo rmed with Elpidio MIRA 6800/8800 method usingreal-time polymerase chain reaction (PCR) method. A negative result does not exclude low level infection, specimensampling error, or collection error. CHLAMYDIA, NAAT, [id number] 16:22:13* Test Item Value Reference Range Interpretation Comme nts CHLAMYDIA, NAAT, URINE (test code = 71465) POSITIVE NEGATIVE A Testing is perfo rmed with Elpidio MIRA 6800/8800 systems usingreal-time polymerase chain reaction (PCR) method. GONORRHEA, NAAT, [id number] 16:22:13* Test Item Value Reference Range Interpretation Comme nts GONORRHEA, NAAT, URINE (test code = 68719) NEGATIVE NEGATIVE Testing is perfo rmed with Elpidio MIRA 6800/8800 systems usingreal-time polymerase chain reaction (PCR) method. A negative result does not exclude low level infection, specimensampling error, or collection error. RPR REFLEX TO T. PALLIDUM - [id number] 05:31:29* Test Item Value Reference Range Interpretation Comme nts RPR (test code = 28351) NON-REACTIVE NON-REACTIVE RPR TITER (test code = 3500) NOT INDIC. TITER NOT INDIC. HEPATITIS PANEL, [id number] 05:05:42* Test Item Value Reference Range Interpretation Comme nts HEPATITIS A IgM (test code = 78240) NON-REACTIVE NON-REACTIVE HEPATITIS B CORE IgM (test code = 4644) NON-REACTIVE NON-REACTIVE HEPATITIS B SURF AG (test code = 2739) NON-REACTIVE NON-REACTIVE HEPATITIS C ANTIBODY (test code = 4675) NON-REACTIVE NON-REACTIVE INTERPRETATION HEPATITIS A: (test code = 2552) (NOTE) Hepatitis A sero logy shows no evidence of acute hepatitis A. INTERPRETATION HEPATITIS B: (test code = 21777) (NOTE) Hepatitis B sero logy shows no evidence of acute hepatitis B andno indication of exposure to hepatitis B virus in the previous huyen eight months. INTERPRETATION HEPATITIS C: (test code = 08289) (NOTE) Hepatitis C sero logy shows no evidence of exposure to hepatitisC virus at this time. It can take up to 12 months after exposure tothe hepatitis C virus for antibodies to become detectable in the blood in certain patients. [facility] has important pathology staff changes effective 10/16/2022. New pathology staff will provide uninterrupted, excellent patient care and clinical consultation. See URL: [email or web address]; to ([email or web address]. UNLESS OTHERWISE INDICATED, ALL TESTING PERFORMED AT [facility] [address] [place] [address] MANUFACTURER'S SERVICE REPRESENTATIVE: CAMPOS ALVARENGA M.D. CLIA NUMBER [id number] [facility] [place]. [id number] HIV 1/2 4TH GEN, RFLX [id number] 05:05:42* Test Item Value Reference Range Interpretation Comme nts HIV 1/2 4TH GEN, RFLX CONF ( test code = 3514) NON-REACTIVE NON-REACTIVE CHLAMYDIA, NAAT, [id number] 13:11:20* Test Item Value Reference Range Interpretation Comme nts CHLAMYDIA, NAAT (test code = 31213) NEGATIVE NEGATIVE IMPORTANT NO KWAKU: SEE ANNOUNCEMENT AT [email or web address] Note: Assay methodology is nucleic acid amplification by media assistant mediated amplification (TMA) utilizing the Aptima Combo 2 Assay. GONORRHEA, NAAT, [id number] 13:11:20* Test Item Value Reference Range Interpretation Comme nts GONORRHEA, NAAT (test code = 00108) NEGATIVE NEGATIVE IMPORTANT NO KWAKU: SEE ANNOUNCEMENT AT [email or web address] Note: Assay methodology is nucleic acid amplification by media assistant mediated amplification (TMA) utilizing the Aptima Combo 2 Assay. UNLESS OTHERWISE INDICATED, [facility] [address] [place] [address] MANUFACTURER'S SERVICE REPRESENTATIVE: CAMPOS ALVARENGA M.D. [place] NUMBER [id number] [facility] [place]. [id number] CHLAMYDIA, AMPLIFIED, [id number] 00:00:00* Test Item Value Reference Range Interpretation Comme nts CHLAMYDIA, NAAT (test code = 26574) NEGATIVE CHLAMYDIA, AMPLIFIED, [id number] 00:00:00* Test Item Value Reference Range Interpretation Comme nts CHLAMYDIA, NAAT (test code = 05168) NEGATIVE GC, AMPLIFIED, [id number] 00:00:00* Test Item Value Reference Range Interpretation Comme nts GONORRHEA, NAAT (test code = 28616) NEGATIVE GC, AMPLIFIED, [id number] 00:00:00* Test Item Value Reference Range Interpretation Comme nts GONORRHEA, NAAT (test code = 29260) NEGATIVE CHLAMYDIA, AMPLIFIED, [id number] 00:00:00* Test Item Value Reference Range Interpretation Comme nts CHLAMYDIA, NAAT (test code = 97788) NEGATIVE CHLAMYDIA, AMPLIFIED, [id number] 00:00:00* Test Item Value Reference Range Interpretation Comme nts CHLAMYDIA, NAAT (test code = 84711) NEGATIVE GC, AMPLIFIED, [id number] 00:00:00* Test Item Value Reference Range Interpretation Comme nts GONORRHEA, NAAT (test code = 72303) NEGATIVE GC, AMPLIFIED, [id number] 00:00:00* Test Item Value Reference Range Interpretation Comme nts GONORRHEA, NAAT (test code = 16315) NEGATIVE CHLAMYDIA, AMPLIFIED, [id number] 00:00:00* Test Item Value Reference Range Interpretation Comme nts CHLAMYDIA, NAAT (test code = 93794) NEGATIVE GC, AMPLIFIED, [id number] 00:00:00* Test Item Value Reference Range Interpretation Comme nts GONORRHEA, NAAT (test code = 19850) NEGATIVE CHLAMYDIA, AMPLIFIED, [id number] 00:00:00* Test Item Value Reference Range Interpretation Comme nts CHLAMYDIA, NAAT (test code = 26634) NEGATIVE GC, AMPLIFIED, [id number] 00:00:00* Test Item Value Reference Range Interpretation Comme nts GONORRHEA, NAAT (test code = 69673) NEGATIVE CHLAMYDIA, AMPLIFIED, [id number] 00:00:00* Test Item Value Reference Range Interpretation Comme nts CHLAMYDIA, NAAT (test code = 83872) NEGATIVE GC, AMPLIFIED, [id number] 00:00:00* Test Item Value Reference Range Interpretation Comme nts GONORRHEA, NAAT (test code = 27702) NEGATIVE CHLAMYDIA, AMPLIFIED, [id number] 00:00:00* Test Item Value Reference Range Interpretation Comme nts CHLAMYDIA, NAAT (test code = 13052) NEGATIVE CHLAMYDIA, AMPLIFIED, [id number] 00:00:00* Test Item Value Reference Range Interpretation Comme nts CHLAMYDIA, NAAT (test code = 14165) NEGATIVE GC, AMPLIFIED, [id number] 00:00:00* Test Item Value Reference Range Interpretation Comme nts GONORRHEA, NAAT (test code = 78646) NEGATIVE GC, AMPLIFIED, [id number] 00:00:00* Test Item Value Reference Range Interpretation Comme nts GONORRHEA, NAAT (test code = 41086) NEGATIVE CHLAMYDIA, AMPLIFIED, [id number] 00:00:00* Test Item Value Reference Range Interpretation Comme nts CHLAMYDIA, NAAT (test code = 86705) NEGATIVE GC, AMPLIFIED, [id number] 00:00:00* Test Item Value Reference Range Interpretation Comme nts GONORRHEA, NAAT (test code = 18540) NEGATIVE CHLAMYDIA, AMPLIFIED, [id number] 00:00:00* Test Item Value Reference Range Interpretation Comme nts CHLAMYDIA, NAAT (test code = 64816) NEGATIVE CHLAMYDIA, AMPLIFIED, [id number] 00:00:00* Test Item Value Reference Range Interpretation Comme nts CHLAMYDIA, NAAT (test code = 12884) NEGATIVE GC, AMPLIFIED, [id number] 00:00:00* Test Item Value Reference Range Interpretation Comme nts GONORRHEA, NAAT (test code = 22259) NEGATIVE GC, AMPLIFIED, [id number] 00:00:00* Test Item Value Reference Range Interpretation Comme nts GONORRHEA, NAAT (test code = 90917) NEGATIVE CT/NG, NAAT, [id number] 19:10:11* Test Item Value Reference Range Interpretation Comme nts GONORRHEA, NAAT (test code = 88642) NEGATIVE NEGATIVE IMPORTANT NO KWAKU: SEE ANNOUNCEMENT AT [email or web address] Note: Assay methodology is nucleic acid amplification by media assistant mediated amplification (TMA) utilizing the Aptima Combo 2 Assay. CHLAMYDIA, NAAT (test code = 63197) POSITIVE NEGATIVE A IMPORTANT NO KWAKU: SEE ANNOUNCEMENT AT [email or web address] Note: Assay methodology is nucleic acid amplification by media assistant mediated amplification (TMA) utilizing the Aptima Combo 2 Assay. UNLESS OTHERWISE INDICATED, ALL TESTING [facility]FORMED [facility] [address] [place] [id number] MANUFACTURER'S SERVICE REPRESENTATIVE: CAPMOS ALVARENGA M.D. CLIA NUMBER [id number] [place]. [id number] GC AND CHLAMYDIA, AMPLIFIED, [id number] 00:00:00* Test Item Value Reference Range Interpretation Comme nts GONORRHEA, NAAT (test code = 00043) NEGATIVE CHLAMYDIA, NAAT (test code = 34855) POSITIVE GC AND CHLAMYDIA, AMPLIFIED, [id number] 00:00:00* Test Item Value Reference Range Interpretation Comme nts GONORRHEA, NAAT (test code = 68820) NEGATIVE CHLAMYDIA, NAAT (test code = 59895) POSITIVE GC AND CHLAMYDIA, AMPLIFIED, [id number] 00:00:00* Test Item Value Reference Range Interpretation Comme nts GONORRHEA, NAAT (test code = 22266) NEGATIVE CHLAMYDIA, NAAT (test code = 99501) POSITIVE GC AND CHLAMYDIA, AMPLIFIED, [id number] 00:00:00* Test Item Value Reference Range Interpretation Comme nts GONORRHEA, NAAT (test code = 72694) NEGATIVE CHLAMYDIA, NAAT (test code = 45210) POSITIVE GC AND CHLAMYDIA, AMPLIFIED, [id number] 00:00:00* Test Item Value Reference Range Interpretation Comme nts GONORRHEA, NAAT (test code = 92389) NEGATIVE CHLAMYDIA, NAAT (test code = 67386) POSITIVE GC AND CHLAMYDIA, AMPLIFIED, [id number] 00:00:00* Test Item Value Reference Range Interpretation Comme nts GONORRHEA, NAAT (test code = 26387) NEGATIVE CHLAMYDIA, NAAT (test code = 95936) POSITIVE GC AND CHLAMYDIA, AMPLIFIED, [id number] 00:00:00* Test Item Value Reference Range Interpretation Comme nts GONORRHEA, NAAT (test code = 98121) NEGATIVE CHLAMYDIA, NAAT (test code = 80284) POSITIVE GC AND CHLAMYDIA, AMPLIFIED, [id number] 00:00:00* Test Item Value Reference Range Interpretation Comme nts GONORRHEA, NAAT (test code = 17816) NEGATIVE CHLAMYDIA, NAAT (test code = 29011) POSITIVE GC AND CHLAMYDIA, AMPLIFIED, [id number] 00:00:00* Test Item Value Reference Range Interpretation Comme nts GONORRHEA, NAAT (test code = 70154) NEGATIVE CHLAMYDIA, NAAT (test code = 78187) POSITIVE GC AND CHLAMYDIA, AMPLIFIED, [id number] 00:00:00* Test Item Value Reference Range Interpretation Comme nts GONORRHEA, NAAT (test code = 58780) NEGATIVE CHLAMYDIA, NAAT (test code = 16709) POSITIVE GC AND CHLAMYDIA, AMPLIFIED, [id number] 00:00:00* Test Item Value Reference Range Interpretation Comme nts GONORRHEA, NAAT (test code = 55279) NEGATIVE CHLAMYDIA, NAAT (test code = 05702) POSITIVE GC AND CHLAMYDIA, AMPLIFIED, [id number] 00:00:00* Test Item Value Reference Range Interpretation Comme nts GONORRHEA, NAAT (test code = 37810) NEGATIVE CHLAMYDIA, NAAT (test code = 84136) POSITIVE HIV AB/AG COMBO RFLX [id number] 00:00:00* Test Item Value Reference Range Interpretation Comme nts HIV 1/2 4TH GEN, RFLX CONF ( test code = 3514) NON-REACTIVE HIV AB/AG COMBO RFLX [id number] 00:00:00* Test Item Value Reference Range Interpretation Comme nts HIV 1/2 4TH GEN, RFLX CONF ( test code = 3514) NON-REACTIVE ACUTE HEPATITIS [id number] 00:00:00* Test Item Value Reference Range Interpretation Comme nts HEPATITIS A IgM (test code = 79992) NON-REACTIVE HEPATITIS B CORE IgM (test c ode = 4644) NON-REACTIVE HEPATITIS B SURF AG (test co de = 2739) NON-REACTIVE HEPATITIS C ANTIBODY (test c ode = 4675) NON-REACTIVE INTERPRETATION HEPATITIS A: (test code = 2552) (NOTE) INTERPRETATION HEPATITIS B: (test code = 07816) (NOTE) INTERPRETATION HEPATITIS C: (test code = 80062) (NOTE) ACUTE HEPATITIS [id number] 00:00:00* Test Item Value Reference Range Interpretation Comme nts HEPATITIS A IgM (test code = 25088) NON-REACTIVE HEPATITIS B CORE IgM (test c ode = 4644) NON-REACTIVE HEPATITIS B SURF AG (test co de = 2739) NON-REACTIVE HEPATITIS C ANTIBODY (test c ode = 4675) NON-REACTIVE INTERPRETATION HEPATITIS A: (test code = 2552) (NOTE) INTERPRETATION HEPATITIS B: (test code = 04653) (NOTE) INTERPRETATION HEPATITIS C: (test code = 25539) (NOTE) GC, AMPLIFIED, [id number] 00:00:00* Test Item Value Reference Range Interpretation Comme nts GONORRHEA, NAAT (test code = 56607) NEGATIVE GC, AMPLIFIED, [id number] 00:00:00* Test Item Value Reference Range Interpretation Comme nts GONORRHEA, NAAT (test code = 48517) NEGATIVE CHLAMYDIA, AMPLIFIED, [id number] 00:00:00* Test Item Value Reference Range Interpretation Comme nts CHLAMYDIA, NAAT (test code = 78814) POSITIVE CHLAMYDIA, AMPLIFIED, [id number] 00:00:00* Test Item Value Reference Range Interpretation Comme nts CHLAMYDIA, NAAT (test code = 04377) POSITIVE HIV AB/AG COMBO RFLX [id number] 00:00:00* Test Item Value Reference Range Interpretation Comme nts HIV 1/2 4TH GEN, RFLX CONF ( test code = 3514) NON-REACTIVE HIV AB/AG COMBO RFLX [id number] 00:00:00* Test Item Value Reference Range Interpretation Comme nts HIV 1/2 4TH GEN, RFLX CONF ( test code = 3514) NON-REACTIVE ACUTE HEPATITIS [id number] 00:00:00* Test Item Value Reference Range Interpretation Comme nts HEPATITIS A IgM (test code = 93304) NON-REACTIVE HEPATITIS B CORE IgM (test c ode = 4644) NON-REACTIVE HEPATITIS B SURF AG (test co de = 2739) NON-REACTIVE HEPATITIS C ANTIBODY (test c ode = 4675) NON-REACTIVE INTERPRETATION HEPATITIS A: (test code = 2552) (NOTE) INTERPRETATION HEPATITIS B: (test code = 68547) (NOTE) INTERPRETATION HEPATITIS C: (test code = 12693) (NOTE) ACUTE HEPATITIS [id number] 00:00:00* Test Item Value Reference Range Interpretation Comme nts HEPATITIS A IgM (test code = 90641) NON-REACTIVE HEPATITIS B CORE IgM (test c ode = 4644) NON-REACTIVE HEPATITIS B SURF AG (test co de = 2739) NON-REACTIVE HEPATITIS C ANTIBODY (test c ode = 4675) NON-REACTIVE INTERPRETATION HEPATITIS A: (test code = 2552) (NOTE) INTERPRETATION HEPATITIS B: (test code = 55537) (NOTE) INTERPRETATION HEPATITIS C: (test code = 35809) (NOTE) GC, AMPLIFIED, [id number] 00:00:00* Test Item Value Reference Range Interpretation Comme nts GONORRHEA, NAAT (test code = 13177) NEGATIVE GC, AMPLIFIED, [id number] 00:00:00* Test Item Value Reference Range Interpretation Comme nts GONORRHEA, NAAT (test code = 91430) NEGATIVE CHLAMYDIA, AMPLIFIED, [id number] 00:00:00* Test Item Value Reference Range Interpretation Comme nts CHLAMYDIA, NAAT (test code = 01511) POSITIVE CHLAMYDIA, AMPLIFIED, [id number] 00:00:00* Test Item Value Reference Range Interpretation Comme nts CHLAMYDIA, NAAT (test code = 72066) POSITIVE HIV AB/AG COMBO RFLX [id number] 00:00:00* Test Item Value Reference Range Interpretation Comme nts HIV 1/2 4TH GEN, RFLX CONF ( test code = 3514) NON-REACTIVE ACUTE HEPATITIS [id number] 00:00:00* Test Item Value Reference Range Interpretation Comme nts HEPATITIS A IgM (test code = 70821) NON-REACTIVE HEPATITIS B CORE IgM (test c ode = 4644) NON-REACTIVE HEPATITIS B SURF AG (test co de = 2739) NON-REACTIVE HEPATITIS C ANTIBODY (test c ode = 4675) NON-REACTIVE INTERPRETATION HEPATITIS A: (test code = 2552) (NOTE) INTERPRETATION HEPATITIS B: (test code = 58963) (NOTE) INTERPRETATION HEPATITIS C: (test code = 39366) (NOTE) GC, AMPLIFIED, [id number] 00:00:00* Test Item Value Reference Range Interpretation Comme nts GONORRHEA, NAAT (test code = 92379) NEGATIVE CHLAMYDIA, AMPLIFIED, [id number] 00:00:00* Test Item Value Reference Range Interpretation Comme nts CHLAMYDIA, NAAT (test code = 26999) POSITIVE HIV AB/AG COMBO RFLX [id number] 00:00:00* Test Item Value Reference Range Interpretation Comme nts HIV 1/2 4TH GEN, RFLX CONF ( test code = 3514) NON-REACTIVE ACUTE HEPATITIS [id number] 00:00:00* Test Item Value Reference Range Interpretation Comme nts HEPATITIS A IgM (test code = 82296) NON-REACTIVE HEPATITIS B CORE IgM (test c ode = 4644) NON-REACTIVE HEPATITIS B SURF AG (test co de = 2739) NON-REACTIVE HEPATITIS C ANTIBODY (test c ode = 4675) NON-REACTIVE INTERPRETATION HEPATITIS A: (test code = 2552) (NOTE) INTERPRETATION HEPATITIS B: (test code = 06143) (NOTE) INTERPRETATION HEPATITIS C: (test code = 18167) (NOTE) GC, AMPLIFIED, [id number] 00:00:00* Test Item Value Reference Range Interpretation Comme nts GONORRHEA, NAAT (test code = 53887) NEGATIVE CHLAMYDIA, AMPLIFIED, [id number] 00:00:00* Test Item Value Reference Range Interpretation Comme nts CHLAMYDIA, NAAT (test code = 62153) POSITIVE HIV AB/AG COMBO RFLX [id number] 00:00:00* Test Item Value Reference Range Interpretation Comme nts HIV 1/2 4TH GEN, RFLX CONF ( test code = 3514) NON-REACTIVE ACUTE HEPATITIS [id number] 00:00:00* Test Item Value Reference Range Interpretation Comme nts HEPATITIS A IgM (test code = 94852) NON-REACTIVE HEPATITIS B CORE IgM (test c ode = 4644) NON-REACTIVE HEPATITIS B SURF AG (test co de = 2739) NON-REACTIVE HEPATITIS C ANTIBODY (test c ode = 4675) NON-REACTIVE INTERPRETATION HEPATITIS A: (test code = 2552) (NOTE) INTERPRETATION HEPATITIS B: (test code = 98011) (NOTE) INTERPRETATION HEPATITIS C: (test code = 71151) (NOTE) GC, AMPLIFIED, [id number] 00:00:00* Test Item Value Reference Range Interpretation Comme nts GONORRHEA, NAAT (test code = 88763) NEGATIVE CHLAMYDIA, AMPLIFIED, [id number] 00:00:00* Test Item Value Reference Range Interpretation Comme nts CHLAMYDIA, NAAT (test code = 85768) POSITIVE HIV AB/AG COMBO RFLX [id number] 00:00:00* Test Item Value Reference Range Interpretation Comme nts HIV 1/2 4TH GEN, RFLX CONF ( test code = 3514) NON-REACTIVE HIV AB/AG COMBO RFLX [id number] 00:00:00* Test Item Value Reference Range Interpretation Comme nts HIV 1/2 4TH GEN, RFLX CONF ( test code = 3514) NON-REACTIVE ACUTE HEPATITIS [id number] 00:00:00* Test Item Value Reference Range Interpretation Comme nts HEPATITIS A IgM (test code = 49472) NON-REACTIVE HEPATITIS B CORE IgM (test c ode = 4644) NON-REACTIVE HEPATITIS B SURF AG (test co de = 2739) NON-REACTIVE HEPATITIS C ANTIBODY (test c ode = 4675) NON-REACTIVE INTERPRETATION HEPATITIS A: (test code = 2552) (NOTE) INTERPRETATION HEPATITIS B: (test code = 43923) (NOTE) INTERPRETATION HEPATITIS C: (test code = 97415) (NOTE) ACUTE HEPATITIS [id number] 00:00:00* Test Item Value Reference Range Interpretation Comme nts HEPATITIS A IgM (test code = 83709) NON-REACTIVE HEPATITIS B CORE IgM (test c ode = 4644) NON-REACTIVE HEPATITIS B SURF AG (test co de = 2739) NON-REACTIVE HEPATITIS C ANTIBODY (test c ode = 4675) NON-REACTIVE INTERPRETATION HEPATITIS A: (test code = 2552) (NOTE) INTERPRETATION HEPATITIS B: (test code = 60642) (NOTE) INTERPRETATION HEPATITIS C: (test code = 28951) (NOTE) GC, AMPLIFIED, [id number] 00:00:00* Test Item Value Reference Range Interpretation Comme nts GONORRHEA, NAAT (test code = 87543) NEGATIVE GC, AMPLIFIED, [id number] 00:00:00* Test Item Value Reference Range Interpretation Comme nts GONORRHEA, NAAT (test code = 00846) NEGATIVE CHLAMYDIA, AMPLIFIED, [id number] 00:00:00* Test Item Value Reference Range Interpretation Comme nts CHLAMYDIA, NAAT (test code = 69665) POSITIVE CHLAMYDIA, AMPLIFIED, [id number] 00:00:00* Test Item Value Reference Range Interpretation Comme nts CHLAMYDIA, NAAT (test code = 85054) POSITIVE HIV AB/AG COMBO RFLX [id number] 00:00:00* Test Item Value Reference Range Interpretation Comme nts HIV 1/2 4TH GEN, RFLX CONF ( test code = 3514) NON-REACTIVE ACUTE HEPATITIS [id number] 00:00:00* Test Item Value Reference Range Interpretation Comme nts HEPATITIS A IgM (test code = 70533) NON-REACTIVE HEPATITIS B CORE IgM (test c ode = 4644) NON-REACTIVE HEPATITIS B SURF AG (test co de = 2739) NON-REACTIVE HEPATITIS C ANTIBODY (test c ode = 4675) NON-REACTIVE INTERPRETATION HEPATITIS A: (test code = 2552) (NOTE) INTERPRETATION HEPATITIS B: (test code = 99780) (NOTE) INTERPRETATION HEPATITIS C: (test code = 51739) (NOTE) HIV AB/AG COMBO RFLX [id number] 00:00:00* Test Item Value Reference Range Interpretation Comme nts HIV 1/2 4TH GEN, RFLX CONF ( test code = 3514) NON-REACTIVE HIV AB/AG COMBO RFLX [id number] 00:00:00* Test Item Value Reference Range Interpretation Comme nts HIV 1/2 4TH GEN, RFLX CONF ( test code = 3514) NON-REACTIVE GC, AMPLIFIED, [id number] 00:00:00* Test Item Value Reference Range Interpretation Comme nts GONORRHEA, NAAT (test code = 00843) NEGATIVE ACUTE HEPATITIS [id number] 00:00:00* Test Item Value Reference Range Interpretation Comme nts HEPATITIS A IgM (test code = 97975) NON-REACTIVE HEPATITIS B CORE IgM (test c ode = 4644) NON-REACTIVE HEPATITIS B SURF AG (test co de = 2739) NON-REACTIVE HEPATITIS C ANTIBODY (test c ode = 4675) NON-REACTIVE INTERPRETATION HEPATITIS A: (test code = 2552) (NOTE) INTERPRETATION HEPATITIS B: (test code = 82268) (NOTE) INTERPRETATION HEPATITIS C: (test code = 37205) (NOTE) ACUTE HEPATITIS [id number] 00:00:00* Test Item Value Reference Range Interpretation Comme nts HEPATITIS A IgM (test code = 61746) NON-REACTIVE HEPATITIS B CORE IgM (test c ode = 4644) NON-REACTIVE HEPATITIS B SURF AG (test co de = 2739) NON-REACTIVE HEPATITIS C ANTIBODY (test c ode = 4675) NON-REACTIVE INTERPRETATION HEPATITIS A: (test code = 2552) (NOTE) INTERPRETATION HEPATITIS B: (test code = 56694) (NOTE) INTERPRETATION HEPATITIS C: (test code = 72640) (NOTE) GC, AMPLIFIED, [id number] 00:00:00* Test Item Value Reference Range Interpretation Comme nts GONORRHEA, NAAT (test code = 46268) NEGATIVE GC, AMPLIFIED, [id number] 00:00:00* Test Item Value Reference Range Interpretation Comme nts GONORRHEA, NAAT (test code = 95893) NEGATIVE CHLAMYDIA, AMPLIFIED, [id number] 00:00:00* Test Item Value Reference Range Interpretation Comme nts CHLAMYDIA, NAAT (test code = 82667) POSITIVE CHLAMYDIA, AMPLIFIED, [id number] 00:00:00* Test Item Value Reference Range Interpretation Comme nts CHLAMYDIA, NAAT (test code = 60587) POSITIVE CHLAMYDIA, AMPLIFIED, [id number] 00:00:00* Test Item Value Reference Range Interpretation Comme nts CHLAMYDIA, NAAT (test code = 35763) POSITIVE erythrocyte (RBC) [id number] 15:42:00* Test Item Value Reference Range Interpretation Comme nts erythrocyte (RBC) count (ruslan t code = 67) 4.30 X10E6/UL 3.77-5.28 [facility], [id number] 15:42:00* Test Item Value Reference Range Interpretation Comme nts leukocyte count, blood (test code = 68) 9.7 X10E3/UL 3.4-10.8 [facility]hepat[facility] surface [id number] 15:42:00* Test Item Value Reference Range Interpretation Comme nts hepatitis B surface antigen (test code = 79) Negative Negative [facility] [id number] 15:42:00* Test Item Value Reference Range Interpretation Comme nts Rh antibody (test code = 256) Negative Negative [facility] glucose, 1 hour after 50 gm oral [id number] 15:42:00* Test Item Value Reference Range Interpretation Comme nts blood glucose, 1 hour after 50 gm oral glucose (test code = 1039) 111 mg/dL 65-139 [facility]HIV[facility]CM[facility] (Chemiluminescent Microparticle Immuno Assay) 2019-10-14 15:42:00* Test Item Value Reference Range Interpretation Comme nts HIV-CMIA (Chemiluminescent Microparticle Immuno Assay) (test code = 275997) Non Reactive Non Reactive [facility]rapid plasma reagin antibody, [id number] 15:42:00* Test Item Value Reference Range Interpretation Comme nts rapid plasma reagin antibody , serum (test code = 308) Non Reactive Non Reactive [facility]rubella antibody, serum, [id number] 15:42:00* Test Item Value Reference Range Interpretation Comme nts rubella antibody, serum, IgG (test code = 81) 1.33 Immune >0.99 [facility]Rh [id number] 15:42:00* Test Item Value Reference Range Interpretation Comme nts Rh antigen (test code = 255) Positive [facility] LincolnABO blood [id number] 15:42:00* Test Item Value Reference Range Interpretation Comme nts ABO blood group (test code = 116) A [facility] LincolnNeisseria gonorrhoeae DNA [id number] 15:42:00* Test Item Value Reference Range Interpretation Comme nts Neisseria gonorrhoeae DNA pr obe (test code = 31155-5) Negative Negative [facility]chlamydia DNA [id number] 15:42:00* Test Item Value Reference Range Interpretation Comme nts chlamydia DNA probe (test co de = 96806-2) Negative Negative [facility] Lincolnimmature granulocytes, percentage of total cells, blood 2019-10-14 15:42:00* Test Item Value Reference Range Interpretation Comme nts immature granulocytes, perce ntage of total cells, blood (test code = 915511) 0 % [facility]nbasophil count, [id number] 15:42:00* Test Item Value Reference Range Interpretation Comme nts basophil count, absolute (te st code = 43296) 0.0 x10E3/uL 0.0-0.3 [facility] LincolnEosinophil Absolute [id number] 15:42:00* Test Item Value Reference Range Interpretation Comme nts Eosinophil Absolute Count (t est code = 067808) 0.0 X10E3/UL 0.0-0.4 [facility]monocyte count, blood, [id number] 15:42:00* Test Item Value Reference Range Interpretation Comme nts monocyte count, blood, autom ated (test code = 3076) 0.8 X10E3/UL 0.1-0.9 [facility]lymph[facility], blood, [id number] 15:42:00* Test Item Value Reference Range Interpretation Comme nts lymphocyte count, blood, automated (test code = 3074) 1.2 X10E3/UL 0.7-3.1 [facility]Absolute [id number] 15:42:00* Test Item Value Reference Range Interpretation Comme nts Absolute Neutrophils (test c ode = 30007) 7.7 X10E3/UL 1.4-7.0 H [facility]nbasophils as percent of blood [id number] 15:42:00* Test Item Value Reference Range Interpretation Comme nts basophils as percent of bloo d leukocytes (test code = 2426) 0 % [facility]neosinophils as percent of blood [id number] 15:42:00* Test Item Value Reference Range Interpretation Comme nts eosinophils as percent of bl ood leukocytes (test code = 4170) 0 % [facility]monocytes as percent of blood [id number] 15:42:00* Test Item Value Reference Range Interpretation Comme nts monocytes as percent of bloo d leukocytes (test code = 2421) 8 % [facility]lymphocytes as percent of blood [id number] 15:42:00* Test Item Value Reference Range Interpretation Comme nts lymphocytes as percent of bl ood leukocytes (test code = 317) 12 % [facility]neutrophils as percent of blood [id number] 15:42:00* Test Item Value Reference Range Interpretation Comme nts neutrophils as percent of bl ood leukocytes (test code = 316) 80 % [facility] Lincolnplatelet [id number] 15:42:00* Test Item Value Reference Range Interpretation Comme nts platelet count (test code = 66) 422 X10E3/UL 150-450 [facility]red blood cell distribution [id number] 15:42:00* Test Item Value Reference Range Interpretation Comme [facility] red blood cell distribution width (test code = 1030) 14.1 % 11.7-15.4 [facility] Lincolnmean corpuscular hemoglobin concentration, [id number] 15:42:00* Test Item Value Reference Range Interpretation Comme nts mean corpuscular hemoglobin concentration, RBC (test code = 1029) 32.3 G/DL 31.5-35.7 [facility] [id number] 15:42:00* Test Item Value Reference Range Interpretation Comme nts mean corpuscular hemoglobin, RBC (test code = 1031) 24.2 pg 26.6-33.0 L [facility] volume, [id number] 15:42:00* Test Item Value Reference Range Interpretation Comme nts mean corpuscular volume, RBC (test code = 315) 75 fL 79-97 L [facility]hematocrit, [id number] 15:42:00* Test Item Value Reference Range Interpretation Comme nts hematocrit, blood (test code = 64) 32.2 % 34.0-46.6 L [facility] Lincolnhemoglobin, [id number] 15:42:00* Test Item Value Reference Range Interpretation Comme nts hemoglobin, blood (test code = 65) 10.4 g/dL 11.1-15.9 L [facility] Lincolnurine [id number] 15:14:00* Test Item Value Reference Range Interpretation Comme nts urine culture (test code = 15384) No growth [facility] LincolnNeisseria gonorrhoeae DNA [id number] 15:14:00* Test Item Value Reference Range Interpretation Comme nts Neisseria gonorrhoeae DNA pr obe (test code = 27271-3) Negative Negative [facility]chlamydia DNA [id number] 15:14:00* Test Item Value Reference Range Interpretation Comme nts chlamydia DNA probe (test co de = 67525-3) Negative Negative [facility] LincolnVaginal Group B Strep by Real-Time [id number] 16:28:00 * Test Item Value Reference Range Interpretation Comme nts Vaginal Group B Strep by [place] l-Time PCR (test code = 778092) Negative Negative [facility] Lincolnurine [id number] 16:27:00* Test Item Value Reference Range Interpretation Comme nts urine culture (test code = 38359) [facility], semiquantitative (dipstick)2019-10-07 16:27:00* Test Item Value Reference Range Interpretation Comme nts protein, urine, semiquantita tive (dipstick) (test code = 1753-3) 33.6 [facility] L[facility]olncreatinine, random, [id number] 16:27:00* Test Item Value Reference Range Interpretation Comme nts creatinine, random, urine (t est code = 5167) 121.8 mg/dL [facility]incolnalanine aminotransferase (SGPT), [id number] 15:59:00 * Test Item Value Reference Range Interpretation Comme nts alanine aminotransferase (SG PT), serum (test code = 40) 13 1/L 0-24 [facility] Lincolnaspartate aminotransferase (SGOT), [id number] 15:59:00* Test Item Value Reference Range Interpretation Comme nts aspartate aminotransferase ( SGOT), serum (test code = 39) 16 1/L 0-40 [facility] LincolnHIV-CMIA (Chemiluminescent Microparticle Immuno Assay) 2019-10-07 15:59:00* Test Item Value Reference Range Interpretation Comme nts HIV-CMIA (Chemiluminescent Microparticle Immuno Assay) (test code = 731816) Non Reactive Non Reactive [facility] Lincolnrapid plasma reagin antibody, [id number] 15:59:00* Test Item Value Reference Range Interpretation Comme nts rapid plasma reagin antibody , serum (test code = 308) Non Reactive Non Reactive [facility] Lincolnimmature granulocytes, percentage of total cells, blood 2019-10-07 15:59:00* Test Item Value Reference Range Interpretation Comme nts immature granulocytes, perce ntage of total cells, blood (test code = 468579) 3 % [facility]nbasophil count, [id number] 15:59:00* Test Item Value Reference Range Interpretation Comme nts basophil count, absolute (te st code = 71357) 0.0 x10E3/uL 0.0-0.3 [facility] LincolnEosinophil Absolute [id number] 15:59:00* Test Item Value Reference Range Interpretation Comme nts Eosinophil Absolute Count (t est code = 948066) 0.1 X10E3/UL 0.0-0.4 [facility]mon[facility], blood, [id number] 15:59:00* Test Item Value Reference Range Interpretation Comme nts monocyte count, blood, autom ated (test code = 3076) 1.2 X10E3/UL 0.1-0.9 H [facility]lymphocyte count, blood, [id number] 15:59:00* Test Item Value Reference Range Interpretation Comme nts lymphocyte count, blood, automated (test code = 3074) 1.6 X10E3/UL 0.7-3.1 [facility] LincolnAbsolute Semcjftocng9553-89-57 15:59:00* Test Item Value Reference Range Interpretation Comme nts Absolute Neutrophils (test c ode = 74488) 9.4 X10E3/UL 1.4-7.0 H [facility]nbasophils as percent of blood mbvoiopjsq2353-89-68 15:59:00* Test Item Value Reference Range Interpretation Comme nts basophils as percent of bloo d leukocytes (test code = 2426) 0 % [facility] percent of blood [id number] 15:59:00* Test Item Value Reference Range Interpretation Comme nts eosinophils as percent of bl ood leukocytes (test code = 4170) 1 % [facility] Health[facility] as percent of blood [id number] 15:59:00* Test Item Value Reference Range Interpretation Comme nts monocytes as percent of bloo d leukocytes (test code = 2421) 10 % [facility] percent [facility] blood [id number] 15:59:00* Test Item Value Reference Range Interpretation Comme nts lymphocytes as percent of bl ood leukocytes (test code = 317) 13 % [facility] blood [id number] 15:59:00* Test Item Value Reference Range Interpretation Comme nts neutrophils as percent of bl ood leukocytes (test code = 316) 73 % [facility] [id number] 15:59:00* Test Item Value Reference Range Interpretation Comme nts platelet count (test code = 66) 417 X10E3/UL 150-450 [facility] distribution [id number] 15:59:00* Test Item Value Reference Range Interpretation Comme nts red blood cell distribution width (test code = 1030) 14.2 % 11.7-15.4 [facility] corpuscular hemoglobin concentration, [id number] 15:59:00* Test Item Value Reference Range Interpretation Comme nts mean corpuscular hemoglobin concentration, RBC (test code = 1029) 31.0 G/DL 31.5-35.7 L [facility] corpuscular hemoglobin, [id number] 15:59:00* Test Item Value Reference Range Interpretation Comme nts mean corpuscular hemoglobin, RBC (test code = 1031) 24.4 pg 26.6-33.0 L [facility] corpuscular volume, [id number] 15:59:00* Test Item Value Reference Range Interpretation Comme nts mean corpuscular volume, RBC (test code = 315) 79 fL 79-97 [facility]oc[facility], [id number] 15:59:00* Test Item Value Reference Range Interpretation Comme nts hematocrit, blood (test code = 64) 34.8 % 34.0-46.6 [facility], [id number] 15:59:00* Test Item Value Reference Range Interpretation Comme nts hemoglobin, blood (test code = 65) 10.8 g/dL 11.1-15.9 L [facility]throcyte (RBC) [id number] 15:59:00* Test Item Value Reference Range Interpretation Comme [facility] erythrocyte (RBC) count (ruslan t code = 67) 4.42 X10E6/UL 3.77-5.28 [facility]uk[facility] count, [id number] 15:59:00* Test Item Value Reference Range Interpretation Comme nts leukocyte count, blood (test code = 68) 12.6 X10E3/UL 3.4-10.8 H [facility] LincolnHerpes Simplex Virus [id number] 14:07:37* Test Item Value Reference Range Interpretation Comme nts Herpes Simplex Virus Genital (test code = 4258) no [facility]AL[facility] W/O SPECIFIC [id number] 23:11:00* Test Item Value Reference Range Interpretation [...] ve Lab Interpretation (test cod e = 76057-9) Normal [facility]<14 WEEKS US [id number] 17:45:03Addendum by Guerrero Whitaker MD on 04/16/2019 12:47 PMLimited USG for dating and viability:?Single live IUP measured 10 5/7 weeks.?Will date by this USG unless clinically indicated otherwise Casie Whitaker MD?04/16/2019?12:44 PM Limited USG for dating and viability:?Single live IUP [id number] 5/7 weeks.?Will date by this USG unless clinically indicated otherwise Guerrero Whitaker MD?04/16/2019?12:44 PMUnSt[facility] HospitalCBC WITH DIFFERENTIAL 2019-04-14 21:44:00* Test Item Value [...] 34.1 g/dL 32-36 RDW-SD (test code = 40501-6) 37.2 fL 38.5-49 L RDW-CV (test code = 788-0) 12.5 % 11.5-14 PLT (test code = 777-3) See_Comment H [Automated messa ge] The system which generated this result transmitted reference range: 135 - 361 10*3/?L. The reference range was not used to interpret this result as normal/abnormal. MPV (test code = 81377-6) 8.8 fL 9.4-13.3 L NRBC/100 WBC (test code = 8696392486) See_Comment [Automated [employer] ssage] The system which generated this result transmitted reference range: 0.0 - 10.0 /100 WBCs. The reference range was not used to interpret this result as normal/abnormal. NRBC x10^3 (test code = 3613680451) <0.01 See_Comment [Automated messa ge] The system which generated this result transmitted reference range: 10*3/?L. The reference range was not used to interpret this result as normal/abnormal. GRAN MAT (NEUT) % (test code = 770-8) 71.3 % IMM GRAN % (test code = 4478300641) 0.40 % LYMPH % (test code = 736-9) 19.6 % MONO % (test code = 5905-5) 7.8 % EOS % (test code = 713-8) 0.5 % BASO % (test code = 706-2) 0.4 % GRAN MAT x10^3(ANC) (test code = 8186283057) 5.21 10*3/uL 1.5-10.3 IMM GRAN x10^3 (test code = 2425523396) 0.03 10*3/uL 0-0.06 LYMPH x10^3 (test code = 731-0) 1.43 10*3/uL 0.7-7.4 MONO x10^3 (test code = 742-7) 0.57 10*3/uL 0-0.5 H EOS x10^3 (test code = 711-2) 0.04 10*3/uL 0-0.4 BASO x10^3 (test code = 704-7) 0.03 10*3/uL 0-0.1 Lab Interpretation (test code = 61981-3) Abnormal [facility]<14 WEEKS US [id number] 23:55:04Limited USG for dating due to irregular periods:?transabdominal USG showed intrauterine gestationalsac with yolk sac and no pole Guerrero Whitaker MD?03/20/2019?6:54 PMUnSt. Luke[facility] Woodlands HospitalGALV ONLY - VAGINAL PATHOGENS BY DNA [id number] 17:42:00* Test Item Value Reference Range Interpretation Comme nts Trichomonas vaginalis (test code = 8568799300) Negative Negative Gardnerella vaginalis (test code = 7965724977) Negative Negative Susan species (test code = 4462582231) Negative Negative Lab Interpretation (test cod e = 83584-8) Normal [facility] CenterGC & CHLAMYDIA AMPLIFIED [id number] 17:25:00* Test Item Value Reference Range Interpretation Comme nts Lab Interpretation (test cod e = 66157-4) Normal [facility] CenterADC / [facility] - DRUG SCREEN [id number] 02:43:00* Test Item Value Reference Range Interpretation Comme nts BENZO U (test code = 1821107511) Negative Negative ELVIS U (test code = 9878034022) Negative Negative AMPHET (test code = 5257245446) Negative Negative THC (test code = 3202010788) Negative Negative METHADONE (test code = 5934110876) Negative Negative Meth U (test code = 6037277752) Negative Negative OPIATES (test code = 0819863565) Negative Negative Cocaine Metabolite (test code = 0758608111) Negative Negative PROPOXY (test code = 0895707351) Negative Negative Tric U (test code = 7351741799) Negative Negative PCP (test code = 7248365627) Negative Negative OXYCOD (test code = 4327529929) Negative Negative ARNULFO (test code = ARNULFO) [...] legal testing). Lab Interpretation (test code = 94792-9) Normal [facility] BETA HCG [id number] 17:07:00* Test Item Value Reference Range Interpretation Comme [facility] BETA HCG (test code = 3470729709) See_Comment [Automated [employer] ge] The system which generated this result transmitted reference range: Non- female and male patients: <5 mIU/mL. The reference range was not used to interpret this result as normal/abnormal. ARNULFO (test code = ARNULFO) Gestational Age?Range (mIU/mL)1-10?Weeks?4 4-46097082-52 Weeks?94140-50731367 -22 Weeks?7480-45869719- 40 Weeks?1531-982827Lrq tin has been reported to cause a negative bias, interpret results relative to patient's use of biotin. [facility] URINALYSIS W/O SPECIFIC [id number] 14:40:00* Test Item Value Reference Range Interpretation [...] = 3257) N/A Negative - Negati ve [facility] [id number] 14:30:00* Test Item Value Reference Range Interpretation Comme nts POCT PREG (test code = 1605) Positive On board controls acceptable with C Line (test code = 3574) Yes POCT PREG LOT # (test code = 3575) POCT PREG TEST DATE ( test code = 3576) [facility] CenterLIPID [id number] 00:00:00* Test Item Value Reference Range Interpretation Comme nts CHOLESTEROL (test code = 2210) 151 MG/DL TRIGLYCERIDES (test code = 2232) 101 MG/DL HDL CHOLESTEROL (test code = 2220) 52 MG/DL CALC LDL CHOL (test code = 2237) 79 MG/DL RISK RATIO LDL/HDL (test cod e = 2238) 1.52 RATIO LIPID [id number] 00:00:00* Test Item Value Reference Range Interpretation Comme nts CHOLESTEROL (test code = 2210) 151 MG/DL TRIGLYCERIDES (test code = 2232) 101 MG/DL HDL CHOLESTEROL (test code = 2220) 52 MG/DL CALC LDL CHOL (test code = 2237) 79 MG/DL RISK RATIO LDL/HDL (test cod e = 2238) 1.52 RATIO BASIC METABOLIC [id number] 00:00:00* Test Item Value Reference Range Interpretation Comme nts GLUCOSE (test code = 2217) 96 MG/DL BUN (test code = 2208) 9 MG/DL CREATININE (test code = 2214) 0.45 MG/DL eGFR AMER. (test code = 99183) (NOTE) ML/MIN/1.73 eGFR NON- AMER. (test code = 85797) NO CALC ML/MIN/1.73 SODIUM (test code = 2231) 142 MEQ/L POTASSIUM (test code = 2228) 4.1 MEQ/L CHLORIDE (test code = 2215) 103 MEQ/L CARBON DIOXIDE (test code = 2206) 26 MEQ/L CALCIUM (test code = 2209) 8.6 MG/DL BASIC METABOLIC [id number] 00:00:00* Test Item Value Reference Range Interpretation Comme nts GLUCOSE (test code = 2217) 96 MG/DL BUN (test code = 2208) 9 MG/DL CREATININE (test code = 2214) 0.45 MG/DL eGFR AMER. (test code = 18560) (NOTE) ML/MIN/1.73 eGFR NON- AMER. (test code = 79177) NO CALC ML/MIN/1.73 SODIUM (test code = 2231) 142 MEQ/L POTASSIUM (test code = 2228) 4.1 MEQ/L CHLORIDE (test code = 2215) 103 MEQ/L CARBON DIOXIDE (test code = 2206) 26 MEQ/L CALCIUM (test code = 2209) 8.6 MG/DL LIPID [id number] 00:00:00* Test Item Value Reference Range Interpretation Comme nts CHOLESTEROL (test code = 2210) 151 MG/DL TRIGLYCERIDES (test code = 2232) 101 MG/DL HDL CHOLESTEROL (test code = 2220) 52 MG/DL CALC LDL CHOL (test code = 2237) 79 MG/DL RISK RATIO LDL/HDL (test cod e = 2238) 1.52 RATIO LIPID [id number] 00:00:00* Test Item Value Reference Range Interpretation Comme nts CHOLESTEROL (test code = 2210) 151 MG/DL TRIGLYCERIDES (test code = 2232) 101 MG/DL HDL CHOLESTEROL (test code = 2220) 52 MG/DL CALC LDL CHOL (test code = 2237) 79 MG/DL RISK RATIO LDL/HDL (test cod e = 2238) 1.52 RATIO BASIC METABOLIC [id number] 00:00:00* Test Item Value Reference Range Interpretation Comme nts GLUCOSE (test code = 2217) 96 MG/DL BUN (test code = 2208) 9 MG/DL CREATININE (test code = 2214) 0.45 MG/DL eGFR AMER. (test code = 86135) (NOTE) ML/MIN/1.73 eGFR NON- AMER. (test code = 79113) NO CALC ML/MIN/1.73 SODIUM (test code = 2231) 142 MEQ/L POTASSIUM (test code = 2228) 4.1 MEQ/L CHLORIDE (test code = 2215) 103 MEQ/L CARBON DIOXIDE (test code = 2206) 26 MEQ/L CALCIUM (test code = 2209) 8.6 MG/DL BASIC METABOLIC [id number] 00:00:00* Test Item Value Reference Range Interpretation Comme nts GLUCOSE (test code = 2217) 96 MG/DL BUN (test code = 2208) 9 MG/DL CREATININE (test code = 2214) 0.45 MG/DL eGFR AMER. (test code = 68092) (NOTE) ML/MIN/1.73 eGFR NON- AMER. (test code = 05246) NO CALC ML/MIN/1.73 SODIUM (test code = 2231) 142 MEQ/L POTASSIUM (test code = 2228) 4.1 MEQ/L CHLORIDE (test code = 2215) 103 MEQ/L CARBON DIOXIDE (test code = 2206) 26 MEQ/L CALCIUM (test code = 2209) 8.6 MG/DL LIPID [id number] 00:00:00* Test Item Value Reference Range Interpretation Comme nts CHOLESTEROL (test code = 2210) 151 MG/DL TRIGLYCERIDES (test code = 2232) 101 MG/DL HDL CHOLESTEROL (test code = 2220) 52 MG/DL CALC LDL CHOL (test code = 2237) 79 MG/DL RISK RATIO LDL/HDL (test cod e = 2238) 1.52 RATIO BASIC METABOLIC [id number] 00:00:00* Test Item Value Reference Range Interpretation Comme nts GLUCOSE (test code = 2217) 96 MG/DL BUN (test code = 2208) 9 MG/DL CREATININE (test code = 2214) 0.45 MG/DL eGFR AMER. (test code = 62352) (NOTE) ML/MIN/1.73 eGFR NON- AMER. (test code = 72066) NO CALC ML/MIN/1.73 SODIUM (test code = 2231) 142 MEQ/L POTASSIUM (test code = 2228) 4.1 MEQ/L CHLORIDE (test code = 2215) 103 MEQ/L CARBON DIOXIDE (test code = 2206) 26 MEQ/L CALCIUM (test code = 2209) 8.6 MG/DL LIPID [id number] 00:00:00* Test Item Value Reference Range Interpretation Comme nts CHOLESTEROL (test code = 2210) 151 MG/DL TRIGLYCERIDES (test code = 2232) 101 MG/DL HDL CHOLESTEROL (test code = 2220) 52 MG/DL CALC LDL CHOL (test code = 2237) 79 MG/DL RISK RATIO LDL/HDL (test cod e = 2238) 1.52 RATIO BASIC METABOLIC [id number] 00:00:00* Test Item Value Reference Range Interpretation Comme nts GLUCOSE (test code = 2217) 96 MG/DL BUN (test code = 2208) 9 MG/DL CREATININE (test code = 2214) 0.45 MG/DL eGFR AMER. (test code = 51937) (NOTE) ML/MIN/1.73 eGFR NON- AMER. (test code = 52086) NO CALC ML/MIN/1.73 SODIUM (test code = 2231) 142 MEQ/L POTASSIUM (test code = 2228) 4.1 MEQ/L CHLORIDE (test code = 2215) 103 MEQ/L CARBON DIOXIDE (test code = 2206) 26 MEQ/L CALCIUM (test code = 2209) 8.6 MG/DL LIPID [id number] 00:00:00* Test Item Value Reference Range Interpretation Comme nts CHOLESTEROL (test code = 2210) 151 MG/DL TRIGLYCERIDES (test code = 2232) 101 MG/DL HDL CHOLESTEROL (test code = 2220) 52 MG/DL CALC LDL CHOL (test code = 2237) 79 MG/DL RISK RATIO LDL/HDL (test cod e = 2238) 1.52 RATIO BASIC METABOLIC [id number] 00:00:00* Test Item Value Reference Range Interpretation Comme nts GLUCOSE (test code = 2217) 96 MG/DL BUN (test code = 2208) 9 MG/DL CREATININE (test code = 2214) 0.45 MG/DL eGFR AMER. (test code = 54264) (NOTE) ML/MIN/1.73 eGFR NON- AMER. (test code = 65762) NO CALC ML/MIN/1.73 SODIUM (test code = 2231) 142 MEQ/L POTASSIUM (test code = 2228) 4.1 MEQ/L CHLORIDE (test code = 2215) 103 MEQ/L CARBON DIOXIDE (test code = 2206) 26 MEQ/L CALCIUM (test code = 2209) 8.6 MG/DL LIPID [id number] 00:00:00* Test Item Value Reference Range Interpretation Comme nts CHOLESTEROL (test code = 2210) 151 MG/DL TRIGLYCERIDES (test code = 2232) 101 MG/DL HDL CHOLESTEROL (test code = 2220) 52 MG/DL CALC LDL CHOL (test code = 2237) 79 MG/DL RISK RATIO LDL/HDL (test cod e = 2238) 1.52 RATIO LIPID [id number] 00:00:00* Test Item Value Reference Range Interpretation Comme nts CHOLESTEROL (test code = 2210) 151 MG/DL TRIGLYCERIDES (test code = 2232) 101 MG/DL HDL CHOLESTEROL (test code = 2220) 52 MG/DL CALC LDL CHOL (test code = 2237) 79 MG/DL RISK RATIO LDL/HDL (test cod e = 2238) 1.52 RATIO BASIC METABOLIC [id number] 00:00:00* Test Item Value Reference Range Interpretation Comme nts GLUCOSE (test code = 2217) 96 MG/DL BUN (test code = 2208) 9 MG/DL CREATININE (test code = 2214) 0.45 MG/DL eGFR AMER. (test code = 82676) (NOTE) ML/MIN/1.73 eGFR NON- AMER. (test code = 36818) NO CALC ML/MIN/1.73 SODIUM (test code = 2231) 142 MEQ/L POTASSIUM (test code = 2228) 4.1 MEQ/L CHLORIDE (test code = 2215) 103 MEQ/L CARBON DIOXIDE (test code = 2206) 26 MEQ/L CALCIUM (test code = 2209) 8.6 MG/DL BASIC METABOLIC [id number] 00:00:00* Test Item Value Reference Range Interpretation Comme nts GLUCOSE (test code = 2217) 96 MG/DL BUN (test code = 2208) 9 MG/DL CREATININE (test code = 2214) 0.45 MG/DL eGFR AMER. (test code = 97412) (NOTE) ML/MIN/1.73 eGFR NON- AMER. (test code = 27721) NO CALC ML/MIN/1.73 SODIUM (test code = 2231) 142 MEQ/L POTASSIUM (test code = 2228) 4.1 MEQ/L CHLORIDE (test code = 2215) 103 MEQ/L CARBON DIOXIDE (test code = 2206) 26 MEQ/L CALCIUM (test code = 2209) 8.6 MG/DL LIPID [id number] 00:00:00* Test Item Value Reference Range Interpretation Comme nts CHOLESTEROL (test code = 2210) 151 MG/DL TRIGLYCERIDES (test code = 2232) 101 MG/DL HDL CHOLESTEROL (test code = 2220) 52 MG/DL CALC LDL CHOL (test code = 2237) 79 MG/DL RISK RATIO LDL/HDL (test cod e = 2238) 1.52 RATIO BASIC METABOLIC [id number] 00:00:00* Test Item Value Reference Range Interpretation Comme nts GLUCOSE (test code = 2217) 96 MG/DL BUN (test code = 2208) 9 MG/DL CREATININE (test code = 2214) 0.45 MG/DL eGFR AMER. (test code = 25898) (NOTE) ML/MIN/1.73 eGFR NON- AMER. (test code = 18011) NO CALC ML/MIN/1.73 SODIUM (test code = 2231) 142 MEQ/L POTASSIUM (test code = 2228) 4.1 MEQ/L CHLORIDE (test code = 2215) 103 MEQ/L CARBON DIOXIDE (test code = 2206) 26 MEQ/L CALCIUM (test code = 2209) 8.6 MG/DL LIPID [id number] 00:00:00* Test Item Value Reference Range Interpretation Comme nts CHOLESTEROL (test code = 2210) 151 MG/DL TRIGLYCERIDES (test code = 2232) 101 MG/DL HDL CHOLESTEROL (test code = 2220) 52 MG/DL CALC LDL CHOL (test code = 2237) 79 MG/DL RISK RATIO LDL/HDL (test cod e = 2238) 1.52 RATIO LIPID [id number] 00:00:00* Test Item Value Reference Range Interpretation Comme nts CHOLESTEROL (test code = 2210) 151 MG/DL TRIGLYCERIDES (test code = 2232) 101 MG/DL HDL CHOLESTEROL (test code = 2220) 52 MG/DL CALC LDL CHOL (test code = 2237) 79 MG/DL RISK RATIO LDL/HDL (test cod e = 2238) 1.52 RATIO BASIC METABOLIC [id number] 00:00:00* Test Item Value Reference Range Interpretation Comme nts GLUCOSE (test code = 2217) 96 MG/DL BUN (test code = 2208) 9 MG/DL CREATININE (test code = 2214) 0.45 MG/DL eGFR AMER. (test code = 32781) (NOTE) ML/MIN/1.73 eGFR NON- AMER. (test code = 38980) NO CALC ML/MIN/1.73 SODIUM (test code = 2231) 142 MEQ/L POTASSIUM (test code = 2228) 4.1 MEQ/L CHLORIDE (test code = 2215) 103 MEQ/L CARBON DIOXIDE (test code = 2206) 26 MEQ/L CALCIUM (test code = 2209) 8.6 MG/DL BASIC METABOLIC [id number] 00:00:00* Test Item Value Reference Range Interpretation Comme nts GLUCOSE (test code = 2217) 96 MG/DL BUN (test code = 2208) 9 MG/DL CREATININE (test code = 2214) 0.45 MG/DL eGFR AMER. (test code = 94043) (NOTE) ML/MIN/1.73 eGFR NON- AMER. (test code = 13664) NO CALC ML/MIN/1.73 SODIUM (test code = 2231) 142 MEQ/L POTASSIUM (test code = 2228) 4.1 MEQ/L CHLORIDE (test code = 2215) 103 MEQ/L CARBON DIOXIDE (test code = 2206) 26 MEQ/L CALCIUM (test code = 2209) 8.6 MG/DL
--- NOTE | 2024-01-17 10:03 | EDPHYS ---
Physician Documentation [facility] Name: Altagracia Yu Age: 18 yrs Sex: Female : 2005 Arrival Date: 01/17/2024 Time: 09:28 Bed 14 Private MD: YOLA Physician Collins Ibarra HPI: 01/16 09:58 This 18 yrs old Female presents to ER via Ambulatory with complaints of Toothache. sb4 09:58 The patient presents with pain, swelling. The problem is located in the upper left sb4 first bicuspid and upper left second bicuspid. Onset: The symptoms/episode began/occurred 3 day(s) ago. Duration: The symptoms are continuous. Modifying factors: The symptoms are alleviated by nothing, the symptoms are aggravated by chewing, food. Associated signs and symptoms: The patient has no apparent associated signs or symptoms. The patient has not experienced similar symptoms in the past. 09:58 dental pain and swelling. been taking tylenol without much relief. has a dentist but 4 dentist won't see her without OB clearance (12 weeks ) and she doesn't have insurance. 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 - Infectious Disease History:: Denies. - Social history:: Smoking status: Reported history of juuling and/or vaping. ROS: 09:58 Constitutional: Negative for fever, chills, and weight loss, sb4 09:58 ENT: Positive for dental pain, 09:58 All other systems are negative, Exam: 09:58 Constitutional: This is a well developed, well nourished patient who is awake, alert, sb4 and in no acute distress. Head/Face: Normocephalic, atraumatic. Eyes: Extra-ocular motions intact. Periorbital areas with no swelling, redness, or edema. 09:58 Skin: Warm, dry with normal turgor. Normal color with no rashes, no lesions, and no evidence of cellulitis. 09:58 ENT: Dental exam: gum swelling, that is moderate, specifically in the upper left second bicuspid and upper left first bicuspid, Voice: is normal, Vital Signs: 09:42 BP 120 / ???; Pulse 71; Resp 16; Temp 98.6(O); Pulse Ox 99% on R/A; Weight 99.79 kg; hb Height 5 ft. 5 in. ; Pain 8/10; 09:42 Body Mass Index 36.61 (99.79 kg, 165.1 cm) hb 09:42 Pain Scale: Adult hb MDM: 09:42 Patient medically screened. sb4 10:01 Data reviewed: vital signs, nurses notes, and as a result, I will discharge patient. sb4 Care significantly affected by the following chronic conditions: . Care significantly affected by the following Social Determinants of Health: Poor access to healthcare and/or lack of insurance. Counseling: I had a detailed discussion with the patient and/or guardian regarding the historical points, exam findings, and any diagnostic results supporting the discharge/admit diagnosis, the need for outpatient follow up, a dentist, to return to the emergency department if symptoms worsen or persist or if there are any questions or concerns that arise at home. Administered Medications: 10:09 Drug: Viscous Lidocaine Mucous Membrane Liquid (4 %) 5 ml Mucous Membrane once Route: db Mucous Membrane; 10:13 Follow up: Response: No adverse reaction db 10:09 Drug: Clindamycin PO 300 mg PO once Route: PO; db 10:13 Follow up: Response: No adverse reaction db Disposition Summary: 01/17/24 10:02 Discharge Ordered Notes: Location: Home sb4 Problem: an ongoing problem sb4 Symptoms: have improved sb4 Condition: Stable sb4 Diagnosis - Dental caries, unspecified sb4 Followup: sb4 - With: Private Physician - When: 2 - 3 days - Reason: Recheck today's complaints, Re-evaluation by your physician Discharge Instructions: - Discharge Summary Sheet sb4 - Dental Caries, Adult sb4 - Dental Pain, Elca-pp-Ceuv sb4 Forms: - Antibiotic Education sb4 - Patient Portal Instructions sb4 - Leadership Thank You Letter sb4 Prescriptions: - Clindamycin HCl 150 mg Oral Capsule - take 1 capsule ORAL route every 6 hours for 10 days; 40 capsule; Refills: 0, sb4 Product Selection Permitted Signatures: Yris Gómez, RN RN hb Roma Osullivan RN RN Vanessa Oates PA-C PA-C sb4 Corrections: (The following items were deleted from the chart) 09:48 09:47 PMHx: adhd; hb hb
--- NOTE | 2024-01-17 10:03 | ER ---
Nurse's Notes [facility] Name: Altagracia Yu Age: 18 yrs Sex: Female : 2005 Arrival Date: 01/17/2024 Time: 09:28 Bed 14 Private MD: Diagnosis: Dental caries, unspecified Presentation: 01/16 09:42 Chief complaint: Left upper molar pain x 2 days. Pt is approx 12 weeks , JONAS hb 07/31, . Coronavirus screen: At this time, the client does not indicate any symptoms associated with coronavirus-19. Ebola Screen: No symptoms or risks identified at this time. Initial Sepsis Screen: Does the patient meet any 2 criteria? No. Patient's initial sepsis screen is negative. Does the patient have a suspected source of infection? No. Patient's initial sepsis screen is negative. Risk Assessment: Do you want to hurt yourself or someone else? Patient reports no desire to harm self or others. Onset of symptoms was January 14, 2024. 09:42 Method Of Arrival: Ambulatory hb 09:42 Acuity: KARMEN 4 hb Triage Assessment: 09:47 General: Appears in no apparent distress. uncomfortable, Behavior is calm, cooperative. hb Pain: Pain currently is 8 out of 10 on a pain scale. EENT: Reports pain left upper molar. Neuro: Level of Consciousness is awake, alert, obeys commands, Oriented to person, place, time, situation. Cardiovascular: Patient's skin is warm and dry. Respiratory: Respiratory effort is even, unlabored, Respiratory pattern is regular, symmetrical. 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 - Infectious Disease History:: Denies. - Social history:: Smoking status: Reported history of juuling and/or vaping. Screenin:13 [facility] ED Fall Risk Assessment (Adult) History of falling in the last 3 months, db including since admission No falls in past 3 months (0 pts) Confusion or Disorientation No (0 pts) Intoxicated or Sedated No (0 pts) Impaired Gait No (0 pts) Mobility Assist Device Used No (0 pt) Altered Elimination No (0 pt) Score/Fall Risk Level 0 - 2 = Low Risk Oriented to surroundings, Maintained a safe environment. Abuse screen: Denies threats or abuse. Denies injuries from another. Nutritional screening: No deficits noted. Tuberculosis screening: No symptoms or risk factors identified. Assessment: 10:13 Reassessment: Patient appears in no apparent distress at this time. Patient and/or db family updated on plan of care and expected duration. Pain level reassessed. Patient is alert, oriented x 3, equal unlabored respirations, skin warm/dry/pink. LEFT DENTAL PAIN. General: Appears in no apparent distress. comfortable, Behavior is calm, cooperative. Pain: Complains of pain in mouth and upper left second bicuspid and upper left first bicuspid. Neuro: Level of Consciousness is awake, alert, obeys commands, Oriented to person, place, time. Respiratory: Airway is patent Respiratory effort is even, unlabored, Respiratory pattern is regular, symmetrical. EENT: 10:13 EENT: Reports pain in mouth. db Vital Signs: 09:42 BP 120 / ???; Pulse 71; Resp 16; Temp 98.6(O); Pulse Ox 99% on R/A; Weight 99.79 kg; hb Height 5 ft. 5 in. ; Pain 8/10; 09:42 Body Mass Index 36.61 (99.79 kg, 165.1 cm) hb 09:42 Pain Scale: Adult hb ED Course: 09:31 Patient arrived in ED. ts1 09:41 Vanessa Gibson PA-C is PHCP. sb4 09:42 Collins Ibarra MD is Attending Physician. sb4 09:47 Triage completed. hb 09:49 Arm band placed on. hb 09:49 Pulse ox on. NIBP on. hb 10:02 Roma Osullivan, KATELYN is Primary Nurse. db 10:13 Patient has correct armband on for positive identification. Call light in reach. Side db rails up X 1. Provided Education on: DISCHARGE. 10:13 No provider procedures requiring assistance completed. Patient did not have IV access db during this emergency room visit. Administered Medications: 10:09 Drug: Viscous Lidocaine Mucous Membrane Liquid (4 %) 5 ml Mucous Membrane once Route: db Mucous Membrane; 10:13 Follow up: Response: No adverse reaction db 10:09 Drug: Clindamycin PO 300 mg PO once Route: PO; db 10:13 Follow up: Response: No adverse reaction db Medication: 10:13 VIS not applicable for this client. db Outcome: 10:02 Discharge ordered by . sb4 10:13 Discharged to home ambulatory, db 10:13 Condition: stable 10:13 Discharge instructions given to patient, family, Instructed on discharge instructions, follow up and referral plans. Prescriptions given X 1, 10:17 Patient left the ED. db Signatures: Yris Gómez RN RN hb Roma Osullivan RN RN db Vanessa Gibson, RADHA GARCIA sb4 Aylin Middleton PAS PAS ts1 Corrections: (The following items were deleted from the chart) 09:48 09:47 PMHx: adhd; hb hb 09:53 09:42 Chief complaint: Left upper molar pain x 2 days. hb hb
[2024-01-17] MEDS ORDERED: LIDOCAINE VISCOUS 2% 10ML ORAL SOLN ONE (10:05)
[2024-01-17 10:24] VITALS: TEMP 98.6; O2SAT 99
== END 2024-01-17 10:17 | disposition home or self-care (01) ==
LOC: ER 09:28
DX: K02.9 Dental caries, unspecified (principal)
CPT/HCPCS: 99283

== ENCOUNTER 2024-01-19 23:51 | Emergency (ER) | payer OTHER, SELFPAY ==
--- OUTSIDE RECORDS SUMMARY | 2024-01-19 23:57 | XMS REPORT | Continuity of Care Document ---
Author Name Unknown Address [address] [place] [address] [facility] thconnect Address [address] [place] [address] Care Team Providers Care Last Puller Name Role Phone LATOYA MOJICA Primary Care Physician UnavailROSY Evans Attending Clinician UnavailANSELMO Soler Attending Clinician Unavailable Guerrero Whitaker MD Attending Clinician Doctor Unassigned, [place] Attending Clinician Arlene Bean Attending Clinician UnavailHeaven Holm Attending Clinician [phone] Yenni Cervantes Attending Clinician Unavailable Hannah Sanchez Attending Clinician Yina Kimble Attending Clinician Unavailable Adali Mcpherson Attending Clinician [phone] Responsible Provider, Not Yet Assigned Attending Clinician Unavailable Yenni Gross Attending Clinician Unavailable Fire Equipment Inspector Helper, [facility] Attending Clinic louise Unavailable Shayy Rios Attending Clinician UnavailColette Mandujano Attending Clinician [phone] Tram Landaverde Attending Clinician Unavailable Polina Dobson Attending Clinician Unavailable JANNA BONILLA Attending Clinician Unavailable Janna Bonilla PA-C Attending Clinician GUILLERMINA GILL Attending Clinician Unavailable 1, [facility] Attending Clinician Unavailable GUERRERO WHITAKER Attending Clinician Unavailable Heaven Morrow Unavailable [phone] Adali Mcpherson Unavailable [phone] Colette Chowdary Unavailable [phone] Helen Yenni Unavailable Unavailable Payers Payer Name Policy Type Policy Number Effective Date Expirati on Date Source [facility] [id number] 2018 00:00:00 Problems Condition Name Condition Details [...] ligament pain Disease Active 09-17 00:00: 00 [facility] 32 weeks gestation of 32 weeks gestation of Disease Active 2018-08 00:00: 00 [facility] 28 weeks gestation of 28 weeks gestation of Disease Active 2018-08 00:00: 00 [facility] Supervisio n of high risk in third trimester Supervisio n of high risk in third trimester Disease Active 2018-08 00:00: 00 [facility] Uterine size-date discrepanc y in third trimester Uterine size-date discrepanc y in third trimester Disease Active 2018-08 00:00: 00 [facility] Need for Tdap vaccinatio n Need for Tdap vaccinatio n Disease Active 2018-08 00:00: 00 [facility] History of Past Illness Condition Name Condition Details Condition Category Status Onset Date Resolution Date Last Treatment Date Treating Clinician Comments Source 36 Weeks Gestation of Condition Inactiv e 10-14 00:00: 00 2019-10-21 00:00:00 2019-10-15 09:09:50 Yenni Cervantes Jakub [facility] 35 Weeks Gestation of Condition Inactiv e 10-07 00:00: 00 2019-10-14 00:00:00 2019-10-07 17:42:03 Colette Chowdary Jakub [facility] Allergies, Adverse Reactions, Alerts Allergy Name Allergy Type Status Severity Reaction(s) Onset Date Inactive Date Treating Clinician Comments Source Penicill ins - CLASS Propensi ty to adverse reaction to drug Active 7-19 00:00: 00 Penicill ins Propensi ty to adverse reaction to drug Active 3-21 00:00: 00 ASPIRIN DRUG INGREDI Active ITCHING 03-17 00:00: 00 [facility] Aspirin Propensi ty to adverse reaction s Active Swelling 03-17 00:00: 00 [facility] Social History Social Habit Start Date Stop Date Quantity Comments Source ASSERTION 2019-02-12 00:00:00 [facility] Sex Assigned At [facility] History SDOH Alcohol Std Drinks [facility] History SDOH Alcohol Binge [facility] Have you traveled to any zika virus infected areas? 2019-10-14 13:44:33 2019-10-14 13:44:33 No [facility] social history E&M 2019-10-07 14:07:37 2019-10-07 14:07:37 not currently with familyliving with fob's familystates her own parents not involved with this . [facility] cat exposure during 2019-10-07 14:07:37 2019-10-07 14:07:37 no [facility] Alcohol intake 2019-09-17 00:00:00 2019-09-17 00:00:00 [facility] History SDOH Alcohol Frequency 2019-03-17 00:00:00 2019-03-17 00:00:00 1 [facility] History of tobacco use 2019-03-07 00:00:00 Chews Tobacco [facility] Smoking Status Start Date Stop Date Source Never smoker [facility] Medications Ordered Medication Name Filled [...] 00:00: 00 No 500 Dose Unknown 0 8-08 00:00: 00 No 300 Dose Unknown 0 8-08 00:00: 00 No 500 Dose Unknown 0 8-08 00:00: 00 No 300 Dose Unknown 0 8-08 00:00: 00 No 500 Dose Unknown 0 8 00:00: 00 No 300 TAKE 1 TABLET DAILY. 0 8-06 00:00: 00 No 10 Dose Unknown 0 [...] DAYS 2022-0 7-15 00:00: 00 No 300 &lt 2022-0 [...] 1mg doxycycline monohydrate 100 mg capsule 1 09-08 00:00: 00 No 1mg doxycycline monohydrate 100 mg capsule 2020-1 - 00:00: 00 No 1mg doxycycline monohydrate 100 mg capsule 1 09-08 00:00: 00 No 1mg medroxyprog esterone 150 [...] Mcpherson Take 1 Tablet [facility] Day [facility] VITAFOL ULTRA (PRENAT-FE POLY-METHFO L-FA-DHA) 29-0.6-0.4- 200 MG CAPS 10-07 00:00: 00 Yes Colette Germán Manning 1{Capsu le} 1xD take 1 capsule by mouth daily [facility] BLOOD PRESSURE (BLOOD PRESSURE MONITORING) KIT 10-07 00:00: 00 Yes Colette Germán Manning take twice daily [facility] PNV 67-iron ps-folate no.1-dha (VITAFOL ULTRA) 29 mg iron- 1 mg-200 mg Cap 03 00:00: 00 Yes [id number] Take 1 TAB-CAP/M2 by mouth daily. [facility] cetirizine 5 mg tablet 12-22 [...] (28) No known medications No Un adrian [facility] No known medications No Un adrian [facility] Vital Signs Vital Name Observation Time Observation Value Comments S ource Systolic blood pressure 2019-08-31 23:06:00 93 mm[Hg] [facility] Diastolic blood pressure 2019-08-31 23:06:00 64 mm[Hg] [facility] Heart rate 2019-08-31 23:06:00 90 /min [facility] Body temperature 2019-08-31 23:06:00 36.39 Vicky [facility] Respiratory rate 2019-08-31 23:06:00 18 /min [facility] Body height 2019-08-31 23:06:00 160 cm [facility] Body weight 2019-08-31 23:06:00 101.606 kg [facility] BMI 2019-08-31 23:06:00 39.68 kg/m2 [facility] Systolic blood pressure 2019-04-14 19:00:00 117 mm[Hg] [facility] Diastolic blood pressure 2019-04-14 19:00:00 70 mm[Hg] [facility] Heart rate 2019-04-14 19:00:00 79 /min [facility] Body temperature 2019-04-14 19:00:00 36.89 Vicky [facility] Respiratory rate 2019-04-14 19:00:00 18 /min [facility] Body height 2019-04-14 19:00:00 160 cm [facility] Body weight 2019-04-14 19:00:00 87.544 kg [facility] BMI 2019-04-14 19:00:00 34.19 kg/m2 [facility] Systolic blood pressure 2019-03-17 14:24:00 112 mm[Hg] [facility] Diastolic blood pressure 2019-03-17 14:24:00 70 mm[Hg] [facility] Heart rate 2019-03-17 14:24:00 77 /min [facility] Body temperature 2019-03-17 14:24:00 36.83 Vicky [facility] Respiratory rate 2019-03-17 14:24:00 18 /min [facility] Body height 2019-03-17 14:24:00 160 cm [facility] Body weight 2019-03-17 14:24:00 90.266 kg [facility] BMI 2019-03-17 14:24:00 35.25 kg/m2 [facility] BP Systolic 2022-05-07 17:13:00 [...] blood pressure, diastolic 2019-10-14 13:44:33 84 mm[Hg] [facility] blood pressure, systolic 2019-10-14 13:44:33 125 mm[Hg] [facility] pulse rate E&M 2019-10-14 13:44:33 87 /min L [facility] oxygen saturation, oximetry 2019-10-14 13:44:33 97 % [facility] respiratory rate E&M 2019-10-14 13:44:33 20 /min [facility] temperature site 2019-10-14 13:44:33 oral [facility] temperature E&M 2019-10-14 13:44:33 98.3 [degF] [facility] weight E&M 2019-10-14 13:44:33 238.8 [lb_av] Le gacy [facility] height E&M 2019-10-14 13:44:33 63 [in_i] [facility], oximetry 2019-10-07 14:07:37 98 % [facility] blood pressure, diastolic 2019-10-07 14:07:37 83 mm[Hg] [facility] blood pressure, systolic 2019-10-07 14:07:37 130 mm[Hg] [facility] pulse rate E&M 2019-10-07 14:07:37 91 /min L [facility] temperature E&M 2019-10-07 14:07:37 98.6 [degF] [facility] temperature site 2019-10-07 14:07:37 oral [facility] height E&M 2019-10-07 14:07:37 63 [in_i] Legac y [facility] weight E&M 2019-10-07 14:07:37 235 [lb_av] L[facility] Procedures Procedure Date / Time Performed Performing Clinician Source CONSENT/REFUSAL FOR DIAGNOSIS AND TREATMENT 2019-10-25 05:01:00 Doctor Unassigned, [place] [facility] Nutrition Counseling (Obese) 2019-10-14 14:28:44 Heaven Morrow [facility] Case Mgmt Visit, Non-Billable [id number] 2019-10-07 15:54:24 Yenni Gross [facility] Vaccines Ordered - Print Consent/Declination Forms 2019-10-07 15:46:26 Colette Chowdaryacy [facility] POCT URINALYSIS W/O SPECIFIC GRAVITY 2019-08-31 00:00:00 Janna Bonilla [facility] <14 WEEKS US LIMITED 2019-04-16 17:44:02 Bry Guerrero Schwab [facility] CBC WITH DIFFERENTIAL 2019-04-14 21:36:00 Bry Guerrero Ortega m [facility] ASSIGNMENT OF BENEFITS 2019-04-14 20:00:31 Docto r Unassigned, [place] [facility] <14 WEEKS US LIMITED 2019-03-20 23:54:07 Guerrero Whitaker [facility] TOTAL BETA HCG ASSAY 2019-03-17 15:19:00 Bry Guerrero [facility] GC & CHLAMYDIA AMPLIFIED ASSAY 2019-03-17 14:53:00 Bry Guerrero [facility] GALV ONLY - VAGINAL PATHOGENS BY DNA PROBE 2019-03-17 14:53:00 Bry Guerreroalyssia Schwab [facility] ADC / LCC - DRUG SCREEN TRIAGE 2019-03-17 14:53:00 Bry Guerreroalyssia Schwab [facility] POCT TEST 2019-03-17 00:00:00 Bry Guerrero Zaheer [facility] POCT URINALYSIS W/O SPECIFIC GRAVITY 2019-03-17 00:00:00 Bry Guerrero [facility] Plan of Care Planned Activity Planned Date Details Comments Source Goal Plan of Care Note [code = 28480-1] Goal Plan of Care Note [code = 76055-5] Goal Plan of Care Note [code = 06468-7] Goal Plan of Care Note [code = 84711-8] Goal Plan of Care Note [code = 03595-9] Goal Plan of Care Note [code = 64189-7] Goal Plan of Care Note [code = 11716-3] Goal Plan of Care Note [code = 40873-0] Goal Plan of Care Note [code = 39573-9] Goal Plan of Care Note [code = 55552-9] Goal Plan of Care Note [code = 71707-4] Goal Plan of Care Note [code = 88081-9] Goal Plan of Care Note [code = 46551-6] Goal Plan of Care Note [code = 37392-7] Goal Plan of Care Note [code = 92767-9] Goal Plan of Care Note [code = 33026-8] Goal Plan of Care Note [code = 67617-7] Goal Plan of Care Note [code = 67159-3] Goal Plan of Care Note [code = 11842-3] Goal Plan of Care Note [code = 82216-6] Goal Plan of Care Note [code = 74087-5] Goal Plan of Care Note [code = 48735-3] Goal Plan of Care Note [code = 82381-5] Goal Plan of Care Note [code = 60958-6] Goal Plan of Care Note [code = 62018-1] Goal Plan of Care Note [code = 87506-3] Goal Plan of Care Note [code = 77788-1] Goal Plan of Care Note [code = 69030-9] Goal Plan of Care Note [code = 16394-3] Goal Plan of Care Note [code = 62785-5] Goal Plan of Care Note [code = 19208-9] Goal Plan of Care Note [code = 01374-6] Goal Plan of Care Note [code = 51740-7] Goal Plan of Care Note [code = 17415-3] Goal Plan of Care Note [code = 24210-0] Goal Plan of Care Note [code = 77555-8] Goal Plan of Care Note [code = 01527-6] Goal Plan of Care Note [code = 73427-8] Goal Plan of Care Note [code = 92065-6] Goal Plan of Care Note [code = 34156-3] Goal Plan of Care Note [code = 91445-5] Goal Plan of Care Note [code = 85064-7] Goal Plan of Care Note [code = 62909-2] Goal Plan of Care Note [code = 38308-8] Goal Plan of Care Note [code = 60496-2] Goal Plan of Care Note [code = 57590-4] Goal Plan of Care Note [code = 15564-0] Goal Plan of Care Note [code = 86447-7] Goal Plan of Care Note [code = 38773-9] Goal Plan of Care Note [code = 09127-0] Goal Plan of Care Note [code = 51340-7] Goal Plan of Care Note [code = 47249-4] Goal Plan of Care Note [code = 70205-4] Goal Plan of Care Note [code = 28366-2] Goal Plan of Care Note [code = 03556-7] Goal Plan of Care Note [code = 01290-5] Goal Plan of Care Note [code = 28023-8] Goal Plan of Care Note [code = 58998-5] Goal Plan of Care Note [code = 68909-9] Goal Plan of Care Note [code = 99827-2] Goal Plan of Care Note [code = 62163-1] Goal Plan of Care Note [code = 13528-2] Goal Plan of Care Note [code = 50548-4] Goal Plan of Care Note [code = 29049-7] Goal Plan of Care Note [code = 63278-6] Goal Plan of Care Note [code = 96756-3] Goal Plan of Care Note [code = 36299-8] Goal Plan of Care Note [code = 49410-2] Goal Plan of Care Note [code = 02291-0] Goal Plan of Care Note [code = 98057-7] Goal Plan of Care Note [code = 85708-5] Goal Plan of Care Note [code = 08091-3] Goal Plan of Care Note [code = 91528-7] Goal Plan of Care Note [code = 04390-4] Goal Plan of Care Note [code = 43677-7] Goal Plan of Care Note [code = 25408-6] Goal Plan of Care Note [code = 00213-2] Goal Plan of Care Note [code = 54685-9] Goal Plan of Care Note [code = 04500-8] Goal Plan of Care Note [code = 46970-5] Goal Plan of Care Note [code = 42373-0] Goal Plan of Care Note [code = 93088-3] Goal Plan of Care Note [code = 98756-4] Goal Plan of Care Note [code = 79792-5] Goal Plan of Care Note [code = 78429-2] Goal Plan of Care Note [code = 83827-5] Goal Plan of Care Note [code = 45871-2] Goal Plan of Care Note [code = 99948-1] Goal Plan of Care Note [code = 18287-0] Goal Plan of Care Note [code = 40605-7] Goal Plan of Care Note [code = 16925-2] Goal Plan of Care Note [code = 10179-7] Goal Plan of Care Note [code = 43439-6] Goal Plan of Care Note [code = 22452-5] Goal Plan of Care Note [code = 99422-1] Goal Plan of Care Note [code = 74974-5] Goal Plan of Care Note [code = 70513-4] Goal Plan of Care Note [code = 75766-1] Goal Plan of Care Note [code = 46050-1] Goal Plan of Care Note [code = 55876-0] Goal Plan of Care Note [code = 06663-4] Goal Plan of Care Note [code = 98081-2] Goal Plan of Care Note [code = 03473-1] Goal Plan of Care Note [code = 00415-0] Goal Plan of Care Note [code = 24497-5] Goal Plan of Care Note [code = 17830-7] Goal Plan of Care Note [code = 33908-7] Goal Plan of Care Note [code = 73381-8] Goal Plan of Care Note [code = 50995-1] Goal Plan of Care Note [code = 52257-9] Goal Plan of Care Note [code = 96722-0] Goal Plan of Care Note [code = 79235-5] Goal Plan of Care Note [code = 59399-4] Goal Plan of Care Note [code = 65015-3] Goal Plan of Care Note [code = 03986-7] Goal Plan of Care Note [code = 53798-6] Goal Plan of Care Note [code = 09217-9] Goal Plan of Care Note [code = 36280-8] Goal Plan of Care Note [code = 54317-9] Goal Plan of Care Note [code = 09395-0] Goal Plan of Care Note [code = 15878-6] Goal Plan of Care Note [code = 32583-1] Goal Plan of Care Note [code = 27685-6] Goal Plan of Care Note [code = 04407-5] Goal Plan of Care Note [code = 68103-5] Goal Plan of Care Note [code = 47948-4] Goal Plan of Care Note [code = 12277-2] Goal Plan of Care Note [code = 67451-0] Goal Plan of Care Note [code = 27027-6] Goal Plan of Care Note [code = 33797-0] Goal Plan of Care Note [code = 34294-7] Goal Plan of Care Note [code = 90297-7] Goal Plan of Care Note [code = 36562-4] Goal Plan of Care Note [code = 03363-8] Goal Plan of Care Note [code = 15505-2] Goal Plan of Care Note [code = 34480-1] Goal Plan of Care Note [code = 90794-2] Goal Plan of Care Note [code = 12617-0] Goal Plan of Care Note [code = 04010-4] Goal Plan of Care Note [code = 11147-5] Goal Plan of Care Note [code = 14049-8] Goal Plan of Care Note [code = 87952-9] Goal Plan of Care Note [code = 90142-9] Goal Plan of Care Note [code = 27533-2] Goal Plan of Care Note [code = 11189-7] Goal Plan of Care Note [code = 20053-1] Goal Plan of Care Note [code = 01316-6] Goal Plan of Care Note [code = 83229-6] Goal Plan of Care Note [code = 82979-6] Goal Plan of Care Note [code = 13154-0] Goal Plan of Care Note [code = 04311-1] Goal Plan of Care Note [code = 10515-3] Goal Plan of Care Note [code = 46784-2] Goal Plan of Care Note [code = 25628-6] Goal Plan of Care Note [code = 52935-7] Goal Plan of Care Note [code = 56549-3] Goal Plan of Care Note [code = 25257-5] Goal Plan of Care Note [code = 08302-7] Goal Plan of Care Note [code = 75529-9] Goal Plan of Care Note [code = 21926-5] Goal Plan of Care Note [code = 08483-5] Goal Plan of Care Note [code = 49221-5] Goal Plan of Care Note [code = 22079-7] Goal Plan of Care Note [code = 54948-8] Goal Plan of Care Note [code = 91688-9] Goal Plan of Care Note [code = 69957-1] Goal Plan of Care Note [code = 50470-5] Goal Plan of Care Note [code = 63149-8] Goal Plan of Care Note [code = 98815-4] Goal Plan of Care Note [code = 66724-0] Goal Plan of Care Note [code = 94146-2] Goal Plan of Care Note [code = 06042-0] Goal Plan of Care Note [code = 44391-1] Goal Plan of Care Note [code = 78332-3] Goal Plan of Care Note [code = 98459-8] Goal Plan of Care Note [code = 27046-0] Goal Plan of Care Note [code = 19892-2] Goal Plan of Care Note [code = 77304-4] Goal Plan of Care Note [code = 61073-1] Goal Plan of Care Note [code = 06100-4] Goal Plan of Care Note [code = 33096-3] Goal Plan of Care Note [code = 06052-9] Goal Plan of Care Note [code = 53127-5] Goal Plan of Care Note [code = 94804-8] Goal Plan of Care Note [code = 25912-8] Goal Plan of Care Note [code = 50584-2] Goal Plan of Care Note [code = 44094-2] Goal Plan of Care Note [code = 78649-6] Goal Plan of Care Note [code = 50315-1] Goal Plan of Care Note [code = 28973-8] Goal Plan of Care Note [code = 48601-7] Goal Plan of Care Note [code = 73975-9] Goal Plan of Care Note [code = 88818-5] Goal Plan of Care Note [code = 05488-5] Goal Plan of Care Note [code = 15542-9] Goal Plan of Care Note [code = 67883-9] Goal Plan of Care Note [code = 01240-4] Goal Plan of Care Note [code = 13912-7] Goal Plan of Care Note [code = 62702-6] Goal Plan of Care Note [code = 48690-9] Goal Plan of Care Note [code = 59356-0] Goal Plan of Care Note [code = 17464-8] Goal Plan of Care Note [code = 58874-9] Goal Plan of Care Note [code = 64242-1] Goal Plan of Care Note [code = 46624-4] Goal Plan of Care Note [code = 37064-9] Goal Plan of Care Note [code = 31473-1] Goal Plan of Care Note [code = 11134-4] Goal Plan of Care Note [code = 35042-8] Encounters Start Date/Time End Date/Time Encounter Type Admission Type Attending [facility] Care Department Encounter ID Source 2023-12-18 14:30:00 2023-12-18 14:30:00 Outpatient ANSELMO [facility] [id number] [facility] 2023-12-17 16:09:29 2023-12-17 16:09:29 Outpatient SFA SFA [id number] Cj Carlisle 2023-12-12 14:00:00 2023-12-12 14:00:00 Outpatient ANSELMO [facility] [id number] [facility] 2023-11-11 15:00:20 2023-11-11 15:00:20 Outpatient SFA SFA [id number] Cj Carlisle 2023-10-30 09:20:09 2023-10-30 09:20:09 Outpatient SFA SFA [id number] Cj Guzman Orestes 2023-10-16 14:55:13 2023-10-16 14:55:13 Outpatient SFA SFA [id number] Cj Guzman Orestes 2023-10-13 10:03:24 2023-10-13 10:03:24 Outpatient SFA SFA [id number] Cj Carlisle 2023-09-03 17:01:34 2023-09-03 17:01:34 Outpatient SFA SFA [id number] Cj Carlisle 2023-08-05 17:09:08 2023-08-05 17:09:08 Outpatient SFA SFA [id number] Cj Carlisle 2023-07-11 10:26:43 2023-07-11 10:26:43 Outpatient SFA SFA [id number] Cj Carlisle 2023-07-05 12:46:18 2023-07-05 12:46:18 Outpatient SFA SFA [id number] Cj Carlisle 2023-06-04 16:14:59 2023-06-04 16:14:59 Outpatient SFA SFA [id number] Cj Carlisle 2023-05-21 14:50:27 2023-05-21 14:50:27 Outpatient SFA SFA [id number] Cj Carlisle 2023-05-07 13:29:15 2023-05-07 13:29:15 Outpatient SFA SFA [id number] Cj Carlisle 2023-05-04 14:07:34 2023-05-04 14:07:34 Outpatient SFA SFA [id number] Cj Carlisle 2023-04-30 15:40:18 2023-04-30 15:40:18 Outpatient SFA SFA [id number] Cj Carlisle 2023-04-08 12:40:22 2023-04-08 12:40:22 Outpatient SFA SFA [id number] Cj Carlisle 2023-03-28 13:58:41 2023-03-28 13:58:41 Outpatient SFA SFA [id number] Cj Carlisle 2023-03-24 12:23:25 2023-03-24 12:23:25 Outpatient SFA SFA [id number] Cj Guzman Orestes 2023-03-10 14:14:23 2023-03-10 14:14:23 Outpatient SFA SFA [id number] Cj Carlisle 2023-02-17 13:57:55 2023-02-17 13:57:55 Outpatient SFA SFA [id number] Cj Carlisle 2022-12-31 14:01:12 2022-12-31 14:01:12 Outpatient SFA SFA [id number] Cj Guzman Orestes 2022-10-17 13:22:30 2022-10-17 13:22:30 Outpatient SFA SFA [id number] Cj Guzman Orestes 2022-07-04 16:27:15 2022-07-04 16:27:15 Outpatient SFA SFA [id number] Cj Carlisle 2022-06-25 09:30:43 2022-06-25 09:30:43 Outpatient SFA SFA [id number] Cj Carlisle 2022-04-04 00:00:00 2022-04-04 00:00:00 Outpatient Visit [id number] 2022-03-29 00:00:00 2022-03-29 00:00:00 Outpatient Visit [id number] [id number] [id number]-[id number] d1d1ff 2022-03-23 00:00:00 2022-03-23 00:00:00 Outpatient Visit [id number] -[id number] [id number]-[id number] [id number] 2022-03-20 00:00:00 2022-03-20 00:00:00 Outpatient Visit [id number] 2022-03-11 00:00:00 2022-03-11 00:00:00 Outpatient Visit [id number] [id number] [id number] 2022-03-05 00:00:00 2022-03-05 00:00:00 Outpatient Visit [id number] -[id number] [id number]-[id number] 2022-02-28 00:00:00 2022-02-28 00:00:00 Outpatient Visit [id number] [id number] 00:00:00 2022-02-25 00:00:00 Outpatient Visit [id number]-8 [id number] 20b2eb 2019-11-17 00:00:00 2019-11-17 00:00:00 Telephone Whitaker Guerrero Schwab [facility] [id number] [facility] 2019-10-25 00:00:00 2019-10-25 00:00:00 Orders Only Doctor Unassigned, [place] [facility] [id number] [facility] 2019-10-21 00:00:00 2019-10-21 00:00:00 Office Visit Arlene Valentino [facility] Encounter/ [id number] [facility] 2019-10-21 00:00:00 2019-10-21 00:00:00 Office Visit Arlene Valentino [facility]CIAL [facility]VOC[facility] Encounter/ [id number] [facility] 2019-10-19 00:00:00 2019-10-19 00:00:00 Office Visit Arlene Valentino [place] [facility] PATIENT FINANCIAL ADVOCATE Encounter/ [id number] [facility] 2019-10-19 00:00:00 2019-10-19 00:00:00 Office Visit Arlene Valentino [facility] PATIENT FINANCIAL ADVOCATE Encounter/ [id number] [facility] 2019-10-19 00:00:00 2019-10-19 00:00:00 Office Visit Arlene Valentino [facility] PATIENT FINANCIAL ADVOCATE Encounter/ [id number] [facility] 2019-10-18 00:00:00 2019-10-18 00:00:00 Office Visit Arlene Valent[facility] PATIENT FINANCIAL ADVOCATE Encounter/ [id number] [facility] 2019-10-15 00:00:00 2019-10-15 00:00:00 Office Visit Arlene Valentino [facility] PATIENT FINANCIAL ADVOCATE Encounter/ [id number] [facility] 2019-10-14 00:00:00 2019-10-14 00:00:00 Office Visit [facility]/ [id number] [facility] 2019-10-14 00:00:00 2019-10-14 00:00:00 Office Visit [facility]/ [id number] [facility] 2019-10-14 00:00:00 2019-10-14 00:00:00 Office Visit [facility] PATIENT FINANCIAL ADVOCATE Encounter/ [id number] [facility] 2019-10-14 00:00:00 2019-10-14 00:00:00 Office Visit [facility] PATIENT FINANCIAL ADVOCATE Encounter/ [id number] [facility] 2019-10-14 00:00:00 2019-10-14 00:00:00 Office Visit [facility] Maria Castillo, Stephanie A [facility] PATIENT FINANCIAL ADVOCATE Encounter/ [id number] [facility] 2019-10-14 00:00:00 2019-10-14 00:00:00 Office Visit Yina Green [facility] PATIENT FINANCIAL ADVOCATE Encounter/ [id number] [facility] 2019-10-11 00:00:00 2019-10-11 00:00:00 Office Visit Adali Mcpherson [facility] Encounter/ [id number] [facility] 2019-10-07 00:00:2019-10-07 00:00:00 Office Visit Responsible Provider, Not Yet Assigned Adali Mcpherson [facility] Encounter/ [id number] [facility] 2019-10-07 00:00:00 2019-10-07 00:00:00 Office Visit Responsible Provider, Not Yet Assigned Adali Mcpherson [facility] Encounter/ [id number] [facility] 2019-10-07 00:00:00 2019-10-07 00:00:00 Office Visit Responsible Provider, Not Yet Assigned Adali Mcpherson [facility] Encounter/ [id number] [facility] 2019-10-07 00:00:00 2019-10-07 00:00:00 Office Visit Yenni Gross [facility] Inspector And Clerk Encounter/ [id number] [facility] 2019-10-07 00:00:00 2019-10-07 00:00:00 Office Visit Fire Equipment Inspector Helper, Health Advocate Student Shayy Rios [facility] Encounter/ [id number] [facility] 2019-10-07 00:00:2019-10-07 00:00:00 Office Visit Colette Chowdary, Tram Dobson, Yenni Tejeda [facility] PATIENT FINANCIAL ADVOCATE Encounter/ [id number] [facility] 2019-10-06 00:00:00 2019-10-06 00:00:00 Office Visit Yina Green [facility] PATIENT FINANCIAL ADVOCATE Encounter/ [id number] [facility] 2019-09-30 15:00:00 2019-09-30 15:00:00 Outpatient R JANNA BONILLA [facility] [id number] [facility] 2019-09-16 00:00:00 2019-09-16 00:00:00 Letter (Out) Janna Bonilla [facility] 1.2.840.114 350.1.13.10 4.2.7.2.686 [id number] [facility] 2019-08-31 16:27:53 2019-08-31 16:42:53 Routine Visit Janna Bonilla [facility] 1.2.840.114 350.1.13.10 4.2.7.2.686 [id number] [facility] 2019-08-27 15:00:00 2019-08-27 18:05:33 Outpatient GUILLERMINA ORNELAS [facility] [id number] [facility] 2019-05-03 00:00:00 2019-05-03 00:00:00 Case Management Guerrero Whitaker [facility] 1.2.840.114 350.1.13.10 4.2.7.2.686 [id number] [facility] 2019-04-21 00:00:00 2019-04-21 00:00:00 Case Management Guerrero Whitaker [facility] 1.2.840.114 350.1.13.10 4.2.7.2.686 [id number] [facility] 2019-04-21 00:00:00 2019-04-21 00:00:00 Telephone Guerrero Whitaker [facility] 1.2.840.114 350.1.13.10 4.2.7.2.686 [id number] [facility] 2019-04-20 00:00:00 2019-04-20 00:00:00 [facility] 1.2.840.114 350.1.13.10 4.2.7.2.686 [id number] 134 [id number] [facility] 2019-04-14 15:00:27 2019-04-14 15:15:27 Wild Animal Caretaker Visit 1, Adc Lab Guerrero Whitaker [facility] 1.2.840.114 350.1.13.10 4.2.7.2.686 [id number] [facility] 2019-04-14 15:00:00 2019-04-14 15:00:00 Outpatient R GUERRERO WHITAKER [facility] [id number] [facility] 2019-04-14 13:41:25 2019-04-14 14:43:27 Routine Visit Guerrero Whitaker [facility] 1.2.840.114 350.1.13.10 4.2.7.2.686 [id number] [facility] 2019-04-14 00:00:00 2019-04-14 00:00:00 Letter (Out) Guerrero Whitaker [facility] 1.2.840.114 350.1.13.10 4.2.7.2.686 [id number] [facility] 2019-04-14 00:00:00 2019-04-14 00:00:00 Orders Only Doctor Unassigned, [place] [facility] 1.2.840.114 350.1.13.10 4.2.7.2.686 [id number] [facility] 2019-04-07 00:00:00 2019-04-07 00:00:00 Telephone Guerrero Whitaker [facility] 1.2.840.114 350.1.13.10 4.2.7.2.686 [id number] [facility] 2019-04-01 00:00:00 2019-04-01 00:00:00 Telephone Guerrero Whitaker [facility] 1.2.840.114 350.1.13.10 4.2.7.2.686 [id number] [facility] 2019-03-17 10:12:58 2019-03-24 08:59:00 Wild Animal Caretaker Visit 1, Adc Lab Guerrero Whitaker [facility] 1..840.114 350.1.13.10 4.2.7.2.686 [id number] [facility] 2019-03-17 10:15:00 2019-03-17 10:15:00 Outpatient R GUERRERO WHITAKER [facility] [id number] [facility] 2019-03-17 08:58:48 2019-03-17 10:02:46 Initial Visit Guerrero Whitaker [facility] 1..840.114 350.1.13.10 4.2.7.2.686 [id number] [facility] Results Test Description Test Time Test Comments Results Result Co mments Source GONORRHEA, NAAT, [id number] 12:29:30* Test Item Value Reference Range Interpretation Comme nts GONORRHEA, NAAT, URINE (test code = 02086) NEGATIVE NEGATIVE Testing is perfo rmed with [employer] MIRA 6800/8800 systems usingreal-time polymerase chain reaction (PCR) method. A negative result does not exclude low level infection, specimensampling error, or collection error. RPR REFLEX TO T. PALLIDUM - [id number] 04:03:32* Test Item Value Reference Range Interpretation Comme nts RPR (test code = 01734) NON-REACTIVE NON-REACTIVE RPR TITER (test code = 3500) NOT INDIC. TITER NOT INDIC. HIV 1/2 4TH GEN, RFLX [id number] 04:01:26* Test Item Value Reference Range Interpretation Comme nts HIV 1/2 4TH GEN, RFLX CONF ( test code = 3514) NON-REACTIVE NON-REACTIVE HEPATITIS PANEL, [id number] 04:01:26* Test Item Value Reference Range Interpretation Comme nts HEPATITIS A IgM (test code = 37491) NON-REACTIVE NON-REACTIVE HEPATITIS B CORE IgM (test code = 4644) NON-REACTIVE NON-REACTIVE HEPATITIS B SURF AG (test code = 2739) NON-REACTIVE NON-REACTIVE HEPATITIS C ANTIBODY (test code = 4675) NON-REACTIVE NON-REACTIVE INTERPRETATION HEPATITIS A: (test code = 2552) (NOTE) Hepatitis A sero logy shows no evidence of acute hepatitis A. INTERPRETATION HEPATITIS B: (test code = 63713) (NOTE) Hepatitis B sero logy shows no evidence of acute hepatitis B andno indication of exposure to hepatitis B virus in the previous huyen eight months. INTERPRETATION HEPATITIS C: (test code = 79090) (NOTE) Hepatitis C sero logy shows no evidence of exposure to hepatitisC virus at this time. It can take up to 12 months after exposure tothe hepatitis C virus for antibodies to become detectable in the blood in certain patients. UNLESS OTHERWISE INDICATED, ALL TESTING PERFORMED AT [facility] [address] [place] [address] MOTOR AND CHASSIS INSPECTOR: SHAYY SANTOS M.D. CLIA NUMBER [id number] [facility] [place]. [id number] CULTURE, ROUTINE SENSITIVITY ON [id number] 14:09:05SPECIMEN NUMBER: [id number] CULTURE, ROUTINE SENSITIVITY ON ALL SPECIMEN NUMBER: [id number] SOURCE: OTHER SOURCE REPORT STATUS: FINAL FINAL REPORT: 07/09/2023 NO SPECIMEN RECEIVED FOR TESTING. CHARGES DELETED.HIV 1/2 4TH GEN, RFLX [id number] 02:08:57* Test Item Value Reference Range Interpretation Comme nts HIV 1/2 4TH GEN, RFLX CONF ( test code = 3514) NON-REACTIVE NON-REACTIVE HEPATITIS PANEL, [id number] 02:08:57* Test Item Value Reference Range Interpretation Comme nts HEPATITIS A IgM (test code = 76356) NON-REACTIVE NON-REACTIVE HEPATITIS B CORE IgM (test code = 4644) NON-REACTIVE NON-REACTIVE HEPATITIS B SURF AG (test code = 2739) NON-REACTIVE NON-REACTIVE HEPATITIS C ANTIBODY (test code = 4675) NON-REACTIVE NON-REACTIVE INTERPRETATION HEPATITIS A: (test code = 2552) (NOTE) Hepatitis A serology shows no evidence of acute hepatitis A. INTERPRETATION HEPATITIS B: (test code = 81640) (NOTE) Hepatitis B serology shows no evidence of acute hepatitis B andno indication of exposure to hepatitis B virus in the previous huyen eight months. INTERPRETATION HEPATITIS C: (test code = 75606) (NOTE) Hepatitis C serology shows no evidence of exposure to hepatitisC virus at this time. It can take up to 12 months after exposure tothe hepatitis C virus for antibodies to become detectable in the blood in certain patients. [id number] 23:37:07* Test Item Value Reference Range Interpretation Comme nts RPR RESULT (test code = 3501) NON-REACTIVE NON-REACTIVE RPR TITER (test code = 3500) NOT INDIC. TITER NOT INDIC. CT/NG, NAAT, [id number] 14:03:18* Test Item Value Reference Range Interpretation Comme nts CHLAMYDIA, NAAT, URINE (test code = 35710) NEGATIVE NEGATIVE Testing is perfo rmed with [employer] MIRA 6800/8800 systems usingreal-time polymerase chain reaction (PCR) method. A negative result does not exclude low level infection, specimensampling error, or collection error. GONORRHEA, NAAT, URINE (test code = 99056) NEGATIVE NEGATIVE Testing is perfo rmed with [employer] MIRA 6800/8800 systems usingreal-time polymerase chain reaction (PCR) method. A negative result does not exclude low level infection, specimensampling error, or collection error. UNLESS OTHERWISE INDICATED, ALL TESTING PERFORMED AT [facility] [address] [place] [address] MOTOR AND CHASSIS INSPECTOR: SHAYY SANTOS M.D. CLIA NUMBER [id number] [place]. [id number] CULTURE, [id number] 11:36:54SPECIMEN NUMBER: [id number] CULTURE, URINE SPECIMEN NUMBER: [id number] SPECIMEN COMMENT: URINE SOURCE: URINE REPORT STATUS: FINAL FINAL REPORT: 07/07/2023 50-100,000 CFU/ML UROGENITAL LINDSAY PRESENT NO C OMMON PATHOGENSTRICHOMONAS, NAAT, [id number] 16:23:16* Test Item Value Reference Range Interpretation Comme nts TRICHOMONAS, NAAT, URINE (test code = 80050) NEGATIVE NEGATIVE Testing is perfo rmed with [employer] MIRA 6800/8800 method usingreal-time polymerase chain reaction (PCR) method. A negative result does not exclude low level infection, specimensampling error, or collection error. CHLAMYDIA, NAAT, [id number] 16:22:13* Test Item Value Reference Range Interpretation Comme nts CHLAMYDIA, NAAT, URINE (test code = 61808) POSITIVE NEGATIVE A Testing is perfo rmed with [employer] 6800/8800 systems usingreal-time polymerase chain reaction (PCR) method. GONORRHEA, NAAT, [id number] 16:22:13* Test Item Value Reference Range Interpretation Comme nts GONORRHEA, NAAT, URINE (test code = 22708) NEGATIVE NEGATIVE Testing is perfo rmed with [employer] MIRA 6800/8800 systems usingreal-time polymerase chain reaction (PCR) method. A negative result does not exclude low level infection, specimensampling error, or collection error. RPR REFLEX TO T. PALLIDUM - [id number] 05:31:29* Test Item Value Reference Range Interpretation Comme nts RPR (test code = 35790) NON-REACTIVE NON-REACTIVE RPR TITER (test code = 3500) NOT INDIC. TITER NOT INDIC. HIV 1/2 4TH GEN, RFLX [id number] 05:05:42* Test Item Value Reference Range Interpretation Comme nts HIV 1/2 4TH GEN, RFLX CONF ( test code = 3514) NON-REACTIVE NON-REACTIVE HEPATITIS PANEL, [id number] 05:05:42* Test Item Value Reference Range Interpretation Comme nts HEPATITIS A IgM (test code = 32094) NON-REACTIVE NON-REACTIVE HEPATITIS B CORE IgM (test code = 4644) NON-REACTIVE NON-REACTIVE HEPATITIS B SURF AG (test code = 2739) NON-REACTIVE NON-REACTIVE HEPATITIS C ANTIBODY (test code = 4675) NON-REACTIVE NON-REACTIVE INTERPRETATION HEPATITIS A: (test code = 2552) (NOTE) Hepatitis A sero logy shows no evidence of acute hepatitis A. INTERPRETATION HEPATITIS B: (test code = 78153) (NOTE) Hepatitis B sero logy shows no evidence of acute hepatitis B andno indication of exposure to hepatitis B virus in the previous huyen eight months. INTERPRETATION HEPATITIS C: (test code = 03863) (NOTE) Hepatitis C sero logy shows no evidence of exposure to hepatitisC virus at this time. It can take up to 12 months after exposure tothe hepatitis C virus for antibodies to become detectable in the blood in certain patients. [facility] has important pathology staff changes effective 10/16/2022. New pathology staff will provide uninterrupted, excellent patient care and clinical consultation. See URL: [email or web address]. UNLESS OTHERWISE INDICATED, ALL TESTING PERFORMED AT [facility] [address] [place], [place] [address] MOTOR AND CHASSIS INSPECTOR: CAMPOS ALVARENGA M.D. CLIA NUMBER [id number] [place]. [id number] CHLAMYDIA, NAAT, [id number] 13:11:20* Test Item Value Reference Range Interpretation Comme nts CHLAMYDIA, NAAT (test code = 45617) NEGATIVE NEGATIVE IMPORTANT NO KWAKU: SEE ANNOUNCEMENT AT [email or web address] Note: Assay methodology is nucleic acid amplification by otr flatbed company truck driver mediated amplification (TMA) utilizing the Aptima Combo 2 Assay. GONORRHEA, NAAT, [id number] 13:11:20* Test Item Value Reference Range Interpretation Comme nts GONORRHEA, NAAT (test code = 08138) NEGATIVE NEGATIVE IMPORTANT NO KWAKU: SEE ANNOUNCEMENT AT [email or web address] Note: Assay methodology is nucleic acid amplification by otr flatbed company truck driver mediated amplification (TMA) utilizing the Aptima Combo 2 Assay. UNLESS OTHERWISE INDICATED, [facility] [address] [place] [address] MOTOR AND CHASSIS INSPECTOR: CAMPOS ALVARENGA M.D. CLIA NUMBER [id number] [place]. [id number] CHLAMYDIA, AMPLIFIED, [id number] 00:00:00* Test Item Value Reference Range Interpretation Comme nts CHLAMYDIA, NAAT (test code = 93763) NEGATIVE CHLAMYDIA, AMPLIFIED, [id number] 00:00:00* Test Item Value Reference Range Interpretation Comme nts CHLAMYDIA, NAAT (test code = 34797) NEGATIVE GC, AMPLIFIED, [id number] 00:00:00* Test Item Value Reference Range Interpretation Comme nts GONORRHEA, NAAT (test code = 02126) NEGATIVE GC, AMPLIFIED, [id number] 00:00:00* Test Item Value Reference Range Interpretation Comme nts GONORRHEA, NAAT (test code = 18434) NEGATIVE CHLAMYDIA, AMPLIFIED, [id number] 00:00:00* Test Item Value Reference Range Interpretation Comme nts CHLAMYDIA, NAAT (test code = 98338) NEGATIVE CHLAMYDIA, AMPLIFIED, [id number] 00:00:00* Test Item Value Reference Range Interpretation Comme nts CHLAMYDIA, NAAT (test code = 23019) NEGATIVE GC, AMPLIFIED, [id number] 00:00:00* Test Item Value Reference Range Interpretation Comme nts GONORRHEA, NAAT (test code = 86386) NEGATIVE GC, AMPLIFIED, [id number] 00:00:00* Test Item Value Reference Range Interpretation Comme nts GONORRHEA, NAAT (test code = 46904) NEGATIVE CHLAMYDIA, AMPLIFIED, [id number] 00:00:00* Test Item Value Reference Range Interpretation Comme nts CHLAMYDIA, NAAT (test code = 07477) NEGATIVE GC, AMPLIFIED, [id number] 00:00:00* Test Item Value Reference Range Interpretation Comme nts GONORRHEA, NAAT (test code = 67346) NEGATIVE CHLAMYDIA, AMPLIFIED, [id number] 00:00:00* Test Item Value Reference Range Interpretation Comme nts CHLAMYDIA, NAAT (test code = 64885) NEGATIVE GC, AMPLIFIED, [id number] 00:00:00* Test Item Value Reference Range Interpretation Comme nts GONORRHEA, NAAT (test code = 27600) NEGATIVE CHLAMYDIA, AMPLIFIED, [id number] 00:00:00* Test Item Value Reference Range Interpretation Comme nts CHLAMYDIA, NAAT (test code = 28359) NEGATIVE GC, AMPLIFIED, [id number] 00:00:00* Test Item Value Reference Range Interpretation Comme nts GONORRHEA, NAAT (test code = 01181) NEGATIVE CHLAMYDIA, AMPLIFIED, [id number] 00:00:00* Test Item Value Reference Range Interpretation Comme nts CHLAMYDIA, NAAT (test code = 46327) NEGATIVE CHLAMYDIA, AMPLIFIED, [id number] 00:00:00* Test Item Value Reference Range Interpretation Comme nts CHLAMYDIA, NAAT (test code = 71584) NEGATIVE GC, AMPLIFIED, [id number] 00:00:00* Test Item Value Reference Range Interpretation Comme nts GONORRHEA, NAAT (test code = 16752) NEGATIVE GC, AMPLIFIED, [id number] 00:00:00* Test Item Value Reference Range Interpretation Comme nts GONORRHEA, NAAT (test code = 68973) NEGATIVE CHLAMYDIA, AMPLIFIED, [id number] 00:00:00* Test Item Value Reference Range Interpretation Comme nts CHLAMYDIA, NAAT (test code = 68054) NEGATIVE GC, AMPLIFIED, [id number] 00:00:00* Test Item Value Reference Range Interpretation Comme nts GONORRHEA, NAAT (test code = 44556) NEGATIVE CHLAMYDIA, AMPLIFIED, [id number] 00:00:00* Test Item Value Reference Range Interpretation Comme nts CHLAMYDIA, NAAT (test code = 91141) NEGATIVE CHLAMYDIA, AMPLIFIED, [id number] 00:00:00* Test Item Value Reference Range Interpretation Comme nts CHLAMYDIA, NAAT (test code = 53195) NEGATIVE GC, AMPLIFIED, [id number] 00:00:00* Test Item Value Reference Range Interpretation Comme nts GONORRHEA, NAAT (test code = 33874) NEGATIVE GC, AMPLIFIED, [id number] 00:00:00* Test Item Value Reference Range Interpretation Comme nts GONORRHEA, NAAT (test code = 38794) NEGATIVE CT/NG, NAAT, [id number] 19:10:11* Test Item Value Reference Range Interpretation Comme nts GONORRHEA, NAAT (test code = 64518) NEGATIVE NEGATIVE IMPORTANT NO KWAKU: SEE ANNOUNCEMENT AT [email or web address] INMANobasUrineKit Note: Assay methodology is nucleic acid amplification by otr flatbed company truck driver mediated amplification (TMA) utilizing the Aptima Combo 2 Assay. CHLAMYDIA, NAAT (test code = 03840) POSITIVE NEGATIVE A IMPORTANT NO KWAKU: SEE ANNOUNCEMENT AT [email or web address] heCobasUrineKit Note: Assay methodology is nucleic acid amplification by otr flatbed company truck driver mediated amplification (TMA) utilizing the Aptima Combo 2 Assay. UNLESS OTHERWISE INDICATED, ALL TEST[facility] [address] [place] [address] MOTOR AND CHASSIS INSPECTOR: CAMPOS ALVARENGA M.D. CLIA NUMBER [id number] [place]. [id number] GC AND CHLAMYDIA, AMPLIFIED, [id number] 00:00:00* Test Item Value Reference Range Interpretation Comme nts GONORRHEA, NAAT (test code = 13386) NEGATIVE CHLAMYDIA, NAAT (test code = 81849) POSITIVE GC AND CHLAMYDIA, AMPLIFIED, [id number] 00:00:00* Test Item Value Reference Range Interpretation Comme nts GONORRHEA, NAAT (test code = 71551) NEGATIVE CHLAMYDIA, NAAT (test code = 95538) POSITIVE GC AND CHLAMYDIA, AMPLIFIED, [id number] 00:00:00* Test Item Value Reference Range Interpretation Comme nts GONORRHEA, NAAT (test code = 24384) NEGATIVE CHLAMYDIA, NAAT (test code = 19777) POSITIVE GC AND CHLAMYDIA, AMPLIFIED, [id number] 00:00:00* Test Item Value Reference Range Interpretation Comme nts GONORRHEA, NAAT (test code = 70030) NEGATIVE CHLAMYDIA, NAAT (test code = 58510) POSITIVE GC AND CHLAMYDIA, AMPLIFIED, [id number] 00:00:00* Test Item Value Reference Range Interpretation Comme nts GONORRHEA, NAAT (test code = 42396) NEGATIVE CHLAMYDIA, NAAT (test code = 81939) POSITIVE GC AND CHLAMYDIA, AMPLIFIED, [id number] 00:00:00* Test Item Value Reference Range Interpretation Comme nts GONORRHEA, NAAT (test code = 60067) NEGATIVE CHLAMYDIA, NAAT (test code = 89739) POSITIVE GC AND CHLAMYDIA, AMPLIFIED, [id number] 00:00:00* Test Item Value Reference Range Interpretation Comme nts GONORRHEA, NAAT (test code = 91187) NEGATIVE CHLAMYDIA, NAAT (test code = 92064) POSITIVE GC AND CHLAMYDIA, AMPLIFIED, [id number] 00:00:00* Test Item Value Reference Range Interpretation Comme nts GONORRHEA, NAAT (test code = 15345) NEGATIVE CHLAMYDIA, NAAT (test code = 43217) POSITIVE GC AND CHLAMYDIA, AMPLIFIED, [id number] 00:00:00* Test Item Value Reference Range Interpretation Comme nts GONORRHEA, NAAT (test code = 20874) NEGATIVE CHLAMYDIA, NAAT (test code = 36767) POSITIVE GC AND CHLAMYDIA, AMPLIFIED, [id number] 00:00:00* Test Item Value Reference Range Interpretation Comme nts GONORRHEA, NAAT (test code = 47357) NEGATIVE CHLAMYDIA, NAAT (test code = 67445) POSITIVE GC AND CHLAMYDIA, AMPLIFIED, [id number] 00:00:00* Test Item Value Reference Range Interpretation Comme nts GONORRHEA, NAAT (test code = 24481) NEGATIVE CHLAMYDIA, NAAT (test code = 99126) POSITIVE GC AND CHLAMYDIA, AMPLIFIED, [id number] 00:00:00* Test Item Value Reference Range Interpretation Comme nts GONORRHEA, NAAT (test code = 93703) NEGATIVE CHLAMYDIA, NAAT (test code = 86260) POSITIVE HIV AB/AG COMBO RFLX [id number] 00:00:00* Test Item Value Reference Range Interpretation Comme nts HIV 1/2 4TH GEN, RFLX CONF ( test code = 3514) NON-REACTIVE HIV AB/AG COMBO RFLX [id number] 00:00:00* Test Item Value Reference Range Interpretation Comme nts HIV 1/2 4TH GEN, RFLX CONF ( test code = 3514) NON-REACTIVE ACUTE HEPATITIS [id number] 00:00:00* Test Item Value Reference Range Interpretation Comme nts HEPATITIS A IgM (test code = 13482) NON-REACTIVE HEPATITIS B CORE IgM (test c ode = 4644) NON-REACTIVE HEPATITIS B SURF AG (test co de = 2739) NON-REACTIVE HEPATITIS C ANTIBODY (test c ode = 4675) NON-REACTIVE INTERPRETATION HEPATITIS A: (test code = 2552) (NOTE) INTERPRETATION HEPATITIS B: (test code = 13658) (NOTE) INTERPRETATION HEPATITIS C: (test code = 16647) (NOTE) ACUTE HEPATITIS [id number] 00:00:00* Test Item Value Reference Range Interpretation Comme nts HEPATITIS A IgM (test code = 82538) NON-REACTIVE HEPATITIS B CORE IgM (test c ode = 4644) NON-REACTIVE HEPATITIS B SURF AG (test co de = 2739) NON-REACTIVE HEPATITIS C ANTIBODY (test c ode = 4675) NON-REACTIVE INTERPRETATION HEPATITIS A: (test code = 2552) (NOTE) INTERPRETATION HEPATITIS B: (test code = 37587) (NOTE) INTERPRETATION HEPATITIS C: (test code = 09469) (NOTE) GC, AMPLIFIED, [id number] 00:00:00* Test Item Value Reference Range Interpretation Comme nts GONORRHEA, NAAT (test code = 22096) NEGATIVE GC, AMPLIFIED, [id number] 00:00:00* Test Item Value Reference Range Interpretation Comme nts GONORRHEA, NAAT (test code = 55596) NEGATIVE CHLAMYDIA, AMPLIFIED, [id number] 00:00:00* Test Item Value Reference Range Interpretation Comme nts CHLAMYDIA, NAAT (test code = 62410) POSITIVE CHLAMYDIA, AMPLIFIED, [id number] 00:00:00* Test Item Value Reference Range Interpretation Comme nts CHLAMYDIA, NAAT (test code = 93859) POSITIVE HIV AB/AG COMBO RFLX [id number] 00:00:00* Test Item Value Reference Range Interpretation Comme nts HIV 1/2 4TH GEN, RFLX CONF ( test code = 3514) NON-REACTIVE HIV AB/AG COMBO RFLX [id number] 00:00:00* Test Item Value Reference Range Interpretation Comme nts HIV 1/2 4TH GEN, RFLX CONF ( test code = 3514) NON-REACTIVE ACUTE HEPATITIS [id number] 00:00:00* Test Item Value Reference Range Interpretation Comme nts HEPATITIS A IgM (test code = 50328) NON-REACTIVE HEPATITIS B CORE IgM (test c ode = 4644) NON-REACTIVE HEPATITIS B SURF AG (test co de = 2739) NON-REACTIVE HEPATITIS C ANTIBODY (test c ode = 4675) NON-REACTIVE INTERPRETATION HEPATITIS A: (test code = 2552) (NOTE) INTERPRETATION HEPATITIS B: (test code = 36369) (NOTE) INTERPRETATION HEPATITIS C: (test code = 33028) (NOTE) ACUTE HEPATITIS [id number] 00:00:00* Test Item Value Reference Range Interpretation Comme nts HEPATITIS A IgM (test code = 88112) NON-REACTIVE HEPATITIS B CORE IgM (test c ode = 4644) NON-REACTIVE HEPATITIS B SURF AG (test co de = 2739) NON-REACTIVE HEPATITIS C ANTIBODY (test c ode = 4675) NON-REACTIVE INTERPRETATION HEPATITIS A: (test code = 2552) (NOTE) INTERPRETATION HEPATITIS B: (test code = 93965) (NOTE) INTERPRETATION HEPATITIS C: (test code = 60924) (NOTE) GC, AMPLIFIED, [id number] 00:00:00* Test Item Value Reference Range Interpretation Comme nts GONORRHEA, NAAT (test code = 36452) NEGATIVE GC, AMPLIFIED, [id number] 00:00:00* Test Item Value Reference Range Interpretation Comme nts GONORRHEA, NAAT (test code = 40808) NEGATIVE CHLAMYDIA, AMPLIFIED, [id number] 00:00:00* Test Item Value Reference Range Interpretation Comme nts CHLAMYDIA, NAAT (test code = 62450) POSITIVE CHLAMYDIA, AMPLIFIED, [id number] 00:00:00* Test Item Value Reference Range Interpretation Comme nts CHLAMYDIA, NAAT (test code = 42170) POSITIVE HIV AB/AG COMBO RFLX [id number] 00:00:00* Test Item Value Reference Range Interpretation Comme nts HIV 1/2 4TH GEN, RFLX CONF ( test code = 3514) NON-REACTIVE ACUTE HEPATITIS [id number] 00:00:00* Test Item Value Reference Range Interpretation Comme nts HEPATITIS A IgM (test code = 55175) NON-REACTIVE HEPATITIS B CORE IgM (test c ode = 4644) NON-REACTIVE HEPATITIS B SURF AG (test co de = 2739) NON-REACTIVE HEPATITIS C ANTIBODY (test c ode = 4675) NON-REACTIVE INTERPRETATION HEPATITIS A: (test code = 2552) (NOTE) INTERPRETATION HEPATITIS B: (test code = 11659) (NOTE) INTERPRETATION HEPATITIS C: (test code = 49218) (NOTE) GC, AMPLIFIED, [id number] 00:00:00* Test Item Value Reference Range Interpretation Comme nts GONORRHEA, NAAT (test code = 76843) NEGATIVE CHLAMYDIA, AMPLIFIED, [id number] 00:00:00* Test Item Value Reference Range Interpretation Comme nts CHLAMYDIA, NAAT (test code = 91162) POSITIVE HIV AB/AG COMBO RFLX [id number] 00:00:00* Test Item Value Reference Range Interpretation Comme nts HIV 1/2 4TH GEN, RFLX CONF ( test code = 3514) NON-REACTIVE ACUTE HEPATITIS [id number] 00:00:00* Test Item Value Reference Range Interpretation Comme nts HEPATITIS A IgM (test code = 23516) NON-REACTIVE HEPATITIS B CORE IgM (test c ode = 4644) NON-REACTIVE HEPATITIS B SURF AG (test co de = 2739) NON-REACTIVE HEPATITIS C ANTIBODY (test c ode = 4675) NON-REACTIVE INTERPRETATION HEPATITIS A: (test code = 2552) (NOTE) INTERPRETATION HEPATITIS B: (test code = 51769) (NOTE) INTERPRETATION HEPATITIS C: (test code = 00297) (NOTE) GC, AMPLIFIED, [id number] 00:00:00* Test Item Value Reference Range Interpretation Comme nts GONORRHEA, NAAT (test code = 02021) NEGATIVE CHLAMYDIA, AMPLIFIED, [id number] 00:00:00* Test Item Value Reference Range Interpretation Comme nts CHLAMYDIA, NAAT (test code = 54531) POSITIVE HIV AB/AG COMBO RFLX [id number] 00:00:00* Test Item Value Reference Range Interpretation Comme nts HIV 1/2 4TH GEN, RFLX CONF ( test code = 3514) NON-REACTIVE ACUTE HEPATITIS [id number] 00:00:00* Test Item Value Reference Range Interpretation Comme nts HEPATITIS A IgM (test code = 55029) NON-REACTIVE HEPATITIS B CORE IgM (test c ode = 4644) NON-REACTIVE HEPATITIS B SURF AG (test co de = 2739) NON-REACTIVE HEPATITIS C ANTIBODY (test c ode = 4675) NON-REACTIVE INTERPRETATION HEPATITIS A: (test code = 2552) (NOTE) INTERPRETATION HEPATITIS B: (test code = 28953) (NOTE) INTERPRETATION HEPATITIS C: (test code = 62503) (NOTE) GC, AMPLIFIED, [id number] 00:00:00* Test Item Value Reference Range Interpretation Comme nts GONORRHEA, NAAT (test code = 53370) NEGATIVE CHLAMYDIA, AMPLIFIED, [id number] 00:00:00* Test Item Value Reference Range Interpretation Comme nts CHLAMYDIA, NAAT (test code = 71431) POSITIVE HIV AB/AG COMBO RFLX [id number] 00:00:00* Test Item Value Reference Range Interpretation Comme nts HIV 1/2 4TH GEN, RFLX CONF ( test code = 3514) NON-REACTIVE HIV AB/AG COMBO RFLX [id number] 00:00:00* Test Item Value Reference Range Interpretation Comme nts HIV 1/2 4TH GEN, RFLX CONF ( test code = 3514) NON-REACTIVE ACUTE HEPATITIS [id number] 00:00:00* Test Item Value Reference Range Interpretation Comme nts HEPATITIS A IgM (test code = 01431) NON-REACTIVE HEPATITIS B CORE IgM (test c ode = 4644) NON-REACTIVE HEPATITIS B SURF AG (test co de = 2739) NON-REACTIVE HEPATITIS C ANTIBODY (test c ode = 4675) NON-REACTIVE INTERPRETATION HEPATITIS A: (test code = 2552) (NOTE) INTERPRETATION HEPATITIS B: (test code = 67864) (NOTE) INTERPRETATION HEPATITIS C: (test code = 21031) (NOTE) ACUTE HEPATITIS [id number] 00:00:00* Test Item Value Reference Range Interpretation Comme nts HEPATITIS A IgM (test code = 89154) NON-REACTIVE HEPATITIS B CORE IgM (test c ode = 4644) NON-REACTIVE HEPATITIS B SURF AG (test co de = 2739) NON-REACTIVE HEPATITIS C ANTIBODY (test c ode = 4675) NON-REACTIVE INTERPRETATION HEPATITIS A: (test code = 2552) (NOTE) INTERPRETATION HEPATITIS B: (test code = 35761) (NOTE) INTERPRETATION HEPATITIS C: (test code = 38751) (NOTE) GC, AMPLIFIED, [id number] 00:00:00* Test Item Value Reference Range Interpretation Comme nts GONORRHEA, NAAT (test code = 37395) NEGATIVE GC, AMPLIFIED, [id number] 00:00:00* Test Item Value Reference Range Interpretation Comme nts GONORRHEA, NAAT (test code = 34426) NEGATIVE CHLAMYDIA, AMPLIFIED, [id number] 00:00:00* Test Item Value Reference Range Interpretation Comme nts CHLAMYDIA, NAAT (test code = 17509) POSITIVE CHLAMYDIA, AMPLIFIED, [id number] 00:00:00* Test Item Value Reference Range Interpretation Comme nts CHLAMYDIA, NAAT (test code = 14323) POSITIVE HIV AB/AG COMBO RFLX [id number] 00:00:00* Test Item Value Reference Range Interpretation Comme nts HIV 1/2 4TH GEN, RFLX CONF ( test code = 3514) NON-REACTIVE ACUTE HEPATITIS [id number] 00:00:00* Test Item Value Reference Range Interpretation Comme nts HEPATITIS A IgM (test code = 03895) NON-REACTIVE HEPATITIS B CORE IgM (test c ode = 4644) NON-REACTIVE HEPATITIS B SURF AG (test co de = 2739) NON-REACTIVE HEPATITIS C ANTIBODY (test c ode = 4675) NON-REACTIVE INTERPRETATION HEPATITIS A: (test code = 2552) (NOTE) INTERPRETATION HEPATITIS B: (test code = 50081) (NOTE) INTERPRETATION HEPATITIS C: (test code = 25115) (NOTE) HIV AB/AG COMBO RFLX [id number] 00:00:00* Test Item Value Reference Range Interpretation Comme nts HIV 1/2 4TH GEN, RFLX CONF ( test code = 3514) NON-REACTIVE HIV AB/AG COMBO RFLX [id number] 00:00:00* Test Item Value Reference Range Interpretation Comme nts HIV 1/2 4TH GEN, RFLX CONF ( test code = 3514) NON-REACTIVE GC, AMPLIFIED, [id number] 00:00:00* Test Item Value Reference Range Interpretation Comme nts GONORRHEA, NAAT (test code = 34598) NEGATIVE ACUTE HEPATITIS [id number] 00:00:00* Test Item Value Reference Range Interpretation Comme nts HEPATITIS A IgM (test code = 36458) NON-REACTIVE HEPATITIS B CORE IgM (test c ode = 4644) NON-REACTIVE HEPATITIS B SURF AG (test co de = 2739) NON-REACTIVE HEPATITIS C ANTIBODY (test c ode = 4675) NON-REACTIVE INTERPRETATION HEPATITIS A: (test code = 2552) (NOTE) INTERPRETATION HEPATITIS B: (test code = 65607) (NOTE) INTERPRETATION HEPATITIS C: (test code = 70988) (NOTE) ACUTE HEPATITIS [id number] 00:00:00* Test Item Value Reference Range Interpretation Comme nts HEPATITIS A IgM (test code = 36337) NON-REACTIVE HEPATITIS B CORE IgM (test c ode = 4644) NON-REACTIVE HEPATITIS B SURF AG (test co de = 2739) NON-REACTIVE HEPATITIS C ANTIBODY (test c ode = 4675) NON-REACTIVE INTERPRETATION HEPATITIS A: (test code = 2552) (NOTE) INTERPRETATION HEPATITIS B: (test code = 79969) (NOTE) INTERPRETATION HEPATITIS C: (test code = 95191) (NOTE) GC, AMPLIFIED, [id number] 00:00:00* Test Item Value Reference Range Interpretation Comme nts GONORRHEA, NAAT (test code = 21332) NEGATIVE GC, AMPLIFIED, [id number] 00:00:00* Test Item Value Reference Range Interpretation Comme nts GONORRHEA, NAAT (test code = 45090) NEGATIVE CHLAMYDIA, AMPLIFIED, [id number] 00:00:00* Test Item Value Reference Range Interpretation Comme nts CHLAMYDIA, NAAT (test code = 81828) POSITIVE CHLAMYDIA, AMPLIFIED, [id number] 00:00:00* Test Item Value Reference Range Interpretation Comme nts CHLAMYDIA, NAAT (test code = 30870) POSITIVE CHLAMYDIA, AMPLIFIED, [id number] 00:00:00* Test Item Value Reference Range Interpretation Comme nts CHLAMYDIA, NAAT (test code = 20089) POSITIVE hepatitis B surface [id number] 15:42:00* Test Item Value Reference Range Interpretation Comme nts hepatitis B surface antigen (test code = 79) Negative Negative [facility] HealthRh [id number] 15:42:00* Test Item Value Reference Range Interpretation Comme nts Rh antibody (test code = 256) Negative Negative [facility] glucose, 1 hour after 50 gm oral [id number] 15:42:00* Test Item Value Reference Range Interpretation Comme nts blood glucose, 1 hour after 50 gm oral glucose (test code = 1039) 111 mg/dL 65-139 [facility]HIV-CMIA (Chemiluminescent Microparticle Immuno Assay) 2019-10-14 15:42:00* Test Item Value Reference Range Interpretation Comme nts HIV-CMIA (Chemiluminescent Microparticle Immuno Assay) (test code = 817889) Non Reactive Non Reactive [facility]rapid plasma reagin antibody, [id number] 15:42:00* Test Item Value Reference Range Interpretation Comme nts rapid plasma reagin antibody , serum (test code = 308) Non Reactive Non Reactive [facility] Healthrubella antibody, serum, [id number] 15:42:00* Test Item Value Reference Range Interpretation Comme nts rubella antibody, serum, IgG (test code = 81) 1.33 Immune >0.99 [facility] HealthRh [id number] 15:42:00* Test Item Value Reference Range Interpretation Comme nts Rh antigen (test code = 255) Positive [facility] HealthABO blood [id number] 15:42:00* Test Item Value Reference Range Interpretation Comme nts ABO blood group (test code = 116) A [facility] HealthNeisseria gonorrhoeae DNA [id number] 15:42:00* Test Item Value Reference Range Interpretation Comme nts Neisseria gonorrhoeae DNA pr obe (test code = 52609-2) Negative Negative [facility]chlamydia DNA [id number] 15:42:00* Test Item Value Reference Range Interpretation Comme nts chlamydia DNA probe (test co de = 14490-7) Negative Negative [facility] Healthimmature granulocytes, percentage of total cells, blood 2019-10-14 15:42:00* Test Item Value Reference Range Interpretation Comme nts immature granulocytes, perce ntage of total cells, blood (test code = 313089) 0 % [facility]basophil count, [id number] 15:42:00* Test Item Value Reference Range Interpretation Comme nts basophil count, absolute (te st code = 14453) 0.0 x10E3/uL 0.0-0.3 [facility] HealthEosinophil Absolute [id number] 15:42:00* Test Item Value Reference Range Interpretation Comme nts Eosinophil Absolute Count (t est code = 440758) 0.0 X10E3/UL 0.0-0.4 [facility]monocyte count, blood, [id number] 15:42:00* Test Item Value Reference Range Interpretation Comme nts monocyte count, blood, autom ated (test code = 3076) 0.8 X10E3/UL 0.1-0.9 [facility]lymphocyte count, blood, [id number] 15:42:00* Test Item Value Reference Range Interpretation Comme nts lymphocyte count, blood, automated (test code = 3074) 1.2 X10E3/UL 0.7-3.1 [facility] HealthAbsolute [id number] 15:42:00* Test Item Value Reference Range Interpretation Comme nts Absolute Neutrophils (test c ode = 10865) 7.7 X10E3/UL 1.4-7.0 H [facility] Healthbasophils as percent of blood ntyfmspfvb9231-49-44 15:42:00* Test Item Value Reference Range Interpretation Comme nts basophils as percent of bloo d leukocytes (test code = 2426) 0 % [facility]altheosinophils as percent of blood hljcsfzear9342-61-68 15:42:00* Test Item Value Reference Range Interpretation Comme nts eosinophils as percent of bl ood leukocytes (test code = 4170) 0 % [facility] Healthmonocytes as percent of blood zwurjlgnqi1592-11-97 15:42:00* Test Item Value Reference Range Interpretation Comme nts monocytes as percent of bloo d leukocytes (test code = 2421) 8 % [facility]lymphocytes as percent of blood etxkrfazey9995-33-16 15:42:00* Test Item Value Reference Range Interpretation Comme nts lymphocytes as percent of bl ood leukocytes (test code = 317) 12 % [facility]neutrophils as percent of blood [id number] 15:42:00* Test Item Value Reference Range Interpretation Comme nts neutrophils as percent of bl ood leukocytes (test code = 316) 80 % [facility] Healthplatelet [id number] 15:42:00* Test Item Value Reference Range Interpretation Comme [facility] platelet count (test code = 66) 422 X10E3/UL 150-450 [facility]red blood cell distribution [id number] 15:42:00* Test Item Value Reference Range Interpretation Comme [facility] red blood cell distribution width (test code = 1030) 14.1 % 11.7-15.4 [facility] corpuscular hemoglobin concentration, [id number] 15:42:00* Test Item Value Reference Range Interpretation Comme [facility] mean corpuscular hemoglobin concentration, RBC (test code = 1029) 32.3 G/DL 31.5-35.7 [facility] corpuscular hemoglobin, [id number] 15:42:00* Test Item Value Reference Range Interpretation Comme [facility] mean corpuscular hemoglobin, RBC (test code = 1031) 24.2 pg 26.6-33.0 L [facility] corpuscular volume, [id number] 15:42:00* Test Item Value Reference Range Interpretation Comme nts mean corpuscular volume, RBC (test code = 315) 75 fL 79-97 L [facility] Healthhematocrit, [id number] 15:42:00* Test Item Value Reference Range Interpretation Comme nts hematocrit, blood (test code = 64) 32.2 % 34.0-46.6 L [facility]hemoglobin, [id number] 15:42:00* Test Item Value Reference Range Interpretation Comme nts hemoglobin, blood (test code = 65) 10.4 g/dL 11.1-15.9 L [facility]altherythrocyte (RBC) [id number] 15:42:00* Test Item Value Reference Range Interpretation Comme nts erythrocyte (RBC) count (ruslan t code = 67) 4.30 X10E6/UL 3.77-5.28 [facility]leukocyte count, [id number] 15:42:00* Test Item Value Reference Range Interpretation Comme nts leukocyte count, blood (test code = 68) 9.7 X10E3/UL 3.4-10.8 [facility] Healthurine dwrgnpb5589-64-58 15:14:00* Test Item Value Reference Range Interpretation Comme nts urine culture (test code = 11092) No growth [facility] HealthNeisseria gonorrhoeae DNA [id number] 15:14:00* Test Item Value Reference Range Interpretation Comme [facility] Neisseria gonorrhoeae DNA pr obe (test code = 49813-4) Negative Negative [facility] Healthchlamydia DNA [id number] 15:14:00* Test Item Value Reference Range Interpretation Comme [facility] chlamydia DNA probe (test co de = 80057-0) Negative Negative [facility] HealthVaginal Group B Strep by Real-Time [id number] 16:28:00 * Test Item Value Reference Range Interpretation Comme nts Vaginal Group B Strep by Cranberry l-Time PCR (test code = 134295) Negative Negative [facility] Healthurine [id number] 16:27:00* Test Item Value Reference Range Interpretation Comme nts urine culture (test code = 05961) MUG [facility] Healthprotein, urine, semiquantitative (dipstick)2019-10-07 16:27:00* Test Item Value Reference Range Interpretation Comme nts protein, urine, semiquantita tive (dipstick) (test code = 1753-3) 33.6 [facility] Healthcreatinine, random, [id number] 16:27:00* Test Item Value Reference Range Interpretation Comme nts creatinine, random, urine (t est code = 5167) 121.8 mg/dL [facility] Healthalanine aminotransferase (SGPT), tozgd9191-98-55 15:59:00 * Test Item Value Reference Range Interpretation Comme nts alanine aminotransferase (SG PT), serum (test code = 40) 13 1/L 0-24 [facility] Healthaspartate aminotransferase (SGOT), fkepf8060-27-63 15:59:00* Test Item Value Reference Range Interpretation Comme nts aspartate aminotransferase ( SGOT), serum (test code = 39) 16 1/L 0-40 [facility] HealthHIV-CMIA (Chemiluminescent Microparticle Immuno Assay) 2019-10-07 15:59:00* Test Item Value Reference Range Interpretation Comme nts HIV-CMIA (Chemiluminescent Microparticle Immuno Assay) (test code = 603898) Non Reactive Non Reactive [facility]rapid plasma reagin antibody, [id number] 15:59:00* Test Item Value Reference Range Interpretation Comme nts rapid plasma reagin antibody , serum (test code = 308) Non Reactive Non Reactive [facility] Healthimmature granulocytes, percentage of total cells, blood 2019-10-07 15:59:00* Test Item Value Reference Range Interpretation Comme nts immature granulocytes, perce ntage of total cells, blood (test code = 280603) 3 % [facility]basophil count, kdbuyhdh1812-69-11 15:59:00* Test Item Value Reference Range Interpretation Comme nts basophil count, absolute (te st code = 58462) 0.0 x10E3/uL 0.0-0.3 [facility] HealthEosinophil Absolute Tylmz0291-00-71 15:59:00* Test Item Value Reference Range Interpretation Comme nts Eosinophil Absolute Count (t est code = 490980) 0.1 X10E3/UL 0.0-0.4 [facility]mon[facility], blood, nwfwfmvsi8191-95-78 15:59:00* Test Item Value Reference Range Interpretation Comme nts monocyte count, blood, autom ated (test code = 3076) 1.2 X10E3/UL 0.1-0.9 H [facility]lymphocyte count, blood, cqxfzodup3318-90-82 15:59:00* Test Item Value Reference Range Interpretation Comme nts lymphocyte count, blood, automated (test code = 3074) 1.6 X10E3/UL 0.7-3.1 [facility]Absolute Idjsjsnfnso3881-74-45 15:59:00* Test Item Value Reference Range Interpretation Comme nts Absolute Neutrophils (test c ode = 40268) 9.4 X10E3/UL 1.4-7.0 H [facility]basophils as percent of blood hriikbeqdj7032-29-43 15:59:00* Test Item Value Reference Range Interpretation Comme nts basophils as percent of bloo d leukocytes (test code = 2426) 0 % [facility]altheosinophils as percent of blood swewqkwkfw8970-05-09 15:59:00* Test Item Value Reference Range Interpretation Comme nts eosinophils as percent of bl ood leukocytes (test code = 4170) 1 % [facility] Healthmonocytes as percent of blood maapjzfakb2518-71-90 15:59:00* Test Item Value Reference Range Interpretation Comme nts monocytes as percent of bloo d leukocytes (test code = 2421) 10 % [facility]lymphocytes as percent of blood vzzrhojdfs0691-12-74 15:59:00* Test Item Value Reference Range Interpretation Comme nts lymphocytes as percent of bl ood leukocytes (test code = 317) 13 % [facility]neutrophils as percent of blood sqwjrssxho5571-27-33 15:59:00* Test Item Value Reference Range Interpretation Comme nts neutrophils as percent of bl ood leukocytes (test code = 316) 73 % [facility]platelet zzbbn0133-27-77 15:59:00* Test Item Value Reference Range Interpretation Comme nts platelet count (test code = 66) 417 X10E3/UL 150-450 [facility]red blood cell distribution obnjb0658-20-83 15:59:00* Test Item Value Reference Range Interpretation Comme nts red blood cell distribution width (test code = 1030) 14.2 % 11.7-15.4 [facility] corpuscular hemoglobin concentration, [id number] 15:59:00* Test Item Value Reference Range Interpretation Comme nts mean corpuscular hemoglobin concentration, RBC (test code = 1029) 31.0 G/DL 31.5-35.7 L [facility] corpuscular hemoglobin, [id number] 15:59:00* Test Item Value Reference Range Interpretation Comme nts mean corpuscular hemoglobin, RBC (test code = 1031) 24.4 pg 26.6-33.0 L [facility] corpuscular volume, [id number] 15:59:00* Test Item Value Reference Range Interpretation Comme nts mean corpuscular volume, RBC (test code = 315) 79 fL 79-97 [facility]hematocrit, qhzbe6602-17-02 15:59:00* Test Item Value Reference Range Interpretation Comme nts hematocrit, blood (test code = 64) 34.8 % 34.0-46.6 [facility]hemoglobin, snubq6777-48-30 15:59:00* Test Item Value Reference Range Interpretation Comme nts hemoglobin, blood (test code = 65) 10.8 g/dL 11.1-15.9 L [facility]altherythrocyte (RBC) [id number] 15:59:00* Test Item Value Reference Range Interpretation Comme [facility] erythrocyte (RBC) count (ruslan t code = 67) 4.42 X10E6/UL 3.77-5.28 [facility]leukocyte count, spwmr3702-87-51 15:59:00* Test Item Value Reference Range Interpretation Comme nts leukocyte count, blood (test code = 68) 12.6 X10E3/UL 3.4-10.8 H [facility] HealthHerpes Simplex Virus Yzlhbwi9500-07-69 14:07:37* Test Item Value Reference Range Interpretation Comme nts Herpes Simplex Virus Genital (test code = 4258) no [facility] URINALYSIS W/O SPECIFIC [id number] 23:11:00* Test Item Value Reference Range Interpretation [...] ve Lab Interpretation (test cod e = 42042-3) Normal [facility]<14 WEEKS US [id number] 17:45:03Addendum by Guerrero Whitaker MD on 04/16/2019 12:47 PMLimited USG for dating and viability:?Single live IUP measured 10 5/7 weeks.?Will date by this USG unless clinically indicated otherwise Casie Whitaker MD?04/16/2019?12:44 PM Limited USG for dating and viability:?Single live IUP kvjuaxxs36 5/7 weeks.?Will date by this USG unless clinically indicated otherwise Guerrero Whitaker MD?04/16/2019?12:44 [facility]Un[facility] CenterCBC WITH DIFFERENTIAL 2019-04-14 21:44:00* Test Item Value [...] 34.1 g/dL 32-36 RDW-SD (test code = 82276-0) 37.2 fL 38.5-49 L RDW-CV (test code = 788-0) 12.5 % 11.5-14 PLT (test code = 777-3) See_Comment H [Automated messa ge] The system which generated this result transmitted reference range: 135 - 361 10*3/?L. The reference range was not used to interpret this result as normal/abnormal. MPV (test code = 69099-8) 8.8 fL 9.4-13.3 L NRBC/100 WBC (test code = 8856486653) See_Comment [Automated [employer] ssage] The system which generated this result transmitted reference range: 0.0 - 10.0 /100 WBCs. The reference range was not used to interpret this result as normal/abnormal. NRBC x10^3 (test code = 4905766748) <0.01 See_Comment [Automated messa ge] The system which generated this result transmitted reference range: 10*3/?L. The reference range was not used to interpret this result as normal/abnormal. GRAN MAT (NEUT) % (test code = 770-8) 71.3 % IMM GRAN % (test code = 8354536607) 0.40 % LYMPH % (test code = 736-9) 19.6 % MONO % (test code = 5905-5) 7.8 % EOS % (test code = 713-8) 0.5 % BASO % (test code = 706-2) 0.4 % GRAN MAT x10^3(ANC) (test code = 2538498404) 5.21 10*3/uL 1.5-10.3 IMM GRAN x10^3 (test code = 4608756633) 0.03 10*3/uL 0-0.06 LYMPH x10^3 (test code = 731-0) 1.43 10*3/uL 0.7-7.4 MONO x10^3 (test code = 742-7) 0.57 10*3/uL 0-0.5 H EOS x10^3 (test code = 711-2) 0.04 10*3/uL 0-0.4 BASO x10^3 (test code = 704-7) 0.03 10*3/uL 0-0.1 Lab Interpretation (test code = 90252-8) Abnormal [facility]<14 WEEKS US [id number] 23:55:04Limited USG for dating due to irregular periods:?transabdominal USG showed intrauterine gestationalsac with yolk sac and no pole Guerrero Whitaker MD?03/20/2019?6:54 PMUnScenic Mountain Medical CenterGALV ONLY - VAGINAL PATHOGENS BY DNA [id number] 17:42:00* Test Item Value Reference Range Interpretation Comme nts Trichomonas vaginalis (test code = 7935167414) Negative Negative Gardnerella vaginalis (test code = 3441039396) Negative Negative Susan species (test code = [id number]) Negative Negative Lab Interpretation (test cod e = 16035-6) [facility] AMPLIFIED [id number] 17:25:00* Test Item Value Reference Range Interpretation Comme nts Lab Interpretation (test cod e = 35542-4) [facility] S[facility]EN [id number] 02:43:00* Test Item Value Reference Range Interpretation Comme nts BENZO U (test code = 5750139963) Negative Negative ELVIS U (test code = 0156353423) Negative Negative AMPHET (test code = 3769085349) Negative Negative THC (test code = 1931831691) Negative Negative METHADONE (test code = 1844075964) Negative Negative Meth U (test code = 9184830478) Negative Negative OPIATES (test code = 0438356033) Negative Negative Cocaine Metabolite (test code = 3026752273) Negative Negative PROPOXY (test code = 1647088890) Negative Negative Tric U (test code = 0799061113) Negative Negative PCP (test code = 6996594265) Negative Negative OXYCOD (test code = 6807671388) Negative Negative ARNULFO (test code = ARNULFO) [...] legal testing). Lab Interpretation (test code = 56521-0) Normal [facility] BETA HCG [id number] 17:07:00* Test Item Value Reference Range Interpretation Comme [facility] BETA HCG (test code = 4884137449) See_Comment [Automated [employer]] The system which generated this result transmitted reference range: Non- female and male patients: <5 mIU/mL. The reference range was not used to interpret this result as normal/abnormal. ARNULFO (test code = ARNULFO) Gestational Age?Range (mIU/mL)1-10?Weeks?4 8-65149687-80 Weeks?44785-65894422 -22 Weeks?7480-63981019- 40 Weeks?1531-629911Lgy tin has been reported to cause a negative bias, interpret results relative to patient's use of biotin. [facility] URINALYSIS W/O SPECIFIC [id number] 14:40:00* Test Item Value Reference Range Interpretation [...] = 3257) N/A Negative - Negati ve [facility] [id number] 14:30:00* Test Item Value Reference Range Interpretation Comme nts POCT PREG (test code = 1605) Positive On board controls acceptable with C Line (test code = 3574) Yes POCT PREG LOT # (test code = 3575) POCT PREG TEST DATE ( test code = 3576) [facility] [id number] 00:00:00* Test Item Value Reference Range Interpretation Comme nts CHOLESTEROL (test code = 2210) 151 MG/DL TRIGLYCERIDES (test code = 2232) 101 MG/DL HDL CHOLESTEROL (test code = 2220) 52 MG/DL CALC LDL CHOL (test code = 2237) 79 MG/DL RISK RATIO LDL/HDL (test cod e = 2238) 1.52 RATIO LIPID [id number] 00:00:00* Test Item Value Reference Range Interpretation Comme nts CHOLESTEROL (test code = 2210) 151 MG/DL TRIGLYCERIDES (test code = 2232) 101 MG/DL HDL CHOLESTEROL (test code = 2220) 52 MG/DL CALC LDL CHOL (test code = 2237) 79 MG/DL RISK RATIO LDL/HDL (test cod e = 2238) 1.52 RATIO BASIC METABOLIC [id number] 00:00:00* Test Item Value Reference Range Interpretation Comme nts GLUCOSE (test code = 2217) 96 MG/DL BUN (test code = 2208) 9 MG/DL CREATININE (test code = 2214) 0.45 MG/DL eGFR AMER. (test code = 84182) (NOTE) ML/MIN/1.73 eGFR NON- AMER. (test code = 51320) NO CALC ML/MIN/1.73 SODIUM (test code = 2231) 142 MEQ/L POTASSIUM (test code = 2228) 4.1 MEQ/L CHLORIDE (test code = 2215) 103 MEQ/L CARBON DIOXIDE (test code = 2206) 26 MEQ/L CALCIUM (test code = 2209) 8.6 MG/DL BASIC METABOLIC [id number] 00:00:00* Test Item Value Reference Range Interpretation Comme nts GLUCOSE (test code = 2217) 96 MG/DL BUN (test code = 2208) 9 MG/DL CREATININE (test code = 2214) 0.45 MG/DL eGFR AMER. (test code = 01134) (NOTE) ML/MIN/1.73 eGFR NON- AMER. (test code = 77501) NO CALC ML/MIN/1.73 SODIUM (test code = 2231) 142 MEQ/L POTASSIUM (test code = 2228) 4.1 MEQ/L CHLORIDE (test code = 2215) 103 MEQ/L CARBON DIOXIDE (test code = 2206) 26 MEQ/L CALCIUM (test code = 2209) 8.6 MG/DL LIPID [id number] 00:00:00* Test Item Value Reference Range Interpretation Comme nts CHOLESTEROL (test code = 2210) 151 MG/DL TRIGLYCERIDES (test code = 2232) 101 MG/DL HDL CHOLESTEROL (test code = 2220) 52 MG/DL CALC LDL CHOL (test code = 2237) 79 MG/DL RISK RATIO LDL/HDL (test cod e = 2238) 1.52 RATIO LIPID [id number] 00:00:00* Test Item Value Reference Range Interpretation Comme nts CHOLESTEROL (test code = 2210) 151 MG/DL TRIGLYCERIDES (test code = 2232) 101 MG/DL HDL CHOLESTEROL (test code = 2220) 52 MG/DL CALC LDL CHOL (test code = 2237) 79 MG/DL RISK RATIO LDL/HDL (test cod e = 2238) 1.52 RATIO BASIC METABOLIC [id number] 00:00:00* Test Item Value Reference Range Interpretation Comme nts GLUCOSE (test code = 2217) 96 MG/DL BUN (test code = 2208) 9 MG/DL CREATININE (test code = 2214) 0.45 MG/DL eGFR AMER. (test code = 67250) (NOTE) ML/MIN/1.73 eGFR NON- AMER. (test code = 72258) NO CALC ML/MIN/1.73 SODIUM (test code = 2231) 142 MEQ/L POTASSIUM (test code = 2228) 4.1 MEQ/L CHLORIDE (test code = 2215) 103 MEQ/L CARBON DIOXIDE (test code = 2206) 26 MEQ/L CALCIUM (test code = 2209) 8.6 MG/DL BASIC METABOLIC [id number] 00:00:00* Test Item Value Reference Range Interpretation Comme nts GLUCOSE (test code = 2217) 96 MG/DL BUN (test code = 2208) 9 MG/DL CREATININE (test code = 2214) 0.45 MG/DL eGFR AMER. (test code = 06560) (NOTE) ML/MIN/1.73 eGFR NON- AMER. (test code = 08621) NO CALC ML/MIN/1.73 SODIUM (test code = 2231) 142 MEQ/L POTASSIUM (test code = 2228) 4.1 MEQ/L CHLORIDE (test code = 2215) 103 MEQ/L CARBON DIOXIDE (test code = 2206) 26 MEQ/L CALCIUM (test code = 2209) 8.6 MG/DL LIPID [id number] 00:00:00* Test Item Value Reference Range Interpretation Comme nts CHOLESTEROL (test code = 2210) 151 MG/DL TRIGLYCERIDES (test code = 2232) 101 MG/DL HDL CHOLESTEROL (test code = 2220) 52 MG/DL CALC LDL CHOL (test code = 2237) 79 MG/DL RISK RATIO LDL/HDL (test cod e = 2238) 1.52 RATIO BASIC METABOLIC [id number] 00:00:00* Test Item Value Reference Range Interpretation Comme nts GLUCOSE (test code = 2217) 96 MG/DL BUN (test code = 2208) 9 MG/DL CREATININE (test code = 2214) 0.45 MG/DL eGFR AMER. (test code = 99943) (NOTE) ML/MIN/1.73 eGFR NON- AMER. (test code = 56163) NO CALC ML/MIN/1.73 SODIUM (test code = 2231) 142 MEQ/L POTASSIUM (test code = 2228) 4.1 MEQ/L CHLORIDE (test code = 2215) 103 MEQ/L CARBON DIOXIDE (test code = 2206) 26 MEQ/L CALCIUM (test code = 2209) 8.6 MG/DL LIPID [id number] 00:00:00* Test Item Value Reference Range Interpretation Comme nts CHOLESTEROL (test code = 2210) 151 MG/DL TRIGLYCERIDES (test code = 2232) 101 MG/DL HDL CHOLESTEROL (test code = 2220) 52 MG/DL CALC LDL CHOL (test code = 2237) 79 MG/DL RISK RATIO LDL/HDL (test cod e = 2238) 1.52 RATIO BASIC METABOLIC [id number] 00:00:00* Test Item Value Reference Range Interpretation Comme nts GLUCOSE (test code = 2217) 96 MG/DL BUN (test code = 2208) 9 MG/DL CREATININE (test code = 2214) 0.45 MG/DL eGFR AMER. (test code = 29503) (NOTE) ML/MIN/1.73 eGFR NON- AMER. (test code = 16209) NO CALC ML/MIN/1.73 SODIUM (test code = 2231) 142 MEQ/L POTASSIUM (test code = 2228) 4.1 MEQ/L CHLORIDE (test code = 2215) 103 MEQ/L CARBON DIOXIDE (test code = 2206) 26 MEQ/L CALCIUM (test code = 2209) 8.6 MG/DL LIPID [id number] 00:00:00* Test Item Value Reference Range Interpretation Comme nts CHOLESTEROL (test code = 2210) 151 MG/DL TRIGLYCERIDES (test code = 2232) 101 MG/DL HDL CHOLESTEROL (test code = 2220) 52 MG/DL CALC LDL CHOL (test code = 2237) 79 MG/DL RISK RATIO LDL/HDL (test cod e = 2238) 1.52 RATIO BASIC METABOLIC [id number] 00:00:00* Test Item Value Reference Range Interpretation Comme nts GLUCOSE (test code = 2217) 96 MG/DL BUN (test code = 2208) 9 MG/DL CREATININE (test code = 2214) 0.45 MG/DL eGFR AMER. (test code = 95974) (NOTE) ML/MIN/1.73 eGFR NON- AMER. (test code = 30892) NO CALC ML/MIN/1.73 SODIUM (test code = 2231) 142 MEQ/L POTASSIUM (test code = 2228) 4.1 MEQ/L CHLORIDE (test code = 2215) 103 MEQ/L CARBON DIOXIDE (test code = 2206) 26 MEQ/L CALCIUM (test code = 2209) 8.6 MG/DL LIPID [id number] 00:00:00* Test Item Value Reference Range Interpretation Comme nts CHOLESTEROL (test code = 2210) 151 MG/DL TRIGLYCERIDES (test code = 2232) 101 MG/DL HDL CHOLESTEROL (test code = 2220) 52 MG/DL CALC LDL CHOL (test code = 2237) 79 MG/DL RISK RATIO LDL/HDL (test cod e = 2238) 1.52 RATIO LIPID [id number] 00:00:00* Test Item Value Reference Range Interpretation Comme nts CHOLESTEROL (test code = 2210) 151 MG/DL TRIGLYCERIDES (test code = 2232) 101 MG/DL HDL CHOLESTEROL (test code = 2220) 52 MG/DL CALC LDL CHOL (test code = 2237) 79 MG/DL RISK RATIO LDL/HDL (test cod e = 2238) 1.52 RATIO BASIC METABOLIC [id number] 00:00:00* Test Item Value Reference Range Interpretation Comme nts GLUCOSE (test code = 2217) 96 MG/DL BUN (test code = 2208) 9 MG/DL CREATININE (test code = 2214) 0.45 MG/DL eGFR AMER. (test code = 75028) (NOTE) ML/MIN/1.73 eGFR NON- AMER. (test code = 54077) NO CALC ML/MIN/1.73 SODIUM (test code = 2231) 142 MEQ/L POTASSIUM (test code = 2228) 4.1 MEQ/L CHLORIDE (test code = 2215) 103 MEQ/L CARBON DIOXIDE (test code = 2206) 26 MEQ/L CALCIUM (test code = 2209) 8.6 MG/DL BASIC METABOLIC [id number] 00:00:00* Test Item Value Reference Range Interpretation Comme nts GLUCOSE (test code = 2217) 96 MG/DL BUN (test code = 2208) 9 MG/DL CREATININE (test code = 2214) 0.45 MG/DL eGFR AMER. (test code = 72648) (NOTE) ML/MIN/1.73 eGFR NON- AMER. (test code = 46022) NO CALC ML/MIN/1.73 SODIUM (test code = 2231) 142 MEQ/L POTASSIUM (test code = 2228) 4.1 MEQ/L CHLORIDE (test code = 2215) 103 MEQ/L CARBON DIOXIDE (test code = 2206) 26 MEQ/L CALCIUM (test code = 2209) 8.6 MG/DL LIPID [id number] 00:00:00* Test Item Value Reference Range Interpretation Comme nts CHOLESTEROL (test code = 2210) 151 MG/DL TRIGLYCERIDES (test code = 2232) 101 MG/DL HDL CHOLESTEROL (test code = 2220) 52 MG/DL CALC LDL CHOL (test code = 2237) 79 MG/DL RISK RATIO LDL/HDL (test cod e = 2238) 1.52 RATIO BASIC METABOLIC [id number] 00:00:00* Test Item Value Reference Range Interpretation Comme nts GLUCOSE (test code = 2217) 96 MG/DL BUN (test code = 2208) 9 MG/DL CREATININE (test code = 2214) 0.45 MG/DL eGFR AMER. (test code = 66091) (NOTE) ML/MIN/1.73 eGFR NON- AMER. (test code = 90255) NO CALC ML/MIN/1.73 SODIUM (test code = 2231) 142 MEQ/L POTASSIUM (test code = 2228) 4.1 MEQ/L CHLORIDE (test code = 2215) 103 MEQ/L CARBON DIOXIDE (test code = 2206) 26 MEQ/L CALCIUM (test code = 2209) 8.6 MG/DL LIPID [id number] 00:00:00* Test Item Value Reference Range Interpretation Comme nts CHOLESTEROL (test code = 2210) 151 MG/DL TRIGLYCERIDES (test code = 2232) 101 MG/DL HDL CHOLESTEROL (test code = 2220) 52 MG/DL CALC LDL CHOL (test code = 2237) 79 MG/DL RISK RATIO LDL/HDL (test cod e = 2238) 1.52 RATIO LIPID [id number] 00:00:00* Test Item Value Reference Range Interpretation Comme nts CHOLESTEROL (test code = 2210) 151 MG/DL TRIGLYCERIDES (test code = 2232) 101 MG/DL HDL CHOLESTEROL (test code = 2220) 52 MG/DL CALC LDL CHOL (test code = 2237) 79 MG/DL RISK RATIO LDL/HDL (test cod e = 2238) 1.52 RATIO BASIC METABOLIC [id number] 00:00:00* Test Item Value Reference Range Interpretation Comme nts GLUCOSE (test code = 2217) 96 MG/DL BUN (test code = 2208) 9 MG/DL CREATININE (test code = 2214) 0.45 MG/DL eGFR AMER. (test code = 36424) (NOTE) ML/MIN/1.73 eGFR NON- AMER. (test code = 07729) NO CALC ML/MIN/1.73 SODIUM (test code = 2231) 142 MEQ/L POTASSIUM (test code = 2228) 4.1 MEQ/L CHLORIDE (test code = 2215) 103 MEQ/L CARBON DIOXIDE (test code = 2206) 26 MEQ/L CALCIUM (test code = 2209) 8.6 MG/DL BASIC METABOLIC [id number] 00:00:00* Test Item Value Reference Range Interpretation Comme nts GLUCOSE (test code = 2217) 96 MG/DL BUN (test code = 2208) 9 MG/DL CREATININE (test code = 2214) 0.45 MG/DL eGFR AMER. (test code = 26683) (NOTE) ML/MIN/1.73 eGFR NON- AMER. (test code = 03577) NO CALC ML/MIN/1.73 SODIUM (test code = 2231) 142 MEQ/L POTASSIUM (test code = 2228) 4.1 MEQ/L CHLORIDE (test code = 2215) 103 MEQ/L CARBON DIOXIDE (test code = 2206) 26 MEQ/L CALCIUM (test code = 2209) 8.6 MG/DL
--- NOTE | 2024-01-20 00:49 | EDPHYS ---
Physician Documentation [facility] Name: Altagracia Yu Age: 18 yrs Sex: Female : 2005 Arrival Date: 01/19/2024 Time: 23:51 Bed Waiting Private MD: ED Physician Neil Sagastume HPI: 01/19 00:45 This 18 yrs old Female presents to ER via Unassigned with complaints of Toothache - cp 12wks preg. 00:45 The patient presents with pain. The problem is located in the upper jaw. Onset: The cp symptoms/episode began/occurred 1 week(s) ago. Duration: The symptoms are continuous, and are steadily getting worse. Associated signs and symptoms: The patient has no apparent associated signs or symptoms. 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 - Infectious Disease History:: Denies. - Social history:: Smoking status: Reported history of juuling and/or vaping. ROS: 00:45 Constitutional: Negative for body aches, chills, fever, cp 00:45 ENT: Positive for dental pain, 00:45 Abdomen/GI: Negative for nausea and vomiting, 00:45 : Negative for vaginal bleeding, 00:45 All other systems are negative, Exam: 00:46 Head/Face: Normocephalic, atraumatic. cp 00:46 Constitutional: The patient appears in no acute distress, alert, awake, non-toxic, well developed, well nourished, obese, 00:46 ENT: External ear(s): are unremarkable, Nose: is normal, Mouth: Lips: moist, Oral mucosa: moist, Gums: reddened, abscess, is not appreciated, Posterior pharynx: Airway: no evidence of obstruction, patent, swelling, is not appreciated, Dental exam: abscess, is not appreciated, dental caries, that is moderate, diffusely, gum swelling, that is mild, missing teeth, pain, that is moderate, specifically in the upper left lateral incisor (#10), Voice: is normal, 00:46 Neck: Lymph nodes: no appreciated lymphadenopathy, Vital Signs: 01:03 Pulse 82; Resp 16; Temp 98.2(O); Pulse Ox 100% on R/A; Weight 99.79 kg; Height 5 ft. 5 ss in. ; 01:03 BP 130 / 79; ss 01:03 Body Mass Index 36.61 (99.79 kg, 165.1 cm) ss MDM: 00:48 Patient medically screened. cp 00:48 Data reviewed: vital signs, nurses notes, and as a result, I will discharge patient. cp 00:48 Differential diagnosis: dental caries, dental abscess, pericoronitis, cp gingivostomatitis. Counseling: I had a detailed discussion with the patient and/or guardian regarding the historical points, exam findings, and any diagnostic results supporting the discharge/admit diagnosis, to return to the emergency department if symptoms worsen or persist or if there are any questions or concerns that arise at home. Administered Medications: 01:14 Not Given (Other Intervention Used): amoxicillin-onuovvirvlp473 mg PO once ss 01:15 Drug: Acetaminophen PO 1000 mg PO once Route: PO; ss 01:15 Follow up: Response: Medication administered at discharge. ss 01:15 Drug: Clindamycin PO 300 mg PO once Route: PO; ss 01:15 Follow up: Response: Medication administered at discharge. Disposition: 01:41 Co-signature as Attending Physician, Neil Sagastume MD I reviewed the patient's care rt provided by the Advanced Practice Provider and agree with the diagnosis and treatment plan. Disposition Summary: 01/20/24 00:48 Discharge Ordered Notes: Location: Home cp Problem: new cp Symptoms: have improved cp Condition: Stable cp Diagnosis - Disorder of teeth and supporting structures, unspecified cp Followup: cp - With: Private Physician - When: 2 - 3 days - Reason: Worsening of condition Discharge Instructions: - Discharge Summary Sheet cp - Dental Pain cp Forms: - Medication Reconciliation Form cp - Antibiotic Education cp - Prescription Opioid Use cp - Patient Portal Instructions cp - Leadership Thank You Letter cp Prescriptions: - Clindamycin HCl 300 mg Oral Capsule - take 1 capsule ORAL route every 6 hours for 10 days; 40 capsule; Refills: 0, cp Product Selection Permitted Signatures: Altagracia Lal RN RN ss Collins Whittaker PA PA cp Neil Sagastume MD MD rt
[2024-01-20] MEDS ORDERED: ACETAMINOPHEN 500 MG TAB ONE (01:07)
[2024-01-20] MEDS ORDERED: AMOX/K CLAV 875 MG TAB ONE (01:08)
--- NOTE | 2024-01-20 01:17 | ER ---
Nurse's Notes [facility] Name: Altagracia Yu Age: 18 yrs Sex: Female : 2005 Arrival Date: 01/19/2024 Time: 23:51 Bed Waiting Private MD: Diagnosis: Disorder of teeth and supporting structures, unspecified Presentation: 01/19 01:03 Chief complaint: Patient states: dental pain x 1 week. Denies fever. Coronavirus ss screen: Client denies travel out of the [place] in the last 14 days. Ebola Screen: Patient denies exposure to infectious person. Patient denies travel to an Ebola-affected area in the 21 days before illness onset. Initial Sepsis Screen: Does the patient meet any 2 criteria? No. Patient's initial sepsis screen is negative. Does the patient have a suspected source of infection? No. Patient's initial sepsis screen is negative. Risk Assessment: Do you want to hurt yourself or someone else? Patient reports no desire to harm self or others. Onset of symptoms was January 11, 2024. 01:03 Method Of Arrival: Ambulatory ss 01:03 Acuity: KARMEN 4 ss Triage Assessment: 01:04 General: Appears uncomfortable, Behavior is calm, cooperative, quiet. Pain: Complains ss of pain in upper left lateral incisor (#10) Pain currently is 10 out of 10 on a pain scale. Neuro: Level of Consciousness is awake, alert, obeys commands, Oriented to person, place, time, situation. Respiratory: Airway is patent Respiratory effort is even, unlabored, Respiratory pattern is regular, symmetrical. Derm: Skin is pink, warm \T\ dry. normal. 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 - Infectious Disease History:: Denies. - Social history:: Smoking status: Reported history of juuling and/or vaping. Screenin:05 [facility] ED Fall Risk Assessment (Adult) History of falling in the last 3 months, ss including since admission No falls in past 3 months (0 pts) Confusion or Disorientation No (0 pts) Intoxicated or Sedated No (0 pts) Impaired Gait No (0 pts) Mobility Assist Device Used No (0 pt) Altered Elimination No (0 pt) Score/Fall Risk Level 0 - 2 = Low Risk Maintained a safe environment. Abuse screen: Denies threats or abuse. Denies injuries from another. Nutritional screening: No deficits noted. Tuberculosis screening: Never had TB. Assessment: 01:05 Reassessment: SEE TRIAGE ASSESSMENT. Vital Signs: 01:03 Pulse 82; Resp 16; Temp 98.2(O); Pulse Ox 100% on R/A; Weight 99.79 kg; Height 5 ft. 5 ss in. ; 01:03 BP 130 / 79; ss 01:03 Body Mass Index 36.61 (99.79 kg, 165.1 cm) ED Course: 01/18 23:53 Patient arrived in ED. ra3 23:54 Collins Whittaker PA is PHCP. judit 23:54 Neil Sagastume MD is Attending Physician. 06 01:04 Triage completed. 01:04 Arm band placed on right wrist. 01:05 Patient has correct armband on for positive identification. Placed in gown. Bed in low ss position. 01:05 No provider procedures requiring assistance completed. Patient did not have IV access ss during this emergency room visit. Administered Medications: 01:14 Not Given (Other Intervention Used): amoxicillin-kovxdzjwziq306 mg PO once ss 01:15 Drug: Acetaminophen PO 1000 mg PO once Route: PO; ss 01:15 Follow up: Response: Medication administered at discharge. 01:15 Drug: Clindamycin PO 300 mg PO once Route: PO; ss 01:15 Follow up: Response: Medication administered at discharge. Medication: 01:05 VIS not applicable for this client. Outcome: 00:48 Discharge ordered by . cp 01:16 Discharged to home ambulatory, with significant other, 01:16 Condition: good 01:16 Discharge instructions given to patient, significant other, Instructed on discharge instructions, follow up and referral plans. medication usage, Demonstrated understanding of instructions, follow-up care, medications, Prescriptions given X 1, 01:17 Patient left the ED. Signatures: Altagracia Lal RN RN Collins Whittaker PA PA cp Alva, Ruby ra3
[2024-01-20 01:59] VITALS: BP 130/79; TEMP 98.2; O2SAT 100
== END 2024-01-20 01:17 | disposition home or self-care (01) ==
LOC: ER 23:51
DX: O99.611 Diseases of the digestive system complicating pregnancy, first trimester (principal); K08.89 Other specified disorders of teeth and supporting structures; Z3A.00 Weeks of gestation of pregnancy not specified
CPT/HCPCS: 99283

== ENCOUNTER 2024-02-09 21:51 | Emergency (ER) | payer OTHER ==
--- OUTSIDE RECORDS SUMMARY | 2024-02-09 22:01 | XMS REPORT | Continuity of Care Document ---
Author Name Unknown Address [address] [facility] [address] [place] [address] [facility] thconnect Address [address] [facility] [place] [address] Care Team Providers Care Data Analytics Specialist Name Role Phone LATOYA MOJICA Primary Care Physician Unavailab KHANH Harmon Attending Clinician Unavail able Mamadou MICHAELS Attending Clinician Unavailable Mamadou Braswell Attending Clinician [phone] ROSY SANTOS Attending Clinician UnavailANSELMO Soler Attending Clinician Unavailable Guerrero Whitaker MD Attending Clinician [phone] Doctor Unassigned, Dardanelle Attending Clinician U changailArlene Alexandra Attending Clinician Unavailabl Heaven Sosa Attending Clinician [phone] Yenni Cervantes Attending Clinician Unavailable Hannah Sanchez Attending Clinician Yina Kimble Attending Clinician Unavailable Adali Mcpherson Attending Clinician [phone] Responsible Provider, Not Yet Assigned Attending Clinician Unavailable Yenni Gross Attending Clinician Unavailable Dungeon Master, Health Advocate Student Attending Clinic louise Unavailable Shayy Rios Attending Clinician UnavailColette Mandujano Attending Clinician [phone] Tram Landaverde Attending Clinician Unavailable Polina Dobson Attending Clinician Unavailable JANNA BONILLA Attending Clinician Unavailable Janna Bonilla PA-C Attending Clinician GUILLERMINA GILL Attending Clinician Unavailable 1, [facility] Attending Clinician Unavailable GUERRERO WHITAKER Attending Clinician Unavailable Heaven Morrow Unavailable [phone] Adali Mcpherson Unavailable [phone] Colette Chowdary Unavailable [phone] Yenni Cervantes Unavailable Unavailable Payers Payer Name Policy Type Policy Number Effective Date Expirati on Date Source [facility] [id number] 2018 00:00:00 Problems Condition Name Condition Details Condition Category Status Onset Date Resolution Date Last Treatment Date Treating Clinician Comments Source Greater Than or Equal to 95th Percentile For Age Condition Active 10-14 00:00: 00 2019-10-15 09:09:50 Heaven Morrow [facility] Anemia in , third trimester Condition Active 10-11 00:00: 00 2019-10-11 11:20:23 dAali Mcpherson [facility] Supervisio n of other high risk pregnancie s, third trimester Condition Active 10-07 00:00: 00 2019-10-07 17:42:03 Colette Chowdary [facility] Supervisio n of high risk due to social problems, third trimester Condition Active 10-07 00:00: 00 2019-10-07 17:42:03 Colette Chowdary [facility] Round ligament pain Round ligament pain Disease Active 09-17 00:00: 00 [facility] 32 weeks gestation of 32 weeks gestation of Disease Active 2018-08 00:00: 00 [facility] 28 weeks gestation of 28 weeks gestation of Disease Active 2018-08 00:00: 00 [facility] Supervisio n of high risk in third trimester Supervisio n of high risk in third trimester Disease Active 2018-08 00:00: 00 [facility] Uterine size-date discrepanc y in third trimester Uterine size-date discrepanc y in third trimester Disease Active 2018-08 00:00: 00 [facility] Need for Tdap vaccinatio n Need for Tdap vaccinatio n Disease Active 2018-08 00:00: 00 [facility] History of Past Illness Condition Name Condition Details Condition Category Status Onset Date Resolution Date Last Treatment Date Treating Clinician Comments Source 36 Weeks Gestation of Condition Inactiv e 10-14 00:00: 00 2019-10-21 00:00:00 2019-10-15 09:09:50 Yenni Cervantestessie [facility] 35 Weeks Gestation of Condition Inactiv e 10-07 00:00: 00 2019-10-14 00:00:00 2019-10-07 17:42:03 Colette Chowdary Jakub [facility] Allergies, Adverse Reactions, Alerts Allergy Name Allergy Type Status Severity Reaction(s) Onset Date Inactive Date Treating Clinician Comments Source PENICILL IN DRUG INGREDI Active Hives 6 00:00: 00 [facility] Penicill in Propensi ty to adverse reaction s Active Hives 6 00:00: 00 [facility] Penicill ins - CLASS Propensi ty to adverse reaction to drug Active 7-19 00:00: 00 Penicill ins Propensi ty to adverse reaction to drug Active 3-21 00:00: 00 ASPIRIN DRUG INGREDI Active ITCHING 03-17 00:00: 00 [facility] Aspirin Propensi ty to adverse reaction s Active Swelling 03-17 00:00: 00 [facility] Social History Social Habit Start Date Stop Date Quantity Comments Source ASSERTION 2019-02-12 00:00:[address] [facility] SDOH Alcohol Std Drinks [facility] History SDOH Alcohol Binge [facility] Alcoholic beverage intake 2020-01-28 00:00:00 2020-01-28 00:00:00 Lifetime non-drinker (finding) [facility] History of Social function 2020-01-28 00:00:00 2020-01-28 00:00:[address] [facility] Have you traveled to any zika virus infected areas? 2019-10-14 13:44:33 2019-10-14 13:44:33 No [facility] social history E&M 2019-10-07 14:07:37 2019-10-07 14:07:37 not currently with familyliving with kali's familystates her own parents not involved with this . [facility] cat exposure during 2019-10-07 14:07:37 2019-10-07 14:07:37 no [facility] Alcohol intake 2019-09-17 00:00:00 2019-09-17 00:00:[address] [facility] Tobacco use and exposure 2019-03-17 00:00:00 2019-03-17 00:00:00 Former smokeless tobacco user [facility] History SDOH Alcohol Frequency 2019-03-17 00:00:00 2019-03-17 00:00:[address] [facility] History of tobacco use 2019-03-07 00:00:[address] [facility] Sex assigned at 2003 00:00:00 2003 00:00:[address] [facility] Smoking Status Start Date Stop Date Source Never smoked tobacco [facility] Medications Ordered Medication Name Filled Medication Name Start Date Stop Date Current Medication? Ordering Clinician Indication Dosage Frequency Signature (SIG) Comments Components Source Dose Unknown 05-05 00:00: 00 No TAKE 1 TABLET BY MOUTH EVERY DAY 05-05 00:00: 00 No TAKE 1 TABLET BY MOUTH EVERY DAY 04-04 00:00: 00 No 10 TAKE 1 TABLET BY MOUTH EVERY DAY 04-04 00:00: 00 No 10 Dose Unknown 03-29 00:00: 00 No 375 Dose Unknown 03-29 00:00: 00 No 375 Dose Unknown 2022-0 8-12 00:00: 00 No 375 TAKE 1 CAPSULE BY MOUTH 3 TIMES A DAY NEEDED 2022-0 8-10 00:00: 00 No 25 TAKE 1 CAPSULE BY MOUTH 3 TIMES A DAY NEEDED 2-0 8-10 00:00: 00 No 25 TAKE 1 CAPSULE BY MOUTH 3 TIMES A DAY NEEDED 2-0 8-10 00:00: 00 No 25 Dose Unknown 2-0 8-08 00:00: 00 No 500 Dose Unknown 2-0 8-08 00:00: 00 No 300 Dose Unknown 2-0 8-08 00:00: 00 No 500 Dose Unknown 2-0 8-08 00:00: 00 No 300 Dose Unknown 2021-0 8- 00:00: 00 No 500 Dose Unknown 2021-0 8- 00:00: 00 No 300 TAKE 1 TABLET [...] 2-0 8-06 00:00: 00 No Dose Unknown 2021-0 8-05 00:00: 00 No 375 TAKE 1 CAPSULE BY MOUTH 3 TIMES A DAY NEEDED 2-0 8-05 00:00: 00 No 25 Dose Unknown 2-0 8-05 00:00: 00 No 375 TAKE 1 CAPSULE BY MOUTH 3 TIMES A DAY NEEDED 2-0 8-05 00:00: 00 No 25 Dose Unknown [...] 7-20 00:00: 00 No 1mg Dose Unknown 2021-0 7-20 00:00: 00 No 375 &lt 2022-0 7-20 00:00: 00 No 500 TAKE 1 CAPSULE BY MOUTH EVERY 6 HOURS FOR 10 DAYS 2022-0 7-20 00:00: 00 No 300 citalopram 10 mg tablet 2021-0 7-20 00:00: 00 No 1mg Dose Unknown 2021-0 20 00:00: 00 No 375 &lt 2022-0 7-20 00:00: 00 No 500 TAKE 1 CAPSULE BY MOUTH EVERY 6 HOURS FOR 10 DAYS 2021-0 20 00:00: 00 No 300 citalopram 10 mg tablet 2021-0 20 00:00: 00 No 1mg Dose Unknown 2021-0 20 00:00: 00 No 375 &lt 2022-0 7-20 00:00: 00 No 500 TAKE 1 CAPSULE BY MOUTH EVERY 6 HOURS FOR 10 DAYS 2021-0 20 00:00: 00 No 300 citalopram 10 mg tablet 2021-0 19 00:00: 00 No 1mg citalopram 10 mg tablet 2-0 19 00:00: 00 No 1mg citalopram 10 mg tablet 2-0 19 00:00: 00 No 1mg citalopram 10 mg tablet 2021-0 19 00:00: 00 No 1mg TAKE 1 CAPSULE BY MOUTH EVERY DAY 2021-0 7-15 00:00: 00 No 375 &lt 2022-0 7-15 00:00: 00 No TAKE 1 CAPSULE BY MOUTH EVERY 6 HOURS FOR 10 DAYS 2021-0 7-15 00:00: 00 No 300 TAKE 1 CAPSULE BY MOUTH EVERY DAY 2021-0 7-15 00:00: 00 No 375 &lt 2022-0 7-15 00:00: 00 No TAKE 1 CAPSULE BY MOUTH EVERY 6 HOURS FOR 10 DAYS 2021-0 7-15 00:00: 00 No 300 TAKE 1 CAPSULE BY MOUTH EVERY DAY 2021-0 7-15 00:00: 00 No 375 &lt 2022-0 [...] 00 No Nexplanon 68 mg subdermal implant 2-0 6-14 00:00: 00 No 1mg &lt 2022-0 6-14 00:00: 00 No &lt 2022-0 6-14 00:00: 00 No TAKE 1 TABLET BY MOUTH EVERY 6 HOURS NEEDED FOR PAIN 2-0 6-14 00:00: 00 No Nexplanon 68 mg [...] 00:00: 00 No cephalexin 500 mg tablet 2022-0 2-23 00:00: 00 No 1mg cephalexin 500 mg tablet 10-10 00:00: 00 No 1mg cephalexin 500 mg tablet 10-10 00:00: 00 No 1mg cephalexin 500 mg tablet 10-10 00:00: 00 No 1mg cephalexin 500 mg tablet 10-10 00:00: 00 No 1mg doxycycline monohydrate 100 mg capsule 2020-08 00:00: 00 No 1mg doxycycline monohydrate 100 mg capsule 2020-08 00:00: 00 No 1mg doxycycline monohydrate 100 mg capsule 2020-08 00:00: 00 No 1mg doxycycline monohydrate 100 mg capsule 2020-08 00:00: 00 No 1mg doxycycline monohydrate 100 mg capsule 2020-08 00:00: 00 No 1mg medroxyprog esterone 150 [...] 03-13 00:00: 00 No 1mg/mL Wellbutrin XL 300 mg 24 hr tablet, [...] extended release 2019-08 00:00: 00 No 1mg fluoxetine 20 mg tablet 2019-08 00:00: 00 No mg fluoxetine 20 mg tablet 2019-08 00:00: 00 No mg fluoxetine 20 mg tablet 2019-08 00:00: 00 No mg fluoxetine 20 mg tablet 2019-08 00:00: 00 No mg fluoxetine 20 mg tablet 2019-08 00:00: 00 No mg FERRALET 90 (FE CBN-FE GLUC-FA-B12 -C-DSS) 90-1 MG TABS 2020-0 2-24 00:00: 00 Yes Adali Mcpherson Take 1 Tablet Once a Day [facility] VITAFOL ULTRA (PRENAT-FE POLY-METHFO L-FA-DHA) 29-0.6-0.4- 200 MG CAPS 20 00:00: 00 Yes Colette Manning 1{Capsu le} 1xD take 1 capsule by mouth daily [facility] BLOOD PRESSURE (BLOOD PRESSURE MONITORING) KIT 10-07 00:00: 00 Yes Colette Manning take twice daily [facility] PNV 67-iron ps-folate no.1-dha (VITAFOL ULTRA) 29 mg iron- 1 mg-200 mg Cap 03-20 00:00: 00 Yes [id number] Take 1 TAB-CAP/M2 by mouth daily. [facility] PNV 67-iron ps-folate no.1-dha (VITAFOL ULTRA) 29 mg iron- 1 mg-200 mg Cap 03-20 00:00: 00 Yes [id number] Take 1 TAB-CAP/M2 by mouth daily. [facility] cetirizine 5 mg tablet 12-22 00:00: [...] norgestimat e-ethinyl estradiol 0.18 mg/0.215mg/ 0.25mg-35 mcg(28)tabl 09-10 00:00: 00 No 1mg-35 mcg (28) norgestimat e-ethinyl estradiol 0.18 mg/0.215mg/ 0.25mg-35 mcg(28)tabl 09-10 00:00: 00 No 1mg-35 mcg (28) norgestimat e-ethinyl estradiol 0.18 mg/0.215mg/ 0.25mg-35 mcg(28)tabl et 09-10 00:00: 00 No 1mg-35 mcg (28) norgestimat e-ethinyl estradiol 0.18 mg/0.215mg/ 0.25mg-35 mcg(28)tabl et 09-10 00:00: 00 No 1mg-35 mcg (28) norgestimat e-ethinyl estradiol 0.18 mg/0.215mg/ 0.25mg-35 mcg(28)tabl et 09-10 00:00: 00 No 1mg-35 mcg (28) No known medications No Un adrian [facility] No known medications No Un adrian [facility] Immunizations Ordered Immunization Name Filled Immunization Name Date Status Comments Source TDAP (ADACEL) VACCINE 2019-08-17 00:00:[address] [facility] TDAP (ADACEL) VACCINE 2019-08-17 00:00:[address] [facility] TDAP (ADACEL) VACCINE 2019-08-17 00:00:[address] [facility] TDAP (ADACEL) VACCINE 2019-08-17 00:00:[address] [facility] Influenza Virus Vaccine Quad .5 mL IM 6+ MO 2019-06-14 00:00:[address] [facility] Influenza Virus Vaccine Quad .5 mL IM 6+ MO 2019-06-14 00:00:[address] [facility] Influenza Virus Vaccine Quad .5 mL IM 6+ MO 2019-06-14 00:00:[address] [facility] Influenza Virus Vaccine Quad .5 mL IM 6+ MO 2019-06-14 00:00:[address] [facility] HPV9 2018-12-11 00:00:00 Completed Hep A, ped/adol, 2 dose 2018-12-11 00:00:00 Completed HPV9 2018-12-11 00:00:00 Completed Hep A, ped/adol, 2 dose 2018-12-11 00:00:00 Completed HPV9 2018-12-11 00:00:00 Completed Hep A, ped/adol, 2 dose 2018-12-11 00:00:00 Completed HPV9 2018-12-11 00:00:00 Completed Hep A, ped/adol, 2 dose 2018-12-11 00:00:00 Completed HPV9 2018-12-11 00:00:00 Completed Hep A, ped/adol, 2 dose 2018-12-11 00:00:00 Completed HPV9 2018-12-11 00:00:00 Completed Hep A, ped/adol, 2 dose 2018-12-11 00:00:00 Completed HPV9 2018-12-11 00:00:00 Completed Hep A, ped/adol, 2 dose 2018-12-11 00:00:00 Completed HPV9 2018-12-11 00:00:00 Completed Hep A, ped/adol, 2 dose 2018-12-11 00:00:00 Completed HPV, quadrivalent 2017-10-01 00:00:00 Completed HPV, quadrivalent 2017-10-01 00:00:00 Completed HPV, quadrivalent 2017-10-01 00:00:00 Completed HPV, quadrivalent 2017-10-01 00:00:00 Completed HPV, quadrivalent 2017-10-01 00:00:00 Completed HPV, quadrivalent 2017-10-01 00:00:00 Completed HPV, quadrivalent 2017-10-01 00:00:00 Completed HPV, quadrivalent 2017-10-01 00:00:00 Completed Hep A, ped/adol, 2 dose 2017 00:00:00 Completed Influenza, seasonal, inj 2017 00:00:00 Completed meningococcal MCV4P 2017 00:00:00 Completed Tdap 2017 00:00:00 Completed Hep A, ped/adol, 2 dose 2017 00:00:00 Completed Influenza, seasonal, inj 2017 00:00:00 Completed meningococcal MCV4P 2017 00:00:00 Completed Tdap 2017 00:00:00 Completed Hep A, ped/adol, 2 dose 2017 00:00:00 Completed Influenza, seasonal, inj 2017 00:00:00 Completed meningococcal MCV4P 2017 00:00:00 Completed Tdap 2017 00:00:00 Completed Hep A, ped/adol, 2 dose 2017 00:00:00 Completed Influenza, seasonal, inj 2017 00:00:00 Completed meningococcal MCV4P 2017 00:00:00 Completed Tdap 2017 00:00:00 Completed Hep A, ped/adol, 2 dose 2017 00:00:00 Completed Influenza, seasonal, inj 2017 00:00:00 Completed meningococcal MCV4P 2017 00:00:00 Completed Tdap 2017 00:00:00 Completed Hep A, ped/adol, 2 dose 2017 00:00:00 Completed Influenza, seasonal, inj 2017 00:00:00 Completed meningococcal MCV4P 2017 00:00:00 Completed Tdap 2017 00:00:00 Completed Hep A, ped/adol, 2 dose 2017 00:00:00 Completed Influenza, seasonal, inj 2017 00:00:00 Completed meningococcal MCV4P 2017 00:00:00 Completed Tdap 2017 00:00:00 Completed Hep A, ped/adol, 2 dose 2017 00:00:00 Completed Influenza, seasonal, inj 2017 00:00:00 Completed meningococcal MCV4P 2017 00:00:00 Completed Tdap 2017 00:00:00 Completed DTaP 2008-01-04 00:00:00 Completed MMR 2008-01-04 00:00:00 Completed IPV 2008-01-04 00:00:00 Completed varicella 2008-01-04 00:00:00 Completed DTaP 2008-01-04 00:00:00 Completed MMR 2008-01-04 00:00:00 Completed IPV 2008-01-04 00:00:00 Completed varicella 2008-01-04 00:00:00 Completed DTaP 2008-01-04 00:00:00 Completed MMR 2008-01-04 00:00:00 Completed IPV 2008-01-04 00:00:00 Completed varicella 2008-01-04 00:00:00 Completed DTaP 2008-01-04 00:00:00 Completed MMR 2008-01-04 00:00:00 Completed IPV 2008-01-04 00:00:00 Completed varicella 2008-01-04 00:00:00 Completed DTaP 2008-01-04 00:00:00 Completed MMR 2008-01-04 00:00:00 Completed IPV 2008-01-04 00:00:00 Completed varicella 2008-01-04 00:00:00 Completed DTaP 2008-01-04 00:00:00 Completed DTaP 2008-01-04 00:00:00 Completed MMR 2008-01-04 00:00:00 Completed IPV 2008-01-04 00:00:00 Completed varicella 2008-01-04 00:00:00 Completed MMR 2008-01-04 00:00:00 Completed IPV 2008-01-04 00:00:00 Completed varicella 2008-01-04 00:00:00 Completed DTaP 2008-01-04 00:00:00 Completed MMR 2008-01-04 00:00:00 Completed IPV 2008-01-04 00:00:00 Completed varicella 2008-01-04 00:00:00 Completed varicella 2007-03-12 00:00:00 Completed varicella 2007-03-12 00:00:00 Completed varicella 2007-03-12 00:00:00 Completed varicella 2007-03-12 00:00:00 Completed varicella 2007-03-12 00:00:00 Completed varicella 2007-03-12 00:00:00 Completed varicella 2007-03-12 00:00:00 Completed varicella 2007-03-12 00:00:00 Completed Influenza, seasonal, inj 2004-07-05 00:00:00 Completed Influenza, seasonal, inj 2004-07-05 00:00:00 Completed Influenza, seasonal, inj 2004-07-05 00:00:00 Completed Influenza, seasonal, inj 2004-07-05 00:00:00 Completed Influenza, seasonal, inj 2004-07-05 00:00:00 Completed Influenza, seasonal, inj 2004-07-05 00:00:00 Completed Influenza, seasonal, inj 2004-07-05 00:00:00 Completed Influenza, seasonal, inj 2004-07-05 00:00:00 Completed Hib (PRP-OMP) 2004-06-06 00:00:00 Completed MMR 2004-06-06 00:00:00 Completed Hib (PRP-OMP) 2004-06-06 00:00:00 Completed MMR 2004-06-06 00:00:00 Completed Hib (PRP-OMP) 2004-06-06 00:00:00 Completed MMR 2004-06-06 00:00:00 Completed Hib (PRP-OMP) 2004-06-06 00:00:00 Completed MMR 2004-06-06 00:00:00 Completed Hib (PRP-OMP) 2004-06-06 00:00:00 Completed MMR 2004-06-06 00:00:00 Completed Hib (PRP-OMP) 2004-06-06 00:00:00 Completed MMR 2004-06-06 00:00:00 Completed Hib (PRP-OMP) 2004-06-06 00:00:00 Completed MMR 2004-06-06 00:00:00 Completed Hib (PRP-OMP) 2004-06-06 00:00:00 Completed MMR 2004-06-06 00:00:00 Completed DTaP 2003 00:00:00 Completed Hep B, adolescent or ped 2003 00:00:00 Completed Hib (PRP-OMP) 2003 00:00:00 Completed Pneumococcal conjugate P 2003 00:00:00 Completed IPV 2003 00:00:00 Completed DTaP 2003 00:00:00 Completed Hep B, adolescent or ped 2003 00:00:00 Completed Hib (PRP-OMP) 2003 00:00:00 Completed Pneumococcal conjugate P 2003 00:00:00 Completed IPV 2003 00:00:00 Completed DTaP 2003 00:00:00 Completed Hep B, adolescent or ped 2003 00:00:00 Completed Hib (PRP-OMP) 2003 00:00:00 Completed Pneumococcal conjugate P 2003 00:00:00 Completed IPV 2003 00:00:00 Completed DTaP 2003 00:00:00 Completed Hep B, adolescent or ped 2003 00:00:00 Completed Hib (PRP-OMP) 2003 00:00:00 Completed Pneumococcal conjugate P 2003 00:00:00 Completed IPV 2003 00:00:00 Completed DTaP 2003 00:00:00 Completed Hep B, adolescent or ped 2003 00:00:00 Completed Hib (PRP-OMP) 2003 00:00:00 Completed Pneumococcal conjugate P 2003 00:00:00 Completed IPV 2003 00:00:00 Completed DTaP 2003 00:00:00 Completed Hep B, adolescent or ped 2003 00:00:00 Completed Hib (PRP-OMP) 2003 00:00:00 Completed Pneumococcal conjugate P 2003 00:00:00 Completed IPV 2003 00:00:00 Completed DTaP 2003 00:00:00 Completed Hep B, adolescent or ped 2003 00:00:00 Completed Hib (PRP-OMP) 2003 00:00:00 Completed Pneumococcal conjugate P 2003 00:00:00 Completed IPV 2003 00:00:00 Completed DTaP 2003 00:00:00 Completed Hep B, adolescent or ped 2003 00:00:00 Completed Hib (PRP-OMP) 2003 00:00:00 Completed Pneumococcal conjugate P 2003 00:00:00 Completed IPV 2003 00:00:00 Completed DTaP 2003 00:00:00 Completed Hep B, adolescent or ped 2003 00:00:00 Completed Hib (PRP-OMP) 2003 00:00:00 Completed Pneumococcal conjugate P 2003 00:00:00 Completed IPV 2003 00:00:00 Completed DTaP 2003 00:00:00 Completed Hep B, adolescent or ped 2003 00:00:00 Completed Hib (PRP-OMP) 2003 00:00:00 Completed Pneumococcal conjugate P 2003 00:00:00 Completed IPV 2003 00:00:00 Completed DTaP 2003 00:00:00 Completed Hep B, adolescent or ped 2003 00:00:00 Completed Hib (PRP-OMP) 2003 00:00:00 Completed Pneumococcal conjugate P 2003 00:00:00 Completed IPV 2003 00:00:00 Completed DTaP 2003 00:00:00 Completed Hep B, adolescent or ped 2003 00:00:00 Completed Hib (PRP-OMP) 2003 00:00:00 Completed Pneumococcal conjugate P 2003 00:00:00 Completed IPV 2003 00:00:00 Completed DTaP 2003 00:00:00 Completed Hep B, adolescent or ped 2003 00:00:00 Completed Hib (PRP-OMP) 2003 00:00:00 Completed Pneumococcal conjugate P 2003 00:00:00 Completed IPV 2003 00:00:00 Completed DTaP 2003 00:00:00 Completed Hep B, adolescent or ped 2003 00:00:00 Completed Hib (PRP-OMP) 2003 00:00:00 Completed Pneumococcal conjugate P 2003 00:00:00 Completed IPV 2003 00:00:00 Completed DTaP 2003 00:00:00 Completed Hep B, adolescent or ped 2003 00:00:00 Completed Hib (PRP-OMP) 2003 00:00:00 Completed Pneumococcal conjugate P 2003 00:00:00 Completed IPV 2003 00:00:00 Completed DTaP 2003 00:00:00 Completed Hep B, adolescent or ped 2003 00:00:00 Completed Hib (PRP-OMP) 2003 00:00:00 Completed Pneumococcal conjugate P 2003 00:00:00 Completed IPV 2003 00:00:00 Completed IPV 2003 00:00:00 Completed DTaP 2003 00:00:00 Completed Hep B, adolescent or ped 2003 00:00:00 Completed Hib (PRP-OMP) 2003 00:00:00 Completed Pneumococcal conjugate P 2003 00:00:00 Completed IPV 2003 00:00:00 Completed DTaP 2003 00:00:00 Completed Hep B, adolescent or ped 2003 00:00:00 Completed Hib (PRP-OMP) 2003 00:00:00 Completed Pneumococcal conjugate P 2003 00:00:00 Completed IPV 2003 00:00:00 Completed DTaP 2003 00:00:00 Completed Hep B, adolescent or ped 2003 00:00:00 Completed Hib (PRP-OMP) 2003 00:00:00 Completed Pneumococcal conjugate P 2003 00:00:00 Completed IPV 2003 00:00:00 Completed DTaP 2003 00:00:00 Completed Hep B, adolescent or ped 2003 00:00:00 Completed Hib (PRP-OMP) 2003 00:00:00 Completed DTaP 2003 00:00:00 Completed Hep B, adolescent or ped 2003 00:00:00 Completed Hib (PRP-OMP) 2003 00:00:00 Completed Pneumococcal conjugate P 2003 00:00:00 Completed Pneumococcal conjugate P 2003 00:00:00 Completed IPV 2003 00:00:00 Completed IPV 2003 00:00:00 Completed DTaP 2003 00:00:00 Completed Hep B, adolescent or ped 2003 00:00:00 Completed Hib (PRP-OMP) 2003 00:00:00 Completed Pneumococcal conjugate P 2003 00:00:00 Completed IPV 2003 00:00:00 Completed DTaP 2003 00:00:00 Completed Hep B, adolescent or ped 2003 00:00:00 Completed Hib (PRP-OMP) 2003 00:00:00 Completed Pneumococcal conjugate P 2003 00:00:00 Completed IPV 2003 00:00:00 Completed DTaP 2003 00:00:00 Completed Hep B, adolescent or ped 2003 00:00:00 Completed Hib (PRP-OMP) 2003 00:00:00 Completed Pneumococcal conjugate P 2003 00:00:00 Completed Hep B, adolescent or ped 2003 00:00:00 Completed Hep B, adolescent or ped 2003 00:00:00 Completed Hep B, adolescent or ped 2003 00:00:00 Completed Hep B, adolescent or ped 2003 00:00:00 Completed Hep B, adolescent or ped 2003 00:00:00 Completed Hep B, adolescent or ped 2003 00:00:00 Completed Hep B, adolescent or ped 2003 00:00:00 Completed Hep B, adolescent or ped 2003 00:00:00 Completed Influenza Virus Vaccine Quad .5 mL IM 6+ MO (FLUZONE/FLULAVAL/F LUARIX) Unknown Completed [facility] TDAP (ADACEL) VACCINE Unknown Completed [facility] Vital Signs Vital Name Observation Time Observation Value Comments S ource Systolic blood pressure 2024-02-08 03:23:00 143 mm[Hg] [facility] Diastolic blood pressure 2024-02-08 03:23:00 82 mm[Hg] [facility] Heart rate 2024-02-08 03:23:00 93 /min Unive [facility] Body temperature 2024-02-08 03:23:[address] [facility] Respiratory rate 2024-02-08 03:23:00 21 /min [facility] Body height 2024-02-08 03:23:00 165.1 cm [facility] Body weight 2024-02-08 03:23:00 106.641 kg [facility] BMI 2024-02-08 03:23:00 39.12 kg/m2 [facility] Oxygen saturation in Arterial blood by Pulse oximetry 2024-02-08 03:23:00 100 /min [facility] Systolic blood pressure 2019-08-31 23:06:00 93 mm[Hg] [facility] Diastolic blood pressure 2019-08-31 23:06:00 64 mm[Hg] [facility] Heart rate 2019-08-31 23:06:00 90 /min Unive [facility] Body temperature 2019-08-31 23:06:[address] [facility] Respiratory rate 2019-08-31 23:06:00 18 /min [facility] Body height 2019-08-31 23:06:00 160 cm [facility] Body weight 2019-08-31 23:06:00 101.606 kg [facility] BMI 2019-08-31 23:06:00 39.68 kg/m2 [facility] Systolic blood pressure 2019-04-14 19:00:00 117 mm[Hg] [facility] [facility] Diastolic blood pressure 2019-04-14 19:00:00 70 mm[Hg] [facility] Heart rate 2019-04-14 19:00:00 79 /min Unive [facility] Body temperature 2019-04-14 19:00:[address] [facility] Respiratory rate 2019-04-14 19:00:00 18 /min [facility] Body height 2019-04-14 19:00:00 160 cm [facility] Body weight 2019-04-14 19:00:00 87.544 kg [facility] BMI 2019-04-14 19:00:00 34.19 kg/m2 [facility] Systolic blood pressure 2019-03-17 14:24:00 112 mm[Hg] [facility] Diastolic blood pressure 2019-03-17 14:24:00 70 mm[Hg] [facility] Heart rate 2019-03-17 14:24:00 77 /[facility] 2019-03-17 14:24:[address] [facility] Respiratory rate 2019-03-17 14:24:00 18 /min [facility] Body height 2019-03-17 14:24:00 160 cm [facility] Body weight 2019-03-17 14:24:00 90.266 kg [facility] BMI 2019-03-17 14:24:00 35.25 kg/m2 [facility] BP Systolic 2022-05-07 17:13:00 117 mm[Hg] [...] blood pressure, diastolic 2019-10-14 13:44:33 84 mm[Hg] [facility] blood pressure, systolic 2019-10-14 13:44:33 125 mm[Hg] Replaced by [facility] pulse rate E&M 2019-10-14 13:44:33 87 /min L [facility] oxygen saturation, oximetry 2019-10-14 13:44:33 97 % Replaced by [facility] respiratory rate E&M 2019-10-14 13:44:33 20 /min [facility] temperature site 2019-10-14 13:44:33 oral [facility] temperature E&M 2019-10-14 13:44:33 98.3 [degF] [facility] weight E&M 2019-10-14 13:44:33 238.8 [lb_av] Le gacy [facility] height E&M 2019-10-14 13:44:33 63 [in_i] Legac y [facility] oxygen saturation, oximetry 2019-10-07 14:07:37 98 % Replaced by [facility] blood pressure, diastolic 2019-10-07 14:07:37 83 mm[Hg] Replaced by [facility] blood pressure, systolic 2019-10-07 14:07:37 130 mm[Hg] Replaced by [facility] pulse rate E&M 2019-10-07 14:07:37 91 /min L [facility] temperature E&M 2019-10-07 14:07:37 98.6 [degF] [facility] temperature site 2019-10-07 14:07:37 oral [facility] height E&M 2019-10-07 14:07:37 63 [in_i] Legac y [facility] weight E&M 2019-10-07 14:07:37 235 [lb_av] Lega [facility] Procedures Procedure Date / Time Performed Performing Clinician Source CONSENT/REFUSAL FOR DIAGNOSIS AND TREATMENT 2019-10-25 05:01:00 Doctor Unassigned, [place] [facility] Nutrition Counseling (Obese) 2019-10-14 14:28:44 Heaven Morrow [facility] Case Mgmt Visit, Non-Billable [id number] 2019-10-07 15:54:24 Yenni Gross [facility] Vaccines Ordered - Print Consent/Declination Forms 2019-10-07 15:46:26 Colette Chowdary [facility] POCT URINALYSIS W/O SPECIFIC GRAVITY 2019-08-31 00:00:[address] [facility] <14 WEEKS US LIMITED 2019-04-16 17:44:[address] [facility] CBC WITH DIFFERENTIAL 2019-04-14 21:36:00 Bry Guerrero Shannon m [facility] ASSIGNMENT OF BENEFITS 2019-04-14 20:00:31 Docto r Unassigned, [place] [facility] <14 WEEKS US LIMITED 2019-03-20 23:54:[address] [facility] TOTAL BETA HCG ASSAY 2019-03-17 15:19:[address] [facility] GC & CHLAMYDIA AMPLIFIED ASSAY 2019-03-17 14:53:[address] [facility] GALV ONLY - VAGINAL PATHOGENS BY DNA PROBE 2019-03-17 14:53:00 Guerrero Whitaker [facility] ADC / LCC - DRUG SCREEN TRIAGE 2019-03-17 14:53:[address] [facility] POCT TEST 2019-03-17 00:00:[address] [facility] POCT URINALYSIS W/O SPECIFIC GRAVITY 2019-03-17 00:00:[address] [facility] Plan of Care Planned Activity Planned Date Details Comments Source Goal Plan of Care Note [code = 67183-5] Goal Plan of Care Note [code = 55991-1] Goal Plan of Care Note [code = 74111-6] Goal Plan of Care Note [code = 23116-6] Goal Plan of Care Note [code = 99546-8] Goal Plan of Care Note [code = 10242-6] Goal Plan of Care Note [code = 62529-4] Goal Plan of Care Note [code = 18966-8] Goal Plan of Care Note [code = 13584-4] Goal Plan of Care Note [code = 66742-4] Goal Plan of Care Note [code = 60185-7] Goal Plan of Care Note [code = 77089-3] Goal Plan of Care Note [code = 09232-8] Goal Plan of Care Note [code = 69461-0] Goal Plan of Care Note [code = 61061-5] Goal Plan of Care Note [code = 68378-9] Goal Plan of Care Note [code = 27313-7] Goal Plan of Care Note [code = 66812-8] Goal Plan of Care Note [code = 49209-2] Goal Plan of Care Note [code = 12401-9] Goal Plan of Care Note [code = 46807-8] Goal Plan of Care Note [code = 51542-2] Goal Plan of Care Note [code = 31562-1] Goal Plan of Care Note [code = 15321-9] Goal Plan of Care Note [code = 86128-8] Goal Plan of Care Note [code = 03432-4] Goal Plan of Care Note [code = 19443-0] Goal Plan of Care Note [code = 68357-5] Goal Plan of Care Note [code = 39834-0] Goal Plan of Care Note [code = 24933-8] Goal Plan of Care Note [code = 07958-0] Goal Plan of Care Note [code = 46608-7] Goal Plan of Care Note [code = 51962-7] Goal Plan of Care Note [code = 90590-5] Goal Plan of Care Note [code = 45382-1] Goal Plan of Care Note [code = 03383-9] Goal Plan of Care Note [code = 50654-8] Goal Plan of Care Note [code = 35192-4] Goal Plan of Care Note [code = 17014-5] Goal Plan of Care Note [code = 85020-7] Goal Plan of Care Note [code = 80799-1] Goal Plan of Care Note [code = 16292-1] Goal Plan of Care Note [code = 98531-5] Goal Plan of Care Note [code = 75189-3] Goal Plan of Care Note [code = 69227-3] Goal Plan of Care Note [code = 58136-6] Goal Plan of Care Note [code = 13684-0] Goal Plan of Care Note [code = 80723-3] Goal Plan of Care Note [code = 42061-0] Goal Plan of Care Note [code = 35795-6] Goal Plan of Care Note [code = 69438-0] Goal Plan of Care Note [code = 42276-4] Goal Plan of Care Note [code = 64286-8] Goal Plan of Care Note [code = 15061-3] Goal Plan of Care Note [code = 53309-1] Goal Plan of Care Note [code = 05047-8] Goal Plan of Care Note [code = 25326-9] Goal Plan of Care Note [code = 24090-0] Goal Plan of Care Note [code = 11253-1] Goal Plan of Care Note [code = 80743-3] Goal Plan of Care Note [code = 47184-9] Goal Plan of Care Note [code = 11851-9] Goal Plan of Care Note [code = 56200-0] Goal Plan of Care Note [code = 28078-9] Goal Plan of Care Note [code = 93021-8] Goal Plan of Care Note [code = 29918-3] Goal Plan of Care Note [code = 00057-9] Goal Plan of Care Note [code = 77458-4] Goal Plan of Care Note [code = 20965-9] Goal Plan of Care Note [code = 47816-4] Goal Plan of Care Note [code = 93237-9] Goal Plan of Care Note [code = 54319-6] Goal Plan of Care Note [code = 62595-2] Goal Plan of Care Note [code = 05679-8] Goal Plan of Care Note [code = 33279-6] Goal Plan of Care Note [code = 21669-7] Goal Plan of Care Note [code = 20093-1] Goal Plan of Care Note [code = 41345-8] Goal Plan of Care Note [code = 63228-7] Goal Plan of Care Note [code = 75200-3] Goal Plan of Care Note [code = 65662-7] Goal Plan of Care Note [code = 82701-6] Goal Plan of Care Note [code = 14851-2] Goal Plan of Care Note [code = 07502-4] Goal Plan of Care Note [code = 45233-8] Goal Plan of Care Note [code = 91137-6] Goal Plan of Care Note [code = 92968-4] Goal Plan of Care Note [code = 08449-9] Goal Plan of Care Note [code = 61026-9] Goal Plan of Care Note [code = 09355-5] Goal Plan of Care Note [code = 50829-9] Goal Plan of Care Note [code = 86754-7] Goal Plan of Care Note [code = 15866-2] Goal Plan of Care Note [code = 41662-9] Goal Plan of Care Note [code = 74531-0] Goal Plan of Care Note [code = 65553-1] Goal Plan of Care Note [code = 29680-6] Goal Plan of Care Note [code = 47185-6] Goal Plan of Care Note [code = 16877-1] Goal Plan of Care Note [code = 07459-5] Goal Plan of Care Note [code = 50090-1] Goal Plan of Care Note [code = 82765-2] Goal Plan of Care Note [code = 50937-1] Goal Plan of Care Note [code = 12191-2] Goal Plan of Care Note [code = 18467-2] Goal Plan of Care Note [code = 38194-6] Goal Plan of Care Note [code = 46426-5] Goal Plan of Care Note [code = 41125-3] Goal Plan of Care Note [code = 11502-9] Goal Plan of Care Note [code = 25720-1] Goal Plan of Care Note [code = 46734-3] Goal Plan of Care Note [code = 93958-5] Goal Plan of Care Note [code = 70735-6] Goal Plan of Care Note [code = 91665-0] Goal Plan of Care Note [code = 11319-0] Goal Plan of Care Note [code = 87285-5] Goal Plan of Care Note [code = 28803-9] Goal Plan of Care Note [code = 72173-9] Goal Plan of Care Note [code = 76832-7] Goal Plan of Care Note [code = 90565-4] Goal Plan of Care Note [code = 51745-6] Goal Plan of Care Note [code = 54323-2] Goal Plan of Care Note [code = 62204-6] Goal Plan of Care Note [code = 27798-4] Goal Plan of Care Note [code = 81587-8] Goal Plan of Care Note [code = 99896-9] Goal Plan of Care Note [code = 82293-5] Goal Plan of Care Note [code = 69968-9] Goal Plan of Care Note [code = 33924-4] Goal Plan of Care Note [code = 25799-5] Goal Plan of Care Note [code = 64670-7] Goal Plan of Care Note [code = 97697-5] Goal Plan of Care Note [code = 98883-3] Goal Plan of Care Note [code = 58121-4] Goal Plan of Care Note [code = 80253-7] Goal Plan of Care Note [code = 89862-7] Goal Plan of Care Note [code = 52085-2] Goal Plan of Care Note [code = 06620-9] Goal Plan of Care Note [code = 05725-3] Goal Plan of Care Note [code = 03930-0] Goal Plan of Care Note [code = 28245-0] Goal Plan of Care Note [code = 77216-6] Goal Plan of Care Note [code = 37559-7] Goal Plan of Care Note [code = 33740-6] Goal Plan of Care Note [code = 39174-8] Goal Plan of Care Note [code = 74089-0] Goal Plan of Care Note [code = 38296-5] Goal Plan of Care Note [code = 33516-5] Goal Plan of Care Note [code = 82644-1] Goal Plan of Care Note [code = 96501-6] Goal Plan of Care Note [code = 35913-4] Goal Plan of Care Note [code = 57468-6] Goal Plan of Care Note [code = 99457-1] Goal Plan of Care Note [code = 25164-2] Goal Plan of Care Note [code = 36519-6] Goal Plan of Care Note [code = 15992-9] Goal Plan of Care Note [code = 64972-9] Goal Plan of Care Note [code = 91093-2] Goal Plan of Care Note [code = 27541-1] Goal Plan of Care Note [code = 20943-9] Goal Plan of Care Note [code = 92883-3] Goal Plan of Care Note [code = 31275-5] Goal Plan of Care Note [code = 23857-5] Goal Plan of Care Note [code = 66121-7] Goal Plan of Care Note [code = 54741-0] Goal Plan of Care Note [code = 45377-1] Goal Plan of Care Note [code = 25681-3] Goal Plan of Care Note [code = 86942-4] Goal Plan of Care Note [code = 24259-1] Goal Plan of Care Note [code = 43458-6] Goal Plan of Care Note [code = 63991-4] Goal Plan of Care Note [code = 21505-0] Goal Plan of Care Note [code = 06756-5] Goal Plan of Care Note [code = 81273-3] Goal Plan of Care Note [code = 69719-1] Goal Plan of Care Note [code = 93650-2] Goal Plan of Care Note [code = 37759-2] Goal Plan of Care Note [code = 27622-9] Goal Plan of Care Note [code = 02343-2] Goal Plan of Care Note [code = 28778-5] Goal Plan of Care Note [code = 18259-8] Goal Plan of Care Note [code = 14746-9] Goal Plan of Care Note [code = 88920-5] Goal Plan of Care Note [code = 22832-3] Goal Plan of Care Note [code = 05348-2] Goal Plan of Care Note [code = 78618-5] Goal Plan of Care Note [code = 69744-0] Goal Plan of Care Note [code = 49162-7] Goal Plan of Care Note [code = 14804-1] Goal Plan of Care Note [code = 39305-2] Goal Plan of Care Note [code = 48063-1] Goal Plan of Care Note [code = 56404-2] Goal Plan of Care Note [code = 55272-9] Goal Plan of Care Note [code = 13648-5] Goal Plan of Care Note [code = 94197-1] Goal Plan of Care Note [code = 18228-8] Goal Plan of Care Note [code = 13625-6] Goal Plan of Care Note [code = 52206-8] Goal Plan of Care Note [code = 12065-3] Goal Plan of Care Note [code = 15601-5] Goal Plan of Care Note [code = 18397-4] Goal Plan of Care Note [code = 88038-6] Goal Plan of Care Note [code = 95086-7] Goal Plan of Care Note [code = 69114-6] Goal Plan of Care Note [code = 31460-1] Goal Plan of Care Note [code = 34904-9] Goal Plan of Care Note [code = 72276-2] Goal Plan of Care Note [code = 97441-3] Goal Plan of Care Note [code = 17299-5] Encounters Start Date/Time End Date/Time Encounter Type Admission Type Attending Clinicians Care Facility Care Department Encounter ID Source 2024-02-09 09:15:00 2024-02-09 09:15:00 Outpatient R KHANH WHELAN [facility] [id number] [facility] 2024-02-07 22:27:00 2024-02-07 23:41:00 Emergency X Mamadou MICHAELS [facility] ERT [id number] [facility] 2024-02-07 22:27:00 2024-02-07 23:41:00 Emergency Mamadou Michaels Hellen [facility] 1.2.840.114 350.1.13.10 4.2.7.2.686 [id number] [facility] 2023-12-18 14:30:00 2023-12-18 14:30:00 Outpatient ANSELMO MON [facility] [id number] [facility] 2023-12-17 16:09:29 2023-12-17 16:09:29 Outpatient SFA SFA [id number] Cj Guzman Orestes 2023-12-12 14:00:00 2023-12-12 14:00:00 Outpatient ANSELMO MON [facility] [id number] [facility] 2023-11-11 15:00:20 2023-11-11 15:00:20 Outpatient SFA SFA [id number] Cj Guzman Orestes 2023-10-30 09:20:09 2023-10-30 09:20:09 Outpatient SFA SFA [id number] Cj Guzman Orestes 2023-10-16 14:55:13 2023-10-16 14:55:13 Outpatient SFA SFA [id number] Cj Guzman Orestes 2023-10-13 10:03:24 2023-10-13 10:03:24 Outpatient SFA SFA [id number] Cj Guzman Orestes 2023-09-03 17:01:34 2023-09-03 17:01:34 Outpatient SFA SFA [id number] Cj Thomas Orestes 2023-08-05 17:09:08 2023-08-05 17:09:08 Outpatient SFA SFA [id number] Cj Thomas Orestes 2023-07-11 10:26:43 2023-07-11 10:26:43 Outpatient SFA SFA [id number] Cj Carlisle 2023-07-05 12:46:18 2023-07-05 12:46:18 Outpatient SFA SFA [id number] Cj Carlisle 2023-06-04 16:14:59 2023-06-04 16:14:59 Outpatient SFA SFA [id number] Cj Carlisle 2023-05-21 14:50:27 2023-05-21 14:50:27 Outpatient SFA SFA [id number] Cj Carlisle 2023-05-07 13:29:15 2023-05-07 13:29:15 Outpatient SFA SFA [id number] Cj Carlisle 2023-05-04 14:07:34 2023-05-04 14:07:34 Outpatient SFA SFA [id number] Cj Guzman Orestes 2023-04-30 15:40:18 2023-04-30 15:40:18 Outpatient SFA SFA [id number] Cj Guzman Orestes 2023-04-08 12:40:22 2023-04-08 12:40:22 Outpatient SFA SFA [id number] Cj Guzman Orestes 2023-03-28 13:58:41 2023-03-28 13:58:41 Outpatient SFA SFA [id number] Cj Guzman Orestes 2023-03-24 12:23:25 2023-03-24 12:23:25 Outpatient SFA SFA [id number] Cj Guzman Orestes 2023-03-10 14:14:23 2023-03-10 14:14:23 Outpatient SFA SFA [id number] Cj Guzman Orestes 2023-02-17 13:57:55 2023-02-17 13:57:55 Outpatient SFA SFA [id number] Cj Guzman Orestes 2022-12-31 14:01:12 2022-12-31 14:01:12 Outpatient SFA SFA [id number] Cj Guzman Orestes 2022-10-17 13:22:30 2022-10-17 13:22:30 Outpatient SFA SFA [id number] Cj Guzman Orestes 2022-07-04 16:27:15 2022-07-04 16:27:15 Outpatient SFA SFA [id number] Cj Carlisle 2022-06-25 09:30:43 2022-06-25 09:30:43 Outpatient SFA SFA [id number] Cj Carlisle 2022-04-04 00:00:00 2022-04-04 00:00:00 Outpatient Visit [id number] 2ih5-0619 -q99u-305 [id number] 1ff14t9e-5 cf4-4333-a 14d-616d2c mmi988 2022-03-29 00:00:00 2022-03-29 00:00:00 Outpatient Visit [id number]- 4i55-875m -aee4-f53 vq7m4s5wg [id number] 33i7k0pd-3 r67-573r-k ee4-f53cf0 d1d1ff 2022-03-23 00:00:00 2022-03-23 00:00:00 Outpatient Visit x22cnw46- x2n4-1p30 -gp91-38r l4i3x136m [id number] c99hrd30-d 5k0-6k25-y e95-39gu1l 1k443x 2022-03-20 00:00:00 2022-03-20 00:00:00 Outpatient Visit [id number] 499b-4139 -p333-o04 [id number] [id number] 31t6608k-3 99b-4139-b 979-d90d6a 082f34 2022-03-11 00:00:00 2022-03-11 00:00:00 Outpatient Visit e4ujv992- 3ho1-7wg2 -9183-471 ndb69j83w [id number] r6ada414-3 be8-4fb1-9 183-471bfe 09f04a 2022-03-05 00:00:00 2022-03-05 00:00:00 Outpatient Visit [id number] 7883-4b9d -ev1o-20f [id number] x2f14373-8 883-4b9d-a n3d-46j978 953bc3 2022-02-28 00:00:00 2022-02-28 00:00:00 Outpatient Visit [id number]- pd75-98l5 -f6cx-6se [id number] 4uy69g10-b q62-43i3-f 3bc-3mr457 [id number] 2932-07-11 00:00:00 2022-02-25 00:00:00 Outpatient Visit [id number]- 03cc-4c8d -8777-5b3 [id number] ef5954o5-9 3cc-4c8d-8 [id number] 20b2eb 2019-11-17 00:00:00 2019-11-17 00:00:00 Telephone Guerrero Whitaker [facility] 1.2.840.114 350.1.13.10 4.2.7.2.686 [id number] [facility] 2019-10-25 00:00:00 2019-10-25 00:00:00 Orders Only Doctor Unassigned, Dardanelle [facility] 12.840.114 350.1.13.10 4.2.7.2.686 [id number] [facility] 2019-10-21 00:00:00 2019-10-21 00:00:00 Office Visit Arlene Valent[facility] TWISTING PRESS OPERATOR Encounter/ [id number] [facility] 2019-10-21 00:00:00 2019-10-21 00:00:00 Office Visit Arlene Valentino [facility] TWISTING PRESS OPERATOR Encounter/ [id number] [facility] 2019-10-19 00:00:00 2019-10-19 00:00:00 Office Visit Arlene Valentino Zuleika [facility] TWISTING PRESS OPERATOR Encounter/ [id number] [facility] 2019-10-19 00:00:00 2019-10-19 00:00:00 Office Visit Chelsy Arlene [facility] TWISTING PRESS OPERATOR Encounter/ [id number] [facility] 2019-10-19 00:00:00 2019-10-19 00:00:00 Office Visit ChelsyAngieArlene [facility]PER[facility] Encounter/ [id number] [facility] 2019-10-18 00:00:00 2019-10-18 00:00:00 Office Visit Arlene Valentino [facility] OPER[facility] Encounter/ [id number] [facility] 2019-10-15 00:00:00 2019-10-15 00:00:00 Office Visit Arlene Valentino [facility]IST[facility] PR[facility] OPER[facility] Encounter/ [id number] [facility] 2019-10-14 00:00:00 2019-10-14 00:00:00 Office Visit Heaven Morrow [facility]/ [id number] [facility] 2019-10-14 00:00:00 2019-10-14 00:00:00 Office Visit Heaven Morrow [facility]/ [id number] [facility] 2019-10-14 00:00:00 2019-10-14 00:00:00 Office Visit Heaven Morrow [facility]IST[facility] PR[facility] OPERATOR Encounter/ [id number] [facility] 2019-10-14 00:00:00 2019-10-14 00:00:00 Office Visit Heaven Morrow [facility]ISTING PRESS OPERATOR Encounter/ [id number] [facility] 2019-10-14 00:00:00 2019-10-14 00:00:00 Office Visit Heaven Morrow Maria Castillo, Stephanie A [facility] TWISTING PRESS OPERATOR Encounter/ [id number] [facility] 2019-10-14 00:00:00 2019-10-14 00:00:00 Office Visit Yina Green [facility] TWISTING PRESS OPERATOR Encounter/ [id number] [facility] 2019-10-11 00:00:00 2019-10-11 00:00:00 [facility] [id number] [facility] 2019-10-07 00:00:00 2019-10-07 00:00:00 Office Visit Responsible Provider, Not Yet Assigned Adali Mcpherson [facility] Encounter/ [id number] [facility] 2019-10-07 00:00:00 2019-10-07 00:00:00 Office Visit Responsible Provider, Not Yet Assigned Adali Mcpherson [facility] En[facility]/ [id number] [facility] 2019-10-07 00:00:00 2019-10-07 00:00:00 Office Visit Responsible Provider, Not Yet Assigned Adali Mcpherson [facility] Encounter/ [id number] [facility] 2019-10-07 00:00:00 2019-10-07 00:00:00 Office Visit Yenni Gross [facility] Encounter/ [id number] [facility] 2019-10-07 00:00:00 2019-10-07 00:00:00 Office Visit Dungeon Master, [facility] Shayy Rios [facility] Encounter/ [id number] [facility] 2019-10-07 00:00:00 2019-10-07 00:00:00 Office Visit Colette Chowdary Erica Sanchez, Dulce Webb, Maria Townsend, Christine [facility] TWISTING PRESS OPERATOR Encounter/ [id number] [facility] 2019-10-06 00:00:00 2019-10-06 00:00:00 Office Visit Yina Green [facility] TWISTING PRESS OPERATOR Encounter/ [id number] [facility] 2019-09-30 15:00:00 2019-09-30 15:00:00 Outpatient R JANNA BONILLA [facility] [id number] [facility] 2019-09-16 00:00:00 2019-09-16 00:00:00 Letter (Out) Janna Bonilla [facility] Eugenio Vit[facility] 1.2.840.114 350.1.13.10 4.2.7.2.686 [id number] [facility] 2019-08-31 16:27:53 2019-08-31 16:42:53 Routine Visit Janna Bonilla [facility] 1.2.840.114 350.1.13.10 4.2.7.2.686 [id number] [facility] 2019-08-27 15:00:00 2019-08-27 18:05:33 Outpatient P BRIDGET GUILLERMINA [facility] [id number] [facility] 2019-05-03 00:00:00 2019-05-03 00:00:00 Case Management Guerrero Whitaker [facility] Building 1.2.840.114 350.1.13.10 4.2.7.2.686 [id number] 134 [id number] [facility] 2019-04-21 00:00:00 2019-04-21 00:00:00 Case Management [facility] 1.2.840.114 350.1.13.10 4.2.7.2.686 [id number] 134 [id number] [facility] 2019-04-21 00:00:00 2019-04-21 00:00:00 Telephone Guerrero Whitaker [facility] 1.2.840.114 350.1.13.10 4.2.7.2.686 [id number] 134 [id number] [facility] 2019-04-20 00:00:00 2019-04-20 00:00:00 Telephone Guerrero Whitaker [facility] 1.2.840.114 350.1.13.10 4.2.7.2.686 [id number] 134 [id number] [facility] 2019-04-14 15:00:27 2019-04-14 15:15:27 Second Baker Visit 1, Adc Lab Guerrero Whitaker [facility] 1.2.840.114 350.1.13.10 4.2.7.2.686 [id number] [facility] 2019-04-14 15:00:00 2019-04-14 15:00:00 Outpatient R GUERRERO WHITAKER [facility] [id number] [facility] 2019-04-14 13:41:25 2019-04-14 14:43:27 Routine Visit Guerrero Whitaker [facility] Building 1.2.840.114 350.1.13.10 4.2.7.2.686 [id number] 134 [id number] [facility] 2019-04-14 00:00:00 2019-04-14 00:00:00 Letter (Out) Guerrero Whitaker [facility] Building 1.2.840.114 350.1.13.10 4.2.7.2.686 [id number] 134 [id number] [facility] [facility] 2019-04-14 00:00:00 2019-04-14 00:00:00 Orders Only Doctor Unassigned, [place] [facility] [id number] 350.1.13.10 [id number] [id number] [facility] 2019-04-07 00:00:00 2019-04-07 00:00:00 Telephone Guerrero Whitaker [facility] [id number] [id number] [id number] [facility] 2019-04-01 00:00:00 2019-04-01 00:00:00 Telephone Guerrero Whitaker [facility] [id number] [id number] [id number] [id number] [facility] 2019-03-17 10:12:58 2019-03-24 08:59:00 Second Baker Visit 1, Adc Lab Guerrero Whitaker [facility] [id number] 350.1.13.10 [id number] [id number] [facility] 2019-03-17 10:15:00 2019-03-17 10:15:00 Outpatient R GUERRERO WHITAKER [facility] [id number] [facility] 2019-03-17 08:58:48 2019-03-17 10:02:46 Initial Visit Guerrero Whitaker [facility] [id number] [id number] [id number] [id number] [facility] Results Test Description Test Time Test Comments Results Result Co mments Source GONORRHEA, NAAT, [id number] 12:29:30* Test Item Value Reference Range Interpretation Comme nts GONORRHEA, NAAT, URINE (test code = 66993) NEGATIVE NEGATIVE Testing is perfo rmed with Elpidio MIRA 6800/8800 systems usingreal-time polymerase chain reaction (PCR) method. A negative result does not exclude low level infection, specimensampling error, or collection error. RPR REFLEX TO T. PALLIDUM - [id number] 04:03:32* Test Item Value Reference Range Interpretation Comme nts RPR (test code = 40130) NON-REACTIVE NON-REACTIVE RPR TITER (test code = 3500) NOT INDIC. TITER NOT INDIC. HIV 1/2 4TH GEN, RFLX [id number] 04:01:26* Test Item Value Reference Range Interpretation Comme nts HIV 1/2 4TH GEN, RFLX CONF ( test code = 3514) NON-REACTIVE NON-REACTIVE HEPATITIS PANEL, [id number] 04:01:26* Test Item Value Reference Range Interpretation Comme nts HEPATITIS A IgM (test code = 99544) NON-REACTIVE NON-REACTIVE HEPATITIS B CORE IgM (test code = 4644) NON-REACTIVE NON-REACTIVE HEPATITIS B SURF AG (test code = 2739) NON-REACTIVE NON-REACTIVE HEPATITIS C ANTIBODY (test code = 4675) NON-REACTIVE NON-REACTIVE INTERPRETATION HEPATITIS A: (test code = 2552) (NOTE) Hepatitis A sero logy shows no evidence of acute hepatitis A. INTERPRETATION HEPATITIS B: (test code = 41689) (NOTE) Hepatitis B sero logy shows no evidence of acute hepatitis B andno indication of exposure to hepatitis B virus in the previous huyen eight months. INTERPRETATION HEPATITIS C: (test code = 06959) (NOTE) Hepatitis C sero logy shows no evidence of exposure to hepatitisC virus at this time. It can take up to 12 months after exposure tothe hepatitis C virus for antibodies to become detectable in the blood in certain patients. UNLESS OTHERWISE INDICATED, ALL TESTING PERFORMED AT [facility] [address] [place] [address] POLE TRUCK DRIVER: SHAYY SANTOS M.D. CLIA NUMBER [id number] [facility]. [id number] CULTURE, ROUTINE SENSITIVITY ON [id number] 14:09:05SPECIMEN NUMBER: [id number] CULTURE, ROUTINE SENSITIVITY ON ALL SPECIMEN NUMBER: [id number] SOURCE: OTHER SOURCE REPORT STATUS: FINAL FINAL REPORT: 07/09/2023 NO SPECIMEN RECEIVED FOR TESTING. CHARGES DELETED.HIV 1/2 4TH GEN, RFLX [id number] 02:08:57* Test Item Value Reference Range Interpretation Comme nts HIV 1/2 4TH GEN, RFLX CONF ( test code = 3514) NON-REACTIVE NON-REACTIVE HEPATITIS PANEL, [id number] 02:08:57* Test Item Value Reference Range Interpretation Comme nts HEPATITIS A IgM (test code = 74714) NON-REACTIVE NON-REACTIVE HEPATITIS B CORE IgM (test code = 4644) NON-REACTIVE NON-REACTIVE HEPATITIS B SURF AG (test code = 2739) NON-REACTIVE NON-REACTIVE HEPATITIS C ANTIBODY (test code = 4675) NON-REACTIVE NON-REACTIVE INTERPRETATION HEPATITIS A: (test code = 2552) (NOTE) Hepatitis A serology shows no evidence of acute hepatitis A. INTERPRETATION HEPATITIS B: (test code = 85724) (NOTE) Hepatitis B serology shows no evidence of acute hepatitis B andno indication of exposure to hepatitis B virus in the previous huyen eight months. INTERPRETATION HEPATITIS C: (test code = 25212) (NOTE) Hepatitis C serology shows no evidence of exposure to hepatitisC virus at this time. It can take up to 12 months after exposure tothe hepatitis C virus for antibodies to become detectable in the blood in certain patients. [id number] 23:37:07* Test Item Value Reference Range Interpretation Comme nts RPR RESULT (test code = 3501) NON-REACTIVE NON-REACTIVE RPR TITER (test code = 3500) NOT INDIC. TITER NOT INDIC. CT/NG, NAAT, [id number] 14:03:18* Test Item Value Reference Range Interpretation Comme nts CHLAMYDIA, NAAT, URINE (test code = 25081) NEGATIVE NEGATIVE Testing is perfo rmed with Elpidio MIRA 6800/8800 systems usingreal-time polymerase chain reaction (PCR) method. A negative result does not exclude low level infection, specimensampling error, or collection error. GONORRHEA, NAAT, URINE (test code = 41228) NEGATIVE NEGATIVE Testing is perfo rmed with Elpidio MIRA 6800/8800 systems usingreal-time polymerase chain reaction (PCR) method. A negative result does not exclude low level infection, specimensampling error, or collection error. UNLESS OTHERWISE INDICATED, ALL TESTING PERFORMED AT [facility] [address] [place] [address] POLE TRUCK DRIVER: SHAYY SANTOS M.D. CLIA NUMBER [id number] [facility] [place]. [id number] CULTURE, [id number] 11:36:54SPECIMEN NUMBER: [id number] CULTURE, URINE SPECIMEN NUMBER: [id number] SPECIMEN COMMENT: URINE SOURCE: URINE REPORT STATUS: FINAL FINAL REPORT: 07/07/2023 50-100,000 CFU/ML UROGENITAL LINDSAY PRESENT NO C OMMON PATHOGENSTRICHOMONAS, NAAT, [id number] 16:23:16* Test Item Value Reference Range Interpretation Comme nts TRICHOMONAS, NAAT, URINE (test code = 19118) NEGATIVE NEGATIVE Testing is perfo rmed with Elpidio MIRA 6800/8800 method usingreal-time polymerase chain reaction (PCR) method. A negative result does not exclude low level infection, specimensampling error, or collection error. CHLAMYDIA, NAAT, [id number] 16:22:13* Test Item Value Reference Range Interpretation Comme nts CHLAMYDIA, NAAT, URINE (test code = 86920) POSITIVE NEGATIVE A Testing is perfo rmed with Elpidio MIRA 6800/8800 systems usingreal-time polymerase chain reaction (PCR) method. GONORRHEA, NAAT, [id number] 16:22:13* Test Item Value Reference Range Interpretation Comme nts GONORRHEA, NAAT, URINE (test code = 93084) NEGATIVE NEGATIVE Testing is perfo rmed with Elpidio MIRA 6800/8800 systems usingreal-time polymerase chain reaction (PCR) method. A negative result does not exclude low level infection, specimensampling error, or collection error. RPR REFLEX TO T. PALLIDUM - [id number] 05:31:29* Test Item Value Reference Range Interpretation Comme nts RPR (test code = 43396) NON-REACTIVE NON-REACTIVE RPR TITER (test code = 3500) NOT INDIC. TITER NOT INDIC. HIV 1/2 4TH GEN, RFLX [id number] 05:05:42* Test Item Value Reference Range Interpretation Comme nts HIV 1/2 4TH GEN, RFLX CONF ( test code = 3514) NON-REACTIVE NON-REACTIVE HEPATITIS PANEL, [id number] 05:05:42* Test Item Value Reference Range Interpretation Comme nts HEPATITIS A IgM (test code = 13664) NON-REACTIVE NON-REACTIVE HEPATITIS B CORE IgM (test code = 4644) NON-REACTIVE NON-REACTIVE HEPATITIS B SURF AG (test code = 2739) NON-REACTIVE NON-REACTIVE HEPATITIS C ANTIBODY (test code = 4675) NON-REACTIVE NON-REACTIVE INTERPRETATION HEPATITIS A: (test code = 2552) (NOTE) Hepatitis A sero logy shows no evidence of acute hepatitis A. INTERPRETATION HEPATITIS B: (test code = 95900) (NOTE) Hepatitis B sero logy shows no evidence of acute hepatitis B andno indication of exposure to hepatitis B virus in the previous huyen eight months. INTERPRETATION HEPATITIS C: (test code = 04711) (NOTE) Hepatitis C sero logy shows no evidence of exposure to hepatitisC virus at this time. It can take up to 12 months after exposure tothe hepatitis C virus for antibodies to become detectable in the blood in certain patients. [facility] has important pathology staff changes effective 10/16/2022. New pathology staff will provide uninterrupted, excellent patient care and clinical consultation. See URL: [email or web address]. UNLESS OTHERWISE INDICATED, ALL TESTING PERFORMED AT [facility], [facility]. [address] [place] [address] POLE TRUCK DRIVER: CAMPOS ALVARENGA M.D. CLIA NUMBER [id number] [place]. [id number] GONORRHEA, NAAT, [id number] 13:11:20* Test Item Value Reference Range Interpretation Comme nts GONORRHEA, NAAT (test code = 00428) NEGATIVE NEGATIVE IMPORTANT NO KWAKU: SEE ANNOUNCEMENT AT [email or web address] Note: Assay methodology is nucleic acid amplification by electronics worker mediated amplification (TMA) utilizing the Aptima Combo 2 Assay. UNLESS OTHERWISE INDICATED, ALL TESTING PERFORMED [facility], [facility]. [address] [place] [address] POLE TRUCK DRIVER: CAMPOS ALVARENGA M.D. CLIA NUMBER [id number] [place]. [id number] CHLAMYDIA, NAAT, [id number] 13:11:20* Test Item Value Reference Range Interpretation Comme nts CHLAMYDIA, NAAT (test code = 66442) NEGATIVE NEGATIVE IMPORTANT NO KWAKU: SEE ANNOUNCEMENT AT [email or web address] [email or web address] Note: Assay methodology is nucleic acid amplification by electronics worker mediated amplification (TMA) utilizing the Aptima Combo 2 Assay. CHLAMYDIA, AMPLIFIED, [id number] 00:00:00* Test Item Value Reference Range Interpretation Comme nts CHLAMYDIA, NAAT (test code = 25015) NEGATIVE CHLAMYDIA, AMPLIFIED, [id number] 00:00:00* Test Item Value Reference Range Interpretation Comme nts CHLAMYDIA, NAAT (test code = 34233) NEGATIVE GC, AMPLIFIED, [id number] 00:00:00* Test Item Value Reference Range Interpretation Comme nts GONORRHEA, NAAT (test code = 86423) NEGATIVE GC, AMPLIFIED, [id number] 00:00:00* Test Item Value Reference Range Interpretation Comme nts GONORRHEA, NAAT (test code = 22165) NEGATIVE CHLAMYDIA, AMPLIFIED, [id number] 00:00:00* Test Item Value Reference Range Interpretation Comme nts CHLAMYDIA, NAAT (test code = 18879) NEGATIVE CHLAMYDIA, AMPLIFIED, [id number] 00:00:00* Test Item Value Reference Range Interpretation Comme nts CHLAMYDIA, NAAT (test code = 03832) NEGATIVE GC, AMPLIFIED, [id number] 00:00:00* Test Item Value Reference Range Interpretation Comme nts GONORRHEA, NAAT (test code = 70426) NEGATIVE GC, AMPLIFIED, [id number] 00:00:00* Test Item Value Reference Range Interpretation Comme nts GONORRHEA, NAAT (test code = 78551) NEGATIVE CHLAMYDIA, AMPLIFIED, [id number] 00:00:00* Test Item Value Reference Range Interpretation Comme nts CHLAMYDIA, NAAT (test code = 02879) NEGATIVE GC, AMPLIFIED, [id number] 00:00:00* Test Item Value Reference Range Interpretation Comme nts GONORRHEA, NAAT (test code = 05665) NEGATIVE CHLAMYDIA, AMPLIFIED, [id number] 00:00:00* Test Item Value Reference Range Interpretation Comme nts CHLAMYDIA, NAAT (test code = 95861) NEGATIVE GC, AMPLIFIED, [id number] 00:00:00* Test Item Value Reference Range Interpretation Comme nts GONORRHEA, NAAT (test code = 71779) NEGATIVE CHLAMYDIA, AMPLIFIED, [id number] 00:00:00* Test Item Value Reference Range Interpretation Comme nts CHLAMYDIA, NAAT (test code = 41519) NEGATIVE GC, AMPLIFIED, [id number] 00:00:00* Test Item Value Reference Range Interpretation Comme nts GONORRHEA, NAAT (test code = 13578) NEGATIVE CHLAMYDIA, AMPLIFIED, [id number] 00:00:00* Test Item Value Reference Range Interpretation Comme nts CHLAMYDIA, NAAT (test code = 05949) NEGATIVE CHLAMYDIA, AMPLIFIED, [id number] 00:00:00* Test Item Value Reference Range Interpretation Comme nts CHLAMYDIA, NAAT (test code = 13416) NEGATIVE GC, AMPLIFIED, [id number] 00:00:00* Test Item Value Reference Range Interpretation Comme nts GONORRHEA, NAAT (test code = 10574) NEGATIVE GC, AMPLIFIED, [id number] 00:00:00* Test Item Value Reference Range Interpretation Comme nts GONORRHEA, NAAT (test code = 68469) NEGATIVE CHLAMYDIA, AMPLIFIED, [id number] 00:00:00* Test Item Value Reference Range Interpretation Comme nts CHLAMYDIA, NAAT (test code = 63743) NEGATIVE GC, AMPLIFIED, [id number] 00:00:00* Test Item Value Reference Range Interpretation Comme nts GONORRHEA, NAAT (test code = 70406) NEGATIVE CHLAMYDIA, AMPLIFIED, [id number] 00:00:00* Test Item Value Reference Range Interpretation Comme nts CHLAMYDIA, NAAT (test code = 03300) NEGATIVE CHLAMYDIA, AMPLIFIED, [id number] 00:00:00* Test Item Value Reference Range Interpretation Comme nts CHLAMYDIA, NAAT (test code = 24747) NEGATIVE GC, AMPLIFIED, [id number] 00:00:00* Test Item Value Reference Range Interpretation Comme nts GONORRHEA, NAAT (test code = 08393) NEGATIVE GC, AMPLIFIED, [id number] 00:00:00* Test Item Value Reference Range Interpretation Comme nts GONORRHEA, NAAT (test code = 22936) NEGATIVE CT/NG, NAAT, [id number] 19:10:11* Test Item Value Reference Range Interpretation Comme nts GONORRHEA, NAAT (test code = 48607) NEGATIVE NEGATIVE IMPORTANT NO KWAKU: SEE ANNOUNCEMENT AT [email or web address] Data SystemsUrineKit Note: Assay methodology is nucleic acid amplification by electronics worker mediated amplification (TMA) utilizing the AptAmbrx Combo 2 Assay. CHLAMYDIA, NAAT (test code = 05961) POSITIVE NEGATIVE A IMPORTANT NO KWAKU: SEE ANNOUNCEMENT AT [email or web address] Note: Assay methodology is nucleic acid amplification by electronics worker mediated amplification (TMA) utilizing the AptAmbrx Combo 2 Assay. UNLESS OTHERWISE INDICATED, [facility]. [address] [place] [address] POLE TRUCK DRIVER: CAMPOS ALVARENGA M.D. CLIA NUMBER [id number] [place]. [id number] GC AND CHLAMYDIA, AMPLIFIED, [id number] 00:00:00* Test Item Value Reference Range Interpretation Comme nts GONORRHEA, NAAT (test code = 29580) NEGATIVE CHLAMYDIA, NAAT (test code = 40130) POSITIVE GC AND CHLAMYDIA, AMPLIFIED, [id number] 00:00:00* Test Item Value Reference Range Interpretation Comme nts GONORRHEA, NAAT (test code = 86038) NEGATIVE CHLAMYDIA, NAAT (test code = 07299) POSITIVE GC AND CHLAMYDIA, AMPLIFIED, [id number] 00:00:00* Test Item Value Reference Range Interpretation Comme nts GONORRHEA, NAAT (test code = 34147) NEGATIVE CHLAMYDIA, NAAT (test code = 62691) POSITIVE GC AND CHLAMYDIA, AMPLIFIED, [id number] 00:00:00* Test Item Value Reference Range Interpretation Comme nts GONORRHEA, NAAT (test code = 14782) NEGATIVE CHLAMYDIA, NAAT (test code = 51522) POSITIVE GC AND CHLAMYDIA, AMPLIFIED, [id number] 00:00:00* Test Item Value Reference Range Interpretation Comme nts GONORRHEA, NAAT (test code = 81094) NEGATIVE CHLAMYDIA, NAAT (test code = 40563) POSITIVE GC AND CHLAMYDIA, AMPLIFIED, [id number] 00:00:00* Test Item Value Reference Range Interpretation Comme nts GONORRHEA, NAAT (test code = 11100) NEGATIVE CHLAMYDIA, NAAT (test code = 42523) POSITIVE GC AND CHLAMYDIA, AMPLIFIED, [id number] 00:00:00* Test Item Value Reference Range Interpretation Comme nts GONORRHEA, NAAT (test code = 63521) NEGATIVE CHLAMYDIA, NAAT (test code = 20795) POSITIVE GC AND CHLAMYDIA, AMPLIFIED, [id number] 00:00:00* Test Item Value Reference Range Interpretation Comme nts GONORRHEA, NAAT (test code = 90964) NEGATIVE CHLAMYDIA, NAAT (test code = 19161) POSITIVE GC AND CHLAMYDIA, AMPLIFIED, [id number] 00:00:00* Test Item Value Reference Range Interpretation Comme nts GONORRHEA, NAAT (test code = 33875) NEGATIVE CHLAMYDIA, NAAT (test code = 55885) POSITIVE GC AND CHLAMYDIA, AMPLIFIED, [id number] 00:00:00* Test Item Value Reference Range Interpretation Comme nts GONORRHEA, NAAT (test code = 39537) NEGATIVE CHLAMYDIA, NAAT (test code = 23280) POSITIVE GC AND CHLAMYDIA, AMPLIFIED, [id number] 00:00:00* Test Item Value Reference Range Interpretation Comme nts GONORRHEA, NAAT (test code = 45193) NEGATIVE CHLAMYDIA, NAAT (test code = 87886) POSITIVE GC AND CHLAMYDIA, AMPLIFIED, [id number] 00:00:00* Test Item Value Reference Range Interpretation Comme nts GONORRHEA, NAAT (test code = 33254) NEGATIVE CHLAMYDIA, NAAT (test code = 67615) POSITIVE HIV AB/AG COMBO RFLX [id number] 00:00:00* Test Item Value Reference Range Interpretation Comme nts HIV 1/2 4TH GEN, RFLX CONF ( test code = 3514) NON-REACTIVE HIV AB/AG COMBO RFLX [id number] 00:00:00* Test Item Value Reference Range Interpretation Comme nts HIV 1/2 4TH GEN, RFLX CONF ( test code = 3514) NON-REACTIVE ACUTE HEPATITIS [id number] 00:00:00* Test Item Value Reference Range Interpretation Comme nts HEPATITIS A IgM (test code = 57470) NON-REACTIVE HEPATITIS B CORE IgM (test c ode = 4644) NON-REACTIVE HEPATITIS B SURF AG (test co de = 2739) NON-REACTIVE HEPATITIS C ANTIBODY (test c ode = 4675) NON-REACTIVE INTERPRETATION HEPATITIS A: (test code = 2552) (NOTE) INTERPRETATION HEPATITIS B: (test code = 28156) (NOTE) INTERPRETATION HEPATITIS C: (test code = 93341) (NOTE) ACUTE HEPATITIS [id number] 00:00:00* Test Item Value Reference Range Interpretation Comme nts HEPATITIS A IgM (test code = 94419) NON-REACTIVE HEPATITIS B CORE IgM (test c ode = 4644) NON-REACTIVE HEPATITIS B SURF AG (test co de = 2739) NON-REACTIVE HEPATITIS C ANTIBODY (test c ode = 4675) NON-REACTIVE INTERPRETATION HEPATITIS A: (test code = 2552) (NOTE) INTERPRETATION HEPATITIS B: (test code = 12586) (NOTE) INTERPRETATION HEPATITIS C: (test code = 84310) (NOTE) GC, AMPLIFIED, [id number] 00:00:00* Test Item Value Reference Range Interpretation Comme nts GONORRHEA, NAAT (test code = 87620) NEGATIVE GC, AMPLIFIED, [id number] 00:00:00* Test Item Value Reference Range Interpretation Comme nts GONORRHEA, NAAT (test code = 76651) NEGATIVE CHLAMYDIA, AMPLIFIED, [id number] 00:00:00* Test Item Value Reference Range Interpretation Comme nts CHLAMYDIA, NAAT (test code = 18794) POSITIVE CHLAMYDIA, AMPLIFIED, [id number] 00:00:00* Test Item Value Reference Range Interpretation Comme nts CHLAMYDIA, NAAT (test code = 73530) POSITIVE HIV AB/AG COMBO RFLX [id number] 00:00:00* Test Item Value Reference Range Interpretation Comme nts HIV 1/2 4TH GEN, RFLX CONF ( test code = 3514) NON-REACTIVE HIV AB/AG COMBO RFLX [id number] 00:00:00* Test Item Value Reference Range Interpretation Comme nts HIV 1/2 4TH GEN, RFLX CONF ( test code = 3514) NON-REACTIVE ACUTE HEPATITIS [id number] 00:00:00* Test Item Value Reference Range Interpretation Comme nts HEPATITIS A IgM (test code = 03165) NON-REACTIVE HEPATITIS B CORE IgM (test c ode = 4644) NON-REACTIVE HEPATITIS B SURF AG (test co de = 2739) NON-REACTIVE HEPATITIS C ANTIBODY (test c ode = 4675) NON-REACTIVE INTERPRETATION HEPATITIS A: (test code = 2552) (NOTE) INTERPRETATION HEPATITIS B: (test code = 29608) (NOTE) INTERPRETATION HEPATITIS C: (test code = 51981) (NOTE) ACUTE HEPATITIS [id number] 00:00:00* Test Item Value Reference Range Interpretation Comme nts HEPATITIS A IgM (test code = 22957) NON-REACTIVE HEPATITIS B CORE IgM (test c ode = 4644) NON-REACTIVE HEPATITIS B SURF AG (test co de = 2739) NON-REACTIVE HEPATITIS C ANTIBODY (test c ode = 4675) NON-REACTIVE INTERPRETATION HEPATITIS A: (test code = 2552) (NOTE) INTERPRETATION HEPATITIS B: (test code = 49639) (NOTE) INTERPRETATION HEPATITIS C: (test code = 48474) (NOTE) GC, AMPLIFIED, [id number] 00:00:00* Test Item Value Reference Range Interpretation Comme nts GONORRHEA, NAAT (test code = 08568) NEGATIVE GC, AMPLIFIED, [id number] 00:00:00* Test Item Value Reference Range Interpretation Comme nts GONORRHEA, NAAT (test code = 00610) NEGATIVE CHLAMYDIA, AMPLIFIED, [id number] 00:00:00* Test Item Value Reference Range Interpretation Comme nts CHLAMYDIA, NAAT (test code = 36002) POSITIVE CHLAMYDIA, AMPLIFIED, [id number] 00:00:00* Test Item Value Reference Range Interpretation Comme nts CHLAMYDIA, NAAT (test code = 83189) POSITIVE HIV AB/AG COMBO RFLX [id number] 00:00:00* Test Item Value Reference Range Interpretation Comme nts HIV 1/2 4TH GEN, RFLX CONF ( test code = 3514) NON-REACTIVE ACUTE HEPATITIS [id number] 00:00:00* Test Item Value Reference Range Interpretation Comme nts HEPATITIS A IgM (test code = 74526) NON-REACTIVE HEPATITIS B CORE IgM (test c ode = 4644) NON-REACTIVE HEPATITIS B SURF AG (test co de = 2739) NON-REACTIVE HEPATITIS C ANTIBODY (test c ode = 4675) NON-REACTIVE INTERPRETATION HEPATITIS A: (test code = 2552) (NOTE) INTERPRETATION HEPATITIS B: (test code = 99381) (NOTE) INTERPRETATION HEPATITIS C: (test code = 11729) (NOTE) GC, AMPLIFIED, [id number] 00:00:00* Test Item Value Reference Range Interpretation Comme nts GONORRHEA, NAAT (test code = 58529) NEGATIVE CHLAMYDIA, AMPLIFIED, [id number] 00:00:00* Test Item Value Reference Range Interpretation Comme nts CHLAMYDIA, NAAT (test code = 08075) POSITIVE HIV AB/AG COMBO RFLX [id number] 00:00:00* Test Item Value Reference Range Interpretation Comme nts HIV 1/2 4TH GEN, RFLX CONF ( test code = 3514) NON-REACTIVE ACUTE HEPATITIS [id number] 00:00:00* Test Item Value Reference Range Interpretation Comme nts HEPATITIS A IgM (test code = 90352) NON-REACTIVE HEPATITIS B CORE IgM (test c ode = 4644) NON-REACTIVE HEPATITIS B SURF AG (test co de = 2739) NON-REACTIVE HEPATITIS C ANTIBODY (test c ode = 4675) NON-REACTIVE INTERPRETATION HEPATITIS A: (test code = 2552) (NOTE) INTERPRETATION HEPATITIS B: (test code = 37796) (NOTE) INTERPRETATION HEPATITIS C: (test code = 97413) (NOTE) GC, AMPLIFIED, [id number] 00:00:00* Test Item Value Reference Range Interpretation Comme nts GONORRHEA, NAAT (test code = 04991) NEGATIVE CHLAMYDIA, AMPLIFIED, [id number] 00:00:00* Test Item Value Reference Range Interpretation Comme nts CHLAMYDIA, NAAT (test code = 78062) POSITIVE HIV AB/AG COMBO RFLX [id number] 00:00:00* Test Item Value Reference Range Interpretation Comme nts HIV 1/2 4TH GEN, RFLX CONF ( test code = 3514) NON-REACTIVE ACUTE HEPATITIS [id number] 00:00:00* Test Item Value Reference Range Interpretation Comme nts HEPATITIS A IgM (test code = 25593) NON-REACTIVE HEPATITIS B CORE IgM (test c ode = 4644) NON-REACTIVE HEPATITIS B SURF AG (test co de = 2739) NON-REACTIVE HEPATITIS C ANTIBODY (test c ode = 4675) NON-REACTIVE INTERPRETATION HEPATITIS A: (test code = 2552) (NOTE) INTERPRETATION HEPATITIS B: (test code = 15892) (NOTE) INTERPRETATION HEPATITIS C: (test code = 46635) (NOTE) GC, AMPLIFIED, [id number] 00:00:00* Test Item Value Reference Range Interpretation Comme nts GONORRHEA, NAAT (test code = 86953) NEGATIVE CHLAMYDIA, AMPLIFIED, [id number] 00:00:00* Test Item Value Reference Range Interpretation Comme nts CHLAMYDIA, NAAT (test code = 16948) POSITIVE HIV AB/AG COMBO RFLX [id number] 00:00:00* Test Item Value Reference Range Interpretation Comme nts HIV 1/2 4TH GEN, RFLX CONF ( test code = 3514) NON-REACTIVE HIV AB/AG COMBO RFLX [id number] 00:00:00* Test Item Value Reference Range Interpretation Comme nts HIV 1/2 4TH GEN, RFLX CONF ( test code = 3514) NON-REACTIVE ACUTE HEPATITIS [id number] 00:00:00* Test Item Value Reference Range Interpretation Comme nts HEPATITIS A IgM (test code = 88153) NON-REACTIVE HEPATITIS B CORE IgM (test c ode = 4644) NON-REACTIVE HEPATITIS B SURF AG (test co de = 2739) NON-REACTIVE HEPATITIS C ANTIBODY (test c ode = 4675) NON-REACTIVE INTERPRETATION HEPATITIS A: (test code = 2552) (NOTE) INTERPRETATION HEPATITIS B: (test code = 16488) (NOTE) INTERPRETATION HEPATITIS C: (test code = 8[address]40) (NOTE) ACUTE HEPATITIS [id number] 00:00:00* Test Item Value Reference Range Interpretation Comme nts HEPATITIS A IgM (test code = 35085) NON-REACTIVE HEPATITIS B CORE IgM (test c ode = 4644) NON-REACTIVE HEPATITIS B SURF AG (test co de = 2739) NON-REACTIVE HEPATITIS C ANTIBODY (test c ode = 4675) NON-REACTIVE INTERPRETATION HEPATITIS A: (test code = 2552) (NOTE) INTERPRETATION HEPATITIS B: (test code = 38148) (NOTE) INTERPRETATION HEPATITIS C: (test code = 11224) (NOTE) GC, AMPLIFIED, [id number] 00:00:00* Test Item Value Reference Range Interpretation Comme nts GONORRHEA, NAAT (test code = 80544) NEGATIVE GC, AMPLIFIED, [id number] 00:00:00* Test Item Value Reference Range Interpretation Comme nts GONORRHEA, NAAT (test code = 62436) NEGATIVE CHLAMYDIA, AMPLIFIED, [id number] 00:00:00* Test Item Value Reference Range Interpretation Comme nts CHLAMYDIA, NAAT (test code = 35627) POSITIVE CHLAMYDIA, AMPLIFIED, [id number] 00:00:00* Test Item Value Reference Range Interpretation Comme nts CHLAMYDIA, NAAT (test code = 59075) POSITIVE HIV AB/AG COMBO RFLX [id number] 00:00:00* Test Item Value Reference Range Interpretation Comme nts HIV 1/2 4TH GEN, RFLX CONF ( test code = 3514) NON-REACTIVE ACUTE HEPATITIS [id number] 00:00:00* Test Item Value Reference Range Interpretation Comme nts HEPATITIS A IgM (test code = 56090) NON-REACTIVE HEPATITIS B CORE IgM (test c ode = 4644) NON-REACTIVE HEPATITIS B SURF AG (test co de = 2739) NON-REACTIVE HEPATITIS C ANTIBODY (test c ode = 4675) NON-REACTIVE INTERPRETATION HEPATITIS A: (test code = 2552) (NOTE) INTERPRETATION HEPATITIS B: (test code = 24403) (NOTE) INTERPRETATION HEPATITIS C: (test code = 54553) (NOTE) HIV AB/AG COMBO RFLX [id number] 00:00:00* Test Item Value Reference Range Interpretation Comme nts HIV 1/2 4TH GEN, RFLX CONF ( test code = 3514) NON-REACTIVE HIV AB/AG COMBO RFLX [id number] 00:00:00* Test Item Value Reference Range Interpretation Comme nts HIV 1/2 4TH GEN, RFLX CONF ( test code = 3514) NON-REACTIVE GC, AMPLIFIED, [id number] 00:00:00* Test Item Value Reference Range Interpretation Comme nts GONORRHEA, NAAT (test code = 73128) NEGATIVE ACUTE HEPATITIS [id number] 00:00:00* Test Item Value Reference Range Interpretation Comme nts HEPATITIS A IgM (test code = 68176) NON-REACTIVE HEPATITIS B CORE IgM (test c ode = 4644) NON-REACTIVE HEPATITIS B SURF AG (test co de = 2739) NON-REACTIVE HEPATITIS C ANTIBODY (test c ode = 4675) NON-REACTIVE INTERPRETATION HEPATITIS A: (test code = 2552) (NOTE) INTERPRETATION HEPATITIS B: (test code = 52968) (NOTE) INTERPRETATION HEPATITIS C: (test code = 58838) (NOTE) ACUTE HEPATITIS [id number] 00:00:00* Test Item Value Reference Range Interpretation Comme nts HEPATITIS A IgM (test code = 57129) NON-REACTIVE HEPATITIS B CORE IgM (test c ode = 4644) NON-REACTIVE HEPATITIS B SURF AG (test co de = 2739) NON-REACTIVE HEPATITIS C ANTIBODY (test c ode = 4620) NON-REACTIVE INTERPRETATION HEPATITIS A: (test code = 2552) (NOTE) INTERPRETATION HEPATITIS B: (test code = 92895) (NOTE) INTERPRETATION HEPATITIS C: (test code = 62740) (NOTE) GC, AMPLIFIED, [id number] 00:00:00* Test Item Value Reference Range Interpretation Comme nts GONORRHEA, NAAT (test code = 83784) NEGATIVE GC, AMPLIFIED, [id number] 00:00:00* Test Item Value Reference Range Interpretation Comme nts GONORRHEA, NAAT (test code = 48617) NEGATIVE CHLAMYDIA, AMPLIFIED, [id number] 00:00:00* Test Item Value Reference Range Interpretation Comme nts CHLAMYDIA, NAAT (test code = 79082) POSITIVE CHLAMYDIA, AMPLIFIED, [id number] 00:00:00* Test Item Value Reference Range Interpretation Comme nts CHLAMYDIA, NAAT (test code = 62133) POSITIVE CHLAMYDIA, AMPLIFIED, [id number] 00:00:00* Test Item Value Reference Range Interpretation Comme nts CHLAMYDIA, NAAT (test code = 44147) POSITIVE leukocyte count, [id number] 15:42:00* Test Item Value Reference Range Interpretation Comme nts leukocyte count, blood (test code = 68) 9.7 X10E3/UL 3.4-10.8 [facility] surface [id number] 15:42:00* Test Item Value Reference Range Interpretation Comme nts hepatitis B surface antigen (test code = 79) Negative Negative [facility] CenterRh [id number] 15:42:00* Test Item Value Reference Range Interpretation Comme nts Rh antibody (test code = 256) Negative Negative [facility] Centerblood glucose, 1 hour after 50 gm oral [id number] 15:42:00* Test Item Value Reference Range Interpretation Comme nts blood glucose, 1 hour after 50 gm oral glucose (test code = 1039) 111 mg/dL 65-139 [facility] CenterHIV-CMIA (Chemiluminescent Microparticle Immuno Assay) 2019-10-14 15:42:00* Test Item Value Reference Range Interpretation Comme nts HIV-CMIA (Chemiluminescent Microparticle Immuno Assay) (test code = 841979) Non Reactive Non Reactive [facility] Centerrapid plasma reagin antibody, [id number] 15:42:00* Test Item Value Reference Range Interpretation Comme nts rapid plasma reagin antibody , serum (test code = 308) Non Reactive Non Reactive [facility] Centerrubella antibody, serum, [id number] 15:42:00* Test Item Value Reference Range Interpretation Comme nts rubella antibody, serum, IgG (test code = 81) 1.33 Immune >0.99 [facility] CenterRh [id number] 15:42:00* Test Item Value Reference Range Interpretation Comme nts Rh antigen (test code = 255) Positive [facility] CenterABO blood [id number] 15:42:00* Test Item Value Reference Range Interpretation Comme nts ABO blood group (test code = 116) A [facility] CenterNeisseria gonorrhoeae DNA [id number] 15:42:00* Test Item Value Reference Range Interpretation Comme nts Neisseria gonorrhoeae DNA pr obe (test code = 06758-3) Negative Negative [facility] Centerchlamydia DNA [id number] 15:42:00* Test Item Value Reference Range Interpretation Comme nts chlamydia DNA probe (test co de = 19284-7) Negative Negative [facility] Centerimmature granulocytes, percentage of total cells, blood 2019-10-14 15:42:00* Test Item Value Reference Range Interpretation Comme nts immature granulocytes, perce ntage of total cells, blood (test code = 702544) 0 % [facility] Centerbasophil count, [id number] 15:42:00* Test Item Value Reference Range Interpretation Comme nts basophil count, absolute (te st code = 23209) 0.0 x10E3/uL 0.0-0.3 [facility] CenterEosinophil Absolute [id number] 15:42:00* Test Item Value Reference Range Interpretation Comme nts Eosinophil Absolute Count (t est code = 964108) 0.0 X10E3/UL 0.0-0.4 [facility] Centermonocyte count, blood, [id number] 15:42:00* Test Item Value Reference Range Interpretation Comme nts monocyte count, blood, autom ated (test code = 3076) 0.8 X10E3/UL 0.1-0.9 [facility] Healthlymphocyte count, blood, [id number] 15:42:00* Test Item Value Reference Range Interpretation Comme nts lymphocyte count, blood, automated (test code = 3074) 1.2 X10E3/UL 0.7-3.1 [facility] CenterAbsolute Ymxsxsthjkd7868-41-24 15:42:00* Test Item Value Reference Range Interpretation Comme nts Absolute Neutrophils (test c ode = 89993) 7.7 X10E3/UL 1.4-7.0 H [facility] Centerbasophils as percent of blood akmqfizskk9747-98-70 15:42:00* Test Item Value Reference Range Interpretation Comme nts basophils as percent of bloo d leukocytes (test code = 2426) 0 % [facility] Centereosinophils as percent of blood vyfyywmgjj2971-75-89 15:42:00* Test Item Value Reference Range Interpretation Comme nts eosinophils as percent of bl ood leukocytes (test code = 4170) 0 % [facility] Healthmonocytes as percent of blood dgivvrdfuy4421-30-33 15:42:00* Test Item Value Reference Range Interpretation Comme nts monocytes as percent of bloo d leukocytes (test code = 2421) 8 % [facility] Centerlymphocytes as percent of blood rugvvjbivv8803-29-51 15:42:00* Test Item Value Reference Range Interpretation Comme nts lymphocytes as percent of bl ood leukocytes (test code = 317) 12 % [facility] Healthneutrophils as percent of blood gkhpnxmiay2754-37-26 15:42:00* Test Item Value Reference Range Interpretation Comme nts neutrophils as percent of bl ood leukocytes (test code = 316) 80 % [facility] Centerplatelet [id number] 15:42:00* Test Item Value Reference Range Interpretation Comme nts platelet count (test code = 66) 422 X10E3/UL 150-450 [facility] Centerred blood cell distribution [id number] 15:42:00* Test Item Value Reference Range Interpretation Comme nts red blood cell distribution width (test code = 1030) 14.1 % 11.7-15.4 [facility] corpuscular hemoglobin concentration, [id number] 15:42:00* Test Item Value Reference Range Interpretation Comme nts mean corpuscular hemoglobin concentration, RBC (test code = 1029) 32.3 G/DL 31.5-35.7 [facility] corpuscular hemoglobin, [id number] 15:42:00* Test Item Value Reference Range Interpretation Comme nts mean corpuscular hemoglobin, RBC (test code = 1031) 24.2 pg 26.6-33.0 L [facility] corpuscular volume, [id number] 15:42:00* Test Item Value Reference Range Interpretation Comme nts mean corpuscular volume, RBC (test code = 315) 75 fL 79-97 L [facility] Centerhematocrit, [id number] 15:42:00* Test Item Value Reference Range Interpretation Comme nts hematocrit, blood (test code = 64) 32.2 % 34.0-46.6 L [facility] Centerhemoglobin, [id number] 15:42:00* Test Item Value Reference Range Interpretation Comme nts hemoglobin, blood (test code = 65) 10.4 g/dL 11.1-15.9 L [facility] Centererythrocyte (RBC) sedey6268-07-81 15:42:00* Test Item Value Reference Range Interpretation Comme nts erythrocyte (RBC) count (ruslan t code = 67) 4.30 X10E6/UL 3.77-5.28 [facility] Centerurine bcnzpps2800-69-97 15:14:00* Test Item Value Reference Range Interpretation Comme nts urine culture (test code = 58318) No growth [facility] CenterNeisseria gonorrhoeae DNA [id number] 15:14:00* Test Item Value Reference Range Interpretation Comme nts Neisseria gonorrhoeae DNA pr obe (test code = 26326-8) Negative Negative [facility] Centerchlamydia DNA [id number] 15:14:00* Test Item Value Reference Range Interpretation Comme nts chlamydia DNA probe (test co de = 64312-1) Negative Negative [facility] CenterVaginal Group B Strep by Real-Time [id number] 16:28:00 * Test Item Value Reference Range Interpretation Comme nts Vaginal Group B Strep by Kelsea l-Time PCR (test code = 452689) Negative Negative [facility] Centerurine [id number] 16:27:00* Test Item Value Reference Range Interpretation Comme nts urine culture (test code = 92582) MUG [facility] Centerprotein, urine, semiquantitative (dipstick)2019-10-07 16:27:00* Test Item Value Reference Range Interpretation Comme nts protein, urine, semiquantita tive (dipstick) (test code = 1753-3) 33.6 [facility] Centercreatinine, random, [id number] 16:27:00* Test Item Value Reference Range Interpretation Comme nts creatinine, random, urine (t est code = 5167) 121.8 mg/dL [facility] Centeralanine aminotransferase (SGPT), [id number] 15:59:00 * Test Item Value Reference Range Interpretation Comme nts alanine aminotransferase (SG PT), serum (test code = 40) 13 1/L 0-24 [facility] Centeraspartate aminotransferase (SGOT), puvrf8144-01-09 15:59:00* Test Item Value Reference Range Interpretation Comme nts aspartate aminotransferase ( SGOT), serum (test code = 39) 16 1/L 0-40 [facility] CenterHIV-CMIA (Chemiluminescent Microparticle Immuno Assay) 2019-10-07 15:59:00* Test Item Value Reference Range Interpretation Comme nts HIV-CMIA (Chemiluminescent Microparticle Immuno Assay) (test code = 364642) Non Reactive Non Reactive [facility] Centerrapid plasma reagin antibody, [id number] 15:59:00* Test Item Value Reference Range Interpretation Comme nts rapid plasma reagin antibody , serum (test code = 308) Non Reactive Non Reactive [facility] Centerimmature granulocytes, percentage of total cells, blood 2019-10-07 15:59:00* Test Item Value Reference Range Interpretation Comme nts immature granulocytes, perce ntage of total cells, blood (test code = 523953) 3 % [facility] Centerbasophil count, qfntyswz9417-04-02 15:59:00* Test Item Value Reference Range Interpretation Comme nts basophil count, absolute (te st code = 42984) 0.0 x10E3/uL 0.0-0.3 [facility] HealthEosinophil Absolute Ohear3048-85-90 15:59:00* Test Item Value Reference Range Interpretation Comme nts Eosinophil Absolute Count (t est code = 292474) 0.1 X10E3/UL 0.0-0.4 [facility] Healthmonocyte count, blood, jqjjdrzuu2874-66-79 15:59:00* Test Item Value Reference Range Interpretation Comme nts monocyte count, blood, autom ated (test code = 3076) 1.2 X10E3/UL 0.1-0.9 H [facility] Healthlymphocyte count, blood, [id number] 15:59:00* Test Item Value Reference Range Interpretation Comme nts lymphocyte count, blood, automated (test code = 3074) 1.6 X10E3/UL 0.7-3.1 [facility] HealthAbsolute Dwtrjvmnrye0946-91-24 15:59:00* Test Item Value Reference Range Interpretation Comme nts Absolute Neutrophils (test c ode = 70571) 9.4 X10E3/UL 1.4-7.0 H [facility] Healthbasophils as percent of blood xdugvcmsfx5484-90-65 15:59:00* Test Item Value Reference Range Interpretation Comme nts basophils as percent of bloo d leukocytes (test code = 2426) 0 % [facility] Healtheosinophils as percent of blood eaeyzupjdw3796-62-13 15:59:00* Test Item Value Reference Range Interpretation Comme nts eosinophils as percent of bl ood leukocytes (test code = 4170) 1 % [facility] Healthmonocytes as percent of blood rqpyusyxgf6399-24-27 15:59:00* Test Item Value Reference Range Interpretation Comme nts monocytes as percent of bloo d leukocytes (test code = 2421) 10 % [facility] Healthlymphocytes as percent of blood jpwibwjinl8051-49-66 15:59:00* Test Item Value Reference Range Interpretation Comme nts lymphocytes as percent of bl ood leukocytes (test code = 317) 13 % [facility] Healthneutrophils as percent of blood vhrzgwkshm1454-61-84 15:59:00* Test Item Value Reference Range Interpretation Comme nts neutrophils as percent of bl ood leukocytes (test code = 316) 73 % [facility] Centerplatelet onibq2295-04-23 15:59:00* Test Item Value Reference Range Interpretation Comme nts platelet count (test code = 66) 417 X10E3/UL 150-450 [facility] Centerred blood cell distribution pfkcx8742-99-82 15:59:00* Test Item Value Reference Range Interpretation Comme [facility] red blood cell distribution width (test code = 1030) 14.2 % 11.7-15.4 [facility] corpuscular hemoglobin concentration, [id number] 15:59:00* Test Item Value Reference Range Interpretation Comme [facility] mean corpuscular hemoglobin concentration, RBC (test code = 1029) 31.0 G/DL 31.5-35.7 L [facility] corpuscular hemoglobin, [id number] 15:59:00* Test Item Value Reference Range Interpretation Comme [facility] mean corpuscular hemoglobin, RBC (test code = 1031) 24.4 pg 26.6-33.0 L [facility] corpuscular volume, [id number] 15:59:00* Test Item Value Reference Range Interpretation Comme [facility] mean corpuscular volume, RBC (test code = 315) 79 fL 79-97 [facility] Centerhematocrit, zeohj0741-10-35 15:59:00* Test Item Value Reference Range Interpretation Comme [facility] hematocrit, blood (test code = 64) 34.8 % 34.0-46.6 [facility] Centerhemoglobin, [id number] 15:59:00* Test Item Value Reference Range Interpretation Comme [facility] hemoglobin, blood (test code = 65) 10.8 g/dL 11.1-15.9 L [facility] Centererythrocyte (RBC) wfuws6861-92-70 15:59:00* Test Item Value Reference Range Interpretation Comme [facility] erythrocyte (RBC) count (ruslan t code = 67) 4.42 X10E6/UL 3.77-5.28 [facility] Centerleukocyte count, kwdtz3698-59-85 15:59:00* Test Item Value Reference Range Interpretation Comme [facility] leukocyte count, blood (test code = 68) 12.6 X10E3/UL 3.4-10.8 H [facility] CenterHerpes Simplex Virus Zfinmsq5072-95-81 14:07:37* Test Item Value Reference Range Interpretation Comme nts Herpes Simplex Virus Genital (test code = 4258) no [facility] HospitalPOIN URINALYSIS W/O SPECIFIC [id number] 23:11:00* Test Item Value Reference Range Interpretation [...] ve Lab Interpretation (test cod e = 35630-6) Normal [facility]<14 WEEKS US [id number] 17:45:03Addendum by Guerrero Whitaker MD on 04/16/2019 12:47 PMLimited USG for dating and viability:?Single live IUP measured 10 5/7 weeks.?Will date by this USG unless clinically indicated otherwise Casie Whitaker MD?04/16/2019?12:44 PM Limited USG for dating and viability:?Single live IUP rgxzsruh98 5/7 weeks.?Will date by this USG unless clinically indicated otherwise Guerrero Whitaker MD?04/16/2019?12:44 PMUnB[facility] BudaCBC WITH DIFFERENTIAL 2019-04-14 21:44:00* Test Item Value [...] 34.1 g/dL 32-36 RDW-SD (test code = 40689-9) 37.2 fL 38.5-49 L RDW-CV (test code = 788-0) 12.5 % 11.5-14 PLT (test code = 777-3) See_Comment H [Automated messa ge] The system which generated this result transmitted reference range: 135 - 361 10*3/?L. The reference range was not used to interpret this result as normal/abnormal. MPV (test code = 36092-4) 8.8 fL 9.4-13.3 L NRBC/100 WBC (test code = 3209794944) See_Comment [Automated Neumitra ssage] The system which generated this result transmitted reference range: 0.0 - 10.0 /100 WBCs. The reference range was not used to interpret this result as normal/abnormal. NRBC x10^3 (test code = 6005960643) <0.01 See_Comment [Automated Filaoa ge] The system which generated this result transmitted reference range: 10*3/?L. The reference range was not used to interpret this result as normal/abnormal. GRAN MAT (NEUT) % (test code = 770-8) 71.3 % IMM GRAN % (test code = 9756827530) 0.40 % LYMPH % (test code = 736-9) 19.6 % MONO % (test code = 5905-5) 7.8 % EOS % (test code = 713-8) 0.5 % BASO % (test code = 706-2) 0.4 % GRAN MAT x10^3(ANC) (test code = 0373439808) 5.21 10*3/uL 1.5-10.3 IMM GRAN x10^3 (test code = 2116276762) 0.03 10*3/uL 0-0.06 LYMPH x10^3 (test code = 731-0) 1.43 10*3/uL 0.7-7.4 MONO x10^3 (test code = 742-7) 0.57 10*3/uL 0-0.5 H EOS x10^3 (test code = 711-2) 0.04 10*3/uL 0-0.4 BASO x10^3 (test code = 704-7) 0.03 10*3/uL 0-0.1 Lab Interpretation (test code = 53030-7) Abnormal [facility]<14 WEEKS US [id number] 23:55:04Limited USG for dating due to irregular periods:?transabdominal USG showed intrauterine gestationalsac with yolk sac and no pole Guerrero Whitaker MD?03/20/2019?6:54 PMUnBaylor Scott & White Medical Center – BudaGALV ONLY - VAGINAL PATHOGENS BY DNA [id number] 17:42:00* Test Item Value Reference Range Interpretation Comme nts Trichomonas vaginalis (test code = 6682178730) Negative Negative Gardnerella vaginalis (test code = 1482641129) Negative Negative Susan species (test code = 0720047445) Negative Negative Lab Interpretation (test cod e = 40342-9) Normal [facility] CenterGC & CHLAMYDIA AMPLIFIED [id number] 17:25:00* Test Item Value Reference Range Interpretation Comme nts Lab Interpretation (test cod e = 14377-1) Normal [facility] CenterADC / L[facility] - DRUG SCREEN [id number] 02:43:00* Test Item Value Reference Range Interpretation Comme nts BENZO U (test code = 4124786121) Negative Negative ELVIS U (test code = 1263905888) Negative Negative AMPHET (test code = 6687847430) Negative Negative THC (test code = 4769623619) Negative Negative METHADONE (test code = 2005658080) Negative Negative Meth U (test code = 5391796331) Negative Negative OPIATES (test code = 8110700216) Negative Negative Cocaine Metabolite (test code = 9933285873) Negative Negative PROPOXY (test code = 1759998239) Negative Negative Tric U (test code = 9925830262) Negative Negative PCP (test code = 3270518126) Negative Negative OXYCOD (test code = 7801903894) Negative Negative ARNULFO (test code = ARNULFO) [...] legal testing). Lab Interpretation (test code = 72186-9) Normal [facility] BETA HCG [id number] 17:07:00* Test Item Value Reference Range Interpretation Comme [facility] BETA HCG (test code = 1537551509) See_Comment [Automated EBIQUOUS] The system which generated this result transmitted reference range: Non- female and male patients: <5 mIU/mL. The reference range was not used to interpret this result as normal/abnormal. ARNULFO (test code = ARNULFO) Gestational Age?Range (mIU/mL)1-10?Weeks?4 [id number] Weeks?[id number] -22 Weeks?7480-16324317- 40 Weeks?1531-643152Vxo tin has been reported to cause a negative bias, interpret results relative to patient's use of biotin. [facility] URINALYSIS W/O SPECIFIC [id number] 14:40:00* Test Item Value Reference Range Interpretation [...] = 3257) N/A Negative - Negati ve [facility] CenterPOCT [id number] 14:30:00* Test Item Value Reference Range Interpretation Comme nts POCT PREG (test code = 1605) Positive On board controls acceptable with C Line (test code = 3574) Yes POCT PREG LOT # (test code = 3575) POCT PREG TEST DATE ( test code = 3576) [facility] CenterLIPID [id number] 00:00:00* Test Item Value Reference Range Interpretation Comme nts CHOLESTEROL (test code = 2210) 151 MG/DL TRIGLYCERIDES (test code = 2232) 101 MG/DL HDL CHOLESTEROL (test code = 2220) 52 MG/DL CALC LDL CHOL (test code = 2237) 79 MG/DL RISK RATIO LDL/HDL (test cod e = 2238) 1.52 RATIO LIPID [id number] 00:00:00* Test Item Value Reference Range Interpretation Comme nts CHOLESTEROL (test code = 2210) 151 MG/DL TRIGLYCERIDES (test code = 2232) 101 MG/DL HDL CHOLESTEROL (test code = 2220) 52 MG/DL CALC LDL CHOL (test code = 2237) 79 MG/DL RISK RATIO LDL/HDL (test cod e = 2238) 1.52 RATIO BASIC METABOLIC [id number] 00:00:00* Test Item Value Reference Range Interpretation Comme nts GLUCOSE (test code = 2217) 96 MG/DL BUN (test code = 2208) 9 MG/DL CREATININE (test code = 2214) 0.45 MG/DL eGFR AMER. (test code = 72389) (NOTE) ML/MIN/1.73 eGFR NON- AMER. (test code = 07739) NO CALC ML/MIN/1.73 SODIUM (test code = 2231) 142 MEQ/L POTASSIUM (test code = 2228) 4.1 MEQ/L CHLORIDE (test code = 2215) 103 MEQ/L CARBON DIOXIDE (test code = 2206) 26 MEQ/L CALCIUM (test code = 2209) 8.6 MG/DL BASIC METABOLIC [id number] 00:00:00* Test Item Value Reference Range Interpretation Comme nts GLUCOSE (test code = 2217) 96 MG/DL BUN (test code = 2208) 9 MG/DL CREATININE (test code = 2214) 0.45 MG/DL eGFR AMER. (test code = 95361) (NOTE) ML/MIN/1.73 eGFR NON- AMER. (test code = 59526) NO CALC ML/MIN/1.73 SODIUM (test code = 2231) 142 MEQ/L POTASSIUM (test code = 2228) 4.1 MEQ/L CHLORIDE (test code = 2215) 103 MEQ/L CARBON DIOXIDE (test code = 2206) 26 MEQ/L CALCIUM (test code = 2209) 8.6 MG/DL LIPID [id number] 00:00:00* Test Item Value Reference Range Interpretation Comme nts CHOLESTEROL (test code = 2210) 151 MG/DL TRIGLYCERIDES (test code = 2232) 101 MG/DL HDL CHOLESTEROL (test code = 2220) 52 MG/DL CALC LDL CHOL (test code = 2237) 79 MG/DL RISK RATIO LDL/HDL (test cod e = 2238) 1.52 RATIO LIPID [id number] 00:00:00* Test Item Value Reference Range Interpretation Comme nts CHOLESTEROL (test code = 2210) 151 MG/DL TRIGLYCERIDES (test code = 2232) 101 MG/DL HDL CHOLESTEROL (test code = 2220) 52 MG/DL CALC LDL CHOL (test code = 2237) 79 MG/DL RISK RATIO LDL/HDL (test cod e = 2238) 1.52 RATIO BASIC METABOLIC [id number] 00:00:00* Test Item Value Reference Range Interpretation Comme nts GLUCOSE (test code = 2217) 96 MG/DL BUN (test code = 2208) 9 MG/DL CREATININE (test code = 2214) 0.45 MG/DL eGFR AMER. (test code = 78426) (NOTE) ML/MIN/1.73 eGFR NON- AMER. (test code = 39601) NO CALC ML/MIN/1.73 SODIUM (test code = 2231) 142 MEQ/L POTASSIUM (test code = 2228) 4.1 MEQ/L CHLORIDE (test code = 2215) 103 MEQ/L CARBON DIOXIDE (test code = 2206) 26 MEQ/L CALCIUM (test code = 2209) 8.6 MG/DL BASIC METABOLIC [id number] 00:00:00* Test Item Value Reference Range Interpretation Comme nts GLUCOSE (test code = 2217) 96 MG/DL BUN (test code = 2208) 9 MG/DL CREATININE (test code = 2214) 0.45 MG/DL eGFR AMER. (test code = 90095) (NOTE) ML/MIN/1.73 eGFR NON- AMER. (test code = 83305) NO CALC ML/MIN/1.73 SODIUM (test code = 2231) 142 MEQ/L POTASSIUM (test code = 2228) 4.1 MEQ/L CHLORIDE (test code = 2215) 103 MEQ/L CARBON DIOXIDE (test code = 2206) 26 MEQ/L CALCIUM (test code = 2209) 8.6 MG/DL LIPID [id number] 00:00:00* Test Item Value Reference Range Interpretation Comme nts CHOLESTEROL (test code = 2210) 151 MG/DL TRIGLYCERIDES (test code = 2232) 101 MG/DL HDL CHOLESTEROL (test code = 2220) 52 MG/DL CALC LDL CHOL (test code = 2237) 79 MG/DL RISK RATIO LDL/HDL (test cod e = 2238) 1.52 RATIO BASIC METABOLIC [id number] 00:00:00* Test Item Value Reference Range Interpretation Comme nts GLUCOSE (test code = 2217) 96 MG/DL BUN (test code = 2208) 9 MG/DL CREATININE (test code = 2214) 0.45 MG/DL eGFR AMER. (test code = 02887) (NOTE) ML/MIN/1.73 eGFR NON- AMER. (test code = 67890) NO CALC ML/MIN/1.73 SODIUM (test code = 2231) 142 MEQ/L POTASSIUM (test code = 2228) 4.1 MEQ/L CHLORIDE (test code = 2215) 103 MEQ/L CARBON DIOXIDE (test code = 2206) 26 MEQ/L CALCIUM (test code = 2209) 8.6 MG/DL LIPID [id number] 00:00:00* Test Item Value Reference Range Interpretation Comme nts CHOLESTEROL (test code = 2210) 151 MG/DL TRIGLYCERIDES (test code = 2232) 101 MG/DL HDL CHOLESTEROL (test code = 2220) 52 MG/DL CALC LDL CHOL (test code = 2237) 79 MG/DL RISK RATIO LDL/HDL (test cod e = 2238) 1.52 RATIO BASIC METABOLIC [id number] 00:00:00* Test Item Value Reference Range Interpretation Comme nts GLUCOSE (test code = 2217) 96 MG/DL BUN (test code = 2208) 9 MG/DL CREATININE (test code = 2214) 0.45 MG/DL eGFR AMER. (test code = 23618) (NOTE) ML/MIN/1.73 eGFR NON- AMER. (test code = 26030) NO CALC ML/MIN/1.73 SODIUM (test code = 2231) 142 MEQ/L POTASSIUM (test code = 2228) 4.1 MEQ/L CHLORIDE (test code = 2215) 103 MEQ/L CARBON DIOXIDE (test code = 2206) 26 MEQ/L CALCIUM (test code = 2209) 8.6 MG/DL LIPID [id number] 00:00:00* Test Item Value Reference Range Interpretation Comme nts CHOLESTEROL (test code = 2210) 151 MG/DL TRIGLYCERIDES (test code = 2232) 101 MG/DL HDL CHOLESTEROL (test code = 2220) 52 MG/DL CALC LDL CHOL (test code = 2237) 79 MG/DL RISK RATIO LDL/HDL (test cod e = 2238) 1.52 RATIO BASIC METABOLIC [id number] 00:00:00* Test Item Value Reference Range Interpretation Comme nts GLUCOSE (test code = 2217) 96 MG/DL BUN (test code = 2208) 9 MG/DL CREATININE (test code = 2214) 0.45 MG/DL eGFR AMER. (test code = 25377) (NOTE) ML/MIN/1.73 eGFR NON- AMER. (test code = 84402) NO CALC ML/MIN/1.73 SODIUM (test code = 2231) 142 MEQ/L POTASSIUM (test code = 2228) 4.1 MEQ/L CHLORIDE (test code = 2215) 103 MEQ/L CARBON DIOXIDE (test code = 2206) 26 MEQ/L CALCIUM (test code = 2209) 8.6 MG/DL LIPID [id number] 00:00:00* Test Item Value Reference Range Interpretation Comme nts CHOLESTEROL (test code = 2210) 151 MG/DL TRIGLYCERIDES (test code = 2232) 101 MG/DL HDL CHOLESTEROL (test code = 2220) 52 MG/DL CALC LDL CHOL (test code = 2237) 79 MG/DL RISK RATIO LDL/HDL (test cod e = 2238) 1.52 RATIO LIPID [id number] 00:00:00* Test Item Value Reference Range Interpretation Comme nts CHOLESTEROL (test code = 2210) 151 MG/DL TRIGLYCERIDES (test code = 2232) 101 MG/DL HDL CHOLESTEROL (test code = 2220) 52 MG/DL CALC LDL CHOL (test code = 2237) 79 MG/DL RISK RATIO LDL/HDL (test cod e = 2238) 1.52 RATIO BASIC METABOLIC [id number] 00:00:00* Test Item Value Reference Range Interpretation Comme nts GLUCOSE (test code = 2217) 96 MG/DL BUN (test code = 2208) 9 MG/DL CREATININE (test code = 2214) 0.45 MG/DL eGFR AMER. (test code = 23111) (NOTE) ML/MIN/1.73 eGFR NON- AMER. (test code = 66713) NO CALC ML/MIN/1.73 SODIUM (test code = 2231) 142 MEQ/L POTASSIUM (test code = 2228) 4.1 MEQ/L CHLORIDE (test code = 2215) 103 MEQ/L CARBON DIOXIDE (test code = 2206) 26 MEQ/L CALCIUM (test code = 2209) 8.6 MG/DL BASIC METABOLIC [id number] 00:00:00* Test Item Value Reference Range Interpretation Comme nts GLUCOSE (test code = 2217) 96 MG/DL BUN (test code = 2208) 9 MG/DL CREATININE (test code = 2214) 0.45 MG/DL eGFR AMER. (test code = 29054) (NOTE) ML/MIN/1.73 eGFR NON- AMER. (test code = 95040) NO CALC ML/MIN/1.73 SODIUM (test code = 2231) 142 MEQ/L POTASSIUM (test code = 2228) 4.1 MEQ/L CHLORIDE (test code = 2215) 103 MEQ/L CARBON DIOXIDE (test code = 2206) 26 MEQ/L CALCIUM (test code = 2209) 8.6 MG/DL LIPID [id number] 00:00:00* Test Item Value Reference Range Interpretation Comme nts CHOLESTEROL (test code = 2210) 151 MG/DL TRIGLYCERIDES (test code = 2232) 101 MG/DL HDL CHOLESTEROL (test code = 2220) 52 MG/DL CALC LDL CHOL (test code = 2237) 79 MG/DL RISK RATIO LDL/HDL (test cod e = 2238) 1.52 RATIO BASIC METABOLIC [id number] 00:00:00* Test Item Value Reference Range Interpretation Comme nts GLUCOSE (test code = 2217) 96 MG/DL BUN (test code = 2208) 9 MG/DL CREATININE (test code = 2214) 0.45 MG/DL eGFR AMER. (test code = 89033) (NOTE) ML/MIN/1.73 eGFR NON- AMER. (test code = 41963) NO CALC ML/MIN/1.73 SODIUM (test code = 2231) 142 MEQ/L POTASSIUM (test code = 2228) 4.1 MEQ/L CHLORIDE (test code = 2215) 103 MEQ/L CARBON DIOXIDE (test code = 2206) 26 MEQ/L CALCIUM (test code = 2209) 8.6 MG/DL LIPID [id number] 00:00:00* Test Item Value Reference Range Interpretation Comme nts CHOLESTEROL (test code = 2210) 151 MG/DL TRIGLYCERIDES (test code = 2232) 101 MG/DL HDL CHOLESTEROL (test code = 2220) 52 MG/DL CALC LDL CHOL (test code = 2237) 79 MG/DL RISK RATIO LDL/HDL (test cod e = 2238) 1.52 RATIO LIPID [id number] 00:00:00* Test Item Value Reference Range Interpretation Comme nts CHOLESTEROL (test code = 2210) 151 MG/DL TRIGLYCERIDES (test code = 2232) 101 MG/DL HDL CHOLESTEROL (test code = 2220) 52 MG/DL CALC LDL CHOL (test code = 2237) 79 MG/DL RISK RATIO LDL/HDL (test cod e = 2238) 1.52 RATIO BASIC METABOLIC [id number] 00:00:00* Test Item Value Reference Range Interpretation Comme nts GLUCOSE (test code = 2217) 96 MG/DL BUN (test code = 2208) 9 MG/DL CREATININE (test code = 2214) 0.45 MG/DL eGFR AMER. (test code = 86021) (NOTE) ML/MIN/1.73 eGFR NON- AMER. (test code = 48438) NO CALC ML/MIN/1.73 SODIUM (test code = 2231) 142 MEQ/L POTASSIUM (test code = 2228) 4.1 MEQ/L CHLORIDE (test code = 2215) 103 MEQ/L CARBON DIOXIDE (test code = 2206) 26 MEQ/L CALCIUM (test code = 2209) 8.6 MG/DL BASIC METABOLIC [id number] 00:00:00* Test Item Value Reference Range Interpretation Comme nts GLUCOSE (test code = 2217) 96 MG/DL BUN (test code = 2208) 9 MG/DL CREATININE (test code = 2214) 0.45 MG/DL eGFR AMER. (test code = 84791) (NOTE) ML/MIN/1.73 eGFR NON- AMER. (test code = 50093) NO CALC ML/MIN/1.73 SODIUM (test code = 2231) 142 MEQ/L POTASSIUM (test code = 2228) 4.1 MEQ/L CHLORIDE (test code = 2215) 103 MEQ/L CARBON DIOXIDE (test code = 2206) 26 MEQ/L CALCIUM (test code = 2209) 8.6 MG/DL Notes Date/Time Note Provider Source 2024-02-07 23:38:17 [id number]:38:17F ormatting of this note might be different from the original.PT ELOPE PRIOR TO DISPO. LAST SEEN IN STABLE CONDITION, AOx4, NO ATAXIA NOTED. PT DID NOT SIGN AMA PAPERS. PER REGISTRATION PT STATES "IM NOT WAITING HERE ALL NIGHT." PT THEN THROWS IDENTIFICATION BAND INTO TRASH AND ELOPES FROM DEPARTMENT. [id number] department [id number]:41:18[facility] [id number] for patient [id number] d C-CDA narrative [id number] R Potter RNUT[id number] [id number] T23:41:[id number]| [id number] Catalina Ervin RN [facility] 2024-02-07 22:20:12 [id number]:20:12F ormatting of this note might be different from the original.Pt arrives ambulatory to ED c/o tooth pain that began yesterday. She reports she can't eat or drink anything and since she is 15 weeks she is not able to take anything that helps the pain. [id number] department Triage [id number]:23:32[facility] Triage [id number] for patient [id number] department NoteLNNARRATIVEFormatted C-CDA narrative text[id number] [id number] T22:23:[id number]| [id number] [facility]
--- NOTE | 2024-02-09 22:35 | RAD REPORT ---
EXAM DESCRIPTION: US - OB Limited - 02/09/2024 10:20 pm CLINICAL HISTORY: with vaginal bleeding FINDINGS: A single live intrauterine is in cephalic presentation. The placenta is posterio r. No subchorionic/ retroplacental bleed The amniotic fluid is within normal limits. Cardiac activity 138 beats per minute. The cervix 3.4 centimeters. FL 1.8 centimeters 15 weeks 3 days Estimated gestational age current The right and left adnexa unremarkable IMPRESSION: A single live intrauterine in cephalic presentation The estimated gestational age 15 weeks 3 days JONAS 07/30/2024 If a survey is desired it should be performed in approximately 3 weeks
[2024-02-09 23:40] LABS: Absolute Eosinophils 0.1 K/uL (0-0.5); Absolute Lymphocytes (CBC) 2.5 K/uL (0.7-4.9); Absolute Monocytes 0.6 K/uL (0.1-1.3); Absolute Neutrophil 6.5 K/uL (1.8-8.0); Basophils % 0.2 % (0-1.3); Eosinophils % 0.6 % (0-4.4); Hematocrit 37.1 % (36.0-45.0); Hemoglobin 12.7 g/dL (12.0-15.0); MCH 28.9 pg (27.0-35.0); MCHC 34.3 g/dL (32.0-36.0); MCV 84.4 fL (80-100); MPV 6.8 fL (7.6-11.3); Monocytes % 6.1 % (3.3-12.3); Neutrophils % 67.1 % (41.7-73.7); Nucleated Red Blood Cells % 0.1 % (0-0); Platelets 471 thou/uL (152-406); Red Cell Distribution Width 13.4 % (12.1-15.2)
[2024-02-09 23:49] LABS: Specific Gravity 1.019 (1.005-1.030); Urine Bacteria <20 /HPF (<20); Urine Bilirubin NEGATIVE (Negative); Urine Blood Negative (Negative); Urine Clarity Extremely Turbid (Clear); Urine Color Light-Yellow (Yellow); Urine Culture Reflex Order REFLEXED; Urine Glucose NEGATIVE (Negative); Urine Ketones NEGATIVE (Negative); Urine Micro Reflex YN NO BILL MICROSCOPIC; Urine Mucus Slight /HPF (None Seen); Urine Nitrite NEGATIVE (Negative); Urine Protein NEGATIVE (Negative); Urine RBC <5 /HPF (None Seen); Urine Urobilinogen Normal (Normal)
[2024-02-10 00:13] LABS: ALT/SGPT 15 U/L (13-56); Albumin/Globulin Ratio 0.8 (1.1-1.8); Alkaline Phosphatase 57 U/L (45-117); Anion Gap 8.6 mEq/L (5.0-15.0); BUN Blood Urea Nitrogen 7 mg/dL (7-18); Bicarbonate 26 mEq/L (21-32); Bilirubin Total 0.2 mg/dL (0.2-1.0); Glomerular Filtration Rate 135 ml/min (=/>90); Glucose Level 91 mg/dL (74-106); HCG, Quantitative 33349 mIU/mL (1-3); Potassium 3.6 mEq/L (3.5-5.1); Sodium Level 135 mEq/L (136-145)
[2024-02-10 00:15] LABS: AST/SGOT < 10 U/L (15-37)
--- NOTE | 2024-02-10 00:29 | EDPHYS ---
Physician Documentation [facility] Name: Altagracia Yu Age: 18 yrs Sex: Female : 2005 Arrival Date: 02/09/2024 Time: 21:51 Bed 25 Private MD: ED Physician Aashish Brewster HPI: 02/08 23:03 This 18 yrs old Female presents to ER via Ambulatory with complaints of Vaginal ec2 Bleeding - 15wks preg. 23:03 Patient arrives today for evaluation of vaginal spotting as well as abdominal ec2 discomfort in setting of 15 weeks of . . 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 - Infectious Disease History:: Denies. - Social history:: Smoking status: Reported history of juuling and/or vaping. ROS: 23:03 Constitutional: as per hpi ec2 Exam: 23:03 Constitutional: GEN: NAD Head: atraumatic Eyes: EOMI Ears: External ears are ec2 normal. CV: regular rate LUNGS: no respiratory distress ABD: non-distended SKIN: no evidence of rashes MSK: no evidence of trauma NEURO: moves all extremities equally Vital Signs: 22:48 BP 111 / 68; Pulse 81; Resp 16; Temp 97.7; Pulse Ox 100% ; Weight 105.23 kg; Height 5 bm8 ft. 5 in. ; Pain 9/10; 02/09 00:57 BP 109 / 61; Pulse 76; Resp 17 S; Temp 97.4(O); Pulse Ox 100% on R/A; lg3 02/08 22:48 Body Mass Index 38.61 (105.23 kg, 165.1 cm) bm8 02/08 22:48 Pain Scale: Adult bm8 MDM: 02/08 22:04 Patient medically screened. ec2 23:03 Data reviewed: vital signs. ED course: Patient arrives today for vaginal bleeding in ec2 setting of . Examination remarkable for nontoxic hemodynamically stable individuals otherwise in no acute distress with a reassuring examination. Ultrasound obtained that shows no evidence of miscarriage, 15-week viable noted. Pending lab work.. 02/09 00:24 ED course: Patient with reassuring labs. 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 Return precautions given.. 02/08 22:05 Order name: CBC with Diff; Complete Time: 23:59 ec2 02/08 22:05 Order name: CMP; Complete Time: 00:24 ec2 02/08 22:05 Order name: Abo/rh Typing; Complete Time: 00:24 ec2 02/08 22:05 Order name: HCG-Quantitative; Complete Time: 00:24 ec2 02/08 23:09 Order name: Urine W/Microscopic (UAM); Complete Time: 23:59 lg3 02/09 00:03 Order name: Urine Culture EDMS 02/08 22:21 Order name: OB Limited; Complete Time: 23:03 EDMS Administered Medications: 00:46 Drug: Cephalexin PO Suspension 500 mcg PO once Route: PO; lg3 00:46 Follow up: Response: No adverse reaction lg3 Disposition Summary: 02/10/24 00:29 Discharge Ordered Notes: Location: Home ec2 Condition: Stable ec2 Diagnosis - 15 weeks gestation of ec2 - UTI/ Urinary tract infection, site not specified ec2 Followup: ec2 - With: Private Physician - When: - Reason: Re-evaluation by your physician Discharge Instructions: - Discharge Summary Sheet ec2 - Urinary Tract Infection, Adult, Gdpv-sm-Ybnb ec2 - Vaginal Bleeding During , First Trimester, Aqbr-kn-Htzx ec2 Forms: - Family Work Release lg3 - Medication Reconciliation Form ec2 - Antibiotic Education ec2 - Prescription Opioid Use ec2 - Patient Portal Instructions ec2 - Leadership Thank You Letter ec2 Prescriptions: - Cephalexin 500 mg Oral capsule - take 1 capsule ORAL route every 12 hours for 5 days; 10 capsule; Refills: 0, ec2 Product Selection Permitted Signatures: Dispatcher [employer] Asmita Burciaga RN RN lg3 Aashish Brewster MD MD ec2 Soham Pak RN RN bm8 Corrections: (The following items were deleted from the chart) 02/08 22:05 22:05 CBC+H.LAB.BRZ ordered. EDMS EDMS 22: 22:05 COMPREHENSIVE METABOLIC PANEL+C.LAB.BRZ ordered. EDMS EDMS 22: 22:05 ABO/RH TYPING+BB.LAB.BRZ ordered. EDMS EDMS 22: 22:05 QUANTITATIVE HCG+C.LAB.BRZ ordered. EDMS EDMS 22: 22:05 Transvaginal Ob+US.RAD.BRZ ordered. EDMS EDMS
--- NOTE | 2024-02-10 00:29 | ER ---
Nurse's Notes [facility] Name: Altagracia Yu Age: 18 yrs Sex: Female : 2005 Arrival Date: 02/09/2024 Time: 21:51 Bed 25 Private MD: Diagnosis: 15 weeks gestation of ;UTI/ Urinary tract infection, site not specified Presentation: 02/08 22:48 Chief complaint: Patient states: I have been having vaginal spotting while for bm8 2 weeks, with cramping. I have just been dealing with the pain but the baby wont move from the spot that hurts. Coronavirus screen: At this time, the client does not indicate any symptoms associated with coronavirus-19. Ebola Screen: Patient negative for fever greater than or equal to 101.5 degrees Fahrenheit, and additional compatible Ebola Virus Disease symptoms Patient denies exposure to infectious person. Patient denies travel to an Ebola-affected area in the 21 days before illness onset. No symptoms or risks identified at this time. Initial Sepsis Screen: Does the patient meet any 2 criteria? No. Patient's initial sepsis screen is negative. Does the patient have a suspected source of infection? No. Patient's initial sepsis screen is negative. Risk Assessment: Do you want to hurt yourself or someone else? Patient reports no desire to harm self or others. Onset of symptoms was January 28, 2024 at 08:00. 22:48 Method Of Arrival: Ambulatory bm8 22:48 Acuity: KARMEN 3 bm8 Triage Assessment: 22:50 General: Appears in no apparent distress. uncomfortable, Behavior is calm, cooperative, bm8 appropriate for age. Pain: Complains of pain in suprapubic area Pain radiates to abdomen Pain currently is 9 out of 10 on a pain scale. Neuro: No deficits noted. Level of Consciousness is awake, alert, obeys commands, Oriented to person, place, time, situation, Appropriate for age. Cardiovascular: Denies chest pain, lightheadedness, shortness of breath. Respiratory: No deficits noted. Airway is patent Trachea midline Respiratory effort is even, unlabored, Respiratory pattern is regular, symmetrical. GI: Reports lower abdominal pain, Pain is 9 out of 10 on a pain scale. : Reports vaginal bleeding that is spotty, and 15 weeks . 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 - Infectious Disease History:: Denies. - Social history:: Smoking status: Reported history of juuling and/or vaping. Screenin/25 00:54 [facility] ED Fall Risk Assessment (Adult) History of falling in the last 3 months, lg3 including since admission No falls in past 3 months (0 pts) Confusion or Disorientation No (0 pts) Intoxicated or Sedated No (0 pts) Impaired Gait No (0 pts) Mobility Assist Device Used No (0 pt) Altered Elimination No (0 pt) Score/Fall Risk Level 0 - 2 = Low Risk Oriented to surroundings, Maintained a safe environment, Educated pt \T\ family on fall prevention, incl call for assistance when getting out of bed, Assessed \T\ reinforced patient's understanding of fall precautions. Abuse screen: Denies threats or abuse. Denies injuries from another. Nutritional screening: No deficits noted. Tuberculosis screening: No symptoms or risk factors identified. Assessment: 00:54 General: Appears in no apparent distress. comfortable, Behavior is calm, cooperative. lg3 Pain: Complains of pain in suprapubic area. Neuro: No deficits noted. Alba Agitation-Sedation Scale (RASS): 0 - Alert and Calm Level of Consciousness is awake, alert, obeys commands, Oriented to person, place, time, situation. Cardiovascular: No deficits noted. Denies chest pain, shortness of breath, Capillary refill < 3 seconds Clubbing of nail beds is absent JVD is absent Patient's skin is warm and dry. Respiratory: No deficits noted. Airway is patent Respiratory effort is even, unlabored, Respiratory pattern is regular, symmetrical. GI: Abdomen is round non-distended, obese, Reports lower abdominal pain, cramping. : No deficits noted. Reports cramping, vaginal bleeding that is spotty. EENT: No deficits noted. No signs and/or symptoms were reported regarding the EENT system. Derm: No deficits noted. No signs and/or symptoms reported regarding the dermatologic system. Skin is intact, is healthy with good turgor, Skin is dry, Skin is normal, Skin temperature is warm. Musculoskeletal: No deficits noted. No signs and/or symptoms reported regarding the musculoskeletal system. Circulation, motion, and sensation intact. Range of motion: intact in all extremities. Vital Signs: 02/08 22:48 BP 111 / 68; Pulse 81; Resp 16; Temp 97.7; Pulse Ox 100% ; Weight 105.23 kg; Height 5 bm8 ft. 5 in. ; Pain 9/10; 02/09 00:57 BP 109 / 61; Pulse 76; Resp 17 S; Temp 97.4(O); Pulse Ox 100% on R/A; lg3 02/08 22:48 Body Mass Index 38.61 (105.23 kg, 165.1 cm) bm8 02/08 22:48 Pain Scale: Adult 8 ED Course: 02/08 21:54 Patient arrived in ED. rv1 22:04 Aashish Brewster MD is Attending Physician. ec2 22:21 OB Limited In Process Unspecified. EDMS 22:50 Triage completed. bm8 22:50 Arm band placed on left wrist. bm8 23:22 Inserted saline lock: 20 gauge in right antecubital area, using aseptic technique. rc3 Blood collected. 23:22 HCG-Quantitative Sent. rc3 23:22 Abo/rh Typing Sent. rc3 23:22 CMP Sent. rc3 23:22 CBC with Diff Sent. rc3 23:22 Urine W/Microscopic (UAM) Sent. rc3 02/09 00:54 Patient has correct armband on for positive identification. Placed in gown. Bed in low lg3 position. Call light in reach. Side rails up X 1. Client placed on continuous cardiac and pulse oximetry monitoring. NIBP monitoring applied. air sampling and monitoring on. Door closed. Noise minimized. Warm blanket given. Pillow given. Family accompanied patient. 00:54 No provider procedures requiring assistance completed. IV discontinued, intact, lg3 bleeding controlled, No redness/swelling at site. Pressure dressing applied. Administered Medications: 00:46 Drug: Cephalexin PO Suspension 500 mcg PO once Route: PO; lg3 00:46 Follow up: Response: No adverse reaction lg3 Medication: 00:54 VIS not applicable for this client. lg3 Outcome: 00:29 Discharge ordered by . ec2 00:54 Discharged to home ambulatory, lg3 00:54 Condition: stable 00:54 Discharge instructions given to patient, Instructed on discharge instructions, follow up and referral plans. medication usage, Demonstrated understanding of instructions, follow-up care, medications, Prescriptions given X 1, 00:59 Patient left the ED. lg3 Signatures: Dispatcher [employer] Asmita Burciaga, RN RN lg3 Joycelyn Landaverde rv1 Aashish Brewster MD MD ec2 Joycelyn Reed3 Soham Pak, RN RN bm8
[2024-02-10] MEDS ORDERED: CEPHALEXIN 250 MG CAP ONE (00:34)
[2024-02-10 06:46] VITALS: BP 109/61; TEMP 97.4; O2SAT 100
== END 2024-02-10 00:59 | disposition home or self-care (01) ==
LOC: ER 21:51
DX: O23.42 Unspecified infection of urinary tract in pregnancy, second trimester (principal); N39.0 Urinary tract infection, site not specified; Z3A.15 15 weeks gestation of pregnancy; Z88.0 Allergy status to penicillin; Z88.6 Allergy status to analgesic agent
CPT/HCPCS: 36415; 76815; 80053; 81001; 84702; 85025; 86900; 86901; 87086; 87088

== ENCOUNTER 2024-06-07 15:09 | Emergency (ER) | payer OTHER ==
--- OUTSIDE RECORDS SUMMARY | 2024-06-07 15:13 | XMS REPORT | Continuity of Care Document ---
Author Name Unknown Address [address] [place] [address] [facility] thconnect Address 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 Name Role Phone LATOYA MOJICA Primary Care Physician Unavailab LASHONDA Alba Attending Clinician Unavaila CAROLE Renner Attending Clinician Unavailable GUERRERO WHITAKER Attending Clinician Unavailable GUERRERO WHITAKER Attending Clinician Unavailable Guerrero Whitaker MD Attending Clinician [phone] Lashonda Santos CNM Attending Clinician [phone] KHANH WHELAN Attending Clinician Unavail able Mamadou MICHAELS Attending Clinician Unavailable Mamadou Braswell Attending Clinician [phone] ANSELMO KELLEY Attending Clinician Unavailable Doctor Unassigned, [place] Attending Clinician U JANNA Vernon Attending Clinician Unavailable Janna Bonilla PA-C Attending Clinician [phone] GUILLERMINA GILL Attending Clinician Unavailable 1, [facility] Attending Clinician Unavailable GUERRERO WHITAKER Admitting Clinician Unavailable Guerrero Whitaker MD Admitting Clinician [phone] Payers Payer Name Policy Type Policy Number Effective Date Expirati on Date Source [employer] [place] [id number] 2024 00:00:00 GREG WATERS [id number] 2024 00:00:00 [facility] [id number] 2018 00:00:00 Problems Condition Name Condition Details Condition Category Status Onset Date Resolution Date Last Treatment Date Treating Clinician Comments Source Chlamydia infection affecting Chlamydia infection affecting Disease Active 2023-08 0-17 00:00: 00 [facility] Anemia of mother in , antepartum Anemia of mother in , antepartum Disease Active 2023-08 0-16 00:00: 00 [facility] Poor historian Poor historian Disease Active 2023-08 0-16 00:00: 00 [facility] Flu vaccine refused Flu vaccine refused Disease Active 2023-08 0-16 00:00: 00 [facility] Rubella non-immune status, antepartum Rubella non-immune status, antepartum Disease Active 2023-08 0-16 00:00: 00 [facility] Maternal varicella, non-immune Maternal varicella, non-immune Disease Active 2023-08 0-16 00:00: 00 [facility] History of anxiety and depression History of anxiety and depression Disease Active 2023-08 0-15 00:00: 00 [facility] Obesity affecting in third trimester Obesity affecting in third trimester Disease Active 2023-08 0-15 00:00: 00 [facility] Late care Late care Disease Active 2023-08 0-15 00:00: 00 [facility] Current every day vaping Current every day vaping Disease Active 2023-08 0-15 00:00: 00 [facility] 28 weeks gestation of 28 weeks gestation of Disease Active 2018-08 00:00: 00 [facility] Round ligament pain Round ligament pain Disease Resolve d 09-17 00:00: 00 2024-06-01 00:00:00 2024-06-01 13:43:00 [facility] 32 weeks gestation of 32 weeks gestation of Disease Resolve d 2018-08 00:00: 00 2024-06-01 00:00:00 2024-06-01 13:43:02 [facility] Supervisio n of high risk in third trimester Supervisio n of high risk in third trimester Disease Resolve d 2018-08 00:00: 00 2024-06-01 00:00:00 2024-06-01 13:43:01 [facility] Uterine size-date discrepanc y in third trimester Uterine size-date discrepanc y in third trimester Disease Resolve d 2018-08 00:00: 00 2024-06-01 00:00:00 2024-06-01 13:42:59 [facility] Need for Tdap vaccinatio n Need for Tdap vaccinatio n Disease Resolve d 2018-08 00:00: 00 2024-06-01 00:00:00 2024-06-01 13:43:06 [facility] Allergies, Adverse Reactions, Alerts Allergy Name Allergy Type Status Severity Reaction(s) Onset Date Inactive Date Treating Clinician Comments Source PENICILL IN DRUG INGREDI Active Hives 02-06 00:00: 00 [facility] Penicill in Propensi ty to adverse reaction s Active Hives 02-06 00:00: 00 [facility] ASPIRIN DRUG INGREDI Active ITCHING 03-17 00:00: 00 [facility] Aspirin Propensi ty to adverse reaction s Active Swelling 03-17 00:00: 00 [facility] Social History Social Habit Start Date Stop Date Quantity Comments Source ASSERTION 2023-11-27 00:00:00 [facility] SDOH Alcohol Std Drinks [facility] History SDOH Alcohol Binge [facility] Tobacco use and exposure 2024-06-01 00:00:00 2024-06-01 00:00:00 Former smokeless tobacco user [facility] Alcoholic beverage intake 2024-06-01 00:00:00 2024-06-01 00:00:00 Lifetime non-drinker (finding) [facility] History of Social function 2024-06-01 00:00:00 2024-06-01 00:00:00 [facility] Tobacco Comment 2024-06-01 00:00:00 2024-06-01 00:00:00 Vapes [facility] Alcohol intake 2019-09-17 00:00:2019-09-17 00:00:00 [facility] History SDOH Alcohol Frequency 2019-03-17 00:00:00 2019-03-17 00:00:00 1 [facility] History of tobacco use 2019-03-07 00:00:00 Chews Tobacco [facility] Sex assigned at 2005 00:00:00 2005 00:00:00 [facility] Smoking Status Start Date Stop Date Source Never smoked tobacco [facility] Medications Ordered Medication Name Filled Medication Name Start Date Stop Date Current Medication? Ordering Clinician Indication Dosage Frequency Signature (SIG) Comments Components Source azithromyci n (ZITHROMAX) 500 mg tablet 2023-08 00:00: 00 06-04 04:59 :00 Yes [id number] 01 1000mg Take 2 tablets by mouth once now for 1 dose. [facility] Iron Fum & P-FA-Vit B & C No.9 (INTEGRA PLUS) 125 mg iron- 1 mg Cap 2023-08 00:00: 00 Yes [id number] 1{capsu le} Take 1 capsule by mouth in the morning. [facility] PNV 67-iron ps-folate no.1-dha (VITAFOL ULTRA) 29 mg iron- 1 mg-200 mg Cap 03-20 00:00: 00 Yes [id number] Take 1 TAB-CAP/M2 by mouth daily. [facility] PNV 67-iron ps-folate no.1-dha (VITAFOL ULTRA) 29 mg iron- 1 mg-200 mg Cap 03-20 00:00: 00 Yes [id number] Take 1 TAB-CAP/M2 by mouth daily. [facility] No known medications No Un adrian [facility] No known medications No Un adrian [facility] Immunizations Ordered Immunization Name Filled Immunization Name Date Status Comments Source TDAP 2024-06-01 00:00:00 Completed [facility] TDAP (ADACEL) VACCINE 2019-08-17 00:00:00 Completed [facility] TDAP (ADACEL) VACCINE 2019-08-17 00:00:00 Completed [facility] TDAP (ADACEL) VACCINE 2019-08-17 00:00:00 Completed [facility] TDAP (ADACEL) VACCINE 2019-08-17 00:00:00 Completed [facility] TDAP (ADACEL) VACCINE 2019-08-17 00:00:00 Completed Influenza Virus Vaccine Quad .5 mL IM 6+ MO 2019-06-14 00:00:00 Completed [facility] Influenza Virus Vaccine Quad .5 mL IM 6+ MO 2019-06-14 00:00:00 Completed [facility] Influenza Virus Vaccine Quad .5 mL IM 6+ MO 2019-06-14 00:00:00 Completed [facility] Influenza Virus Vaccine Quad .5 mL IM 6+ MO 2019-06-14 00:00:00 Completed [facility] Influenza Virus Vaccine Quad .5 mL IM 6+ MO (FLUZONE/FLULAVAL/F LUARIX) 2019-06-14 00:00:00 Completed [facility] Influenza Virus Vaccine Quad .5 mL IM 6+ MO (FLUZONE/FLULAVAL/F LUARIX) Unknown Completed [facility] TDAP (ADACEL) VACCINE Unknown Completed [facility] Vital Signs Vital Name Observation Time Observation Value Comments S ource Systolic blood pressure 2024-06-04 09:30:00 118 mm[Hg[facility] Diastolic blood pressure 2024-06-04 09:30:00 72 mm[Hg] [facility] Heart rate 2024-06-04 09:30:00 87 /min [facility] Oxygen saturation in Arterial blood by Pulse oximetry 2024-06-04 09:30:00 96 /min [facility] Respiratory rate 2024-06-04 09:00:00 19 /min [facility] Body temperature 2024-06-04 06:22:00 36.83 Vicky [facility] Body height 2024-06-04 06:00:00 165.1 cm [facility] Body weight 2024-06-04 06:00:00 117.028 kg [facility] BMI 2024-06-04 06:00:00 42.93 kg/m2 [facility] Systolic blood pressure 2024-06-01 18:05:00 115 mm[Hg] [facility] Diastolic blood pressure 2024-06-01 18:05:00 73 mm[Hg] [facility] Heart rate 2024-06-01 18:05:00 98 /min [facility] Body temperature 2024-06-01 18:05:00 36.61 Vicky [facility] Respiratory rate 2024-06-01 18:05:00 18 /min [facility] Body height 2024-06-01 18:05:00 165.1 cm [facility] Body weight 2024-06-01 18:05:00 117.845 kg [facility] BMI 2024-06-01 18:05:00 43.23 kg/m2 [facility] Systolic blood pressure 2024-02-08 03:23:00 143 mm[Hg] [facility] Diastolic blood pressure 2024-02-08 03:23:00 82 mm[Hg] [facility] Heart rate 2024-02-08 03:23:00 93 /min [facility] Body temperature 2024-02-08 03:23:00 37.39 Vicky [facility] Respiratory rate 2024-02-08 03:23:00 21 /min [facility] Body height 2024-02-08 03:23:00 165.1 cm [facility] Body weight 2024-02-08 03:23:00 106.641 kg [facility] BMI 2024-02-08 03:23:00 39.12 kg/m2 [facility] Oxygen saturation in Arterial blood by Pulse oximetry 2024-02-08 03:23:00 100 /min [facility] Systolic blood pressure 2019-08-31 23:06:00 93 mm[Hg] [facility] Diastolic blood pressure 2019-08-31 23:06:00 64 mm[Hg] [facility] Heart rate 2019-08-31 23:06:00 90 /min [facility] Body temperature 2019-08-31 23:06:00 36.39 Vicky [facility] Respiratory rate 2019-08-31 23:06:00 18 /min [facility] Body height 2019-08-31 23:06:00 160 cm [facility] Body weight 2019-08-31 23:06:00 101.606 kg [facility] BMI 2019-08-31 23:06:00 39.68 kg/m2 [facility] Systolic blood pressure 2019-04-14 19:00:00 117 mm[Hg] [facility] Diastolic blood pressure 2019-04-14 19:00:00 70 mm[Hg] [facility] Heart rate 2019-04-14 19:00:00 79 /min [facility] Body temperature 2019-04-14 19:00:00 36.89 Vicky [facility] Respiratory rate 2019-04-14 19:00:00 18 /min [facility] Body height 2019-04-14 19:00:00 160 cm [facility] Body weight 2019-04-14 19:00:00 87.544 kg [facility] BMI 2019-04-14 19:00:00 34.19 kg/m2 [facility] Systolic blood pressure 2019-03-17 14:24:00 112 mm[Hg] [facility] Diastolic blood pressure 2019-03-17 14:24:00 70 mm[Hg] [facility] Heart rate 2019-03-17 14:24:00 77 /min [facility] Body temperature 2019-03-17 14:24:00 36.83 Vicky [facility] Respiratory rate 2019-03-17 14:24:00 18 /min [facility] Body height 2019-03-17 14:24:00 160 cm [facility] Body weight 2019-03-17 14:24:00 90.266 kg [facility] BMI 2019-03-17 14:24:00 35.25 kg/m2 [facility] Procedures Procedure Date / Time Performed Performing Clinician Source URINALYSIS 2024-06-04 06:44:00 Guerrero Whitaker [facility] ADC CLC OR LCC ONLY - WET PREP 2024-06-04 06:44:00 Guerrero Whitaker [facility] GLUCOSE 1 HOUR POST PRANDIAL 2024-06-01 19:14:00 Lashonda Santos [facility] CBC WITH DIFF 2024-06-01 19:14:00 Lashonda Santos [facility] HEPATITIS B SURFACE ANTIGEN 2024-06-01 19:14:00 Lashonda Santos [facility] HCV ANTIBODY 2024-06-01 19:14:00 [facility] INDIRECT ANTIGLOBULIN TEST 2024-06-01 19:14:00 Lashonda Santos [facility] HIV 1/2 AG-AB WITH REFLEX 2024-06-01 19:14:00 Lashonda Santos [facility] TDAP VACCINE, >11 YRS, IM 2024-06-01 18:45:16 Lashonda Santos [facility] POCT TEST 2024-06-01 00:00:00 Maddy Santos [facility] POCT URINALYSIS W/O SPECIFIC GRAVITY 2024-06-01 00:00:00 Lashonda Santos [facility] CONSENT/REFUSAL FOR DIAGNOSIS AND TREATMENT 2019-10-25 05:01:00 Doctor Unassigned, [place] [facility] POCT URINALYSIS W/O SPECIFIC GRAVITY 2019-08-31 00:00:00 Janna Bonilla [facility] <14 WEEKS US LIMITED 2019-04-16 17:44:02 Guerrero Whitaker [facility] CBC WITH DIFFERENTIAL 2019-04-14 21:36:00 Guerrero Whitaker [facility] ASSIGNMENT OF BENEFITS 2019-04-14 20:00:31 Docto r Unassigned, [place] [facility] <14 WEEKS US LIMITED 2019-03-20 23:54:07 Guerrero Whitaker [facility] TOTAL BETA HCG ASSAY 2019-03-17 15:19:00 Guerrero Whitaker [facility] GC & CHLAMYDIA AMPLIFIED ASSAY 2019-03-17 14:53:00 Guerrero Whitaker [facility] GALV ONLY - VAGINAL PATHOGENS BY DNA PROBE 2019-03-17 14:53:00 Guerrero Whitaker [facility] ADC / LCC - DRUG SCREEN TRIAGE 2019-03-17 14:53:00 Guerrero Whitaker [facility] POCT TEST 2019-03-17 00:00:00 Guerrero Whitaker [facility] POCT URINALYSIS W/O SPECIFIC GRAVITY 2019-03-17 00:00:00 Guerrero Whitaker [facility] Encounters Start Date/Time End Date/Time Encounter Type Admission Type Attending [facility] Facility Care Department Encounter ID Source 2024-06-04 04:57:59 Outpatient X [facility] [id number] [facility] 2024-06-04 01:03:00 2024-06-04 04:45:00 Outpatient X JULIANNE GUERRERO LEES [facility] [id number] [facility] 2024-06-04 01:03:00 2024-06-04 04:45:00 Emergency Guerrero Whitaker [facility] 1.2.840.114 350.1.13.10 4.2.7.2.686 [id number] [facility] 2024-06-03 00:00:00 2024-06-03 13:29:05 Telephone Lashonda Santos [facility] MACHINE OPERATOR HELPER [facility] [id number] 350.1.13.10 4.2.7.2.686 [id number] [facility] 2024-06-02 00:00:00 2024-06-02 08:24:06 Telephone Lashonda Santos [facility] MACHINE OPERATOR HELPER [facility] & [facility]ILD [facility] 1.2.840.114 350.1.13.10 4.2.7.2.686 [id number] [facility] 2024-06-01 12:45:00 2024-06-01 14:40:38 Outpatient R LASHONDA SANTOS [facility] [id number] [facility] 2024-06-01 12:45:00 2024-06-01 14:40:38 Initial Visit Chel Lashonda Gilda [facility] MACHINE OPERATOR [facility] 1..840.114 350.1.13.10 4.2.7.2.686 [id number] [facility] 2024-05-27 12:15:00 2024-05-27 12:15:00 Outpatient R LASHONDA SANTOS [facility] [id number] [facility] 2024-02-09 09:15:00 2024-02-09 09:15:00 Outpatient R KHANH WHELAN [facility] [id number] [facility] 2024-02-07 22:27:00 2024-02-07 23:41:00 Emergency X Mamadou MICHAELS [facility] E[facility] [id number] [facility] 2024-02-07 22:27:00 2024-02-07 23:41:00 Emergency Mamadou Michaels [facility] 1.840.114 350.1.13.10 4.2.7.2.686 [id number] [facility] 2023-12-18 14:30:00 2023-12-18 14:30:00 Outpatient R ANSELMO KELLEY [facility] [id number] [facility] 2023-12-12 14:00:00 2023-12-12 14:00:00 Outpatient R ANSELMO KELLEY [facility] [id number] [facility] 2019-11-17 00:00:00 2019-11-17 00:00:00 Telephone Guerrero Whitaker [facility] Professio [facility] 1.840.114 350.1.13.10 4.2.7.2.686 [id number] [facility] 2019-10-25 00:00:00 2019-10-25 00:00:00 Orders Only Doctor Unassigned, [place] [facility] 1.2840.114 350.1.13.10 4.2.7.2.686 [id number] [facility] 2019-09-30 15:00:00 2019-09-30 15:00:00 Outpatient R JANNA BONILLA [facility] [id number] [facility] 2019-09-16 00:00:00 2019-09-16 00:00:00 Letter (Out) Janna Bonilla [facility] 1.2840.114 350.1.13.10 4.2.7.2.686 [id number] [facility] 2019-08-31 16:27:53 2019-08-31 16:42:53 Routine Visit Janna Bonilla [place] [facility] Building 1.2840.114 350.1.13.10 4.2.7.2.686 [id number] [facility] 2019-08-27 15:00:00 2019-08-27 18:05:33 Outpatient P GUILLERMINA GILL [facility] [id number] [facility] 2019-05-03 00:00:00 2019-05-03 00:00:00 Case Management Guerrero Whitaker [facility] Building 1.284.114 350.1.13.10 4.2.7.2.686 [id number] [facility] 2019-04-21 00:00:00 2019-04-21 00:00:00 Case Management Guerrero Whitaker [facility] Building 1.2840.114 350.1.13.10 4.2.7.2.686 [id number] [facility] 2019-04-21 00:00:00 2019-04-21 00:00:00 Telephone Guerrero Whitaker [facility] nal [facility] 1.2840.114 350.1.13.10 4.2.7.2.686 [id number] [facility] 2019-04-20 00:00:00 2019-04-20 00:00:00 Telephone Guerrero Whitaker [facility] Building 1.2.840.114 350.1.13.10 4.2.7.2.686 [id number] [facility] 2019-04-14 15:00:27 2019-04-14 15:15:27 Station Worker Visit 1, Adc Lab Guerrero Whitaker [facility] 1.2840.114 350.1.13.10 4.2.7.2.686 [id number] [facility] 2019-04-14 15:00:00 2019-04-14 15:00:00 Outpatient R GUERRERO WHITAKER [facility] [id number] [facility] 2019-04-14 13:41:25 2019-04-14 14:43:27 Routine Visit Guerrero Whitaker [facility] 1.2840.114 350.1.13.10 4.2.7.2.686 [id number] [facility] 2019-04-14 00:00:00 2019-04-14 00:00:00 Letter (Out) Guerrero Whitaker [facility] 1.2840.114 350.1.13.10 4.2.7.2.686 [id number] [facility] 2019-04-14 00:00:00 2019-04-14 00:00:00 Orders Only Doctor Unassigned, [place] [facility] 1.2.840.114 350.1.13.10 4.2.7.2.686 [id number] [facility] 2019-04-07 00:00:00 2019-04-07 00:00:00 Telephone Guerrero Whitaker [facility] Building 1.2.840.114 350.1.13.10 4.2.7.2.686 [id number] [facility] 2019-04-01 00:00:00 2019-04-01 00:00:00 Telephone Guerrero Whitaker [facility] 1.2.840.114 350.1.13.10 4.2.7.2.686 [id number] [facility] 2019-03-17 10:12:58 2019-03-24 08:59:00 Station Worker Visit 1, Adc Lab Guerrero Whitaker [facility] 1.2.840.114 350.1.13.10 4.2.7.2.686 [id number] [facility] 2019-03-17 10:15:00 2019-03-17 10:15:00 Outpatient R GUERRERO WHITAKER [facility] [id number] [facility] 2019-03-17 08:58:48 2019-03-17 10:02:46 Initial Visit Guerrero Whitaker [place] [facility] 1.2.840.114 350.1.13.10 4.2.7.2.686 [id number] [facility] Results Test Description Test Time Test Comments Results Result Co mments Source [facility] [id number] 08:51:31* Test Item Value Reference Range Interpretation Comme nts HCV Ab (test code = 21707-3) Negative HCV Semi-Quantitative (test code = 49629-2) 0.01 [facility]AT[facility] B SURFACE [id number] 08:33:53 * Test Item Value Reference Range Interpretation Comme nts HBsAg Semi-Quantitative (ruslan t code = 5195-3) 0.12 Negative [facility]Gl[facility] 1 Hour Post [id number] 05:51:36* Test Item Value Reference Range Interpretation Comme nts GLUC 1 HR (test code = 0781781805) 89 mg/dL 120-170 L Lab Interpretation (test cod e = 72426-4) Abnormal [facility] WITH [id number] 05:33:31* Test Item Value Reference Range Interpretation Comme nts WBC (test code = 6690-2) 10.96 4.30-11.10 RBC (test code = 789-8) 3.95 3.93-5.25 HGB (test code = 718-7) 10.3 g/dL 11.6-15.0 L HCT (test code = 4544-3) 31.7 % 35.7-45.2 L MCV (test code = 787-2) 80.3 fL 80.6-95.5 L MCH (test code = 785-6) 26.1 pg 25.9-32.8 MCHC (test code = 786-4) 32.5 g/dL 31.6-35.1 RDW-SD (test code = 78546-6) 36.8 fL 39.0-49.9 L RDW-CV (test code = 788-0) 12.7 % 12.0-15.5 PLT (test code = 777-3) 404 166-358 H MPV (test code = 84768-4) 9.2 fL 9.5-12.9 L NRBC/100 WBC (test code = 5907372926) 0.0 0.0-10.0 NRBC x10^3 (test code = 2435925774) See_Comment [Automated messa ge] The system which generated this result transmitted reference range: 10*3/?L. The reference range was not used to interpret this result as normal/abnormal. GRAN MAT (NEUT) % (test code = 770-8) 75.0 % IMM GRAN % (test code = 8398987977) 0.50 % LYMPH % (test code = 736-9) 16.1 % MONO % (test code = 5905-5) 7.5 % EOS % (test code = 713-8) 0.6 % BASO % (test code = 706-2) 0.3 % GRAN MAT x10^3(ANC) (test code = 8502439123) 8.23 10*3/uL 1.88-7.09 H IMM GRAN x10^3 (test code = 0112026300) 0.05 10*3/uL 0.00-0.06 LYMPH x10^3 (test code = 731-0) 1.76 10*3/uL 1.32-3.29 MONO x10^3 (test code = 742-7) 0.82 10*3/uL 0.33-0.92 EOS x10^3 (test code = 711-2) 0.07 10*3/uL 0.03-0.39 BASO x10^3 (test code = 704-7) 0.03 10*3/uL 0.01-0.07 Lab Interpretation (test code = 61348-9) Abnormal [facility], BLOOD [id number] 05:01:00 * Test Item Value Reference Range Interpretation Comme nts ABO & RH (test code = 20) A POSITIVE IAT (test code = 1185) Negative [facility] [id number] 18:09:00* Test Item Value Reference Range Interpretation Comme nts POCT PREG (test code = 1605) Positive On board controls acceptable with C Line (test code = 3574) Yes POCT PREG LOT # (test code = 3575) POCT PREG TEST DATE ( test code = 3576) [facility] Urinalysis w/o Specific [id number] 18:09:00* Test Item Value Reference Range Interpretation Comme nts POCT PH U (test code = 3254) 7 mg/dl 5-8 POCT U LEUK EST (test code = 3263) neg Negative - Negative POCT U NIT (test code = 3262) neg Negative - Negati ve POCT U PROT (test code = 3259) trace Negative - Negat devang POCT U GLU (test code = 3256) normal Negative - Negati ve POCT U KETONE (test code = 3258) neg Negative - Neg ative POCT U BLD (test code = 3257) neg Negative - Negati ve [facility] URINALYSIS W/O SPECIFIC [id number] 23:11:00* Test Item Value Reference Range Interpretation [...] ve Lab Interpretation (test cod e = 89212-6) Normal [facility]<14 WEEKS US [id number] 17:45:03Addendum by Guerrero Whitaker MD on 04/16/2019 12:47 PMLimited USG for dating and viability:?Single live IUP measured 10 5/7 weeks.?Will date by this USG unless clinically indicated otherwise Casie Whitaker MD?04/16/2019?12:44 PM Limited USG for dating and viability:?Single live IUP wuvitrmf20 5/7 weeks.?Will date by this USG unless clinically indicated otherwise Guerrero Whitaker MD?04/16/2019?12:44 [facility] WITH DIFFERENTIAL 2019-04-14 21:44:00* Test Item Value Reference Range Interpretation Comme nts WBC (test code = 6690-2) See_Comment [Automated [employer]] The system which generated this result transmitted reference range: 4.50 - 13.50 10*3/?L. The reference range was not used to interpret this result as normal/abnormal. RBC (test code = 789-8) See_Comment [Automated [employer]] The system which generated this result [...] 34.1 g/dL 32-36 RDW-SD (test code = 71416-8) 37.2 fL 38.5-49 L RDW-CV (test code = 788-0) 12.5 % 11.5-14 PLT (test code = 777-3) See_Comment H [Automated messa ge] The system which generated this result transmitted reference range: 135 - 361 10*3/?L. The reference range was not used to interpret this result as normal/abnormal. MPV (test code = 33913-4) 8.8 fL 9.4-13.3 L NRBC/100 WBC (test code = 9326471150) See_Comment [Automated me ssage] The system which generated this result transmitted reference range: 0.0 - 10.0 /100 WBCs. The reference range was not used to interpret this result as normal/abnormal. NRBC x10^3 (test code = 0500835107) <0.01 See_Comment [Automated messa ge] The system which generated this result transmitted reference range: 10*3/?L. The reference range was not used to interpret this result as normal/abnormal. GRAN MAT (NEUT) % (test code = 770-8) 71.3 % IMM GRAN % (test code = 7999130965) 0.40 % LYMPH % (test code = 736-9) 19.6 % MONO % (test code = 5905-5) 7.8 % EOS % (test code = 713-8) 0.5 % BASO % (test code = 706-2) 0.4 % GRAN MAT x10^3(ANC) (test code = 0737660464) 5.21 10*3/uL 1.5-10.3 IMM GRAN x10^3 (test code = 3134959988) 0.03 10*3/uL 0-0.06 LYMPH x10^3 (test code = 731-0) 1.43 10*3/uL 0.7-7.4 MONO x10^3 (test code = 742-7) 0.57 10*3/uL 0-0.5 H EOS x10^3 (test code = 711-2) 0.04 10*3/uL 0-0.4 BASO x10^3 (test code = 704-7) 0.03 10*3/uL 0-0.1 Lab Interpretation (test code = 50872-7) Abnormal [facility]<14 WEEKS US [id number] 23:55:04Limited USG for dating due to irregular periods:?transabdominal USG showed intrauterine gestationalsac with yolk sac and no pole Guerrero Whitaker MD?03/20/2019?6:54 PMUnH[facility] NorthwestGAL[facility] ONLY - VAGINAL PATHOGENS BY DNA [id number] 17:42:00* Test Item Value Reference Range Interpretation Comme nts Trichomonas vaginalis (test code = 3778269446) Negative Negative Gardnerella vaginalis (test code = 0799450666) Negative Negative Susan species (test code = 9924171435) Negative Negative Lab Interpretation (test cod e = 70680-5) [facility] CHLAMYDIA AMPLIFIED [id number] 17:25:00* Test Item Value Reference Range Interpretation Comme nts Lab Interpretation (test cod e = 51958-5) [facility] - DRUG SCREEN [id number] 02:43:00* Test Item Value Reference Range Interpretation Comme nts BENZO U (test code = 2846770297) Negative Negative ELVIS U (test code = 8702604382) Negative Negative AMPHET (test code = 6078954739) Negative Negative THC (test code = 0157601753) Negative Negative METHADONE (test code = 5026542805) Negative Negative Meth U (test code = 9150089885) Negative Negative OPIATES (test code = 5963856737) Negative Negative Cocaine Metabolite (test code = 0818628434) Negative Negative PROPOXY (test code = 4384319530) Negative Negative Tric U (test code = 0925277730) Negative Negative PCP (test code = 6526748083) Negative Negative OXYCOD (test code = 9844627998) Negative Negative ARNULFO (test code = ARNULFO) [...] legal testing). Lab Interpretation (test code = 80293-2) Normal [facility] BETA HCG [id number] 17:07:00* Test Item Value Reference Range Interpretation Comme nts BETA HCG (test code = 5108698459) See_Comment [Automated [employer]] The system which generated this result transmitted reference range: Non- female and male patients: <5 mIU/mL. The reference range was not used to interpret this result as normal/abnormal. ARNULFO (test code = ARNULFO) Gestational Age?Range (mIU/mL)1-10?Weeks?4 4-72427182-06 Weeks?58747-17496401 -22 Weeks?7480-24511669- 40 Weeks?1531-627452Wmc tin has been reported to cause a negative bias, interpret results relative to patient's use of biotin. [facility] URINALYSIS W/O SPECIFIC [id number] 14:40:00* Test Item Value Reference Range Interpretation [...] = 3257) N/A Negative - Negati ve [facility] [id number] 14:30:00* Test Item Value Reference Range Interpretation Comme nts POCT PREG (test code = 1605) Positive On board controls acceptable with C Line (test code = 3574) Yes POCT PREG LOT # (test code = 3575) POCT PREG TEST DATE ( test code = 3576) [facility] Notes Date/Time Note Provider Source 2024-06-04 00:56:26 CC: Midline abdominal pain and pelvic cramping at 32 weeks. Pain began yesterday. Pt is currently taking ABX for Climidia. Sees DR. Santos G2 L1 Awake, alert, oriented, resp reg unlabored, skin intact, color appropriate for race, moves all ext without difficulty, amb Report given to KATELYN Andrews Faina Flores RN [facility] 2024-06-03 13:21:23 Notified the patient of her positive STI results chlamydia. Notified the patient her medication has been sent to her pharmacy on file. Educated patient she should complete the entire course, advised patient to practice safe sex practices and to remain abstinent for at least 1-2 weeks post treatment. Patient desires to have partner treated. Name of partner: Jhony Singh :03/23/1996 [employer] Phone number:[phone] Offered std pamphlet for partner education. Patient declined std pamphlet to be mailed to partner. Advised patient on HIV testing if she has not recently been tested. Advised DENISE appointment in 3 months. Pt verbalized understanding. Jacquelyn Appiah RN 06/03/24 1:23 PM Jacquelyn Appiah RN [facility] 2024-06-03 12:06:48 Pt tested positive for chlamydia. Prescription for azithromycin routed to her pharmacy on file/ordered for clinic pickup/administration. Please notify patient of results. Her partner needs to be notified and should be encouraged to follow up with his PCP or may come to [facility] for treatment. If the partner is unwilling or unable to come to the clinic, PDPT/EPT can be initiated. If the patient s partner has no allergies to antibiotics and does not have any abdominal pain, pelvic pain, or genital/groin pain, you may route a prescription for doxycycline to the partner s choice of pharmacy and mail a copy of the STD handouts to the patient or may mail to the partner for delivery to the patient. If the patient reports her partner is symptomatic he should be encouraged to seek treatment immediately and in person. The patient should have a follow up STD screen in 3 months which has been future ordered (if will need DENISE in 3-4 weeks). [facility] 2024-06-02 08:23:42 Patient diagnosed with anemia in by provider. Advised patient iron/vitamin C supplement has been called into her pharmacy. Educated patient on iron rich foods such as dark Green leafy vegetables, red meat, beans, peas, and iron rich cereals. Educated patient on foods high in vitamin C to assist in iron absorption such as orange juice, citrus fruits, strawberries, tomatoes, and matias peppers. Educated patient on side effects of Iron supplement such as constipation and advised to supplement with colace as needed. Patient verbalized understanding. Jacquelyn Appiah RN 06/02/24 8:24 AM [facility] Jacquelyn Appiah RN [facility] 2024-06-02 07:30:36 Please call patient and let her know she has anemia and I erx prescription to pharmacy. She is still medicaid pending so can take OTC if needed. T [facility] 2024-02-07 23:38:17 PT ELOPE PRIOR TO DISPO. LAST SEEN IN STABLE CONDITION, AOx4, NO ATAXIA NOTED. PT DID NOT SIGN AMA PAPERS. PER REGISTRATION PT STATES "IM NOT WAITING HERE ALL NIGHT." PT THEN THROWS IDENTIFICATION BAND INTO TRASH AND ELOPES FROM DEPARTMENT. Catalina Ervin RN [facility] 2024-02-07 22:20:12 Pt arrives ambulatory to ED c/o tooth pain that began yesterday. She reports she can't eat or drink anything and since she is 15 weeks she is not able to take anything that helps the pain. [facility]
--- NOTE | 2024-06-07 15:39 | EDPHYS ---
Physician Documentation [facility] Name: Altagracia Yu Age: 19 yrs Sex: Female : 2005 Arrival Date: 06/07/2024 Time: 15:09 Bed 16 Private MD: ED Physician Neil Sagastume HPI: 06/07 17:16 This 19 yrs old Female presents to ER via Ambulatory with complaints of 32 wks preg rt contractions. 17:16 Patient presents to the ED with pain, concern for contractions starting today. States rt that they occur about 30 seconds every hour. She states that these are different from previous contractions that she had. Of note, she is at 32 weeks , receives her care at [facility]. Denies other acute complaints at this time, symptoms are moderate in severity, no other aggravating or alleviating factors.. 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 - Infectious Disease History:: Denies. - Family history:: not pertinent. - Social history:: Smoking status: unknown. ROS: 17:16 Constitutional: Negative for fever, chills, and weight loss, Cardiovascular: Negative rt for chest pain, palpitations, and edema, Respiratory: Negative for shortness of breath, cough, wheezing, and pleuritic chest pain, MS/Extremity: Negative for injury and deformity, Skin: Negative for injury, rash, and discoloration, Neuro: Negative for headache, weakness, numbness, tingling, and seizure, 17:16 Abdomen/GI: Positive for abdominal pain, Negative for nausea and vomiting, Exam: 17:16 Constitutional: This is a well developed, well nourished patient who is awake, alert, rt and in no acute distress. Head/Face: Normocephalic, atraumatic. Chest/axilla: Normal chest wall appearance and motion. Nontender with no deformity. No lesions are appreciated. Cardiovascular: Regular rate and rhythm with a normal S1 and S2. No gallops, murmurs, or rubs. Normal PMI, no JVD. No pulse deficits. Respiratory: Lungs have equal breath sounds bilaterally, clear to auscultation and percussion. No rales, rhonchi or wheezes noted. No increased work of breathing, no retractions or nasal flaring. Skin: Warm, dry with normal turgor. Normal color with no rashes, no lesions, and no evidence of cellulitis. MS/ Extremity: Pulses equal, no cyanosis. Neurovascular intact. Full, normal range of motion. Neuro: Awake and alert, GCS 15, oriented to person, place, time, and situation. Cranial nerves II-XII grossly intact. Motor strength 5/5 in all extremities. Sensory grossly intact. Cerebellar exam normal. Normal gait. 17:16 Abdomen/GI: Gravid uterus, no focal tenderness, Vital Signs: 15:15 BP 116 / 80; Pulse 109; Resp 18; Temp 97.4; Pulse Ox 99% on R/A; Weight 117.03 kg; hb Height 5 ft. 5 in. ; Pain 8/10; 15:15 Body Mass Index 42.93 (117.03 kg, 165.1 cm) hb 15:15 Pain Scale: Adult hb MDM: 15:18 Medical Screening Exam initiated rt 17:16 Differential Diagnosis Abdominal pain, contractions, labor. Data reviewed: vital signs, rt nurses notes. Refusal of service: The patient/guardian displays adequate decision making capability and despite a detailed discussion of alternatives, benefits, risks, and consequences refuses: Patient reportedly had her cervix dilated to about 2 cm 1 week ago. BLANKA Johnson checked the patient cervix, reporting it at 2 cm dilated. Elizabeth checked the cervix per patient request for woman provider. I strongly recommended that the patient be transferred to [facility] for obstetrical evaluation. I informed the patient that if the patient were to be in labor, the would most likely require support and will be unduly put at risk should she go home while being in active labor. Patient has full understanding of this and still refuses transfer, instructed the patient to seek obstetrical care emergently. She has capacity to refuse further medical evaluation and transfer.. Administered Medications: No medications were administered Disposition Summary: 06/07/24 15:39 Discharge Ordered Notes: Location: Home rt Problem: new rt Symptoms: have improved rt Condition: Undetermined rt Diagnosis - Abdominal pain in the third trimester rt Followup: rt - With: Private Physician - When: Today - Reason: Discharge Instructions: - Discharge Summary Sheet rt - Abdominal Pain During rt - Labor rt - First Stage of Labor rt - Signs and Symptoms of Labor rt Forms: - Work release form hb - Family Work Release hb - Medication Reconciliation Form rt - Antibiotic Education rt - Prescription Opioid Use rt - Patient Portal Instructions rt - Leadership Thank You Letter rt Signatures: Yris Gómez RN RN hb Neil Sagastume MD MD rt Nydia Alvarado RN RN cm10 Corrections: (The following items were deleted from the chart) 15:17 15:16 Home Meds: None; hb hb
--- NOTE | 2024-06-07 15:39 | ER ---
Nurse's Notes [facility] Name: Altagracia Yu Age: 19 yrs Sex: Female : 2005 Arrival Date: 06/07/2024 Time: 15:09 Bed 16 Private MD: Diagnosis: Abdominal pain in the third trimester Presentation: 06/07 15:15 Chief complaint: Constant lower abdominal pain since 0600 this morning. Pt is approx 32 hb weeks , JONAS /, . Coronavirus screen: At this time, the client does not indicate any symptoms associated with coronavirus-19. Ebola Screen: No symptoms or risks identified at this time. Initial Sepsis Screen: Does the patient meet any 2 criteria? No. Patient's initial sepsis screen is negative. Does the patient have a suspected source of infection? No. Patient's initial sepsis screen is negative. Risk Assessment: Do you want to hurt yourself or someone else? Patient reports no desire to harm self or others. Onset of symptoms was June 07, 2024. 15:15 Method Of Arrival: Ambulatory 15:15 Acuity: KARMEN 3 hb Triage Assessment: 15:25 General: Appears in no apparent distress. comfortable, Behavior is calm, cooperative. cm10 Pain: Complains of pain in abdomen Pain currently is 8 out of 10 on a pain scale. Quality of pain is described as Contractions. Neuro: No deficits noted. Level of Consciousness is awake, alert, obeys commands, Oriented to person, place, time, situation, Appropriate for age. : Reports I'm having contractions at 32 weeks. Musculoskeletal: No deficits noted. Range of motion: intact in all extremities. [employer] LEAD: 15:26 2, Full Term 1, Living 1, LMP 11/13/2023, Verified, EDC 08/19/2024, cm10 Gestational age from LMP: 29 weeks 4 days Historical: - Allergies: 15:16 Aspirin; hb 15:16 PENICILLINS; hb - Home Meds: 15:16 Vitamin Oral [Active]; hb - PMHx: 15:16 adhd; Anxiety; Depression; Suicidal attempts; hb - PSHx: 15:16 None; hb - Immunization history:: Adult Immunizations. - Infectious Disease History:: Denies. - Family history:: not pertinent. - Social history:: Smoking status: unknown. Screenin:26 [facility] ED Fall Risk Assessment (Adult) History of falling in the last 3 months, cm10 including since admission No falls in past 3 months (0 pts) Confusion or Disorientation No (0 pts) Intoxicated or Sedated No (0 pts) Impaired Gait No (0 pts) Mobility Assist Device Used No (0 pt) Altered Elimination No (0 pt) Score/Fall Risk Level 0 - 2 = Low Risk Oriented to surroundings, Maintained a safe environment, Hourly rounding (assess needs \T\ fall precautionary measures) done. Abuse screen: Denies threats or abuse. Denies injuries from another. Nutritional screening: No deficits noted. Tuberculosis screening: No symptoms or risk factors identified. Vital Signs: 15:15 BP 116 / 80; Pulse 109; Resp 18; Temp 97.4; Pulse Ox 99% on R/A; Weight 117.03 kg; hb Height 5 ft. 5 in. ; Pain 8/10; 15:15 Body Mass Index 42.93 (117.03 kg, 165.1 cm) hb 15:15 Pain Scale: Adult hb ED Course: 15:11 Patient arrived in ED. ra3 15:12 Neil Sagastume MD is Attending Physician. rt 15:16 Triage completed. hb 15:17 Nydia Alvarado, RN is Primary Nurse. cm10 15:17 Arm band placed on right wrist. hb 15:27 Patient has correct armband on for positive identification. Placed in gown. Bed in low cm10 position. Call light in reach. Side rails up X 1. Provided Education on: ER process and procedures.. Warm blanket given. 15:36 Assist provider with pelvic exam: Performed by Vanessa Gibson PA-C. cm10 15:50 Patient did not have IV access during this emergency room visit. cm10 Administered Medications: No medications were administered Medication: 15:26 VIS not applicable for this client. cm10 Outcome: 15:39 Discharge ordered by . rt 15:50 Discharged to home ambulatory, with significant other, cm10 15:50 Condition: good 15:50 Discharge instructions given to patient, Instructed on discharge instructions, follow up and referral plans. Demonstrated understanding of instructions, follow-up care, 15:55 Patient left the ED. cm10 Signatures: Yris Gómez RN RN Neil Sagastume MD MD rt Nydia Alvarado RN RN cm10 [place], Cara ra3 Corrections: (The following items were deleted from the chart) 15:17 15:16 Home Meds: None; hb hb 15:38 15:26 2, Full Term 1, Living 1, Verified cm10 cm10
[2024-06-07 19:01] VITALS: BP 116/80; TEMP 97.4; O2SAT 99
== END 2024-06-07 15:55 | disposition home or self-care (01) ==
LOC: ER 15:09
DX: O26.893 Other specified pregnancy related conditions, third trimester (principal)
CPT/HCPCS: 99283

== ENCOUNTER 2024-06-26 08:05 | Emergency (ER) | payer OTHER ==
--- OUTSIDE RECORDS SUMMARY | 2024-06-26 08:11 | XMS REPORT | Continuity of Care Document ---
Author Name Unknown Address [address] [facility] [place] [address] [facility] thconnect Address [address] [facility] [address] [place] [address] Care Team Providers Care City Councilman Name Role Phone Lashonda Santos CNM Primary Care Physician + ZEV CISSE Attending Clinician Unavailable LASHONDA SANTOS Attending Clinician UnavailLashonda Calvert CNM Attending Clinician [phone] MARIELA CHEN Attending Clinician Unavailable MARIELA CHEN Attending Clinician Unavailable Yves Ventura MD Attending Clinician [phone] Mariela Chen MD Attending Clinician [phone] CAROLE HOUGH Attending Clinician Unavailable GUERRERO WHITAKER Attending Clinician Unavailable GUERRERO WHITAKER Attending Clinician Unavailable Guerrero Whitaker MD Attending Clinician [phone] KHANH WHELAN Attending Clinician Unavail able Mamadou MICHAELS Attending Clinician Unavailable Mamadou Braswell Attending Clinician [phone] Doctor Unassigned, [place] Attending Clinician U navailable Arlene Valentino Attending Clinician UnavailHeaven Holm Attending Clinician [phone] Yenni Cervantes Attending Clinician Unavailable Hannah Sanchez Attending Clinician UnaYina Paredes Attending Clinician Unavailable Adali Mcpherson Attending Clinician [phone] Responsible Provider, Not Yet Assigned Attending Clinician Unavailable Yenni Gross Attending Clinician Unavailable Land Leasing Information Clerk, [facility] Student Attending Clinic louise Unavailable Shayy Rios Attending Clinician UnavailColette Mandujano Attending Clinician [phone] Tram Landaverde Attending Clinician Unavailable Polina Dobson Attending Clinician Unavailable EMMY BONILLA Attending Clinician Unavailable Emmy Bonilla PA-C Attending Clinician [phone] GUILLERMINA GILL Attending Clinician Unavailable , [facility] Attending Clinician Unavailable JULIANNE, GUERRERO TAYLOR Admitting Clinician Unavailable MARIELA CHEN Admitting Clinician Unavailable Mariela Chen MD Admitting Clinician [phone] Guerrero Whitaker MD Admitting Clinician [phone] Heaven Morrow Unavailable [phone] Adali Mcpherson Unavailable [phone] Colette Chowdary Unavailable [phone] Yenni Cervantes Unavailable Unavailable Payers Payer Name Policy Type Policy Number Effective Date Expirati on Date Source [facility] [id number] 2024 00:00:00 GREG WATERS [id number] 2024 00:00:00 [facility] [id number] 2018 00:00:00 Problems Condition Name Condition Details Condition Category Status Onset Date Resolution Date Last Treatment Date Treating Clinician Comments Source Back pain affecting in third trimester Back pain affecting in third trimester Disease Active 2023-08 00:00: 00 [facility] Morbid obesity with body mass index of 40.0-49.9 Morbid obesity with body mass index of 40.0-49.9 Disease Active 2023-08 00:00: 00 [facility] Bacterial vaginosis in Bacterial vaginosis in Disease Active 2023-08 00:00: 00 [facility] Chlamydia infection affecting Chlamydia infection affecting Disease Active 2023-08 0-17 00:00: 00 [facility] Anemia of mother in , antepartum Anemia of mother in , antepartum Disease Active 2023-08 0-16 00:00: 00 [facility] Poor historian Poor historian Disease Active 2023-08 0-16 00:00: 00 [facility] Flu vaccine refused Flu vaccine refused Disease Active 2023-08 0-16 00:00: 00 [facility] Rubella non-immune status, antepartum Rubella non-immune status, antepartum Disease Active 2023-08 0-16 00:00: 00 [facility] Maternal varicella, non-immune Maternal varicella, non-immune Disease Active 2023-08 0-16 00:00: 00 [facility] History of anxiety and depression History of anxiety and depression Disease Active 2023-08 0-15 00:00: 00 [facility] Obesity affecting in third trimester Obesity affecting in third trimester Disease Active 2023-08 0-15 00:00: 00 [facility] Late care Late care Disease Active 2023-08 0-15 00:00: 00 [facility] Current every day vaping Current every day vaping Disease Active 2023-08 0-15 00:00: 00 [facility] Greater Than or Equal to 95th Percentile For Age Condition Active 10-14 00:00: 00 2019-10-15 09:09:50 Heaven Morrow On license of [facility] Anemia in , third trimester Condition Active 2-24 00:00: 00 2019-10-11 11:20:23 Adali Mcpherson [facility] Supervisio n of other high risk pregnancie s, third trimester Condition Active 10-07 00:00: 00 2019-10-07 17:42:03 Colette Chowdary [facility] Supervisio n of high risk due to social problems, third trimester Condition Active 10-07 00:00: 00 2019-10-07 17:42:03 Colette Chowdary [facility] 28 weeks gestation of 28 weeks gestation of Disease Active 2018-08 00:00: 00 [facility] Cramping affecting , antepartum Cramping affecting , antepartum Disease Resolve d 2023-08 0-24 00:00: 00 2024-06-24 00:00:00 2024-06-24 07:22:04 [facility] No leakage of amniotic fluid into vagina No leakage of amniotic fluid into vagina Disease Resolve d 2023-08 00:00: 00 2024-06-23 00:00:00 2024-06-23 12:40:19 [facility] Round ligament pain Round ligament pain Disease Resolve d 09-17 00:00: 00 2024-06-01 00:00:00 2024-06-01 13:43:00 [facility] 32 weeks gestation of 32 weeks gestation of Disease Resolve d 2018-08 00:00: 00 2024-06-01 00:00:00 2024-06-01 13:43:02 [facility] Supervisio n of high risk in third trimester Supervisio n of high risk in third trimester Disease Resolve d 2018-08 00:00: 00 2024-06-01 00:00:00 2024-06-01 13:43:01 [facility] Uterine size-date discrepanc y in third trimester Uterine size-date discrepanc y in third trimester Disease Resolve d 2018-08 00:00: 00 2024-06-01 00:00:00 2024-06-01 13:42:59 [facility] Need for Tdap vaccinatio n Need for Tdap vaccinatio n Disease Resolve d 2018-08 00:00: 00 2024-06-01 00:00:00 2024-06-01 13:43:06 [facility] History of Past Illness Condition Name Condition Details Condition Category Status Onset Date Resolution Date Last Treatment Date Treating Clinician Comments Source 36 Weeks Gestation of Condition Inactiv e 10-14 00:00: 00 2019-10-21 00:00:00 2019-10-15 09:09:50 [facility] 35 Weeks Gestation of Condition Inactiv e 10-07 00:00: 00 2019-10-14 00:00:00 2019-10-07 17:42:03 Germán ManningColette [facility] Allergies, Adverse Reactions, Alerts Allergy Name Allergy Type Status Severity Reaction(s) Onset Date Inactive Date Treating Clinician Comments Source PENICILL IN DRUG INGREDI Active Hives 02-06 00:00: 00 [facility] Penicill in Propensi ty to adverse reaction s Active Hives 02-06 00:00: 00 [facility] Penicill ins - CLASS Propensi ty to adverse reaction to drug Active 7-19 00:00: 00 Penicill ins Propensi ty to adverse reaction to drug Active 3-21 00:00: 00 ASPIRIN DRUG INGREDI Active ITCHING 03-17 00:00: 00 [facility] Aspirin Propensi ty to adverse reaction s Active Swelling 03-17 00:00: 00 [facility] Social History Social Habit Start Date Stop Date Quantity Comments Source ASSERTION 2023-11-05 00:00:00 [facility] SDOH Alcohol Std Drinks [facility] History SDOH Alcohol Binge [facility] Alcoholic beverage intake 2024-06-23 00:00:00 2024-06-23 00:00:00 Lifetime non-drinker (finding) [facility] Tobacco use and exposure 2024-06-01 00:00:00 2024-06-01 00:00:00 Former smokeless tobacco user [facility] History of Social function 2024-06-01 00:00:00 2024-06-01 00:00:00 [facility] Tobacco Comment 2024-06-01 00:00:00 2024-06-01 00:00:00 Vapes [facility] Have you traveled to any zika virus infected areas? 2019-10-14 13:44:33 2019-10-14 13:44:33 No [facility] social history E&M 2019-10-07 14:07:37 2019-10-07 14:07:37 not currently with familyliving with kali's familystates her own parents not involved with this . [facility] cat exposure during 2019-10-07 14:07:37 2019-10-07 14:07:37 no [facility] Alcohol intake 2019-09-17 00:00:00 2019-09-17 00:00:00 [facility] History SDOH Alcohol Frequency 2019-03-17 00:00:00 2019-03-17 00:00:00 1 [facility] History of tobacco use 2019-03-07 00:00:00 Chews Tobacco [facility] Sex assigned at 2005 00:00:00 2005 00:00:00 [facility] Smoking Status Start Date Stop Date Source Never smoked tobacco [facility] Medications Ordered Medication Name Filled Medication Name Start Date Stop Date Current Medication? Ordering Clinician Indication Dosage Frequency Signature (SIG) Comments Components Source metroNIDAZO LE 500 mg tablet 2023-08 00:00: 00 Yes [id number] 500mg Take 1 tablet by mouth every 12 (twelve) hours. [facility] proMETHazin e 25 mg tablet 2023-08 00:00: 00 Yes [id number] 25mg Take 1 tablet by mouth every 4 (four) hours as needed for Nausea and Vomiting (N/V). [facility] azithromyci n (ZITHROMAX) 500 mg tablet 2023-08 00:00: 00 06-04 04:59 :00 Yes [id number] 01 1000mg Take 2 tablets by mouth once now for 1 dose. [facility] Iron Fum & P-FA-Vit B & C No.9 (INTEGRA PLUS) 125 mg iron- 1 mg Cap 1 0-16 00:00: 00 Yes [id number] 1{capsu le} Take 1 capsule by mouth in the morning. [facility] Dose Unknown 0 9-18 00:00: 00 No TAKE 1 TABLET BY MOUTH EVERY DAY 2021-0 9-18 00:00: 00 No TAKE 1 TABLET BY MOUTH EVERY DAY 2021-0 8-18 00:00: 00 No 10 TAKE 1 TABLET BY MOUTH EVERY DAY 0 8-18 00:00: 00 No 10 Dose Unknown 0 8-12 00:00: 00 No 375 Dose Unknown 0 8-12 00:00: 00 No 375 Dose Unknown 0 8-12 00:00: 00 No 375 TAKE 1 CAPSULE BY MOUTH 3 TIMES A DAY NEEDED 2021-0 8- 00:00: 00 No 25 TAKE 1 CAPSULE BY MOUTH 3 TIMES A DAY NEEDED 0 8- 00:00: 00 No 25 TAKE 1 CAPSULE BY MOUTH 3 TIMES A DAY NEEDED 2021-0 8- 00:00: 00 No 25 Dose Unknown 0 8-08 00:00: 00 No 500 Dose Unknown 0 8-08 00:00: 00 No 300 Dose Unknown 0 8-08 00:00: 00 No 500 Dose Unknown 0 8-08 00:00: 00 No 300 Dose Unknown 0 808 00:00: 00 No 500 Dose Unknown 0 808 00:00: 00 No 300 TAKE 1 TABLET DAILY. 0 8-06 00:00: 00 No 10 Dose Unknown 0 8-06 00:00: 00 No 375 TAKE 1 TABLET BY MOUTH EVERY 6 HOURS NEEDED FOR PAIN 0 8-06 00:00: 00 No TAKE 1 TABLET DAILY. 0 8-06 00:00: 00 No 10 Dose Unknown 0 8-06 00:00: 00 No 375 TAKE 1 TABLET BY MOUTH EVERY 6 HOURS NEEDED FOR PAIN 2021-0 8-06 00:00: 00 No TAKE 1 TABLET DAILY. 0 8-06 00:00: 00 No 10 Dose Unknown 0 8- 00:00: 00 No 375 TAKE 1 TABLET [...] Unknown 2022-0 8-03 00:00: 00 No 375 &lt 2022-0 7-25 00:00: 00 No 500 [...] DAYS 2022-0 7-25 00:00: 00 No 300 TAKE 1 TABLET BY MOUTH EVERY 6 HOURS NEEDED FOR PAIN 2022-0 03-07 00:00: 00 No TAKE 1 TABLET BY MOUTH EVERY 6 HOURS NEEDED FOR PAIN 2021-0 03-07 00:00: 00 No TAKE 1 TABLET BY MOUTH EVERY 6 HOURS NEEDED FOR PAIN 2021-0 03-07 00:00: 00 No TAKE 1 TABLET BY MOUTH EVERY 6 HOURS NEEDED FOR PAIN 2021-0 03-07 00:00: 00 No citalopram 10 mg tablet 2021-0 20 00:00: 00 No 1mg Dose Unknown 2021-0 03-06 00:00: 00 No 375 &lt 2021-0 03-06 00:00: 00 No 500 TAKE 1 CAPSULE BY MOUTH EVERY 6 HOURS FOR 10 DAYS 2021-0 03-06 00:00: 00 No 300 citalopram 10 mg tablet 2021-0 03-06 00:00: 00 No 1mg Dose Unknown 2021-0 03-06 00:00: 00 No 375 &lt 2-0 7- 00:00: 00 No 500 TAKE 1 CAPSULE BY MOUTH EVERY 6 HOURS FOR 10 DAYS 2021-0 03-06 00:00: 00 No 300 citalopram 10 mg tablet 2021-0 03-06 00:00: 00 No 1mg Dose Unknown 2021-0 03-06 00:00: 00 No 375 &lt 2-0 03-06 00:00: 00 No 500 TAKE 1 CAPSULE BY MOUTH EVERY 6 HOURS FOR 10 DAYS 2021-0 03-06 00:00: 00 No 300 citalopram 10 mg tablet 2021-0 03-06 00:00: 00 No 1mg Dose Unknown 2021-0 03-06 00:00: 00 No 375 &lt 2021-0 03-06 00:00: 00 No 500 TAKE 1 CAPSULE BY MOUTH EVERY 6 HOURS FOR 10 DAYS 2021-0 03-06 00:00: 00 No 300 citalopram 10 mg tablet 2021-0 03-05 00:00: 00 No 1mg citalopram 10 mg tablet 2021-0 03-05 00:00: 00 No 1mg citalopram 10 mg tablet 2021-0 03-05 00:00: 00 No 1mg citalopram 10 mg tablet 2021-0 03-05 00:00: 00 No 1mg TAKE 1 CAPSULE [...] 2022-0 3-15 00:00: 00 No Dose Unknown 2-0 3-15 00:00: 00 No Dose Unknown 2-0 3-15 00:00: 00 No Dose Unknown 2022-0 [...] medroxyprog esterone 150 mg/mL intramuscul ar syringe 103-13 00:00: 00 No 1mg/mL Wellbutrin XL 150 [...] Mcpherson Take 1 Tablet Once a Day On license of [facility] VITAFOL ULTRA (PRENAT-FE POLY-METHFO L-FA-DHA) 29-0.6-0.4- 200 MG CAPS 10-07 00:00: 00 Yes Colette Germán Manning 1{Capsu le} 1xD take 1 capsule by mouth daily On license of [facility] BLOOD PRESSURE (BLOOD PRESSURE MONITORING) KIT 10-07 00:00: 00 Yes Colette Dunlap Nigel take twice daily On license of [facility] PNV 67-iron ps-folate no.1-dha (VITAFOL ULTRA) 29 mg iron- 1 mg-200 mg Cap 03-20 00:00: 00 Yes [id number] Take 1 TAB-CAP/M2 by mouth daily. [facility] PNV 67-iron ps-folate no.1-dha (VITAFOL ULTRA) 29 mg iron- 1 mg-200 mg Cap 03-20 00:00: 00 Yes [id number] Take 1 TAB-CAP/M2 by mouth daily. [facility] cetirizine 5 mg tablet 12-22 00:00: [...] (28) No known medications No Un adrian [facility] No known medications No Un adrian [facility] Immunizations Ordered Immunization Name Filled Immunization Name Date Status Comments Source TDAP 2024-06-01 00:00:00 Completed [facility] TDAP (ADACEL) VACCINE 2019-08-17 00:00:00 Completed [facility] TDAP (ADACEL) VACCINE 2019-08-17 00:00:00 Completed [facility] TDAP (ADACEL) VACCINE 2019-08-17 00:00:00 Completed [facility] TDAP (ADACEL) VACCINE 2019-08-17 00:00:00 Completed [facility] TDAP (ADACEL) VACCINE 2019-08-17 00:00:00 Completed Influenza Virus Vaccine Quad .5 mL IM 6+ MO 2019-06-14 00:00:00 Completed [facility] Influenza Virus Vaccine Quad .5 mL IM 6+ MO 2019-06-14 00:00:00 Completed [facility] Influenza Virus Vaccine Quad .5 mL IM 6+ MO 2019-06-14 00:00:00 Completed [facility] Influenza Virus Vaccine Quad .5 mL IM 6+ MO 2019-06-14 00:00:00 Completed [facility] Influenza Virus Vaccine Quad .5 mL IM 6+ MO (FLUZONE/FLULAVAL/F LUARIX) 2019-06-14 00:00:00 Completed [facility] HPV9 2018-12-11 00:00:00 Completed Hep [...] IM 6+ MO (FLUZONE/FLULAVAL/F LUARIX) Unknown Completed [facility] TDAP (ADACEL) VACCINE Unknown Completed [facility] Vital Signs Vital Name Observation Time Observation Value Comments S ource Systolic blood pressure 2024-06-23 18:22:00 109 mm[Hg] [facility] Diastolic blood pressure 2024-06-23 18:22:00 60 mm[Hg] [facility] Heart rate 2024-06-23 18:22:00 101 [facility] Body temperature 2024-06-23 18:22:00 35.83 Vicky [facility] Respiratory rate 2024-06-23 18:22:00 18 /min [facility] Body height 2024-06-23 18:22:00 165.1 cm [facility] Body weight 2024-06-23 18:22:00 119.75 kg [facility] BMI 2024-06-23 18:22:00 43.93 kg/m2 [facility] Systolic blood pressure 2024-06-19 12:30:00 84 mm[Hg] [facility] Diastolic blood pressure 2024-06-19 12:30:00 57 mm[Hg] [facility] Heart rate 2024-06-19 12:30:00 72 /min Unive [facility] Oxygen saturation in Arterial blood by Pulse oximetry 2024-06-19 12:30:00 98 /min [facility] Body temperature 2024-06-19 09:24:00 36.44 Vicky [facility] Respiratory rate 2024-06-19 09:24:00 18 /min [facility] Body height 2024-06-19 09:24:00 165.1 cm [facility] Body weight 2024-06-19 09:24:00 118.661 kg [facility] BMI 2024-06-19 09:24:00 43.53 kg/m2 [facility] Systolic blood pressure 2024-06-09 17:33:00 94 mm[Hg] [facility] Diastolic blood pressure 2024-06-09 17:33:00 76 mm[Hg] [facility] Heart rate 2024-06-09 17:26:00 84 /min [facility] Body temperature 2024-06-09 17:26:00 36.5 Vicky [facility] Respiratory rate 2024-06-09 17:26:00 18 /min [facility] Body height 2024-06-09 17:26:00 165.1 cm [facility] Body weight 2024-06-09 17:26:00 117.283 kg [facility] BMI 2024-06-09 17:26:00 43.03 kg/m2 [facility] Systolic blood pressure 2024-06-04 09:30:00 118 mm[Hg] [facility] Diastolic blood pressure 2024-06-04 09:30:00 72 mm[Hg] [facility] Heart rate 2024-06-04 09:30:00 87 /min [facility] Oxygen saturation in Arterial blood by Pulse oximetry 2024-06-04 09:30:00 96 /min [facility] Respiratory rate 2024-06-04 09:00:00 19 /min [facility] Body temperature 2024-06-04 06:22:00 36.83 Vicky [facility] Body height 2024-06-04 06:00:00 165.1 cm [facility] Body weight 2024-06-04 06:00:00 117.028 kg [facility] BMI 2024-06-04 06:00:00 42.93 kg/m2 [facility] Systolic blood pressure 2024-06-01 18:05:00 115 mm[Hg] [facility] Diastolic blood pressure 2024-06-01 18:05:00 73 mm[Hg] [facility] Heart rate 2024-06-01 18:05:00 98 /min Un[facility] Body temperature 2024-06-01 18:05:00 36.61 Vicky [facility] Respiratory rate 2024-06-01 18:05:00 18 /min [facility] Body height 2024-06-01 18:05:00 165.1 cm [facility] Body weight 2024-06-01 18:05:00 117.845 kg [facility] BMI 2024-06-01 18:05:00 43.23 kg/m2 [facility] Systolic blood pressure 2024-02-08 03:23:00 143 mm[Hg] [facility] Diastolic blood pressure 2024-02-08 03:23:00 82 mm[Hg] [facility] Heart rate 2024-02-08 03:23:00 93 /min Un[facility] Body temperature 2024-02-08 03:23:00 37.39 Vicky [facility] Respiratory rate 2024-02-08 03:23:00 21 /min [facility] Body height 2024-02-08 03:23:00 165.1 cm [facility] Body weight 2024-02-08 03:23:00 106.641 kg [facility] BMI 2024-02-08 03:23:00 39.12 kg/m2 [facility] Oxygen saturation in Arterial blood by Pulse oximetry 2024-02-08 03:23:00 100 /min [facility] Systolic blood pressure 2019-08-31 23:06:00 93 mm[Hg] [facility] Diastolic blood pressure 2019-08-31 23:06:00 64 mm[Hg] [facility] Heart rate 2019-08-31 23:06:00 90 /min Unive [facility] Body temperature 2019-08-31 23:06:00 36.39 Vicky [facility] Respiratory rate 2019-08-31 23:06:00 18 /min [facility] Body height 2019-08-31 23:06:00 160 cm [facility] Body weight 2019-08-31 23:06:00 101.606 kg [facility] BMI 2019-08-31 23:06:00 39.68 kg/m2 [facility] Systolic blood pressure 2019-04-14 19:00:00 117 mm[Hg] [facility] Diastolic blood pressure 2019-04-14 19:00:00 70 mm[Hg] [facility] Heart rate 2019-04-14 19:00:00 79 /min [facility] Body temperature 2019-04-14 19:00:00 36.89 Vicky [facility] Respiratory rate 2019-04-14 19:00:00 18 /min [facility] Body height 2019-04-14 19:00:00 160 cm [facility] Body weight 2019-04-14 19:00:00 87.544 kg [facility] BMI 2019-04-14 19:00:00 34.19 kg/m2 [facility] Systolic blood pressure 2019-03-17 14:24:00 112 mm[Hg] [facility] Diastolic blood pressure 2019-03-17 14:24:00 70 mm[Hg] [facility] Heart rate 2019-03-17 14:24:00 77 /min [facility] Body temperature 2019-03-17 14:24:00 36.83 Vicky [facility] Respiratory rate 2019-03-17 14:24:00 18 /min [facility] Body height 2019-03-17 14:24:00 160 cm [facility] Body weight 2019-03-17 14:24:00 90.266 kg [facility] BMI 2019-03-17 14:24:00 35.25 kg/m2 [facility] BP Systolic 2022-05-07 17:13:00 117 mm[Hg] [...] blood pressure, diastolic 2019-10-14 13:44:33 84 mm[Hg] [facility], systolic 2019-10-14 13:44:33 125 mm[facility]Hg[facility] E&M 2019-10-14 13:44:33 87 /min L [facility] oxygen saturation, oximetry 2019-10-14 13:44:33 97 % [facility] respiratory rate E&M 2019-10-14 13:44:33 20 /min [facility] temperature site 2019-10-14 13:44:33 oral [facility] temperature E&M 2019-10-14 13:44:33 98.3 [degF] [facility] weight E&M 2019-10-14 13:44:33 238.8 [lb_av] [place] [facility] height E&M 2019-10-14 13:44:33 63 [in_i] Leg[facility] oxygen saturation, oximetry 2019-10-07 14:07:37 98 % [facility] blood pressure, diastolic 2019-10-07 14:07:37 83 mm[facility]Hg] [facility] blood pressure, systolic 2019-10-07 14:07:37 130 mm[Hg] [facility] rate E&M 2019-10-07 14:07:37 91 /min L [facility] temperature E&M 2019-10-07 14:07:37 98.6 [degF] [facility] temperature site 2019-10-07 14:07:37 [facility] 2019-10-07 14:07:37 63 [in_i] Legac y [facility] weight E&M 2019-10-07 14:07:37 235 [lb_av] [facility] Procedures Procedure Date / Time Performed Performing Clinician Source POCT URINALYSIS 2024-06-23 18:24:00 Lashonda Santos [facility] ADC ONLY - FERN TEST 2024-06-19 13:13:00 Adum, Mariela Mcmahon [facility] US PELVIS > 14 WEEKS 2024-06-19 12:47:02 Adum, Mariela Mcmahon [facility] ADC ONLY - FERN TEST 2024-06-19 09:45:00 Adum, Mariela Mcmahon [facility] POCT URINALYSIS 2024-06-09 17:25:00 Lashonda Santos [facility] URINALYSIS 2024-06-04 06:44:00 Guerrero Whitaker [facility] ADC CLC OR L[facility] ONLY - WET PREP 2024-06-04 06:44:00 Guerrero Whitaker [facility] HB INDIRECT ANTIGLOBULIN TEST 2024-06-01 19:14:00 Lashonda Santos [facility] HIV 1/2 AG-AB WITH REFLEX 2024-06-01 19:14:00 Lashonda Santos [facility] RUBELLA SCREEN IGG 2024-06-01 19:14:00 Marysol Santos [facility] VZV ANTIBODY SCREEN 2024-06-01 19:14:00 Maddy Santos [facility] URINE CULTURE 2024-06-01 19:14:00 Lashonda Santos [facility] GC & CHLAMYDIA AMPLIFIED ASSAY 2024-06-01 19:14:00 Lashonda Santos [facility] LAB ONLY PAP SMEAR-LIQUID BASED 2024-06-01 19:14:00 Lashonda Santos [facility] TRICHOMONAS AMPLIFIED ASSAY 2024-06-01 19:14:00 Lashonda Santos [facility] PAP SMEAR-LIQUID BASED-CP 2024-06-01 19:14:00 Lashonda Santos [facility] SYPHILIS IGG/IGM 2024-06-01 19:14:00 Lashonda Santos [facility] GLUCOSE 1 HOUR POST PRANDIAL 2024-06-01 19:14:00 Lashonda Santos [facility] CBC WITH DIFF 2024-06-01 19:14:00 Lashonda Santos [facility] HEPATITIS B SURFACE ANTIGEN 2024-06-01 19:14:00 Lashonda Santos [facility] HCV ANTIBODY 2024-06-01 19:14:00 [facility] >11 YRS, IM 2024-06-01 18:45:16 Lashonda Santos [facility] POCT TEST 2024-06-01 00:00:00 Maddy Santos [facility] POCT URINALYSIS W/O SPECIFIC GRAVITY 2024-06-01 00:00:00 Lashonda Santos [facility] CONSENT/REFUSAL FOR DIAGNOSIS AND TREATMENT 2019-10-25 05:01:00 Doctor Unassigned, [place] [facility] Nutrition Counseling (Obese) 2019-10-14 14:28:44 Heaven Morrow [facility] Case Mgmt Visit, Non-Billable [id number] 2019-10-07 15:54:24 Yenni Gross [facility] Vaccines Ordered - Print Consent/Declination Forms 2019-10-07 15:46:26 Colette Chowdary [facility] POCT URINALYSIS W/O SPECIFIC GRAVITY 2019-08-31 00:00:00 Emmy Bonilla [facility] <14 WEEKS US LIMITED 2019-04-16 17:44:02 Guerrero Whitaker [facility] CBC WITH DIFFERENTIAL 2019-04-14 21:36:00 Guerrero Whitaker [facility] ASSIGNMENT OF BENEFITS 2019-04-14 20:00:31 Docto r Unassigned, [place] [facility] <14 WEEKS US LIMITED 2019-03-20 23:54:07 Guerrero Whitaker [facility] TOTAL BETA HCG ASSAY 2019-03-17 15:19[facility] CHLAM[facility]DIA AMPLIFIED ASSAY 2019-03-17 14:53:00 Whitaker [facility] GALV ONLY - VAGINAL PATHOGENS BY DNA PROBE 2019-03-17 14:53:00 Julianne [facility] ADC / LCC - DRUG SCREEN TRIAGE 2019-03-17 14:53:00 JulianneGuerrero [facility] POCT TEST 2019-03-17 00:00:00 Whitaker [facility] POCT URINALYSIS W/O SPECIFIC GRAVITY 2019-03-17 00:00[facility]00 [facility] Planned Activity Planned Date Details Comments Source Goal Plan of Care Note [code = 68090-9] Goal Plan of Care Note [code = 25085-9] Goal Plan of Care Note [code = 60808-0] Goal Plan of Care Note [code = 33258-9] Goal Plan of Care Note [code = 03811-4] Goal Plan of Care Note [code = 94353-8] Goal Plan of Care Note [code = 45917-0] Goal Plan of Care Note [code = 47168-6] Goal Plan of Care Note [code = 07803-5] Goal Plan of Care Note [code = 16902-7] Goal Plan of Care Note [code = 43472-6] Goal Plan of Care Note [code = 74136-4] Goal Plan of Care Note [code = 70746-5] Goal Plan of Care Note [code = 55851-4] Goal Plan of Care Note [code = 02637-5] Goal Plan of Care Note [code = 63823-1] Goal Plan of Care Note [code = 24170-5] Goal Plan of Care Note [code = 56632-9] Goal Plan of Care Note [code = 34277-0] Goal Plan of Care Note [code = 90738-9] Goal Plan of Care Note [code = 53254-4] Goal Plan of Care Note [code = 82081-1] Goal Plan of Care Note [code = 05801-6] Goal Plan of Care Note [code = 13177-6] Goal Plan of Care Note [code = 39275-0] Goal Plan of Care Note [code = 84804-0] Goal Plan of Care Note [code = 36886-4] Goal Plan of Care Note [code = 67314-2] Goal Plan of Care Note [code = 49135-9] Goal Plan of Care Note [code = 69556-2] Goal Plan of Care Note [code = 43531-3] Goal Plan of Care Note [code = 02194-8] Goal Plan of Care Note [code = 27042-1] Goal Plan of Care Note [code = 11138-9] Goal Plan of Care Note [code = 88259-2] Goal Plan of Care Note [code = 73822-2] Goal Plan of Care Note [code = 78080-6] Goal Plan of Care Note [code = 98492-8] Goal Plan of Care Note [code = 43384-8] Goal Plan of Care Note [code = 37503-5] Goal Plan of Care Note [code = 97054-0] Goal Plan of Care Note [code = 71015-5] Goal Plan of Care Note [code = 95568-2] Goal Plan of Care Note [code = 29162-6] Goal Plan of Care Note [code = 97760-7] Goal Plan of Care Note [code = 15541-2] Goal Plan of Care Note [code = 50208-9] Goal Plan of Care Note [code = 14718-4] Goal Plan of Care Note [code = 95845-2] Goal Plan of Care Note [code = 51296-5] Goal Plan of Care Note [code = 43696-0] Goal Plan of Care Note [code = 03815-9] Goal Plan of Care Note [code = 83824-0] Goal Plan of Care Note [code = 07766-2] Goal Plan of Care Note [code = 52351-1] Goal Plan of Care Note [code = 12415-1] Goal Plan of Care Note [code = 68447-2] Goal Plan of Care Note [code = 97751-0] Goal Plan of Care Note [code = 66107-7] Goal Plan of Care Note [code = 12087-6] Goal Plan of Care Note [code = 89182-8] Goal Plan of Care Note [code = 61378-1] Goal Plan of Care Note [code = 71224-5] Goal Plan of Care Note [code = 99098-2] Goal Plan of Care Note [code = 69206-7] Goal Plan of Care Note [code = 42914-5] Goal Plan of Care Note [code = 65400-6] Goal Plan of Care Note [code = 81632-5] Goal Plan of Care Note [code = 13189-4] Goal Plan of Care Note [code = 20089-6] Goal Plan of Care Note [code = 95708-8] Goal Plan of Care Note [code = 59797-5] Goal Plan of Care Note [code = 65967-8] Goal Plan of Care Note [code = 59307-9] Goal Plan of Care Note [code = 72957-7] Goal Plan of Care Note [code = 85390-5] Goal Plan of Care Note [code = 03615-5] Goal Plan of Care Note [code = 36310-4] Goal Plan of Care Note [code = 20416-8] Goal Plan of Care Note [code = 49782-7] Goal Plan of Care Note [code = 37419-4] Goal Plan of Care Note [code = 81629-0] Goal Plan of Care Note [code = 46044-1] Goal Plan of Care Note [code = 85866-0] Goal Plan of Care Note [code = 02481-4] Goal Plan of Care Note [code = 02880-0] Goal Plan of Care Note [code = 60377-0] Goal Plan of Care Note [code = 38586-9] Goal Plan of Care Note [code = 87790-1] Goal Plan of Care Note [code = 58381-9] Goal Plan of Care Note [code = 50812-0] Goal Plan of Care Note [code = 94526-8] Goal Plan of Care Note [code = 94756-2] Goal Plan of Care Note [code = 51965-4] Goal Plan of Care Note [code = 96787-2] Goal Plan of Care Note [code = 06323-5] Goal Plan of Care Note [code = 98754-1] Goal Plan of Care Note [code = 88481-4] Goal Plan of Care Note [code = 55001-1] Goal Plan of Care Note [code = 11305-1] Goal Plan of Care Note [code = 38839-4] Goal Plan of Care Note [code = 38141-0] Goal Plan of Care Note [code = 18267-1] Goal Plan of Care Note [code = 46344-0] Goal Plan of Care Note [code = 25880-3] Goal Plan of Care Note [code = 49620-6] Goal Plan of Care Note [code = 77838-1] Goal Plan of Care Note [code = 43579-2] Goal Plan of Care Note [code = 26243-5] Goal Plan of Care Note [code = 76154-7] Goal Plan of Care Note [code = 08076-7] Goal Plan of Care Note [code = 94835-2] Goal Plan of Care Note [code = 87475-4] Goal Plan of Care Note [code = 76638-7] Goal Plan of Care Note [code = 65921-2] Goal Plan of Care Note [code = 02195-1] Goal Plan of Care Note [code = 04983-4] Goal Plan of Care Note [code = 20696-3] Goal Plan of Care Note [code = 10269-2] Goal Plan of Care Note [code = 85009-9] Goal Plan of Care Note [code = 74325-1] Goal Plan of Care Note [code = 58761-9] Goal Plan of Care Note [code = 68495-7] Goal Plan of Care Note [code = 15363-1] Goal Plan of Care Note [code = 51855-5] Goal Plan of Care Note [code = 94417-7] Goal Plan of Care Note [code = 66331-1] Goal Plan of Care Note [code = 85939-9] Goal Plan of Care Note [code = 50066-9] Goal Plan of Care Note [code = 96210-3] Goal Plan of Care Note [code = 43579-4] Goal Plan of Care Note [code = 17663-4] Goal Plan of Care Note [code = 59822-7] Goal Plan of Care Note [code = 40210-3] Goal Plan of Care Note [code = 82869-4] Goal Plan of Care Note [code = 51317-4] Goal Plan of Care Note [code = 70760-3] Goal Plan of Care Note [code = 53958-8] Goal Plan of Care Note [code = 71421-2] Goal Plan of Care Note [code = 02223-9] Goal Plan of Care Note [code = 27375-3] Goal Plan of Care Note [code = 30190-4] Goal Plan of Care Note [code = 25469-7] Goal Plan of Care Note [code = 65496-9] Goal Plan of Care Note [code = 87126-5] Goal Plan of Care Note [code = 80357-7] Goal Plan of Care Note [code = 29779-4] Goal Plan of Care Note [code = 14449-2] Goal Plan of Care Note [code = 04795-7] Goal Plan of Care Note [code = 87922-7] Goal Plan of Care Note [code = 77043-2] Goal Plan of Care Note [code = 66699-9] Goal Plan of Care Note [code = 65007-1] Goal Plan of Care Note [code = 90998-0] Goal Plan of Care Note [code = 77976-7] Goal Plan of Care Note [code = 35872-7] Goal Plan of Care Note [code = 54135-3] Goal Plan of Care Note [code = 82880-2] Goal Plan of Care Note [code = 77862-0] Goal Plan of Care Note [code = 61449-5] Goal Plan of Care Note [code = 20323-7] Goal Plan of Care Note [code = 12523-7] Goal Plan of Care Note [code = 52853-6] Goal Plan of Care Note [code = 91302-3] Goal Plan of Care Note [code = 54844-3] Goal Plan of Care Note [code = 91729-7] Goal Plan of Care Note [code = 70279-2] Goal Plan of Care Note [code = 29988-0] Goal Plan of Care Note [code = 00045-6] Goal Plan of Care Note [code = 12229-1] Goal Plan of Care Note [code = 13032-7] Goal Plan of Care Note [code = 59296-0] Goal Plan of Care Note [code = 92468-0] Goal Plan of Care Note [code = 47166-5] Goal Plan of Care Note [code = 33926-3] Goal Plan of Care Note [code = 02161-8] Goal Plan of Care Note [code = 30683-4] Goal Plan of Care Note [code = 32926-8] Goal Plan of Care Note [code = 03110-0] Goal Plan of Care Note [code = 23081-8] Goal Plan of Care Note [code = 75762-3] Goal Plan of Care Note [code = 05000-5] Goal Plan of Care Note [code = 11119-6] Goal Plan of Care Note [code = 34051-2] Goal Plan of Care Note [code = 05015-4] Goal Plan of Care Note [code = 24578-2] Goal Plan of Care Note [code = 79939-6] Goal Plan of Care Note [code = 69242-6] Goal Plan of Care Note [code = 42462-7] Goal Plan of Care Note [code = 85092-1] Goal Plan of Care Note [code = 21861-0] Goal Plan of Care Note [code = 59448-1] Goal Plan of Care Note [code = 65259-0] Goal Plan of Care Note [code = 85462-8] Goal Plan of Care Note [code = 91116-0] Goal Plan of Care Note [code = 48922-7] Goal Plan of Care Note [code = 79282-1] Goal Plan of Care Note [code = 23448-9] Goal Plan of Care Note [code = 54249-3] Goal Plan of Care Note [code = 00605-2] Goal Plan of Care Note [code = 53425-4] Goal Plan of Care Note [code = 40999-2] Goal Plan of Care Note [code = 82893-0] Goal Plan of Care Note [code = 65947-7] Goal Plan of Care Note [code = 99405-4] Goal Plan of Care Note [code = 23780-9] Goal Plan of Care Note [code = 00827-1] Goal Plan of Care Note [code = 98917-0] Goal Plan of Care Note [code = 88734-2] Encounters Start Date/Time End Date/Time Encounter Type Admission Type Attending Clinicians Care Facility Care Department Encounter ID Source 2024-06-04 04:57:59 Outpatient X [facility] KASI [id number] [facility] 2024-06-23 12:30:00 2024-06-23 13:05:38 Outpatient LASHONDA BRAVO [facility] [id number] [facility] 2024-06-23 12:30:00 2024-06-23 13:05:38 Routine Visit Lashonda Santos [facility] ANIMAL CARE ATTENDANT [facility] & CHILD [facility] 1.2.840.114 350.1.13.10 4.2.7.2.686 [id number] [facility] 2024-06-19 04:13:00 2024-06-19 08:45:00 Outpatient X WARREN, MARIELA CHEN, MARIELA [facility] KASI [id number] [facility] 2024-06-19 04:13:00 2024-06-19 08:45:00 Emergency Anglican, Nadbinu Chen, Mariela L [facility] 1..840.114 350.1.13.10 4.2.7.2.686 [id number] [facility] 2024-06-15 00:00:00 2024-06-15 08:45:36 Abstract Lashonda Santos [facility] ANIMAL CARE ATTENDANT [facility] & CHILD [facility] 1..840.114 350.1.13.10 4.2.7.2.686 [id number] [facility] 2024-06-09 00:00:00 2024-06-09 13:07:20 Letter (Out) Lashonda Santos [facility] ANIMAL CARE ATTENDANT [facility] & CHILD [facility] 1..840.114 350.1.13.10 4.2.7.2.686 [id number] [facility] 2024-06-09 12:30:00 2024-06-09 13:06:31 Outpatient R LASHONDA SANTOS [facility] [id number] [facility] 2024-06-09 12:30:00 2024-06-09 13:06:31 Routine Visit Lashonda Santos [facility] ANIMAL CARE ATTENDANT [facility] & CHILD [facility] 1.2.840.114 350.1.13.10 4.2.7.2.686 [id number] [facility] 2024-06-08 00:00:00 2024-06-08 13:49:04 Abstract Lashonda Santos [facility] ANIMAL CARE ATTENDANT [facility] & CHILD [facility] 1.2.840.114 350.1.13.10 4.2.7.2.686 [id number] [facility] 2024-06-04 01:03:00 2024-06-04 04:45:00 Outpatient X GUERRERO WHITAKER VIEN [facility] KASI [id number] [facility] 2024-06-04 01:03:00 2024-06-04 04:45:00 Emergency Guerrero Whitaker [facility] 1.2.840.114 350.1.13.10 4.2.7.2.686 [id number] [facility] 2024-06-03 00:00:00 2024-06-03 13:29:05 Telephone Lashonda Santos [facility] ANIMAL CARE ATTENDANT [facility] CHILD [facility] 1.2.840.114 350.1.13.10 4.2.7.2.686 [id number] [facility] 2024-06-02 00:00:00 2024-06-02 08:24:06 Telephone Lashonda Santos [facility] ANIMAL CARE ATTENDANT [facility] & CHILD [facility] 1.2.840.114 350.1.13.10 4.2.7.2.686 [id number] [facility] 2024-06-01 12:45:00 2024-06-01 14:40:38 Outpatient R LASHONDA SANTOS [facility] [id number] [facility] 2024-06-01 12:45:00 2024-06-01 14:40:38 Initial Visit Lashonda Santos [facility] ANIMAL CARE ATTENDANT [facility] 1.2.840.114 350.1.13.10 4.2.7.2.686 [id number] [facility] 2024-05-27 12:15:00 2024-05-27 12:15:00 Outpatient R LASHONDA SANTOS [facility] [id number] [facility] 2024-02-09 09:15:00 2024-02-09 09:15:00 Outpatient R DUNGLENAKHANH [facility] [id number] [facility] 2024-02-07 22:27:00 2024-02-07 23:41:00 Emergency X Mamadou MICHAELS [facility] ERT [id number] [facility] 2024-02-07 22:27:00 2024-02-07 23:41:00 Emergency Mamadou Michaels [facility] 1.2.840.114 350.1.13.10 4.2.7.2.686 [id number] [facility] 2023-12-18 14:30:00 2023-12-18 14:30:00 Outpatient R MARIELA CHEN [facility] [id number] [facility] 2023-12-17 16:09:29 2023-12-17 16:09:29 Outpatient SFA SFA [id number] Cj Carlisle 2023-12-12 14:00:00 2023-12-12 14:00:00 Outpatient R MARIELA CHEN [facility] [id number] [facility] 2023-11-11 15:00:20 2023-11-11 15:00:20 Outpatient SFA SFA [id number] Cj [place]isle 2023-10-30 09:20:09 2023-10-30 09:20:09 Outpatient SFA SFA [id number] Cj Carlisle 2023-10-16 14:55:13 2023-10-16 14:55:13 Outpatient SFA SFA [id number] Cj Carlisle 2023-10-13 10:03:24 2023-10-13 10:03:24 Outpatient SFA SFA [id number] Cj [place]isle 2023-09-03 17:01:34 2023-09-03 17:01:34 Outpatient SFA SFA [id number] Cj Carlisle 2023-08-05 17:09:08 2023-08-05 17:09:08 Outpatient SFA SFA [id number] Cj Carlisle 2023-07-11 10:26:43 2023-07-11 10:26:43 Outpatient SFA SFA [id number] Cj Carlisle 2023-07-05 12:46:18 2023-07-05 12:46:18 Outpatient SFA SFA [id number] Cj Carlisle 2023-06-04 16:14:59 2023-06-04 16:14:59 Outpatient SFA SFA [id number] Cj Carlisle 2023-05-21 14:50:27 2023-05-21 14:50:27 Outpatient SFA SFA [id number] Cj Carlisle 2023-05-07 13:29:15 2023-05-07 13:29:15 Outpatient SFA SFA [id number] Cj Carlisle 2023-05-04 14:07:34 2023-05-04 14:07:34 Outpatient SFA SFA [id number] Cj Carlisle 2023-04-30 15:40:18 2023-04-30 15:40:18 Outpatient SFA SFA [id number] Cj Guzman Orestes 2023-04-08 12:40:22 2023-04-08 12:40:22 Outpatient SFA SFA [id number] Cj Guzman Orestes 2023-03-28 13:58:41 2023-03-28 13:58:41 Outpatient SFA SFA [id number] Cj Guzman Orestes 2023-03-24 12:23:25 2023-03-24 12:23:25 Outpatient SFA SFA [id number] Cj Carlisle 2023-03-10 14:14:23 2023-03-10 14:14:23 Outpatient SFA SFA [id number] Cj Carlisle 2023-02-17 13:57:55 2023-02-17 13:57:55 Outpatient SFA SFA [id number] Cj Carlisle 2022-12-31 14:01:12 2022-12-31 14:01:12 Outpatient SFA SFA [id number] Cj Carlisle 2022-10-17 13:22:30 2022-10-17 13:22:30 Outpatient SFA SFA [id number] Cj Carlisle 2022-07-04 16:27:15 2022-07-04 16:27:15 Outpatient SFA SFA [id number] jC Carlisle 2022-06-25 09:30:43 2022-06-25 09:30:43 Outpatient SFA SFA [id number] Cj [place]isle 2022-04-04 00:00:00 2022-04-04 00:00:00 Outpatient Visit 4kc62d2b- 5xw4-7723 -p43i-170 w4lffw731 [id number] 5le94h8r-9 cf4-4333-a 14d-616d2c asj096 2022-03-29 00:00:00 2022-03-29 00:00:00 Outpatient Visit 35l1k0eq- 7x05-399t -aee4-f53 lj5v8w5qi [id number] 36j5f7ry-9 o05-843h-n ee4-f53cf0 d1d1ff 2022-03-23 00:00:00 2022-03-23 00:00:00 Outpatient Visit j67fcx50- c0i0-6c87 -qd15-88g j3h5a579g [id number] y86ndq53-d 8d6-4y66-v t60-44sx3w 6d291h 2022-03-20 00:00:00 2022-03-20 00:00:00 Outpatient Visit 26n6142q- 499b-4139 -r795-t74 u3e398n48 [id number] 20g2175c-5 99b-4139-b 979-d90d6a 082f34 2022-03-11 00:00:00 2022-03-11 00:00:00 Outpatient Visit k7kzt099- 8qd9-9ub8 -9183-471 ltb34i21o [id number] y1sne721-7 be8-4fb1-9 183-471bfe 09f04a 2022-03-05 00:00:00 2022-03-05 00:00:00 Outpatient Visit z2c48209- 7883-4b9d -il6a-74p [id number] [id number] t1g40533-4 883-4b9d-a t2q-52t484 953bc3 2022-02-28 00:00:00 2022-02-28 00:00:00 Outpatient Visit 5ud82y13- ob42-20o1 -n1qn-9pm [id number] 6bw99d96-q r78-62k7-n 3bc-0ld903 226612 5891-07-11 00:00:00 2022-02-25 00:00:00 Outpatient Visit jx0824a2- 03cc-4c8d -8777-5b3 83813f2nx [id number] ik0263a3-8 3cc-4c8d-8 777-8a0067 20b2eb 2019-11-17 00:00:00 2019-11-17 00:00:00 Telephone Guerrero Whitaker [facility] 1.2.840.114 350.1.13.10 4.2.7.2.686 [id number] [facility] 2019-10-25 00:00:00 2019-10-25 00:00:00 Orders Only Doctor Unassigned, [place] [address].840.114 350.1.13.10 4.2.7.2.686 [id number] [facility] 2019-10-21 00:00:00 2019-10-21 00:00:00 Office Visit Arlene Valentino [facility] ANIMAL CARE ATTENDANT Encounter/ [id number] On license of [facility] 2019-10-21 00:00:00 2019-10-21 00:00:00 Office Visit Arlene Valentino [facility] ANIMAL CARE ATTENDANT Encounter/ [id number] [facility] 2019-10-19 00:00:00 2019-10-19 00:00:00 Office Visit Arlene Valentino [facility] ANIMAL CARE ATTENDANT Encounter/ [id number] [facility] 2019-10-19 00:00:00 2019-10-19 00:00:00 [facility] En[facility]/ [id number] [facility] 2019-10-19 00:00:00 2019-10-19 00:00:00 [facility] En[facility]/ [id number] [facility] 2019-10-18 00:00:00 2019-10-18 00:00:00 [facility]END[facility] Encounter/ [id number] [facility] 2019-10-15 00:00:00 2019-10-15 00:00:00 [facility] AN[facility] ATTEND[facility] Encounter/ [id number] [facility] 2019-10-14 00:00:00 2019-10-14 00:00:00 Office Visit Heaven Morrow [facility] Encounter/ [id number] [facility] 2019-10-14 00:00:00 2019-10-14 00:00:00 Office Visit Heaven Morrow [facility] Encounter/ [id number] [facility] 2019-10-14 00:00:00 2019-10-14 00:00:00 [facility] AN[facility] CARE ATTEND[facility] Encounter/ [id number] [facility] 2019-10-14 00:00:00 2019-10-14 00:00:00 Office Visit Heaven Morrow [facility] ANIMAL CARE ATTENDANT Encounter/ [id number] [facility] 2019-10-14 00:00:00 2019-10-14 00:00:00 Office Visit Heaven Morrow Maria Castillo, Stephanie [facility] ANIMAL CARE ATTENDANT Encounter/ [id number] [facility] 2019-10-14 00:00:00 2019-10-14 00:00:00 Office Visit Yina Green [facility] ANIMAL CARE ATTENDANT Encounter/ [id number] [facility] 2019-10-11 00:00:00 2019-10-11 00:00:00 Office Visit Adali Mcpherson [facility] Encounter/ [id number] [facility] 2019-10-07 00:00:00 2019-10-07 00:00:00 Office Visit Responsible Provider, Not Yet Assigned Adali Mcpherson [facility]/ [id number] [facility] 2019-10-07 00:00:00 2019-10-07 00:00:00 Office Visit Responsible Provider, Not Yet Assigned Adali Mcpherson [facility] Encounter/ [id number] [facility] 2019-10-07 00:00:00 2019-10-07 00:00:00 Office Visit Responsible Provider, Not Yet Assigned Adali Mcpherson [facility] Encounter/ [id number] [facility] 2019-10-07 00:00:00 2019-10-07 00:00:00 Office Visit Yenni [facility] Gas Engine Performance Engineer Encounter/ [id number] [facility] 2019-10-07 00:00:00 2019-10-07 00:00:00 Office Visit Land Leasing Information Clerk, Health Advocate Student Shayy Rios [facility] Encounter/ [id number] [facility] 2019-10-07 00:00:00 2019-10-07 00:00:00 Office Visit Colette Chowdary, Tram Dobson, Polina Gross, Shayy [facility] ANIMAL CARE ATTENDANT Encounter/ [id number] On license of [facility] 2019-10-06 00:00:00 2019-10-06 00:00:00 Office Visit Yina Green [facility] ANIMAL CARE ATTENDANT Encounter/ [id number] On license of [facility] 2019-09-30 15:00:00 2019-09-30 15:00:00 Outpatient R EMMY BONILLA [facility] [id number] [facility] 2019-09-16 00:00:00 2019-09-16 00:00:00 Letter (Out) Mike Emmy [facility] [id number] [id number] [id number] 134 [id number] [facility] 2019-08-31 16:27:53 2019-08-31 16:42:53 Routine Visit Emmy Bonilla [facility] [id number] [id number] [id number] 134 [id number] [facility] 2019-08-27 15:00:00 2019-08-27 18:05:33 Outpatient GUILLERMINA ORNELAS [facility] [id number] [facility] 2019-05-03 00:00:00 2019-05-03 00:00:00 Case Management Guerrero Whitaker [facility] Building [id number] [id number] [id number] [facility] 2019-04-21 00:00:00 2019-04-21 00:00:00 Case Management Guerrero Whitaker [facility] Building [id number] [id number] [id number] 134 [id number] [facility] 2019-04-21 00:00:00 2019-04-21 00:00:00 Telephone [facility] 1.2.840.114 350.1.13.10 4.2.7.2.686 [id number] [facility] 2019-04-20 00:00:00 2019-04-20 00:00:00 Telephone [facility] 1.2.840.114 350.1.13.10 4.2.7.2.686 [id number] 134 [id number] [facility] 2019-04-14 15:00:27 2019-04-14 15:15:27 Skirt Clipper Visit 1, Adc Lab [facility] 1.2.840.114 350.1.13.10 4.2.7.2.686 [id number] [facility] 2019-04-14 15:00:00 2019-04-14 15:00:00 Outpatient R [facility] [id number] [facility] 2019-04-14 13:41:25 2019-04-14 14:43:27 Routine Visit [facility] 1.2.840.114 350.1.13.10 4.2.7.2.686 [id number] 134 [id number] [facility] 2019-04-14 00:00:00 2019-04-14 00:00:00 Letter (Out) [facility] 1.2.840.114 350.1.13.10 4.2.7.2.686 [id number] 134 [id number] [facility] 2019-04-14 00:00:00 2019-04-14 00:00:00 Orders Only Doctor Unassigned, [place] [facility] 1.2.840.114 350.1.13.10 4.2.7.2.686 [id number] [facility] 2019-04-07 00:00:00 2019-04-07 00:00:00 Telephone [facility] 1.2.840.114 350.1.13.10 4.2.7.2.686 [id number] 134 [id number] [facility] 2019-04-01 00:00:00 2019-04-01 00:00:00 Telephone [facility] 1.2.840.114 350.1.13.10 4.2.7.2.686 [id number] 134 [id number] [facility] 2019-03-17 10:12:58 2019-03-24 08:59:00 Skirt Clipper Visit 1, Adc Lab [facility] 1.2.840.114 350.1.13.10 4.2.7.2.686 [id number] [facility] 2019-03-17 10:15:00 2019-03-17 10:15:00 Outpatient R [facility] [id number] [facility] 2019-03-17 08:58:48 2019-03-17 10:02:46 Initial Visit [facility] 1.2.840.114 350.1.13.10 4.2.7.2.686 [id number] 134 [id number] [facility] Results Test Description Test Time Test Comments Results Result Co mments Source [facility] > 14 [id number] 13:28:48ORDERING PHYSICIAN: MARIELA CHEN CLINICAL HISTORY: LEAKING FLUID CHECK LETITIA TECHNIQUE: Transabdominal ultrasound of the pelvis was performed.Grayscale, color and spectral Doppler imaging were employed as indicated. TECHNICAL QUALITY: Diagnostic COMPARISON: None FINDINGS: There is a single fetus in c ephalic presentation. Heart rate ismeasured at 122 09/18/2027 beats per minutes. The placenta is locatedposteriorly and fundally. There is an LETITIA of 8.4 cm. BPD: 8.6 cm, 34 weeks 4 days.HC: 34.0 cm, 39weeks 1 days.AC: 31.7 cm, 35 weeks 5 days.FL: 618 cm, 34 weeks 6 days.EFW: [address] [facility] POCT URINALYSIS W SPECIFIC [id number] 17:25:00* Test Item Value Reference Range Interpretation Comme nts POCT U SP GRAV (test code = 3255) . 1.005-1.025 POCT PH U (test code = 3254) 6 mg/dl 5-8 POCT U LEUK EST (test code = 3263) Trace Negative - Negative POCT U NIT (test code = 3262) Neg Negative - Negati ve POCT U PROT (test code = 3259) Trace Negative - Negat devang POCT U GLU (test code = 3256) Nml Negative - Negati ve POCT U KETONE (test code = 3258) None Negative - Neg ative POCT U UROBILI (test code = 3260) . 0.2-1 POCT U BILI (test code = 3261) . Negative - Negat devang POCT U BLD (test code = 3257) Trace Negative - Negati ve POCT U COLOR (test code = 3266) . POCT U APPEAR (test code = 3267) . [facility] CenterRUBELLA SCREEN (WES) [id number] 17:50:58 * Test Item Value Reference Range Interpretation Comme [facility] Rubella screen IgG (test code = 3108605739) Negative Negative ARNULFO (test code = ARNULFO) Positive - Indicat es the patient was exposed to Rubella through infection or vaccination.Negative - Indicates the patient could be susceptible to Rubella infection.Equivocal - A second specimen should be sent. [facility] CenterVZV ANTIBODY [id number] 17:50:58* Test Item Value Reference Range Interpretation Comme [facility] VZV IgG antibody (test code = 70558-7) Equivocal Negative ARNULFO (test code = ARNULFO) Positive - Indicat es the patient was exposed to VZV through infection or vaccination.Negative - Indicates the patient could be susceptible to VZV infection.Equivocal - A second specimen should be sent for testing. [facility] CenterGALV ONLY - SYPHILIS [id number] 16:03:23* Test Item Value Reference Range Interpretation Comme nts Syphilis IgG/IgM (test code = 67873-3) Non-reactive Non-reactive ARNULFO (test code = ARNULFO) Non-reactive - No serologic evidence of T. pallidum infection. Cannot exclude incubating or early syphilis. Submit a second specimen in 2-4 weeks if syphilis is clinically suspected. Equivocal - Further testing to follow. Reactive - Further testing to follow. Lab Interpretation (test code = 19391-3) Normal [facility] CenterHIV 1/2 AG-AB WITH [id number] 10:09:25* Test Item Value Reference Range Interpretation Comme nts HIV Semi-quantitative (test code = 82238-3) 0.10 Negative ARNULFO (test code = ARNULFO) Non-reactive for HIV-1 antigen and HIV-1/HIV-2 antibodies. ?No laboratory evidence of HIV infection. ?Repeat in 2-4 weeks if acute HIV infection is suspected. [facility] CenterHCV [id number] 08:51:31* Test Item Value Reference Range Interpretation Comme nts HCV Ab (test code = 54048-5) Negative HCV Semi-Quantitative (test code = 66308-2) 0.01 [facility] CenterHEPATITIS B SURFACE [id number] 08:33:53 * Test Item Value Reference Range Interpretation Comme nts HBsAg Semi-Quantitative (ruslan t code = 5195-3) 0.12 Negative [facility] CenterGlucose 1 Hour Post [id number] 05:51:36* Test Item Value Reference Range Interpretation Comme nts GLUC 1 HR (test code = 1038862111) 89 mg/dL 120-170 L Lab Interpretation (test cod e = 72453-4) Abnormal [facility] CenterCBC WITH [id number] 05:33:31* Test Item Value Reference Range Interpretation [...] 32.5 g/dL 31.6-35.1 RDW-SD (test code = 76684-7) 36.8 fL 39.0-49.9 L RDW-CV (test code = 788-0) 12.7 % 12.0-15.5 PLT (test code = 777-3) 404 166-358 H MPV (test code = 52476-7) 9.2 fL 9.5-12.9 L NRBC/100 WBC (test code = 0847244840) 0.0 0.0-10.0 NRBC x10^3 (test code = 5013090196) See_Comment [Automated messa ge] The system which generated this result transmitted reference range: 10*3/?L. The reference range was not used to interpret this result as normal/abnormal. GRAN MAT (NEUT) % (test code = 770-8) 75.0 % IMM GRAN % (test code = 7651098589) 0.50 % LYMPH % (test code = 736-9) 16.1 % MONO % (test code = 5905-5) 7.5 % EOS % (test code = 713-8) 0.6 % BASO % (test code = 706-2) 0.3 % GRAN MAT x10^3(ANC) (test code = 6642102806) 8.23 10*3/uL 1.88-7.09 H IMM GRAN x10^3 (test code = 3030966759) 0.05 10*3/uL 0.00-0.06 LYMPH x10^3 (test code = 731-0) 1.76 10*3/uL 1.32-3.29 MONO x10^3 (test code = 742-7) 0.82 10*3/uL 0.33-0.92 EOS x10^3 (test code = 711-2) 0.07 10*3/uL 0.03-0.39 BASO x10^3 (test code = 704-7) 0.03 10*3/uL 0.01-0.07 Lab Interpretation (test code = 38170-6) Abnormal [facility] CenterPRENATAL WORKUP, BLOOD [id number] 05:01:00 * Test Item Value Reference Range Interpretation Comme nts ABO & RH (test code = 20) A POSITIVE IAT (test code = 1185) Negative [facility] CenterPOIA [id number] 18:09:00* Test Item Value Reference Range Interpretation Comme nts POCT PREG (test code = 1605) Positive On board controls acceptable with C Line (test code = 3574) Yes POCT PREG LOT # (test code = 3575) POCT PREG TEST DATE ( test code = 3576) [facility] Urinalysis w/o Specific [id number] 18:09:00* Test Item Value Reference Range Interpretation [...] = 3257) neg Negative - Negati ve [facility] CenterCHLAMYDIA, NAAT, [id number] 12:29:30* Test Item Value Reference Range Interpretation Comme nts CHLAMYDIA, NAAT, URINE (test code = 54382) POSITIVE NEGATIVE A Testing is perfo rmed with Elpidio MIRA 6800/8800 systems usingreal-time polymerase chain reaction (PCR) method. GONORRHEA, NAAT, [id number] 12:29:30* Test Item Value Reference Range Interpretation Comme nts GONORRHEA, NAAT, URINE (test code = 78207) NEGATIVE NEGATIVE Testing is perfo rmed with Elpidio MIRA 6800/8800 systems usingreal-time polymerase chain reaction (PCR) method. A negative result does not exclude low level infection, specimensampling error, or collection error. RPR REFLEX TO T. PALLIDUM - [id number] 04:03:32* Test Item Value Reference Range Interpretation Comme nts RPR (test code = 21025) NON-REACTIVE NON-REACTIVE RPR TITER (test code = 3500) NOT INDIC. TITER NOT INDIC. HIV 1/2 4TH GEN, RFLX [id number] 04:01:26* Test Item Value Reference Range Interpretation Comme nts HIV 1/2 4TH GEN, RFLX CONF ( test code = 3514) NON-REACTIVE NON-REACTIVE HEPATITIS PANEL, [id number] 04:01:26* Test Item Value Reference Range Interpretation Comme nts HEPATITIS A IgM (test code = 33983) NON-REACTIVE NON-REACTIVE HEPATITIS B CORE IgM (test code = 4644) NON-REACTIVE NON-REACTIVE HEPATITIS B SURF AG (test code = 2739) NON-REACTIVE NON-REACTIVE HEPATITIS C ANTIBODY (test code = 4675) NON-REACTIVE NON-REACTIVE INTERPRETATION HEPATITIS A: (test code = 2552) (NOTE) Hepatitis A sero logy shows no evidence of acute hepatitis A. INTERPRETATION HEPATITIS B: (test code = 73748) (NOTE) Hepatitis B sero logy shows no evidence of acute hepatitis B andno indication of exposure to hepatitis B virus in the previous huyen eight months. INTERPRETATION HEPATITIS C: (test code = 18421) (NOTE) Hepatitis C sero logy shows no evidence of exposure to hepatitisC virus at this time. It can take up to 12 months after exposure tothe hepatitis C virus for antibodies to become detectable in the blood in certain patients. UNLESS OTHERWISE INDICATED, ALL TESTING PERFORMED AT [facility] [address] [place] [address] STERILISATION TECHNICIAN: SHAYY SANTOS M.D. CLIA NUMBER [id number] [facility] [place] [place]. [id number] CULTURE, ROUTINE SENSITIVITY ON [id number] 14:09:05SPECIMEN NUMBER: [id number] CULTURE, ROUTINE SENSITIVITY ON ALL SPECIMEN NUMBER: [id number] SOURCE: OTHER SOURCE REPORT STATUS: FINAL FINAL REPORT: 07/09/2023 NO SPECIMEN RECEIVED FOR TESTING. CHARGES DELETED.HIV 1/2 4TH GEN, RFLX [id number] 02:08:57* Test Item Value Reference Range Interpretation Comme nts HIV 1/2 4TH GEN, RFLX CONF ( test code = 3514) NON-REACTIVE NON-REACTIVE HEPATITIS PANEL, [id number] 02:08:57* Test Item Value Reference Range Interpretation Comme nts HEPATITIS A IgM (test code = 30828) NON-REACTIVE NON-REACTIVE HEPATITIS B CORE IgM (test code = 4644) NON-REACTIVE NON-REACTIVE HEPATITIS B SURF AG (test code = 2739) NON-REACTIVE NON-REACTIVE HEPATITIS C ANTIBODY (test code = 4675) NON-REACTIVE NON-REACTIVE INTERPRETATION HEPATITIS A: (test code = 2552) (NOTE) Hepatitis A serology shows no evidence of acute hepatitis A. INTERPRETATION HEPATITIS B: (test code = 21765) (NOTE) Hepatitis B serology shows no evidence of acute hepatitis B andno indication of exposure to hepatitis B virus in the previous huyen eight months. INTERPRETATION HEPATITIS C: (test code = 83910) (NOTE) Hepatitis C serology shows no evidence of exposure to hepatitisC virus at this time. It can take up to 12 months after exposure tothe hepatitis C virus for antibodies to become detectable in the blood in certain patients. [id number] 23:37:07* Test Item Value Reference Range Interpretation Comme nts RPR RESULT (test code = 3501) NON-REACTIVE NON-REACTIVE RPR TITER (test code = 3500) NOT INDIC. TITER NOT INDIC. CT/NG, NAAT, [id number] 14:03:18* Test Item Value Reference Range Interpretation Comme nts CHLAMYDIA, NAAT, URINE (test code = 07790) NEGATIVE NEGATIVE Testing is perfo rmed with Elpidio MIRA 6800/8800 systems usingreal-time polymerase chain reaction (PCR) method. A negative result does not exclude low level infection, specimensampling error, or collection error. GONORRHEA, NAAT, URINE (test code = 78187) NEGATIVE NEGATIVE Testing is perfo rmed with Elpidio MIRA 6800/8800 systems usingreal-time polymerase chain reaction (PCR) method. A negative result does not exclude low level infection, specimensampling error, or collection error. UNLESS OTHERWISE INDICATED, ALL TESTING PERFORMED AT [facility] [address] [place] [address] STERILISATION TECHNICIAN: SHAYY SANTOS M.D. IA NUMBER [id number] [facility] [place]. [id number] CULTURE, [id number] 11:36:54SPECIMEN NUMBER: [id number] CULTURE, URINE SPECIMEN NUMBER: [id number] SPECIMEN COMMENT: URINE SOURCE: URINE REPORT STATUS: FINAL FINAL REPORT: 07/07/2023 50-100,000 CFU/ML UROGENITAL LINDSAY PRESENT NO C OMMON PATHOGENSTRICHOMONAS, NAAT, [id number] 16:23:16* Test Item Value Reference Range Interpretation Comme nts TRICHOMONAS, NAAT, URINE (test code = 45172) NEGATIVE NEGATIVE Testing is perfo rmed with Elpidio MIRA 6800/8800 method usingreal-time polymerase chain reaction (PCR) method. A negative result does not exclude low level infection, specimensampling error, or collection error. CHLAMYDIA, NAAT, [id number] 16:22:13* Test Item Value Reference Range Interpretation Comme nts CHLAMYDIA, NAAT, URINE (test code = 89008) POSITIVE NEGATIVE A Testing is perfo rmed with Elpidio MIRA 6800/8800 systems usingreal-time polymerase chain reaction (PCR) method. GONORRHEA, NAAT, [id number] 16:22:13* Test Item Value Reference Range Interpretation Comme nts GONORRHEA, NAAT, URINE (test code = 21449) NEGATIVE NEGATIVE Testing is perfo rmed with Elpidio MIRA 6800/8800 systems usingreal-time polymerase chain reaction (PCR) method. A negative result does not exclude low level infection, specimensampling error, or collection error. RPR REFLEX TO T. PALLIDUM - [id number] 05:31:29* Test Item Value Reference Range Interpretation Comme nts RPR (test code = 86989) NON-REACTIVE NON-REACTIVE RPR TITER (test code = 3500) NOT INDIC. TITER NOT INDIC. HIV 1/2 4TH GEN, RFLX [id number] 05:05:42* Test Item Value Reference Range Interpretation Comme nts HIV 1/2 4TH GEN, RFLX CONF ( test code = 3514) NON-REACTIVE NON-REACTIVE HEPATITIS PANEL, [id number] 05:05:42* Test Item Value Reference Range Interpretation Comme nts HEPATITIS A IgM (test code = 97515) NON-REACTIVE NON-REACTIVE HEPATITIS B CORE IgM (test code = 4644) NON-REACTIVE NON-REACTIVE HEPATITIS B SURF AG (test code = 2739) NON-REACTIVE NON-REACTIVE HEPATITIS C ANTIBODY (test code = 4675) NON-REACTIVE NON-REACTIVE INTERPRETATION HEPATITIS A: (test code = 2552) (NOTE) Hepatitis A sero logy shows no evidence of acute hepatitis A. INTERPRETATION HEPATITIS B: (test code = 96772) (NOTE) Hepatitis B sero logy shows no evidence of acute hepatitis B andno indication of exposure to hepatitis B virus in the previous huyen eight months. INTERPRETATION HEPATITIS C: (test code = 72683) (NOTE) Hepatitis C sero logy shows no evidence of exposure to hepatitisC virus at this time. It can take up to 12 months after exposure tothe hepatitis C virus for antibodies to become detectable in the blood in certain patients. [facility] has important pathology staff changes effective 10/16/2022. New pathology staff will provide uninterrupted, excellent patient care and clinical consultation. See URL: [email or web address]. UNLESS OTHERWISE INDICATED, ALL TESTING PERFORMED AT [employer] [facility] PATHOLOGY xAd, Search to Phone. [address] [address] STERILISATION TECHNICIAN: CAMPOS ALVARENGA M.D. CLIA NUMBER [id number] [facility] [place]. [id number] CHLAMYDIA, NAAT, [id number] 13:11:20* Test Item Value Reference Range Interpretation Comme nts CHLAMYDIA, NAAT (test code = 93309) NEGATIVE NEGATIVE IMPORTANT NO KWAKU: SEE ANNOUNCEMENT AT [email or web address] Note: Assay methodology is nucleic acid amplification by molded goods controls operator mediated amplification (TMA) utilizing the Aptima Combo 2 Assay. GONORRHEA, NAAT, [id number] 13:11:20* Test Item Value Reference Range Interpretation Comme nts GONORRHEA, NAAT (test code = 20411) NEGATIVE NEGATIVE IMPORTANT NO KWAKU: SEE ANNOUNCEMENT AT [email or web address] Note: Assay methodology is nucleic acid amplification by molded goods controls operator mediated amplification (TMA) utilizing the Aptima Combo 2 Assay. UNLESS OTHERWISE INDICATED, ALL TESTING PERFORMED ATCN[facility] x[facility], [facility]. [address] [place] [id number] STERILISATION TECHNICIAN: CAMPOS ALVARENGA M.D. CLIA NUMBER [id number] [facility] [place]. [id number] CHLAMYDIA, AMPLIFIED, [id number] 00:00:00* Test Item Value Reference Range Interpretation Comme nts CHLAMYDIA, NAAT (test code = 21268) NEGATIVE GC, AMPLIFIED, [id number] 00:00:00* Test Item Value Reference Range Interpretation Comme nts GONORRHEA, NAAT (test code = 48651) NEGATIVE CHLAMYDIA, AMPLIFIED, [id number] 00:00:00* Test Item Value Reference Range Interpretation Comme nts CHLAMYDIA, NAAT (test code = 43002) NEGATIVE GC, AMPLIFIED, [id number] 00:00:00* Test Item Value Reference Range Interpretation Comme nts GONORRHEA, NAAT (test code = 71799) NEGATIVE CHLAMYDIA, AMPLIFIED, [id number] 00:00:00* Test Item Value Reference Range Interpretation Comme nts CHLAMYDIA, NAAT (test code = 18075) NEGATIVE GC, AMPLIFIED, [id number] 00:00:00* Test Item Value Reference Range Interpretation Comme nts GONORRHEA, NAAT (test code = 15574) NEGATIVE CHLAMYDIA, AMPLIFIED, [id number] 00:00:00* Test Item Value Reference Range Interpretation Comme nts CHLAMYDIA, NAAT (test code = 28135) NEGATIVE GC, AMPLIFIED, [id number] 00:00:00* Test Item Value Reference Range Interpretation Comme nts GONORRHEA, NAAT (test code = 37826) NEGATIVE CHLAMYDIA, AMPLIFIED, [id number] 00:00:00* Test Item Value Reference Range Interpretation Comme nts CHLAMYDIA, NAAT (test code = 56407) NEGATIVE GC, AMPLIFIED, [id number] 00:00:00* Test Item Value Reference Range Interpretation Comme nts GONORRHEA, NAAT (test code = 73921) NEGATIVE CHLAMYDIA, AMPLIFIED, [id number] 00:00:00* Test Item Value Reference Range Interpretation Comme nts CHLAMYDIA, NAAT (test code = 13116) NEGATIVE GC, AMPLIFIED, [id number] 00:00:00* Test Item Value Reference Range Interpretation Comme nts GONORRHEA, NAAT (test code = 32169) NEGATIVE CHLAMYDIA, AMPLIFIED, [id number] 00:00:00* Test Item Value Reference Range Interpretation Comme nts CHLAMYDIA, NAAT (test code = 78095) NEGATIVE GC, AMPLIFIED, [id number] 00:00:00* Test Item Value Reference Range Interpretation Comme nts GONORRHEA, NAAT (test code = 30302) NEGATIVE CHLAMYDIA, AMPLIFIED, [id number] 00:00:00* Test Item Value Reference Range Interpretation Comme nts CHLAMYDIA, NAAT (test code = 44628) NEGATIVE GC, AMPLIFIED, [id number] 00:00:00* Test Item Value Reference Range Interpretation Comme nts GONORRHEA, NAAT (test code = 26426) NEGATIVE CT/NG, NAAT, [id number] 19:10:11* Test Item Value Reference Range Interpretation Comme nts GONORRHEA, NAAT (test code = 66460) NEGATIVE NEGATIVE IMPORTANT NO KWAKU: SEE ANNOUNCEMENT AT [email or web address] Note: Assay methodology is nucleic acid amplification by molded goods controls operator mediated amplification (TMA) utilizing the Aptima Combo 2 Assay. CHLAMYDIA, NAAT (test code = 09066) POSITIVE NEGATIVE A IMPORTANT NO KWAKU: SEE ANNOUNCEMENT AT [email or web address] Note: Assay methodology is nucleic acid amplification by molded goods controls operator mediated amplification (TMA) utilizing the Aptima Combo 2 Assay. UNLESS OTHERWISE INDICATED, ALL TESTING PERFORMED [facility] [address] [place] [address] STERILISATION TECHNICIAN: CAMPOS ALVARENGA M.D. CLIA NUMBER [id number] [facility] [place]. [id number] GC AND CHLAMYDIA, AMPLIFIED, [id number] 00:00:00* Test Item Value Reference Range Interpretation Comme nts GONORRHEA, NAAT (test code = 11647) NEGATIVE CHLAMYDIA, NAAT (test code = 35685) POSITIVE GC AND CHLAMYDIA, AMPLIFIED, [id number] 00:00:00* Test Item Value Reference Range Interpretation Comme nts GONORRHEA, NAAT (test code = 07941) NEGATIVE CHLAMYDIA, NAAT (test code = 89861) POSITIVE GC AND CHLAMYDIA, AMPLIFIED, [id number] 00:00:00* Test Item Value Reference Range Interpretation Comme nts GONORRHEA, NAAT (test code = 52833) NEGATIVE CHLAMYDIA, NAAT (test code = 58803) POSITIVE GC AND CHLAMYDIA, AMPLIFIED, [id number] 00:00:00* Test Item Value Reference Range Interpretation Comme nts GONORRHEA, NAAT (test code = 85413) NEGATIVE CHLAMYDIA, NAAT (test code = 04745) POSITIVE GC AND CHLAMYDIA, AMPLIFIED, [id number] 00:00:00* Test Item Value Reference Range Interpretation Comme nts GONORRHEA, NAAT (test code = 73726) NEGATIVE CHLAMYDIA, NAAT (test code = 24779) POSITIVE GC AND CHLAMYDIA, AMPLIFIED, [id number] 00:00:00* Test Item Value Reference Range Interpretation Comme nts GONORRHEA, NAAT (test code = 47433) NEGATIVE CHLAMYDIA, NAAT (test code = 92427) POSITIVE GC AND CHLAMYDIA, AMPLIFIED, [id number] 00:00:00* Test Item Value Reference Range Interpretation Comme nts GONORRHEA, NAAT (test code = 23786) NEGATIVE CHLAMYDIA, NAAT (test code = 04663) POSITIVE GC AND CHLAMYDIA, AMPLIFIED, [id number] 00:00:00* Test Item Value Reference Range Interpretation Comme nts GONORRHEA, NAAT (test code = 97619) NEGATIVE CHLAMYDIA, NAAT (test code = 18952) POSITIVE HIV AB/AG COMBO RFLX [id number] 00:00:00* Test Item Value Reference Range Interpretation Comme nts HIV 1/2 4TH GEN, RFLX CONF ( test code = 3514) NON-REACTIVE ACUTE HEPATITIS [id number] 00:00:00* Test Item Value Reference Range Interpretation Comme nts HEPATITIS A IgM (test code = 60500) NON-REACTIVE HEPATITIS B CORE IgM (test c ode = 4644) NON-REACTIVE HEPATITIS B SURF AG (test co de = 5699) NON-REACTIVE HEPATITIS C ANTIBODY (test c ode = 4675) NON-REACTIVE INTERPRETATION HEPATITIS A: (test code = 2552) (NOTE) INTERPRETATION HEPATITIS B: (test code = 84094) (NOTE) INTERPRETATION HEPATITIS C: (test code = 01755) (NOTE) GC, AMPLIFIED, [id number] 00:00:00* Test Item Value Reference Range Interpretation Comme nts GONORRHEA, NAAT (test code = 62756) NEGATIVE CHLAMYDIA, AMPLIFIED, [id number] 00:00:00* Test Item Value Reference Range Interpretation Comme nts CHLAMYDIA, NAAT (test code = 40167) POSITIVE HIV AB/AG COMBO RFLX [id number] 00:00:00* Test Item Value Reference Range Interpretation Comme nts HIV 1/2 4TH GEN, RFLX CONF ( test code = 3514) NON-REACTIVE ACUTE HEPATITIS [id number] 00:00:00* Test Item Value Reference Range Interpretation Comme nts HEPATITIS A IgM (test code = 81430) NON-REACTIVE HEPATITIS B CORE IgM (test c ode = 4644) NON-REACTIVE HEPATITIS B SURF AG (test co de = 2739) NON-REACTIVE HEPATITIS C ANTIBODY (test c ode = 4675) NON-REACTIVE INTERPRETATION HEPATITIS A: (test code = 2552) (NOTE) INTERPRETATION HEPATITIS B: (test code = 10947) (NOTE) INTERPRETATION HEPATITIS C: (test code = 27618) (NOTE) GC, AMPLIFIED, [id number] 00:00:00* Test Item Value Reference Range Interpretation Comme nts GONORRHEA, NAAT (test code = 24633) NEGATIVE CHLAMYDIA, AMPLIFIED, [id number] 00:00:00* Test Item Value Reference Range Interpretation Comme nts CHLAMYDIA, NAAT (test code = 14718) POSITIVE HIV AB/AG COMBO RFLX [id number] 00:00:00* Test Item Value Reference Range Interpretation Comme nts HIV 1/2 4TH GEN, RFLX CONF ( test code = 3514) NON-REACTIVE ACUTE HEPATITIS [id number] 00:00:00* Test Item Value Reference Range Interpretation Comme nts HEPATITIS A IgM (test code = 36500) NON-REACTIVE HEPATITIS B CORE IgM (test c ode = 4644) NON-REACTIVE HEPATITIS B SURF AG (test co de = 2739) NON-REACTIVE HEPATITIS C ANTIBODY (test c ode = 4675) NON-REACTIVE INTERPRETATION HEPATITIS A: (test code = 2552) (NOTE) INTERPRETATION HEPATITIS B: (test code = 75769) (NOTE) INTERPRETATION HEPATITIS C: (test code = 37388) (NOTE) GC, AMPLIFIED, [id number] 00:00:00* Test Item Value Reference Range Interpretation Comme nts GONORRHEA, NAAT (test code = 65976) NEGATIVE CHLAMYDIA, AMPLIFIED, [id number] 00:00:00* Test Item Value Reference Range Interpretation Comme nts CHLAMYDIA, NAAT (test code = 81277) POSITIVE HIV AB/AG COMBO RFLX [id number] 00:00:00* Test Item Value Reference Range Interpretation Comme nts HIV 1/2 4TH GEN, RFLX CONF ( test code = 3514) NON-REACTIVE ACUTE HEPATITIS [id number] 00:00:00* Test Item Value Reference Range Interpretation Comme nts HEPATITIS A IgM (test code = 30251) NON-REACTIVE HEPATITIS B CORE IgM (test c ode = 4644) NON-REACTIVE HEPATITIS B SURF AG (test co de = 2739) NON-REACTIVE HEPATITIS C ANTIBODY (test c ode = 4675) NON-REACTIVE INTERPRETATION HEPATITIS A: (test code = 2552) (NOTE) INTERPRETATION HEPATITIS B: (test code = 25351) (NOTE) INTERPRETATION HEPATITIS C: (test code = 08272) (NOTE) GC, AMPLIFIED, [id number] 00:00:00* Test Item Value Reference Range Interpretation Comme nts GONORRHEA, NAAT (test code = 18621) NEGATIVE CHLAMYDIA, AMPLIFIED, [id number] 00:00:00* Test Item Value Reference Range Interpretation Comme nts CHLAMYDIA, NAAT (test code = 25061) POSITIVE HIV AB/AG COMBO RFLX [id number] 00:00:00* Test Item Value Reference Range Interpretation Comme nts HIV 1/2 4TH GEN, RFLX CONF ( test code = 3514) NON-REACTIVE ACUTE HEPATITIS [id number] 00:00:00* Test Item Value Reference Range Interpretation Comme nts HEPATITIS A IgM (test code = 80083) NON-REACTIVE HEPATITIS B CORE IgM (test c ode = 4644) NON-REACTIVE HEPATITIS B SURF AG (test co de = 2739) NON-REACTIVE HEPATITIS C ANTIBODY (test c ode = 4675) NON-REACTIVE INTERPRETATION HEPATITIS A: (test code = 2552) (NOTE) INTERPRETATION HEPATITIS B: (test code = 96115) (NOTE) INTERPRETATION HEPATITIS C: (test code = 73152) (NOTE) GC, AMPLIFIED, [id number] 00:00:00* Test Item Value Reference Range Interpretation Comme nts GONORRHEA, NAAT (test code = 21628) NEGATIVE CHLAMYDIA, AMPLIFIED, [id number] 00:00:00* Test Item Value Reference Range Interpretation Comme nts CHLAMYDIA, NAAT (test code = 92463) POSITIVE HIV AB/AG COMBO RFLX [id number] 00:00:00* Test Item Value Reference Range Interpretation Comme nts HIV 1/2 4TH GEN, RFLX CONF ( test code = 3514) NON-REACTIVE ACUTE HEPATITIS [id number] 00:00:00* Test Item Value Reference Range Interpretation Comme nts HEPATITIS A IgM (test code = 46495) NON-REACTIVE HEPATITIS B CORE IgM (test c ode = 4644) NON-REACTIVE HEPATITIS B SURF AG (test co de = 2739) NON-REACTIVE HEPATITIS C ANTIBODY (test c ode = 4675) NON-REACTIVE INTERPRETATION HEPATITIS A: (test code = 2552) (NOTE) INTERPRETATION HEPATITIS B: (test code = 89009) (NOTE) INTERPRETATION HEPATITIS C: (test code = 57859) (NOTE) GC, AMPLIFIED, [id number] 00:00:00* Test Item Value Reference Range Interpretation Comme nts GONORRHEA, NAAT (test code = 71212) NEGATIVE CHLAMYDIA, AMPLIFIED, [id number] 00:00:00* Test Item Value Reference Range Interpretation Comme nts CHLAMYDIA, NAAT (test code = 67982) POSITIVE HIV AB/AG COMBO RFLX [id number] 00:00:00* Test Item Value Reference Range Interpretation Comme nts HIV 1/2 4TH GEN, RFLX CONF ( test code = 3514) NON-REACTIVE ACUTE HEPATITIS [id number] 00:00:00* Test Item Value Reference Range Interpretation Comme nts HEPATITIS A IgM (test code = 47019) NON-REACTIVE HEPATITIS B CORE IgM (test c ode = 4644) NON-REACTIVE HEPATITIS B SURF AG (test co de = 2739) NON-REACTIVE HEPATITIS C ANTIBODY (test c ode = 4675) NON-REACTIVE INTERPRETATION HEPATITIS A: (test code = 2552) (NOTE) INTERPRETATION HEPATITIS B: (test code = 91639) (NOTE) INTERPRETATION HEPATITIS C: (test code = 49433) (NOTE) HIV AB/AG COMBO RFLX [id number] 00:00:00* Test Item Value Reference Range Interpretation Comme nts HIV 1/2 4TH GEN, RFLX CONF ( test code = 3514) NON-REACTIVE GC, AMPLIFIED, [id number] 00:00:00* Test Item Value Reference Range Interpretation Comme nts GONORRHEA, NAAT (test code = 19006) NEGATIVE ACUTE HEPATITIS [id number] 00:00:00* Test Item Value Reference Range Interpretation Comme nts HEPATITIS A IgM (test code = 26845) NON-REACTIVE HEPATITIS B CORE IgM (test c ode = 4644) NON-REACTIVE HEPATITIS B SURF AG (test co de = 2739) NON-REACTIVE HEPATITIS C ANTIBODY (test c ode = 4675) NON-REACTIVE INTERPRETATION HEPATITIS A: (test code = 2552) (NOTE) INTERPRETATION HEPATITIS B: (test code = 88733) (NOTE) INTERPRETATION HEPATITIS C: (test code = 51839) (NOTE) GC, AMPLIFIED, [id number] 00:00:00* Test Item Value Reference Range Interpretation Comme nts GONORRHEA, NAAT (test code = 84173) NEGATIVE CHLAMYDIA, AMPLIFIED, [id number] 00:00:00* Test Item Value Reference Range Interpretation Comme nts CHLAMYDIA, NAAT (test code = 26321) POSITIVE CHLAMYDIA, AMPLIFIED, [id number] 00:00:00* Test Item Value Reference Range Interpretation Comme nts CHLAMYDIA, NAAT (test code = 87002) POSITIVE erythrocyte (RBC) [id number] 15:42:00* Test Item Value Reference Range Interpretation Comme nts erythrocyte (RBC) count (ruslan t code = 67) 4.30 X10E6/UL 3.77-5.28 [facility], [id number] 15:42:00* Test Item Value Reference Range Interpretation Comme nts leukocyte count, blood (test code = 68) 9.7 X10E3/UL 3.4-10.8 [facility]hepatitis B surface [id number] 15:42:00* Test Item Value Reference Range Interpretation Comme nts hepatitis B surface antigen (test code = 79) Negative Negative [facility] HealthRh [id number] 15:42:00* Test Item Value Reference Range Interpretation Comme nts Rh antibody (test code = 256) Negative Negative [facility] Hospitalblood glucose, 1 hour after 50 gm oral [id number] 15:42:00* Test Item Value Reference Range Interpretation Comme nts blood glucose, 1 hour after 50 gm oral glucose (test code = 1039) 111 mg/dL 65-139 [facility] HospitalHIV-CMIA (Chemiluminescent Microparticle Immuno Assay) 2019-10-14 15:42:00* Test Item Value Reference Range Interpretation Comme nts HIV-CMIA (Chemiluminescent Microparticle Immuno Assay) (test code = 029486) Non Reactive Non Reactive [facility] Hospitalrapid plasma reagin antibody, [id number] 15:42:00* Test Item Value Reference Range Interpretation Comme nts rapid plasma reagin antibody , serum (test code = 308) Non Reactive Non Reactive [facility] Hospitalrubella antibody, serum, [id number] 15:42:00* Test Item Value Reference Range Interpretation Comme nts rubella antibody, serum, IgG (test code = 81) 1.33 Immune >0.99 [facility] HospitalRh [id number] 15:42:00* Test Item Value Reference Range Interpretation Comme nts Rh antigen (test code = 255) Positive [facility] HospitalABO blood [id number] 15:42:00* Test Item Value Reference Range Interpretation Comme nts ABO blood group (test code = 116) A [facility] HospitalNeisseria gonorrhoeae DNA [id number] 15:42:00* Test Item Value Reference Range Interpretation Comme nts Neisseria gonorrhoeae DNA pr obe (test code = 36275-9) Negative Negative [facility] Hospitalchlamydia DNA [id number] 15:42:00* Test Item Value Reference Range Interpretation Comme nts chlamydia DNA probe (test co de = 26184-9) Negative Negative [facility] Hospitalimmature granulocytes, percentage of total cells, blood 2019-10-14 15:42:00* Test Item Value Reference Range Interpretation Comme nts immature granulocytes, perce ntage of total cells, blood (test code = 033373) 0 % [facility] Healthbasophil count, [id number] 15:42:00* Test Item Value Reference Range Interpretation Comme nts basophil count, absolute (te st code = 94623) 0.0 x10E3/uL 0.0-0.3 [facility] HealthEosinophil Absolute [id number] 15:42:00* Test Item Value Reference Range Interpretation Comme nts Eosinophil Absolute Count (t est code = 687562) 0.0 X10E3/UL 0.0-0.4 [facility] Healthmonocyte count, blood, [id number] 15:42:00* Test Item Value Reference Range Interpretation Comme nts monocyte count, blood, autom ated (test code = 3076) 0.8 X10E3/UL 0.1-0.9 [facility] Healthlymphocyte count, blood, [id number] 15:42:00* Test Item Value Reference Range Interpretation Comme nts lymphocyte count, blood, automated (test code = 3074) 1.2 X10E3/UL 0.7-3.1 [facility] HospitalAbsolute [id number] 15:42:00* Test Item Value Reference Range Interpretation Comme nts Absolute Neutrophils (test c ode = 20804) 7.7 X10E3/UL 1.4-7.0 H [facility] Healthbasophils as percent of blood [id number] 15:42:00* Test Item Value Reference Range Interpretation Comme nts basophils as percent of bloo d leukocytes (test code = 2426) 0 % [facility] Healtheosinophils as percent of blood sybiujured3315-23-19 15:42:00* Test Item Value Reference Range Interpretation Comme nts eosinophils as percent of bl ood leukocytes (test code = 4170) 0 % [facility] Healthmonocytes as percent of blood wlusqxejbx4929-30-34 15:42:00* Test Item Value Reference Range Interpretation Comme nts monocytes as percent of bloo d leukocytes (test code = 2421) 8 % [facility] Healthlymphocytes as percent of blood fbobvzsmed3004-23-10 15:42:00* Test Item Value Reference Range Interpretation Comme nts lymphocytes as percent of bl ood leukocytes (test code = 317) 12 % [facility] Hospitalneutrophils as percent of blood skwqustqqf4883-15-38 15:42:00* Test Item Value Reference Range Interpretation Comme nts neutrophils as percent of bl ood leukocytes (test code = 316) 80 % [facility] Hospitalplatelet [id number] 15:42:00* Test Item Value Reference Range Interpretation Comme nts platelet count (test code = 66) 422 X10E3/UL 150-450 [facility] Hospitalred blood cell distribution [id number] 15:42:00* Test Item Value Reference Range Interpretation Comme nts red blood cell distribution width (test code = 1030) 14.1 % 11.7-15.4 [facility] corpuscular hemoglobin concentration, [id number] 15:42:00* Test Item Value Reference Range Interpretation Comme nts mean corpuscular hemoglobin concentration, RBC (test code = 1029) 32.3 G/DL 31.5-35.7 [facility] corpuscular hemoglobin, [id number] 15:42:00* Test Item Value Reference Range Interpretation Comme nts mean corpuscular hemoglobin, RBC (test code = 1031) 24.2 pg 26.6-33.0 L [facility] corpuscular volume, [id number] 15:42:00* Test Item Value Reference Range Interpretation Comme nts mean corpuscular volume, RBC (test code = 315) 75 fL 79-97 L [facility] Hospitalhematocrit, [id number] 15:42:00* Test Item Value Reference Range Interpretation Comme nts hematocrit, blood (test code = 64) 32.2 % 34.0-46.6 L [facility] Hospitalhemoglobin, [id number] 15:42:00* Test Item Value Reference Range Interpretation Comme nts hemoglobin, blood (test code = 65) 10.4 g/dL 11.1-15.9 L [facility] Hospitalurine qudgrsc4122-08-47 15:14:00* Test Item Value Reference Range Interpretation Comme nts urine culture (test code = 39378) No growth [facility] HospitalNeisseria gonorrhoeae DNA [id number] 15:14:00* Test Item Value Reference Range Interpretation Comme nts Neisseria gonorrhoeae DNA pr obe (test code = 65985-9) Negative Negative [facility] Hospitalchlamydia DNA [id number] 15:14:00* Test Item Value Reference Range Interpretation Comme nts chlamydia DNA probe (test co de = 59837-7) Negative Negative [facility] HospitalVaginal Group B Strep by Real-Time [id number] 16:28:00 * Test Item Value Reference Range Interpretation Comme nts Vaginal Group B Strep by [place] l-Time PCR (test code = 683131) Negative Negative [facility] Hospitalurine apmrwsv3237-42-13 16:27:00* Test Item Value Reference Range Interpretation Comme nts urine culture (test code = 32290) MUG [facility] Hospitalprotein, urine, semiquantitative (dipstick)2019-10-07 16:27:00* Test Item Value Reference Range Interpretation Comme nts protein, urine, semiquantita tive (dipstick) (test code = 1753-3) 33.6 [facility] Hospitalcreatinine, random, [id number] 16:27:00* Test Item Value Reference Range Interpretation Comme nts creatinine, random, urine (t est code = 5167) 121.8 mg/dL [facility] Hospitalalanine aminotransferase (SGPT), [id number] 15:59:00 * Test Item Value Reference Range Interpretation Comme nts alanine aminotransferase (SG PT), serum (test code = 40) 13 1/L 0-24 [facility] Hospitalaspartate aminotransferase (SGOT), [id number] 15:59:00* Test Item Value Reference Range Interpretation Comme nts aspartate aminotransferase ( SGOT), serum (test code = 39) 16 1/L 0-40 [facility] HospitalHIV-CMIA (Chemiluminescent Microparticle Immuno Assay) 2019-10-07 15:59:00* Test Item Value Reference Range Interpretation Comme nts HIV-CMIA (Chemiluminescent Microparticle Immuno Assay) (test code = 774764) Non Reactive Non Reactive [facility] Hospitalrapid plasma reagin antibody, [id number] 15:59:00* Test Item Value Reference Range Interpretation Comme nts rapid plasma reagin antibody , serum (test code = 308) Non Reactive Non Reactive [facility] Hospitalimmature granulocytes, percentage of total cells, blood 2019-10-07 15:59:00* Test Item Value Reference Range Interpretation Comme nts immature granulocytes, perce ntage of total cells, blood (test code = 619441) 3 % [facility] Hospitalbasophil count, vlmpzwrd1178-79-68 15:59:00* Test Item Value Reference Range Interpretation Comme nts basophil count, absolute (te st code = 15446) 0.0 x10E3/uL 0.0-0.3 [facility] HospitalEosinophil Absolute Svbto6510-11-81 15:59:00* Test Item Value Reference Range Interpretation Comme nts Eosinophil Absolute Count (t est code = 592215) 0.1 X10E3/UL 0.0-0.4 [facility] Healthmonocyte count, blood, xcjejmnmd6268-38-16 15:59:00* Test Item Value Reference Range Interpretation Comme nts monocyte count, blood, autom ated (test code = 3076) 1.2 X10E3/UL 0.1-0.9 H [facility] Hospitallymphocyte count, blood, ucjgzhbvu0293-17-28 15:59:00* Test Item Value Reference Range Interpretation Comme nts lymphocyte count, blood, automated (test code = 3074) 1.6 X10E3/UL 0.7-3.1 [facility] HospitalAbsolute Lelrzteqqpc1338-12-41 15:59:00* Test Item Value Reference Range Interpretation Comme nts Absolute Neutrophils (test c ode = 57076) 9.4 X10E3/UL 1.4-7.0 H [facility] Hospitalbasophils as percent of blood jqzvkbpnvi0565-44-71 15:59:00* Test Item Value Reference Range Interpretation Comme nts basophils as percent of bloo d leukocytes (test code = 2426) 0 % [facility] Hospitaleosinophils as percent of blood uijxqzbjkl3097-93-36 15:59:00* Test Item Value Reference Range Interpretation Comme nts eosinophils as percent of bl ood leukocytes (test code = 4170) 1 % [facility] Healthmonocytes as percent of blood befhzjoevv0963-86-10 15:59:00* Test Item Value Reference Range Interpretation Comme nts monocytes as percent of bloo d leukocytes (test code = 2421) 10 % [facility] Hospitallymphocytes as percent of blood ltihuhoehm8567-76-09 15:59:00* Test Item Value Reference Range Interpretation Comme nts lymphocytes as percent of bl ood leukocytes (test code = 317) 13 % [facility] Hospitalneutrophils as percent of blood bnltpejlor3612-92-25 15:59:00* Test Item Value Reference Range Interpretation Comme nts neutrophils as percent of bl ood leukocytes (test code = 316) 73 % [facility] Hospitalplatelet wicyz4677-11-08 15:59:00* Test Item Value Reference Range Interpretation Comme [facility] platelet count (test code = 66) 417 X10E3/UL 150-450 [facility] Hospitalred blood cell distribution [id number] 15:59:00* Test Item Value Reference Range Interpretation Comme [facility] red blood cell distribution width (test code = 1030) 14.2 % 11.7-15.4 [facility] corpuscular hemoglobin concentration, [id number] 15:59:00* Test Item Value Reference Range Interpretation Comme [facility] mean corpuscular hemoglobin concentration, RBC (test code = 1029) 31.0 G/DL 31.5-35.7 L [facility] corpuscular hemoglobin, [id number] 15:59:00* Test Item Value Reference Range Interpretation Comme [facility] mean corpuscular hemoglobin, RBC (test code = 1031) 24.4 pg 26.6-33.0 L [facility] corpuscular volume, [id number] 15:59:00* Test Item Value Reference Range Interpretation Comme [facility] mean corpuscular volume, RBC (test code = 315) 79 fL 79-97 [facility] Hospitalhematocrit, [id number] 15:59:00* Test Item Value Reference Range Interpretation Comme [facility] hematocrit, blood (test code = 64) 34.8 % 34.0-46.6 [facility] Hospitalhemoglobin, [id number] 15:59:00* Test Item Value Reference Range Interpretation Comme [facility] hemoglobin, blood (test code = 65) 10.8 g/dL 11.1-15.9 L [facility] Hospitalerythrocyte (RBC) [id number] 15:59:00* Test Item Value Reference Range Interpretation Comme nts erythrocyte (RBC) count (ruslan t code = 67) 4.42 X10E6/UL 3.77-5.28 [facility] Hospitalleukocyte count, vwwcu9910-61-15 15:59:00* Test Item Value Reference Range Interpretation Comme nts leukocyte count, blood (test code = 68) 12.6 X10E3/UL 3.4-10.8 H [facility] HospitalHerpes Simplex Virus Jkscszj8573-84-59 14:07:37* Test Item Value Reference Range Interpretation Comme nts Herpes Simplex Virus Genital (test code = 4258) no [facility] HospitalPOCT URINALYSIS W/O SPECIFIC [id number] 23:11:00* Test Item Value Reference Range Interpretation [...] ve Lab Interpretation (test cod e = 34223-8) Normal [facility]<14 WEEKS US [id number] 17:45:03Addendum by Guerrero Whitaker MD on 04/16/2019 12:47 PMLimited USG for dating and viability:?Single live IUP measured 10 5/7 weeks.?Will date by this USG unless clinically indicated otherwise Casie Whitaker MD?04/16/2019?12:44 PM Limited USG for dating and viability:?Single live IUP 5/7 weeks.?Will date by this USG unless clinically indicated otherwise Guerrero Whitaker MD?04/16/2019?12:44 [facility]UnL[facility] CenterCBC WITH DIFFERENTIAL 2019-04-14 21:44:00* Test Item [...] 34.1 g/dL 32-36 RDW-SD (test code = 94188-9) 37.2 fL 38.5-49 L RDW-CV (test code = 788-0) 12.5 % 11.5-14 PLT (test code = 777-3) See_Comment H [Automated messa ge] The system which generated this result transmitted reference range: 135 - 361 10*3/?L. The reference range was not used to interpret this result as normal/abnormal. MPV (test code = 70991-1) 8.8 fL 9.4-13.3 L NRBC/100 WBC (test code = 9492982195) See_Comment [Automated [employer]] The system which generated this result transmitted reference range: 0.0 - 10.0 /100 WBCs. The reference range was not used to interpret this result as normal/abnormal. NRBC x10^3 (test code = 3783963241) <0.01 See_Comment [Automated messa ge] The system which generated this result transmitted reference range: 10*3/?L. The reference range was not used to interpret this result as normal/abnormal. GRAN MAT (NEUT) % (test code = 770-8) 71.3 % IMM GRAN % (test code = 7629942135) 0.40 % LYMPH % (test code = 736-9) 19.6 % MONO % (test code = 5905-5) 7.8 % EOS % (test code = 713-8) 0.5 % BASO % (test code = 706-2) 0.4 % GRAN MAT x10^3(ANC) (test code = 4795341305) 5.21 10*3/uL 1.5-10.3 IMM GRAN x10^3 (test code = 1422519113) 0.03 10*3/uL 0-0.06 LYMPH x10^3 (test code = 731-0) 1.43 10*3/uL 0.7-7.4 MONO x10^3 (test code = 742-7) 0.57 10*3/uL 0-0.5 H EOS x10^3 (test code = 711-2) 0.04 10*3/uL 0-0.4 BASO x10^3 (test code = 704-7) 0.03 10*3/uL 0-0.1 Lab Interpretation (test code = 95181-2) Abnormal [facility]<14 WEEKS US [id number] 23:55:04Limited USG for dating due to irregular periods:?transabdominal USG showed intrauterine gestationalsac with yolk sac and no pole Guerrero Whitaker MD?03/20/2019?6:54 PMUnLamb Healthcare CenterGALV ONLY - VAGINAL PATHOGENS BY DNA [id number] 17:42:00* Test Item Value Reference Range Interpretation Comme nts Trichomonas vaginalis (test code = 6040198554) Negative Negative Gardnerella vaginalis (test code = 1963794774) Negative Negative Susan species (test code = 0577431727) Negative Negative Lab Interpretation (test cod e = 77574-3) Normal [facility] CenterGC & CHLAMYDIA AMPLIFIED [id number] 17:25:00* Test Item Value Reference Range Interpretation Comme nts Lab Interpretation (test cod e = 69607-4) Normal [facility] CenterADC / [facility] - DRUG SCREEN [id number] 02:43:00* Test Item Value Reference Range Interpretation Comme nts BENZO U (test code = 8151304677) Negative Negative ELVIS U (test code = 2074134061) Negative Negative AMPHET (test code = 2535285736) Negative Negative THC (test code = 4409429310) Negative Negative METHADONE (test code = 8425426982) Negative Negative Meth U (test code = 4918313461) Negative Negative OPIATES (test code = 0069190149) Negative Negative Cocaine Metabolite (test code = 6277980170) Negative Negative PROPOXY (test code = 2821045289) Negative Negative Tric U (test code = 2315717912) Negative Negative PCP (test code = 3594582596) Negative Negative OXYCOD (test code = 1945478398) Negative Negative ARNULFO (test code = ARNULFO) [...] legal testing). Lab Interpretation (test code = 25430-0) Normal [facility] BETA HCG [id number] 17:07:00* Test Item Value Reference Range Interpretation Comme nts BETA HCG (test code = 8379019968) See_Comment [Automated [employer]] The system which generated this result transmitted reference range: Non- female and male patients: <5 mIU/mL. The reference range was not used to interpret this result as normal/abnormal. ARNULFO (test code = ARNULFO) Gestational Age?Range (mIU/mL)1-10?Weeks?4 5-14476259-37 Weeks?[id number] -22 Weeks?1780-60501931- 40 Weeks?6489-586317683Dyt tin has been reported to cause a negative bias, interpret results relative to patient's use of biotin. [facility] URINALYSIS W/O SPECIFIC [id number] 14:40:00* Test Item Value Reference Range Interpretation [...] = 3257) N/A Negative - Negati ve [facility] CenterPOCT [id number] 14:30:00* Test Item Value Reference Range Interpretation Comme nts POCT PREG (test code = 1605) Positive On board controls acceptable with C Line (test code = 3574) Yes POCT PREG LOT # (test code = 3575) POCT PREG TEST DATE ( test code = 3576) [facility] CenterLIPID [id number] 00:00:00* Test Item Value Reference Range Interpretation Comme nts CHOLESTEROL (test code = 2210) 151 MG/DL TRIGLYCERIDES (test code = 2232) 101 MG/DL HDL CHOLESTEROL (test code = 2220) 52 MG/DL CALC LDL CHOL (test code = 2237) 79 MG/DL RISK RATIO LDL/HDL (test cod e = 2238) 1.52 RATIO BASIC METABOLIC [id number] 00:00:00* Test Item Value Reference Range Interpretation Comme nts GLUCOSE (test code = 2217) 96 MG/DL BUN (test code = 2208) 9 MG/DL CREATININE (test code = 2214) 0.45 MG/DL eGFR AMER. (test code = 52528) (NOTE) ML/MIN/1.73 eGFR NON- AMER. (test code = 67896) NO CALC ML/MIN/1.73 SODIUM (test code = 2231) 142 MEQ/L POTASSIUM (test code = 2228) 4.1 MEQ/L CHLORIDE (test code = 2215) 103 MEQ/L CARBON DIOXIDE (test code = 2206) 26 MEQ/L CALCIUM (test code = 2209) 8.6 MG/DL LIPID [id number] 00:00:00* Test Item Value Reference Range Interpretation Comme nts CHOLESTEROL (test code = 2210) 151 MG/DL TRIGLYCERIDES (test code = 2232) 101 MG/DL HDL CHOLESTEROL (test code = 2220) 52 MG/DL CALC LDL CHOL (test code = 2237) 79 MG/DL RISK RATIO LDL/HDL (test cod e = 2238) 1.52 RATIO BASIC METABOLIC [id number] 00:00:00* Test Item Value Reference Range Interpretation Comme nts GLUCOSE (test code = 2217) 96 MG/DL BUN (test code = 2208) 9 MG/DL CREATININE (test code = 2214) 0.45 MG/DL eGFR AMER. (test code = 62393) (NOTE) ML/MIN/1.73 eGFR NON- AMER. (test code = 32555) NO CALC ML/MIN/1.73 SODIUM (test code = 2231) 142 MEQ/L POTASSIUM (test code = 2228) 4.1 MEQ/L CHLORIDE (test code = 2215) 103 MEQ/L CARBON DIOXIDE (test code = 2206) 26 MEQ/L CALCIUM (test code = 2209) 8.6 MG/DL LIPID [id number] 00:00:00* Test Item Value Reference Range Interpretation Comme nts CHOLESTEROL (test code = 2210) 151 MG/DL TRIGLYCERIDES (test code = 2232) 101 MG/DL HDL CHOLESTEROL (test code = 2220) 52 MG/DL CALC LDL CHOL (test code = 2237) 79 MG/DL RISK RATIO LDL/HDL (test cod e = 2238) 1.52 RATIO BASIC METABOLIC [id number] 00:00:00* Test Item Value Reference Range Interpretation Comme nts GLUCOSE (test code = 2217) 96 MG/DL BUN (test code = 2208) 9 MG/DL CREATININE (test code = 2214) 0.45 MG/DL eGFR AMER. (test code = 59408) (NOTE) ML/MIN/1.73 eGFR NON- AMER. (test code = 75156) NO CALC ML/MIN/1.73 SODIUM (test code = 2231) 142 MEQ/L POTASSIUM (test code = 2228) 4.1 MEQ/L CHLORIDE (test code = 2215) 103 MEQ/L CARBON DIOXIDE (test code = 2206) 26 MEQ/L CALCIUM (test code = 2209) 8.6 MG/DL LIPID [id number] 00:00:00* Test Item Value Reference Range Interpretation Comme nts CHOLESTEROL (test code = 2210) 151 MG/DL TRIGLYCERIDES (test code = 2232) 101 MG/DL HDL CHOLESTEROL (test code = 2220) 52 MG/DL CALC LDL CHOL (test code = 2237) 79 MG/DL RISK RATIO LDL/HDL (test cod e = 2238) 1.52 RATIO BASIC METABOLIC [id number] 00:00:00* Test Item Value Reference Range Interpretation Comme nts GLUCOSE (test code = 2217) 96 MG/DL BUN (test code = 2208) 9 MG/DL CREATININE (test code = 2214) 0.45 MG/DL eGFR AMER. (test code = 35616) (NOTE) ML/MIN/1.73 eGFR NON- AMER. (test code = 09750) NO CALC ML/MIN/1.73 SODIUM (test code = 2231) 142 MEQ/L POTASSIUM (test code = 2228) 4.1 MEQ/L CHLORIDE (test code = 2215) 103 MEQ/L CARBON DIOXIDE (test code = 2206) 26 MEQ/L CALCIUM (test code = 2209) 8.6 MG/DL LIPID [id number] 00:00:00* Test Item Value Reference Range Interpretation Comme nts CHOLESTEROL (test code = 2210) 151 MG/DL TRIGLYCERIDES (test code = 2232) 101 MG/DL HDL CHOLESTEROL (test code = 2220) 52 MG/DL CALC LDL CHOL (test code = 2237) 79 MG/DL RISK RATIO LDL/HDL (test cod e = 2238) 1.52 RATIO BASIC METABOLIC [id number] 00:00:00* Test Item Value Reference Range Interpretation Comme nts GLUCOSE (test code = 2217) 96 MG/DL BUN (test code = 2208) 9 MG/DL CREATININE (test code = 2214) 0.45 MG/DL eGFR AMER. (test code = 09602) (NOTE) ML/MIN/1.73 eGFR NON- AMER. (test code = 58060) NO CALC ML/MIN/1.73 SODIUM (test code = 2231) 142 MEQ/L POTASSIUM (test code = 2228) 4.1 MEQ/L CHLORIDE (test code = 2215) 103 MEQ/L CARBON DIOXIDE (test code = 2206) 26 MEQ/L CALCIUM (test code = 2209) 8.6 MG/DL LIPID [id number] 00:00:00* Test Item Value Reference Range Interpretation Comme nts CHOLESTEROL (test code = 2210) 151 MG/DL TRIGLYCERIDES (test code = 2232) 101 MG/DL HDL CHOLESTEROL (test code = 2220) 52 MG/DL CALC LDL CHOL (test code = 2237) 79 MG/DL RISK RATIO LDL/HDL (test cod e = 2238) 1.52 RATIO BASIC METABOLIC [id number] 00:00:00* Test Item Value Reference Range Interpretation Comme nts GLUCOSE (test code = 2217) 96 MG/DL BUN (test code = 2208) 9 MG/DL CREATININE (test code = 2214) 0.45 MG/DL eGFR AMER. (test code = 44237) (NOTE) ML/MIN/1.73 eGFR NON- AMER. (test code = 75395) NO CALC ML/MIN/1.73 SODIUM (test code = 2231) 142 MEQ/L POTASSIUM (test code = 2228) 4.1 MEQ/L CHLORIDE (test code = 2215) 103 MEQ/L CARBON DIOXIDE (test code = 2206) 26 MEQ/L CALCIUM (test code = 2209) 8.6 MG/DL LIPID [id number] 00:00:00* Test Item Value Reference Range Interpretation Comme nts CHOLESTEROL (test code = 2210) 151 MG/DL TRIGLYCERIDES (test code = 2232) 101 MG/DL HDL CHOLESTEROL (test code = 2220) 52 MG/DL CALC LDL CHOL (test code = 2237) 79 MG/DL RISK RATIO LDL/HDL (test cod e = 2238) 1.52 RATIO BASIC METABOLIC [id number] 00:00:00* Test Item Value Reference Range Interpretation Comme nts GLUCOSE (test code = 2217) 96 MG/DL BUN (test code = 2208) 9 MG/DL CREATININE (test code = 2214) 0.45 MG/DL eGFR AMER. (test code = 43985) (NOTE) ML/MIN/1.73 eGFR NON- AMER. (test code = 42440) NO CALC ML/MIN/1.73 SODIUM (test code = 2231) 142 MEQ/L POTASSIUM (test code = 2228) 4.1 MEQ/L CHLORIDE (test code = 2215) 103 MEQ/L CARBON DIOXIDE (test code = 2206) 26 MEQ/L CALCIUM (test code = 2209) 8.6 MG/DL LIPID [id number] 00:00:00* Test Item Value Reference Range Interpretation Comme nts CHOLESTEROL (test code = 2210) 151 MG/DL TRIGLYCERIDES (test code = 2232) 101 MG/DL HDL CHOLESTEROL (test code = 2220) 52 MG/DL CALC LDL CHOL (test code = 2237) 79 MG/DL RISK RATIO LDL/HDL (test cod e = 2238) 1.52 RATIO BASIC METABOLIC [id number] 00:00:00* Test Item Value Reference Range Interpretation Comme nts GLUCOSE (test code = 2217) 96 MG/DL BUN (test code = 2208) 9 MG/DL CREATININE (test code = 2214) 0.45 MG/DL eGFR AMER. (test code = 04949) (NOTE) ML/MIN/1.73 eGFR NON- AMER. (test code = 47675) NO CALC ML/MIN/1.73 SODIUM (test code = 2231) 142 MEQ/L POTASSIUM (test code = 2228) 4.1 MEQ/L CHLORIDE (test code = 2215) 103 MEQ/L CARBON DIOXIDE (test code = 2206) 26 MEQ/L CALCIUM (test code = 2209) 8.6 MG/DL Notes Date/Time Note Provider Source 2024-06-19 06:23:33 , 34w3d [facility] clinic pt arrived to the unit at 0415 with complaints of constant lower abdominal pain and leaking clear fluid since yesterday. Pt tested positive for chlamydia on Jun 01 and states she did received treatment. Udip had trace leukocytes. Clear fluid seen coming out of labia. Nitrazine negative. Speculum used to collect wet prep and fern test. Urine sent for GC/CT. Cervix closed/thick/floating. Category 1 strip with only two contractions seen with some irritability. Fern resulted negative and wet prep had few bacteria/clue cells and many wbc. Report called to Dr. Chen. U/S ordered to check LETITIA. Associated attestation - Mariela Chen MD - 06/19/2024 8:40 AM CDT RN note reviewed, agree with documentation See my H&P Mariela Chen MD [facility] 2024-06-19 04:07:09 CC: Pelvic pain and back pain began yesterday, and recently gotten worst. Pt is 34 weeks gestation[address] Pt sees Dr. Santos. Pt took Tylenol at 10PM yesterday. Awake, alert, oriented, resp reg unlabored, skin intact, color appropriate for race, moves all ext without difficulty, amb Report given to KATELYN Lucas Faina Flores RN [facility] 2024-06-04 00:56:26 CC: Midline abdominal pain and pelvic cramping at 32 weeks. Pain began yesterday. Pt is currently taking ABX for Climidia. Sees DR. Santos G2 L1 Awake, alert, oriented, resp reg unlabored, skin intact, color appropriate for race, moves all ext without difficulty, amb Report given to KATELYN Andrews Fania Flores RN [facility] 2024-06-03 13:21:23 Notified the patient of her positive STI results chlamydia. Notified the patient her medication has been sent to her pharmacy on file. Educated patient she should complete the entire course, advised patient to practice safe sex practices and to remain abstinent for at least 1-2 weeks post treatment. Patient desires to have partner treated. Name of partner: Jhony Singh :03/23/1996 [employer] Phone number:[phone] Offered std pamphlet for partner education. Patient declined std pamphlet to be mailed to partner. Advised patient on HIV testing if she has not recently been tested. Advised DENISE appointment in 3 months. Pt verbalized understanding. Jacquelyn Appiah RN 06/03/24 1:23 PM Jacquelyn Appiah RN [facility] 2024-06-03 12:06:48 Pt tested positive for chlamydia. Prescription for azithromycin routed to her pharmacy on file/ordered for clinic pickup/administration. Please notify patient of results. Her partner needs to be notified and should be encouraged to follow up with his PCP or may come to [facility] for treatment. If the partner is [...] (if will need DENISE in 3-4 weeks). [facility] 2024-06-02 08:23:42 Patient diagnosed with anemia in [...] understanding. Jacquelyn Appiah RN 06/02/24 8:24 AM Jacquelyn Appiah RN [facility] 2024-06-02 07:30:36 Please call patient and let her know she has anemia and I erx prescription to pharmacy. She is still medicaid pending so can take OTC if needed. [facility] 2024-02-07 23:38:17 PT ELOPE PRIOR TO DISPO. LAST SEEN IN STABLE CONDITION, AOx4, NO ATAXIA NOTED. PT DID NOT SIGN AMA PAPERS. PER REGISTRATION PT STATES "IM NOT WAITING HERE ALL NIGHT." PT THEN THROWS IDENTIFICATION BAND INTO TRASH AND ELOPES FROM DEPARTMENT. Catalina Ervin RN [facility] 2024-02-07 22:20:12 Pt arrives ambulatory to ED c/o tooth pain that began yesterday. She reports she can't eat or drink anything and since she is 15 weeks she is not able to take anything that helps the pain. T [facility]
--- NOTE | 2024-06-26 08:36 | ER ---
Nurse's Notes [facility] Name: Altagracia Yu Age: 19 yrs Sex: Female : 2005 Arrival Date: 06/26/2024 Time: 08:05 Bed 5 Private MD: Diagnosis: Acute serous otitis media, right ear Presentation: 06/26 08:22 Chief complaint: Right ear pain, headache, and N/D x 1 week. Coronavirus screen: At this time, the client does not indicate any symptoms associated with coronavirus-19. Ebola Screen: No symptoms or risks identified at this time. Initial Sepsis Screen: Does the patient meet any 2 criteria? No. Patient's initial sepsis screen is negative. Does the patient have a suspected source of infection? No. Patient's initial sepsis screen is negative. Risk Assessment: Do you want to hurt yourself or someone else? Patient reports no desire to harm self or others. Onset of symptoms was June 19, 2024. 08:22 Method Of Arrival: Ambulatory hb 08:22 Acuity: KARMEN 4 hb Historical: - Allergies: 08:25 Aspirin; hb 08:25 PENICILLINS; hb - PMHx: 08:25 adhd; Anxiety; Depression; Suicidal attempts; hb Screenin:30 [facility] ED Fall Risk Assessment (Adult) History of falling in the last 3 months, aa5 including since admission No falls in past 3 months (0 pts) Confusion or Disorientation No (0 pts) Intoxicated or Sedated No (0 pts) Impaired Gait No (0 pts) Mobility Assist Device Used No (0 pt) Altered Elimination No (0 pt) Score/Fall Risk Level 0 - 2 = Low Risk Oriented to surroundings, Maintained a safe environment, Educated pt \T\ family on fall prevention, incl call for assistance when getting out of bed. Abuse screen: Denies threats or abuse. Nutritional screening: No deficits noted. Tuberculosis screening: No symptoms or risk factors identified. Assessment: 08:30 General: Appears comfortable, Behavior is calm, cooperative. Pain: Complains of pain in aa5 right ear Pain currently is 7 out of 10 on a pain scale. Neuro: Level of Consciousness is awake, alert, obeys commands, Oriented to person, place, time, situation. Cardiovascular: Patient's skin is warm and dry. Respiratory: Airway is patent Respiratory effort is even, unlabored, Respiratory pattern is regular, symmetrical. GI: No signs and/or symptoms were reported involving the gastrointestinal system. : No signs and/or symptoms were reported regarding the genitourinary system. EENT: Reports pain in right ear. Derm: Skin is pink, warm \T\ dry. Musculoskeletal: Range of motion: intact in all extremities. Vital Signs: 08:22 BP 135 / 59; Pulse 103; Resp 16; Temp 98.4(O); Pulse Ox 100% on R/A; Weight 119.75 kg; hb Height 5 ft. 5 in. ; Pain 7; 08:22 Body Mass Index 43.93 (119.75 kg, 165.1 cm) hb 08:22 Pain Scale: Adult hb ED Course: 08:10 Patient arrived in ED. mg5 08:16 Terra Gonzales, RN is Primary Nurse. aa5 08:17 Neil Sagastume MD is Attending Physician. rt 08:22 Arm band placed on Patient placed in an exam room, on a stretcher. aa5 08:22 Patient has correct armband on for positive identification. Bed in low position. Call aa5 light in reach. 08:25 Triage completed. hb 08:40 No provider procedures requiring assistance completed. Patient did not have IV access aa5 during this emergency room visit. Administered Medications: No medications were administered Medication: 08:40 VIS not applicable for this client. aa5 Outcome: 08:36 Discharge ordered by . rt 08:40 Discharged to home ambulatory, with significant other, aa5 08:40 Condition: stable 08:40 Discharge instructions given to patient, Instructed on discharge instructions, follow up and referral plans. medication usage, Demonstrated understanding of instructions, follow-up care, medications, Prescriptions given X 1, 08:43 Patient left the ED. hb Signatures: Terra Gonzales, RN RN aa5 Yris Gómez RN RN Neil Sagastume MD MD rt Shabnam Kaufman mg5 Corrections: (The following items were deleted from the chart) 08:46 08:45 VIS not applicable for this client. aa5 aa5
--- NOTE | 2024-06-26 08:36 | EDPHYS ---
Physician Documentation [facility] Name: Altagracia Yu Age: 19 yrs Sex: Female : 2005 Arrival Date: 06/26/2024 Time: 08:05 Bed 5 Private MD: ED Physician Neil Sagastume HPI: 06/26 09:22 This 19 yrs old Female presents to ER via Ambulatory with complaints of Ear Pain. rt 09:22 Patient who is 36 weeks presents to the ED with right ear pain, mild nausea rt and diarrhea, no abdominal pain for about 1 week. Denies fever, chills. Denies other acute complaints at this time, symptoms are mild in severity, no other aggravating alleviating factors.. Historical: - Allergies: 08:25 Aspirin; hb 08:25 PENICILLINS; hb - PMHx: 08:25 adhd; Anxiety; Depression; Suicidal attempts; hb ROS: 09:42 Constitutional: Negative for fever, chills, and weight loss, Cardiovascular: Negative rt for chest pain, palpitations, and edema, Respiratory: Negative for shortness of breath, cough, wheezing, and pleuritic chest pain, MS/Extremity: Negative for injury and deformity, Skin: Negative for injury, rash, and discoloration, Neuro: Negative for headache, weakness, numbness, tingling, and seizure, 09:42 ENT: Positive for ear pain, Negative for sore throat, 09:42 Abdomen/GI: Positive for nausea, Negative for abdominal pain, Exam: 09:42 Constitutional: This is a well developed, well nourished patient who is awake, alert, rt and in no acute distress. Head/Face: Normocephalic, atraumatic. Chest/axilla: Normal chest wall appearance and motion. Nontender with no deformity. No lesions are appreciated. Cardiovascular: Regular rate and rhythm with a normal S1 and S2. No gallops, murmurs, or rubs. Normal PMI, no JVD. No pulse deficits. Respiratory: Lungs have equal breath sounds bilaterally, clear to auscultation and percussion. No rales, rhonchi or wheezes noted. No increased work of breathing, no retractions or nasal flaring. Abdomen/GI: Soft, non-tender, with normal bowel sounds. No distension or tympany. No guarding or rebound. No evidence of tenderness throughout. Skin: Warm, dry with normal turgor. Normal color with no rashes, no lesions, and no evidence of cellulitis. MS/ Extremity: Pulses equal, no cyanosis. Neurovascular intact. Full, normal range of motion. 09:42 Eyes: 09:42 ENT: Right TM is bulging, erythematous, left TM is clear, no posterior pharyngeal erythema. Vital Signs: 08:22 BP 135 / 59; Pulse 103; Resp 16; Temp 98.4(O); Pulse Ox 100% on R/A; Weight 119.75 kg; hb Height 5 ft. 5 in. ; Pain 710; 08:22 Body Mass Index 43.93 (119.75 kg, 165.1 cm) hb 08:22 Pain Scale: Adult hb MDM: 08:30 Medical Screening Exam initiated rt 09:42 Differential diagnosis: otitis media. Data reviewed: vital signs, nurses notes. rt Counseling: I had a detailed discussion with the patient and/or guardian regarding the historical points, exam findings, and any diagnostic results supporting the discharge/admit diagnosis, the need for outpatient follow up, to return to the emergency department if symptoms worsen or persist or if there are any questions or concerns that arise at home. Administered Medications: No medications were administered Disposition Summary: 06/26/24 08:36 Discharge Ordered Notes: Location: Home rt Problem: new rt Symptoms: are unchanged rt Condition: Stable rt Diagnosis - Acute serous otitis media, right ear rt Followup: rt - With: Private Physician - When: 2 - 3 days - Reason: Discharge Instructions: - Discharge Summary Sheet rt - Otitis Media, Adult rt Forms: - Work release form rt - Family Work Release rt - Medication Reconciliation Form rt - Antibiotic Education rt - Prescription Opioid Use rt - Patient Portal Instructions rt - Leadership Thank You Letter rt Prescriptions: - azithromycin 250 mg Oral tablet - take 1 dose pack ORAL route as directed on dose pack For 250 mg dose pack: take rt 500 mg today (day 1), then 250 mg for 4 days (days 2-5); 6 tablet; Refills: 0, Product Selection Permitted Signatures: Yris Gómez RN RN Neil Sagastume MD MD rt
[2024-06-26 08:50] VITALS: BP 135/59; TEMP 98.4; O2SAT 100
== END 2024-06-26 08:43 | disposition home or self-care (01) ==
LOC: ER 08:05
DX: O99.891 Other specified diseases and conditions complicating pregnancy (principal); H65.01 Acute serous otitis media, right ear; Z3A.36 36 weeks gestation of pregnancy
CPT/HCPCS: 99283

== ENCOUNTER 2024-08-25 18:37 | Emergency (ER) | payer OTHER ==
--- OUTSIDE RECORDS SUMMARY | 2024-08-25 18:43 | XMS REPORT | Continuity of Care Document ---
Author Name Unknown Address [address] [facility] [place] [address] [facility] thconnect Address [address] [facility] [address] [place] [address] Care Team Providers Care B2B Sales Professional Name Role Phone Dunia Mariela SPEARS Primary Care Physician LASHONDA SANTOS Attending Clinician UnavailSHAWN Luong Attending Clinician Unavailable SHAWN MACIEL Attending Clinician Unavailable Shawn Maciel MD Attending Clinician Logan Garcia MD Attending Clinician [phone] Franck Elise MD Attending Clinician ZEV CISSE Attending Clinician Unavailable Lashonda Santos CNM Attending Clinician [phone] KHANH VARGHESE Attending Clinician Unavail able Khanh Evans Attending Clinician + ANNA SANTANA Attending Clinician ANNA Wells Attending Clinician Anna Wells MD Attending Clinician + [phone] MARIELA CHEN Attending Clinician Unavailable MARIELA CHEN Attending Clinician Unavailable Yves Ventura MD Attending Clinician [phone] Mariela Chen MD Attending Clinician [phone] CAROLE HOUGH Attending Clinician Unavailable GUERRERO WHITAKER Attending Clinician Unavailable GUERRERO WHITAKER Attending Clinician Unavailable Guerrero Whitaker MD Attending Clinician [phone] Mamadou MICHAELS Attending Clinician Unavailable Mamadou Braswell Attending Clinician [phone] Doctor Unassigned, [place] Attending Clinician U navailable Arlene Valentino Attending Clinician UnavailHeaven Holm Attending Clinician [phone] Yenni Cervantes Attending Clinician Unavailable Hannah Sanchez Attending Clinician Yina Kimble Attending Clinician Unavailable Adali Mcpherson Attending Clinician [phone] Responsible Provider, Not Yet Assigned Attending Clinician Unavailable Yenni Gross Attending Clinician Unavailable Supply Manager, [facility] Attending Clinic louise Unavailable Shayy Rios Attending Clinician UnavailColette Mandujano Attending Clinician [phone] Tram Landaverde Attending Clinician Unavailable Polina Dobson Attending Clinician Unavailable EMMY BONILLA Attending Clinician Unavailable Emmy Bonilla PA-C Attending Clinician [phone] GUILLERMINA GILL Attending Clinician Unavailable 1, [facility] Attending Clinician Unavailable GUERRERO WHITAKER Admitting Clinician Unavailable SHAWN MACIEL Admitting Clinician Unavailable Shawn Maciel MD Admitting Clinician [phone] ANNA SANTANA Admitting Clinician Anna Wells MD Admitting Clinician + [phone] MARIELA CHEN Admitting Clinician Unavailable Mariela Chen MD Admitting Clinician [phone] Guerrero Whitaker MD Admitting Clinician [phone] [facility] [place] Unavailable [phone] Adali Mcpherson Unavailable [phone] Colette Chowdary Unavailable [phone] HeraclioYenni quinteros Unavailable Unavailable Payers Payer Name Policy Type Policy Number Effective Date Expirati on Date Source [facility] [id number] 2024 00:00:00 GREG Cintron/ BO WATERS [id number] 2024 00:00:00 [facility] [id number] 2018 00:00:00 Problems Condition Name Condition Details Condition Category Status Onset Date Resolution Date Last Treatment Date Treating Clinician Comments Source (spontaneo us vaginal delivery) (spontaneo us vaginal delivery) Disease Active 2023-08 00:00: 00 [facility] Single live Single live Disease Active 2023-08 00:00: 00 [facility] Obstetrica l laceration Obstetrica l laceration Disease Active 2023-08 00:00: 00 [facility] Anemia, Anemia, Disease Active 2023-08 00:00: 00 [facility] Shoulder dystocia during labor and delivery Shoulder dystocia during labor and delivery Disease Active 2023-08 00:00: 00 [facility] 39 weeks gestation of 39 weeks gestation of Disease Active 2023-08 00:00: 00 [facility] Positive GBS test Positive GBS test Disease Active 2023-08 00:00: 00 [facility] Back pain affecting in third trimester Back pain affecting in third trimester Disease Active 2023-08 00:00: 00 [facility] Morbid obesity with body mass index of 40.0-49.9 Morbid obesity with body mass index of 40.0-49.9 Disease Active 2024-1 1-02 00:00: 00 [facility] Chlamydia infection affecting Chlamydia infection affecting Disease Active 2023-08 0-17 00:00: 00 [facility] Anemia of mother in , antepartum Anemia of mother in , antepartum Disease Active 2023-08 0-16 00:00: 00 [facility] Poor historian Poor historian Disease Active 2023-08 0-16 00:00: 00 [facility] Flu vaccine refused Flu vaccine refused Disease Active 2023-08 0-16 00:00: 00 [facility] Rubella non-immune status, antepartum Rubella non-immune status, antepartum Disease Active 2023-08 0-16 00:00: 00 [facility] Maternal varicella, non-immune Maternal varicella, non-immune Disease Active 2023-08 0-16 00:00: 00 [facility] History of anxiety and depression History of anxiety and depression Disease Active 2023-08 0-15 00:00: 00 [facility] Obesity affecting in third trimester Obesity affecting in third trimester Disease Active 2023-08 0-15 00:00: 00 [facility] Late care Late care Disease Active 2023-08 0-15 00:00: 00 [facility] Current every day vaping Current every day vaping Disease Active 2023-08 0-15 00:00: 00 [facility] Greater Than or Equal to 95th Percentile For Age Condition Active 2- 00:00: 00 2019-10-15 09:09:50 [facility] [place] Anemia in , third trimester Condition Active 2-24 00:00: 00 2019-10-11 11:20:23 Adali Mcpherson [facility] Supervisio n of other high risk pregnancie s, third trimester Condition Active 2-20 00:00: 00 2019-10-07 17:42:03 Colette Chowdary [facility] Supervisio n of high risk due to social problems, third trimester Condition Active 2-20 00:00: 00 2019-10-07 17:42:03 Elsie Chowdaryie [facility] 28 weeks gestation of 28 weeks gestation of Disease Active 2018-08 00:00: 00 [facility] Bacterial vaginosis in Bacterial vaginosis in Disease Resolve d 2023-08 1- 00:00: 00 2024-07-20 00:00:00 2024-07-20 19:53:37 [facility] Cramping affecting , antepartum Cramping affecting , antepartum Disease Resolve d 2023-08 0-24 00:00: 00 2024-06-24 00:00:00 2024-06-24 07:22:04 [facility] No leakage of amniotic fluid into vagina No leakage of amniotic fluid into vagina Disease Resolve d 2023-08 1 00:00: 00 2024-06-23 00:00:00 2024-06-23 12:40:19 [facility] Round ligament pain Round ligament pain Disease Resolve d 09-17 00:00: 00 2024-06-01 00:00:00 2024-06-01 13:43:00 [facility] 32 weeks gestation of 32 weeks gestation of Disease Resolve d 2018-08 00:00: 00 2024-06-01 00:00:00 2024-06-01 13:43:02 [facility] Supervisio n of high risk in third trimester Supervisio n of high risk in third trimester Disease Resolve d 2018-08 00:00: 00 2024-06-01 00:00:00 2024-06-01 13:43:01 [facility] Uterine size-date discrepanc y in third trimester Uterine size-date discrepanc y in third trimester Disease Resolve d 2018-08 00:00: 00 2024-06-01 00:00:00 2024-06-01 13:42:59 [facility] Need for Tdap vaccinatio n Need for Tdap vaccinatio n Disease Resolve d 2018-08 00:00: 00 2024-06-01 00:00:00 2024-06-01 13:43:06 [facility] History of Past Illness Condition Name Condition Details Condition Category Status Onset Date Resolution Date Last Treatment Date Treating Clinician Comments Source 36 Weeks Gestation of Condition Inactiv e 2- 00:00: 00 2019-10-21 00:00:00 2019-10-15 09:09:50 Yenni Cervantes [facility] 35 Weeks Gestation of Condition Inactiv e 2-20 00:00: 00 2019-10-14 00:00:00 2019-10-07 17:42:03 Colette Chowdary [facility] Allergies, Adverse Reactions, Alerts Allergy Name Allergy Type Status Severity Reaction(s) Onset Date Inactive Date Treating Clinician Comments Source PENICILL IN DRUG INGREDI Active Hives 6- 00:00: 00 [facility] Penicill in Propensi ty to adverse reaction s Active Hives 6- 00:00: 00 [facility] Penicill ins - CLASS Propensi ty to adverse reaction to drug Active 7-19 00:00: 00 Penicill ins Propensi ty to adverse reaction to drug Active 3-21 00:00: 00 ASPIRIN DRUG INGREDI Active ITCHING 0 7-31 00:00: 00 [facility] Aspirin Propensi ty to adverse reaction s Active Swelling 0 7-31 00:00: 00 [facility] Social History Social Habit Start Date Stop Date Quantity Comments Source ASSERTION 2023-11-05 00:00:[address] [facility] History SDOH Alcohol Binge [facility] Tobacco use and exposure 2024-07-22 00:00:00 2024-07-22 00:00:00 Former smokeless tobacco user [facility] Alcoholic beverage intake 2024-07-22 00:00:00 2024-07-22 00:00:00 Lifetime non-drinker (finding) [facility] History of Social function 2024-06-01 00:00:00 2024-06-01 00:00:[address] [facility] Tobacco Comment 2024-06-01 00:00:00 2024-06-01 00:00:[address] [facility] Have you traveled to any zika virus infected areas? 2019-10-14 13:44:33 2019-10-14 13:44:33 No [facility]ly [facility], [facility] social history E&M 2019-10-07 14:07:37 2019-10-07 14:07:37 not currently with familyliving with fobarbara's familystates her own parents not involved with this . [facility] cat exposure during 2019-10-07 14:07:37 2019-10-07 14:07:37 no [facility] Alcohol intake 2019-09-17 00:00:00 2019-09-17 00:00:[address] [facility] History SDOH Alcohol Frequency 2019-03-17 00:00:00 2019-03-17 00:00:[address] [facility] History of tobacco use 2019-03-07 00:00:[address] [facility] Sex assigned at 2003 00:00:00 2005 00:00:[address] [facility] Smoking Status Start Date Stop Date Source Never smoked tobacco [facility] Medications Ordered Medication Name Filled Medication Name Start Date Stop Date Current Medication? Ordering Clinician Indication Dosage Frequency Signature (SIG) Comments Components Source acetaminoph en 325 mg tablet 2023-08 00:00: 00 07-25 05:59 :00 Yes [id number] 650mg Take 2 tablets by mouth every 8 (eight) hours. [facility] simethicone (GAS RELIEF (SIMETHICON E)) chewable tablet 160 mg 2023-08 15:00: 00 07-24 23:06 :47 No 160mg 160 mg, Oral, PC+HS, First dose on Fri07/23/24 at 0900, Until Discontinu ed, Routine [facility] acetaminoph en (TYLENOL) tablet 650 mg 2023-08 08:00: 00 Yes 650mg 650 mg, Oral, Q8H, First dose on Fri07/23/24 at 0200, Until Discontinu ed, Routine [facility] ibuprofen (IBU) tablet 600 mg 2023-08 08:00: 00 07-24 23:06 :47 No 600mg 600 mg, Oral, Q8HA1, First dose on Fri07/23/24 at 0200, Until Discontinu ed, Routine [facility] rho(D) immune globulin (RHOPHYLAC) injection 300 mcg 2023-08 07:50: 24 07-24 23:06 :47 No 300ug [facility] diphenhydrA MINE (BENADRYL) tablet 25 mg 2023-08 07:50: 20 07-24 23:06 :47 No 25mg [facility] ondansetron (ZOFRAN (PF)) injection 4 mg 2023-08 07:50: 20 07-24 23:06 :47 No 4mg [facility] docusate (COLACE) capsule 200 mg 2023-08 07:50: 20 07-24 23:06 :47 No 200mg 200 mg, Oral, QDAILYPRN, Starting on Fri07/23/24 at 0150, Until 07/24/24 at 1706, Routine, Constipati on [facility] magnesium hydroxide (MILK OF MAGNESIA) 400 mg/5 mL suspension 30 mL 2023-08 07:50: 20 07-24 23:06 :47 No 30mL 30 mL, Oral, QDAILYPRN, Starting on Fri07/23/24 at 0150, Until 07/24/24 at 1706, Routine, Constipati on [facility] benzocaine- menthol (DERMOPLAST ) 20-0.5 % topical spray 2023-08 07:50: 20 07-24 23:06 :47 No Topical, PRN, Starting on Fri07/23/24 at 0150, Until 07/24/24 at 1706, Routine, Perineum discomfort [facility] human papillomav vac,9-dillon(P F) (GARDASIL-9 ) syringe 0.5 mL 2023-08 07:50: 20 07-24 23:06 :47 No .5mL [facility] FENTanyl (PF) (SUBLIMAZE) injection 2023-08 03:40: 00 Yes Epidural, ONCE INTRA PROCEDURE, Starting on Tracey 07/22/24 at 2140, Until Discontinu ed, Routine, Intra-op [facility] [id number] fum-folic 27 mg iron- 1 mg folic tablet 2023-08 00:00: 00 Yes [id number] 1{tbl} Take 1 tablet by mouth in the morning. [facility] docusate 100 mg capsule 2023-08 00:00: 00 Yes [id number] 200mg Take 2 capsules by mouth once daily as needed for Constipati on. [facility] ferrous sulfate 325 mg (65 mg iron) tablet 2023-08 00:00: 00 Yes [id number] 325mg Take 1 tablet by mouth in the morning. [facility] ropivacaine 0.2 % (NAROPIN (PF)) epidural infusion 2023-08 16:33: 00 Yes Epidural, ONCE INTRA PROCEDURE, Starting on Tracey 07/22/24 at 1033, Until Discontinu ed, Routine, Intra-op [facility] lidocaine-e pinephrine (XYLOCAINE W/EPINEPHRI NE) 1.5 %-1:200,000 injection 2023-08 16:31: 00 Yes Epidural, ONCE INTRA PROCEDURE, Starting on Tracey 07/22/24 at 1031, Until Discontinu ed, Routine, Intra-op [facility] sodium citrate-cit geoff acid (BICITRA) 500-334 mg/5 mL solution 30 mL 2023-08 15:31: 11 07-22 16:05 :00 No 30mL 30 mL, Oral, PRE-PROCED URE ONCE, 1 dose, Starting on Tracey 07/22/24 at 0931, Until Tracey 07/22/24 at 1005, Routine, Surgery/Pr ocedure [facility] morpHINE injection 4 mg 2023-08 09:38: 00 07-22 10:03 :00 No 4mg 4 mg, Slow IV Push, ONCE, 1 dose, On Tracey 07/22/24 at 0345, Routine [facility] lactated ringers IV infusion 1,000 mL 2023-08 2-05 07:15: 00 07-23 07:50 :23 No 1000mL at 75 mL/hr, 1,000 mL, IV Infusion, CONTINUOUS , Starting on Tracey 07/22/24 at 0115, Until 07/23/24 at 0150, Routine [facility] alum-mag hydroxide-s imeth (MAG-AL PLUS) 200-200-20 mg/5 mL suspension 30 mL 2023-08 01:51: 00 07-05 02:04 :00 No 30mL 30 mL, Oral, ONCE, 1 dose, On 07/04/24 at 2000, Routine [facility] metroNIDAZO LE 500 mg tablet 2023-08 00:00: 00 07-23 00:00 :00 No [id number] 500mg Take 1 tablet by mouth every 12 (twelve) hours. [facility] proMETHazin e 25 mg tablet 2023-08 0- 00:00: 00 07-23 00:00 :00 No [id number] 25mg Take 1 tablet by mouth every 4 (four) hours as needed for Nausea and Vomiting (N/V). [facility] azithromyci n (ZITHROMAX) 500 mg tablet 2023-08- 00:00: 00 06-04 04:59 :00 Yes [id number] 01 1000mg Take 2 tablets by mouth once now for 1 dose. [facility] Iron Fum & P-FA-Vit B & C No.9 (INTEGRA PLUS) 125 mg iron- 1 mg Cap 2023-08 0-16 00:00: 00 07-23 00:00 :00 No [id number] 1{capsu le} Take 1 capsule by mouth in the morning. [facility] Dose Unknown 05-05 00:00: 00 No TAKE 1 TABLET BY MOUTH EVERY DAY 05-05 00:00: 00 No TAKE 1 TABLET BY MOUTH EVERY DAY 04-04 00:00: 00 No 10 TAKE 1 TABLET BY MOUTH EVERY DAY 2022-0 8-18 00:00: 00 No 10 Dose Unknown 2-0 8-12 00:00: 00 No 375 Dose Unknown 2-0 8-12 00:00: 00 No 375 Dose Unknown 2-0 8-12 00:00: 00 No 375 TAKE 1 [...] 00:00: 00 No 500 Dose Unknown 2021-0 8 00:00: 00 No 300 TAKE 1 [...] FOR PAIN 2021-0 8-06 00:00: 00 No Dose Unknown 2021-0 [...] EVERY 6 HOURS FOR 10 DAYS 2021-0 7-20 00:00: 00 No 300 citalopram 10 mg tablet 2021-0 7-20 00:00: 00 No 1mg Dose Unknown 2021-0 7-20 00:00: 00 No 375 &lt 2-0 7-20 00:00: 00 No 500 TAKE 1 CAPSULE BY MOUTH EVERY 6 HOURS FOR 10 DAYS 2021-0 7-20 00:00: 00 No 300 citalopram 10 mg tablet 2021-0 7-20 00:00: 00 No 1mg Dose Unknown 2021-0 20 00:00: 00 No 375 &lt 2021-0 7-20 00:00: 00 No 500 TAKE 1 CAPSULE BY MOUTH EVERY 6 HOURS FOR 10 DAYS 2021-0 7-20 00:00: 00 No 300 citalopram 10 mg tablet 2021-0 20 00:00: 00 No 1mg Dose Unknown 0 20 00:00: 00 No 375 &lt 2021-0 720 00:00: 00 No 500 TAKE 1 CAPSULE BY MOUTH EVERY 6 HOURS FOR 10 DAYS 2021-0 20 00:00: 00 No 300 citalopram 10 mg tablet 2021-0 7 00:00: 00 No 1mg citalopram 10 mg tablet 2021-0 719 00:00: 00 No 1mg citalopram 10 mg tablet 2021-0 7-19 00:00: 00 No 1mg citalopram 10 mg tablet 2021-0 19 00:00: 00 No 1mg TAKE 1 CAPSULE BY MOUTH EVERY DAY 2021-0 7-15 00:00: 00 No 375 &lt 2-0 7-15 00:00: 00 No TAKE 1 CAPSULE BY MOUTH EVERY 6 HOURS FOR 10 DAYS 2021-0 715 00:00: 00 No 300 TAKE 1 CAPSULE BY MOUTH EVERY DAY 2021-0 715 00:00: 00 No 375 &lt 2-0 7-15 00:00: 00 No TAKE 1 CAPSULE [...] 2022-0 3-14 00:00: 00 No Dose Unknown 0 3-14 00:00: 00 No cephalexin 500 mg tablet 0 2-23 00:00: 00 No 1mg cephalexin 500 mg tablet 0 2- 00:00: 00 No 1mg cephalexin 500 mg tablet 0 2 00:00: 00 No 1mg cephalexin 500 mg tablet 0 2- 00:00: 00 No 1mg cephalexin 500 mg tablet 0 10-10 00:00: 00 No 1mg doxycycline monohydrate [...] syringe 1-0 03-13 00:00: 00 No 1mg/mL Wellbutrin XL [...] No mg fluoxetine 20 mg tablet 2019-08 0 00:00: 00 No mg FERRALET 90 (FE CBN-FE GLUC-FA-B12 -C-DSS) 90-1 MG TABS 2-24 00:00: 00 Yes Adali Mcpherson Take 1 Tablet Once a Day [facility] VITAFOL ULTRA (PRENAT-FE POLY-METHFO L-FA-DHA) 29-0.6-0.4- 200 MG CAPS 10-07 00:00: 00 Yes Colette Manning 1{Capsu le} 1xD take 1 capsule by mouth daily [facility] BLOOD PRESSURE (BLOOD PRESSURE MONITORING) KIT 10-07 00:00: 00 Yes Colette Manning take twice daily [facility] PNV 67-iron ps-folate no.1-dha (VITAFOL ULTRA) 29 mg iron- 1 mg-200 mg Cap 03-20 00:00: 00 Yes [id number] Take 1 TAB-CAP/M2 by mouth daily. [facility] PNV 67-iron ps-folate no.1-dha (VITAFOL ULTRA) 29 mg iron- 1 mg-200 mg Cap 03-20 00:00: 00 07-23 00:00 :00 No [id number] Take 1 TAB-CAP/M2 by mouth daily. [facility] cetirizine 5 mg tablet 12-22 [...] (28) No known medications No Un adrian [facility] No known medications No Un adrian [facility] Immunizations Ordered Immunization Name Filled Immunization Name Date Status Comments Source TDAP 2024-06-01 00:00:[address] [facility] TDAP (ADACEL) VACCINE 2019-08-17 00:00:[address] [facility] TDAP (ADACEL) VACCINE 2019-08-17 00:00:[address] [facility] TDAP (ADACEL) VACCINE 2019-08-17 00:00:[address] [facility] TDAP (ADACEL) VACCINE 2019-08-17 00:00:[address] [facility] TDAP (ADACEL) VACCINE 2019-08-17 00:00:00 Completed Influenza Virus Vaccine Quad .5 mL IM 6+ MO 2019-06-14 00:00:[address] [facility] Influenza Virus Vaccine Quad .5 mL IM 6+ MO 2019-06-14 00:00:[address] [facility] Influenza Virus Vaccine Quad .5 mL IM 6+ MO 2019-06-14 00:00:[address] [facility] Influenza Virus Vaccine Quad .5 mL IM 6+ MO 2019-06-14 00:00:[address] [facility] Influenza Virus Vaccine Quad .5 mL IM 6+ MO (FLUZONE/FLULAVAL/F LUARIX) 2019-06-14 00:00:[address] [facility] HPV9 2018-12-11 00:00:00 Completed Hep A, ped/adol, [...] Unknown Completed [facility] TDAP (ADACEL) VACCINE Unknown Completed [facility] Vital Signs Vital Name Observation Time Observation Value Comments S ource Systolic blood pressure 2024-07-24 05:51:00 113 mm[Hg] [facility] Diastolic blood pressure 2024-07-24 05:51:00 60 mm[Hg] [facility] Heart rate 2024-07-24 05:51:00 64 /min [facility] Body temperature 2024-07-24 05:51:[address] [facility] Respiratory rate 2024-07-24 05:51:00 18 /min [facility] Oxygen saturation in Arterial blood by Pulse oximetry 2024-07-24 05:51:00 97 /min [facility] Body weight 2024-07-22 12:30:00 124.785 kg [facility] BMI 2024-07-22 12:30:00 45.78 kg/m2 [facility] Body height 2024-07-22 07:45:00 165.1 cm [facility] Systolic blood pressure 2024-07-20 21:17:00 127 mm[Hg] [facility] Diastolic blood pressure 2024-07-20 21:17:00 86 mm[Hg] [facility] Heart rate 2024-07-20 21:17:00 116 /min [facility] Body temperature 2024-07-20 21:17:[address] [facility] Respiratory rate 2024-07-20 21:17:00 18 /min [facility] Body height 2024-07-20 21:17:00 165.1 cm [facility] Body weight 2024-07-20 21:17:00 123.86 kg [facility] BMI 2024-07-20 21:17:00 45.44 kg/m2 [facility] Systolic blood pressure 2024-07-09 17:21:00 134 mm[Hg] [facility] Diastolic blood pressure 2024-07-09 17:21:00 88 mm[Hg] [facility] Heart rate 2024-07-09 17:21:00 103 /min [facility] Body temperature 2024-07-09 17:21:[address] [facility] Respiratory rate 2024-07-09 17:21:00 18 /min [facility] Body height 2024-07-09 17:21:00 165.1 cm [facility] Body weight 2024-07-09 17:21:00 121.224 kg [facility] BMI 2024-07-09 17:21:00 44.47 kg/m2 [facility] Systolic blood pressure 2024-07-05 03:39:00 112 mm[Hg] [facility] Diastolic blood pressure 2024-07-05 03:39:00 62 mm[Hg] [facility] Heart rate 2024-07-05 03:39:00 91 /min [facility] Oxygen saturation in Arterial blood by Pulse oximetry 2024-07-05 03:39:00 98 /min [facility] Body temperature 2024-07-05 01:19:[address] [facility] Respiratory rate 2024-07-05 01:19:00 18 /min [facility] Body height 2024-07-05 01:19:00 165.1 cm [facility] Body weight 2024-07-05 01:19:00 122.018 kg [facility] BMI 2024-07-05 01:19:00 44.76 kg/m2 [facility] Systolic blood pressure 2024-06-28 18:30:00 114 mm[Hg] [facility] Diastolic blood pressure 2024-06-28 18:30:00 58 mm[Hg] [facility] Heart rate 2024-06-28 18:30:00 85 /min [facility] Oxygen saturation in Arterial blood by Pulse oximetry 2024-06-28 18:30:00 98 /min [facility] Body temperature 2024-06-28 17:31:[address] [facility] Respiratory rate 2024-06-28 17:31:00 18 /min [facility] Body height 2024-06-28 17:10:00 165.1 cm [facility] Body weight 2024-06-28 17:10:00 120.203 kg [facility] BMI 2024-06-28 17:10:00 44.10 kg/m2 [facility] Systolic blood pressure 2024-06-23 18:22:00 109 mm[Hg] [facility] [facility] Di[facility] blood pressure 2024-06-23 18:22:00 60 mm[Hg] [facility] Heart rate 2024-06-23 18:22:00 101 /min [facility] Body temperature 2024-06-23 18:22:[address] [facility] Respiratory rate 2024-06-23 18:22:00 18 /min [facility] Body height 2024-06-23 18:22:00 165.1 cm [facility] Body weight 2024-06-23 18:22:00 119.75 kg [facility] BMI 2024-06-23 18:22:00 43.93 kg/m2 [facility] Systolic blood pressure 2024-06-19 12:30:00 84 mm[Hg] [facility] Diastolic blood pressure 2024-06-19 12:30:00 57 mm[Hg] [facility] Heart rate 2024-06-19 12:30:00 72 /min [facility] Oxygen saturation in Arterial blood by Pulse oximetry 2024-06-19 12:30:00 98 /min [facility] Body temperature 2024-06-19 09:24:[address] [facility] Respiratory rate 2024-06-19 09:24:00 18 /min [facility] Body height 2024-06-19 09:24:00 165.1 cm [facility] Body weight 2024-06-19 09:24:00 118.661 kg [facility] BMI 2024-06-19 09:24:00 43.53 kg/m2 [facility] Systolic blood pressure 2024-06-09 17:33:00 94 mm[Hg] [facility] Diastolic blood pressure 2024-06-09 17:33:00 76 mm[Hg] [facility] Heart rate 2024-06-09 17:26:00 84 /min [facility] Body temperature 2024-06-09 17:26:[address] [facility] Respiratory rate 2024-06-09 17:26:00 18 /min [facility] Body height 2024-06-09 17:26:00 165.1 cm [facility] Body weight 2024-06-09 17:26:00 117.283 kg [facility] BMI 2024-06-09 17:26:00 43.03 kg/m2 [facility] Systolic blood pressure 2024-06-04 09:30:00 118 mm[Hg] [facility] Diastolic blood pressure 2024-06-04 09:30:00 72 mm[Hg] [facility] Heart rate 2024-06-04 09:30:00 87 /min [facility] Oxygen saturation in Arterial blood by Pulse oximetry 2024-06-04 09:30:00 96 /min [facility] Respiratory rate 2024-06-04 09:00:00 19 /min [facility] Body temperature 2024-06-04 06:22:[address] [facility] Body height 2024-06-04 06:00:00 165.1 cm [facility] Body weight 2024-06-04 06:00:00 117.028 kg [facility] BMI 2024-06-04 06:00:00 42.93 kg/m2 [facility] Systolic blood pressure 2024-06-01 18:05:00 115 mm[Hg] [facility] Diastolic blood pressure 2024-06-01 18:05:00 73 mm[Hg] [facility] Heart rate 2024-06-01 18:05:00 98 /min [facility] Body temperature 2024-06-01 18:05:[address] [facility] Respiratory rate 2024-06-01 18:05:00 18 /min [facility] Body height 2024-06-01 18:05:00 165.1 cm [facility] Body weight 2024-06-01 18:05:00 117.845 kg [facility] BMI 2024-06-01 18:05:00 43.23 kg/m2 [facility] Systolic blood pressure 2024-02-08 03:23:00 143 mm[Hg] [facility] Diastolic blood pressure 2024-02-08 03:23:00 82 mm[Hg] [facility] Heart rate 2024-02-08 03:23:00 93 /min [facility] Body temperature 2024-02-08 03:23:[address] [facility] Respiratory rate 2024-02-08 03:23:00 21 /min [facility] Body height 2024-02-08 03:23:00 165.1 cm [facility] Body weight 2024-02-08 03:23:00 106.641 kg [facility] BMI 2024-02-08 03:23:00 39.12 kg/m2 [facility] Oxygen saturation in Arterial blood by Pulse oximetry 2024-02-08 03:23:00 100 /min [facility] Systolic blood pressure 2019-08-31 23:06:00 93 mm[Hg] [facility] Diastolic blood pressure 2019-08-31 23:06:00 64 mm[Hg] [facility] Heart rate 2019-08-31 23:06:00 90 /min [facility] Body temperature 2019-08-31 23:06:[address] [facility] Respiratory rate 2019-08-31 23:06:00 18 /min [facility] Body height 2019-08-31 23:06:00 160 cm [facility] Body weight 2019-08-31 23:06:00 101.606 kg [facility] BMI 2019-08-31 23:06:00 39.68 kg/m2 [facility] Systolic blood pressure 2019-04-14 19:00:00 117 mm[Hg] [facility] Diastolic blood pressure 2019-04-14 19:00:00 70 mm[Hg] [facility] Heart rate 2019-04-14 19:00:00 79 /min [facility] Body temperature 2019-04-14 19:00:[address] [facility] Respiratory rate 2019-04-14 19:00:00 18 /min [facility] Body height 2019-04-14 19:00:00 160 cm [facility] Body weight 2019-04-14 19:00:00 87.544 kg [facility] BMI 2019-04-14 19:00:00 34.19 kg/m2 [facility] Systolic blood pressure 2019-03-17 14:24:00 112 mm[Hg] [facility] Diastolic blood pressure 2019-03-17 14:24:00 70 mm[Hg] [facility] Heart rate 2019-03-17 14:24:00 77 /min [facility] Body temperature 2019-03-17 14:24:[address] [facility] Respiratory rate 2019-03-17 14:24:00 18 /min [facility] Body height 2019-03-17 14:24:00 160 cm [facility] Body weight 2019-03-17 14:24:00 90.266 kg [facility] BMI 2019-03-17 14:24:00 35.25 kg/m2 [facility] BP Systolic 2022-05-07 17:13:00 117 mm[Hg] [...] /min Respiratory Rate 2021-10-10 10:56:00 16.00 /min Respiratory Rate 2021-10-04 11:52:00 BP Systolic 2021-10-04 11:52:00 123 mm[Hg] BP Diastolic 2021-10-04 11:52:00 77 mm[Hg] Weight Measured 2021-10-04 11:52:00 260.00 pounds Height Measured 2021-10-04 11:52:00 62.01 inches Body Temperature 2021-10-04 11:52:00 98.90 degrees Heart Rate 2021-10-04 11:52:00 87.00 /min BP Systolic 2021-07-05 14:51:00 111 mm[Hg] BP [...] blood pressure, diastolic 2019-10-14 13:44:33 84 mm[Hg] [facility] blood pressure, systolic 2019-10-14 13:44:33 125 mm[Hg] [facility] pulse rate E&M 2019-10-14 13:44:33 87 /min L [facility] oxygen saturation, oximetry 2019-10-14 13:44:33 97 % [facility] respiratory rate E&M 2019-10-14 13:44:33 20 /min [facility] temperature site 2019-10-14 13:44:33 oral [facility] temperature E&M 2019-10-14 13:44:33 98.3 [degF] [facility] weight E&M 2019-10-14 13:44:33 238.8 [lb_av] [facility] height E&M 2019-10-14 13:44:33 63 [in_i] [facility] oxygen saturation, oximetry 2019-10-07 14:07:37 98 % [facility] blood pressure, diastolic 2019-10-07 14:07:37 83 mm[Hg] [facility] blood pressure, systolic 2019-10-07 14:07:37 130 mm[Hg] [facility] pulse rate E&M 2019-10-07 14:07:37 91 /min [facility] temperature E&M 2019-10-07 14:07:37 98.6 [degF] [facility] temperature site 2019-10-07 14:07:37 oral [facility] height E&M 2019-10-07 14:07:37 63 [in_i] [facility] weight E&M 2019-10-07 14:07:37 235 [lb_av] [facility] Procedures Procedure Date / Time Performed Performing Clinician Source CBC WITH DIFF 2024-07-23 12:09:00 Keith Hwang [facility] VENOUS CORD GAS 2024-07-23 03:58:00 [facility] CENTRAL NEURAXIAL BLOCK 2024-07-22 16:04:[address] [facility] CBC WITH DIFF 2024-07-22 05:38:00 Hien Flores [facility] HEPATITIS B SURFACE ANTIGEN 2024-07-22 05:38:[address] [facility] HB ABO GROUPING 2024-07-22 05:38:00 [facility] RHO (D) IMMUNE GLOBULIN 2024-07-22 05:38:[address] [facility] HIV 1/2 AG-AB WITH REFLEX 2024-07-22 05:38:[address] [facility] SYPHILIS IGG/IGM 2024-07-22 05:38:00 Hien Flores [facility] POCT URINALYSIS 2024-07-20 21:18:[address] [facility] GROUP B STREP SCREEN CULTURE 2024-07-09 17:45:[address] [facility] GROUP B STREPTOCOCCUS BY PCR 2024-07-09 17:45:[address] [facility] POCT URINALYSIS 2024-07-09 17:21:[address] [facility] URINALYSIS 2024-06-28 17:49:[address] [facility] ADC CLC OR LCC ONLY - WET PREP 2024-06-28 17:49:00 Max Anna [facility] POCT URINALYSIS 2024-06-23 18:24:[address] [facility] ADC ONLY - FERN TEST 2024-06-19 13:13:00 Adum, Mariela Mcmahon [facility] US PELVIS > 14 WEEKS 2024-06-19 12:47:02 Adum, Mariela Mcmahon [facility] ADC ONLY - FERN TEST 2024-06-19 09:45:00 Adum, Mariela Mcmahon [facility] POCT URINALYSIS 2024-06-09 17:25:[address] [facility] URINALYSIS 2024-06-04 06:44:00 Guerrero Whitaker [facility] ADC CLC OR LCC ONLY - WET PREP 2024-06-04 06:44:[address] [facility] GLUCOSE 1 HOUR POST PRANDIAL 2024-06-01 19:14:[address] [facility] CBC WITH DIFF 2024-06-01 19:14:[address] [facility] HEPATITIS B SURFACE ANTIGEN 2024-06-01 19:14:[address] [facility] HCV ANTIBODY 2024-06-01 19:14:00 Lashonda Santos [facility] HB INDIRECT ANTIGLOBULIN TEST 2024-06-01 19:14:[address] [facility] HIV 1/2 AG-AB WITH REFLEX 2024-06-01 19:14:[address] [facility] RUBELLA SCREEN IGG 2024-06-01 19:14:[address] [facility] VZV ANTIBODY SCREEN 2024-06-01 19:14:[address] [facility] URINE CULTURE 2024-06-01 19:14:[address] [facility] GC & CHLAMYDIA AMPLIFIED ASSAY 2024-06-01 19:14:[address] [facility] LAB ONLY PAP SMEAR-LIQUID BASED 2024-06-01 19:14:[address] [facility] TRICHOMONAS AMPLIFIED ASSAY 2024-06-01 19:14:[address] [facility] PAP SMEAR-LIQUID BASED-CP 2024-06-01 19:14:[address] [facility] SYPHILIS IGG/IGM 2024-06-01 19:14:[address] [facility] TDAP VACCINE, >11 YRS, IM 2024-06-01 18:45:[address] [facility] POCT TEST 2024-06-01 00:00:[address] [facility] POCT URINALYSIS W/O SPECIFIC GRAVITY 2024-06-01 00:00:[address] [facility] CONSENT/REFUSAL FOR DIAGNOSIS AND TREATMENT 2019-10-25 05:01:00 Doctor Unassigned, [place] [facility] Nutrition Counseling (Obese) 2019-10-14 14:28:44 Heaven Morrow [facility] Case Mgmt Visit, Non-Billable [id number] 2019-10-07 15:54:24 Yenni Gross [facility] Vaccines Ordered - Print Consent/Declination Forms 2019-10-07 15:46:26 Colette Chowdary [facility] POCT URINALYSIS W/O SPECIFIC GRAVITY 2019-08-31 00:00:[address] [facility] <14 WEEKS US LIMITED 2019-04-16 17:44:[address] [facility] CBC WITH DIFFERENTIAL 2019-04-14 21:36:[address] [facility] ASSIGNMENT OF BENEFITS 2019-04-14 20:00:31 Docto r Unassigned, [place] [facility] <14 WEEKS US LIMITED 2019-03-20 23:54:[address] [facility] TOTAL BETA HCG ASSAY 2019-03-17 15:19:[address] [facility] GC & CHLAMYDIA AMPLIFIED ASSAY 2019-03-17 14:53:[address] [facility] GALV ONLY - VAGINAL PATHOGENS BY DNA PROBE 2019-03-17 14:53:00 Guerrero Whitaker [facility] ADC / LCC - DRUG SCREEN TRIAGE 2019-03-17 14:53:[address] [facility] POCT TEST 2019-03-17 00:00:[address] [facility] POCT URINALYSIS W/O SPECIFIC GRAVITY 2019-03-17 00:00:[address] [facility] Plan of Care Planned Activity Planned Date Details Comments Source Goal Plan of Care Note [code = 08176-5] Goal Plan of Care Note [code = 80296-2] Goal Plan of Care Note [code = 09858-9] Goal Plan of Care Note [code = 12317-9] Goal Plan of Care Note [code = 77452-8] Goal Plan of Care Note [code = 05220-3] Goal Plan of Care Note [code = 13231-4] Goal Plan of Care Note [code = 02844-1] Goal Plan of Care Note [code = 61220-9] Goal Plan of Care Note [code = 96397-5] Goal Plan of Care Note [code = 40631-2] Goal Plan of Care Note [code = 63219-1] Goal Plan of Care Note [code = 20503-9] Goal Plan of Care Note [code = 69532-3] Goal Plan of Care Note [code = 92142-4] Goal Plan of Care Note [code = 21413-4] Goal Plan of Care Note [code = 77062-3] Goal Plan of Care Note [code = 47091-6] Goal Plan of Care Note [code = 75077-2] Goal Plan of Care Note [code = 92732-0] Goal Plan of Care Note [code = 59273-7] Goal Plan of Care Note [code = 55817-4] Goal Plan of Care Note [code = 80187-0] Goal Plan of Care Note [code = 55234-0] Goal Plan of Care Note [code = 29837-8] Goal Plan of Care Note [code = 03817-7] Goal Plan of Care Note [code = 44043-1] Goal Plan of Care Note [code = 23470-0] Goal Plan of Care Note [code = 63593-7] Goal Plan of Care Note [code = 15295-3] Goal Plan of Care Note [code = 84372-5] Goal Plan of Care Note [code = 44953-7] Goal Plan of Care Note [code = 42502-2] Goal Plan of Care Note [code = 55151-3] Goal Plan of Care Note [code = 91670-3] Goal Plan of Care Note [code = 30693-2] Goal Plan of Care Note [code = 73825-3] Goal Plan of Care Note [code = 33948-9] Goal Plan of Care Note [code = 64868-2] Goal Plan of Care Note [code = 87597-2] Goal Plan of Care Note [code = 29996-6] Goal Plan of Care Note [code = 49123-4] Goal Plan of Care Note [code = 49973-5] Goal Plan of Care Note [code = 80440-0] Goal Plan of Care Note [code = 90556-6] Goal Plan of Care Note [code = 87906-7] Goal Plan of Care Note [code = 07897-2] Goal Plan of Care Note [code = 10742-7] Goal Plan of Care Note [code = 58615-7] Goal Plan of Care Note [code = 64818-8] Goal Plan of Care Note [code = 80813-1] Goal Plan of Care Note [code = 22422-8] Goal Plan of Care Note [code = 39184-8] Goal Plan of Care Note [code = 51243-9] Goal Plan of Care Note [code = 69589-7] Goal Plan of Care Note [code = 25105-8] Goal Plan of Care Note [code = 24951-8] Goal Plan of Care Note [code = 07739-5] Goal Plan of Care Note [code = 93055-2] Goal Plan of Care Note [code = 59147-2] Goal Plan of Care Note [code = 53563-5] Goal Plan of Care Note [code = 29179-5] Goal Plan of Care Note [code = 27316-4] Goal Plan of Care Note [code = 75460-7] Goal Plan of Care Note [code = 82080-0] Goal Plan of Care Note [code = 10930-8] Goal Plan of Care Note [code = 88895-3] Goal Plan of Care Note [code = 65227-2] Goal Plan of Care Note [code = 35718-3] Goal Plan of Care Note [code = 55579-1] Goal Plan of Care Note [code = 38323-8] Goal Plan of Care Note [code = 14412-9] Goal Plan of Care Note [code = 92035-9] Goal Plan of Care Note [code = 67489-7] Goal Plan of Care Note [code = 30399-3] Goal Plan of Care Note [code = 34582-3] Goal Plan of Care Note [code = 99579-3] Goal Plan of Care Note [code = 50218-4] Goal Plan of Care Note [code = 70741-7] Goal Plan of Care Note [code = 50377-8] Goal Plan of Care Note [code = 58996-1] Goal Plan of Care Note [code = 98934-4] Goal Plan of Care Note [code = 07050-9] Goal Plan of Care Note [code = 48565-8] Goal Plan of Care Note [code = 97622-2] Goal Plan of Care Note [code = 60867-5] Goal Plan of Care Note [code = 35585-3] Goal Plan of Care Note [code = 69795-1] Goal Plan of Care Note [code = 99954-8] Goal Plan of Care Note [code = 00975-6] Goal Plan of Care Note [code = 07447-1] Goal Plan of Care Note [code = 00432-9] Goal Plan of Care Note [code = 40281-7] Goal Plan of Care Note [code = 26997-6] Goal Plan of Care Note [code = 09053-9] Goal Plan of Care Note [code = 12561-3] Goal Plan of Care Note [code = 09588-5] Goal Plan of Care Note [code = 77039-7] Goal Plan of Care Note [code = 43540-4] Goal Plan of Care Note [code = 46529-6] Goal Plan of Care Note [code = 01169-9] Goal Plan of Care Note [code = 54911-5] Goal Plan of Care Note [code = 82961-3] Goal Plan of Care Note [code = 05794-3] Goal Plan of Care Note [code = 91118-4] Goal Plan of Care Note [code = 19237-7] Goal Plan of Care Note [code = 08202-6] Goal Plan of Care Note [code = 41562-9] Goal Plan of Care Note [code = 37405-7] Goal Plan of Care Note [code = 67536-0] Goal Plan of Care Note [code = 26394-5] Goal Plan of Care Note [code = 09252-7] Goal Plan of Care Note [code = 05372-7] Goal Plan of Care Note [code = 86069-6] Goal Plan of Care Note [code = 78748-7] Goal Plan of Care Note [code = 14105-1] Goal Plan of Care Note [code = 46541-6] Goal Plan of Care Note [code = 49622-2] Goal Plan of Care Note [code = 20084-4] Goal Plan of Care Note [code = 57953-5] Goal Plan of Care Note [code = 02626-6] Goal Plan of Care Note [code = 88762-3] Goal Plan of Care Note [code = 71734-3] Goal Plan of Care Note [code = 94777-1] Goal Plan of Care Note [code = 55449-4] Goal Plan of Care Note [code = 45799-2] Goal Plan of Care Note [code = 51197-1] Goal Plan of Care Note [code = 27908-6] Goal Plan of Care Note [code = 17186-9] Goal Plan of Care Note [code = 65459-6] Goal Plan of Care Note [code = 13446-0] Goal Plan of Care Note [code = 19061-8] Goal Plan of Care Note [code = 08504-0] Goal Plan of Care Note [code = 23599-7] Goal Plan of Care Note [code = 53352-6] Goal Plan of Care Note [code = 94484-7] Goal Plan of Care Note [code = 31575-8] Goal Plan of Care Note [code = 96105-6] Goal Plan of Care Note [code = 44708-4] Goal Plan of Care Note [code = 02090-8] Goal Plan of Care Note [code = 56397-8] Goal Plan of Care Note [code = 68399-2] Goal Plan of Care Note [code = 38137-2] Goal Plan of Care Note [code = 42560-8] Goal Plan of Care Note [code = 38159-0] Goal Plan of Care Note [code = 47231-4] Goal Plan of Care Note [code = 71910-5] Goal Plan of Care Note [code = 09859-0] Goal Plan of Care Note [code = 74435-2] Goal Plan of Care Note [code = 45852-2] Goal Plan of Care Note [code = 97027-0] Goal Plan of Care Note [code = 98246-7] Goal Plan of Care Note [code = 34273-1] Goal Plan of Care Note [code = 35328-5] Goal Plan of Care Note [code = 70945-4] Goal Plan of Care Note [code = 49443-2] Goal Plan of Care Note [code = 76298-3] Goal Plan of Care Note [code = 77824-2] Goal Plan of Care Note [code = 71210-1] Goal Plan of Care Note [code = 92873-3] Goal Plan of Care Note [code = 47507-9] Goal Plan of Care Note [code = 28207-1] Goal Plan of Care Note [code = 59053-5] Goal Plan of Care Note [code = 97409-2] Goal Plan of Care Note [code = 95572-8] Goal Plan of Care Note [code = 10354-5] Goal Plan of Care Note [code = 80371-1] Goal Plan of Care Note [code = 84209-8] Goal Plan of Care Note [code = 10246-1] Goal Plan of Care Note [code = 56631-9] Goal Plan of Care Note [code = 96670-3] Goal Plan of Care Note [code = 56242-6] Goal Plan of Care Note [code = 28247-2] Goal Plan of Care Note [code = 12965-0] Goal Plan of Care Note [code = 94983-0] Goal Plan of Care Note [code = 98070-6] Goal Plan of Care Note [code = 64320-4] Goal Plan of Care Note [code = 28448-4] Goal Plan of Care Note [code = 40553-7] Goal Plan of Care Note [code = 65771-8] Goal Plan of Care Note [code = 59160-1] Goal Plan of Care Note [code = 40280-5] Goal Plan of Care Note [code = 66182-3] Goal Plan of Care Note [code = 94393-5] Goal Plan of Care Note [code = 80480-3] Goal Plan of Care Note [code = 78331-4] Goal Plan of Care Note [code = 11064-1] Goal Plan of Care Note [code = 58553-4] Goal Plan of Care Note [code = 65677-9] Goal Plan of Care Note [code = 88732-6] Goal Plan of Care Note [code = 40479-6] Goal Plan of Care Note [code = 38312-1] Goal Plan of Care Note [code = 97882-3] Goal Plan of Care Note [code = 76538-4] Goal Plan of Care Note [code = 90344-2] Goal Plan of Care Note [code = 21776-7] Goal Plan of Care Note [code = 21601-6] Goal Plan of Care Note [code = 58843-3] Goal Plan of Care Note [code = 65935-7] Goal Plan of Care Note [code = 19106-5] Goal Plan of Care Note [code = 86543-7] Goal Plan of Care Note [code = 18644-2] Goal Plan of Care Note [code = 18537-6] Goal Plan of Care Note [code = 10937-8] Goal Plan of Care Note [code = 76193-9] Goal Plan of Care Note [code = 42958-3] Goal Plan of Care Note [code = 36123-1] Goal Plan of Care Note [code = 93572-5] Goal Plan of Care Note [code = 22077-9] Encounters Start Date/Time End Date/Time Encounter Type Admission Type Attending Clinicians Care Facility Care Department Encounter ID Source 2024-06-04 04:57:59 Outpatient X [facility] [id number] [facility] 2024-07-21 19:49:00 2024-07-24 17:06:00 Inpatient X SHAWN MACIEL SOURABH [facility] [id number] [facility] 2024-07-21 19:49:00 2024-07-24 17:06:00 Hospital Encounter Shawn Maciel [facility] ([facility] [id number] [id number] [id number] [id number] [facility] 2024-07-22 09:49:00 2024-07-22 09:49:00 Anesthesia Event Logan Garcia Rakesh Raj [facility] ([facility] 1.2.840.114 350.1.13.10 4.2.7.2.686 [id number] [facility] 2024-07-20 00:00:00 2024-07-20 15:59:24 Letter (Out) Lashonda Santos [facility] YIELD ANALYST [facility] 1.2.840.114 350.1.13.10 4.2.7.2.686 [id number] [facility] 2024-07-20 15:45:00 2024-07-20 15:57:56 Outpatient R LASHONDA SANTOS [facility] [id number] [facility] 2024-07-20 15:45:00 2024-07-20 15:57:56 Routine Visit Lashonda Santos [facility] YIELD [facility] [facility] 1.2.840.114 350.1.13.10 4.2.7.2.686 [id number] [facility] 2024-07-14 00:00:00 2024-07-14 13:40:12 Telephone Lashonda Santos [facility] YIELD ANALYST [facility]ILD [facility] 1.2.840.114 350.1.13.10 4.2.7.2.686 [id number] [facility] 2024-07-13 15:45:00 2024-07-13 15:45:00 Outpatient R KHANH VARGHESE [facility] [id number] [facility] 2024-07-09 16:15:00 2024-07-09 16:15:00 Outpatient R AKINKHANH THORPE [facility] [id number] [facility] 2024-07-09 11:00:00 2024-07-09 11:47:48 Outpatient R KHANH VARGHESE [facility] [id number] [facility] 2024-07-09 11:00:00 2024-07-09 11:47:48 Routine Visit Khanh Varghese [facility] YIELD ANALYST [facility] 1.0.114 350.1.13.10 4.2.7.2.686 [id number] [facility] 2024-07-04 18:42:00 2024-07-04 21:50:00 Outpatient X CARROLL-HUBERT S, ANNA CARROLL-HUBERT S, ANNA [facility] K[facility]I [id number] [facility] 2024-07-04 18:42:00 2024-07-04 21:50:00 Emergency Carroll-Hubert s, Anna [facility] AT [facility] 1.84.114 350.1.13.10 4.2.7.2.686 [id number] [facility] 2024-06-28 11:14:00 2024-06-28 12:55:00 Outpatient X CARROLL-HUBERT S, ANNA CARROLL-HUBERT S, ANNA [facility] [id number] [facility] 2024-06-28 11:14:00 2024-06-28 12:55:00 Emergency Carroll-Hubert s, Anna [facility] AT [facility] 1.840.114 350.1.13.10 4.2.7.2.686 [id number] [facility] 2024-06-23 12:30:00 2024-06-23 13:05:38 Outpatient R LASHONDA SANTOS [facility] [id number] [facility] 2024-06-23 12:30:00 2024-06-23 13:05:38 Routine Visit Lashonda Santos [facility] YIELD ANALYST [facility] MATERNAL & [facility]ILD [facility] 1.840.114 350.1.13.10 4.2.7.2.686 [id number] [facility] 2024-06-19 04:13:00 2024-06-19 08:45:00 Outpatient X ADUM, MARIELA ADUM, MARIELA [facility] [id number] [facility] 2024-06-19 04:13:00 2024-06-19 08:45:00 Emergency Confucianism, Nadim Adum, Mariela L [facility] AT [facility] 1.0.114 350.1.13.10 4.2.7.2.686 [id number] [facility] 2024-06-15 00:00:00 2024-06-15 08:45:36 Abstract Lashonda Santos [facility] YIELD ANALYST [facility] 1.84.114 350.1.13.10 4.2.7.2.686 [id number] [facility] 2024-06-09 00:00:00 2024-06-09 13:07:20 Letter (Out) Lashonda Santos [facility] YIELD ANALYST [facility] 1..114 350.1.13.10 4.2.7.2.686 [id number] [facility] 2024-06-09 12:30:00 2024-06-09 13:06:31 Outpatient R LASHONDA SANTOS [facility] [id number] [facility] 2024-06-09 12:30:00 2024-06-09 13:06:31 Routine Visit Lashonda Santos [facility] YIELD ANALYST [facility] 1..114 350.1.13.10 4.2.7.2.686 [id number] [facility] 2024-06-08 00:00:00 2024-06-08 13:49:04 Abstract Lashonda Santos [facility] YIELD ANALYST [facility] 1.2.840.114 350.1.13.10 4.2.7.2.686 [id number] [facility] 2024-06-04 01:03:00 2024-06-04 04:45:00 Outpatient X GUERRERO WHITAKER VIEN [facility] KASI [id number] [facility] 2024-06-04 01:03:00 2024-06-04 04:45:00 Emergency Guerrero Whitaker [facility] AT [facility] 1.2.840.114 350.1.13.10 4.2.7.2.686 [id number] [facility] 2024-06-03 00:00:00 2024-06-03 13:29:05 Telephone Lashonda Santos [facility] YIELD ANALYST [facility] MATERNAL & [facility] 1.2.840.114 350.1.13.10 4.2.7.2.686 [id number] [facility] 2024-06-02 00:00:00 2024-06-02 08:24:06 Telephone Lashonda Santos [facility] YIELD ANALYST [facility] 1.2840.114 350.1.13.10 4.2.7.2.686 [id number] [facility] 2024-06-01 12:45:00 2024-06-01 14:40:38 Outpatient R LASHONDA SANTOS [facility] [id number] [facility] 2024-06-01 12:45:00 2024-06-01 14:40:38 Initial Visit Lashonda Santos [facility] YIELD ANALYST [facility] 1.2840.114 350.1.13.10 4.2.7.2.686 [id number] [facility] 2024-05-27 12:15:00 2024-05-27 12:15:00 Outpatient R LASHONDA SANTOS [facility] [id number] [facility] 2024-02-09 09:15:00 2024-02-09 09:15:[address] [facility] [id number] [facility] 2024-02-07 22:27:00 2024-02-07 23:41:00 Emergency X Mamadou MICHAELS [facility] ERT [id number] [facility] 2024-02-07 22:27:00 2024-02-07 23:41:00 Emergency Mamadou Michaels Hellen [facility] 1.2.840.114 350.1.13.10 4.2.7.2.686 [id number] [facility] 2023-12-18 14:30:00 2023-12-18 14:30:00 Outpatient Felicia [address]ENPUJAMARIELA [facility] [id number] [facility] 2023-12-17 16:09:29 2023-12-17 16:09:29 Outpatient SFA SFA [id number] Cj Carlisle 2023-12-12 14:00:00 2023-12-12 14:00:00 Outpatient Felicia CHEN MARIELA [facility] [id number] [facility] 2023-11-11 15:00:20 2023-11-11 15:00:20 Outpatient SFA SFA [id number] Cj Guzman Orestes 2023-10-30 09:20:09 2023-10-30 09:20:09 Outpatient SFA SFA [id number] Cj Carlisle 2023-10-16 14:55:13 2023-10-16 14:55:13 Outpatient SFA SFA [id number] Cj Guzman Orestes 2023-10-13 10:03:24 2023-10-13 10:03:24 Outpatient SFA SFA [id number] Cj Carlisle 2023-09-03 17:01:34 2023-09-03 17:01:34 Outpatient SFA SFA [id number] Cj Guzman Orestes 2023-08-05 17:09:08 2023-08-05 17:09:08 Outpatient SFA SFA [id number] Cj Carlisle 2023-07-11 10:26:43 2023-07-11 10:26:43 Outpatient SFA SFA [id number] Cj Carlisle 2023-07-05 12:46:18 2023-07-05 12:46:18 Outpatient SFA SFA [id number] Cj Carlsile 2023-06-04 16:14:59 2023-06-04 16:14:59 Outpatient SFA SFA [id number] Cj Carlisle 2023-05-21 14:50:27 2023-05-21 14:50:27 Outpatient SFA SFA [id number] Cj Carlisle 2023-05-07 13:29:15 2023-05-07 13:29:15 Outpatient SFA SFA [id number] Cj Carlisle 2023-05-04 14:07:34 2023-05-04 14:07:34 Outpatient SFA SFA [id number] Cj Carlisle 2023-04-30 15:40:18 2023-04-30 15:40:18 Outpatient SFA SFA [id number] Cj Carlisle 2023-04-08 12:40:22 2023-04-08 12:40:22 Outpatient SFA SFA [id number] Cj Carlisle 2023-03-28 13:58:41 2023-03-28 13:58:41 Outpatient SFA SFA [id number] Cj Guzman Orestes 2023-03-24 12:23:25 2023-03-24 12:23:25 Outpatient SFA SFA [id number] Cj Gzuman Orestes 2023-03-10 14:14:23 2023-03-10 14:14:23 Outpatient SFA SFA [id number] Cj Guzman Orestes 2023-02-17 13:57:55 2023-02-17 13:57:55 Outpatient SFA SFA [id number] Cj Carlisle 2022-12-31 14:01:12 2022-12-31 14:01:12 Outpatient SFA SFA [id number] Cj Carlisle 2022-10-17 13:22:30 2022-10-17 13:22:30 Outpatient SFA SFA [id number] Cj Carlisle 2022-07-04 16:27:15 2022-07-04 16:27:15 Outpatient SFA SFA [id number] Cj Carlisle 2022-06-25 09:30:43 2022-06-25 09:30:43 Outpatient SFA SFA [id number] Cj Carlisle 2022-04-04 00:00:00 2022-04-04 00:00:00 Outpatient Visit [id number]- [id number] -x67t-550 [id number] [id number] cf4-4333-a 14d-616d2c oiu938 2022-03-29 00:00:00 2022-03-29 00:00:00 Outpatient Visit [id number]- 9o02-382s -aee4-f53 bh6u7v4la [id number] 83r5v6hz-2 i34-784e-e ee4-f53cf0 d1d1ff 2022-03-23 00:00:00 2022-03-23 00:00:00 Outpatient Visit [id number]- r1x1-7y00 -pl57-58h m1i6z985c [id number] e47zzf83-y 3d1-7o71-z q57-19qs5u 7v201i 2022-03-20 00:00:00 2022-03-20 00:00:00 Outpatient Visit [id number] 499b-4139 -j201-v25 x4x311l73 [id number] [id number]-8 99b-4139-b 979-d90d6a 082f34 2022-03-11 00:00:00 2022-03-11 00:00:00 Outpatient Visit f3ifz072- 8dg4-4kr9 -9183-471 qgr93x29s [id number] s4qpx365-4 be8-4fb1-9 183-471bfe 09f04a 2022-03-05 00:00:00 2022-03-05 00:00:00 Outpatient Visit [id number]- 7883-4b9d -iy8k-11o [id number] [id number] 883-4b9d-a c7q-48a499 953bc3 2022-02-28 00:00:00 2022-02-28 00:00:00 Outpatient Visit [id number] rx02-99z9 -j1pm-3vs [id number] 1zt76a53-y f31-43y8-g 3bc-4ag829 212313 9113-07-11 00:00:00 2022-02-25 00:00:00 Outpatient Visit io0075w4- 03cc-4c8d -8777-5b3 [id number] [id number] qk2023m5-3 3cc-4c8d-8 777-2r4838 20b2eb 2019-11-17 00:00:00 2019-11-17 00:00:00 Telephone Guerrero Whitaker [facility] 1.2.840.114 350.1.13.10 4.2.7.2.686 [id number] [facility] 2019-10-25 00:00:00 2019-10-25 00:00:00 Orders Only Doctor Unassigned, [place] [facility] 1.2.840.114 350.1.13.10 4.2.7.2.686 [id number] [facility] 2019-10-21 00:00:00 2019-10-21 00:00:00 Office Visit Arlene Valentino [facility] YIELD ANALYST Encounter/ [id number] [facility] 2019-10-21 00:00:00 2019-10-21 00:00:00 Office Visit Arlene Valentino [facility] YIELD ANALYST Encounter/ [id number] [facility] 2019-10-19 00:00:00 2019-10-19 00:00:00 Office Visit Arlene Valentino Zule[facility] YIELD ANALYST Encounter/ [id number] [facility] 2019-10-19 00:00:00 2019-10-19 00:00:00 [facility]/ [id number] [facility] 2019-10-19 00:00:00 2019-10-19 00:00:00 Office Visit Arlene Valentino [facility] En[facility]/ [id number] [facility] 2019-10-18 00:00:00 2019-10-18 00:00:00 Office Visit Arlene Valentino [facility] En[facility]/ [id number] [facility] 2019-10-15 00:00:00 2019-10-15 00:00:00 Office Visit Arlene Valentino [facility] En[facility]/ [id number] [facility] 2019-10-14 00:00:00 2019-10-14 00:00:00 Office Visit Heaven Morrow [facility]/ [id number] [facility] 2019-10-14 00:00:00 2019-10-14 00:00:00 Office Visit Heaven Morrow [facility]/ [id number] [facility] 2019-10-14 00:00:00 2019-10-14 00:00:00 Office Visit Heaven Morrow [facility] En[facility]/ [id number] [facility] 2019-10-14 00:00:00 2019-10-14 00:00:00 [facility] En[facility]/ [id number] [facility] 2019-10-14 00:00:00 2019-10-14 00:00:00 Office Visit Heaven Morrow Maria Castillo, Stephanie A [facility] En[facility]/ [id number] [facility] 2019-10-14 00:00:00 2019-10-14 00:00:00 Office Visit Yina Green [facility] YIELD ANALYST Encounter/ [id number] [facility] 2019-10-11 00:00:00 2019-10-11 00:00:00 [facility] [id number] [facility] 2019-10-07 00:00:00 2019-10-07 00:00:00 Office Visit Responsible Provider, Not Yet Assigned Adali Mcpherson [facility] Encounter/ [id number] [facility] 2019-10-07 00:00:00 2019-10-07 00:00:00 Office Visit Responsible Provider, Not Yet Assigned Adali Mcpherson [facility] Encounter/ [id number] [facility] 2019-10-07 00:00:00 2019-10-07 00:00:00 Office Visit Responsible Provider, Not Yet Assigned Adali Mcpherson [facility] Encounter/ [id number] [facility] 2019-10-07 00:00:00 2019-10-07 00:00:00 [facility]/ [id number] [facility] 2019-10-07 00:00:00 2019-10-07 00:00:00 Office Visit Supply Manager, [facility] [employer] [employer] Shayy Rios [facility] Services Encounter/ [id number] [facility] 2019-10-07 00:00:00 2019-10-07 00:00:00 Office Visit Colette Chowdary Erica Sanchez, Dulce Webb, Maria Townsend, Christine [facility] YIELD ANALYST Encounter/ [id number] [facility] 2019-10-06 00:00:00 2019-10-06 00:00:00 Office Visit Yina Green [facility] YIELD ANALYST Encounter/ [id number] [facility] 2019-09-30 15:00:00 2019-09-30 15:00:00 Outpatient R EMMY BONILLA [facility] [id number] [facility] 2019-09-16 00:00:00 2019-09-16 00:00:00 [facility] (Out[facility] 1.2.840.114 350.1.13.10 4.2.7.2.686 [id number] [facility] 2019-08-31 16:27:53 2019-08-31 16:42:53 Routine Visit Emmy Bonilla [facility] 1.2.840.114 350.1.13.10 4.2.7.2.686 [id number] [facility] 2019-08-27 15:00:00 2019-08-27 18:05:[address] [facility] [id number] [facility] 2019-05-03 00:00:00 2019-05-03 00:00:00 Case Management Guerrero Whitaker [facility] 1.2.840.114 350.1.13.10 4.2.7.2.686 [id number] [facility] 2019-04-21 00:00:00 2019-04-21 00:00:00 Case Management Guerrero Whitaker [facility] 1.2.840.114 350.1.13.10 4.2.7.2.686 [id number] [facility] 2019-04-21 00:00:00 2019-04-21 00:00:00 Telephone Guerrero Whitaker [facility] Building 1.2.840.114 350.1.13.10 4.2.7.2.686 [id number] [facility] 2019-04-20 00:00:00 2019-04-20 00:00:00 Telephone Guerrero Whitaker [facility] Building 1.2.840.114 350.1.13.10 4.2.7.2.686 [id number] [facility] 2019-04-14 15:00:27 2019-04-14 15:15:27 Clinical Psychologist Visit 1, Adc Lab Guerrero Whitaker [facility] 1.2.840.114 350.1.13.10 4.2.7.2.686 [id number] [facility] 2019-04-14 15:00:00 2019-04-14 15:00:00 Outpatient R GUERRERO WHITAKER [facility] [id number] [facility] 2019-04-14 13:41:25 2019-04-14 14:43:27 Routine Visit Guerrero Whitaker [facility] 1.2.840.114 350.1.13.10 4.2.7.2.686 [id number] [facility] 2019-04-14 00:00:00 2019-04-14 00:00:00 Letter (Out) Guerrero Whitaker [facility] 1.2.840.114 350.1.13.10 4.2.7.2.686 [id number] [facility] 2019-04-14 00:00:00 2019-04-14 00:00:00 Orders Only Doctor Unassigned, [place] [facility] 1.2.840.114 350.1.13.10 4.2.7.2.686 [id number] [facility] 2019-04-07 00:00:00 2019-04-07 00:00:00 Telephone Guerrero Whitaker [facility] 1.2.840.114 350.1.13.10 4.2.7.2.686 [id number] [facility] 2019-04-01 00:00:00 2019-04-01 00:00:00 Telephone Guerrero Whitaker [facility] 1.2.840.114 350.1.13.10 4.2.7.2.686 [id number] [facility] 2019-03-17 10:12:58 2019-03-24 08:59:00 Clinical Psychologist Visit 1, Adc Lab Guerrero Whitaker [facility] 1.2.840.114 350.1.13.10 4.2.7.2.686 [id number] [facility] 2019-03-17 10:15:00 2019-03-17 10:15:00 Outpatient R JULIANNE [facility] [id number] [facility] 2019-03-17 08:58:48 2019-03-17 10:02:46 Initial Visit Guerrero Whitaker [facility] 1.2.840.114 350.1.13.10 4.2.7.2.686 [id number] 134 [id number] [facility] Results Test Description Test Time Test Comments Results Result Co mments Source [facility] [id number] 04:08:38* Test Item Value Reference Range Interpretation Comme nts VENOUS BASE EXCESS, CORD (te st code = 3234626955) -1.2 mEq/L VENOUS PH, CORD (test code = 4463173028) 7.41 7.25-7.45 VENOUS PC02, CORD (test code = 7463806128) 37 27-49 VENOUS PO2, CORD (test code = 4147962399) 29 17-41 VENOUS BICARBONATE, CORD (te st code = 0902624208) 23 12-29 [facility] [id number] 04:08:13* Test Item Value Reference Range Interpretation Comme nts BASE EXCESS, CORD (test code = 8359386063) -4.0 mEq/L AC PH, CORD (BEAKER) (test c ode = 7617511345) 7.33 7.18-7.38 PC02, CORD (test code = 3477252296) 42 32-66 PO2, CORD (test code = 0232120292) 34 10-30 H BICARBONATE, CORD (test code = 1244153806) 22 17-27 Lab Interpretation (test cod e = 42578-0) Abnormal [facility] [id number] 16:04:00 Logan Garcia MD ? ? 07/22/2024 10:54 AM Central Neuraxial Block Date/Time: 07/22/2024 10:04 AM Performed by: Logan Garcia MDAuthorized by: Miguel Carreno MD ?Patient Location: OtherReason for Block: Labor analgesia, OB request, Patient request, Post-op pain management and Surgical anesthesiaStaff: ?Anesthesiologist: Miguel Carreno MD ?Resident/COLLAR BASTER JUMPBASTING: Logan Garcia MD ?Performed by: resident/CRNAPreanesthetic Checklist: patient identified, IV checked, risks andbenefits explained, monitors and equipment checked, timeout performed, pre-op evaluation, surgical consent, site marked, ob/surgical consent approval, ob/surgical consent verified and anesthesia consentProcedure: ?Type of Neuraxial: Epidural ? Sterility Prep cap, drape, gloves, hand hygiene and mask ? ?Sedation Level no sedation ?Patient Position: sitting ?Prep: Betadine ? ?Monitoring: continuouspulse ox, heart rate / toco and NIBP ?Location: lumbar (1-5) ?Lumbar: L4-L5 ?Approach: midline ? ?Technique: catheter and MICHELLE saline ?Guidance with: landmark technique}Epidural/Spinal Anderson and/or Catheter: ?Epidural/Spinal Kit: BBraun ?Needle Type: Tuohy ?Needle Gauge: 17 G ?Needle Length:3.5 in (8.89 cm) ?Needle Insertion Depth: 9 ?Catheter Type: multiport ? ?Catheter Size: 19 G ? ?Catheter at Skin Depth: 14 ?Number of Attempts: 3 ?Test Dose: lidocaine 1.5% with epinephrine 1-to-200,000 and negative ? ?Dose: 3 cc ? ?Catheter Securement Method: clear occlusive dressing, liquid medical adhesive, surgical tape and TegadermAssessment: ?Block Outcome: a full evaluation is pending, patient comfortable and patient tolerated procedure well ? ?Procedure Assessment: patient tolerated procedure well with no complicationsNotes: ? Patient identified; pre-procedure verification.Patient prepped and draped in standard sterile fashion using betadine x 3Subcutaneous infiltration with 1% Lidocaine Attempts 1 and 2 by CA1. Attempt 3 by attending 1 level below Ca1's attempt. MICHELLE at 9 cm; catheter secured at 14 cm with mastisol, tegaderm x2 and 3-inch clear tape.Aspiration test negative x 3Test dose negativePatient tolerated procedure well with no immediate complications Epidural expectations; PCEA explained and fall precautions given.[facility] URINALYSIS W SPECIFIC [id number] 21:18:00* Test Item Value Reference Range Interpretation Comme nts POCT U SP GRAV (test code = 3255) . 1.005-1.025 POCT PH U (test code = 3254) 8 mg/dl 5-8 POCT U LEUK EST (test code = 3263) 2+ Negative - Negative POCT U NIT (test [...] POCT U COLOR (test code = 3266) POCT U APPEAR (test code = 3267) [facility] URINALYSIS W SPECIFIC [id number] 17:22:00* Test Item Value Reference Range Interpretation Comme nts POCT U SP GRAV (test code = 3255) . 1.005-1.025 POCT PH U (test code = 3254) . 5-8 POCT U LEUK EST (test code = 3263) . Negative - N egative POCT U NIT (test code = 3262) . Negative - Negati ve POCT U PROT (test code = 3259) Trace Negative - Negat devang POCT U GLU (test code = 3256) Nml Negative - Negati ve POCT U KETONE (test code = 3258) . Negative - Neg ative POCT U UROBILI (test code = 3260) . 0.2-1 POCT U BILI (test code = 3261) . Negative - Negat devang POCT U BLD (test code = 3257) . Negative - Negati ve POCT U COLOR (test code = 3266) . POCT U APPEAR (test code = 3267) ..[facility] [id number] 18:25:00* Test Item Value Reference Range Interpretation Comme nts POCT U SP GRAV (test code = 3255) . 1.005-1.025 POCT PH U (test code = 3254) . 5-8 POCT U LEUK EST (test code = 3263) . Negative - N egative POCT U NIT (test code = 3262) . Negative - Negati ve POCT U PROT (test code = 3259) trace Negative - Negat devang POCT U GLU (test code = 3256) neg Negative - Negati ve POCT U KETONE (test code = 3258) . Negative - Neg ative POCT U UROBILI (test code = 3260) . 0.2-1 POCT U BILI (test code = 3261) . Negative - Negat devang POCT U BLD (test code = 3257) . Negative - Negati ve POCT U COLOR (test code = 3266) . POCT U APPEAR (test code = 3267) . [facility] PELVIS > 14 [id number] 13:28:48ORDERING PHYSICIAN: MARIELA CHEN CLINICAL HISTORY: LEAKING [...] 618 cm, 34 weeks 6 days.EFW: [address] [facility] POCT URINALYSIS W SPECIFIC [id number] 17:25:00* Test Item Value Reference Range Interpretation [...] U APPEAR (test code = 3267) . [facility] [id number] 17:50:58 * Test Item Value Reference Range Interpretation Comme [facility] Rubella screen IgG (test code = 8481460727) Negative Negative ARNULFO (test code = ARNULFO) Positive - Indicat es the patient was exposed to Rubella through infection or vaccination.Negative - Indicates the patient could be susceptible to Rubella infection.Equivocal - A second specimen should be sent. [facility] ANTIBODY [id number] 17:50:58* Test Item Value Reference Range Interpretation Comme [facility] VZV IgG antibody (test code = 23211-3) Equivocal Negative ARNULFO (test code = ARNULFO) Positive - Indicat es the patient was exposed to VZV through infection or vaccination.Negative - Indicates the patient could be susceptible to VZV infection.Equivocal - A second specimen should be sent for testing. [facility] - SYPHILIS [id number] 16:03:23* Test Item Value Reference Range Interpretation Comme [facility] Syphilis IgG/IgM (test code = 97447-1) Non-reactive Non-reactive ARNULFO (test code = ARNULFO) Non-reactive - No serologic evidence of T. pallidum infection. Cannot exclude incubating or early syphilis. Submit a second specimen in 2-4 weeks if syphilis is clinically suspected. Equivocal - Further testing to follow. Reactive - Further testing to follow. Lab Interpretation (test code = 26923-6) Normal [facility]2 AG-AB WITH [id number] 10:09:25* Test Item Value Reference Range Interpretation Comme nts HIV Semi-quantitative (test code = 15245-1) 0.10 Negative ARNULFO (test code = ARNULFO) Non-reactive for HIV-1 antigen and HIV-1/HIV-2 antibodies. ?No laboratory evidence of HIV infection. ?Repeat in 2-4 weeks if acute HIV infection is suspected. [facility] HospitalHCV [id number] 08:51:31* Test Item Value Reference Range Interpretation Comme nts HCV Ab (test code = 26918-3) Negative HCV Semi-Quantitative (test code = 81739-1) 0.[address] [facility] HospitalHEPATITIS B SURFACE [id number] 08:33:53 * Test Item Value Reference Range Interpretation Comme nts HBsAg Semi-Quantitative (ruslan t code = 5195-3) 0.[address] [address] HospitalGlucose 1 Hour Post [id number] 05:51:36* Test Item Value Reference Range Interpretation Comme nts GLUC 1 HR (test code = 4163080029) 89 mg/dL 120-170 L Lab Interpretation (test cod e = 46807-4) Abnormal [facility]CBC WITH [id number] 05:33:31* Test Item Value Reference Range Interpretation [...] 32.5 g/dL 31.6-35.1 RDW-SD (test code = 85112-9) 36.8 fL 39.0-49.9 L RDW-CV (test code = 788-0) 12.7 % 12.0-15.5 PLT (test code = 777-3) 404 166-358 H MPV (test code = 66371-2) 9.2 fL 9.5-12.9 L NRBC/100 WBC (test code = 1619487798) 0.0 0.0-10.0 NRBC x10^3 (test code = 2794929664) See_Comment [Automated messa ge] The system which generated this result transmitted reference range: 10*3/?L. The reference range was not used to interpret this result as normal/abnormal. GRAN MAT (NEUT) % (test code = 770-8) 75.0 % IMM GRAN % (test code = 4639146058) 0.50 % LYMPH % (test code = 736-9) 16.1 % MONO % (test code = 5905-5) 7.5 % EOS % (test code = 713-8) 0.6 % BASO % (test code = 706-2) 0.3 % GRAN MAT x10^3(ANC) (test code = 5590930545) 8.23 10*3/uL 1.88-7.09 H IMM GRAN x10^3 (test code = 6228004154) 0.05 10*3/uL 0.00-0.06 LYMPH x10^3 (test code = 731-0) 1.76 10*3/uL 1.32-3.29 MONO x10^3 (test code = 742-7) 0.82 10*3/uL 0.33-0.92 EOS x10^3 (test code = 711-2) 0.07 10*3/uL 0.03-0.39 BASO x10^3 (test code = 704-7) 0.03 10*3/uL 0.01-0.07 Lab Interpretation (test code = 68824-5) Abnormal [facility] HospitalPRENATAL WORKUP, BLOOD [id number] 05:01:00 * Test Item Value Reference Range Interpretation Comme nts ABO & RH (test code = 20) A POSITIVE IAT (test code = 1185) Negative [facility] HospitalPODC [id number] 18:09:00* Test Item Value Reference Range Interpretation Comme nts POCT PREG (test code = 1605) Positive On board controls acceptable with C Line (test code = 3574) Yes POCT PREG LOT # (test code = 3575) POCT PREG TEST DATE ( test code = 3576) [facility] Urinalysis w/o Specific [id number] 18:09:00* Test Item Value Reference Range Interpretation [...] = 3257) neg Negative - Negati ve [facility] HospitalCHLAMYDIA, NAAT, [id number] 12:29:30* Test Item Value Reference Range Interpretation Comme nts CHLAMYDIA, NAAT, URINE (test code = 41524) POSITIVE NEGATIVE A Testing is perfo rmed with Elpidio MIRA 6800/8800 systems usingreal-time polymerase chain reaction (PCR) method. GONORRHEA, NAAT, [id number] 12:29:30* Test Item Value Reference Range Interpretation Comme nts GONORRHEA, NAAT, URINE (test code = 07392) NEGATIVE NEGATIVE Testing is perfo rmed with Elpidio MIRA 6800/8800 systems usingreal-time polymerase chain reaction (PCR) method. A negative result does not exclude low level infection, specimensampling error, or collection error. RPR REFLEX TO T. PALLIDUM - [id number] 04:03:32* Test Item Value Reference Range Interpretation Comme nts RPR (test code = 02378) NON-REACTIVE NON-REACTIVE RPR TITER (test code = 3500) NOT INDIC. TITER NOT INDIC. HIV 1/2 4TH GEN, RFLX [id number] 04:01:26* Test Item Value Reference Range Interpretation Comme nts HIV 1/2 4TH GEN, RFLX CONF ( test code = 3514) NON-REACTIVE NON-REACTIVE HEPATITIS PANEL, [id number] 04:01:26* Test Item Value Reference Range Interpretation Comme nts HEPATITIS A IgM (test code = 16060) NON-REACTIVE NON-REACTIVE HEPATITIS B CORE IgM (test code = 4644) NON-REACTIVE NON-REACTIVE HEPATITIS B SURF AG (test code = 2739) NON-REACTIVE NON-REACTIVE HEPATITIS C ANTIBODY (test code = 4675) NON-REACTIVE NON-REACTIVE INTERPRETATION HEPATITIS A: (test code = 2552) (NOTE) Hepatitis A sero logy shows no evidence of acute hepatitis A. INTERPRETATION HEPATITIS B: (test code = 98931) (NOTE) Hepatitis B sero logy shows no evidence of acute hepatitis B andno indication of exposure to hepatitis B virus in the previous huyen eight months. INTERPRETATION HEPATITIS C: (test code = 11236) (NOTE) Hepatitis C sero logy shows no evidence of exposure to hepatitisC virus at this time. It can take up to 12 months after exposure tothe hepatitis C virus for antibodies to become detectable in the blood in certain patients. UNLESS OTHERWISE INDICATED, ALL TESTING PERFORMED AT [facility] [address] [place] [address] BURRER HAND: SHAYY SANTOS M.D. CLIA NUMBER [id number] [facility] [place]. [id number] CULTURE, ROUTINE SENSITIVITY ON [id number] 14:09:05SPECIMEN NUMBER: [id number] CULTURE, ROUTINE SENSITIVITY ON ALL SPECIMEN NUMBER: [id number] SOURCE: OTHER SOURCE REPORT STATUS: FINAL FINAL REPORT: 07/09/2023 NO SPECIMEN RECEIVED FOR TESTING. CHARGES DELETED.HIV 1/2 4TH GEN, RFLX [id number] 02:08:57* Test Item Value Reference Range Interpretation Comme nts HIV 1/2 4TH GEN, RFLX CONF ( test code = 3514) NON-REACTIVE NON-REACTIVE HEPATITIS PANEL, [id number] 02:08:57* Test Item Value Reference Range Interpretation Comme nts HEPATITIS A IgM (test code = 42178) NON-REACTIVE NON-REACTIVE HEPATITIS B CORE IgM (test code = 4644) NON-REACTIVE NON-REACTIVE HEPATITIS B SURF AG (test code = 2739) NON-REACTIVE NON-REACTIVE HEPATITIS C ANTIBODY (test code = 4675) NON-REACTIVE NON-REACTIVE INTERPRETATION HEPATITIS A: (test code = 2552) (NOTE) Hepatitis A serology shows no evidence of acute hepatitis A. INTERPRETATION HEPATITIS B: (test code = 91624) (NOTE) Hepatitis B serology shows no evidence of acute hepatitis B andno indication of exposure to hepatitis B virus in the previous huyen eight months. INTERPRETATION HEPATITIS C: (test code = 61723) (NOTE) Hepatitis C serology shows no evidence of exposure to hepatitisC virus at this time. It can take up to 12 months after exposure tothe hepatitis C virus for antibodies to become detectable in the blood in certain patients. [id number] 23:37:07* Test Item Value Reference Range Interpretation Comme nts RPR RESULT (test code = 3501) NON-REACTIVE NON-REACTIVE RPR TITER (test code = 3500) NOT INDIC. TITER NOT INDIC. CT/NG, NAAT, [id number] 14:03:18* Test Item Value Reference Range Interpretation Comme nts CHLAMYDIA, NAAT, URINE (test code = 13563) NEGATIVE NEGATIVE Testing is perfo rmed with Elpidio MIRA 6800/8800 systems usingreal-time polymerase chain reaction (PCR) method. A negative result does not exclude low level infection, specimensampling error, or collection error. GONORRHEA, NAAT, URINE (test code = 19582) NEGATIVE NEGATIVE Testing is perfo rmed with Elpidio MIRA 6800/8800 systems usingreal-time polymerase chain reaction (PCR) method. A negative result does not exclude low level infection, specimensampling error, or collection error. UNLESS OTHERWISE INDICATED, ALL TESTING PERFORMED AT [facility] [address] [place] [address] BURRER HAND: Meredith RAJANIA NUMBER [id number] [facility] [place]. [id number] CULTURE, [id number] 11:36:54SPECIMEN NUMBER: [id number] CULTURE, URINE SPECIMEN NUMBER: [id number] SPECIMEN COMMENT: URINE SOURCE: URINE REPORT STATUS: FINAL FINAL REPORT: 07/07/2023 50-100,000 CFU/ML UROGENITAL LINDSAY PRESENT NO C OMMON PATHOGENSTRICHOMONAS, NAAT, [id number] 16:23:16* Test Item Value Reference Range Interpretation Comme nts TRICHOMONAS, NAAT, URINE (test code = 71384) NEGATIVE NEGATIVE Testing is perfo rmed with Elpidio MIRA 6800/8800 method usingreal-time polymerase chain reaction (PCR) method. A negative result does not exclude low level infection, specimensampling error, or collection error. CHLAMYDIA, NAAT, [id number] 16:22:13* Test Item Value Reference Range Interpretation Comme nts CHLAMYDIA, NAAT, URINE (test code = 52460) POSITIVE NEGATIVE A Testing is perfo rmed with Elpidio MIRA 6800/8800 systems usingreal-time polymerase chain reaction (PCR) method. GONORRHEA, NAAT, [id number] 16:22:13* Test Item Value Reference Range Interpretation Comme nts GONORRHEA, NAAT, URINE (test code = 09139) NEGATIVE NEGATIVE Testing is perfo rmed with Elpidio MIRA 6800/8800 systems usingreal-time polymerase chain reaction (PCR) method. A negative result does not exclude low level infection, specimensampling error, or collection error. RPR REFLEX TO T. PALLIDUM - [id number] 05:31:29* Test Item Value Reference Range Interpretation Comme nts RPR (test code = 59571) NON-REACTIVE NON-REACTIVE RPR TITER (test code = 3500) NOT INDIC. TITER NOT INDIC. HIV 1/2 4TH GEN, RFLX [id number] 05:05:42* Test Item Value Reference Range Interpretation Comme nts HIV 1/2 4TH GEN, RFLX CONF ( test code = 3514) NON-REACTIVE NON-REACTIVE HEPATITIS PANEL, [id number] 05:05:42* Test Item Value Reference Range Interpretation Comme nts HEPATITIS A IgM (test code = 92416) NON-REACTIVE NON-REACTIVE HEPATITIS B CORE IgM (test code = 4644) NON-REACTIVE NON-REACTIVE HEPATITIS B SURF AG (test code = 2739) NON-REACTIVE NON-REACTIVE HEPATITIS C ANTIBODY (test code = 4675) NON-REACTIVE NON-REACTIVE INTERPRETATION HEPATITIS A: (test code = 2552) (NOTE) Hepatitis A sero logy shows no evidence of acute hepatitis A. INTERPRETATION HEPATITIS B: (test code = 87332) (NOTE) Hepatitis B sero logy shows no evidence of acute hepatitis B andno indication of exposure to hepatitis B virus in the previous huyen eight months. INTERPRETATION HEPATITIS C: (test code = 49923) (NOTE) Hepatitis C sero logy shows no evidence of exposure to hepatitisC virus at this time. It can take up to 12 months after exposure tothe hepatitis C virus for antibodies to become detectable in the blood in certain patients. [facility] has important pathology staff changes effective 10/16/2022. New pathology staff will provide uninterrupted, excellent patient care and clinical consultation. See URL: [email or web address]. UNLESS OTHERWISE INDICATED, ALL TESTING PERFORMED AT [facility] [address] [place] [address] BURRER HAND: CAMPOS ALVARENGA M.D. CLIA NUMBER [id number] [place]. [id number] CHLAMYDIA, NAAT, [id number] 13:11:20* Test Item Value Reference Range Interpretation Comme nts CHLAMYDIA, NAAT (test code = 13598) NEGATIVE NEGATIVE IMPORTANT NO KWAKU: SEE ANNOUNCEMENT AT [email or web address] Note: Assay methodology is nucleic acid amplification by gin inspector mediated amplification (TMA) utilizing the Aptima Combo 2 Assay. GONORRHEA, NAAT, [id number] 13:11:20* Test Item Value Reference Range Interpretation Comme nts GONORRHEA, NAAT (test code = 90076) NEGATIVE NEGATIVE IMPORTANT NO KWAKU: SEE ANNOUNCEMENT AT [email or web address] Note: Assay methodology is nucleic acid amplification by gin inspector mediated amplification (TMA) utilizing the Aptima Combo 2 Assay. UNLESS OTHERWISE INDICATED, ALL TESTING PERFOR[facility] [address] [place] [address] BURRER HAND: CAMPOS ALVARENGA M.D. CLIA NUMBER [id number] [place]. [id number] CHLAMYDIA, AMPLIFIED, [id number] 00:00:00* Test Item Value Reference Range Interpretation Comme nts CHLAMYDIA, NAAT (test code = 97748) NEGATIVE GC, AMPLIFIED, [id number] 00:00:00* Test Item Value Reference Range Interpretation Comme nts GONORRHEA, NAAT (test code = 34593) NEGATIVE CHLAMYDIA, AMPLIFIED, [id number] 00:00:00* Test Item Value Reference Range Interpretation Comme nts CHLAMYDIA, NAAT (test code = 88786) NEGATIVE GC, AMPLIFIED, [id number] 00:00:00* Test Item Value Reference Range Interpretation Comme nts GONORRHEA, NAAT (test code = 33807) NEGATIVE CHLAMYDIA, AMPLIFIED, [id number] 00:00:00* Test Item Value Reference Range Interpretation Comme nts CHLAMYDIA, NAAT (test code = 05837) NEGATIVE GC, AMPLIFIED, [id number] 00:00:00* Test Item Value Reference Range Interpretation Comme nts GONORRHEA, NAAT (test code = 38969) NEGATIVE CHLAMYDIA, AMPLIFIED, [id number] 00:00:00* Test Item Value Reference Range Interpretation Comme nts CHLAMYDIA, NAAT (test code = 35591) NEGATIVE GC, AMPLIFIED, [id number] 00:00:00* Test Item Value Reference Range Interpretation Comme nts GONORRHEA, NAAT (test code = 94870) NEGATIVE CHLAMYDIA, AMPLIFIED, [id number] 00:00:00* Test Item Value Reference Range Interpretation Comme nts CHLAMYDIA, NAAT (test code = 51708) NEGATIVE GC, AMPLIFIED, [id number] 00:00:00* Test Item Value Reference Range Interpretation Comme nts GONORRHEA, NAAT (test code = 52315) NEGATIVE CHLAMYDIA, AMPLIFIED, [id number] 00:00:00* Test Item Value Reference Range Interpretation Comme nts CHLAMYDIA, NAAT (test code = 88732) NEGATIVE GC, AMPLIFIED, [id number] 00:00:00* Test Item Value Reference Range Interpretation Comme nts GONORRHEA, NAAT (test code = 59318) NEGATIVE CHLAMYDIA, AMPLIFIED, [id number] 00:00:00* Test Item Value Reference Range Interpretation Comme nts CHLAMYDIA, NAAT (test code = 15980) NEGATIVE GC, AMPLIFIED, [id number] 00:00:00* Test Item Value Reference Range Interpretation Comme nts GONORRHEA, NAAT (test code = 65117) NEGATIVE CHLAMYDIA, AMPLIFIED, [id number] 00:00:00* Test Item Value Reference Range Interpretation Comme nts CHLAMYDIA, NAAT (test code = 31867) NEGATIVE GC, AMPLIFIED, [id number] 00:00:00* Test Item Value Reference Range Interpretation Comme nts GONORRHEA, NAAT (test code = 78697) NEGATIVE CT/NG, NAAT, [id number] 19:10:11* Test Item Value Reference Range Interpretation Comme nts GONORRHEA, NAAT (test code = 76505) NEGATIVE NEGATIVE IMPORTANT NO KWAKU: SEE ANNOUNCEMENT AT [email or web address] Pacific Resource GroupKit Note: Assay methodology is nucleic acid amplification by gin inspector mediated amplification (TMA) utilizing the Aptima Combo 2 Assay. CHLAMYDIA, NAAT (test code = 54701) POSITIVE NEGATIVE A IMPORTANT NO KWAKU: SEE ANNOUNCEMENT AT [email or web address] Pacific Resource GroupKit Note: Assay methodology is nucleic acid amplification by gin inspector mediated amplification (TMA) utilizing the Aptima Combo 2 Assay. UNLESS OTHERWISE INDICATED, ALL TESTING PERFORMED [facility] [address] [place] [address] BURRER HAND: CAMPOS ALVARENGA M.D. CLIA NUMBER [id number] [facility] [place]. [id number] GC AND CHLAMYDIA, AMPLIFIED, [id number] 00:00:00* Test Item Value Reference Range Interpretation Comme nts GONORRHEA, NAAT (test code = 19851) NEGATIVE CHLAMYDIA, NAAT (test code = 06692) POSITIVE GC AND CHLAMYDIA, AMPLIFIED, [id number] 00:00:00* Test Item Value Reference Range Interpretation Comme nts GONORRHEA, NAAT (test code = 65538) NEGATIVE CHLAMYDIA, NAAT (test code = 54760) POSITIVE GC AND CHLAMYDIA, AMPLIFIED, [id number] 00:00:00* Test Item Value Reference Range Interpretation Comme nts GONORRHEA, NAAT (test code = 45460) NEGATIVE CHLAMYDIA, NAAT (test code = 12487) POSITIVE GC AND CHLAMYDIA, AMPLIFIED, [id number] 00:00:00* Test Item Value Reference Range Interpretation Comme nts GONORRHEA, NAAT (test code = 01158) NEGATIVE CHLAMYDIA, NAAT (test code = 58290) POSITIVE GC AND CHLAMYDIA, AMPLIFIED, [id number] 00:00:00* Test Item Value Reference Range Interpretation Comme nts GONORRHEA, NAAT (test code = 09977) NEGATIVE CHLAMYDIA, NAAT (test code = 58808) POSITIVE GC AND CHLAMYDIA, AMPLIFIED, [id number] 00:00:00* Test Item Value Reference Range Interpretation Comme nts GONORRHEA, NAAT (test code = 80441) NEGATIVE CHLAMYDIA, NAAT (test code = 59073) POSITIVE GC AND CHLAMYDIA, AMPLIFIED, [id number] 00:00:00* Test Item Value Reference Range Interpretation Comme nts GONORRHEA, NAAT (test code = 47186) NEGATIVE CHLAMYDIA, NAAT (test code = 18475) POSITIVE GC AND CHLAMYDIA, AMPLIFIED, [id number] 00:00:00* Test Item Value Reference Range Interpretation Comme nts GONORRHEA, NAAT (test code = 31653) NEGATIVE CHLAMYDIA, NAAT (test code = 65441) POSITIVE HIV AB/AG COMBO RFLX [id number] 00:00:00* Test Item Value Reference Range Interpretation Comme nts HIV 1/2 4TH GEN, RFLX CONF ( test code = 3514) NON-REACTIVE ACUTE HEPATITIS [id number] 00:00:00* Test Item Value Reference Range Interpretation Comme nts HEPATITIS A IgM (test code = 92311) NON-REACTIVE HEPATITIS B CORE IgM (test c ode = 4644) NON-REACTIVE HEPATITIS B SURF AG (test co de = 2739) NON-REACTIVE HEPATITIS C ANTIBODY (test c ode = 4675) NON-REACTIVE INTERPRETATION HEPATITIS A: (test code = 2552) (NOTE) INTERPRETATION HEPATITIS B: (test code = 90546) (NOTE) INTERPRETATION HEPATITIS C: (test code = 44792) (NOTE) GC, AMPLIFIED, [id number] 00:00:00* Test Item Value Reference Range Interpretation Comme nts GONORRHEA, NAAT (test code = 29373) NEGATIVE CHLAMYDIA, AMPLIFIED, [id number] 00:00:00* Test Item Value Reference Range Interpretation Comme nts CHLAMYDIA, NAAT (test code = 65101) POSITIVE HIV AB/AG COMBO RFLX [id number] 00:00:00* Test Item Value Reference Range Interpretation Comme nts HIV 1/2 4TH GEN, RFLX CONF ( test code = 3514) NON-REACTIVE ACUTE HEPATITIS [id number] 00:00:00* Test Item Value Reference Range Interpretation Comme nts HEPATITIS A IgM (test code = 63480) NON-REACTIVE HEPATITIS B CORE IgM (test c ode = 4644) NON-REACTIVE HEPATITIS B SURF AG (test co de = 2739) NON-REACTIVE HEPATITIS C ANTIBODY (test c ode = 4675) NON-REACTIVE INTERPRETATION HEPATITIS A: (test code = 2552) (NOTE) INTERPRETATION HEPATITIS B: (test code = 14404) (NOTE) INTERPRETATION HEPATITIS C: (test code = 27001) (NOTE) GC, AMPLIFIED, [id number] 00:00:00* Test Item Value Reference Range Interpretation Comme nts GONORRHEA, NAAT (test code = 70301) NEGATIVE CHLAMYDIA, AMPLIFIED, [id number] 00:00:00* Test Item Value Reference Range Interpretation Comme nts CHLAMYDIA, NAAT (test code = 45686) POSITIVE HIV AB/AG COMBO RFLX [id number] 00:00:00* Test Item Value Reference Range Interpretation Comme nts HIV 1/2 4TH GEN, RFLX CONF ( test code = 3514) NON-REACTIVE ACUTE HEPATITIS [id number] 00:00:00* Test Item Value Reference Range Interpretation Comme nts HEPATITIS A IgM (test code = 05226) NON-REACTIVE HEPATITIS B CORE IgM (test c ode = 4644) NON-REACTIVE HEPATITIS B SURF AG (test co de = 2739) NON-REACTIVE HEPATITIS C ANTIBODY (test c ode = 4675) NON-REACTIVE INTERPRETATION HEPATITIS A: (test code = 2552) (NOTE) INTERPRETATION HEPATITIS B: (test code = 86854) (NOTE) INTERPRETATION HEPATITIS C: (test code = 68365) (NOTE) GC, AMPLIFIED, [id number] 00:00:00* Test Item Value Reference Range Interpretation Comme nts GONORRHEA, NAAT (test code = 42646) NEGATIVE CHLAMYDIA, AMPLIFIED, [id number] 00:00:00* Test Item Value Reference Range Interpretation Comme nts CHLAMYDIA, NAAT (test code = 18827) POSITIVE HIV AB/AG COMBO RFLX [id number] 00:00:00* Test Item Value Reference Range Interpretation Comme nts HIV 1/2 4TH GEN, RFLX CONF ( test code = 3514) NON-REACTIVE ACUTE HEPATITIS [id number] 00:00:00* Test Item Value Reference Range Interpretation Comme nts HEPATITIS A IgM (test code = 77918) NON-REACTIVE HEPATITIS B CORE IgM (test c ode = 4644) NON-REACTIVE HEPATITIS B SURF AG (test co de = 2739) NON-REACTIVE HEPATITIS C ANTIBODY (test c ode = 4675) NON-REACTIVE INTERPRETATION HEPATITIS A: (test code = 2552) (NOTE) INTERPRETATION HEPATITIS B: (test code = 88198) (NOTE) INTERPRETATION HEPATITIS C: (test code = 40791) (NOTE) GC, AMPLIFIED, [id number] 00:00:00* Test Item Value Reference Range Interpretation Comme nts GONORRHEA, NAAT (test code = 43708) NEGATIVE CHLAMYDIA, AMPLIFIED, [id number] 00:00:00* Test Item Value Reference Range Interpretation Comme nts CHLAMYDIA, NAAT (test code = 02533) POSITIVE HIV AB/AG COMBO RFLX [id number] 00:00:00* Test Item Value Reference Range Interpretation Comme nts HIV 1/2 4TH GEN, RFLX CONF ( test code = 3514) NON-REACTIVE ACUTE HEPATITIS [id number] 00:00:00* Test Item Value Reference Range Interpretation Comme nts HEPATITIS A IgM (test code = 15862) NON-REACTIVE HEPATITIS B CORE IgM (test c ode = 4644) NON-REACTIVE HEPATITIS B SURF AG (test co de = 2739) NON-REACTIVE HEPATITIS C ANTIBODY (test c ode = 4675) NON-REACTIVE INTERPRETATION HEPATITIS A: (test code = 2552) (NOTE) INTERPRETATION HEPATITIS B: (test code = 61520) (NOTE) INTERPRETATION HEPATITIS C: (test code = 18703) (NOTE) GC, AMPLIFIED, [id number] 00:00:00* Test Item Value Reference Range Interpretation Comme nts GONORRHEA, NAAT (test code = 27912) NEGATIVE CHLAMYDIA, AMPLIFIED, [id number] 00:00:00* Test Item Value Reference Range Interpretation Comme nts CHLAMYDIA, NAAT (test code = 36948) POSITIVE HIV AB/AG COMBO RFLX [id number] 00:00:00* Test Item Value Reference Range Interpretation Comme nts HIV 1/2 4TH GEN, RFLX CONF ( test code = 3514) NON-REACTIVE ACUTE HEPATITIS [id number] 00:00:00* Test Item Value Reference Range Interpretation Comme nts HEPATITIS A IgM (test code = 66053) NON-REACTIVE HEPATITIS B CORE IgM (test c ode = 4644) NON-REACTIVE HEPATITIS B SURF AG (test co de = 2739) NON-REACTIVE HEPATITIS C ANTIBODY (test c ode = 4675) NON-REACTIVE INTERPRETATION HEPATITIS A: (test code = 2552) (NOTE) INTERPRETATION HEPATITIS B: (test code = 95660) (NOTE) INTERPRETATION HEPATITIS C: (test code = 40331) (NOTE) GC, AMPLIFIED, [id number] 00:00:00* Test Item Value Reference Range Interpretation Comme nts GONORRHEA, NAAT (test code = 08170) NEGATIVE CHLAMYDIA, AMPLIFIED, [id number] 00:00:00* Test Item Value Reference Range Interpretation Comme nts CHLAMYDIA, NAAT (test code = 06771) POSITIVE HIV AB/AG COMBO RFLX [id number] 00:00:00* Test Item Value Reference Range Interpretation Comme nts HIV 1/2 4TH GEN, RFLX CONF ( test code = 3514) NON-REACTIVE ACUTE HEPATITIS [id number] 00:00:00* Test Item Value Reference Range Interpretation Comme nts HEPATITIS A IgM (test code = 67735) NON-REACTIVE HEPATITIS B CORE IgM (test c ode = 4644) NON-REACTIVE HEPATITIS B SURF AG (test co de = 2739) NON-REACTIVE HEPATITIS C ANTIBODY (test c ode = 4675) NON-REACTIVE INTERPRETATION HEPATITIS A: (test code = 2552) (NOTE) INTERPRETATION HEPATITIS B: (test code = 84261) (NOTE) INTERPRETATION HEPATITIS C: (test code = 38701) (NOTE) HIV AB/AG COMBO RFLX [id number] 00:00:00* Test Item Value Reference Range Interpretation Comme nts HIV 1/2 4TH GEN, RFLX CONF ( test code = 3514) NON-REACTIVE GC, AMPLIFIED, [id number] 00:00:00* Test Item Value Reference Range Interpretation Comme nts GONORRHEA, NAAT (test code = 26986) NEGATIVE ACUTE HEPATITIS [id number] 00:00:00* Test Item Value Reference Range Interpretation Comme nts HEPATITIS A IgM (test code = 14818) NON-REACTIVE HEPATITIS B CORE IgM (test c ode = 4644) NON-REACTIVE HEPATITIS B SURF AG (test co de = 2739) NON-REACTIVE HEPATITIS C ANTIBODY (test c ode = 4675) NON-REACTIVE INTERPRETATION HEPATITIS A: (test code = 2552) (NOTE) INTERPRETATION HEPATITIS B: (test code = 16530) (NOTE) INTERPRETATION HEPATITIS C: (test code = 73397) (NOTE) GC, AMPLIFIED, [id number] 00:00:00* Test Item Value Reference Range Interpretation Comme nts GONORRHEA, NAAT (test code = 40790) NEGATIVE CHLAMYDIA, AMPLIFIED, [id number] 00:00:00* Test Item Value Reference Range Interpretation Comme nts CHLAMYDIA, NAAT (test code = 44607) POSITIVE CHLAMYDIA, AMPLIFIED, [id number] 00:00:00* Test Item Value Reference Range Interpretation Comme nts CHLAMYDIA, NAAT (test code = 90933) POSITIVE erythrocyte (RBC) [id number] 15:42:00* Test Item Value Reference Range Interpretation Comme nts erythrocyte (RBC) count (ruslan t code = 67) 4.30 X10E6/UL 3.77-5.28 Formerly [facility], 1928–1983leukocyte count, [id number] 15:42:00* Test Item Value Reference Range Interpretation Comme nts leukocyte count, blood (test code = 68) 9.7 X10E3/UL 3.4-10.8 [facility]ly [facility], 1928–1983hepatitis B surface [id number] 15:42:00* Test Item Value Reference Range Interpretation Comme nts hepatitis B surface antigen (test code = 79) Negative Negative [facility]ly [facility], 1928–1983Rh epdievjr4007-19-40 15:42:00* Test Item Value Reference Range Interpretation Comme nts Rh antibody (test code = 256) Negative Negative [facility], 1928–1983blood glucose, 1 hour after 50 gm oral [id number] 15:42:00* Test Item Value Reference Range Interpretation Comme nts blood glucose, 1 hour after 50 gm oral glucose (test code = 1039) 111 mg/dL 65-139 [facility]ly [facility], 1928–1983HIV-CMIA (Chemiluminescent Microparticle Immuno Assay) 2019-10-14 15:42:00* Test Item Value Reference Range Interpretation Comme nts HIV-CMIA (Chemiluminescent Microparticle Immuno Assay) (test code = 159222) Non Reactive Non Reactive [facility], 1928–1983rapid plasma reagin antibody, [id number] 15:42:00* Test Item Value Reference Range Interpretation Comme nts rapid plasma reagin antibody , serum (test code = 308) Non Reactive Non Reactive [facility], 1928–1983rubella antibody, serum, [id number] 15:42:00* Test Item Value Reference Range Interpretation Comme nts rubella antibody, serum, IgG (test code = 81) 1.33 Immune >0.99 [facility]ly [facility], 1928–1983Rh [id number] 15:42:00* Test Item Value Reference Range Interpretation Comme nts Rh antigen (test code = 255) Positive [facility]ly [facility], 1928–1983ABO blood [id number] 15:42:00* Test Item Value Reference Range Interpretation Comme nts ABO blood group (test code = 116) A [facility]ly [facility], 1928–1983Neisseria gonorrhoeae DNA [id number] 15:42:00* Test Item Value Reference Range Interpretation Comme nts Neisseria gonorrhoeae DNA pr obe (test code = 54968-8) Negative Negative [facility], 1928–1983chlamydia DNA [id number] 15:42:00* Test Item Value Reference Range Interpretation Comme nts chlamydia DNA probe (test co de = 12573-0) Negative Negative [facility], 1928–1983immature granulocytes, percentage of total cells, blood 2019-10-14 15:42:00* Test Item Value Reference Range Interpretation Comme nts immature granulocytes, perce ntage of total cells, blood (test code = 728081) 0 % [facility], 1928–1983basophil count, lcatmimh6641-67-93 15:42:00* Test Item Value Reference Range Interpretation Comme nts basophil count, absolute (te st code = 72819) 0.0 x10E3/uL 0.0-0.3 [facility] HealthEosin[facility] Absolute Cvqzy6945-67-01 15:42:00* Test Item Value Reference Range Interpretation Comme nts Eosinophil Absolute Count (t est code = 540523) 0.0 X10E3/UL 0.0-0.4 [facility] Healthmonocyte count, blood, kpccxnfar7884-15-49 15:42:00* Test Item Value Reference Range Interpretation Comme nts monocyte count, blood, autom ated (test code = 3076) 0.8 X10E3/UL 0.1-0.9 [facility] Healthlymphocyte count, blood, [id number] 15:42:00* Test Item Value Reference Range Interpretation Comme nts lymphocyte count, blood, automated (test code = 3074) 1.2 X10E3/UL 0.7-3.1 [facility] HealthAbsolute Zdqtpkdvpts1426-25-63 15:42:00* Test Item Value Reference Range Interpretation Comme nts Absolute Neutrophils (test c ode = 08480) 7.7 X10E3/UL 1.4-7.0 H [facility] Healthbasophils as percent of blood mzracqtygj4273-02-86 15:42:00* Test Item Value Reference Range Interpretation Comme nts basophils as percent of bloo d leukocytes (test code = 2426) 0 % [facility] Healtheosinophils as percent of blood ghhawcvknm5341-60-70 15:42:00* Test Item Value Reference Range Interpretation Comme nts eosinophils as percent of bl ood leukocytes (test code = 4170) 0 % [facility] Healthmonocytes as percent of blood oxlurpfmrt5442-88-69 15:42:00* Test Item Value Reference Range Interpretation Comme nts monocytes as percent of bloo d leukocytes (test code = 2421) 8 % [facility] Healthlymphocytes as percent of blood deqczfdjbw0571-54-59 15:42:00* Test Item Value Reference Range Interpretation Comme nts lymphocytes as percent of bl ood leukocytes (test code = 317) 12 % [facility] Healthneutrophils as percent of blood zblgodqcjs3500-94-33 15:42:00* Test Item Value Reference Range Interpretation Comme nts neutrophils as percent of bl ood leukocytes (test code = 316) 80 % [facility], 1928–1983platelet oxevy5748-32-13 15:42:00* Test Item Value Reference Range Interpretation Comme nts platelet count (test code = 66) 422 X10E3/UL 150-450 [facility], 1928–1983red blood cell distribution [id number] 15:42:00* Test Item Value Reference Range Interpretation Comme nts red blood cell distribution width (test code = 1030) 14.1 % 11.7-15.4 [facility] corpuscular hemoglobin concentration, [id number] 15:42:00* Test Item Value Reference Range Interpretation Comme nts mean corpuscular hemoglobin concentration, RBC (test code = 1029) 32.3 G/DL 31.5-35.7 [facility] corpuscular hemoglobin, [id number] 15:42:00* Test Item Value Reference Range Interpretation Comme nts mean corpuscular hemoglobin, RBC (test code = 1031) 24.2 pg 26.6-33.0 L [facility] corpuscular volume, [id number] 15:42:00* Test Item Value Reference Range Interpretation Comme nts mean corpuscular volume, RBC (test code = 315) 75 fL 79-97 L [facility], 1928–1983hematocrit, qakgw9688-79-01 15:42:00* Test Item Value Reference Range Interpretation Comme nts hematocrit, blood (test code = 64) 32.2 % 34.0-46.6 L [facility], 1928–1983hemoglobin, [id number] 15:42:00* Test Item Value Reference Range Interpretation Comme nts hemoglobin, blood (test code = 65) 10.4 g/dL 11.1-15.9 L [facility], 1928–1983urine nfyixkm6958-98-23 15:14:00* Test Item Value Reference Range Interpretation Comme nts urine culture (test code = 33072) No growth [facility], 1928–1983Neisseria gonorrhoeae DNA [id number] 15:14:00* Test Item Value Reference Range Interpretation Comme nts Neisseria gonorrhoeae DNA pr obe (test code = 33404-8) Negative Negative [facility], 1928–1983chlamydia DNA [id number] 15:14:00* Test Item Value Reference Range Interpretation Comme nts chlamydia DNA probe (test co de = 84071-1) Negative Negative [facility], 1928–1983Vaginal Group B Strep by Real-Time [id number] 16:28:00 * Test Item Value Reference Range Interpretation Comme nts Vaginal Group B Strep by Kelsea l-Time PCR (test code = 382238) Negative Negative [facility], 1928–1983urine dwrmrcl0827-22-94 16:27:00* Test Item Value Reference Range Interpretation Comme nts urine culture (test code = 53811) MUG [facility], 1928–1983protein, urine, semiquantitative (dipstick)2019-10-07 16:27:00* Test Item Value Reference Range Interpretation Comme nts protein, urine, semiquantita tive (dipstick) (test code = 1753-3) 33.6 [facility], 1928–1983creatinine, random, [id number] 16:27:00* Test Item Value Reference Range Interpretation Comme nts creatinine, random, urine (t est code = 5167) 121.8 mg/dL [facility], 1928–1983alanine aminotransferase (SGPT), [id number] 15:59:00 * Test Item Value Reference Range Interpretation Comme nts alanine aminotransferase (SG PT), serum (test code = 40) 13 1/L 0-24 [facility], 1928–1983aspartate aminotransferase (SGOT), rjumu7966-69-03 15:59:00* Test Item Value Reference Range Interpretation Comme nts aspartate aminotransferase ( SGOT), serum (test code = 39) 16 1/L 0-40 [facility], 1928–1983HIV-CMIA (Chemiluminescent Microparticle Immuno Assay) 2019-10-07 15:59:00* Test Item Value Reference Range Interpretation Comme nts HIV-CMIA (Chemiluminescent Microparticle Immuno Assay) (test code = 341028) Non Reactive Non Reactive [facility], 1928–1983rapid plasma reagin antibody, [id number] 15:59:00* Test Item Value Reference Range Interpretation Comme nts rapid plasma reagin antibody , serum (test code = 308) Non Reactive Non Reactive [facility], 1928–1983immature granulocytes, percentage of total cells, blood 2019-10-07 15:59:00* Test Item Value Reference Range Interpretation Comme nts immature granulocytes, perce ntage of total cells, blood (test code = 547818) 3 % [facility] Healthbasophil count, hhbfevky6053-11-47 15:59:00* Test Item Value Reference Range Interpretation Comme nts basophil count, absolute (te st code = 98695) 0.0 x10E3/uL 0.0-0.3 [facility] HealthEosinophil Absolute Bherr2712-04-20 15:59:00* Test Item Value Reference Range Interpretation Comme nts Eosinophil Absolute Count (t est code = 145102) 0.1 X10E3/UL 0.0-0.4 [facility] Healthmonocyte count, blood, lthxmoqdk3743-29-66 15:59:00* Test Item Value Reference Range Interpretation Comme nts monocyte count, blood, autom ated (test code = 3076) 1.2 X10E3/UL 0.1-0.9 H [facility] Healthlymphocyte count, blood, gelpdpmhk6044-21-99 15:59:00* Test Item Value Reference Range Interpretation Comme nts lymphocyte count, blood, automated (test code = 3074) 1.6 X10E3/UL 0.7-3.1 [facility] HealthAbsolute Rbzngwhghyp8077-70-97 15:59:00* Test Item Value Reference Range Interpretation Comme nts Absolute Neutrophils (test c ode = 56383) 9.4 X10E3/UL 1.4-7.0 H [facility] Healthbasophils as percent of blood xplpwsceob5185-19-20 15:59:00* Test Item Value Reference Range Interpretation Comme nts basophils as percent of bloo d leukocytes (test code = 2426) 0 % [facility] Healtheosinophils as percent of blood kekhjoktiu0460-55-50 15:59:00* Test Item Value Reference Range Interpretation Comme nts eosinophils as percent of bl ood leukocytes (test code = 4170) 1 % [facility] Healthmonocytes as percent of blood gksaqxzizg4515-56-74 15:59:00* Test Item Value Reference Range Interpretation Comme nts monocytes as percent of bloo d leukocytes (test code = 2421) 10 % [facility] Healthlymphocytes as percent of blood gkgzqxdhgj9242-89-71 15:59:00* Test Item Value Reference Range Interpretation Comme nts lymphocytes as percent of bl ood leukocytes (test code = 317) 13 % [facility], 1928–1983neutrophils as percent of blood ygmfkccglr0037-11-64 15:59:00* Test Item Value Reference Range Interpretation Comme nts neutrophils as percent of bl ood leukocytes (test code = 316) 73 % [facility], 1928–1983platelet uqfsw4071-39-70 15:59:00* Test Item Value Reference Range Interpretation Comme [facility] platelet count (test code = 66) 417 X10E3/UL 150-450 [facility], 1928–1983red blood cell distribution [id number] 15:59:00* Test Item Value Reference Range Interpretation Comme [facility] red blood cell distribution width (test code = 1030) 14.2 % 11.7-15.4 [facility] corpuscular hemoglobin concentration, [id number] 15:59:00* Test Item Value Reference Range Interpretation Comme [facility] mean corpuscular hemoglobin concentration, RBC (test code = 1029) 31.0 G/DL 31.5-35.7 L [facility] corpuscular hemoglobin, [id number] 15:59:00* Test Item Value Reference Range Interpretation Comme [facility] mean corpuscular hemoglobin, RBC (test code = 1031) 24.4 pg 26.6-33.0 L [facility] corpuscular volume, [id number] 15:59:00* Test Item Value Reference Range Interpretation Comme [facility] mean corpuscular volume, RBC (test code = 315) 79 fL 79-97 [facility], 1928–1983hematocrit, [id number] 15:59:00* Test Item Value Reference Range Interpretation Comme [facility] hematocrit, blood (test code = 64) 34.8 % 34.0-46.6 [facility], 1928–1983hemoglobin, cdpei3539-12-16 15:59:00* Test Item Value Reference Range Interpretation Comme [facility] hemoglobin, blood (test code = 65) 10.8 g/dL 11.1-15.9 L [facility], 1928–1983erythrocyte (RBC) [id number] 15:59:00* Test Item Value Reference Range Interpretation Comme [facility] erythrocyte (RBC) count (ruslan t code = 67) 4.42 X10E6/UL 3.77-5.28 [facility], 1928–1983leukocyte count, sdgmo6119-04-05 15:59:00* Test Item Value Reference Range Interpretation Comme nts leukocyte count, blood (test code = 68) 12.6 X10E3/UL 3.4-10.8 H [facility], 1928–1983Herpes Simplex Virus Yundnpk1707-18-16 14:07:37* Test Item Value Reference Range Interpretation Comme nts Herpes Simplex Virus Genital (test code = 4258) no [facility], 1928–1983POCT URINALYSIS W/O SPECIFIC [id number] 23:11:00* Test Item Value Reference Range Interpretation [...] ve Lab Interpretation (test cod e = 83012-6) Normal [facility]<14 WEEKS US [id number] 17:45:03Addendum by Guerrero Whitaker MD on 04/16/2019 12:47 PMLimited USG for dating and viability:?Single live IUP measured 10 5/7 weeks.?Will date by this USG unless clinically indicated otherwise Casie Whitaker MD?04/16/2019?12:44 PM Limited USG for dating and viability:?Single live IUP sqvxgabj07 5/7 weeks.?Will date by this USG unless clinically indicated otherwise Guerrero Whitaker MD?04/16/2019?12:44 PMUnLongview [facility] Medical CenterCBC WITH DIFFERENTIAL 2019-04-14 21:44:00* Test [...] 34.1 g/dL 32-36 RDW-SD (test code = 95856-1) 37.2 fL 38.5-49 L RDW-CV (test code = 788-0) 12.5 % 11.5-14 PLT (test code = 777-3) See_Comment H [Automated messa ge] The system which generated this result transmitted reference range: 135 - 361 10*3/?L. The reference range was not used to interpret this result as normal/abnormal. MPV (test code = 44197-1) 8.8 fL 9.4-13.3 L NRBC/100 WBC (test code = 1672546604) See_Comment [Automated [employer] ssage] The system which generated this result transmitted reference range: 0.0 - 10.0 /100 WBCs. The reference range was not used to interpret this result as normal/abnormal. NRBC x10^3 (test code = 4761699312) <0.01 See_Comment [Automated messa ge] The system which generated this result transmitted reference range: 10*3/?L. The reference range was not used to interpret this result as normal/abnormal. GRAN MAT (NEUT) % (test code = 770-8) 71.3 % IMM GRAN % (test code = 7482923477) 0.40 % LYMPH % (test code = 736-9) 19.6 % MONO % (test code = 5905-5) 7.8 % EOS % (test code = 713-8) 0.5 % BASO % (test code = 706-2) 0.4 % GRAN MAT x10^3(ANC) (test code = 3445557864) 5.21 10*3/uL 1.5-10.3 IMM GRAN x10^3 (test code = 1151529749) 0.03 10*3/uL 0-0.06 LYMPH x10^3 (test code = 731-0) 1.43 10*3/uL 0.7-7.4 MONO x10^3 (test code = 742-7) 0.57 10*3/uL 0-0.5 H EOS x10^3 (test code = 711-2) 0.04 10*3/uL 0-0.4 BASO x10^3 (test code = 704-7) 0.03 10*3/uL 0-0.1 Lab Interpretation (test code = 17867-5) Abnormal [facility]<14 WEEKS US [id number] 23:55:04Limited USG for dating due to irregular periods:?transabdominal USG showed intrauterine gestationalsac with yolk sac and no pole Guerrero Whitaker MD?03/20/2019?6:54 PMUnLongview Regional Medical CenterGALV ONLY - VAGINAL PATHOGENS BY DNA [id number] 17:42:00* Test Item Value Reference Range Interpretation Comme nts Trichomonas vaginalis (test code = 4568811727) Negative Negative Gardnerella vaginalis (test code = 3381760356) Negative Negative Susan species (test code = 1104181567) Negative Negative Lab Interpretation (test cod e = 48554-0) Normal [facility] HospitalGC & CHLAMYDIA AMPLIFIED [id number] 17:25:00* Test Item Value Reference Range Interpretation Comme nts Lab Interpretation (test cod e = 25763-6) Normal [facility] - DRUG SCREEN [id number] 02:43:00* Test Item Value Reference Range Interpretation Comme nts BENZO U (test code = 6632827633) Negative Negative ELVIS U (test code = 1402692529) Negative Negative AMPHET (test code = 5573057075) Negative Negative THC (test code = 2266127042) Negative Negative METHADONE (test code = 1605148437) Negative Negative Meth U (test code = 0083391449) Negative Negative OPIATES (test code = 5366035729) Negative Negative Cocaine Metabolite (test code = 2284897175) Negative Negative PROPOXY (test code = 2390245849) Negative Negative Tric U (test code = 1070304133) Negative Negative PCP (test code = 3590054841) Negative Negative OXYCOD (test code = 1718630366) Negative Negative ARNULFO (test code = ARNULFO) [...] legal testing). Lab Interpretation (test code = 76444-2) Normal [facility] BETA HCG [id number] 17:07:00* Test Item Value Reference Range Interpretation Comme [facility] BETA HCG (test code = 8075704684) See_Comment [Automated [employer]] The system which generated this result transmitted reference range: Non- female and male patients: <5 mIU/mL. The reference range was not used to interpret this result as normal/abnormal. ARNULFO (test code = ARNULFO) Gestational Age?Range (mIU/mL)1-10?Weeks?4 [id number] Weeks?[id number] -22 Weeks?7480-38331071- 40 Weeks?153-227573Gnc tin has been reported to cause a negative bias, interpret results relative to patient's use of biotin. [facility] URINALYSIS W/O SPECIFIC [id number] 14:40:00* Test Item Value Reference Range Interpretation [...] Negati ve [facility] [id number] 14:30:00* Test Item Value Reference Range Interpretation Comme nts POCT PREG (test code = 1605) Positive On board controls acceptable with C Line (test code = 3574) Yes POCT PREG LOT # (test code = 3575) POCT PREG TEST DATE ( test code = 3576) [facility]IP[facility] [id number] 00:00:00* Test Item Value Reference Range Interpretation Comme nts CHOLESTEROL (test code = 2210) 151 MG/DL TRIGLYCERIDES (test code = 2232) 101 MG/DL HDL CHOLESTEROL (test code = 2220) 52 MG/DL CALC LDL CHOL (test code = 2237) 79 MG/DL RISK RATIO LDL/HDL (test cod e = 2238) 1.52 RATIO BASIC METABOLIC [id number] 00:00:00* Test Item Value Reference Range Interpretation Comme nts GLUCOSE (test code = 2217) 96 MG/DL BUN (test code = 2208) 9 MG/DL CREATININE (test code = 2214) 0.45 MG/DL eGFR AMER. (test code = 55117) (NOTE) ML/MIN/1.73 eGFR NON- AMER. (test code = 14749) NO CALC ML/MIN/1.73 SODIUM (test code = 2231) 142 MEQ/L POTASSIUM (test code = 2228) 4.1 MEQ/L CHLORIDE (test code = 2215) 103 MEQ/L CARBON DIOXIDE (test code = 2206) 26 MEQ/L CALCIUM (test code = 2209) 8.6 MG/DL LIPID [id number] 00:00:00* Test Item Value Reference Range Interpretation Comme nts CHOLESTEROL (test code = 2210) 151 MG/DL TRIGLYCERIDES (test code = 2232) 101 MG/DL HDL CHOLESTEROL (test code = 2220) 52 MG/DL CALC LDL CHOL (test code = 2237) 79 MG/DL RISK RATIO LDL/HDL (test cod e = 2238) 1.52 RATIO BASIC METABOLIC [id number] 00:00:00* Test Item Value Reference Range Interpretation Comme nts GLUCOSE (test code = 2217) 96 MG/DL BUN (test code = 2208) 9 MG/DL CREATININE (test code = 2214) 0.45 MG/DL eGFR AMER. (test code = 05380) (NOTE) ML/MIN/1.73 eGFR NON- AMER. (test code = 63014) NO CALC ML/MIN/1.73 SODIUM (test code = 2231) 142 MEQ/L POTASSIUM (test code = 2228) 4.1 MEQ/L CHLORIDE (test code = 2215) 103 MEQ/L CARBON DIOXIDE (test code = 2206) 26 MEQ/L CALCIUM (test code = 2209) 8.6 MG/DL LIPID [id number] 00:00:00* Test Item Value Reference Range Interpretation Comme nts CHOLESTEROL (test code = 2210) 151 MG/DL TRIGLYCERIDES (test code = 2232) 101 MG/DL HDL CHOLESTEROL (test code = 2220) 52 MG/DL CALC LDL CHOL (test code = 2237) 79 MG/DL RISK RATIO LDL/HDL (test cod e = 2238) 1.52 RATIO BASIC METABOLIC [id number] 00:00:00* Test Item Value Reference Range Interpretation Comme nts GLUCOSE (test code = 2217) 96 MG/DL BUN (test code = 2208) 9 MG/DL CREATININE (test code = 2214) 0.45 MG/DL eGFR AMER. (test code = 51444) (NOTE) ML/MIN/1.73 eGFR NON- AMER. (test code = 81579) NO CALC ML/MIN/1.73 SODIUM (test code = 2231) 142 MEQ/L POTASSIUM (test code = 2228) 4.1 MEQ/L CHLORIDE (test code = 2215) 103 MEQ/L CARBON DIOXIDE (test code = 2206) 26 MEQ/L CALCIUM (test code = 2209) 8.6 MG/DL LIPID [id number] 00:00:00* Test Item Value Reference Range Interpretation Comme nts CHOLESTEROL (test code = 2210) 151 MG/DL TRIGLYCERIDES (test code = 2232) 101 MG/DL HDL CHOLESTEROL (test code = 2220) 52 MG/DL CALC LDL CHOL (test code = 2237) 79 MG/DL RISK RATIO LDL/HDL (test cod e = 2238) 1.52 RATIO BASIC METABOLIC [id number] 00:00:00* Test Item Value Reference Range Interpretation Comme nts GLUCOSE (test code = 2217) 96 MG/DL BUN (test code = 2208) 9 MG/DL CREATININE (test code = 2214) 0.45 MG/DL eGFR AMER. (test code = 29670) (NOTE) ML/MIN/1.73 eGFR NON- AMER. (test code = 37720) NO CALC ML/MIN/1.73 SODIUM (test code = 2231) 142 MEQ/L POTASSIUM (test code = 2228) 4.1 MEQ/L CHLORIDE (test code = 2215) 103 MEQ/L CARBON DIOXIDE (test code = 2206) 26 MEQ/L CALCIUM (test code = 2209) 8.6 MG/DL LIPID [id number] 00:00:00* Test Item Value Reference Range Interpretation Comme nts CHOLESTEROL (test code = 2210) 151 MG/DL TRIGLYCERIDES (test code = 2232) 101 MG/DL HDL CHOLESTEROL (test code = 2220) 52 MG/DL CALC LDL CHOL (test code = 2237) 79 MG/DL RISK RATIO LDL/HDL (test cod e = 2238) 1.52 RATIO BASIC METABOLIC [id number] 00:00:00* Test Item Value Reference Range Interpretation Comme nts GLUCOSE (test code = 2217) 96 MG/DL BUN (test code = 2208) 9 MG/DL CREATININE (test code = 2214) 0.45 MG/DL eGFR AMER. (test code = 27973) (NOTE) ML/MIN/1.73 eGFR NON- AMER. (test code = 66640) NO CALC ML/MIN/1.73 SODIUM (test code = 2231) 142 MEQ/L POTASSIUM (test code = 2228) 4.1 MEQ/L CHLORIDE (test code = 2215) 103 MEQ/L CARBON DIOXIDE (test code = 2206) 26 MEQ/L CALCIUM (test code = 2209) 8.6 MG/DL LIPID [id number] 00:00:00* Test Item Value Reference Range Interpretation Comme nts CHOLESTEROL (test code = 2210) 151 MG/DL TRIGLYCERIDES (test code = 2232) 101 MG/DL HDL CHOLESTEROL (test code = 2220) 52 MG/DL CALC LDL CHOL (test code = 2237) 79 MG/DL RISK RATIO LDL/HDL (test cod e = 2238) 1.52 RATIO BASIC METABOLIC [id number] 00:00:00* Test Item Value Reference Range Interpretation Comme nts GLUCOSE (test code = 2217) 96 MG/DL BUN (test code = 2208) 9 MG/DL CREATININE (test code = 2214) 0.45 MG/DL eGFR AMER. (test code = 03142) (NOTE) ML/MIN/1.73 eGFR NON- AMER. (test code = 53289) NO CALC ML/MIN/1.73 SODIUM (test code = 2231) 142 MEQ/L POTASSIUM (test code = 2228) 4.1 MEQ/L CHLORIDE (test code = 2215) 103 MEQ/L CARBON DIOXIDE (test code = 2206) 26 MEQ/L CALCIUM (test code = 2209) 8.6 MG/DL LIPID [id number] 00:00:00* Test Item Value Reference Range Interpretation Comme nts CHOLESTEROL (test code = 2210) 151 MG/DL TRIGLYCERIDES (test code = 2232) 101 MG/DL HDL CHOLESTEROL (test code = 2220) 52 MG/DL CALC LDL CHOL (test code = 2237) 79 MG/DL RISK RATIO LDL/HDL (test cod e = 2238) 1.52 RATIO BASIC METABOLIC [id number] 00:00:00* Test Item Value Reference Range Interpretation Comme nts GLUCOSE (test code = 2217) 96 MG/DL BUN (test code = 2208) 9 MG/DL CREATININE (test code = 2214) 0.45 MG/DL eGFR AMER. (test code = 05461) (NOTE) ML/MIN/1.73 eGFR NON- AMER. (test code = 95937) NO CALC ML/MIN/1.73 SODIUM (test code = 2231) 142 MEQ/L POTASSIUM (test code = 2228) 4.1 MEQ/L CHLORIDE (test code = 2215) 103 MEQ/L CARBON DIOXIDE (test code = 2206) 26 MEQ/L CALCIUM (test code = 2209) 8.6 MG/DL LIPID [id number] 00:00:00* Test Item Value Reference Range Interpretation Comme nts CHOLESTEROL (test code = 2210) 151 MG/DL TRIGLYCERIDES (test code = 2232) 101 MG/DL HDL CHOLESTEROL (test code = 2220) 52 MG/DL CALC LDL CHOL (test code = 2237) 79 MG/DL RISK RATIO LDL/HDL (test cod e = 2238) 1.52 RATIO BASIC METABOLIC [id number] 00:00:00* Test Item Value Reference Range Interpretation Comme nts GLUCOSE (test code = 2217) 96 MG/DL BUN (test code = 2208) 9 MG/DL CREATININE (test code = 2214) 0.45 MG/DL eGFR AMER. (test code = 37270) (NOTE) ML/MIN/1.73 eGFR NON- AMER. (test code = 96274) NO CALC ML/MIN/1.73 SODIUM (test code = 2231) 142 MEQ/L POTASSIUM (test code = 2228) 4.1 MEQ/L CHLORIDE (test code = 2215) 103 MEQ/L CARBON DIOXIDE (test code = 2206) 26 MEQ/L CALCIUM (test code = 2209) 8.6 MG/DL Consult Notes Date/Time Note Provider Source 2024-07-23 17:40:08 Associated Order(s): CONSULT SSIS ARCHITECT-ADULT Reason for consult - please give recommendation or opinion on: depression, please provide with available resources SW received consult regarding patient having depression. However, patient scored a 6 on PPD assessment. No SW consult initiated. Cristina Cee LMSW [facility] Chief Client Officer [phone] [email or web address] Available Fri - Sun T MECHANIC Cristina Cee LMSW [facility] - Health History and Physical Notes Date/Time Note Provider Source 2024-07-21 21:07:00 TRIAGE/L&D HISTORY & PHYSICAL IDENTIFYING DATA Altagracia Yu is 19 year old, /White, 39w0d, female with JONAS 07/28/2024, by Last Menstrual Period. : 2005 Primary Care Physician: PATIENT DOES NOT HAVE A PCP CHIEF COMPLAINT sIOL HISTORY OF PRESENT ILLNESS Altagracia Yu is a 19 year old at 39w0d who presents for sIOL. Patient denies vaginal bleeding, denies leakage of fluid, denies contractions. Patient denies headache, denies nausea/vomiting, denies RUQ pain, denies visual abnormalities. Endorses normal movement. PAST OBSTETRIC HISTORY OB History Para Term AB Living 2 1 1 1 SAB IAB Ectopic Multiple Live Births 1 # Outcome Date GA Lbr Mickey/2nd Weight Sex Type Anes PTL Lv 2 Current 1 Term 11/07/19 40w0d 3882 g M NORMAL SPONT EPI N DANILO Complications: Other (See Comments), Avulsion of umbilical cord PAST MEDICAL HISTORY Problem list: Patient Active Problem List Diagnosis Date Noted 39 weeks gestation of 07/21/2024 Positive GBS test 07/12/2024 Back pain affecting in third trimester 06/24/2024 Morbid obesity with body mass index of 40.0-49.9 06/19/2024 Chlamydia infection affecting 06/03/2024 Anemia of mother in , antepartum 06/02/2024 Poor historian 06/02/2024 Flu vaccine refused 06/02/2024 Urinary tract infection in mother during third trimester of 06/02/2024 Rubella non-immune status, antepartum 06/02/2024 Maternal varicella, non-immune 06/02/2024 History of anxiety and depression 06/01/2024 Obesity affecting in third trimester 06/01/2024 Late care 06/01/2024 Current every day vaping 06/01/2024 Operations: Past Surgical History: Procedure Laterality Date ADENOIDECTOMY 2008 TONSILLECTOMY 2007 Past Medical History: Diagnosis Date Anemia Anxiety was taking meds but stopped during Depression was taking meds but stopped during CURRENT HEALTH STATUS Medications: Current Facility-Administered Medications Medication Dose Route Frequency Last Rate Last Admin lactated ringers IV infusion 1,000 mL 1,000 mL IV Infusion CONTINUOUS 75 mL/hr at 07/22/24 0013 1,000 mL at 07/22/24 0013 ceFAZolin (ANCEF) 1,000 mg in water for injection, sterile 10 mL IV push 1,000 mg Intravenous Q8H ABX lactated ringers IV infusion 250 mL 250 mL IV Infusion PRN - SEE INSTRUCTIONS lidocaine 1% (PF) (XYLOCAINE) injection 0.3 mL 0.3 mL Infiltration PRN - SEE INSTRUCTIONS lidocaine 1% (XYLOCAINE) 10 mg/mL (1 %) injection 50 mL 50 mL Infiltration PRN - SEE INSTRUCTIONS oxytocin (PITOCIN) 30 units in NS 500 mL IV infusion 2-40 alma rosa-units/min IV Infusion TITRATE 2 mL/hr at 07/22/24 0015 2 alma rosa-units/min at 07/22/24 0015 sodium citrate-citric acid (BICITRA) 500-334 mg/5 mL solution 30 mL 30 mL Oral PRE-PROCEDURE ONCE Allergies and drug reactions: Aspirin and Penicillin HOME MEDICATIONS Medications Prior to Admission Medication Sig Dispense Refill Last Dose metroNIDAZOLE 500 mg tablet Take 1 tablet by mouth every 12 (twelve) hours. 14 tablet 0 not taking proMETHazine 25 mg tablet Take 1 tablet by mouth every 4 (four) hours as needed for Nausea and Vomiting (N/V). 30 tablet 1 not taking Iron Fum & P-FA-Vit B & C No.9 (INTEGRA PLUS) 125 mg iron- 1 mg Cap Take 1 capsule by mouth in the morning. 30 capsule 6 06/03/2024 PNV 67-iron ps-folate no.1-dha (VITAFOL ULTRA) 29 mg iron- 1 mg-200 mg Cap Take 1 TAB-CAP/M2 by mouth daily. 30 capsule 9 06/03/2024 SOCIAL HISTORY Tobacco History: Social History Tobacco Use Smoking Status Never Smokeless Tobacco Former Types: Chew Quit date: 03/07/2019 Tobacco Comments Vapes Drug History: Social History Substance and Sexual Activity Drug Use Never Alcohol History: Social History Substance and Sexual Activity Alcohol Use Never FAMILY HISTORY Family History Problem Relation Age of Onset Neurological Mother Asthma Mother Arthritis Mother Diabetes Mother Psychiatry Mother Cancer Mother uterus or ovaries Depression Father Psychiatry Father Heart Father Hypertension Father Depression Sister Bone Cancer Maternal Grandmother bone marrow cancer Depression Paternal Grandfather REVIEW OF SYSTEMS General: negative Skin: negative HEENT: negative Neck: negative HEME: negative Resp: negative Cardio: negative GI: negative : negative Endo: negative Neuro: negative Back: negative MAURY: negative Psych: negative VITAL SIGNS BP: (103-107)/(56-66) Temp: [36.2 ?C (97.2 ?F)] Temp source: Axillary (07/21 2120) Pulse: [89-95] Resp: [18] SpO2: [98 %] Height: -- Weight: -- BMI (calculated): -- PHYSICAL EXAMINATIONS General: patient alert and in no acute distress HEENT: symmetric, negative for masses Lungs: unlabored breathing Breast: deferred Cardiology: peripheral pulses intact and regular Abdomen: soft, non-tender, non-distended, no liver, spleen or abnormal masses palpated and Gravid Extremities: no clubbing, cyanosis, or edema Neuro: patient moving all extremities, no facial droop : SVE- REVIEW OF LABORATORY, PATHOLOGY, AND RADIOLOGY DATA Lab results: Type & Screen Lab Results Component Value Date/Time IABORH A POSITIVE 07/21/2024 11:38 PM IAT Negative 07/21/2024 11:38 PM Serologies Lab Results Component Value Date/Time VZVIGG Equivocal 06/01/2024 02:14 PM RUBG Negative 06/01/2024 02:14 PM SYPIGG Non-reactive 06/01/2024 02:14 PM HBSAG Negative 07/21/2024 11:38 PM HBSAG 0.47 07/21/2024 11:38 PM Chlamydia Lab Results Component Value Date/Time VCAA Negative 06/28/2024 11:49 AM Group B Strep Lab Results Component Value Date/Time CGB Positive (A) 07/09/2024 11:45 AM GTT Lab Results Component Value Date/Time SSOX7IU 89 (L) 06/01/2024 02:14 PM CBC Lab Results Component Value Date/Time HGB 10.7 (L) 07/21/2024 11:38 PM HCT 33.5 (L) 07/21/2024 11:38 PM PLT 470 (H) 07/21/2024 11:38 PM Active Hospital Problems Diagnosis Date Noted 39 weeks gestation of 07/21/2024 Positive GBS test 07/12/2024 Morbid obesity with body mass index of 40.0-49.9 06/19/2024 Anemia of mother in , antepartum 06/02/2024 Current every day vaping 06/01/2024 History of anxiety and depression 06/01/2024 Late care 06/01/2024 Anatomy ultrasound: no openings in [place] and offered other clinics, patient declined. Outside USG showed normal anatomy Resolved Hospital Problems No resolved problems to display. Present on Admission: Anemia of mother in , antepartum Current every day vaping History of anxiety and depression Late care Morbid obesity with body mass index of 40.0-49.9 Positive GBS test 39 weeks gestation of Placenta Accreta Screening Prior ? : No Prior Uterine Surgery?: No Placenta low lying/previa in current ? : (no formal MFM US) Ultrasound suspicion of PASD in current ?: (no formal MFM scan) Screening outcome: A positive screening outcome indicates a history of prior delivery or prior uterine surgery, AND the presence of either a placenta low lying/previa or ultrasound suspicion of PASD in the current . Negative screening. ASSESSMENT AND PLAN Altagracia Yu is a 19 year old at 39w0d by d/u(20) who presents for sIOL. IOL - (-) Vaginal Bleeding, (-) Leakage of Fluid, (-) Contractions, (+) Movement - SVE: 3 / 25 % / -3 Plan: - Admit for IOL. Plan for FB and Pitocin - Epidural Plans: Desires Late entry to care - established care at 33 weeks Chlamydia - positive swab on 06/01 - DENISE negative on 06/19 - denies s/s today Substance use - reports vaping daily with nicotine containing products, currently trying to quit - no other reported substance use GBS Positive - Positive swab on 07/09 - PCN allergy in chart, but pt reports this was from childhood, no reported hospitalizations Plan: ancef intrapartum Antepartum course reviewed - 1 h nl, sero negative, Rnot immune, VZVnot immune, HPV not immune, A positive/IAT negative, GBS positive, Pap NILM (05/2024) - H/H, plt: 10.7 / 33.7, 455 on 07/20/24 - PP control plan: no current plans - [facility] Fetus - Presentation on admission: cephalic - posterior placenta - EFW: 3484 g, 54%tile - FHT reactive and reassuring - no anatomy scan on file D/w Dr. Jamarcus Hwang, MD PhD T MECHANIC Associated attestation - Shawn Maciel MD - 07/22/2024 6:18 AM HOIST MECHANIC Attending addendum: I was L&D faculty on DOS and agree with H&P below. I was immediately available. Shawn Maciel MD [facility] Procedure Notes Date/Time Note Provider Source 2024-07-22 10:52:44 Associated Order(s): Central Neuraxial Block Central Neuraxial Block Date/Time: 07/22/2024 10:04 AM Performed by: Logan Garcia MD Authorized by: Miguel Carreno MD Patient Location: Other Reason for Block: Labor analgesia, OB request, Patient request, Post-op pain management and Surgical anesthesia Staff: Anesthesiologist: Miguel Carreno MD Resident/COLLAR BASTER JUMPBASTING: Logan Garcia MD Performed by: resident/COLLAR BASTER JUMPBASTING Preanesthetic Checklist: patient identified, IV checked, risks and benefits explained, monitors and equipment checked, timeout performed, pre-op evaluation, surgical consent, site marked, ob/surgical consent approval, ob/surgical consent verified and anesthesia consent Procedure: Type of Neuraxial: Epidural Sterility Prep cap, drape, gloves, hand hygiene and mask Sedation Level no sedation Patient Position: sitting Prep: Betadine Monitoring: continuous pulse ox, heart rate / toco and NIBP Location: lumbar (1-5) Lumbar: L4-L5 Approach: midline Technique: catheter and MICHELLE saline Guidance with: landmark technique} Epidural/Spinal Anderson and/or Catheter: Epidural/Spinal Kit: BBraun Needle Type: Tuohy Needle Gauge: 17 G Needle Length: 3.5 in (8.89 cm) Needle Insertion Depth: 9 Catheter Type: multiport Catheter Size: 19 G Catheter at Skin Depth: 14 Number of Attempts: 3 Test Dose: lidocaine 1.5% with epinephrine 1-to-200,000 and negative Dose: 3 cc Catheter Securement Method: clear occlusive dressing, liquid medical adhesive, surgical tape and Tegaderm Assessment: Block Outcome: a full evaluation is pending, patient comfortable and patient tolerated procedure well Procedure Assessment: patient tolerated procedure well with no complications Notes: Patient identified; pre-procedure verification. Patient prepped and draped in standard sterile fashion using betadine x 3 Subcutaneous infiltration with 1% Lidocaine Attempts 1 and 2 by CA1. Attempt 3 by attending 1 level below Ca1's attempt. MICHELLE at 9 cm; catheter secured at 14 cm with mastisol, tegaderm x2 and 3-inch clear tape. Aspiration test negative x 3 Test dose negative Patient tolerated procedure well with no immediate complications Epidural expectations; PCEA explained and fall precautions given. T MECHANIC ANESTHESIOLOGY [facility] 2024-07-22 06:10:58 Altagracia Yu is a 19 year old female 39w1d Frazier insertion: Insertion date and time: 07/22/24 @ 0415 Frazier catheter inserted through cervix in sterile fashion and inflated with 60 cc sterile saline. Frazier bulb firmly in place inside internal os. Catheter taped to patient leg under traction. Patient tolerated procedure well. Please use the table below for: SVE 11/09/-3 CERVIX: Consistency : 1; Position: 0, Station: 0 Score 0 1 2 3 Dilation (cm) 0 cm 1-2 cm 3-4 cm >5 cm Effacement 0 - 30 % 40 - 50 % 60 - 70 % > 80 % Consistency of the cervix Stiff Moderately soft Very soft Position of the cervix Posterior Median Anterior Station -3 -2 -1 to 0 +1, +2 Hien Flores MD 07/22/2024 6:11 AM T MECHANIC OBSTETRICS & GYNECOLOGY [facility]
[2024-08-25] MEDS ORDERED: NA CHLORIDE 0.9% 1,000 ML ONE (19:46)
[2024-08-25 20:06] LABS: Specific Gravity 1.023 (1.005-1.030)
[2024-08-25 20:07] LABS: Specific Gravity 1.023 (1.005-1.030); Urine Bacteria <20 /HPF (<20); Urine Bilirubin NEGATIVE (Negative); Urine Blood 1+ (Negative); Urine Clarity Turbid (Clear); Urine Color Light-Yellow (Yellow); Urine Culture Reflex Order NOT NEEDED; Urine Glucose NEGATIVE (Negative); Urine Ketones NEGATIVE (Negative); Urine Microscopic Reflex YN ORDER UMIC; Urine Mucus Slight /HPF (None Seen); Urine Nitrite NEGATIVE (Negative); Urine Protein NEGATIVE (Negative); Urine Urobilinogen Normal (Normal); Urine WBC <5 /HPF (<5); Urine pH 6.5 (5.0-7.0)
[2024-08-25 20:12] LABS: Absolute Basophils 0.1 K/uL (0-0.5); Absolute Eosinophils 0.1 K/uL (0-0.5); Absolute Lymphocytes (CBC) 2.4 K/uL (0.7-4.9); Absolute Monocytes 0.7 K/uL (0.1-1.3); Absolute Neutrophil 5.6 K/uL (1.8-8.0); Basophils % 0.7 % (0-1.3); Eosinophils % 1.5 % (0-4.4); Hematocrit 38.7 % (36.0-45.0); Hemoglobin 12.3 g/dL (12.0-15.0); Lymphocytes % 27.2 % (15.3-44.8); MCHC 31.8 g/dL (32.0-36.0); MCV 75.6 fL (80-100); MPV 7.3 fL (7.6-11.3); Monocytes % 7.4 % (3.3-12.3); Neutrophils % 63.2 % (41.7-73.7); Nucleated Red Blood Cells % 0.1 % (0-0); Platelets 556 thou/uL (152-406); RBC Red Blood Cell Count 5.12 M/uL (3.86-4.86)
[2024-08-25 20:18] LABS: SARS-CoV-2 Antigen CONTROL BLUE LINE VIS/BG OK; SARS-CoV-2 Antigen Rapid Res Negative (Negative)
[2024-08-25 20:28] LABS: Albumin 3.3 g/dL (3.4-5.0); Albumin/Globulin Ratio 0.9 (1.1-1.8); Anion Gap 9.1 mEq/L (5.0-15.0); Bilirubin Total 0.2 mg/dL (0.2-1.0); Globulin 3.6 g/dL (2.3-3.5); Potassium 4.1 mEq/L (3.5-5.1); Protein, Total 6.9 g/dL (6.4-8.2)
--- NOTE | 2024-08-25 21:08 | EDPHYS ---
Physician Documentation [facility] Name: Altagracia Yu Age: 19 yrs Sex: Female : 2005 Arrival Date: 08/25/2024 Time: 18:37 Bed 8 Private MD: ED Physician Chance Flores HPI: 08/25 22:04 This 19 yrs old Female presents to ER via Ambulatory with complaints of Vomiting, Fever kb - Preg test. 22:04 Patient is a 19-year-old female who presents for nausea, vomiting and fever that kb started yesterday. Denies abdominal pain, vaginal bleeding, discharge. States she is 1 month , LMP 08/07/2024. Patient is concerned that she may be again because of the symptoms. Reports cough this morning. . 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 - Infectious Disease History:: Denies. - Social history:: Smoking status: Reported history of juuling and/or vaping. ROS: 22:05 Constitutional: As per HPI kb Exam: 22:05 Constitutional: This is a well developed, well nourished patient who is awake, alert, kb and in no acute distress. Head/Face: Normocephalic, atraumatic. ENT: Moist Mucous membranes Cardiovascular: Regular rate Respiratory: Respirations even and unlabored. No increased work of breathing. Talking in full sentences Abdomen/GI: Soft, non-tender. No distention Skin: Warm, dry with normal turgor. Normal color. MS/ Extremity: Pulses equal, no cyanosis. Neurovascular intact. Full, normal range of motion. Neuro: Awake and alert, GCS 15, oriented to person, place, time, and situation. Vital Signs: 19:31 Pulse 84; Resp 17; Temp 98.4(O); Pulse Ox 99% on R/A; Weight 90.72 kg; Height 5 ft. 5 tm6 in. ; Pain 5/10; 19:35 BP 110 / 66; MAP 78 mmHg; tm6 20:17 BP 113 / 68; Pulse 85; Resp 17 S; Pulse Ox 100% on R/A; ha1 21:10 BP 117 / 69; Pulse 81; Resp 18 S; Pulse Ox 100% on R/A; ha1 19:31 Body Mass Index 33.28 (90.72 kg, 165.1 cm) tm6 19:31 Pain Scale: Adult tm6 MDM: 18:43 Medical Screening Exam initiated kb 22:06 Differential diagnosis: Nonspecific abd pain, , dehydration, uti. Data kb reviewed: vital signs, nurses notes. Historians other than the Patient: Spouse/Significant Other: significant other. Counseling: I had a detailed discussion with the patient and/or guardian regarding the historical points, exam findings, and any diagnostic results supporting the discharge/admit diagnosis, lab results, the need for outpatient follow up, a family practitioner, to return to the emergency department if symptoms worsen or persist or if there are any questions or concerns that arise at home. 08/25 19:33 Order name: CBC with Diff; Complete Time: 20:16 kb 08/25 19:33 Order name: CMP; Complete Time: 20:32 kb 08/25 19:33 Order name: Lipase; Complete Time: 20:32 kb 08/25 19:33 Order name: Test, Urine; Complete Time: 20:08 kb 08/25 19:33 Order name: Urinalysis w/ reflexes; Complete Time: 20:08 kb 08/25 19:33 Order name: Flu; Complete Time: 20:25 kb 08/25 19:33 Order name: SARS-COV-2 Antigen Rapid; Complete Time: 20:19 kb 08/25 19:33 Order name: IV Saline Lock; Complete Time: 19:45 kb 08/25 19:33 Order name: Labs collected and sent; Complete Time: 19:45 kb Administered Medications: 20:01 Drug: NS 0.9% IV 1000 ml IV at 1 bolus Per protocol; to be given as a bolus over 60 ha1 minutes Route: IV; Rate: 1 bolus; Site: right antecubital; 21:20 Follow up: Response: No adverse reaction; IV Status: Completed infusion; IV Intake: ha1 1000ml Disposition Summary: 08/25/24 21:07 Discharge Ordered Notes: Location: Home kb Condition: Stable kb Diagnosis - Nausea with vomiting, unspecified kb Followup: kb - With: Private Physician - When: 2 - 3 days - Reason: Recheck today's complaints, Continuance of care, Re-evaluation by your physician Followup: kb - With: Emergency Department - When: As needed - Reason: Worsening of condition Discharge Instructions: - Discharge Summary Sheet kb - Nausea and Vomiting, Adult, [id number] kb Forms: - Medication Reconciliation Form kb - Antibiotic Education kb - Prescription Opioid Use kb - Patient Portal Instructions kb - Leadership Thank You Letter kb - Family Work Release km Signatures: Dispatcher [employer] EDMS Sveta Saravia, SPEEDER OPERATOR-C SPEEDER OPERATOR-Yajaira Lowery, RN RN ha1 Jose Prescott RN RN tm6 Corrections: (The following items were deleted from the chart) 19:33 19:33 CBC+H.LAB.BRZ ordered. EDMS EDMS 19:33 19:33 COMPREHENSIVE METABOLIC PANEL+C.LAB.BRZ ordered. EDMS EDMS 19:33 19:33 LIPASE+C.LAB.BRZ ordered. EDMS EDMS 19:33 19:33 Test, Urine+UC.LAB.BRZ ordered. EDMS EDMS 19:33 19:33 Urinalysis+U.LAB.BRZ ordered. EDMS EDMS 19:33 19:33 Influenza Screen (A \T\ B)+BA.LAB.BRZ ordered. EDMS EDMS 19:33 19:33 SARS-COV-2 Antigen Rapid+I.LAB.BRZ ordered. EDMS EDMS
--- NOTE | 2024-08-25 21:08 | ER ---
Nurse's Notes [facility] Name: Altagracia Yu Age: 19 yrs Sex: Female : 2005 Arrival Date: 08/25/2024 Time: 18:37 Bed 8 Private MD: Diagnosis: Nausea with vomiting, unspecified Presentation: 08/25 19:28 Chief complaint: Patient states: nausea since last week, vomiting, fever since tm6 yesterday. Lower abdominal pain. 19:29 Coronavirus screen: Client denies travel out of the [place] in the last 14 days. Ebola tm6 Screen: Patient negative for fever greater than or equal to 101.5 degrees Fahrenheit, and additional compatible Ebola Virus Disease symptoms Patient denies exposure to infectious person. Patient denies travel to an Ebola-affected area in the 21 days before illness onset. No symptoms or risks identified at this time. Onset of symptoms was August 18, 2024. 19:29 Method Of Arrival: Ambulatory tm6 19:31 Initial Sepsis Screen: Does the patient meet any 2 criteria? No. Patient's initial tm6 sepsis screen is negative. Does the patient have a suspected source of infection? No. Patient's initial sepsis screen is negative. Risk Assessment: Do you want to hurt yourself or someone else? Patient reports no desire to harm self or others. 19:31 Acuity: KARMEN 3 tm6 Triage Assessment: 19:30 General: Appears in no apparent distress. Behavior is calm, cooperative. Pain: Denies tm6 pain. EENT: No signs and/or symptoms were reported regarding the EENT system. Neuro: Level of Consciousness is awake, alert, obeys commands, Oriented to person, place, time, situation. Cardiovascular: Patient's skin is warm and dry. Respiratory: Airway is patent Respiratory effort is even, unlabored, Respiratory pattern is regular, symmetrical. GI: Abdomen is round Reports nausea, vomiting. : No signs and/or symptoms were reported regarding the genitourinary system. Derm: No signs and/or symptoms reported regarding the dermatologic system. Musculoskeletal: No signs and/or symptoms reported regarding the musculoskeletal system. 19:34 GI: Reports lower abdominal pain. tm6 [employer]: 19:28 LMP 08/07/2024, unknown tm6 Historical: - Allergies: 19:30 Aspirin; tm6 19:30 PENICILLINS; tm6 - PMHx: 19:30 adhd; Anxiety; Depression; Suicidal attempts; tm6 - Immunization history:: Flu vaccine is not up to date. - Infectious Disease History:: Denies. - Social history:: Smoking status: Reported history of juuling and/or vaping. Screenin:17 [facility] ED Fall Risk Assessment (Adult) History of falling in the last 3 months, ha1 including since admission No falls in past 3 months (0 pts) Confusion or Disorientation No (0 pts) Intoxicated or Sedated No (0 pts) Impaired Gait No (0 pts) Mobility Assist Device Used No (0 pt) Altered Elimination No (0 pt) Score/Fall Risk Level 0 - 2 = Low Risk Oriented to surroundings, Maintained a safe environment, Educated pt \T\ family on fall prevention, incl call for assistance when getting out of bed, Hourly rounding (assess needs \T\ fall precautionary measures) done. Abuse screen: Denies threats or abuse. Denies injuries from another. Nutritional screening: No deficits noted. Tuberculosis screening: No symptoms or risk factors identified. Assessment: 19:31 General: Appears uncomfortable, Behavior is calm, cooperative. Pain: Denies pain. ha1 Neuro: Level of Consciousness is awake, alert, obeys commands, Oriented to person, place, time, situation. Cardiovascular: Capillary refill < 3 seconds Patient's skin is warm and dry. Respiratory: Airway is patent Respiratory effort is even, unlabored, Respiratory pattern is regular, symmetrical. GI: Abdomen is round non-distended, obese, Reports nausea, vomiting. : No signs and/or symptoms were reported regarding the genitourinary system. EENT: No signs and/or symptoms were reported regarding the EENT system. Derm: Skin is pink, warm \T\ dry. Musculoskeletal: Circulation, motion, and sensation intact. Range of motion: intact in all extremities. 20:17 Reassessment: Patient and/or family updated on plan of care and expected duration. Pain ha1 level reassessed. Patient is alert, oriented x 3, equal unlabored respirations, skin warm/dry/pink. 21:18 Reassessment: Patient and/or family updated on plan of care and expected duration. Pain ha1 level reassessed. Patient is alert, oriented x 3, equal unlabored respirations, skin warm/dry/pink. Patient states feeling better. Patient states symptoms have improved. Vital Signs: 19:31 Pulse 84; Resp 17; Temp 98.4(O); Pulse Ox 99% on R/A; Weight 90.72 kg; Height 5 ft. 5 tm6 in. ; Pain 5/10; 19:35 BP 110 / 66; MAP 78 mmHg; tm6 20:17 BP 113 / 68; Pulse 85; Resp 17 S; Pulse Ox 100% on R/A; ha1 21:10 BP 117 / 69; Pulse 81; Resp 18 S; Pulse Ox 100% on R/A; ha1 19:31 Body Mass Index 33.28 (90.72 kg, 165.1 cm) tm6 19:31 Pain Scale: Adult tm6 ED Course: 18:41 Patient arrived in ED. ra3 18:43 Sveta Saravia FNP-C is PHCP. kb 18:43 Chance Flores MD is Attending Physician. kb 19:30 Arm band placed on right wrist. tm6 19:31 Patient has correct armband on for positive identification. Bed in low position. Call ha1 light in reach. Side rails up X 1. Adult w/ patient. 19:33 Triage completed. tm6 19:42 Inserted saline lock: 20 gauge in right antecubital area, using aseptic technique. ha1 Blood collected. Flushed with 10 mL NS. 19:45 CBC with Diff Sent. ha1 19:45 CMP Sent. ha1 19:45 Lipase Sent. ha1 20:01 SARS-COV-2 Antigen Rapid Sent. ha1 20:01 Flu Sent. ha1 20:18 Provided Education on: plan of care . ha1 21:07 Yajaira Templeton, RN is Primary Nurse. ha1 21:19 No provider procedures requiring assistance completed. IV discontinued, intact, ha1 bleeding controlled, No redness/swelling at site. Pressure dressing applied. Administered Medications: 20:01 Drug: NS 0.9% IV 1000 ml IV at 1 bolus Per protocol; to be given as a bolus over 60 ha1 minutes Route: IV; Rate: 1 bolus; Site: right antecubital; 21:20 Follow up: Response: No adverse reaction; IV Status: Completed infusion; IV Intake: ha1 1000ml Medication: 20:18 VIS not applicable for this client. ha1 Intake: 21:20 IV: 1000ml; Total: 1000ml. ha1 Outcome: 21:07 Discharge ordered by MD. goodman 21:19 Discharged to home ambulatory, with family, ha1 21:19 Condition: stable 21:19 Discharge instructions given to patient, family, Instructed on discharge instructions, follow up and referral plans. Demonstrated understanding of instructions, follow-up care, 21:20 Patient left the ED. ha1 Signatures: Sveta Saravia, REGAN-C STUDIO OPERATIONS ENGINEER IN [employer]-Yajaira Lowery RN RN 1 Jose Prescott RN RN 6 Cara Schofield 3 Corrections: (The following items were deleted from the chart) 19:33 19:28 Chief complaint: Patient states: nausea since last week, vomiting, fever since tm6 yesterday tm6
[2024-08-25 22:09] VITALS: TEMP 98.4
[2024-08-25 22:11] VITALS: BP 113/68; O2SAT 100
== END 2024-08-25 21:20 | disposition home or self-care (01) ==
LOC: ER 18:37
DX: R11.2 Nausea with vomiting, unspecified (principal); Z11.52 Encounter for screening for COVID-19
CPT/HCPCS: 85025; 81001; 36415; 81025; 83690; 80053; 87804 ×2; 96360; 99284; 87811; J7030

== ENCOUNTER 2024-09-14 21:13 | Emergency (ER) | payer OTHER ==
--- NOTE | 2024-09-14 22:12 | RAD REPORT ---
EXAM: Transvaginal OB HISTORY: VAGINAL BLEEDING COMPARISON: None TECHNIQUE: Multiple grayscale and color Doppler images were obtained in a transvaginal pelvic ultraso und. Spectral analysis of the Doppler waveforms of the ovaries were performed. FINDINGS: UTERUS: No IUP identified. The endometrial complex measures 6 mm. The uterus measures 9.16. No free fluid is seen in the pelvis. RIGHT OVARY: Not visualized. LEFT OVARY: Nonvisualized. IMPRESSION: of unknown location. No IUP identified.
[2024-09-15 00:27] LABS: Hemoglobin 12.1 g/dL (12.0-15.0); MCH 25.2 pg (27.0-35.0); Nucleated Red Blood Cells % 0.1 % (0-0)
[2024-09-15 00:29] LABS: Specific Gravity 1.027 (1.005-1.030)
[2024-09-15 00:30] LABS: Specific Gravity 1.027 (1.005-1.030); Sqamous Epithelial <5 /HPF (None Seen); Urine Bacteria None Seen /HPF (<20); Urine Bilirubin NEGATIVE (Negative); Urine Blood 2+ (Negative); Urine Clarity Clear (Clear); Urine Color Light-Yellow (Yellow); Urine Culture Reflex Order NOT NEEDED; Urine Glucose NEGATIVE (Negative); Urine Ketones NEGATIVE (Negative); Urine Microscopic Reflex YN ORDER UMIC; Urine Mucus Slight /HPF (None Seen); Urine Nitrite NEGATIVE (Negative); Urine Protein NEGATIVE (Negative); Urine RBC 21-50 /HPF (None Seen); Urine Urobilinogen Normal (Normal); Urine WBC <5 /HPF (<5); Urine pH 6.5 (5.0-7.0)
[2024-09-15 00:34] LABS: Absolute Basophils 0.1 K/uL (0-0.5); Absolute Eosinophils 0.3 K/uL (0-0.5); Absolute Lymphocytes (CBC) 2.7 K/uL (0.7-4.9); Absolute Monocytes 0.8 K/uL (0.1-1.3); Absolute Neutrophil 4.7 K/uL (1.8-8.0); Basophils % 0.7 % (0-1.3); Eosinophils % 3.4 % (0-4.4); Hematocrit 36.8 % (36.0-45.0); Lymphocytes % 31.8 % (15.3-44.8); MCV 76.5 fL (80-100); MPV 6.9 fL (7.6-11.3); Monocytes % 9.2 % (3.3-12.3); Neutrophils % 54.9 % (41.7-73.7); Platelets 523 thou/uL (152-406); RBC Red Blood Cell Count 4.81 M/uL (3.86-4.86); Red Cell Distribution Width 20.5 % (12.1-15.2)
[2024-09-15 00:42] LABS: Anion Gap 7.8 mEq/L (5.0-15.0); BUN Blood Urea Nitrogen 11 mg/dL (7-18); Bicarbonate 26 mEq/L (21-32); Glomerular Filtration Rate 131 ml/min (=/>90); Glucose Level 89 mg/dL (74-106); HCG, Quantitative < 1 mIU/mL (1-3); Potassium 3.8 mEq/L (3.5-5.1); Sodium Level 136 mEq/L (136-145)
[2024-09-15 00:54] LABS: Anisocytosis 1+; Blood Morphology Comment NOTED (NOT SEEN); Platelet Estimate INCR; White Blood Cell Scan OK (OK)
--- OUTSIDE RECORDS SUMMARY | 2024-09-15 02:40 | XMS REPORT | Continuity of Care Document ---
Author Name Unknown Address [address] [facility] [place] [address] [facility] thconnect Address [address] [facility] [address] [place] [address] Care Team Providers Care Mud Mixer Helper Name Role Phone PCP, PATIENT DOES NOT HAVE A Primary Care Physic louise Unavailable LASHONDA SANTOS Attending Clinician UnavailCAROLE Riojas Attending Clinician Unavailable SHAWN MACIEL Attending Clinician Unavailable SHAWN MACIEL Attending Clinician Unavailable Shawn Maciel MD Attending Clinician [phone] Logan Garcia MD Attending Clinician Franck Elise MD Attending Clinician ZEV CISSE Attending Clinician Unavailable Lashonda Santos CNM Attending Clinician [phone] KHANH VARGHESE Attending Clinician Unavail able Khanh Evans Attending Clinician + ANNA SANTANA Attending Clinician ANNA Wells Attending Clinician Anna Wells MD Attending Clinician + [phone] MARIELA CHEN Attending Clinician Unavailable MARIELA CHEN Attending Clinician Unavailable Lorenzo FELIX, Yves Attending Clinician [phone] Mariela Chen MD Attending Clinician [phone] GUERRERO WHITAKER Attending Clinician Unavailable GUERRERO WHITAKER Attending Clinician Unavailable Guerrero Whitaker MD Attending Clinician [phone] Mamadou MICHAELS Attending Clinician Unavailable Mamadou Braswell Attending Clinician [phone] Doctor Unassigned, [place] Attending Clinician U navailable Angie Valentinohemi Attending Clinician UnavailHeaven Holm Attending Clinician [phone] Yenni Cervantes Attending Clinician Unavailable Hannah Sanchez Attending Clinician Yina Kimble Attending Clinician Unavailable Adali Mcpherson Attending Clinician [phone] Responsible Provider, Not Yet Assigned Attending Clinician Unavailable Yenni Gross Attending Clinician Unavailable Weight Engineer, [facility] Attending Clinic louise Unavailable Shayy Rios Attending Clinician UnavailColette Mandujano Attending Clinician [phone] Tram Landaverde Attending Clinician Unavailable Polina Dobson Attending Clinician Unavailable EMMY BONILLA Attending Clinician Unavailable Emmy Bonilla PA-C Attending Clinician [phone] GUILLERMINA GILL Attending Clinician Unavailable , [facility] Attending Clinician Unavailable GUERRERO WHITAKER Admitting Clinician Unavailable SHAWN MACIEL Admitting Clinician Unavailable Shawn Maciel MD Admitting Clinician [phone] ANNA SANTANA Admitting Clinician Anna Wells MD Admitting Clinician [phone] MARIELA CHEN Admitting Clinician Unavailable Mariela Chen MD Admitting Clinician [phone] Guerrero Whitaker MD Admitting Clinician [phone] [facility]row Unavailable [phone] Adali Mcpherson Unavailable [phone] Colette Chowdary Unavailable [phone] Yenni Cervantes Unavailable Unavailable Payers Payer Name Policy Type Policy Number Effective Date Expirati on Date Source [facility] [id number] 2024 00:00:00 GREG Cintron/ BO WATERS [id number] 2024 00:00:00 [facility] [id number] 2018 00:00:00 Problems Condition Name Condition Details Condition Category Status Onset Date Resolution Date Last Treatment Date Treating Clinician Comments Source (spontaneo us vaginal delivery) (spontaneo us vaginal delivery) Disease Active 2023-08 00:00: 00 [facility] Single live Single live Disease Active 2023-08 00:00: 00 [facility] Obstetrica l laceration Obstetrica l laceration Disease Active 2023-08 00:00: 00 [facility] Anemia, Anemia, Disease Active 2023-08 00:00: 00 [facility] Shoulder dystocia during labor and delivery Shoulder dystocia during labor and delivery Disease Active 2023-08 00:00: 00 [facility] 39 weeks gestation of 39 weeks gestation of Disease Active 2023-08 00:00: 00 [facility] Positive GBS test Positive GBS test Disease Active 2023-08 00:00: 00 [facility] Back pain affecting in third trimester Back pain affecting in third trimester Disease Active 2023-08 00:00: 00 [facility] Morbid obesity with body mass index of 40.0-49.9 Morbid obesity with body mass index of 40.0-49.9 Disease Active 2024-1 1-02 00:00: 00 [facility] Chlamydia infection affecting Chlamydia infection affecting Disease Active 2023-08 0-17 00:00: 00 [facility] Anemia of mother in , antepartum Anemia of mother in , antepartum Disease Active 2023-08 0-16 00:00: 00 [facility] Poor historian Poor historian Disease Active 2023-08 0-16 00:00: 00 [facility] Flu vaccine refused Flu vaccine refused Disease Active 2023-08 0-16 00:00: 00 [facility] Rubella non-immune status, antepartum Rubella non-immune status, antepartum Disease Active 2023-08 0-16 00:00: 00 [facility] Maternal varicella, non-immune Maternal varicella, non-immune Disease Active 2023-08 0-16 00:00: 00 [facility] History of anxiety and depression History of anxiety and depression Disease Active 2023-08 0-15 00:00: 00 [facility] Obesity affecting in third trimester Obesity affecting in third trimester Disease Active 2023-08 0-15 00:00: 00 [facility] Late care Late care Disease Active 2023-08 0-15 00:00: 00 [facility] Current every day vaping Current every day vaping Disease Active 2023-08 0-15 00:00: 00 [facility] Greater Than or Equal to 95th Percentile For Age Condition Active 2-27 00:00: 00 2019-10-15 09:09:50 [facility]row [facility] Anemia in , third trimester Condition Active 2-24 00:00: 00 2019-10-11 11:20:23 Adali Mcpherson [facility] Supervisio n of other high risk pregnancie s, third trimester Condition Active 2-20 00:00: 00 2019-10-07 17:42:03 Colette Chowdary [facility] Supervisio n of high risk due to social problems, third trimester Condition Active 2-20 00:00: 00 2019-10-07 17:42:03 Colette Chowdary [facility] 28 weeks gestation of 28 weeks gestation of Disease Active 2018-08 00:00: 00 [facility] Bacterial vaginosis in Bacterial vaginosis in Disease Resolve d 2023-08 1 00:00: 00 2024-07-20 00:00:00 2024-07-20 19:53:37 [facility] Cramping affecting , antepartum Cramping affecting , antepartum Disease Resolve d 2023-08 0-24 00:00: 00 2024-06-24 00:00:00 2024-06-24 07:22:04 [facility] No leakage of amniotic fluid into vagina No leakage of amniotic fluid into vagina Disease Resolve d 2023-08 00:00: 00 2024-06-23 00:00:00 2024-06-23 12:40:19 [facility] Round ligament pain Round ligament pain Disease Resolve d 09-17 00:00: 00 2024-06-01 00:00:00 2024-06-01 13:43:00 [facility] 32 weeks gestation of 32 weeks gestation of Disease Resolve d 2018-08 00:00: 00 2024-06-01 00:00:00 2024-06-01 13:43:02 [facility] Supervisio n of high risk in third trimester Supervisio n of high risk in third trimester Disease Resolve d 2018-08 00:00: 00 2024-06-01 00:00:00 2024-06-01 13:43:01 [facility] Uterine size-date discrepanc y in third trimester Uterine size-date discrepanc y in third trimester Disease Resolve d 2018-08 00:00: 00 2024-06-01 00:00:00 2024-06-01 13:42:59 [facility] Need for Tdap vaccinatio n Need for Tdap vaccinatio n Disease Resolve d 2018-08 00:00: 00 2024-06-01 00:00:00 2024-06-01 13:43:06 [facility] History of Past Illness Condition Name Condition Details Condition Category Status Onset Date Resolution Date Last Treatment Date Treating Clinician Comments Source 36 Weeks Gestation of Condition Inactiv e - 00:00: 00 2019-10-21 00:00:00 2019-10-15 09:09:50 Yenni Cervantes [facility] 35 Weeks Gestation of Condition Inactiv e 2019-0 2-20 00:00: 00 2019-10-14 00:00:00 2019-10-07 17:42:03 Colette Chowdary [facility] Allergies, Adverse Reactions, Alerts Allergy Name Allergy Type Status Severity Reaction(s) Onset Date Inactive Date Treating Clinician Comments Source PENICILL IN DRUG INGREDI Active Hives 6- 00:00: 00 [facility] Penicill in Propensi ty to adverse reaction s Active Hives 6- 00:00: 00 [facility] Penicill ins - CLASS Propensi ty to adverse reaction to drug Active 7-19 00:00: 00 Penicill ins Propensi ty to adverse reaction to drug Active 3-21 00:00: 00 ASPIRIN DRUG INGREDI Active ITCHING 7- 00:00: 00 [facility] Aspirin Propensi ty to adverse reaction s Active Swelling - 00:00: 00 [facility] Social History Social Habit Start Date Stop Date Quantity Comments Source ASSERTION 2023-11-05 00:00:00 [facility] SDOH Alcohol Std Drinks [facility] History SDOH Alcohol Binge [facility] Tobacco use and exposure 2024-07-22 00:00:00 2024-07-22 00:00:00 Former smokeless tobacco user [facility] Alcoholic beverage intake 2024-07-22 00:00:00 2024-07-22 00:00:00 Lifetime non-drinker (finding) [facility] History of Social function 2024-06-01 00:00:00 2024-06-01 00:00:00 [facility] Tobacco Comment 2024-06-01 00:00:00 2024-06-01 00:00:00 Vapes [facility] Have you traveled to any zika virus infected areas? 2019-10-14 13:44:33 2019-10-14 13:44:33 No [facility] social history E&M 2019-10-07 14:07:37 2019-10-07 14:07:37 not currently with familyliving with fobarbara's familystates her own parents not involved with this . [facility] cat exposure during 2019-10-07 14:07:37 2019-10-07 14:07:37 no [facility] Alcohol intake 2019-09-17 00:00:00 2019-09-17 00:00:00 [facility] History SDOH Alcohol Frequency 2019-03-17 00:00:00 2019-03-17 00:00:00 1 [facility] History of tobacco use 2019-03-07 00:00:00 Chews Tobacco [facility] Sex assigned at 2003 00:00:00 2005 00:00:00 [facility] Smoking Status Start Date Stop Date Source Never smoked tobacco [facility] Medications Ordered Medication Name Filled Medication Name Start Date Stop Date Current Medication? Ordering Clinician Indication Dosage Frequency Signature (SIG) Comments Components Source acetaminoph en 325 mg tablet 2023-08 00:00: 00 07-25 05:59 :00 Yes [id number] 650mg Take 2 tablets by mouth every 8 (eight) hours. [facility] simethicone (GAS RELIEF (SIMETHICON E)) chewable tablet 160 mg 2023-08 15:00: 00 07-24 23:06 :47 No 160mg 160 mg, Oral, PC+HS, First dose on Fri07/23/24 at 0900, Until Discontinu ed, Routine [facility] acetaminoph en (TYLENOL) tablet 650 mg 2023-08 08:00: 00 Yes 650mg 650 mg, Oral, Q8H, First dose on Fri07/23/24 at 0200, Until Discontinu ed, Routine [facility] ibuprofen (IBU) tablet 600 mg 2023-08 08:00: 00 07-24 23:06 :47 No 600mg 600 mg, Oral, Q8HA1, First dose on Fri07/23/24 at 0200, Until Discontinu ed, Routine [facility] rho(D) immune globulin (RHOPHYLAC) injection 300 mcg 2023-08 07:50: 24 07-24 23:06 :47 No 300ug [facility] diphenhydrA MINE (BENADRYL) tablet 25 mg 2023-08 07:50: 20 07-24 23:06 :47 No 25mg [facility] ondansetron (ZOFRAN (PF)) injection 4 mg 2023-08 07:50: 20 07-24 23:06 :47 No 4mg [facility] docusate (COLACE) capsule 200 mg 2023-08 07:50: 20 07-24 23:06 :47 No 200mg 200 mg, Oral, QDAILYPRN, Starting on Fri07/23/24 at 0150, Until 07/24/24 at 1706, Routine, Constipati on [facility] magnesium hydroxide (MILK OF MAGNESIA) 400 mg/5 mL suspension 30 mL 2023-08 07:50: 20 07-24 23:06 :47 No 30mL 30 mL, Oral, QDAILYPRN, Starting on Fri07/23/24 at 0150, Until 07/24/24 at 1706, Routine, Constipati on [facility] benzocaine- menthol (DERMOPLAST ) 20-0.5 % topical spray 2023-08 07:50: 20 07-24 23:06 :47 No Topical, PRN, Starting on Fri07/23/24 at 0150, Until 07/24/24 at 1706, Routine, Perineum discomfort [facility] human papillomav vac,9-dillon(P F) (GARDASIL-9 ) syringe 0.5 mL 2023-08 07:50: 20 07-24 23:06 :47 No .5mL [facility] FENTanyl (PF) (SUBLIMAZE) injection 2023-08 03:40: 00 Yes Epidural, ONCE INTRA PROCEDURE, Starting on Tracey 07/22/24 at 2140, Until Discontinu ed, Routine, Intra-op [facility] [id number] fum-folic 27 mg iron- 1 mg folic tablet 2023-08 00:00: 00 Yes [id number] 1{tbl} Take 1 tablet by mouth in the morning. [facility] docusate 100 mg capsule 2023-08 00:00: 00 Yes [id number] 200mg Take 2 capsules by mouth once daily as needed for Constipati on. [facility] ferrous sulfate 325 mg (65 mg iron) tablet 2023-08 00:00: 00 Yes [id number] 325mg Take 1 tablet by mouth in the morning. [facility] ropivacaine 0.2 % (NAROPIN (PF)) epidural infusion 2023-08 16:33: 00 Yes Epidural, ONCE INTRA PROCEDURE, Starting on Tracey 07/22/24 at 1033, Until Discontinu ed, Routine, Intra-op [facility] lidocaine-e pinephrine (XYLOCAINE W/EPINEPHRI NE) 1.5 %-1:200,000 injection 2023-08 16:31: 00 Yes Epidural, ONCE INTRA PROCEDURE, Starting on Tracey 07/22/24 at 1031, Until Discontinu ed, Routine, Intra-op [facility] sodium citrate-cit geoff acid (BICITRA) 500-334 mg/5 mL solution 30 mL 2023-08 15:31: 11 07-22 16:05 :00 No 30mL 30 mL, Oral, PRE-PROCED URE ONCE, 1 dose, Starting on Tracey 07/22/24 at 0931, Until Tracey 07/22/24 at 1005, Routine, Surgery/Pr ocedure [facility] morpHINE injection 4 mg 2023-08 09:38: 00 07-22 10:03 :00 No 4mg 4 mg, Slow IV Push, ONCE, 1 dose, On Tracey 07/22/24 at 0345, Routine [facility] lactated ringers IV infusion 1,000 mL 2023-08 2-05 07:15: 00 07-23 07:50 :23 No 1000mL at 75 mL/hr, 1,000 mL, IV Infusion, CONTINUOUS , Starting on Tracey 07/22/24 at 0115, Until 07/23/24 at 0150, Routine [facility] alum-mag hydroxide-s imeth (MAG-AL PLUS) 200-200-20 mg/5 mL suspension 30 mL 2023-08 01:51: 00 07-05 02:04 :00 No 30mL 30 mL, Oral, ONCE, 1 dose, On 07/04/24 at 2000, Routine [facility] metroNIDAZO LE 500 mg tablet 2023-08 00:00: 00 07-23 00:00 :00 No [id number] 500mg Take 1 tablet by mouth every 12 (twelve) hours. [facility] proMETHazin e 25 mg tablet 2023-08 00:00: 00 07-23 00:00 :00 No [id number] 25mg Take 1 tablet by mouth every 4 (four) hours as needed for Nausea and Vomiting (N/V). [facility] azithromyci n (ZITHROMAX) 500 mg tablet 2023-08 00:00: 00 06-04 04:59 :00 No [id number] 01 1000mg Take 2 tablets by mouth once now for 1 dose. [facility] Iron Fum & P-FA-Vit B & C No.9 (INTEGRA PLUS) 125 mg iron- 1 mg Cap 2023-08 0-16 00:00: 00 07-23 00:00 :00 No [id number] 1{capsu le} Take 1 capsule by mouth in the morning. [facility] Dose Unknown 05-05 00:00: 00 No TAKE 1 TABLET BY MOUTH EVERY DAY 05-05 00:00: 00 No TAKE 1 TABLET BY MOUTH EVERY DAY 04-04 00:00: 00 No 10 TAKE 1 TABLET BY MOUTH EVERY DAY 2022-0 8-18 00:00: 00 No 10 Dose Unknown 2022-0 8-12 00:00: 00 No 375 Dose Unknown 2022-0 8-12 00:00: 00 No 375 Dose Unknown 2022-0 8-12 00:00: 00 No 375 TAKE 1 CAPSULE BY MOUTH 3 TIMES A DAY NEEDED 2022-0 8-10 00:00: 00 No 25 TAKE 1 CAPSULE BY MOUTH 3 TIMES A DAY NEEDED 2022-0 8-10 00:00: 00 No 25 TAKE 1 CAPSULE BY MOUTH 3 TIMES A DAY NEEDED 2-0 8-10 00:00: 00 No 25 Dose Unknown 2022-0 8-08 00:00: 00 No 500 Dose Unknown 2022-0 8-08 00:00: 00 No 300 Dose Unknown 2022-0 8-08 00:00: 00 No 500 Dose Unknown 2-0 8-08 00:00: 00 No 300 Dose Unknown 2022-0 8-08 00:00: 00 No 500 Dose Unknown 2022-0 8-08 00:00: 00 No 300 TAKE 1 TABLET [...] 2022-0 7-20 00:00: 00 No 375 &lt 2021-0 7-20 00:00: 00 No 500 TAKE 1 CAPSULE BY MOUTH EVERY 6 HOURS FOR 10 DAYS 2021-0 7-20 00:00: 00 No 300 citalopram 10 mg tablet 0 7-20 00:00: 00 No 1mg Dose Unknown 0 7-20 00:00: 00 No 375 &lt 2021-0 7-20 00:00: 00 No 500 TAKE 1 CAPSULE BY MOUTH EVERY 6 HOURS FOR 10 DAYS 0 7-20 00:00: 00 No 300 citalopram 10 mg tablet 0 20 00:00: 00 No 1mg Dose Unknown 0 03-06 00:00: 00 No 375 &lt 2021-0 7-20 00:00: 00 No 500 TAKE 1 CAPSULE BY MOUTH EVERY 6 HOURS FOR 10 DAYS 0 20 00:00: 00 No 300 citalopram 10 mg tablet 2021-0 720 00:00: 00 No 1mg Dose Unknown 0 03-06 00:00: 00 No 375 &lt 2021-0 720 00:00: 00 No 500 TAKE 1 CAPSULE BY MOUTH EVERY 6 HOURS FOR 10 DAYS 0 20 00:00: 00 No 300 citalopram 10 mg tablet 2021-0 03-05 00:00: 00 No 1mg citalopram 10 mg tablet 2021-0 03-05 00:00: 00 No 1mg citalopram 10 mg tablet 2021-0 03-05 00:00: 00 No 1mg citalopram 10 mg tablet 0 19 00:00: 00 No 1mg TAKE 1 CAPSULE BY MOUTH EVERY DAY 2021-0 715 00:00: 00 No 375 &lt 2021-0 7-15 00:00: 00 No TAKE 1 CAPSULE BY MOUTH EVERY 6 HOURS FOR 10 DAYS 2021-0 15 00:00: 00 No 300 TAKE 1 CAPSULE BY MOUTH EVERY DAY 2021-0 715 00:00: 00 No 375 &lt 2-0 7-15 00:00: 00 No TAKE 1 CAPSULE BY MOUTH EVERY 6 HOURS FOR 10 DAYS 2021-0 -15 00:00: 00 No 300 TAKE 1 CAPSULE [...] tablet 0 2 00:00: 00 No 1mg doxycycline monohydrate 100 mg capsule 2020-08 00:00: 00 No 1mg doxycycline monohydrate 100 mg capsule 2020-08 00:00: 00 No 1mg doxycycline monohydrate 100 mg capsule 2020-08 00:00: 00 No 1mg doxycycline monohydrate 100 mg capsule 2020-08 00:00: 00 No 1mg doxycycline monohydrate 100 mg capsule 2020-08 00:00: 00 No 1mg medroxyprog esterone 150 mg/mL intramuscul ar syringe 2020-0 03-13 00:00: 00 No 1mg/mL medroxyprog esterone 150 mg/mL intramuscul ar syringe 1-0 03-13 00:00: 00 No 1mg/mL medroxyprog esterone 150 mg/mL intramuscul ar syringe 0 03-13 00:00: 00 No 1mg/mL medroxyprog esterone 150 mg/mL intramuscul ar syringe 0 03-13 00:00: 00 No 1mg/mL medroxyprog esterone [...] (FE CBN-FE GLUC-FA-B12 -C-DSS) 90-1 MG TABS 224 00:00: 00 Yes Adali Mcpherson Take 1 Tablet Once a Day [facility] VITAFOL ULTRA (PRENAT-FE POLY-METHFO L-FA-DHA) 29-0.6-0.4- 200 MG CAPS 10-07 00:00: 00 Yes Colette Manning 1{Capsu le} 1xD take 1 capsule by mouth daily [facility] BLOOD PRESSURE (BLOOD PRESSURE MONITORING) KIT 10-07 00:00: 00 Yes Colette Manning take twice daily [facility] PNV 67-iron ps-folate no.1-dha (VITAFOL ULTRA) 29 mg iron- 1 mg-200 mg Cap 03-20 00:00: 00 Yes [id number] Take 1 TAB-CAP/M2 by mouth daily. [facility] PNV 67-iron ps-folate no.1-dha (VITAFOL ULTRA) 29 mg iron- 1 mg-200 mg Cap 03-20 00:00: 00 07-23 00:00 :00 No [id number] Take 1 TAB-CAP/M2 by mouth daily. [facility] cetirizine 5 mg tablet 12-22 00:00: 00 [...] (28) No known medications No Un adrian [facility] No known medications No Un adrian [facility] Immunizations Ordered Immunization Name Filled Immunization Name Date Status Comments Source TDAP 2024-06-01 00:00:00 Completed [facility] TDAP (ADACEL) VACCINE 2019-08-17 00:00:00 Completed [facility] TDAP (ADACEL) VACCINE 2019-08-17 00:00:00 Completed [facility] TDAP (ADACEL) VACCINE 2019-08-17 00:00:00 Completed [facility] TDAP (ADACEL) VACCINE 2019-08-17 00:00:00 Completed [facility] TDAP (ADACEL) VACCINE 2019-08-17 00:00:00 Completed Influenza Virus Vaccine Quad .5 mL IM 6+ MO 2019-06-14 00:00:00 Completed [facility] Influenza Virus Vaccine Quad .5 mL IM 6+ MO 2019-06-14 00:00:00 Completed [facility] Influenza Virus Vaccine Quad .5 mL IM 6+ MO 2019-06-14 00:00:00 Completed [facility] Influenza Virus Vaccine Quad .5 mL IM 6+ MO 2019-06-14 00:00:00 Completed [facility] Influenza Virus Vaccine Quad .5 mL IM 6+ MO (FLUZONE/FLULAVAL/F LUARIX) 2019-06-14 00:00:00 Completed [facility] HPV9 2018-12-11 00:00:00 Completed Hep A, ped/adol, [...] IM 6+ MO (FLUZONE/FLULAVAL/F LUARIX) Unknown Completed [facility] TDAP (ADACEL) VACCINE Unknown Completed [facility] Vital Signs Vital Name Observation Time Observation Value Comments S ource Systolic blood pressure 2024-07-24 05:51:00 113 mm[Hg] [facility] Diastolic blood pressure 2024-07-24 05:51:00 60 mm[Hg] [facility] Heart rate 2024-07-24 05:51:00 64 /min [facility] Body temperature 2024-07-24 05:51:00 36.39 Vicky [facility] Respiratory rate 2024-07-24 05:51:00 18 /min [facility] Oxygen saturation in Arterial blood by Pulse oximetry 2024-07-24 05:51:00 97 /min [facility] Body weight 2024-07-22 12:30:00 124.785 kg [facility] BMI 2024-07-22 12:30:00 45.78 kg/m2 [facility] Body height 2024-07-22 07:45:00 165.1 cm [facility] Systolic blood pressure 2024-07-20 21:17:00 127 mm[Hg] [facility] Diastolic blood pressure 2024-07-20 21:17:00 86 mm[Hg] [facility] Heart rate 2024-07-20 21:17:00 116 /min [facility] Body temperature 2024-07-20 21:17:00 36.61 Vicky [facility] Respiratory rate 2024-07-20 21:17:00 18 /min [facility] Body height 2024-07-20 21:17:00 165.1 cm [facility] Body weight 2024-07-20 21:17:00 123.86 kg [facility] BMI 2024-07-20 21:17:00 45.44 kg/m2 [facility] Systolic blood pressure 2024-07-09 17:21:00 134 mm[Hg] [facility] Diastolic blood pressure 2024-07-09 17:21:00 88 mm[Hg] [facility] Heart rate 2024-07-09 17:21:00 103 /min [facility] Body temperature 2024-07-09 17:21:00 36.28 Vicky [facility] Respiratory rate 2024-07-09 17:21:00 18 /min [facility] Body height 2024-07-09 17:21:00 165.1 cm [facility] Body weight 2024-07-09 17:21:00 121.224 kg [facility] BMI 2024-07-09 17:21:00 44.47 kg/m2 [facility] Systolic blood pressure 2024-07-05 03:39:00 112 mm[Hg] [facility] Diastolic blood pressure 2024-07-05 03:39:00 62 mm[Hg] [facility] Heart rate 2024-07-05 03:39:00 91 /min [facility] Oxygen saturation in Arterial blood by Pulse oximetry 2024-07-05 03:39:00 98 /min [facility] Body temperature 2024-07-05 01:19:00 36.83 Vicky [facility] Respiratory rate 2024-07-05 01:19:00 18 /min [facility] Body height 2024-07-05 01:19:00 165.1 cm [facility] Body weight 2024-07-05 01:19:00 122.018 kg [facility] BMI 2024-07-05 01:19:00 44.76 kg/m2 [facility] Systolic blood pressure 2024-06-28 18:30:00 114 mm[Hg] [facility] Diastolic blood pressure 2024-06-28 18:30:00 58 mm[Hg] [facility] Heart rate 2024-06-28 18:30:00 85 /min [facility] Oxygen saturation in Arterial blood by Pulse oximetry 2024-06-28 18:30:00 98 /min [facility] Body temperature 2024-06-28 17:31:00 36.94 Vicky [facility] Respiratory rate 2024-06-28 17:31:00 18 /min [facility] Body height 2024-06-28 17:10:00 165.1 cm [facility] [facility] Body weight 2024-06-28 17:10:00 120.203 kg [facility] BMI 2024-06-28 17:10:00 44.10 kg/m2 [facility] Systolic blood pressure 2024-06-23 18:22:00 109 mm[Hg] [facility] Diastolic blood pressure 2024-06-23 18:22:00 60 mm[Hg] [facility] Heart rate 2024-06-23 18:22:00 101 /min [facility] Body temperature 2024-06-23 18:22:00 35.83 Vicky [facility] Respiratory rate 2024-06-23 18:22:00 18 /min [facility] Body height 2024-06-23 18:22:00 165.1 cm [facility] Body weight 2024-06-23 18:22:00 119.75 kg [facility] BMI 2024-06-23 18:22:00 43.93 kg/m2 [facility] Systolic blood pressure 2024-06-19 12:30:00 84 mm[Hg] [facility] Diastolic blood pressure 2024-06-19 12:30:00 57 mm[Hg] [facility] Heart rate 2024-06-19 12:30:00 72 /min [facility] Oxygen saturation in Arterial blood by Pulse oximetry 2024-06-19 12:30:00 98 /min [facility] Body temperature 2024-06-19 09:24:00 36.44 Vicky [facility] Respiratory rate 2024-06-19 09:24:00 18 /min [facility] Body height 2024-06-19 09:24:00 165.1 cm [facility] Body weight 2024-06-19 09:24:00 118.661 kg [facility] BMI 2024-06-19 09:24:00 43.53 kg/m2 [facility] Systolic blood pressure 2024-06-09 17:33:00 94 mm[Hg] [facility] Diastolic blood pressure 2024-06-09 17:33:00 76 mm[Hg] [facility] Heart rate 2024-06-09 17:26:00 84 /min [facility] Body temperature 2024-06-09 17:26:00 36.5 Vicky [facility] Respiratory rate 2024-06-09 17:26:00 18 /min [facility] Body height 2024-06-09 17:26:00 165.1 cm [facility] Body weight 2024-06-09 17:26:00 117.283 kg [facility] BMI 2024-06-09 17:26:00 43.03 kg/m2 [facility] Systolic blood pressure 2024-06-04 09:30:00 118 mm[Hg] [facility] Diastolic blood pressure 2024-06-04 09:30:00 72 mm[Hg] [facility] Heart rate 2024-06-04 09:30:00 87 /min [facility] Oxygen saturation in Arterial blood by Pulse oximetry 2024-06-04 09:30:00 96 /min [facility] Respiratory rate 2024-06-04 09:00:00 19 /min [facility] Body temperature 2024-06-04 06:22:00 36.83 Vicky [facility] Body height 2024-06-04 06:00:00 165.1 cm [facility] Body weight 2024-06-04 06:00:00 117.028 kg [facility] BMI 2024-06-04 06:00:00 42.93 kg/m2 [facility] Systolic blood pressure 2024-06-01 18:05:00 115 mm[Hg] [facility] Diastolic blood pressure 2024-06-01 18:05:00 73 mm[Hg] [facility] Heart rate 2024-06-01 18:05:00 98 /min [facility] Body temperature 2024-06-01 18:05:00 36.61 Vicky [facility] Respiratory rate 2024-06-01 18:05:00 18 /min [facility] Body height 2024-06-01 18:05:00 165.1 cm [facility] Body weight 2024-06-01 18:05:00 117.845 kg [facility] BMI 2024-06-01 18:05:00 43.23 kg/m2 [facility] Systolic blood pressure 2024-02-08 03:23:00 143 mm[Hg] [facility] Diastolic blood pressure 2024-02-08 03:23:00 82 mm[Hg] [facility] Heart rate 2024-02-08 03:23:00 93 /min [facility] Body temperature 2024-02-08 03:23:00 37.39 Vicky [facility] Respiratory rate 2024-02-08 03:23:00 21 /min [facility] Body height 2024-02-08 03:23:00 165.1 cm [facility] Body weight 2024-02-08 03:23:00 106.641 kg [facility] BMI 2024-02-08 03:23:00 39.12 kg/m2 [facility] Oxygen saturation in Arterial blood by Pulse oximetry 2024-02-08 03:23:00 100 /min [facility] Systolic blood pressure 2019-08-31 23:06:00 93 mm[Hg] [facility] Diastolic blood pressure 2019-08-31 23:06:00 64 mm[Hg] [facility] Heart rate 2019-08-31 23:06:00 90 /min [facility] Body temperature 2019-08-31 23:06:00 36.39 Vicky [facility] Respiratory rate 2019-08-31 23:06:00 18 /min [facility] Body height 2019-08-31 23:06:00 160 cm [facility] Body weight 2019-08-31 23:06:00 101.606 kg [facility] BMI 2019-08-31 23:06:00 39.68 kg/m2 [facility] Systolic blood pressure 2019-04-14 19:00:00 117 mm[Hg] [facility] Diastolic blood pressure 2019-04-14 19:00:00 70 mm[Hg] [facility] Heart rate 2019-04-14 19:00:00 79 /min [facility] Body temperature 2019-04-14 19:00:00 36.89 Vicky [facility] Respiratory rate 2019-04-14 19:00:00 18 /min [facility] Body height 2019-04-14 19:00:00 160 cm [facility] Body weight 2019-04-14 19:00:00 87.544 kg [facility] BMI 2019-04-14 19:00:00 34.19 kg/m2 [facility] Systolic blood pressure 2019-03-17 14:24:00 112 mm[Hg] [facility] Diastolic blood pressure 2019-03-17 14:24:00 70 mm[Hg] [facility] Heart rate 2019-03-17 14:24:00 77 /min [facility] Body temperature 2019-03-17 14:24:00 36.83 Vicky [facility] Respiratory rate 2019-03-17 14:24:00 18 /min [facility] Body height 2019-03-17 14:24:00 160 cm [facility] Body weight 2019-03-17 14:24:00 90.266 kg [facility] BMI 2019-03-17 14:24:00 35.25 kg/m2 [facility] BP Systolic 2022-05-07 17:13:00 117 [...] blood pressure, diastolic 2019-10-14 13:44:33 84 mm[Hg] [facility] blood pressure, systolic 2019-10-14 13:44:33 125 mm[Hg] [facility] pulse rate E&M 2019-10-14 13:44:33 87 /min L [facility] oxygen saturation, oximetry 2019-10-14 13:44:33 97 % [facility] respiratory rate E&M 2019-10-14 13:44:33 20 /min [facility] temperature site 2019-10-14 13:44:33 oral [facility] temperature E&M 2019-10-14 13:44:33 98.3 [degF] [facility] weight E&M 2019-10-14 13:44:33 238.8 [lb_av] [facility] height E&M 2019-10-14 13:44:33 63 [in_i] [facility] 2019-10-07 14:07:37 98 % [facility], diastolic 2019-10-07 14:07:37 83 mm[Hg] [facility] blood pressure, systolic 2019-10-07 14:07:37 130 mm[Hg] [facility] pulse rate E&M 2019-10-07 14:07:37 91 /min L [facility] temperature E&M 2019-10-07 14:07:37 98.6 [degF] [facility] temperature site 2019-10-07 14:07:37 oral [facility] height E&M 2019-10-07 14:07:37 63 [in_i] Legac y [facility] weight E&M 2019-10-07 14:07:37 235 [lb_av] [facility] Procedures Procedure Date / Time Performed Performing Clinician Source CBC WITH DIFF 2024-07-23 12:09:00 Keith Hwang [facility] VENOUS CORD GAS 2024-07-23 03:58:00 [facility] CENTRAL NEURAXIAL BLOCK 2024-07-22 16:04:00 Logan Long [facility] CBC WITH DIFF 2024-07-22 05:38:00 Hien Flores [facility] HEPATITIS B SURFACE ANTIGEN 2024-07-22 05:38:00 Hien Flores [facility] HB ABO GROUPING 2024-07-22 05:38:00 [facility] RHO (D) IMMUNE GLOBULIN 2024-07-22 05:38:00 Syd Hwang [facility] HIV 1/2 AG-AB WITH REFLEX 2024-07-22 05:38:00 Hien Flores [facility] SYPHILIS IGG/IGM 2024-07-22 05:38:00 Hien Flores [facility] POCT URINALYSIS 2024-07-20 21:18:00 Lashonda Santos [facility] GROUP B STREP SCREEN CULTURE 2024-07-09 17:45:00 Lashonda Santos [facility] GROUP B STREPTOCOCCUS BY PCR 2024-07-09 17:45:00 Lashonda Santos [facility] POCT URINALYSIS 2024-07-09 17:21:00 Lashonda Sanots [facility] URINALYSIS 2024-06-28 17:49:00 Anna Santana [facility] ADC CLC OR LCC ONLY - WET PREP 2024-06-28 17:49:00 Max Anna [facility] POCT URINALYSIS 2024-06-23 18:24:00 Lashonda Santos [facility] ADC ONLY - FERN TEST 2024-06-19 13:13:00 Adum, Mariela Mcmahon [facility] US PELVIS > 14 WEEKS 2024-06-19 12:47:02 Adum, Mariela Salome [facility] ADC ONLY - FERN TEST 2024-06-19 09:45:00 Adum, Mariela Mcmahon [facility] POCT URINALYSIS 2024-06-09 17:25:00 Lashonda Santos [facility] URINALYSIS 2024-06-04 06:44:00 Guerrero Whitaker [facility] ADC CLC OR LCC ONLY - WET PREP 2024-06-04 06:44:00 Guerrero Whitaker [facility] GLUCOSE 1 HOUR POST PRANDIAL 2024-06-01 19:14:00 Lashonda Santos [facility] CBC WITH DIFF 2024-06-01 19:14:00 Lashonda Santos [facility] HEPATITIS B SURFACE ANTIGEN 2024-06-01 19:14:00 Lashonda Santos [facility] HCV ANTIBODY 2024-06-01 19:14:00 [facility] INDIRECT ANTIGLOBULIN TEST 2024-06-01 19:14:00 Lashonda Santos [facility] HIV 1/2 AG-AB WITH REFLEX 2024-06-01 19:14:00 Lashonda Santos [facility] RUBELLA SCREEN IGG 2024-06-01 19:14:00 Marysol Santos [facility] VZV ANTIBODY SCREEN 2024-06-01 19:14:00 Maddy Santos [facility] URINE CULTURE 2024-06-01 19:14:00 Lashonda Santos [facility] GC & CHLAMYDIA AMPLIFIED ASSAY 2024-06-01 19:14:00 Lashonda Santos [facility] LAB ONLY PAP SMEAR-LIQUID BASED 2024-06-01 19:14:00 Lashonda Santos [facility] TRICHOMONAS AMPLIFIED ASSAY 2024-06-01 19:14:00 Lashonda Santos [facility] PAP SMEAR-LIQUID BASED-CP 2024-06-01 19:14:00 Lashonda Santos [facility] SYPHILIS IGG/IGM 2024-06-01 19:14:00 Lashonda Santos [facility] TDAP VACCINE, >11 YRS, IM 2024-06-01 18:45:16 Lashonda Santos [facility] POCT TEST 2024-06-01 00:00:00 Maddy Santos [facility] POCT URINALYSIS W/O SPECIFIC GRAVITY 2024-06-01 00:00:00 Lashonda Santos [facility] CONSENT/REFUSAL FOR DIAGNOSIS AND TREATMENT 2019-10-25 05:01:00 Doctor Unassigned, [place] [facility] Nutrition Counseling (Obese) 2019-10-14 14:28:44 Heaven Morrow [facility] Case Mgmt Visit, Non-Billable [id number] 2019-10-07 15:54:24 Yenni Gross [facility] Vaccines Ordered - Print Consent/Declination Forms 2019-10-07 15:46:26 Colette Chowdary [facility] POCT URINALYSIS W/O SPECIFIC GRAVITY 2019-08-31 00:00:00 Emmy Bonilla [facility] <14 WEEKS US LIMITED 2019-04-16 17:44:02 Guerrero Whitaker [facility] CBC WITH DIFFERENTIAL 2019-04-14 21:36:00 Guerrero Whitaker [facility] ASSIGNMENT OF BENEFITS 2019-04-14 20:00:31 Docto r Unassigned, [place] [facility] <14 WEEKS US LIMITED 2019-03-20 23:54:07 Guerrero Whitaker [facility] TOTAL BETA HCG ASSAY 2019-03-17 15:19:00 Guerrero Whitaker [facility] GC & CHLAMYDIA AMPLIFIED ASSAY 2019-03-17 14:53:00 Guerrero Whitaker [facility] GALV ONLY - VAGINAL PATHOGENS BY DNA PROBE 2019-03-17 14:53:00 Guerrero Whitaker [facility] ADC / LCC - DRUG SCREEN TRIAGE 2019-03-17 14:53:00 Guerrero Whitaker [facility] POCT TEST 2019-03-17 00:00:00 Guerrero Whitaker [facility] POCT URINALYSIS W/O SPECIFIC GRAVITY 2019-03-17 00:00:00 Guerrero Whitaker [facility] Plan of Care Planned Activity Planned Date Details Comments Source Goal Plan of Care Note [code = 63439-5] Goal Plan of Care Note [code = 50165-5] Goal Plan of Care Note [code = 36384-4] Goal Plan of Care Note [code = 91349-8] Goal Plan of Care Note [code = 34544-1] Goal Plan of Care Note [code = 46628-2] Goal Plan of Care Note [code = 77007-3] Goal Plan of Care Note [code = 54768-4] Goal Plan of Care Note [code = 32687-9] Goal Plan of Care Note [code = 54588-5] Goal Plan of Care Note [code = 09154-8] Goal Plan of Care Note [code = 18361-8] Goal Plan of Care Note [code = 55787-8] Goal Plan of Care Note [code = 03261-8] Goal Plan of Care Note [code = 57035-8] Goal Plan of Care Note [code = 69191-4] Goal Plan of Care Note [code = 36832-2] Goal Plan of Care Note [code = 20384-2] Goal Plan of Care Note [code = 77195-5] Goal Plan of Care Note [code = 27282-6] Goal Plan of Care Note [code = 11077-7] Goal Plan of Care Note [code = 52208-4] Goal Plan of Care Note [code = 27638-3] Goal Plan of Care Note [code = 10381-3] Goal Plan of Care Note [code = 63522-3] Goal Plan of Care Note [code = 70923-9] Goal Plan of Care Note [code = 91606-8] Goal Plan of Care Note [code = 59191-0] Goal Plan of Care Note [code = 53517-0] Goal Plan of Care Note [code = 50222-2] Goal Plan of Care Note [code = 58190-0] Goal Plan of Care Note [code = 00090-2] Goal Plan of Care Note [code = 89147-0] Goal Plan of Care Note [code = 86291-3] Goal Plan of Care Note [code = 38209-4] Goal Plan of Care Note [code = 42513-2] Goal Plan of Care Note [code = 67428-0] Goal Plan of Care Note [code = 80761-3] Goal Plan of Care Note [code = 83962-9] Goal Plan of Care Note [code = 11721-9] Goal Plan of Care Note [code = 38378-5] Goal Plan of Care Note [code = 12330-9] Goal Plan of Care Note [code = 51433-2] Goal Plan of Care Note [code = 39800-1] Goal Plan of Care Note [code = 00190-5] Goal Plan of Care Note [code = 41211-0] Goal Plan of Care Note [code = 86774-9] Goal Plan of Care Note [code = 80046-4] Goal Plan of Care Note [code = 24432-1] Goal Plan of Care Note [code = 25183-0] Goal Plan of Care Note [code = 84018-8] Goal Plan of Care Note [code = 20122-6] Goal Plan of Care Note [code = 59831-9] Goal Plan of Care Note [code = 69672-3] Goal Plan of Care Note [code = 36258-5] Goal Plan of Care Note [code = 40893-4] Goal Plan of Care Note [code = 51278-3] Goal Plan of Care Note [code = 15706-6] Goal Plan of Care Note [code = 21919-4] Goal Plan of Care Note [code = 63654-2] Goal Plan of Care Note [code = 49734-4] Goal Plan of Care Note [code = 72785-1] Goal Plan of Care Note [code = 03481-2] Goal Plan of Care Note [code = 71807-7] Goal Plan of Care Note [code = 07285-3] Goal Plan of Care Note [code = 75556-8] Goal Plan of Care Note [code = 53583-8] Goal Plan of Care Note [code = 53103-7] Goal Plan of Care Note [code = 51442-4] Goal Plan of Care Note [code = 41242-4] Goal Plan of Care Note [code = 56611-1] Goal Plan of Care Note [code = 55317-2] Goal Plan of Care Note [code = 34088-8] Goal Plan of Care Note [code = 07013-7] Goal Plan of Care Note [code = 25833-0] Goal Plan of Care Note [code = 97028-4] Goal Plan of Care Note [code = 12077-3] Goal Plan of Care Note [code = 42705-0] Goal Plan of Care Note [code = 64825-6] Goal Plan of Care Note [code = 37269-7] Goal Plan of Care Note [code = 76504-0] Goal Plan of Care Note [code = 40496-6] Goal Plan of Care Note [code = 67548-4] Goal Plan of Care Note [code = 46856-6] Goal Plan of Care Note [code = 12417-5] Goal Plan of Care Note [code = 28660-8] Goal Plan of Care Note [code = 16843-8] Goal Plan of Care Note [code = 24046-8] Goal Plan of Care Note [code = 14755-8] Goal Plan of Care Note [code = 97426-0] Goal Plan of Care Note [code = 65808-8] Goal Plan of Care Note [code = 93424-5] Goal Plan of Care Note [code = 57519-0] Goal Plan of Care Note [code = 62880-7] Goal Plan of Care Note [code = 74289-6] Goal Plan of Care Note [code = 03038-4] Goal Plan of Care Note [code = 04491-4] Goal Plan of Care Note [code = 28992-2] Goal Plan of Care Note [code = 00782-4] Goal Plan of Care Note [code = 53715-8] Goal Plan of Care Note [code = 76033-7] Goal Plan of Care Note [code = 75384-7] Goal Plan of Care Note [code = 30535-1] Goal Plan of Care Note [code = 31608-1] Goal Plan of Care Note [code = 67769-3] Goal Plan of Care Note [code = 13564-6] Goal Plan of Care Note [code = 16858-6] Goal Plan of Care Note [code = 20018-8] Goal Plan of Care Note [code = 86178-9] Goal Plan of Care Note [code = 67325-2] Goal Plan of Care Note [code = 77867-4] Goal Plan of Care Note [code = 58768-1] Goal Plan of Care Note [code = 51318-3] Goal Plan of Care Note [code = 98222-5] Goal Plan of Care Note [code = 23995-2] Goal Plan of Care Note [code = 37079-2] Goal Plan of Care Note [code = 49864-2] Goal Plan of Care Note [code = 81689-9] Goal Plan of Care Note [code = 25867-8] Goal Plan of Care Note [code = 81058-7] Goal Plan of Care Note [code = 89046-7] Goal Plan of Care Note [code = 06152-8] Goal Plan of Care Note [code = 59293-0] Goal Plan of Care Note [code = 81394-2] Goal Plan of Care Note [code = 20781-2] Goal Plan of Care Note [code = 43119-3] Goal Plan of Care Note [code = 88335-2] Goal Plan of Care Note [code = 37666-5] Goal Plan of Care Note [code = 91257-1] Goal Plan of Care Note [code = 68092-9] Goal Plan of Care Note [code = 27761-6] Goal Plan of Care Note [code = 13225-4] Goal Plan of Care Note [code = 14970-6] Goal Plan of Care Note [code = 89233-9] Goal Plan of Care Note [code = 63794-6] Goal Plan of Care Note [code = 82948-0] Goal Plan of Care Note [code = 43954-6] Goal Plan of Care Note [code = 63129-2] Goal Plan of Care Note [code = 19332-7] Goal Plan of Care Note [code = 05235-8] Goal Plan of Care Note [code = 74754-6] Goal Plan of Care Note [code = 77473-0] Goal Plan of Care Note [code = 43984-2] Goal Plan of Care Note [code = 53816-3] Goal Plan of Care Note [code = 91659-8] Goal Plan of Care Note [code = 60091-5] Goal Plan of Care Note [code = 83566-5] Goal Plan of Care Note [code = 80163-8] Goal Plan of Care Note [code = 63575-7] Goal Plan of Care Note [code = 71602-8] Goal Plan of Care Note [code = 52217-4] Goal Plan of Care Note [code = 74397-2] Goal Plan of Care Note [code = 57265-3] Goal Plan of Care Note [code = 16483-7] Goal Plan of Care Note [code = 81626-5] Goal Plan of Care Note [code = 59077-5] Goal Plan of Care Note [code = 05532-0] Goal Plan of Care Note [code = 70097-1] Goal Plan of Care Note [code = 34479-5] Goal Plan of Care Note [code = 91997-8] Goal Plan of Care Note [code = 44899-5] Goal Plan of Care Note [code = 67969-9] Goal Plan of Care Note [code = 49481-7] Goal Plan of Care Note [code = 81496-0] Goal Plan of Care Note [code = 00096-7] Goal Plan of Care Note [code = 86550-3] Goal Plan of Care Note [code = 00164-1] Goal Plan of Care Note [code = 22751-7] Goal Plan of Care Note [code = 51236-2] Goal Plan of Care Note [code = 30898-3] Goal Plan of Care Note [code = 07146-0] Goal Plan of Care Note [code = 76918-7] Goal Plan of Care Note [code = 72334-0] Goal Plan of Care Note [code = 60907-6] Goal Plan of Care Note [code = 90766-3] Goal Plan of Care Note [code = 01643-2] Goal Plan of Care Note [code = 65814-4] Goal Plan of Care Note [code = 07883-0] Goal Plan of Care Note [code = 21887-8] Goal Plan of Care Note [code = 43987-2] Goal Plan of Care Note [code = 55326-7] Goal Plan of Care Note [code = 54420-5] Goal Plan of Care Note [code = 58785-6] Goal Plan of Care Note [code = 41917-3] Goal Plan of Care Note [code = 60683-0] Goal Plan of Care Note [code = 83423-8] Goal Plan of Care Note [code = 85089-0] Goal Plan of Care Note [code = 36138-4] Goal Plan of Care Note [code = 40438-4] Goal Plan of Care Note [code = 09881-5] Goal Plan of Care Note [code = 91587-8] Goal Plan of Care Note [code = 76241-2] Goal Plan of Care Note [code = 54876-9] Goal Plan of Care Note [code = 03992-9] Goal Plan of Care Note [code = 67714-7] Goal Plan of Care Note [code = 89208-2] Goal Plan of Care Note [code = 17819-2] Goal Plan of Care Note [code = 02537-4] Goal Plan of Care Note [code = 46277-3] Goal Plan of Care Note [code = 67119-4] Goal Plan of Care Note [code = 40829-1] Goal Plan of Care Note [code = 24957-9] Goal Plan of Care Note [code = 84091-9] Goal Plan of Care Note [code = 79631-3] Goal Plan of Care Note [code = 02407-0] Goal Plan of Care Note [code = 82818-6] Goal Plan of Care Note [code = 59657-7] Goal Plan of Care Note [code = 55943-5] Goal Plan of Care Note [code = 65252-0] Encounters Start Date/Time End Date/Time Encounter Type Admission Type Attending [facility] Care Facility Care Department Encounter ID Source 2024-06-04 04:57:59 Outpatient X [facility] [id number] [facility] 2024-09-09 16:00:00 2024-09-09 16:00:00 Outpatient R LASHONDA SANTOS [facility] [id number] [facility] 2024-07-21 19:49:00 2024-07-24 17:06:00 [id number] 2024-07-21 19:49:00 2024-07-24 17:06:00 Hospital Encounter Shawn Maciel [facility] ([facility] 1.2.840.114 350.1.13.10 4.2.7.2.686 [id number] [facility] 2024-07-22 09:49:00 2024-07-22 09:49:00 Anesthesia Event Logan Garcia Rakesh Raj [facility] ([facility]) 1.2.840.114 350.1.13.10 4.2.7.2.686 [id number] [facility] 2024-07-20 00:00:00 2024-07-20 15:59:24 Letter (Out) Lashonda Santos [facility] 1.2.840.114 350.1.13.10 4.2.7.2.686 [id number] [facility] 2024-07-20 15:45:00 2024-07-20 15:57:56 Outpatient R LASHONDA SANTOS [facility] [id number] [facility] 2024-07-20 15:45:00 2024-07-20 15:57:56 Routine Visit Lashonda Santos [facility]IR [facility] 1.2.840.114 350.1.13.10 4.2.7.2.686 [id number] [facility] 2024-07-14 00:00:00 2024-07-14 13:40:12 Telephone Lashonda Santos [facility] CHAIR [facility] 1.2.840.114 350.1.13.10 4.2.7.2.686 [id number] [facility] 2024-07-13 15:45:00 2024-07-13 15:45:00 Outpatient R KHANH VARGHESE [facility] [id number] [facility] 2024-07-09 16:15:00 2024-07-09 16:15:00 Outpatient R KHANH VARGHESE [facility] [id number] [facility] 2024-07-09 11:00:00 2024-07-09 11:47:48 Outpatient R KHANH [facility] [facility] [id number] [facility] 2024-07-09 11:00:00 2024-07-09 11:47:48 Routine Visit Khanh Varghese José [facility] CHAIR SPRINGER [facility] MATERNAL & CHILD HEALTH [facility] 1.2.840.114 350.1.13.10 4.2.7.2.686 [id number] [facility] 2024-07-04 18:42:00 2024-07-04 21:50:00 Outpatient X CARROLL-HUBERT S, ANNA CARROLL-HUBERT S, ANNA [facility] [id number] [facility] 2024-07-04 18:42:00 2024-07-04 21:50:00 Emergency Carroll-Hubert s, Anna [facility] 1..840.114 350.1.13.10 4.2.7.2.686 [id number] [facility] 2024-06-28 11:14:00 2024-06-28 12:55:00 Outpatient X CARROLL-HUBERT S, ANNA CARROLL-HUBERT S, ANNA [facility] [id number] [facility] 2024-06-28 11:14:00 2024-06-28 12:55:00 Emergency Carroll-Hubert s, Anna [facility] 1..840.114 350.1.13.10 4.2.7.2.686 [id number] [facility] 2024-06-23 12:30:00 2024-06-23 13:05:38 Outpatient R LASHONDA SANTOS [facility] [id number] [facility] 2024-06-23 12:30:00 2024-06-23 13:05:38 Routine Visit Lashonda Santos [facility] CHAIR SPRINGER [facility] & CHILD [facility] 1.2.840.114 350.1.13.10 4.2.7.2.686 [id number] [facility] 2024-06-19 04:13:00 2024-06-19 08:45:00 Outpatient X WARREN, MARIELA ADUM, MARIELA [facility] [id number] [facility] 2024-06-19 04:13:00 2024-06-19 08:45:00 Emergency Jehovah'S Witness, Nadim Adum, Mariela L [facility] 1.2.840.114 350.1.13.10 4.2.7.2.686 [id number] [facility] 2024-06-15 00:00:00 2024-06-15 08:45:36 Abstract Lashonda Santos [facility] CHAIR SPRINGER [facility] CHILD [facility] 1.2.840.114 350.1.13.10 4.2.7.2.686 [id number] [facility] 2024-06-09 00:00:00 2024-06-09 13:07:20 Letter (Out) Lashonda Santos [facility] CHAIR SPRINGER [facility] CHILD [facility] 1.2.840.114 350.1.13.10 4.2.7.2.686 [id number] [facility] 2024-06-09 12:30:00 2024-06-09 13:06:31 Outpatient R LASHONDA SANTOS [facility] [id number] [facility] 2024-06-09 12:30:00 2024-06-09 13:06:31 Routine Visit Lashonda Santos [facility] CHAIR SPRINGER [facility] 1.2.840.114 350.1.13.10 4.2.7.2.686 [id number] [facility] 2024-06-08 00:00:00 2024-06-08 13:49:04 Abstract Lashonda Santos [facility] CHAIR SPRINGER [facility] MATERNAL & CHILD HEALTH [facility] 1.2.840.114 350.1.13.10 4.2.7.2.686 [id number] [facility] 2024-06-04 01:03:00 2024-06-04 04:45:00 Outpatient X GUERRERO WHITAKER VIEN [facility] KASI [id number] [facility] 2024-06-04 01:03:00 2024-06-04 04:45:00 Emergency Guerrero Whitaker [facility] 1.2.840.114 350.1.13.10 4.2.7.2.686 [id number] [facility] 2024-06-03 00:00:00 2024-06-03 13:29:05 Telephone Lashonda Santos [facility] CHAIR SPRINGER [facility] CHILD [facility] 1.2.840.114 350.1.13.10 4.2.7.2.686 [id number] [facility] 2024-06-02 00:00:00 2024-06-02 08:24:06 Telephone Lashonda Santos [facility] CHAIR SPRINGER [facility] CHILD [facility] 1.2.840.114 350.1.13.10 4.2.7.2.686 [id number] [facility] 2024-06-01 12:45:00 2024-06-01 14:40:38 Outpatient R LASHONDA SANTOS [facility] [id number] [facility] 2024-06-01 12:45:00 2024-06-01 14:40:38 Initial Visit Lashonda Santos [facility] CHAIR SPRINGER [facility] MATERNAL & CHILD [facility] 1.2.840.114 350.1.13.10 4.2.7.2.686 [id number] [facility] 2024-05-27 12:15:00 2024-05-27 12:15:00 Outpatient R LASHONDA SANTOS [facility] [id number] [facility] 2024-02-09 09:15:00 2024-02-09 09:15:00 Outpatient R KHANH VARGHESE [facility] [id number] [facility] 2024-02-07 22:27:00 2024-02-07 23:41:00 Emergency X XENIA Mamadou [facility] ERT [id number] [facility] 2024-02-07 22:27:00 2024-02-07 23:41:00 Emergency Mamadou Michaels Hellen [facility] 1.2.840.114 350.1.13.10 4.2.7.2.686 [id number] [facility] 2023-12-18 14:30:00 2023-12-18 14:30:00 Outpatient R MARIELA CHEN [facility] [id number] [facility] 2023-12-17 16:09:29 2023-12-17 16:09:29 Outpatient SFA SFA [id number] Cj Guzman Orestes 2023-12-12 14:00:00 2023-12-12 14:00:00 Outpatient R MARIELA CHEN [facility] [id number] [facility] 2023-11-11 15:00:20 2023-11-11 15:00:20 Outpatient SFA SFA [id number] Cj Thomas Orestes 2023-10-30 09:20:09 2023-10-30 09:20:09 Outpatient SFA SFA [id number] Cj Thomas Orestes 2023-10-16 14:55:13 2023-10-16 14:55:13 Outpatient SFA SFA [id number] Cj Thomas Orestes 2023-10-13 10:03:24 2023-10-13 10:03:24 Outpatient SFA SFA [id number] Cj F Orestes 2023-09-03 17:01:34 2023-09-03 17:01:34 Outpatient SFA SFA [id number] Cj Carlisle 2023-08-05 17:09:08 2023-08-05 17:09:08 Outpatient SFA SFA [id number] Cj Carlisle 2023-07-11 10:26:43 2023-07-11 10:26:43 Outpatient SFA SFA [id number] Cj Carlisle 2023-07-05 12:46:18 2023-07-05 12:46:18 Outpatient SFA SFA [id number] Cj Carlisle 2023-06-04 16:14:59 2023-06-04 16:14:59 Outpatient SFA SFA [id number] Cj Carlisle 2023-05-21 14:50:27 2023-05-21 14:50:27 Outpatient SFA SFA [id number] Cj Carlisle 2023-05-07 13:29:15 2023-05-07 13:29:15 Outpatient SFA SFA [id number] Cj Guzman Orestes 2023-05-04 14:07:34 2023-05-04 14:07:34 Outpatient SFA SFA [id number] Cj Guzman Orestes 2023-04-30 15:40:18 2023-04-30 15:40:18 Outpatient SFA SFA [id number] Cj Guzman Orestes 2023-04-08 12:40:22 2023-04-08 12:40:22 Outpatient SFA SFA [id number] Cj Guzman Orestes 2023-03-28 13:58:41 2023-03-28 13:58:41 Outpatient SFA SFA [id number] Cj Guzman Orestes 2023-03-24 12:23:25 2023-03-24 12:23:25 Outpatient SFA SFA [id number] Cj Guzman Orestes 2023-03-10 14:14:23 2023-03-10 14:14:23 Outpatient SFA SFA [id number] Cj Guzman Orestes 2023-02-17 13:57:55 2023-02-17 13:57:55 Outpatient SFA SFA [id number] Cj Guzman Orestes 2022-12-31 14:01:12 2022-12-31 14:01:12 Outpatient SFA SFA [id number] Cj Carlisle 2022-10-17 13:22:30 2022-10-17 13:22:30 Outpatient SFA SFA [id number] Cj Carlisle 2022-07-04 16:27:15 2022-07-04 16:27:15 Outpatient SFA SFA [id number] Cj Carlisle 2022-06-25 09:30:43 2022-06-25 09:30:43 Outpatient SFA SFA [id number] Cj Carlisle 2022-04-04 00:00:00 2022-04-04 00:00:00 Outpatient Visit [id number]- 2rm4-2081 -x31l-797 [id number] 9yo61a1r-3 cf4-4333-a 14d-616d2c yao421 2022-03-29 00:00:00 2022-03-29 00:00:00 Outpatient Visit 98u1h7vb- 3l49-120x -aee4-f53 gt8x5m1pg [id number] 21m0y0va-3 g93-040f-v ee4-f53cf0 d1d1ff 2022-03-23 00:00:00 2022-03-23 00:00:00 Outpatient Visit x81ovf15- a4l5-3m73 -qi29-38g z6x7d444t [id number] v95jlp08-g 2i5-6a54-g d35-96ri1g 5r752r 2022-03-20 00:00:00 2022-03-20 00:00:00 Outpatient Visit 58s6635h- 499b-4139 -h904-i53 l1v654h26 [id number] 64x9935z-2 99b-4139-b 979-d90d6a 082f34 2022-03-11 00:00:00 2022-03-11 00:00:00 Outpatient Visit u9nbl635- 2tb1-9os7 -9183-471 ouv01a24g [id number] d2cml809-8 be8-4fb1-9 183-471bfe 09f04a 2022-03-05 00:00:00 2022-03-05 00:00:00 Outpatient Visit y9s25778- 7883-4b9d -fz1x-11b [id number] v6q15634-0 883-4b9d-a b6b-98l314 953bc3 2022-02-28 00:00:00 2022-02-28 00:00:00 Outpatient Visit 4pl03x81- fi26-97y0 -b8uw-7mj [id number] 2qt25b27-m k34-05w4-l 3bc-5fx899 [id number] 1857-07-11 00:00:00 2022-02-25 00:00:00 Outpatient Visit qe4041x5- 03cc-4c8d -8777-5b3 [id number] [id number] ya4754c9-6 3cc-4c8d-8 777-6j6366 20b2eb 2019-11-17 00:00:00 2019-11-17 00:00:00 Telephone Guerrero Whitaker [facility] 1.2.840.114 350.1.13.10 4.2.7.2.686 [id number] [facility] 2019-10-25 00:00:00 2019-10-25 00:00:00 Orders Only Doctor Unassigned, [place] [facility] 1.2.840.114 350.1.13.10 4.2.7.2.686 [id number] [facility] 2019-10-21 00:00:00 2019-10-21 00:00:00 Office Visit Arlnee Valentino [facility] CHAIR SPRINGER Encounter/ [id number] [facility] 2019-10-21 00:00:00 2019-10-21 00:00:00 Office Visit Arlene Valentino [facility] CHAIR SPRINGER Encounter/ [id number] [facility] 2019-10-19 00:00:00 2019-10-19 00:00:00 Office Visit Arlene Valentino [facility] CHAIR SPRINGER Encounter/ [id number] [facility] 2019-10-19 00:00:00 2019-10-19 00:00:00 [facility]/ [id number] [facility] 2019-10-19 00:00:00 2019-10-19 00:00:00 Office [facility]/ [id number] [facility] 2019-10-18 00:00:00 2019-10-18 00:00:00 Office [facility] En[facility]/ [id number] [facility] 2019-10-15 00:00:00 2019-10-15 00:00:00 Office [facility]/ [id number] [facility] 2019-10-14 00:00:00 2019-10-14 00:00:00 [facility] [id number] [facility] 2019-10-14 00:00:00 2019-10-14 00:00:00 Office Visit [facility]/ [id number] [facility] 2019-10-14 00:00:00 2019-10-14 00:00:00 Office Visit Heaven Morrow [facility] CHAIR SPRINGER Encounter/ [id number] [facility] 2019-10-14 00:00:00 2019-10-14 00:00:00 [facility] En[facility]/ [id number] [facility] 2019-10-14 00:00:00 2019-10-14 00:00:00 Office Visit Heaven Morrow Maria Castillo, Stephanie A [facility] CHAIR SPRINGER Encounter/ [id number] [facility] 2019-10-14 00:00:00 2019-10-14 00:00:00 Office Visit Yina Green [facility] CHAIR SPRINGER Encounter/ [id number] [facility] 2019-10-11 00:00:00 2019-10-11 00:00:00 Office Visit Adali Mcpherson [facility] Encounter/ [id number] [facility] 2019-10-07 00:00:00 2019-10-07 00:00:00 Office Visit Responsible Provider, Not Yet Assigned Adali Mcpherson [facility]/ [id number] [facility] 2019-10-07 00:00:00 2019-10-07 00:00:00 Office Visit Responsible Provider, Not Yet Assigned Adali Mcpherson [facility]/ [id number] [facility] 2019-10-07 00:00:00 2019-10-07 00:00:00 Office Visit Responsible Provider, Not Yet Assigned Adali Mcpherson [facility]/ [id number] [facility] 2019-10-07 00:00:00 2019-10-07 00:00:00 Office Visit Yenni Gross [facility] Mannequin Coloring Artist Encounter/ [id number] [facility] 2019-10-07 00:00:00 2019-10-07 00:00:00 Office Visit Weight Engineer, Health Advocate Student Shayy [facility] Encounter/ [id number] [facility] 2019-10-07 00:00:00 2019-10-07 00:00:00 Office Visit Colette Chowdary, Tram Dobson, Yenni Tejeda Christine [facility] CHAIR SPRINGER Encounter/ [id number] [facility] 2019-10-06 00:00:00 2019-10-06 00:00:00 Office Visit Yina Green [facility] CHAIR SPRINGER Encounter/ [id number] [facility] 2019-09-30 15:00:00 2019-09-30 15:00:00 [id number] 2019-09-16 00:00:00 2019-09-16 00:00:00 [facility] (Out[facility] 1.2.840.114 350.1.13.10 4.2.7.2.686 [id number] [facility] 2019-08-31 16:27:53 2019-08-31 16:42:53 Routine Visit Emmy Bonilla [facility] 1.2.840.114 350.1.13.10 4.2.7.2.686 [id number] [facility] 2019-08-27 15:00:00 2019-08-27 18:05:33 Outpatient GUILLERMINA ORNELAS [facility] [id number] [facility] 2019-05-03 00:00:00 2019-05-03 00:00:00 Case Management Guerrero Whitaker [facility] Building 1.2.840.114 350.1.13.10 4.2.7.2.686 [id number] [facility] 2019-04-21 00:00:00 2019-04-21 00:00:00 Case Management Guerrero Whitaker [facility] ED [facility] [facility] 1.2.840.114 350.1.13.10 4.2.7.2.686 [id number] [facility] 2019-04-21 00:00:00 2019-04-21 00:00:00 Telephone WhitakerGuerrero [facility] ED [facility] 1.2.840.114 350.1.13.10 4.2.7.2.686 [id number] [facility] 2019-04-20 00:00:00 2019-04-20 00:00:00 Telephone Guerrero Whitaker [facility] 1.2.840.114 350.1.13.10 4.2.7.2.686 [id number] [facility] 2019-04-14 15:00:27 2019-04-14 15:15:27 Primary Care Coordinator Visit 1, Adc Lab Guerrero Whitaker [facility] 1.2.840.114 350.1.13.10 4.2.7.2.686 [id number] [facility] 2019-04-14 15:00:00 2019-04-14 15:00:00 Outpatient R GUERRERO WHITAKER [facility] [id number] [facility] 2019-04-14 13:41:25 2019-04-14 14:43:27 Routine Visit Guerrero Whitaker [facility] 1.2.840.114 350.1.13.10 4.2.7.2.686 [id number] [facility] 2019-04-14 00:00:00 2019-04-14 00:00:00 Letter (Out) Guerrero Whitaker [facility] 1.2.840.114 350.1.13.10 4.2.7.2.686 [id number] [facility] 2019-04-14 00:00:00 2019-04-14 00:00:00 Orders Only Doctor Unassigned, [place] [facility] 1.2.840.114 350.1.13.10 4.2.7.2.686 [id number] [facility] 2019-04-07 00:00:00 2019-04-07 00:00:00 [facility] 1.2.840.114 350.1.13.10 4.2.7.2.686 [id number] [facility] 2019-04-01 00:00:00 2019-04-01 00:00:00 Telephone [facility] 1.2.840.114 350.1.13.10 4.2.7.2.686 [id number] [facility] 2019-03-17 10:12:58 2019-03-24 08:59:00 Primary Care Coordinator Visit 1, Adc Lab Guerrero Whitaker [facility] 1.2.840.114 350.1.13.10 4.2.7.2.686 [id number] [facility] 2019-03-17 10:15:00 2019-03-17 10:15:00 Outpatient R GUERRERO WHITAKER [facility] [id number] [facility] 2019-03-17 08:58:48 2019-03-17 10:02:46 Initial Visit [facility]errero Whitaker [facility] 1.2.840.114 350.1.13.10 4.2.7.2.686 [id number] [facility] Results Test Description Test Time Test Comments Results Result Co mments Source [facility] Cord [id number] 04:08:38* Test Item Value Reference Range Interpretation Comme nts VENOUS BASE EXCESS, CORD (te st code = 2922395074) -1.2 mEq/L VENOUS PH, CORD (test code = 6711614217) 7.41 7.25-7.45 VENOUS PC02, CORD (test code = 1375054718) 37 27-49 VENOUS PO2, CORD (test code = 8139195955) 29 17-41 VENOUS BICARBONATE, CORD (te st code = 4225406830) 23 12-29 [facility] [id number] 04:08:13* Test Item Value Reference Range Interpretation Comme nts BASE EXCESS, CORD (test code = 8101528218) -4.0 mEq/L AC PH, CORD (BEAKER) (test c ode = 1688695284) 7.33 7.18-7.38 PC02, CORD (test code = 7211453936) 42 32-66 PO2, CORD (test code = 6213137123) 34 10-30 H BICARBONATE, CORD (test code = 4482978136) 22 17-27 Lab Interpretation (test cod e = 87659-5) Abnormal [facility] Neuraxial [id number] 16:04:00 Logan Garcia MD ? ? 07/22/2024 10:54 AM Central Neuraxial Block Date/Time: 07/22/2024 10:04 AM Performed by: Logan Garcia MDAuthorized by: Miguel Carreno MD ?Patient Location: OtherReason for Block: Labor analgesia, OB request, Patient request, Post-op pain management and Surgical anesthesiaStaff: ?Anesthesiologist: Miguel Carreno MD ?Resident/LOCAL COORDINATOR: Logan Garcia MD ?Performed by: resident/CRNAPreanesthetic Checklist: [...] and MICHELLE saline ?Guidance with: landmark technique}Epidural/Spinal [place] and/or Catheter: ?Epidural/Spinal Kit: BBraun ?Needle Type: [...] Epidural expectations; PCEA explained and fall precautions given.[facility] URINALYSIS W SPECIFIC [id number] 21:18:00* Test Item Value Reference Range Interpretation [...] POCT U APPEAR (test code = 3267) [facility] URINALYSIS W SPECIFIC [id number] 17:22:00* Test Item Value Reference Range Interpretation [...] U APPEAR (test code = 3267) ..... [facility] CampusPOCT URINALYSIS W SPECIFIC [id number] 18:25:00* Test Item Value Reference Range Interpretation [...] U APPEAR (test code = 3267) . [facility] CampusUS PELVIS > 14 [id number] 13:28:48ORDERING PHYSICIAN: MARIELA CHEN CLINICAL HISTORY: LEAKING [...] 618 cm, 34 weeks 6 days.EFW: 2727 [facility] POCT URINALYSIS W SPECIFIC [id number] 17:25:00* Test Item Value Reference Range Interpretation [...] U APPEAR (test code = 3267) . [facility] CampusRUBELLA SCREEN (WES) [id number] 17:50:58 * Test Item Value Reference Range Interpretation Comme [facility] Rubella screen IgG (test code = 4765037112) Negative Negative ARNULFO (test code = ARNULFO) Positive - Indicat es the patient was exposed to Rubella through infection or vaccination.Negative - Indicates the patient could be susceptible to Rubella infection.Equivocal - A second specimen should be sent. [facility] CampusVZV ANTIBODY [id number] 17:50:58* Test Item Value Reference Range Interpretation Comme [facility] VZV IgG antibody (test code = 61895-8) Equivocal Negative ARNULFO (test code = ARNULFO) Positive - Indicat es the patient was exposed to VZV through infection or vaccination.Negative - Indicates the patient could be susceptible to VZV infection.Equivocal - A second specimen should be sent for testing. [facility] CampusGALV ONLY - SYPHILIS [id number]/[id number] 16:03:23* Test Item Value Reference Range Interpretation Comme nts Syphilis IgG/IgM (test code = 33691-1) Non-reactive Non-reactive ARNULFO (test code = ARNULFO) Non-reactive - No serologic evidence of T. pallidum infection. Cannot exclude incubating or early syphilis. Submit a second specimen in 2-4 weeks if syphilis is clinically suspected. Equivocal - Further testing to follow. Reactive - Further testing to follow. Lab Interpretation (test code = 09196-2) Normal [facility] CampusHI 1/2 AG-AB WITH [id number] 10:09:25* Test Item Value Reference Range Interpretation Comme nts HIV Semi-quantitative (test code = 84706-4) 0.10 Negative ARNULFO (test code = ARNULFO) Non-reactive for HIV-1 antigen and HIV-1/HIV-2 antibodies. ?No laboratory evidence of HIV infection. ?Repeat in 2-4 weeks if acute HIV infection is suspected. [facility] CampusHCV [id number] 08:51:31* Test Item Value Reference Range Interpretation Comme nts HCV Ab (test code = 58305-5) Negative HCV Semi-Quantitative (test code = 66068-7) 0.01 [facility] CampusHEPATITIS B SURFACE [id number] 08:33:53 * Test Item Value Reference Range Interpretation Comme nts HBsAg Semi-Quantitative (ruslan t code = 5195-3) 0.12 Negative [facility] CampusGlucose 1 Hour Post [id number] 05:51:36* Test Item Value Reference Range Interpretation Comme nts GLUC 1 HR (test code = 6226542930) 89 mg/dL 120-170 L Lab Interpretation (test cod e = 57157-9) Abnormal [facility] CampusCBC WITH [id number] 05:33:31* Test Item Value Reference Range Interpretation [...] 32.5 g/dL 31.6-35.1 RDW-SD (test code = 05797-0) 36.8 fL 39.0-49.9 L RDW-CV (test code = 788-0) 12.7 % 12.0-15.5 PLT (test code = 777-3) 404 166-358 H MPV (test code = 39943-6) 9.2 fL 9.5-12.9 L NRBC/100 WBC (test code = 8261379325) 0.0 0.0-10.0 NRBC x10^3 (test code = 7382232880) See_Comment [Automated messa ge] The system which generated this result transmitted reference range: 10*3/?L. The reference range was not used to interpret this result as normal/abnormal. GRAN MAT (NEUT) % (test code = 770-8) 75.0 % IMM GRAN % (test code = 7915765937) 0.50 % LYMPH % (test code = 736-9) 16.1 % MONO % (test code = 5905-5) 7.5 % EOS % (test code = 713-8) 0.6 % BASO % (test code = 706-2) 0.3 % GRAN MAT x10^3(ANC) (test code = 0867794363) 8.23 10*3/uL 1.88-7.09 H IMM GRAN x10^3 (test code = 9163616313) 0.05 10*3/uL 0.00-0.06 LYMPH x10^3 (test code = 731-0) 1.76 10*3/uL 1.32-3.29 MONO x10^3 (test code = 742-7) 0.82 10*3/uL 0.33-0.92 EOS x10^3 (test code = 711-2) 0.07 10*3/uL 0.03-0.39 BASO x10^3 (test code = 704-7) 0.03 10*3/uL 0.01-0.07 Lab Interpretation (test code = 93430-6) [facility]normal [facility] [id number] 05:01:00 * Test Item Value Reference Range Interpretation Comme nts ABO & RH (test code = 20) A POSITIVE IAT (test code = 1185) Negative [facility] [id number] 18:09:00* Test Item Value Reference Range Interpretation Comme nts POCT PREG (test code = 1605) Positive On board controls acceptable with C Line (test code = 3574) Yes POCT PREG LOT # (test code = 3575) POCT PREG TEST DATE ( test code = 3576) [facility] Urinalysis w/o Specific [id number] 18:09:00* Test Item Value Reference Range Interpretation [...] = 3257) neg Negative - Negati ve [facility] CampusCHLAMYDIA, NAAT, [id number] 12:29:30* Test Item Value Reference Range Interpretation Comme nts CHLAMYDIA, NAAT, URINE (test code = 12953) POSITIVE NEGATIVE A Testing is perfo rmed with Elpidio MIRA 6800/8800 systems usingreal-time polymerase chain reaction (PCR) method. GONORRHEA, NAAT, [id number] 12:29:30* Test Item Value Reference Range Interpretation Comme nts GONORRHEA, NAAT, URINE (test code = 96168) NEGATIVE NEGATIVE Testing is perfo rmed with Elpidio MIRA 6800/8800 systems usingreal-time polymerase chain reaction (PCR) method. A negative result does not exclude low level infection, specimensampling error, or collection error. RPR REFLEX TO T. PALLIDUM - [id number] 04:03:32* Test Item Value Reference Range Interpretation Comme nts RPR (test code = 82902) NON-REACTIVE NON-REACTIVE RPR TITER (test code = 3500) NOT INDIC. TITER NOT INDIC. HIV 1/2 4TH GEN, RFLX [id number] 04:01:26* Test Item Value Reference Range Interpretation Comme nts HIV 1/2 4TH GEN, RFLX CONF ( test code = 3514) NON-REACTIVE NON-REACTIVE HEPATITIS PANEL, [id number] 04:01:26* Test Item Value Reference Range Interpretation Comme nts HEPATITIS A IgM (test code = 80279) NON-REACTIVE NON-REACTIVE HEPATITIS B CORE IgM (test code = 4644) NON-REACTIVE NON-REACTIVE HEPATITIS B SURF AG (test code = 2739) NON-REACTIVE NON-REACTIVE HEPATITIS C ANTIBODY (test code = 4675) NON-REACTIVE NON-REACTIVE INTERPRETATION HEPATITIS A: (test code = 2552) (NOTE) Hepatitis A sero logy shows no evidence of acute hepatitis A. INTERPRETATION HEPATITIS B: (test code = 34771) (NOTE) Hepatitis B sero logy shows no evidence of acute hepatitis B andno indication of exposure to hepatitis B virus in the previous huyen eight months. INTERPRETATION HEPATITIS C: (test code = 75746) (NOTE) Hepatitis C sero logy shows no evidence of exposure to hepatitisC virus at this time. It can take up to 12 months after exposure tothe hepatitis C virus for antibodies to become detectable in the blood in certain patients. UNLESS OTHERWISE INDICATED, ALL TESTING PERFORMED AT [facility] [address] [place] [address] FLUOROSCOPE OPERATOR: SHAYY SANTOS M.D. CLIA NUMBER [id number] [facility] [place]. [id number] CULTURE, ROUTINE SENSITIVITY ON [id number] 14:09:05SPECIMEN NUMBER: [id number] CULTURE, ROUTINE SENSITIVITY ON ALL SPECIMEN NUMBER: [id number] SOURCE: OTHER SOURCE REPORT STATUS: FINAL FINAL REPORT: 07/09/2023 NO SPECIMEN RECEIVED FOR TESTING. CHARGESDELETED.HIV 1/2 4TH GEN, RFLX [id number] 02:08:57* Test Item Value Reference Range Interpretation Comme nts HIV 1/2 4TH GEN, RFLX CONF ( test code = 3514) NON-REACTIVE NON-REACTIVE HEPATITIS PANEL, [id number] 02:08:57* Test Item Value Reference Range Interpretation Comme nts HEPATITIS A IgM (test code = 99241) NON-REACTIVE NON-REACTIVE HEPATITIS B CORE IgM (test code = 4644) NON-REACTIVE NON-REACTIVE HEPATITIS B SURF AG (test code = 2739) NON-REACTIVE NON-REACTIVE HEPATITIS C ANTIBODY (test code = 4675) NON-REACTIVE NON-REACTIVE INTERPRETATION HEPATITIS A: (test code = 2552) (NOTE) Hepatitis A serology shows no evidence of acute hepatitis A. INTERPRETATION HEPATITIS B: (test code = 71448) (NOTE) Hepatitis B serology shows no evidence of acute hepatitis B andno indication of exposure to hepatitis B virus in the previous huyen eight months. INTERPRETATION HEPATITIS C: (test code = 86292) (NOTE) Hepatitis C serology shows no evidence of exposure to hepatitisC virus at this time. It can take up to 12 months after exposure tothe hepatitis C virus for antibodies to become detectable in the blood in certain patients. [id number] 23:37:07* Test Item Value Reference Range Interpretation Comme nts RPR RESULT (test code = 3501) NON-REACTIVE NON-REACTIVE RPR TITER (test code = 3500) NOT INDIC. TITER NOT INDIC. CT/NG, NAAT, [id number] 14:03:18* Test Item Value Reference Range Interpretation Comme nts CHLAMYDIA, NAAT, URINE (test code = 29157) NEGATIVE NEGATIVE Testing is perfo rmed with Elpidio MIRA 6800/8800 systems usingreal-time polymerase chain reaction (PCR) method. A negative result does not exclude low level infection, specimensampling error, or collection error. GONORRHEA, NAAT, URINE (test code = 42897) NEGATIVE NEGATIVE Testing is perfo rmed with Elpidio MIRA 6800/8800 systems usingreal-time polymerase chain reaction (PCR) method. A negative result does not exclude low level infection, specimensampling error, or collection error. UNLESS OTHERWISE INDICATED, ALL TESTING PERFORMED AT [facility] [address] [place] [address] FLUOROSCOPE OPERATOR: SHAYY SANTOS M.D. [place] NUMBER [id number] [facility] [place]. [id number] CULTURE, [id number] 11:36:54SPECIMEN NUMBER: [id number] CULTURE, URINE SPECIMEN NUMBER: [id number] SPECIMEN COMMENT: URINE SOURCE: URINE REPORT STATUS: FINAL FINAL REPORT: 07/07/2023 50-100,000 CFU/ML UROGENITAL LINDSAY PRESENT NO C OMMON PATHOGENSTRICHOMONAS, NAAT, [id number] 16:23:16* Test Item Value Reference Range Interpretation Comme nts TRICHOMONAS, NAAT, URINE (test code = 88322) NEGATIVE NEGATIVE Testing is perfo rmed with Elpidio MIRA 6800/8800 method usingreal-time polymerase chain reaction (PCR) method. A negative result does not exclude low level infection, specimensampling error, or collection error. CHLAMYDIA, NAAT, [id number] 16:22:13* Test Item Value Reference Range Interpretation Comme nts CHLAMYDIA, NAAT, URINE (test code = 85484) POSITIVE NEGATIVE A Testing is perfo rmed with Elpidio MIRA 6800/8800 systems usingreal-time polymerase chain reaction (PCR) method. GONORRHEA, NAAT, [id number] 16:22:13* Test Item Value Reference Range Interpretation Comme nts GONORRHEA, NAAT, URINE (test code = 87313) NEGATIVE NEGATIVE Testing is perfo rmed with Elpidio MIRA 6800/8800 systems usingreal-time polymerase chain reaction (PCR) method. A negative result does not exclude low level infection, specimensampling error, or collection error. RPR REFLEX TO T. PALLIDUM - [id number] 05:31:29* Test Item Value Reference Range Interpretation Comme nts RPR (test code = 88054) NON-REACTIVE NON-REACTIVE RPR TITER (test code = 3500) NOT INDIC. TITER NOT INDIC. HIV 1/2 4TH GEN, RFLX [id number] 05:05:42* Test Item Value Reference Range Interpretation Comme nts HIV 1/2 4TH GEN, RFLX CONF ( test code = 3514) NON-REACTIVE NON-REACTIVE HEPATITIS PANEL, [id number] 05:05:42* Test Item Value Reference Range Interpretation Comme nts HEPATITIS A IgM (test code = 52277) NON-REACTIVE NON-REACTIVE HEPATITIS B CORE IgM (test code = 4644) NON-REACTIVE NON-REACTIVE HEPATITIS B SURF AG (test code = 2739) NON-REACTIVE NON-REACTIVE HEPATITIS C ANTIBODY (test code = 4675) NON-REACTIVE NON-REACTIVE INTERPRETATION HEPATITIS A: (test code = 2552) (NOTE) Hepatitis A sero logy shows no evidence of acute hepatitis A. INTERPRETATION HEPATITIS B: (test code = 32293) (NOTE) Hepatitis B sero logy shows no evidence of acute hepatitis B andno indication of exposure to hepatitis B virus in the previous huyen eight months. INTERPRETATION HEPATITIS C: (test code = 06409) (NOTE) Hepatitis C sero logy shows no evidence of exposure to hepatitisC virus at this time. It can take up to 12 months after exposure tothe hepatitis C virus for antibodies to become detectable in the blood in certain patients. [facility] has important pathology staff changes effective 10/16/2022. New pathology staff will provide uninterrupted, excellent patient care and clinical consultation. See URL: [email or web address]. UNLESS OTHERWISE INDICATED, ALL TESTING PERFORMED AT [facility], [facility]. [address] [place], [place] [address] FLUOROSCOPE OPERATOR: CAMPOS ALVARENGA M.D. CLIA NUMBER [id number] [facility] [place]. [id number] CHLAMYDIA, NAAT, [id number] 13:11:20* Test Item Value Reference Range Interpretation Comme nts CHLAMYDIA, NAAT (test code = 38507) NEGATIVE NEGATIVE IMPORTANT NO KWAKU: SEE ANNOUNCEMENT AT [email or web address] Real Imaging HoldingsobasUrineKit Note: Assay methodology is nucleic acid amplification by gear milling machine set up operator mediated amplification (TMA) utilizing the Aptima Combo 2 Assay. GONORRHEA, NAAT, [id number] 13:11:20* Test Item Value Reference Range Interpretation Comme nts GONORRHEA, NAAT (test code = 61152) NEGATIVE NEGATIVE IMPORTANT NO KWAKU: SEE ANNOUNCEMENT AT [email or web address] heCobasUrineKit Note: Assay methodology is nucleic acid amplification by gear milling machine set up operator mediated amplification (TMA) utilizing the Aptima Combo 2 Assay. UNLESS OTHERWISE INDICATED, ALL TESTING PERFORMED [facility], [facility]. [address] [place] [address] FLUOROSCOPE OPERATOR: CAMPOS ALVARENGA M.D. CLIA NUMBER [id number] [facility] [place]. [id number] CHLAMYDIA, AMPLIFIED, [id number] 00:00:00* Test Item Value Reference Range Interpretation Comme nts CHLAMYDIA, NAAT (test code = 65082) NEGATIVE GC, AMPLIFIED, [id number] 00:00:00* Test Item Value Reference Range Interpretation Comme nts GONORRHEA, NAAT (test code = 55642) NEGATIVE CHLAMYDIA, AMPLIFIED, [id number] 00:00:00* Test Item Value Reference Range Interpretation Comme nts CHLAMYDIA, NAAT (test code = 99661) NEGATIVE GC, AMPLIFIED, [id number] 00:00:00* Test Item Value Reference Range Interpretation Comme nts GONORRHEA, NAAT (test code = 53708) NEGATIVE CHLAMYDIA, AMPLIFIED, [id number] 00:00:00* Test Item Value Reference Range Interpretation Comme nts CHLAMYDIA, NAAT (test code = 69724) NEGATIVE GC, AMPLIFIED, [id number] 00:00:00* Test Item Value Reference Range Interpretation Comme nts GONORRHEA, NAAT (test code = 96353) NEGATIVE CHLAMYDIA, AMPLIFIED, [id number] 00:00:00* Test Item Value Reference Range Interpretation Comme nts CHLAMYDIA, NAAT (test code = 32566) NEGATIVE GC, AMPLIFIED, [id number] 00:00:00* Test Item Value Reference Range Interpretation Comme nts GONORRHEA, NAAT (test code = 50043) NEGATIVE CHLAMYDIA, AMPLIFIED, [id number] 00:00:00* Test Item Value Reference Range Interpretation Comme nts CHLAMYDIA, NAAT (test code = 79916) NEGATIVE GC, AMPLIFIED, [id number] 00:00:00* Test Item Value Reference Range Interpretation Comme nts GONORRHEA, NAAT (test code = 12553) NEGATIVE CHLAMYDIA, AMPLIFIED, [id number] 00:00:00* Test Item Value Reference Range Interpretation Comme nts CHLAMYDIA, NAAT (test code = 51126) NEGATIVE GC, AMPLIFIED, [id number] 00:00:00* Test Item Value Reference Range Interpretation Comme nts GONORRHEA, NAAT (test code = 67920) NEGATIVE CHLAMYDIA, AMPLIFIED, [id number] 00:00:00* Test Item Value Reference Range Interpretation Comme nts CHLAMYDIA, NAAT (test code = 74236) NEGATIVE GC, AMPLIFIED, [id number] 00:00:00* Test Item Value Reference Range Interpretation Comme nts GONORRHEA, NAAT (test code = 32493) NEGATIVE CHLAMYDIA, AMPLIFIED, [id number] 00:00:00* Test Item Value Reference Range Interpretation Comme nts CHLAMYDIA, NAAT (test code = 49205) NEGATIVE GC, AMPLIFIED, [id number] 00:00:00* Test Item Value Reference Range Interpretation Comme nts GONORRHEA, NAAT (test code = 80332) NEGATIVE CT/NG, NAAT, [id number] 19:10:11* Test Item Value Reference Range Interpretation Comme nts GONORRHEA, NAAT (test code = 42558) NEGATIVE NEGATIVE IMPORTANT NO KWAKU: SEE ANNOUNCEMENT AT [email or web address] [email or web address] Note: Assay methodology is nucleic acid amplification by gear milling machine set up operator mediated amplification (TMA) utilizing the Aptima Combo 2 Assay. CHLAMYDIA, NAAT (test code = 61478) POSITIVE NEGATIVE A IMPORTANT NO KWAKU: SEE ANNOUNCEMENT AT [email or web address] Nonlinear DynamicssUMedmonkKit Note: Assay methodology is nucleic acid amplification by gear milling machine set up operator mediated amplification (TMA) utilizing the Aptima Combo 2 Assay. UNLESS OTHERWISE INDICATED, [facility] TEST[facility], [facility]. [address] [place] [address] FLUOROSCOPE OPERATOR: CAMPOS ALVARENGA M.D. CLIA NUMBER [id number] [facility] [place]. [id number] GC AND CHLAMYDIA, AMPLIFIED, [id number] 00:00:00* Test Item Value Reference Range Interpretation Comme nts GONORRHEA, NAAT (test code = 41811) NEGATIVE CHLAMYDIA, NAAT (test code = 56037) POSITIVE GC AND CHLAMYDIA, AMPLIFIED, [id number] 00:00:00* Test Item Value Reference Range Interpretation Comme nts GONORRHEA, NAAT (test code = 87313) NEGATIVE CHLAMYDIA, NAAT (test code = 52221) POSITIVE GC AND CHLAMYDIA, AMPLIFIED, [id number] 00:00:00* Test Item Value Reference Range Interpretation Comme nts GONORRHEA, NAAT (test code = 33267) NEGATIVE CHLAMYDIA, NAAT (test code = 77162) POSITIVE GC AND CHLAMYDIA, AMPLIFIED, [id number] 00:00:00* Test Item Value Reference Range Interpretation Comme nts GONORRHEA, NAAT (test code = 69573) NEGATIVE CHLAMYDIA, NAAT (test code = 89345) POSITIVE GC AND CHLAMYDIA, AMPLIFIED, [id number] 00:00:00* Test Item Value Reference Range Interpretation Comme nts GONORRHEA, NAAT (test code = 11453) NEGATIVE CHLAMYDIA, NAAT (test code = 70353) POSITIVE GC AND CHLAMYDIA, AMPLIFIED, [id number] 00:00:00* Test Item Value Reference Range Interpretation Comme nts GONORRHEA, NAAT (test code = 23290) NEGATIVE CHLAMYDIA, NAAT (test code = 62327) POSITIVE GC AND CHLAMYDIA, AMPLIFIED, [id number] 00:00:00* Test Item Value Reference Range Interpretation Comme nts GONORRHEA, NAAT (test code = 90738) NEGATIVE CHLAMYDIA, NAAT (test code = 98461) POSITIVE GC AND CHLAMYDIA, AMPLIFIED, [id number] 00:00:00* Test Item Value Reference Range Interpretation Comme nts GONORRHEA, NAAT (test code = 12486) NEGATIVE CHLAMYDIA, NAAT (test code = 86726) POSITIVE HIV AB/AG COMBO RFLX [id number] 00:00:00* Test Item Value Reference Range Interpretation Comme nts HIV 1/2 4TH GEN, RFLX CONF ( test code = 3514) NON-REACTIVE ACUTE HEPATITIS [id number] 00:00:00* Test Item Value Reference Range Interpretation Comme nts HEPATITIS A IgM (test code = 08461) NON-REACTIVE HEPATITIS B CORE IgM (test c ode = 4644) NON-REACTIVE HEPATITIS B SURF AG (test co de = 1339) NON-REACTIVE HEPATITIS C ANTIBODY (test c ode = 4691) NON-REACTIVE INTERPRETATION HEPATITIS A: (test code = 2552) (NOTE) INTERPRETATION HEPATITIS B: (test code = 99157) (NOTE) INTERPRETATION HEPATITIS C: (test code = 00201) (NOTE) GC, AMPLIFIED, [id number] 00:00:00* Test Item Value Reference Range Interpretation Comme nts GONORRHEA, NAAT (test code = 60112) NEGATIVE CHLAMYDIA, AMPLIFIED, [id number] 00:00:00* Test Item Value Reference Range Interpretation Comme nts CHLAMYDIA, NAAT (test code = 37469) POSITIVE HIV AB/AG COMBO RFLX [id number] 00:00:00* Test Item Value Reference Range Interpretation Comme nts HIV 1/2 4TH GEN, RFLX CONF ( test code = 3514) NON-REACTIVE ACUTE HEPATITIS [id number] 00:00:00* Test Item Value Reference Range Interpretation Comme nts HEPATITIS A IgM (test code = 61666) NON-REACTIVE HEPATITIS B CORE IgM (test c ode = 4644) NON-REACTIVE HEPATITIS B SURF AG (test co de = 2739) NON-REACTIVE HEPATITIS C ANTIBODY (test c ode = 4675) NON-REACTIVE INTERPRETATION HEPATITIS A: (test code = 2552) (NOTE) INTERPRETATION HEPATITIS B: (test code = 82331) (NOTE) INTERPRETATION HEPATITIS C: (test code = 15337) (NOTE) GC, AMPLIFIED, [id number] 00:00:00* Test Item Value Reference Range Interpretation Comme nts GONORRHEA, NAAT (test code = 70222) NEGATIVE CHLAMYDIA, AMPLIFIED, [id number] 00:00:00* Test Item Value Reference Range Interpretation Comme nts CHLAMYDIA, NAAT (test code = 63832) POSITIVE HIV AB/AG COMBO RFLX [id number] 00:00:00* Test Item Value Reference Range Interpretation Comme nts HIV 1/2 4TH GEN, RFLX CONF ( test code = 3514) NON-REACTIVE ACUTE HEPATITIS [id number] 00:00:00* Test Item Value Reference Range Interpretation Comme nts HEPATITIS A IgM (test code = 46025) NON-REACTIVE HEPATITIS B CORE IgM (test c ode = 4644) NON-REACTIVE HEPATITIS B SURF AG (test co de = 2739) NON-REACTIVE HEPATITIS C ANTIBODY (test c ode = 4675) NON-REACTIVE INTERPRETATION HEPATITIS A: (test code = 2552) (NOTE) INTERPRETATION HEPATITIS B: (test code = 33836) (NOTE) INTERPRETATION HEPATITIS C: (test code = 08419) (NOTE) GC, AMPLIFIED, [id number] 00:00:00* Test Item Value Reference Range Interpretation Comme nts GONORRHEA, NAAT (test code = 39746) NEGATIVE CHLAMYDIA, AMPLIFIED, [id number] 00:00:00* Test Item Value Reference Range Interpretation Comme nts CHLAMYDIA, NAAT (test code = 39622) POSITIVE HIV AB/AG COMBO RFLX [id number] 00:00:00* Test Item Value Reference Range Interpretation Comme nts HIV 1/2 4TH GEN, RFLX CONF ( test code = 3514) NON-REACTIVE ACUTE HEPATITIS [id number] 00:00:00* Test Item Value Reference Range Interpretation Comme nts HEPATITIS A IgM (test code = 82547) NON-REACTIVE HEPATITIS B CORE IgM (test c ode = 4644) NON-REACTIVE HEPATITIS B SURF AG (test co de = 2739) NON-REACTIVE HEPATITIS C ANTIBODY (test c ode = 4675) NON-REACTIVE INTERPRETATION HEPATITIS A: (test code = 2552) (NOTE) INTERPRETATION HEPATITIS B: (test code = 50046) (NOTE) INTERPRETATION HEPATITIS C: (test code = 47147) (NOTE) GC, AMPLIFIED, [id number] 00:00:00* Test Item Value Reference Range Interpretation Comme nts GONORRHEA, NAAT (test code = 83256) NEGATIVE CHLAMYDIA, AMPLIFIED, [id number] 00:00:00* Test Item Value Reference Range Interpretation Comme nts CHLAMYDIA, NAAT (test code = 46066) POSITIVE HIV AB/AG COMBO RFLX [id number] 00:00:00* Test Item Value Reference Range Interpretation Comme nts HIV 1/2 4TH GEN, RFLX CONF ( test code = 3514) NON-REACTIVE ACUTE HEPATITIS [id number] 00:00:00* Test Item Value Reference Range Interpretation Comme nts HEPATITIS A IgM (test code = 73126) NON-REACTIVE HEPATITIS B CORE IgM (test c ode = 4644) NON-REACTIVE HEPATITIS B SURF AG (test co de = 2739) NON-REACTIVE HEPATITIS C ANTIBODY (test c ode = 4675) NON-REACTIVE INTERPRETATION HEPATITIS A: (test code = 2552) (NOTE) INTERPRETATION HEPATITIS B: (test code = 79365) (NOTE) INTERPRETATION HEPATITIS C: (test code = 27563) (NOTE) GC, AMPLIFIED, [id number] 00:00:00* Test Item Value Reference Range Interpretation Comme nts GONORRHEA, NAAT (test code = 43044) NEGATIVE CHLAMYDIA, AMPLIFIED, [id number] 00:00:00* Test Item Value Reference Range Interpretation Comme nts CHLAMYDIA, NAAT (test code = 31591) POSITIVE HIV AB/AG COMBO RFLX [id number] 00:00:00* Test Item Value Reference Range Interpretation Comme nts HIV 1/2 4TH GEN, RFLX CONF ( test code = 3514) NON-REACTIVE ACUTE HEPATITIS [id number] 00:00:00* Test Item Value Reference Range Interpretation Comme nts HEPATITIS A IgM (test code = 66489) NON-REACTIVE HEPATITIS B CORE IgM (test c ode = 4644) NON-REACTIVE HEPATITIS B SURF AG (test co de = 2739) NON-REACTIVE HEPATITIS C ANTIBODY (test c ode = 4675) NON-REACTIVE INTERPRETATION HEPATITIS A: (test code = 2552) (NOTE) INTERPRETATION HEPATITIS B: (test code = 54352) (NOTE) INTERPRETATION HEPATITIS C: (test code = 21325) (NOTE) GC, AMPLIFIED, [id number] 00:00:00* Test Item Value Reference Range Interpretation Comme nts GONORRHEA, NAAT (test code = 74362) NEGATIVE CHLAMYDIA, AMPLIFIED, [id number] 00:00:00* Test Item Value Reference Range Interpretation Comme nts CHLAMYDIA, NAAT (test code = 83480) POSITIVE HIV AB/AG COMBO RFLX [id number] 00:00:00* Test Item Value Reference Range Interpretation Comme nts HIV 1/2 4TH GEN, RFLX CONF ( test code = 3514) NON-REACTIVE ACUTE HEPATITIS [id number] 00:00:00* Test Item Value Reference Range Interpretation Comme nts HEPATITIS A IgM (test code = 98405) NON-REACTIVE HEPATITIS B CORE IgM (test c ode = 4644) NON-REACTIVE HEPATITIS B SURF AG (test co de = 2739) NON-REACTIVE HEPATITIS C ANTIBODY (test c ode = 4675) NON-REACTIVE INTERPRETATION HEPATITIS A: (test code = 2552) (NOTE) INTERPRETATION HEPATITIS B: (test code = 15491) (NOTE) INTERPRETATION HEPATITIS C: (test code = 51189) (NOTE) HIV AB/AG COMBO RFLX [id number] 00:00:00* Test Item Value Reference Range Interpretation Comme nts HIV 1/2 4TH GEN, RFLX CONF ( test code = 3514) NON-REACTIVE GC, AMPLIFIED, [id number] 00:00:00* Test Item Value Reference Range Interpretation Comme nts GONORRHEA, NAAT (test code = 96957) NEGATIVE ACUTE HEPATITIS [id number] 00:00:00* Test Item Value Reference Range Interpretation Comme nts HEPATITIS A IgM (test code = 79269) NON-REACTIVE HEPATITIS B CORE IgM (test c ode = 4644) NON-REACTIVE HEPATITIS B SURF AG (test co de = 2739) NON-REACTIVE HEPATITIS C ANTIBODY (test c ode = 4675) NON-REACTIVE INTERPRETATION HEPATITIS A: (test code = 2552) (NOTE) INTERPRETATION HEPATITIS B: (test code = 52175) (NOTE) INTERPRETATION HEPATITIS C: (test code = 13333) (NOTE) GC, AMPLIFIED, [id number] 00:00:00* Test Item Value Reference Range Interpretation Comme nts GONORRHEA, NAAT (test code = 62294) NEGATIVE CHLAMYDIA, AMPLIFIED, [id number] 00:00:00* Test Item Value Reference Range Interpretation Comme nts CHLAMYDIA, NAAT (test code = 13265) POSITIVE CHLAMYDIA, AMPLIFIED, [id number] 00:00:00* Test Item Value Reference Range Interpretation Comme nts CHLAMYDIA, NAAT (test code = 91733) POSITIVE erythrocyte (RBC) [id number] 15:42:00* Test Item Value Reference Range Interpretation Comme nts erythrocyte (RBC) count (ruslan t code = 67) 4.30 X10E6/UL 3.77-5.28 [facility], [id number] 15:42:00* Test Item Value Reference Range Interpretation Comme nts leukocyte count, blood (test code = 68) 9.7 X10E3/UL 3.4-10.8 [facility]hepatitis B surface [id number] 15:42:00* Test Item Value Reference Range Interpretation Comme nts hepatitis B surface antigen (test code = 79) Negative Negative [facility] HealthRh [id number] 15:42:00* Test Item Value Reference Range Interpretation Comme nts Rh antibody (test code = 256) Negative Negative [facility]blood glucose, 1 hour after 50 gm oral [id number] 15:42:00* Test Item Value Reference Range Interpretation Comme nts blood glucose, 1 hour after 50 gm oral glucose (test code = 1039) 111 mg/dL 65-139 [facility] HealthHIV-CMIA (Chemiluminescent Microparticle Immuno Assay) 2019-10-14 15:42:00* Test Item Value Reference Range Interpretation Comme nts HIV-CMIA (Chemiluminescent Microparticle Immuno Assay) (test code = 747696) Non Reactive Non Reactive [facility] Healthrapid plasma reagin antibody, [id number] 15:42:00* Test Item Value Reference Range Interpretation Comme nts rapid plasma reagin antibody , serum (test code = 308) Non Reactive Non Reactive [facility] Healthrubella antibody, serum, [id number] 15:42:00* Test Item Value Reference Range Interpretation Comme nts rubella antibody, serum, IgG (test code = 81) 1.33 Immune >0.99 [facility] HealthRh [id number] 15:42:00* Test Item Value Reference Range Interpretation Comme nts Rh antigen (test code = 255) Positive [facility] HealthABO blood [id number] 15:42:00* Test Item Value Reference Range Interpretation Comme nts ABO blood group (test code = 116) A [facility] HealthNeisseria gonorrhoeae DNA [id number] 15:42:00* Test Item Value Reference Range Interpretation Comme nts Neisseria gonorrhoeae DNA pr obe (test code = 10775-8) Negative Negative [facility]chlamydia DNA [id number] 15:42:00* Test Item Value Reference Range Interpretation Comme nts chlamydia DNA probe (test co de = 82362-4) Negative Negative [facility] Healthimmature granulocytes, percentage of total cells, blood 2019-10-14 15:42:00* Test Item Value Reference Range Interpretation Comme nts immature granulocytes, perce ntage of total cells, blood (test code = 963706) 0 % [facility] Healthbasophil count, [id number] 15:42:00* Test Item Value Reference Range Interpretation Comme nts basophil count, absolute (te st code = 06172) 0.0 x10E3/uL 0.0-0.3 [facility] HealthEosinophil Absolute [id number] 15:42:00* Test Item Value Reference Range Interpretation Comme nts Eosinophil Absolute Count (t est code = 606069) 0.0 X10E3/UL 0.0-0.4 [facility] Healthmonocyte count, blood, [id number] 15:42:00* Test Item Value Reference Range Interpretation Comme nts monocyte count, blood, autom ated (test code = 3076) 0.8 X10E3/UL 0.1-0.9 [facility] Healthlymphocyte count, blood, [id number] 15:42:00* Test Item Value Reference Range Interpretation Comme nts lymphocyte count, blood, automated (test code = 3074) 1.2 X10E3/UL 0.7-3.1 [facility] [id number] 15:42:00* Test Item Value Reference Range Interpretation Comme nts Absolute Neutrophils (test c ode = 57240) 7.7 X10E3/UL 1.4-7.0 [facility] Healthbasophils as percent of blood imyzsrievr8914-80-16 15:42:00* Test Item Value Reference Range Interpretation Comme nts basophils as percent of bloo d leukocytes (test code = 2426) 0 % [facility] Healtheosinophils as percent of blood ddtlgaikpc2979-13-51 15:42:00* Test Item Value Reference Range Interpretation Comme nts eosinophils as percent of bl ood leukocytes (test code = 4170) 0 % [facility] Healthmonocytes as percent of blood bbylnschiv2066-31-57 15:42:00* Test Item Value Reference Range Interpretation Comme nts monocytes as percent of bloo d leukocytes (test code = 2421) 8 % [facility] Healthlymphocytes as percent of blood krmdfollyr2353-50-84 15:42:00* Test Item Value Reference Range Interpretation Comme nts lymphocytes as percent of bl ood leukocytes (test code = 317) 12 % [facility] percent of blood rpzazkinjy3650-09-83 15:42:00* Test Item Value Reference Range Interpretation Comme nts neutrophils as percent of bl ood leukocytes (test code = 316) 80 % [facility] Healthplatelet pnsst2783-02-17 15:42:00* Test Item Value Reference Range Interpretation Comme nts platelet count (test code = 66) 422 X10E3/UL 150-450 [facility]red blood cell distribution yetpk4535-80-53 15:42:00* Test Item Value Reference Range Interpretation Comme nts red blood cell distribution width (test code = 1030) 14.1 % 11.7-15.4 [facility] corpuscular hemoglobin concentration, [id number] 15:42:00* Test Item Value Reference Range Interpretation Comme nts mean corpuscular hemoglobin concentration, RBC (test code = 1029) 32.3 G/DL 31.5-35.7 [facility] corpuscular hemoglobin, [id number] 15:42:00* Test Item Value Reference Range Interpretation Comme nts mean corpuscular hemoglobin, RBC (test code = 1031) 24.2 pg 26.6-33.0 L [facility] corpuscular volume, [id number] 15:42:00* Test Item Value Reference Range Interpretation Comme nts mean corpuscular volume, RBC (test code = 315) 75 fL 79-97 L [facility]hematocrit, lvbtj2915-06-31 15:42:00* Test Item Value Reference Range Interpretation Comme nts hematocrit, blood (test code = 64) 32.2 % 34.0-46.6 L [facility]hemoglobin, wjzdd4994-87-28 15:42:00* Test Item Value Reference Range Interpretation Comme nts hemoglobin, blood (test code = 65) 10.4 g/dL 11.1-15.9 L [facility] Healthurine rpwwljd4401-63-81 15:14:00* Test Item Value Reference Range Interpretation Comme nts urine culture (test code = 32328) No growth [facility] HealthNeisseria gonorrhoeae DNA isjjj9421-59-85 15:14:00* Test Item Value Reference Range Interpretation Comme nts Neisseria gonorrhoeae DNA pr obe (test code = 25425-7) Negative Negative [facility] Healthchlamydia DNA gtpku3070-84-28 15:14:00* Test Item Value Reference Range Interpretation Comme nts chlamydia DNA probe (test co de = 63292-4) Negative Negative [facility] HealthVaginal Group B Strep by Real-Time [id number] 16:28:00 * Test Item Value Reference Range Interpretation Comme nts Vaginal Group B Strep by [place] l-Time PCR (test code = 993428) Negative Negative [facility] Healthurine jlcwytc6409-06-10 16:27:00* Test Item Value Reference Range Interpretation Comme nts urine culture (test code = 72980) MUG [facility] Healthprotein, urine, semiquantitative (dipstick)2019-10-07 16:27:00* Test Item Value Reference Range Interpretation Comme nts protein, urine, semiquantita tive (dipstick) (test code = 1753-3) 33.6 [facility] Healthcreatinine, random, ykuhd3036-17-73 16:27:00* Test Item Value Reference Range Interpretation Comme nts creatinine, random, urine (t est code = 5167) 121.8 mg/dL [facility] Healthalanine aminotransferase (SGPT), njklr0187-58-47 15:59:00 * Test Item Value Reference Range Interpretation Comme nts alanine aminotransferase (SG PT), serum (test code = 40) 13 1/L 0-24 [facility] Healthaspartate aminotransferase (SGOT), wmdhg0369-69-80 15:59:00* Test Item Value Reference Range Interpretation Comme nts aspartate aminotransferase ( SGOT), serum (test code = 39) 16 1/L 0-40 [facility] HealthHIV-CMIA (Chemiluminescent Microparticle Immuno Assay) 2019-10-07 15:59:00* Test Item Value Reference Range Interpretation Comme nts HIV-CMIA (Chemiluminescent Microparticle Immuno Assay) (test code = 785458) Non Reactive Non Reactive [facility] Healthrapid plasma reagin antibody, slzwu9530-75-27 15:59:00* Test Item Value Reference Range Interpretation Comme nts rapid plasma reagin antibody , serum (test code = 308) Non Reactive Non Reactive [facility] Healthimmature granulocytes, percentage of total cells, blood 2019-10-07 15:59:00* Test Item Value Reference Range Interpretation Comme nts immature granulocytes, perce ntage of total cells, blood (test code = 868743) 3 % [facility]basophil count, klxtyhpu1583-43-84 15:59:00* Test Item Value Reference Range Interpretation Comme nts basophil count, absolute (te st code = 42512) 0.0 x10E3/uL 0.0-0.3 [facility] HealthEosinophil Absolute Cgfae4475-01-14 15:59:00* Test Item Value Reference Range Interpretation Comme nts Eosinophil Absolute Count (t est code = 225752) 0.1 X10E3/UL 0.0-0.4 [facility] Healthmonocyte count, blood, vkcbmzvtk7165-61-37 15:59:00* Test Item Value Reference Range Interpretation Comme nts monocyte count, blood, autom ated (test code = 3076) 1.2 X10E3/UL 0.1-0.9 H [facility] Healthlymphocyte count, blood, qhcsmrqwd5619-49-79 15:59:00* Test Item Value Reference Range Interpretation Comme nts lymphocyte count, blood, automated (test code = 3074) 1.6 X10E3/UL 0.7-3.1 [facility] HealthAbsolute Woicoltvlfq6396-81-08 15:59:00* Test Item Value Reference Range Interpretation Comme nts Absolute Neutrophils (test c ode = 19023) 9.4 X10E3/UL 1.4-7.0 H [facility] Healthbasophils as percent of blood pznfkpnukf4325-72-31 15:59:00* Test Item Value Reference Range Interpretation Comme nts basophils as percent of bloo d leukocytes (test code = 2426) 0 % [facility]altheosinophils as percent of blood ribzhsldzg4897-11-42 15:59:00* Test Item Value Reference Range Interpretation Comme nts eosinophils as percent of bl ood leukocytes (test code = 4170) 1 % [facility] Healthmonocytes as percent of blood tforxpiagb0438-39-29 15:59:00* Test Item Value Reference Range Interpretation Comme nts monocytes as percent of bloo d leukocytes (test code = 2421) 10 % [facility]lymphocytes as percent of blood puareycpyh9148-00-48 15:59:00* Test Item Value Reference Range Interpretation Comme nts lymphocytes as percent of bl ood leukocytes (test code = 317) 13 % [facility]neutrophils as percent of blood xpvuxraind2910-76-34 15:59:00* Test Item Value Reference Range Interpretation Comme nts neutrophils as percent of bl ood leukocytes (test code = 316) 73 % [facility] Healthplatelet dwzaz8315-06-51 15:59:00* Test Item Value Reference Range Interpretation Comme [facility] platelet count (test code = 66) 417 X10E3/UL 150-450 [facility]red blood cell distribution vydri5530-90-51 15:59:00* Test Item Value Reference Range Interpretation Comme [facility] red blood cell distribution width (test code = 1030) 14.2 % 11.7-15.4 [facility] corpuscular hemoglobin concentration, [id number] 15:59:00* Test Item Value Reference Range Interpretation Comme [facility] mean corpuscular hemoglobin concentration, RBC (test code = 1029) 31.0 G/DL 31.5-35.7 L [facility] corpuscular hemoglobin, [id number] 15:59:00* Test Item Value Reference Range Interpretation Comme [facility] mean corpuscular hemoglobin, RBC (test code = 1031) 24.4 pg 26.6-33.0 L [facility] corpuscular volume, AJP4508-10-57 15:59:00* Test Item Value Reference Range Interpretation Comme [facility] mean corpuscular volume, RBC (test code = 315) 79 fL 79-97 [facility]hematocrit, ibdur9025-61-86 15:59:00* Test Item Value Reference Range Interpretation Comme [facility] hematocrit, blood (test code = 64) 34.8 % 34.0-46.6 [facility]hemoglobin, cdtfi1882-69-75 15:59:00* Test Item Value Reference Range Interpretation Comme [facility] hemoglobin, blood (test code = 65) 10.8 g/dL 11.1-15.9 L [facility] Healtherythrocyte (RBC) xjxdg6296-29-52 15:59:00* Test Item Value Reference Range Interpretation Comme nts erythrocyte (RBC) count (ruslan t code = 67) 4.42 X10E6/UL 3.77-5.28 [facility] Healthleukocyte count, jshqg2266-83-99 15:59:00* Test Item Value Reference Range Interpretation Comme nts leukocyte count, blood (test code = 68) 12.6 X10E3/UL 3.4-10.8 H [facility] HealthHerpes Simplex Virus Gqgzcbm7968-92-87 14:07:37* Test Item Value Reference Range Interpretation Comme nts Herpes Simplex Virus Genital (test code = 4258) no [facility] HealthPOCT URINALYSIS W/O SPECIFIC OFXFYDK7213-59-13 23:11:00* Test Item Value Reference Range Interpretation [...] ve Lab Interpretation (test cod e = 70651-5) Normal [facility]<14 WEEKS US [id number] 17:45:03Addendum by Guerrero Whitaker MD on 04/16/2019 12:47 PMLimited USG for dating and viability:?Single live IUP measured 10 5/7 weeks.?Will date by this USG unless clinically indicated otherwise Casie Whitaker MD?04/16/2019?12:44 PM Limited USG for dating and viability:?Single live IUP lvaldbdj88 5/7 weeks.?Will date by this USG unless clinically indicated otherwise Guerrero Whitaker MD?04/16/2019?12:44 [facility] WITH DIFFERENTIAL 2019-04-14 21:44:00* Test Item Value [...] 34.1 g/dL 32-36 RDW-SD (test code = 57857-1) 37.2 fL 38.5-49 L RDW-CV (test code = 788-0) 12.5 % 11.5-14 PLT (test code = 777-3) See_Comment H [Automated messa ge] The system which generated this result transmitted reference range: 135 - 361 10*3/?L. The reference range was not used to interpret this result as normal/abnormal. MPV (test code = 66314-6) 8.8 fL 9.4-13.3 L NRBC/100 WBC (test code = 7323145846) See_Comment [Automated Allani ssage] The system which generated this result transmitted reference range: 0.0 - 10.0 /100 WBCs. The reference range was not used to interpret this result as normal/abnormal. NRBC x10^3 (test code = 9489104358) <0.01 See_Comment [Automated messa ge] The system which generated this result transmitted reference range: 10*3/?L. The reference range was not used to interpret this result as normal/abnormal. GRAN MAT (NEUT) % (test code = 770-8) 71.3 % IMM GRAN % (test code = 8602920970) 0.40 % LYMPH % (test code = 736-9) 19.6 % MONO % (test code = 5905-5) 7.8 % EOS % (test code = 713-8) 0.5 % BASO % (test code = 706-2) 0.4 % GRAN MAT x10^3(ANC) (test code = 1707312640) 5.21 10*3/uL 1.5-10.3 IMM GRAN x10^3 (test code = 7271004253) 0.03 10*3/uL 0-0.06 LYMPH x10^3 (test code = 731-0) 1.43 10*3/uL 0.7-7.4 MONO x10^3 (test code = 742-7) 0.57 10*3/uL 0-0.5 H EOS x10^3 (test code = 711-2) 0.04 10*3/uL 0-0.4 BASO x10^3 (test code = 704-7) 0.03 10*3/uL 0-0.1 Lab Interpretation (test code = 94928-2) Abnormal [facility]<14 WEEKS US CDIQTMY9360-84-94 23:55:04Limited USG for dating due to irregular periods:?transabdominal USG showed intrauterine gestationalsac with yolk sac and no pole Guerrero Whitaker MD?03/20/2019?6:54 PMUnAdventHealth Roll[facility] BrookGALV ONLY - VAGINAL PATHOGENS BY DNA [id number] 17:42:00* Test Item Value Reference Range Interpretation Comme nts Trichomonas vaginalis (test code = 1894462926) Negative Negative Gardnerella vaginalis (test code = 1428864794) Negative Negative Susan species (test code = 2759520626) Negative Negative Lab Interpretation (test cod e = 40359-4) Normal [facility] CampusGC & CHLAMYDIA AMPLIFIED [id number] 17:25:00* Test Item Value Reference Range Interpretation Comme nts Lab Interpretation (test cod e = 32627-6) Normal [facility] - DRUG SCREEN MDOICQ6524-27-98 02:43:00* Test Item Value Reference Range Interpretation Comme nts BENZO U (test code = 0932637522) Negative Negative ELVIS U (test code = 1483505214) Negative Negative AMPHET (test code = 3762884265) Negative Negative THC (test code = 4396485542) Negative Negative METHADONE (test code = 7793922812) Negative Negative Meth U (test code = 5574677953) Negative Negative OPIATES (test code = 2848924081) Negative Negative Cocaine Metabolite (test code = 6624118282) Negative Negative PROPOXY (test code = 6745958912) Negative Negative Tric U (test code = 7084953726) Negative Negative PCP (test code = 8400880864) Negative Negative OXYCOD (test code = 1116721853) Negative Negative ARNULFO (test code = ARNULFO) [...] legal testing). Lab Interpretation (test code = 05218-7) Normal [facility] BETA HCG [id number] 17:07:00* Test Item Value Reference Range Interpretation Comme nts BETA HCG (test code = 3520947299) See_Comment [Automated [employer] METERING] The system which generated this result transmitted reference range: Non- female and male patients: <5 mIU/mL. The reference range was not used to interpret this result as normal/abnormal. ARNULFO (test code = ARNULFO) Gestational Age?Range (mIU/mL)1-10?Weeks?4 6-27867304-18 Weeks?10629-33641451 -22 Weeks?7480-05766830- 40 Weeks?4020-236759900Rpf tin has been reported to cause a negative bias, interpret results relative to patient's use of biotin. [facility] URINALYSIS W/O SPECIFIC [id number] 14:40:00* Test Item Value Reference Range Interpretation [...] = 3257) N/A Negative - Negati ve [facility] [id number] 14:30:00* Test Item Value Reference Range Interpretation Comme nts POCT PREG (test code = 1605) Positive On board controls acceptable with C Line (test code = 3574) Yes POCT PREG LOT # (test code = 3575) POCT PREG TEST DATE ( test code = 3576) [facility] CampusLIPID [id number] 00:00:00* Test Item Value Reference Range Interpretation Comme nts CHOLESTEROL (test code = 2210) 151 MG/DL TRIGLYCERIDES (test code = 2232) 101 MG/DL HDL CHOLESTEROL (test code = 2220) 52 MG/DL CALC LDL CHOL (test code = 2237) 79 MG/DL RISK RATIO LDL/HDL (test cod e = 2238) 1.52 RATIO BASIC METABOLIC [id number] 00:00:00* Test Item Value Reference Range Interpretation Comme nts GLUCOSE (test code = 2217) 96 MG/DL BUN (test code = 2208) 9 MG/DL CREATININE (test code = 2214) 0.45 MG/DL eGFR AMER. (test code = 90973) (NOTE) ML/MIN/1.73 eGFR NON- AMER. (test code = 87915) NO CALC ML/MIN/1.73 SODIUM (test code = 2231) 142 MEQ/L POTASSIUM (test code = 2228) 4.1 MEQ/L CHLORIDE (test code = 2215) 103 MEQ/L CARBON DIOXIDE (test code = 2206) 26 MEQ/L CALCIUM (test code = 2209) 8.6 MG/DL LIPID [id number] 00:00:00* Test Item Value Reference Range Interpretation Comme nts CHOLESTEROL (test code = 2210) 151 MG/DL TRIGLYCERIDES (test code = 2232) 101 MG/DL HDL CHOLESTEROL (test code = 2220) 52 MG/DL CALC LDL CHOL (test code = 2237) 79 MG/DL RISK RATIO LDL/HDL (test cod e = 2238) 1.52 RATIO BASIC METABOLIC [id number] 00:00:00* Test Item Value Reference Range Interpretation Comme nts GLUCOSE (test code = 2217) 96 MG/DL BUN (test code = 2208) 9 MG/DL CREATININE (test code = 2214) 0.45 MG/DL eGFR AMER. (test code = 78660) (NOTE) ML/MIN/1.73 eGFR NON- AMER. (test code = 06871) NO CALC ML/MIN/1.73 SODIUM (test code = 2231) 142 MEQ/L POTASSIUM (test code = 2228) 4.1 MEQ/L CHLORIDE (test code = 2215) 103 MEQ/L CARBON DIOXIDE (test code = 2206) 26 MEQ/L CALCIUM (test code = 2209) 8.6 MG/DL LIPID [id number] 00:00:00* Test Item Value Reference Range Interpretation Comme nts CHOLESTEROL (test code = 2210) 151 MG/DL TRIGLYCERIDES (test code = 2232) 101 MG/DL HDL CHOLESTEROL (test code = 2220) 52 MG/DL CALC LDL CHOL (test code = 2237) 79 MG/DL RISK RATIO LDL/HDL (test cod e = 2238) 1.52 RATIO BASIC METABOLIC [id number] 00:00:00* Test Item Value Reference Range Interpretation Comme nts GLUCOSE (test code = 2217) 96 MG/DL BUN (test code = 2208) 9 MG/DL CREATININE (test code = 2214) 0.45 MG/DL eGFR AMER. (test code = 73923) (NOTE) ML/MIN/1.73 eGFR NON- AMER. (test code = 76148) NO CALC ML/MIN/1.73 SODIUM (test code = 2231) 142 MEQ/L POTASSIUM (test code = 2228) 4.1 MEQ/L CHLORIDE (test code = 2215) 103 MEQ/L CARBON DIOXIDE (test code = 2206) 26 MEQ/L CALCIUM (test code = 2209) 8.6 MG/DL LIPID [id number] 00:00:00* Test Item Value Reference Range Interpretation Comme nts CHOLESTEROL (test code = 2210) 151 MG/DL TRIGLYCERIDES (test code = 2232) 101 MG/DL HDL CHOLESTEROL (test code = 2220) 52 MG/DL CALC LDL CHOL (test code = 2237) 79 MG/DL RISK RATIO LDL/HDL (test cod e = 2238) 1.52 RATIO BASIC METABOLIC [id number] 00:00:00* Test Item Value Reference Range Interpretation Comme nts GLUCOSE (test code = 2217) 96 MG/DL BUN (test code = 2208) 9 MG/DL CREATININE (test code = 2214) 0.45 MG/DL eGFR AMER. (test code = 22217) (NOTE) ML/MIN/1.73 eGFR NON- AMER. (test code = 28195) NO CALC ML/MIN/1.73 SODIUM (test code = 2231) 142 MEQ/L POTASSIUM (test code = 2228) 4.1 MEQ/L CHLORIDE (test code = 2215) 103 MEQ/L CARBON DIOXIDE (test code = 2206) 26 MEQ/L CALCIUM (test code = 2209) 8.6 MG/DL LIPID [id number] 00:00:00* Test Item Value Reference Range Interpretation Comme nts CHOLESTEROL (test code = 2210) 151 MG/DL TRIGLYCERIDES (test code = 2232) 101 MG/DL HDL CHOLESTEROL (test code = 2220) 52 MG/DL CALC LDL CHOL (test code = 2237) 79 MG/DL RISK RATIO LDL/HDL (test cod e = 2238) 1.52 RATIO BASIC METABOLIC [id number] 00:00:00* Test Item Value Reference Range Interpretation Comme nts GLUCOSE (test code = 2217) 96 MG/DL BUN (test code = 2208) 9 MG/DL CREATININE (test code = 2214) 0.45 MG/DL eGFR AMER. (test code = 84615) (NOTE) ML/MIN/1.73 eGFR NON- AMER. (test code = 25390) NO CALC ML/MIN/1.73 SODIUM (test code = 2231) 142 MEQ/L POTASSIUM (test code = 2228) 4.1 MEQ/L CHLORIDE (test code = 2215) 103 MEQ/L CARBON DIOXIDE (test code = 2206) 26 MEQ/L CALCIUM (test code = 2209) 8.6 MG/DL LIPID [id number] 00:00:00* Test Item Value Reference Range Interpretation Comme nts CHOLESTEROL (test code = 2210) 151 MG/DL TRIGLYCERIDES (test code = 2232) 101 MG/DL HDL CHOLESTEROL (test code = 2220) 52 MG/DL CALC LDL CHOL (test code = 2237) 79 MG/DL RISK RATIO LDL/HDL (test cod e = 2238) 1.52 RATIO BASIC METABOLIC [id number] 00:00:00* Test Item Value Reference Range Interpretation Comme nts GLUCOSE (test code = 2217) 96 MG/DL BUN (test code = 2208) 9 MG/DL CREATININE (test code = 2214) 0.45 MG/DL eGFR AMER. (test code = 52116) (NOTE) ML/MIN/1.73 eGFR NON- AMER. (test code = 78949) NO CALC ML/MIN/1.73 SODIUM (test code = 2231) 142 MEQ/L POTASSIUM (test code = 2228) 4.1 MEQ/L CHLORIDE (test code = 2215) 103 MEQ/L CARBON DIOXIDE (test code = 2206) 26 MEQ/L CALCIUM (test code = 2209) 8.6 MG/DL LIPID [id number] 00:00:00* Test Item Value Reference Range Interpretation Comme nts CHOLESTEROL (test code = 2210) 151 MG/DL TRIGLYCERIDES (test code = 2232) 101 MG/DL HDL CHOLESTEROL (test code = 2220) 52 MG/DL CALC LDL CHOL (test code = 2237) 79 MG/DL RISK RATIO LDL/HDL (test cod e = 2238) 1.52 RATIO BASIC METABOLIC [id number] 00:00:00* Test Item Value Reference Range Interpretation Comme nts GLUCOSE (test code = 2217) 96 MG/DL BUN (test code = 2208) 9 MG/DL CREATININE (test code = 2214) 0.45 MG/DL eGFR AMER. (test code = 66180) (NOTE) ML/MIN/1.73 eGFR NON- AMER. (test code = 45529) NO CALC ML/MIN/1.73 SODIUM (test code = 2231) 142 MEQ/L POTASSIUM (test code = 2228) 4.1 MEQ/L CHLORIDE (test code = 2215) 103 MEQ/L CARBON DIOXIDE (test code = 2206) 26 MEQ/L CALCIUM (test code = 2209) 8.6 MG/DL LIPID [id number] 00:00:00* Test Item Value Reference Range Interpretation Comme nts CHOLESTEROL (test code = 2210) 151 MG/DL TRIGLYCERIDES (test code = 2232) 101 MG/DL HDL CHOLESTEROL (test code = 2220) 52 MG/DL CALC LDL CHOL (test code = 2237) 79 MG/DL RISK RATIO LDL/HDL (test cod e = 2238) 1.52 RATIO BASIC METABOLIC [id number] 00:00:00* Test Item Value Reference Range Interpretation Comme nts GLUCOSE (test code = 2217) 96 MG/DL BUN (test code = 2208) 9 MG/DL CREATININE (test code = 2214) 0.45 MG/DL eGFR AMER. (test code = 33565) (NOTE) ML/MIN/1.73 eGFR NON- AMER. (test code = 60068) NO CALC ML/MIN/1.73 SODIUM (test code = 2231) 142 MEQ/L POTASSIUM (test code = 2228) 4.1 MEQ/L CHLORIDE (test code = 2215) 103 MEQ/L CARBON DIOXIDE (test code = 2206) 26 MEQ/L CALCIUM (test code = 2209) 8.6 MG/DL Consult Notes Date/Time Note Provider Source 2024-07-23 17:40:08 Associated Order(s): CONSULT JACK SPOOLER TENDER-ADULT Reason for consult - please give recommendation or opinion on: depression, please provide with available resources SW received consult regarding patient having depression. However, patient scored a 6 on PPD assessment. No SW consult initiated. Cristina Cee LMSW [facility] Statistical Typist [phone] [email or web address] Available Fri - Fri WHEEL WORKER Cristina Cee LMSW [facility] - Health History and Physical Notes [...] Past Surgical History: Procedure Laterality Date ADENOIDECTOMY 2007 TONSILLECTOMY 2007 Past Medical History: Diagnosis Date [...] all extremities, no facial droop : SVE- 11/09/3 REVIEW OF LABORATORY, PATHOLOGY, AND RADIOLOGY DATA [...] AM GTT Lab Results Component Value Date/Time [id number] 89 (L) 06/01/2024 02:14 PM CBC Lab [...] care 06/01/2024 Anatomy ultrasound: no openings in [place] and offered other clinics, patient declined. Outside [...] PP control plan: no current plans - [facility] Fetus - Presentation on admission: cephalic - posterior placenta - EFW: 3484 g, 54%tile - FHT reactive and reassuring - no anatomy scan on file D/w Dr. Jamarcus Hwang MD PhD WHEEL WORKER Associated attestation - Shawn Maciel MD - 07/22/2024 6:18 AM BULL WHEEL WORKER Attending addendum: I was L&D faculty on DOS and agree with H&P below. I was immediately available. Shawn Maciel MD [facility] - Health Procedure Notes Date/Time Note Provider Source 2024-07-22 10:52:44 Associated Order(s): Central Neuraxial Block Central Neuraxial Block Date/Time: 07/22/2024 10:04 AM Performed by: Logan Garcia MD Authorized by: Miguel Carreno MD Patient Location: Other Reason for Block: Labor analgesia, OB request, Patient request, Post-op pain management and Surgical anesthesia Staff: Anesthesiologist: Miguel Carreno MD Resident/LOCAL COORDINATOR: Logan Garcia MD Performed by: resident/LOCAL COORDINATOR Preanesthetic Checklist: patient identified, IV checked, risks [...] MICHELLE saline Guidance with: landmark technique} Epidural/Spinal [place] and/or Catheter: Epidural/Spinal Kit: Shani Needle Type: Tuohy Needle Gauge: 17 G [...] expectations; PCEA explained and fall precautions given. [facility] 2024-07-22 06:10:58 Altagracia Yu is a 19 [...] +2 Hien Flores MD 07/22/2024 6:11 AM [facility]
--- NOTE | 2024-09-15 04:27 | ER ---
Nurse's Notes [facility] Name: Altagracia Yu Age: 19 yrs Sex: Female : 2005 Arrival Date: 09/14/2024 Time: 21:13 Bed 14 Private MD: Diagnosis: Vaginal bleeding, menses Presentation: 09/14 21:25 Chief complaint: Patient states: Approximately 7 weeks post . Had a positive cm10 test yesterday with some vaginal bleeding. Coronavirus screen: Client denies travel out of the [place] in the last 14 days. Ebola Screen: Patient denies travel to an Ebola-affected area in the 21 days before illness onset. Initial Sepsis Screen: Does the patient meet any 2 criteria? No. Patient's initial sepsis screen is negative. Does the patient have a suspected source of infection? No. Patient's initial sepsis screen is negative. Risk Assessment: Do you want to hurt yourself or someone else? Patient reports no desire to harm self or others. Onset of symptoms was September 13, 2024. 21:25 Method Of Arrival: Ambulatory cm10 21:25 Acuity: KARMEN 3 cm10 Triage Assessment: 21:27 General: Appears in no apparent distress. comfortable, Behavior is calm, cooperative, cm10 appropriate for age. Neuro: No deficits noted. Level of Consciousness is awake, alert, obeys commands, Oriented to person, place, time, situation, Appropriate for age. Respiratory: No deficits noted. Airway is patent Respiratory effort is even, unlabored, Respiratory pattern is regular, symmetrical. CRYPTOLOGIST: 23:38 unknown aa10 Historical: - Allergies: 21:27 PENICILLINS; cm10 - Home Meds: 23:36 Vitamin Oral [Active]; aa10 - PMHx: 21:27 adhd; Anxiety; Depression; Suicidal attempts; cm10 - Immunization history:: Adult Immunizations up to date. - Infectious Disease History:: Denies. - Social history:: Smoking status: Reported history of juuling and/or vaping. Screenin:35 [facility] ED Fall Risk Assessment (Adult) History of falling in the last 3 months, aa10 including since admission No falls in past 3 months (0 pts) Confusion or Disorientation No (0 pts) Intoxicated or Sedated No (0 pts) Impaired Gait No (0 pts) Mobility Assist Device Used No (0 pt) Altered Elimination No (0 pt) Score/Fall Risk Level 0 - 2 = Low Risk Oriented to surroundings, Maintained a safe environment, Educated pt \T\ family on fall prevention, incl call for assistance when getting out of bed, Assessed \T\ reinforced patient's understanding of fall precautions, Provided non-skid footwear, Hourly rounding (assess needs \T\ fall precautionary measures) done. Abuse screen: Denies threats or abuse. Denies injuries from another. Nutritional screening: No deficits noted. On no prescribed diet. Tuberculosis screening: No symptoms or risk factors identified. Assessment: 23:35 General: Appears in no apparent distress. distressed, comfortable, well groomed, aa10 Behavior is calm, cooperative, appropriate for age, Reports chills for fever for. Pain: Denies pain. Neuro: No deficits noted. Level of Consciousness is awake, alert, obeys commands, Oriented to person, place, time, situation, Appropriate for age Sports Journalist are equal bilaterally Moves all extremities. Cardiovascular: No deficits noted. Capillary refill < 3 seconds. Respiratory: No deficits noted. Airway is patent. Vital Signs: 21:25 BP 135 / 75; Pulse 71; Resp 15; Temp 98.2(O); Pulse Ox 96% on R/A; Weight 99.79 kg; cm10 Height 5 ft. 5 in. ; Pain 5/10; 23:33 BP 119 / 71; Pulse 68; Resp 20 S; Temp 98.4; Pulse Ox 99% on R/A; aa10 09/15 01:24 BP 120 / 82; Pulse 68; Resp 20; Temp 98.4; Pulse Ox 99% on R/A; aa10 09/14 21:25 Body Mass Index 36.61 (99.79 kg, 165.1 cm) cm10 09/14 21:25 Pain Scale: Adult cm10 ED Course: 09/14 21:17 Patient arrived in ED. im 21:21 Chance Flores MD is Attending Physician. sp3 21:27 Triage completed. cm10 21:27 Arm band placed on right wrist. Patient placed in waiting room. cm10 22:04 US Transvaginal Ob In Process Unspecified. EDMS 23:37 Patient has correct armband on for positive identification. Allergy band placed. Fall aa10 risk band placed. Placed in gown. Bed in low position. Call light in reach. Side rails up X2. Provided Education on: plan of care. Door closed. Noise minimized. Lights dimmed. 09/15 00:07 Abo/rh Typing Sent. aa10 00:07 Basic Metabolic Panel Sent. aa10 00: CBC with Diff Sent. aa10 00:07 Test, Urine Sent. aa10 00: Quantitative Hcg Sent. aa10 00:07 Urinalysis w/ reflexes Sent. aa10 00:08 Inserted saline lock: 20 gauge in left antecubital area, using aseptic technique. aa10 01:24 No provider procedures requiring assistance completed. IV discontinued. aa10 Administered Medications: No medications were administered Medication: 09/14 23:37 VIS not applicable for this client. aa10 Outcome: 09/15 01:02 Discharge ordered by . sp3 01:46 Patient left the ED. aa10 01:47 Discharged to home ambulatory, aa10 01:47 Condition: good 01:47 Discharge instructions given to patient, Instructed on discharge instructions, Signatures: Dispatcher [employer] EDChance Bateman MD MD sp3 Anna Kowalski Clarissa RN RN cm10 Hal Sprague RN RN aa10 Corrections: (The following items were deleted from the chart) 09/14 21:27 21:27 Allergies: Aspirin; cm10 cm10
--- NOTE | 2024-09-15 04:27 | EDPHYS ---
Physician Documentation [facility] Name: Altagracia Yu Age: 19 yrs Sex: Female : 2005 Arrival Date: 09/14/2024 Time: 21:13 Bed 14 Private MD: ED Physician Chance Flores HPI: 09/14 21:43 This 19 yrs old Female presents to ER via Ambulatory with complaints of test. sp3 21:43 19-year-old female with recent childbirth on July 22, 2024 presents with 9 positive sp3 test at home and vaginal bleeding. Patient is sexually active. Past medical history as above including prior depression, anxiety, ADHD and suicidal attempts in the past. Patient denies SI, HI or psychosis currently. Patient also denies headache, neck pain, chest pain, shortness breath, syncope, near syncope, bleeding anywhere else, dysuria, urinary frequency, or any other signs or symptoms on ROS at this time.. PROGRESSIVE CARE UNIT REGISTERED NURSE: 23:38 unknown aa10 Historical: - Allergies: 21:27 PENICILLINS; cm10 - Home Meds: 23:36 Vitamin Oral [Active]; aa10 - PMHx: 21:27 adhd; Anxiety; Depression; Suicidal attempts; cm10 - Immunization history:: Adult Immunizations up to date. - Infectious Disease History:: Denies. - Social history:: Smoking status: Reported history of juuling and/or vaping. ROS: 21:44 Constitutional: Negative for fever, chills, and weight loss, Eyes: Negative for injury, sp3 pain, redness, and discharge, ENT: Negative for injury, pain, and discharge, Neck: Negative for injury, pain, and swelling, Cardiovascular: Negative for chest pain, palpitations, and edema, Respiratory: Negative for shortness of breath, cough, wheezing, and pleuritic chest pain, Abdomen/GI: Negative for abdominal pain, nausea, vomiting, diarrhea, and constipation, Back: Negative for injury and pain, MS/Extremity: Negative for injury and deformity, Skin: Negative for injury, rash, and discoloration, Neuro: Negative for headache, weakness, numbness, tingling, and seizure, Psych: Negative for depression, anxiety, suicide ideation, homicidal ideation, and hallucinations, Allergy/Immunology: Negative for hives, rash, and allergies, Endocrine: Negative for neck swelling, polydipsia, polyuria, polyphagia, and marked weight changes, 21:44 All other systems are negative, Exam: 21:44 Constitutional: This is a well developed, well nourished patient who is awake, alert, sp3 and in no acute distress. Head/Face: Normocephalic, atraumatic. Eyes: Pupils equal round and reactive to light, extra-ocular motions intact. Lids and lashes normal. Conjunctiva and sclera are non-icteric and not injected. Cornea within normal limits. Periorbital areas with no swelling, redness, or edema. ENT: Nares patent. No nasal discharge, no septal abnormalities noted. External auditory canals are clear. Oropharynx with no redness, swelling, or masses, exudates, or evidence of obstruction, uvula midline. Mucous membranes moist. Neck: Trachea midline, no thyromegaly or masses palpated, and no cervical lymphadenopathy. Supple, full range of motion without nuchal rigidity, or vertebral point tenderness. No Meningismus. Chest/axilla: Normal chest wall appearance and motion. Nontender with no deformity. No lesions are appreciated. Cardiovascular: Regular rate and rhythm with a normal S1 and S2. No gallops, murmurs, or rubs. Normal PMI, no JVD. No pulse deficits. Respiratory: Lungs have equal breath sounds bilaterally, clear to auscultation and percussion. No rales, rhonchi or wheezes noted. No increased work of breathing, no retractions or nasal flaring. Abdomen/GI: Soft, non-tender, with normal bowel sounds. No distension or tympany. No guarding or rebound. No evidence of tenderness throughout. Back: No spinal tenderness. No costovertebral tenderness. Full range of motion. Skin: Warm, dry with normal turgor. Normal color with no rashes, no lesions, and no evidence of cellulitis. MS/ Extremity: Pulses equal, no cyanosis. Neurovascular intact. Full, normal range of motion. Neuro: Awake and alert, GCS 15, oriented to person, place, time, and situation. Cranial nerves II-XII grossly intact. Motor strength 5/5 in all extremities. Sensory grossly intact. Cerebellar exam normal. Normal gait. Psych: Awake, alert, with orientation to person, place and time. Behavior, mood, and affect are within normal limits. 21:44 : Deferred to ultrasound. No exsanguination, heavy bleeding or other abnormality noted. Abdomen is soft and nontender., Vital Signs: 21:25 BP 135 / 75; Pulse 71; Resp 15; Temp 98.2(O); Pulse Ox 96% on R/A; Weight 99.79 kg; cm10 Height 5 ft. 5 in. ; Pain 5/10; 23:33 BP 119 / 71; Pulse 68; Resp 20 S; Temp 98.4; Pulse Ox 99% on R/A; aa10 09/15 01:24 BP 120 / 82; Pulse 68; Resp 20; Temp 98.4; Pulse Ox 99% on R/A; aa10 09/14 21:25 Body Mass Index 36.61 (99.79 kg, 165.1 cm) cm10 09/14 21:25 Pain Scale: Adult cm10 MDM: 09/14 21:28 Medical Screening Exam initiated sp3 21:45 Data reviewed: vital signs, nurses notes, lab test result(s), radiologic studies. ED sp3 course: 19-year-old female with vaginal bleeding and positive test at home. Differential diagnosis includes normal , ectopic , threatened , missed , among others. Workup will include ultrasound, general labs and supportive care. Disposition pending workup and patient course.. 09/15 01:01 ED course: Urine test is positive however beta-hCG quantitative is less than sp3 1. Unknown why urine test is positive however we will go with the hCG quantitative as it is more accurate. Ultrasound demonstrates empty uterus. Remainder of blood work is normal. Patient is no longer bleeding and patient is having no pain whatsoever. We will safely discharge her home at this time with follow-up to her OB doctor.. 09/14 21:29 Order name: Abo/rh Typing; Complete Time: 00:59 sp3 09/14 20: Order name: Basic Metabolic Panel; Complete Time: 00:59 sp3 09/14 20: Order name: CBC with Diff sp3 09/14 20: Order name: Test, Urine; Complete Time: 00:59 sp3 09/14 21: Order name: Quantitative Hcg; Complete Time: 00:59 sp3 09/14 21: Order name: Urinalysis w/ reflexes; Complete Time: 00:59 sp3 09/15 00:37 Order name: CBC Smear Scan EDMS 09/14 21:29 Order name: US Transvaginal Ob; Complete Time: 22:23 sp3 09/14 21:29 Order name: IV Saline Lock; Complete Time: 23:39 sp3 09/14 21:29 Order name: Labs collected and sent; Complete Time: 00:07 sp3 09/14 21:29 Order name: NPO; Complete Time: 23:39 sp3 Administered Medications: No medications were administered Disposition Summary: 09/15/24 01:02 Discharge Ordered Notes: Location: Home sp3 Condition: Stable sp3 Diagnosis - Vaginal bleeding, menses sp3 Followup: sp3 - With: Private Physician - When: Upon discharge from the Emergency Department - Reason: Continuance of care Discharge Instructions: - Discharge Summary Sheet sp3 - Safe Sex sp3 Forms: - Medication Reconciliation Form sp3 - Antibiotic Education sp3 - Prescription Opioid Use sp3 - Patient Portal Instructions sp3 - Leadership Thank You Letter sp3 Signatures: Dispatcher [employer] Chance Bateman MD MD sp3 Nydia Alvarado RN RN cm10 Hal Sprague, RN RN aa10 Corrections: (The following items were deleted from the chart) 09/14 21:27 21:27 Allergies: Aspirin; cm10 cm10
[2024-09-15 13:41] VITALS: TEMP 98.4; O2SAT 99
[2024-09-15 13:42] VITALS: BP 120/82
== END 2024-09-15 01:46 | disposition home or self-care (01) ==
LOC: ER 21:13
DX: N92.0 Excessive and frequent menstruation with regular cycle (principal)
CPT/HCPCS: 36415; 76817; 80048; 81001; 81025; 84702; 85025; 86900; 86901

== ENCOUNTER 2024-09-28 19:37 | Emergency (ER) | payer OTHER ==
--- OUTSIDE RECORDS SUMMARY | 2024-09-28 19:47 | XMS REPORT | Continuity of Care Document ---
Author Name Unknown Address [address] [facility] [address] [place] [address] [facility] thconnect Address [address] [facility] [address] [place] [address] Care Team Providers Care Contracts Manager Name Role Phone Mariela Waller Primary Care Physician LASHONDA MILLIGAN Attending Clinician UnavailCAROLE Riojas Attending Clinician Unavailable SHAWN MACIEL Attending Clinician Unavailable SHAWN MACIEL Attending Clinician Unavailable Shanw Maciel MD Attending Clinician Logan Garcia MD Attending Clinician [phone] Franck Elise MD Attending Clinician [phone] ZEV CISSE Attending Clinician Unavailable Lashonda Milligan CNM Attending Clinician [phone] KHANH VARGHESE Attending Clinician Unavail able Khanh Evans Attending Clinician + ANNA SANTANA Attending Clinician ANNA Wells Attending Clinician Anna Wells MD Attending Clinician + [phone] MARIELA CHEN Attending Clinician Unavailable MARIELA CHEN Attending Clinician Unavailable Yves Ventura MD Attending Clinician [phone] Mariela Chen MD Attending Clinician [phone] GUERRERO WHITAKER Attending Clinician Unavailable GUERRERO WHITAKER Attending Clinician Unavailable Guerrero Whitaker MD Attending Clinician [phone] Mamadou MICHAELS Attending Clinician Unavailable Mamadou Braswell Attending Clinician [phone] Doctor Unassigned, [place] Attending Clinician U navailable Angie Valentinohemi Attending Clinician UnavailHeaven Holm Attending Clinician [phone] Yenni Cervantes Attending Clinician Unavailable Hannah Sanchez Attending Clinician Yina Kimble Attending Clinician Unavailable Adali Mcpherson Attending Clinician [phone] Responsible Provider, Not Yet Assigned Attending Clinician Unavailable Yenni Gross Attending Clinician Unavailable Mailer, [facility] Attending [facility] louise Unavailable Shayy Rios Attending Clinician UnavailColette Mandujano Attending Clinician [phone] Tram Landaverde Attending Clinician Unavailable Polina Dobson Attending Clinician Unavailable EMMY BONILLA Attending Clinician Unavailable Emmy Bonilla PA-C Attending Clinician [phone] GUILLERMINA GILL Attending Clinician Unavailable , [facility] Attending Clinician Unavailable GUERRERO WHITAKER Admitting Clinician Unavailable SHAWN MACIEL Admitting Clinician Unavailable Shawn Maciel MD Admitting Clinician [phone] ANNA SANTANA Admitting Clinician Anna Wells MD Admitting Clinician + [phone] MARIELA CHEN Admitting Clinician Unavailable Mariela Chen MD Admitting Clinician [phone] Guerrero Whitaker MD Admitting Clinician [phone] [facility] Unavailable [phone] Adali Mcpherson Unavailable [phone] Colette Chowdary Unavailable [phone] Yenni Cervantes Unavailable Unavailable Payers Payer Name Policy Type Policy Number Effective Date Expirati on Date Source [facility] [id number] 2024 00:00:00 GREG Cintron/ BO WATERS [id number] 2024 00:00:[address] [facility] [id number] 2018 00:00:00 Problems Condition Name Condition Details Condition Category Status Onset Date Resolution Date Last Treatment Date Treating Clinician Comments Source (spontaneo us vaginal delivery) (spontaneo us vaginal delivery) Disease Active 2023-08 00:00: 00 [facility] Single live Single live Disease Active 2023-08 00:00: 00 [facility] Obstetrica l laceration Obstetrica l laceration Disease Active 2023-08 00:00: 00 [facility] Anemia, Anemia, Disease Active 2023-08 00:00: 00 [facility] Shoulder dystocia during labor and delivery Shoulder dystocia during labor and delivery Disease Active 2023-08 00:00: 00 [facility] 39 weeks gestation of 39 weeks gestation of Disease Active 2023-08 00:00: 00 [facility] Positive GBS test Positive GBS test Disease Active 2023-08 00:00: 00 [facility] Back pain affecting in third trimester Back pain affecting in third trimester Disease Active 2023-08 00:00: 00 [facility] Morbid obesity with body mass index of 40.0-49.9 Morbid obesity with body mass index of 40.0-49.9 Disease Active 2024-1 1-02 00:00: 00 [facility] Chlamydia infection affecting Chlamydia infection affecting Disease Active 2023-08 0-17 00:00: 00 [facility] Anemia of mother in , antepartum Anemia of mother in , antepartum Disease Active 2023-08 0-16 00:00: 00 [facility] Poor historian Poor historian Disease Active 2023-08 0-16 00:00: 00 [facility] Flu vaccine refused Flu vaccine refused Disease Active 2023-08 0-16 00:00: 00 [facility] Rubella non-immune status, antepartum Rubella non-immune status, antepartum Disease Active 2023-08 0-16 00:00: 00 [facility] Maternal varicella, non-immune Maternal varicella, non-immune Disease Active 2023-08 0-16 00:00: 00 [facility] History of anxiety and depression History of anxiety and depression Disease Active 2023-08 0-15 00:00: 00 [facility] Obesity affecting in third trimester Obesity affecting in third trimester Disease Active 2023-08 0-15 00:00: 00 [facility] Late care Late care Disease Active 2023-08 0-15 00:00: 00 [facility] Current every day vaping Current every day vaping Disease Active 2023-08 0-15 00:00: 00 [facility] Greater Than or Equal to 95th Percentile For Age Condition Active 2- 00:00: 00 2019-10-15 09:09:50 [facility] Anemia in , third trimester Condition Active 2-24 00:00: 00 2019-10-11 11:20:23 Adali Mcpherson [facility] Health Supervisio n of other high risk pregnancie s, third trimester Condition Active 2-20 00:00: 00 2019-10-07 17:42:03 Colette Chowdary [facility] Health Supervisio n of high risk due to social problems, third trimester Condition Active 2- 00:00: 00 2019-10-07 17:42:03 Germán Manning Colette Call [facility] 28 weeks gestation of 28 weeks gestation of Disease Active 2018-08 00:00: 00 [facility] Bacterial vaginosis in Bacterial vaginosis in Disease Resolve d 2023-08 1 00:00: 00 2024-07-20 00:00:00 2024-07-20 19:53:37 [facility] Cramping affecting , antepartum Cramping affecting , antepartum Disease Resolve d 2023-08 0-24 00:00: 00 2024-06-24 00:00:00 2024-06-24 07:22:04 [facility] No leakage of amniotic fluid into vagina No leakage of amniotic fluid into vagina Disease Resolve d 2023-08 00:00: 00 2024-06-23 00:00:00 2024-06-23 12:40:19 [facility] Round ligament pain Round ligament pain Disease Resolve d 09-17 00:00: 00 2024-06-01 00:00:00 2024-06-01 13:43:00 [facility] 32 weeks gestation of 32 weeks gestation of Disease Resolve d 2018-08 00:00: 00 2024-06-01 00:00:00 2024-06-01 13:43:02 [facility] Supervisio n of high risk in third trimester Supervisio n of high risk in third trimester Disease Resolve d 2018-08 00:00: 00 2024-06-01 00:00:00 2024-06-01 13:43:01 [facility] Uterine size-date discrepanc y in third trimester Uterine size-date discrepanc y in third trimester Disease Resolve d 2018-08 00:00: 00 2024-06-01 00:00:00 2024-06-01 13:42:59 [facility] Need for Tdap vaccinatio n Need for Tdap vaccinatio n Disease Resolve d 2018-08 00:00: 00 2024-06-01 00:00:00 2024-06-01 13:43:06 [facility] History of Past Illness [...] DRUG INGREDI Active Hives 6- 00:00: 00 [facility] Penicill in Propensi ty to adverse reaction s Active Hives 6- 00:00: 00 [facility] Penicill ins - CLASS Propensi ty to adverse reaction to drug Active 7-19 00:00: 00 Penicill ins Propensi ty to adverse reaction to drug Active 3-21 00:00: 00 ASPIRIN DRUG INGREDI Active ITCHING 0 7-31 00:00: 00 [facility] Aspirin Propensi ty to adverse reaction s Active Swelling 0 7-31 00:00: 00 [facility] Social History Social Habit Start Date Stop Date Quantity Comments Source ASSERTION 2023-11-05 00:00:00 [facility] SDOH [facility] History SDOH Alcohol Binge [facility] Tobacco use and exposure 2024-07-22 00:00:00 2024-07-22 00:00:00 Former smokeless tobacco user [facility] Alcoholic beverage intake 2024-07-22 00:00:00 2024-07-22 00:00:00 Lifetime non-drinker (finding) [facility] History of Social function 2024-06-01 00:00:00 2024-06-01 00:00:00 [facility] Tobacco Comment 2024-06-01 00:00:00 2024-06-01 00:00:00 Vapes [facility] Have you traveled to any zika virus infected areas? 2019-10-14 13:44:33 2019-10-14 13:44:33 No [facility] social history E&M 2019-10-07 14:07:37 2019-10-07 14:07:37 not currently with familyliving with fobarbara's familystates her own parents not involved with this . [facility] cat exposure during 2019-10-07 14:07:37 2019-10-07 14:07:37 no [facility] Alcohol intake 2019-09-17 00:00:00 2019-09-17 00:00:00 [facility] History SDOH Alcohol Frequency 2019-03-17 00:00:00 2019-03-17 00:00:00 1 [facility] History of tobacco use 2019-03-07 00:00:00 Chews Tobacco [facility] Sex assigned at 2005 00:00:00 2005 00:00:00 [facility] Smoking Status Start Date Stop Date Source Never smoked tobacco [facility] Medications Ordered Medication Name Filled Medication Name Start Date Stop Date Current Medication? Ordering Clinician Indication Dosage Frequency Signature (SIG) Comments Components Source acetaminoph en 325 mg tablet 2023-08 00:00: 00 07-25 05:59 :00 Yes [id number] 650mg Take 2 tablets by mouth every 8 (eight) hours. [facility] simethicone (GAS RELIEF (SIMETHICON E)) chewable tablet 160 mg 2023-08 15:00: 00 07-24 23:06 :47 No 160mg 160 mg, Oral, PC+HS, First dose on Fri07/23/24 at 0900, Until Discontinu ed, Routine [facility] acetaminoph en (TYLENOL) tablet 650 mg 2023-08 08:00: 00 Yes 650mg 650 mg, Oral, Q8H, First dose on Fri07/23/24 at 0200, Until Discontinu ed, Routine [facility] ibuprofen (IBU) tablet 600 mg 2023-08 08:00: 00 07-24 23:06 :47 No 600mg 600 mg, Oral, Q8HA1, First dose on Fri07/23/24 at 0200, Until Discontinu ed, Routine [facility] rho(D) immune globulin (RHOPHYLAC) injection 300 mcg 2023-08 07:50: 24 07-24 23:06 :47 No 300ug [facility] diphenhydrA MINE (BENADRYL) tablet 25 mg 2023-08 07:50: 20 07-24 23:06 :47 No 25mg [facility] ondansetron (ZOFRAN (PF)) injection 4 mg 2023-08 07:50: 20 07-24 23:06 :47 No 4mg [facility] docusate (COLACE) capsule 200 mg 2023-08 07:50: 20 07-24 23:06 :47 No 200mg 200 mg, Oral, QDAILYPRN, Starting on Fri07/23/24 at 0150, Until 07/24/24 at 1706, Routine, Constipati on [facility] magnesium hydroxide (MILK OF MAGNESIA) 400 mg/5 mL suspension 30 mL 2023-08 07:50: 20 07-24 23:06 :47 No 30mL 30 mL, Oral, QDAILYPRN, Starting on Fri07/23/24 at 0150, Until 07/24/24 at 1706, Routine, Constipati on [facility] benzocaine- menthol (DERMOPLAST ) 20-0.5 % topical spray 2023-08 07:50: 20 07-24 23:06 :47 No Topical, PRN, Starting on Fri07/23/24 at 0150, Until 07/24/24 at 1706, Routine, Perineum discomfort [facility] human papillomav vac,9-dillon(P F) (GARDASIL-9 ) syringe 0.5 mL 2023-08 07:50: 20 07-24 23:06 :47 No .5mL [facility] FENTanyl (PF) (SUBLIMAZE) injection 2023-08 03:40: 00 Yes Epidural, ONCE INTRA PROCEDURE, Starting on Tracey 07/22/24 at 2140, Until Discontinu ed, Routine, Intra-op [facility] [id number] fum-folic 27 mg iron- 1 mg folic tablet 2023-08 00:00: 00 Yes [id number] 1{tbl} Take 1 tablet by mouth in the morning. [facility] docusate 100 mg capsule 2023-08 00:00: 00 Yes [id number] 200mg Take 2 capsules by mouth once daily as needed for Constipati on. [facility] ferrous sulfate 325 mg (65 mg iron) tablet 2023-08 00:00: 00 Yes [id number] 325mg Take 1 tablet by mouth in the morning. [facility] ropivacaine 0.2 % (NAROPIN (PF)) epidural infusion 2023-08 16:33: 00 Yes Epidural, ONCE INTRA PROCEDURE, Starting on Tracey 07/22/24 at 1033, Until Discontinu ed, Routine, Intra-op [facility] lidocaine-e pinephrine (XYLOCAINE W/EPINEPHRI NE) 1.5 %-1:200,000 injection 2023-08 16:31: 00 Yes Epidural, ONCE INTRA PROCEDURE, Starting on Tracey 07/22/24 at 1031, Until Discontinu ed, Routine, Intra-op [facility] sodium citrate-cit geoff acid (BICITRA) 500-334 mg/5 mL solution 30 mL 2023-08 15:31: 11 07-22 16:05 :00 No 30mL 30 mL, Oral, PRE-PROCED URE ONCE, 1 dose, Starting on Tracey 07/22/24 at 0931, Until Tracey 07/22/24 at 1005, Routine, Surgery/Pr ocedure [facility] morpHINE injection 4 mg 2023-08 09:38: 00 07-22 10:03 :00 No 4mg 4 mg, Slow IV Push, ONCE, 1 dose, On Tracey 07/22/24 at 0345, Routine [facility] lactated ringers IV infusion 1,000 mL 2023-08 2-05 07:15: 00 07-23 07:50 :23 No 1000mL at 75 mL/hr, 1,000 mL, IV Infusion, CONTINUOUS , Starting on Tracey 07/22/24 at 0115, Until 07/23/24 at 0150, Routine [facility] alum-mag hydroxide-s imeth (MAG-AL PLUS) 200-200-20 mg/5 mL suspension 30 mL 2023-08 01:51: 00 07-05 02:04 :00 No 30mL 30 mL, Oral, ONCE, 1 dose, On 07/04/24 at 2000, Routine [facility] metroNIDAZO LE 500 mg tablet 2023-08 00:00: 00 07-23 00:00 :00 No [id number] 500mg Take 1 tablet by mouth every 12 (twelve) hours. [facility] proMETHazin e 25 mg tablet 2023-08 00:00: 00 07-23 00:00 :00 No [id number] 25mg Take 1 tablet by mouth every 4 (four) hours as needed for Nausea and Vomiting (N/V). [facility] azithromyci n (ZITHROMAX) 500 mg tablet 2023-08 00:00: 00 06-04 04:59 :00 No [id number] 01 1000mg Take 2 tablets by mouth once now for 1 dose. [facility] Iron Fum & P-FA-Vit B & C No.9 (INTEGRA PLUS) 125 mg iron- 1 mg Cap 2023-08 0-16 00:00: 00 07-23 00:00 :00 No [id number] 1{capsu le} Take 1 capsule by mouth in the morning. [facility] Dose Unknown - 00:00: 00 No TAKE 1 TABLET BY MOUTH EVERY DAY -18 00:00: 00 No TAKE 1 TABLET BY MOUTH EVERY DAY -18 00:00: 00 No 10 TAKE 1 TABLET [...] Unknown 2021-0 8-08 00:00: 00 No 300 TAKE 1 [...] EVERY 6 HOURS FOR 10 DAYS 2021-0 720 00:00: 00 No 300 citalopram 10 mg tablet 2021-0 7-19 00:00: 00 No 1mg citalopram 10 mg tablet 2021-0 7-19 00:00: 00 No 1mg citalopram 10 mg tablet 2021-0 7-19 00:00: 00 No 1mg citalopram 10 mg tablet 2021-0 7-19 00:00: 00 No 1mg TAKE 1 [...] 7-12 00:00: 00 No 100 &lt 2022-0 7-11 00:00: 00 No 500 [...] NEEDED 2022-0 7-11 00:00: 00 No 25 Dose Unknown 2022-0 6-16 00:00: 00 No [...] tablet 0 2- 00:00: 00 No 1mg doxycycline monohydrate 100 [...] Mcpherson Take 1 Tablet Once a Day [facility] VITAFOL ULTRA (PRENAT-FE POLY-METHFO L-FA-DHA) 29-0.6-0.4- 200 MG CAPS 10-07 00:00: 00 Yes Colette Manning 1{Capsu le} 1xD take 1 capsule by mouth daily [facility] BLOOD PRESSURE (BLOOD PRESSURE MONITORING) KIT 10-07 00:00: 00 Yes Colette Manning take twice daily [facility] PNV 67-iron ps-folate no.1-dha (VITAFOL ULTRA) 29 mg iron- 1 mg-200 mg Cap 03-20 00:00: 00 Yes [id number] Take 1 TAB-CAP/M2 by mouth daily. [facility] PNV 67-iron ps-folate no.1-dha (VITAFOL ULTRA) 29 mg iron- 1 mg-200 mg Cap 03-20 00:00: 00 07-23 00:00 :00 No [id number] Take 1 TAB-CAP/M2 by mouth daily. [facility] No known medications No Un adrian [facility] Immunizations Ordered Immunization Name Filled Immunization Name Date Status Comments Source TDAP 2024-06-01 00:00:00 Completed [facility] TDAP (ADACEL) VACCINE 2019-08-17 00:00:00 Completed [facility] TDAP (ADACEL) VACCINE 2019-08-17 00:00:00 Completed [facility] TDAP (ADACEL) VACCINE 2019-08-17 00:00:00 Completed [facility] TDAP (ADACEL) VACCINE 2019-08-17 00:00:00 Completed [facility] TDAP (ADACEL) VACCINE 2019-08-17 00:00:00 Completed Influenza Virus Vaccine Quad .5 mL IM 6+ MO 2019-06-14 00:00:00 Completed [facility] Influenza Virus Vaccine Quad .5 mL IM 6+ MO 2019-06-14 00:00:00 Completed [facility] Influenza Virus Vaccine Quad .5 mL IM 6+ MO 2019-06-14 00:00:00 Completed [facility] Influenza Virus Vaccine Quad .5 mL IM 6+ MO 2019-06-14 00:00:00 Completed [facility] Influenza Virus Vaccine Quad .5 mL IM 6+ MO (FLUZONE/FLULAVAL/F LUARIX) 2019-06-14 00:00:00 Completed [facility] HPV9 2018-12-11 00:00:00 Completed Hep A, [...] 6+ MO (FLUZONE/FLULAVAL/F LUARIX) Unknown Completed [facility] TDAP (ADACEL) VACCINE Unknown Completed [facility] Vital Signs Vital Name Observation Time Observation Value Comments S ource Systolic blood pressure 2024-07-24 05:51:00 113 mm[Hg] [facility] Diastolic blood pressure 2024-07-24 05:51:00 60 mm[Hg] [facility] Heart rate 2024-07-24 05:51:00 64 /min Un[facility] Body temperature 2024-07-24 05:51:00 36.39 Vicky [facility] Respiratory rate 2024-07-24 05:51:00 18 /min [facility] Oxygen saturation in Arterial blood by Pulse oximetry 2024-07-24 05:51:00 97 /min [facility] Body weight 2024-07-22 12:30:00 124.785 kg [facility] BMI 2024-07-22 12:30:00 45.78 kg/m2 [facility] Body height 2024-07-22 07:45:00 165.1 cm [facility] Systolic blood pressure 2024-07-20 21:17:00 127 mm[Hg] [facility] Diastolic blood pressure 2024-07-20 21:17:00 86 mm[Hg] [facility] Heart rate 2024-07-20 21:17:00 116 /min [facility] Body temperature 2024-07-20 21:17:00 36.61 Vicky [facility] Respiratory rate 2024-07-20 21:17:00 18 /min [facility] Body height 2024-07-20 21:17:00 165.1 cm [facility] Body weight 2024-07-20 21:17:00 123.86 kg [facility] BMI 2024-07-20 21:17:00 45.44 kg/m2 [facility] Systolic blood pressure 2024-07-09 17:21:00 134 mm[Hg] [facility] Diastolic blood pressure 2024-07-09 17:21:00 88 mm[Hg] [facility] Heart rate 2024-07-09 17:21:00 103 /min [facility] Body temperature 2024-07-09 17:21:00 36.28 Vicky [facility] Respiratory rate 2024-07-09 17:21:00 18 /min [facility] Body height 2024-07-09 17:21:00 165.1 cm [facility] Body weight 2024-07-09 17:21:00 121.224 kg [facility] BMI 2024-07-09 17:21:00 44.47 kg/m2 [facility] Systolic blood pressure 2024-07-05 03:39:00 112 mm[Hg] [facility] Diastolic blood pressure 2024-07-05 03:39:00 62 mm[Hg] [facility] Heart rate 2024-07-05 03:39:00 91 /min [facility] Oxygen saturation in Arterial blood by Pulse oximetry 2024-07-05 03:39:00 98 /min [facility] Body temperature 2024-07-05 01:19:00 36.83 Vicky [facility] Respiratory rate 2024-07-05 01:19:00 18 /min [facility] Body height 2024-07-05 01:19:00 165.1 cm [facility] Body weight 2024-07-05 01:19:00 122.018 kg [facility] BMI 2024-07-05 01:19:00 44.76 kg/m2 [facility] Systolic blood pressure 2024-06-28 18:30:00 114 mm[Hg] [facility] Diastolic blood pressure 2024-06-28 18:30:00 58 mm[Hg] [facility] Heart rate 2024-06-28 18:30:00 85 /min [facility] Oxygen saturation in Arterial blood by Pulse oximetry 2024-06-28 18:30:00 98 /min [facility] Body temperature 2024-06-28 17:31:00 36.94 Vicky [facility] Respiratory rate 2024-06-28 17:31:00 18 /min [facility] Body height 2024-06-28 17:10:00 165.1 cm [facility] Body weight 2024-06-28 17:10:00 120.203 kg [facility] BMI 2024-06-28 17:10:00 44.10 kg/m2 [facility] Systolic blood pressure 2024-06-23 18:22:00 109 mm[Hg] [facility] Diastolic blood pressure 2024-06-23 18:22:00 60 mm[Hg] [facility] Heart rate 2024-06-23 18:22:00 101 /min [facility] Body temperature 2024-06-23 18:22:00 35.83 Vicky [facility] Respiratory rate 2024-06-23 18:22:00 18 /min [facility] Body height 2024-06-23 18:22:00 165.1 cm [facility] Body weight 2024-06-23 18:22:00 119.75 kg [facility] BMI 2024-06-23 18:22:00 43.93 kg/m2 [facility] Systolic blood pressure 2024-06-19 12:30:00 84 mm[Hg] [facility] Diastolic blood pressure 2024-06-19 12:30:00 57 mm[Hg] [facility] Heart rate 2024-06-19 12:30:00 72 /min [facility] Oxygen saturation in Arterial blood by Pulse oximetry 2024-06-19 12:30:00 98 /min [facility] Body temperature 2024-06-19 09:24:00 36.44 Vicky [facility] Respiratory rate 2024-06-19 09:24:00 18 /min [facility] Body height 2024-06-19 09:24:00 165.1 cm [facility] Body weight 2024-06-19 09:24:00 118.661 kg [facility] BMI 2024-06-19 09:24:00 43.53 kg/m2 [facility] Systolic blood pressure 2024-06-09 17:33:00 94 mm[Hg] [facility] Diastolic blood pressure 2024-06-09 17:33:00 76 mm[Hg] [facility] Heart rate 2024-06-09 17:26:00 84 /min [facility] Body temperature 2024-06-09 17:26:00 36.5 Vicky [facility] Respiratory rate 2024-06-09 17:26:00 18 /min [facility] Body height 2024-06-09 17:26:00 165.1 cm [facility] Body weight 2024-06-09 17:26:00 117.283 kg [facility] BMI 2024-06-09 17:26:00 43.03 kg/m2 [facility] Systolic blood pressure 2024-06-04 09:30:00 118 mm[Hg] [facility] Diastolic blood pressure 2024-06-04 09:30:00 72 mm[Hg] [facility] Heart rate 2024-06-04 09:30:00 87 /min [facility] Oxygen saturation in Arterial blood by Pulse oximetry 2024-06-04 09:30:00 96 /min [facility] Respiratory rate 2024-06-04 09:00:00 19 /min [facility] Body temperature 2024-06-04 06:22:00 36.83 Vicky [facility] Body height 2024-06-04 06:00:00 165.1 cm [facility] Body weight 2024-06-04 06:00:00 117.028 kg [facility] BMI 2024-06-04 06:00:00 42.93 kg/m2 [facility] Systolic blood pressure 2024-06-01 18:05:00 115 mm[Hg] [facility] Diastolic blood pressure 2024-06-01 18:05:00 73 mm[Hg] [facility] Heart rate 2024-06-01 18:05:00 98 /min [facility] Body temperature 2024-06-01 18:05:00 36.61 Vicky [facility] Respiratory rate 2024-06-01 18:05:00 18 /min [facility] Body height 2024-06-01 18:05:00 165.1 cm [facility] Body weight 2024-06-01 18:05:00 117.845 kg [facility] BMI 2024-06-01 18:05:00 43.23 kg/m2 [facility] Systolic blood pressure 2024-02-08 03:23:00 143 mm[Hg] [facility] Diastolic blood pressure 2024-02-08 03:23:00 82 mm[Hg] [facility] Heart rate 2024-02-08 03:23:00 93 /min [facility] Body temperature 2024-02-08 03:23:00 37.39 Vicky [facility] Respiratory rate 2024-02-08 03:23:00 21 /min [facility] Body height 2024-02-08 03:23:00 165.1 cm [facility] Body weight 2024-02-08 03:23:00 106.641 kg [facility] BMI 2024-02-08 03:23:00 39.12 kg/m2 [facility] Oxygen saturation in Arterial blood by Pulse oximetry 2024-02-08 03:23:00 100 /min [facility] Systolic blood pressure 2019-08-31 23:06:00 93 mm[Hg] [facility] Diastolic blood pressure 2019-08-31 23:06:00 64 mm[Hg] [facility] Heart rate 2019-08-31 23:06:00 90 /min [facility] Body temperature 2019-08-31 23:06:00 36.39 Vicky [facility] Respiratory rate 2019-08-31 23:06:00 18 /min [facility] Body height 2019-08-31 23:06:00 160 cm [facility] Body weight 2019-08-31 23:06:00 101.606 kg [facility] BMI 2019-08-31 23:06:00 39.68 kg/m2 [facility] Systolic blood pressure 2019-04-14 19:00:00 117 mm[Hg] [facility] Diastolic blood pressure 2019-04-14 19:00:00 70 mm[Hg] [facility] Heart rate 2019-04-14 19:00:00 79 /min [facility] Body temperature 2019-04-14 19:00:00 36.89 Vicky [facility] Respiratory rate 2019-04-14 19:00:00 18 /min [facility] Body height 2019-04-14 19:00:00 160 cm [facility] Body weight 2019-04-14 19:00:00 87.544 kg [facility] BMI 2019-04-14 19:00:00 34.19 kg/m2 [facility] Systolic blood pressure 2019-03-17 14:24:00 112 mm[Hg] [facility] Diastolic blood pressure 2019-03-17 14:24:00 70 mm[Hg] [facility] Heart rate 2019-03-17 14:24:00 77 /min [facility] Body temperature 2019-03-17 14:24:00 36.83 Vicky [facility] Respiratory rate 2019-03-17 14:24:00 18 /min [facility] Body height 2019-03-17 14:24:00 160 cm [facility] Body weight 2019-03-17 14:24:00 90.266 kg [facility] BMI 2019-03-17 14:24:00 35.25 kg/m2 [facility] BP Systolic 2022-05-07 17:13:00 117 [...] blood pressure, diastolic 2019-10-14 13:44:33 84 mm[Hg] [facility], systolic 2019-10-14 13:44:33 125 mm[Hg] [facility] pulse rate E&M 2019-10-14 13:44:33 87 /min [facility] oxygen saturation, oximetry 2019-10-14 13:44:33 97 % [facility] respiratory rate E&M 2019-10-14 13:44:33 20 /min [facility] temperature site 2019-10-14 13:44:33 oral [facility] temperature E&M 2019-10-14 13:44:33 98.3 [degF] [facility] weight E&M 2019-10-14 13:44:33 238.8 [lb_av] [facility] height E&M 2019-10-14 13:44:33 63 [in_i] [facility], [facility] 2019-10-07 14:07:37 98 % [facility] blood pressure, diastolic 2019-10-07 14:07:37 83 mm[Hg] [facility] blood pressure, systolic 2019-10-07 14:07:37 130 mm[Hg] [facility] pulse rate E&M 2019-10-07 14:07:37 91 /min L [facility] Health temperature E&M 2019-10-07 14:07:37 98.6 [degF] [facility] temperature site 2019-10-07 14:07:37 oral [facility] height E&M 2019-10-07 14:07:37 63 [in_i] [facility] weight E&M 2019-10-07 14:07:37 235 [lb_av] [facility] Procedures Procedure Date / Time Performed Performing Clinician Source CBC WITH DIFF 2024-07-23 12:09:00 Keith Hwang [facility] VENOUS CORD GAS 2024-07-23 03:58:00 [facility] CENTRAL NEURAXIAL BLOCK 2024-07-22 16:04:00 Logan Long [facility] CBC WITH DIFF 2024-07-22 05:38:00 Hien Flores [facility] HEPATITIS B SURFACE ANTIGEN 2024-07-22 05:38:00 Hien Flores [facility] HB ABO GROUPING 2024-07-22 05:38:00 [facility] RHO (D) IMMUNE GLOBULIN 2024-07-22 05:38:00 Syd Hwang [facility] HIV 1/2 AG-AB WITH REFLEX 2024-07-22 05:38:00 Hien Flores [facility] SYPHILIS IGG/IGM 2024-07-22 05:38:00 Hien Flores [facility] POCT URINALYSIS 2024-07-20 21:18:00 Lashonda Milligan [facility] GROUP B STREP SCREEN CULTURE 2024-07-09 17:45:00 Lashonda Milligan [facility] GROUP B STREPTOCOCCUS BY PCR 2024-07-09 17:45:00 Lashonda Milligan [facility] POCT URINALYSIS 2024-07-09 17:21:00 Lashonda Milligan [facility] URINALYSIS 2024-06-28 17:49:00 Anna Santana [facility] ADC CLC OR LCC ONLY - WET PREP 2024-06-28 17:49:00 [facility] POCT URINALYSIS 2024-06-23 18:24:00 Lashonda Milligan [facility] ADC ONLY - FERN TEST 2024-06-19 13:13:00 Adum, Mariela Mcmahon [facility] US PELVIS > 14 WEEKS 2024-06-19 12:47:02 Adum, Mariela Mcmahon [facility] ADC ONLY - FERN TEST 2024-06-19 09:45:00 Adum, Mariela Mcmahon [facility] POCT URINALYSIS 2024-06-09 17:25:00 Lashonda Milligan [facility] URINALYSIS 2024-06-04 06:44:00 Guerrero Whitaker [facility] ADC CLC OR LCC ONLY - WET PREP 2024-06-04 06:44:00 Guerrero Whitaker [facility] GLUCOSE 1 HOUR POST PRANDIAL 2024-06-01 19:14:00 Lashonda Milligan [facility] CBC WITH DIFF 2024-06-01 19:14:00 Lashonda Milligan [facility] HEPATITIS B SURFACE ANTIGEN 2024-06-01 19:14:00 Lashonda Milligan [facility] HCV ANTIBODY 2024-06-01 19:14:00 Lashonda Milligan [facility] HB INDIRECT ANTIGLOBULIN TEST 2024-06-01 19:14:00 Lashonda Milligan [facility] HIV 1/2 AG-AB WITH REFLEX 2024-06-01 19:14:00 Lashonda Milligan [facility] RUBELLA SCREEN IGG 2024-06-01 19:14:00 Marysol Milligan [facility] VZV ANTIBODY SCREEN 2024-06-01 19:14:00 Maddy Milligan [facility] URINE CULTURE 2024-06-01 19:14:00 Lashonda Milligan [facility] GC & CHLAMYDIA AMPLIFIED ASSAY 2024-06-01 19:14:00 Lashonda Milligan [facility] LAB ONLY PAP SMEAR-LIQUID BASED 2024-06-01 19:14:00 Lashonda Milligan [facility] TRICHOMONAS AMPLIFIED ASSAY 2024-06-01 19:14:00 Lashonda Milligan [facility] PAP SMEAR-LIQUID BASED-CP 2024-06-01 19:14:00 Lashonda Milligan [facility] SYPHILIS IGG/IGM 2024-06-01 19:14:00 Lashonda Milligan [facility] TDAP VACCINE, >11 YRS, IM 2024-06-01 18:45:16 Lashonda Milligan [facility] POCT TEST 2024-06-01 00:00:00 Maddy Milligan [facility] POCT URINALYSIS W/O SPECIFIC GRAVITY 2024-06-01 00:00:00 Lashonda Milligan [facility] CONSENT/REFUSAL FOR DIAGNOSIS AND TREATMENT 2019-10-25 05:01:00 Doctor Unassigned, [place] [facility] Nutrition Counseling (Obese) 2019-10-14 14:28:44 Heaven Morrow [facility] Case Mgmt Visit, Non-Billable [id number] 2019-10-07 15:54:24 Yenni Gross [facility] Vaccines Ordered - Print Consent/Declination Forms 2019-10-07 15:46:26 Colette Chowdary [facility] POCT URINALYSIS W/O SPECIFIC GRAVITY 2019-08-31 00:00:00 Emmy Bonilla [facility] <14 WEEKS US LIMITED 2019-04-16 17:44:02 Guerrero Whitaker [facility] CBC WITH DIFFERENTIAL 2019-04-14 21:36:00 Guerrero Whitaker [facility] ASSIGNMENT OF BENEFITS 2019-04-14 20:00:31 Docto r Unassigned, [place] [facility] <14 WEEKS US LIMITED 2019-03-20 23:54:07 Guerrero Whitaker [facility] TOTAL BETA HCG ASSAY 2019-03-17 15:19:00 Guerrero Whitaker [facility] GC & CHLAMYDIA AMPLIFIED ASSAY 2019-03-17 14:53:00 Guerrero Whitaker [facility] GALV ONLY - VAGINAL PATHOGENS BY DNA PROBE 2019-03-17 14:53:00 Guerrero Whitaker [facility] ADC / LCC - DRUG SCREEN TRIAGE 2019-03-17 14:53:00 Guerrero Whitaker [facility] POCT TEST 2019-03-17 00:00:00 WhitakerGuerrero Zaheer [facility] POCT URINALYSIS W/O SPECIFIC GRAVITY 2019-03-17 00:00:00 Mary Jane [place]ren Zaheer [facility] Plan of Care Planned Activity Planned Date Details Comments Source Goal Plan of Care Note [code = 61140-5] Goal Plan of Care Note [code = 95948-6] Goal Plan of Care Note [code = 50237-6] Goal Plan of Care Note [code = 41981-1] Goal Plan of Care Note [code = 27768-7] Goal Plan of Care Note [code = 02953-5] Goal Plan of Care Note [code = 57092-8] Goal Plan of Care Note [code = 41208-6] Goal Plan of Care Note [code = 58490-1] Goal Plan of Care Note [code = 76897-3] Goal Plan of Care Note [code = 91716-0] Goal Plan of Care Note [code = 91699-9] Goal Plan of Care Note [code = 21781-9] Goal Plan of Care Note [code = 92880-3] Goal Plan of Care Note [code = 96522-9] Goal Plan of Care Note [code = 68175-0] Goal Plan of Care Note [code = 36944-8] Goal Plan of Care Note [code = 63628-4] Goal Plan of Care Note [code = 40492-8] Goal Plan of Care Note [code = 70857-6] Goal Plan of Care Note [code = 57600-4] Goal Plan of Care Note [code = 25618-3] Goal Plan of Care Note [code = 87131-9] Goal Plan of Care Note [code = 43727-0] Goal Plan of Care Note [code = 22566-3] Goal Plan of Care Note [code = 60341-6] Goal Plan of Care Note [code = 23346-6] Goal Plan of Care Note [code = 55058-0] Goal Plan of Care Note [code = 67258-1] Goal Plan of Care Note [code = 97152-7] Goal Plan of Care Note [code = 67968-7] Goal Plan of Care Note [code = 24443-6] Goal Plan of Care Note [code = 87566-2] Goal Plan of Care Note [code = 59405-8] Goal Plan of Care Note [code = 65489-9] Goal Plan of Care Note [code = 19807-3] Goal Plan of Care Note [code = 19215-3] Goal Plan of Care Note [code = 44629-1] Goal Plan of Care Note [code = 11043-6] Goal Plan of Care Note [code = 76278-4] Goal Plan of Care Note [code = 50081-7] Goal Plan of Care Note [code = 85902-1] Goal Plan of Care Note [code = 72464-8] Goal Plan of Care Note [code = 05050-8] Goal Plan of Care Note [code = 51541-0] Goal Plan of Care Note [code = 12318-8] Goal Plan of Care Note [code = 30808-5] Goal Plan of Care Note [code = 95486-4] Goal Plan of Care Note [code = 11561-8] Goal Plan of Care Note [code = 56546-6] Goal Plan of Care Note [code = 64699-1] Goal Plan of Care Note [code = 09435-0] Goal Plan of Care Note [code = 76380-0] Goal Plan of Care Note [code = 22529-7] Goal Plan of Care Note [code = 96419-7] Goal Plan of Care Note [code = 62602-9] Goal Plan of Care Note [code = 92675-0] Goal Plan of Care Note [code = 53233-2] Goal Plan of Care Note [code = 13313-5] Goal Plan of Care Note [code = 26688-3] Goal Plan of Care Note [code = 31094-1] Goal Plan of Care Note [code = 23431-7] Goal Plan of Care Note [code = 86433-5] Goal Plan of Care Note [code = 90606-6] Goal Plan of Care Note [code = 81840-1] Goal Plan of Care Note [code = 95318-3] Goal Plan of Care Note [code = 22683-9] Goal Plan of Care Note [code = 40286-9] Goal Plan of Care Note [code = 21809-5] Goal Plan of Care Note [code = 68056-6] Goal Plan of Care Note [code = 83814-1] Goal Plan of Care Note [code = 30854-8] Goal Plan of Care Note [code = 28232-4] Goal Plan of Care Note [code = 74324-0] Goal Plan of Care Note [code = 96110-9] Goal Plan of Care Note [code = 48428-8] Goal Plan of Care Note [code = 03831-6] Goal Plan of Care Note [code = 07263-9] Goal Plan of Care Note [code = 43332-2] Goal Plan of Care Note [code = 22115-7] Goal Plan of Care Note [code = 13670-3] Goal Plan of Care Note [code = 81072-5] Goal Plan of Care Note [code = 83340-2] Goal Plan of Care Note [code = 47500-1] Goal Plan of Care Note [code = 84393-9] Goal Plan of Care Note [code = 77867-7] Goal Plan of Care Note [code = 15779-0] Goal Plan of Care Note [code = 52586-1] Goal Plan of Care Note [code = 03982-2] Goal Plan of Care Note [code = 40757-9] Goal Plan of Care Note [code = 00296-0] Goal Plan of Care Note [code = 10627-3] Goal Plan of Care Note [code = 20305-0] Goal Plan of Care Note [code = 33391-2] Goal Plan of Care Note [code = 55514-1] Goal Plan of Care Note [code = 47356-0] Goal Plan of Care Note [code = 25039-4] Goal Plan of Care Note [code = 18517-4] Goal Plan of Care Note [code = 62358-8] Goal Plan of Care Note [code = 17596-9] Goal Plan of Care Note [code = 66505-1] Goal Plan of Care Note [code = 05068-2] Goal Plan of Care Note [code = 92837-8] Goal Plan of Care Note [code = 84597-4] Goal Plan of Care Note [code = 94879-9] Goal Plan of Care Note [code = 81866-5] Goal Plan of Care Note [code = 02218-1] Goal Plan of Care Note [code = 46750-3] Goal Plan of Care Note [code = 35012-3] Goal Plan of Care Note [code = 65066-6] Goal Plan of Care Note [code = 73987-5] Goal Plan of Care Note [code = 58361-0] Goal Plan of Care Note [code = 57040-5] Goal Plan of Care Note [code = 12550-0] Goal Plan of Care Note [code = 25254-8] Goal Plan of Care Note [code = 51041-0] Goal Plan of Care Note [code = 18612-7] Goal Plan of Care Note [code = 99463-0] Goal Plan of Care Note [code = 87427-0] Goal Plan of Care Note [code = 35641-6] Goal Plan of Care Note [code = 83497-9] Goal Plan of Care Note [code = 91568-7] Goal Plan of Care Note [code = 60987-4] Goal Plan of Care Note [code = 16444-5] Goal Plan of Care Note [code = 64333-8] Goal Plan of Care Note [code = 50305-0] Goal Plan of Care Note [code = 57105-7] Goal Plan of Care Note [code = 07755-5] Goal Plan of Care Note [code = 48103-2] Goal Plan of Care Note [code = 73674-4] Goal Plan of Care Note [code = 76370-5] Goal Plan of Care Note [code = 44349-0] Goal Plan of Care Note [code = 39938-8] Goal Plan of Care Note [code = 43501-5] Goal Plan of Care Note [code = 36534-5] Goal Plan of Care Note [code = 08375-2] Goal Plan of Care Note [code = 00903-7] Goal Plan of Care Note [code = 83973-5] Goal Plan of Care Note [code = 28062-3] Goal Plan of Care Note [code = 90603-6] Goal Plan of Care Note [code = 89289-5] Goal Plan of Care Note [code = 36126-6] Goal Plan of Care Note [code = 79719-3] Goal Plan of Care Note [code = 58911-6] Goal Plan of Care Note [code = 16535-7] Goal Plan of Care Note [code = 95890-9] Goal Plan of Care Note [code = 48516-6] Goal Plan of Care Note [code = 94048-0] Goal Plan of Care Note [code = 37678-7] Goal Plan of Care Note [code = 54847-3] Goal Plan of Care Note [code = 74612-2] Goal Plan of Care Note [code = 02443-3] Goal Plan of Care Note [code = 85674-0] Goal Plan of Care Note [code = 42277-2] Goal Plan of Care Note [code = 67799-4] Goal Plan of Care Note [code = 08212-8] Goal Plan of Care Note [code = 67631-7] Goal Plan of Care Note [code = 58707-4] Goal Plan of Care Note [code = 02119-3] Goal Plan of Care Note [code = 00091-5] Goal Plan of Care Note [code = 03210-8] Goal Plan of Care Note [code = 81362-7] Goal Plan of Care Note [code = 90516-1] Goal Plan of Care Note [code = 92962-3] Goal Plan of Care Note [code = 27083-5] Goal Plan of Care Note [code = 80444-3] Goal Plan of Care Note [code = 18206-2] Goal Plan of Care Note [code = 73004-5] Goal Plan of Care Note [code = 55667-9] Goal Plan of Care Note [code = 17195-0] Goal Plan of Care Note [code = 92077-2] Goal Plan of Care Note [code = 39418-4] Goal Plan of Care Note [code = 84918-9] Goal Plan of Care Note [code = 24155-4] Goal Plan of Care Note [code = 11930-5] Goal Plan of Care Note [code = 05307-9] Goal Plan of Care Note [code = 19349-1] Goal Plan of Care Note [code = 50921-4] Goal Plan of Care Note [code = 84509-1] Goal Plan of Care Note [code = 98980-2] Goal Plan of Care Note [code = 47546-4] Goal Plan of Care Note [code = 07111-2] Goal Plan of Care Note [code = 27416-9] Goal Plan of Care Note [code = 84747-8] Goal Plan of Care Note [code = 02200-0] Goal Plan of Care Note [code = 40726-8] Goal Plan of Care Note [code = 52559-5] Goal Plan of Care Note [code = 75985-1] Goal Plan of Care Note [code = 81516-1] Goal Plan of Care Note [code = 59503-0] Goal Plan of Care Note [code = 41271-2] Goal Plan of Care Note [code = 98325-4] Goal Plan of Care Note [code = 34540-7] Goal Plan of Care Note [code = 83680-6] Goal Plan of Care Note [code = 54900-0] Goal Plan of Care Note [code = 39517-8] Goal Plan of Care Note [code = 42892-3] Goal Plan of Care Note [code = 28459-5] Goal Plan of Care Note [code = 87553-7] Goal Plan of Care Note [code = 36665-1] Goal Plan of Care Note [code = 56185-4] Goal Plan of Care Note [code = 09351-8] Goal Plan of Care Note [code = 76165-5] Goal Plan of Care Note [code = 61404-2] Goal Plan of Care Note [code = 24573-3] Goal Plan of Care Note [code = 84834-2] Goal Plan of Care Note [code = 26471-4] Goal Plan of Care Note [code = 74910-5] Goal Plan of Care Note [code = 46260-7] Encounters Start Date/Time End Date/Time Encounter Type Admission Type Attending [facility] Emergency Department Facility Care Department Encounter ID Source 2024-06-04 04:57:59 Outpatient X [facility] KASI [id number] [facility] 2024-09-09 16:00:00 2024-09-09 16:00:00 Outpatient R LASHONDA MILLIGAN [facility] [id number] [facility] 2024-07-21 19:49:00 2024-07-24 17:06:00 [facility] [id number] 2024-07-21 19:49:00 2024-07-24 17:06:00 Hospital Encounter Shawn Maciel [facility] 1.2.840.114 350.1.13.10 4.2.7.2.686 [id number] [facility] 2024-07-22 09:49:00 2024-07-22 09:49:00 Anesthesia Event Logan Garcia Rakesh Raj [facility] ([facility]) 1.2.840.114 350.1.13.10 4.2.7.2.686 [id number] [facility] 2024-07-20 00:00:00 2024-07-20 15:59:24 Letter (Out) Lashonda Milligan [facility] TIMING ADJUSTER [facility] MATERNAL & CHILD [facility] 1.2.840.114 350.1.13.10 4.2.7.2.686 [id number] [facility] 2024-07-20 15:45:00 2024-07-20 15:57:56 Outpatient R LASHONDA MILLIGAN [facility] [id number] [facility] 2024-07-20 15:45:00 2024-07-20 15:57:56 Routine Visit Lashonda Milligan [facility] TIMING ADJUSTER [facility] & CHILD [facility] 1..840.114 350.1.13.10 4.2.7.2.686 [id number] [facility] 2024-07-14 00:00:00 2024-07-14 13:40:12 Telephone Lashonda Milligan [facility] TIMING ADJUSTER [facility] & CHILD [facility] 1.2.840.114 350.1.13.10 4.2.7.2.686 [id number] [facility] 2024-07-13 15:45:00 2024-07-13 15:45:00 Outpatient R KHANH VARGHESE [facility] [id number] [facility] 2024-07-09 16:15:00 2024-07-09 16:15:00 Outpatient R KHANH VARGHESE [facility] [id number] [facility] 2024-07-09 11:00:00 2024-07-09 11:47:48 Outpatient R MONIQUEPABLOLENA KHANH [facility] [id number] [facility] 2024-07-09 11:00:00 2024-07-09 11:47:48 Routine Visit Khanh Varghese [facility] TIMING ADJUSTER [facility] MATERNAL & CHILD [facility] 1.2.840.114 350.1.13.10 4.2.7.2.686 [id number] [facility] 2024-07-04 18:42:00 2024-07-04 21:50:00 Outpatient X SOLORZANO-HUBERT S, ANNA SOLORZANO-HUBERT S, ANNA [facility] KASI [id number] [facility] 2024-07-04 18:42:00 2024-07-04 21:50:00 Emergency Solorzano-Hubert s, Anna [facility] 1..840.114 350.1.13.10 4.2.7.2.686 [id number] [facility] 2024-06-28 11:14:00 2024-06-28 12:55:00 Outpatient X SOLORZANO-HUBERT S, ANNA SOLORZANO-HUBERT S, ANNA [facility] KASI [id number] [facility] 2024-06-28 11:14:00 2024-06-28 12:55:00 Emergency Solorzano-Hubert s, Anna [facility] AT [facility] ..840.114 350.1.13.10 4.2.7.2.686 [id number] [facility] 2024-06-23 12:30:00 2024-06-23 13:05:38 Outpatient R LASHONDA MILLIGAN [facility] [id number] [facility] 2024-06-23 12:30:00 2024-06-23 13:05:38 Routine Visit Lashonda Milligan [facility] TIMING ADJUSTER [facility] & CHILD [facility] 1.2.840.114 350.1.13.10 4.2.7.2.686 [id number] [facility] 2024-06-19 04:13:00 2024-06-19 08:45:00 Outpatient X ADUM, MARIELA ADUM, MARIELA [facility] KASI [id number] [facility] 2024-06-19 04:13:00 2024-06-19 08:45:00 Emergency Oriental Orthodox, Nadim Adum, Mariela L [facility] AT [facility] 1.2.840.114 350.1.13.10 4.2.7.2.686 [id number] [facility] 2024-06-15 00:00:00 2024-06-15 08:45:36 Abstract Lashonda Milligan [facility] TIMING ADJUSTER [facility] CHILD [facility] 1.2.840.114 350.1.13.10 4.2.7.2.686 [id number] [facility] 2024-06-09 00:00:00 2024-06-09 13:07:20 Letter (Out) Lashonda Milligan [facility] TIMING ADJUSTER [facility] & CHILD [facility] 1.2.840.114 350.1.13.10 4.2.7.2.686 [id number] [facility] 2024-06-09 12:30:00 2024-06-09 13:06:31 Outpatient R LASHONDA MILLIGAN [facility] [id number] [facility] 2024-06-09 12:30:00 2024-06-09 13:06:31 Routine Visit Lashonda Milligan [facility] TIMING ADJUSTER [facility] & CHILD [facility] 1.2.840.114 350.1.13.10 4.2.7.2.686 [id number] [facility] 2024-06-08 00:00:00 2024-06-08 13:49:04 Abstract Lashonda Milligan [facility] TIMING ADJUSTER [facility] & CHILD [facility] 1.2.840.114 350.1.13.10 4.2.7.2.686 [id number] [facility] 2024-06-04 01:03:00 2024-06-04 04:45:00 Outpatient X GUERRERO WHITAKER VIEN [facility] KASI [id number] [facility] 2024-06-04 01:03:00 2024-06-04 04:45:00 Emergency Guerrero Whitaker [facility] AT [facility] 1.2.840.114 350.1.13.10 4.2.7.2.686 [id number] [facility] 2024-06-03 00:00:00 2024-06-03 13:29:05 Telephone Lashonda Milligan [facility] TIMING ADJUSTER [facility] & CHILD [facility] 1.2840.114 350.1.13.10 4.2.7.2.686 [id number] [facility] 2024-06-02 00:00:00 2024-06-02 08:24:06 Telephone Lashonda Milligan [facility] TIMING ADJUSTER [facility] & CHILD [facility] 1.2.840.114 350.1.13.10 4.2.7.2.686 [id number] [facility] 2024-06-01 12:45:00 2024-06-01 14:40:38 Outpatient R LASHONDA MILLIGAN [facility] [id number] [facility] 2024-06-01 12:45:00 2024-06-01 14:40:38 Initial Visit Lashonda Milligan [facility] TIMING ADJUSTER [facility] & CHILD [facility] 1.2.840.114 350.1.13.10 4.2.7.2.686 [id number] [facility] 2024-05-27 12:15:00 2024-05-27 12:15:00 Outpatient R LASHONDA MILLIGAN [facility] [id number] [facility] 2024-02-09 09:15:00 2024-02-09 09:15:00 Outpatient R KHANH VARGHESE [facility] [id number] [facility] 2024-02-07 22:27:00 2024-02-07 23:41:00 Emergency X STACEY Mamadou [facility] ERT [id number] [facility] 2024-02-07 22:27:00 2024-02-07 23:41:00 Emergency StaceyMamadou Hellen [facility] 1.2.840.114 350.1.13.10 4.2.7.2.686 [id number] [facility] 2023-12-18 14:30:00 2023-12-18 14:30:00 Outpatient R MARIELA CHEN [facility] [id number] [facility] 2023-12-17 16:09:29 2023-12-17 16:09:29 Outpatient SFA SFA [id number] Cj Carlisle 2023-12-12 14:00:00 2023-12-12 14:00:00 Outpatient R MARIELA CHEN [facility] [id number] [facility] 2023-11-11 15:00:20 2023-11-11 15:00:20 Outpatient SFA SFA [id number] Cj Guzman Orestes 2023-10-30 09:20:09 2023-10-30 09:20:09 Outpatient SFA SFA [id number] Cj Guzman Oretses 2023-10-16 14:55:13 2023-10-16 14:55:13 Outpatient SFA SFA [id number] Cj Guzman Orestes 2023-10-13 10:03:24 2023-10-13 10:03:24 Outpatient SFA SFA [id number] Cjjustino Carlisle 2023-09-03 17:01:34 2023-09-03 17:01:34 Outpatient SFA SFA [id number] Cj Carlisle 2023-08-05 17:09:08 2023-08-05 17:09:08 Outpatient SFA SFA [id number] Cj Carlisle 2023-07-11 10:26:43 2023-07-11 10:26:43 Outpatient SFA SFA [id number] Cj Carlisle 2023-07-05 12:46:18 2023-07-05 12:46:18 Outpatient SFA SFA [id number] Cj Carlisle 2023-06-04 16:14:59 2023-06-04 16:14:59 Outpatient SFA SFA [id number] Cj Carlisle 2023-05-21 14:50:27 2023-05-21 14:50:27 Outpatient SFA SFA [id number] Cj Carlisle 2023-05-07 13:29:15 2023-05-07 13:29:15 Outpatient SFA SFA [id number] Cj Carlisle 2023-05-04 14:07:34 2023-05-04 14:07:34 Outpatient SFA SFA [id number] Cj Carlisle 2023-04-30 15:40:18 2023-04-30 15:40:18 Outpatient SFA SFA [id number] Cj Carlisle 2023-04-08 12:40:22 2023-04-08 12:40:22 Outpatient SFA SFA [id number] Cj Guzman Orestes 2023-03-28 13:58:41 2023-03-28 13:58:41 Outpatient SFA SFA [id number] Cj Guzman Orestes 2023-03-24 12:23:25 2023-03-24 12:23:25 Outpatient SFA SFA [id number] Cj Guzman Orestes 2023-03-10 14:14:23 2023-03-10 14:14:23 Outpatient SFA SFA [id number] Cj Guzman Orestes 2023-02-17 13:57:55 2023-02-17 13:57:55 Outpatient SFA SFA [id number] Cj Carlisle 2022-12-31 14:01:12 2022-12-31 14:01:12 Outpatient SFA SFA [id number] Cj Carlisle 2022-10-17 13:22:30 2022-10-17 13:22:30 Outpatient SFA SFA [id number] Cj Carlisle 2022-07-04 16:27:15 2022-07-04 16:27:15 Outpatient SFA SFA [id number] Cj Carlisle 2022-06-25 09:30:43 2022-06-25 09:30:43 Outpatient SFA SFA [id number] Cj Carlisle 2022-04-04 00:00:00 2022-04-04 00:00:00 Outpatient Visit 3vr96y4w- 1xl2-6566 -i50u-758 a0gejx810 [id number] 8nv02a0v-7 cf4-4333-a 14d-616d2c ftz532 2022-03-29 00:00:00 2022-03-29 00:00:00 Outpatient Visit 15v0s5kw- 6z93-219y -aee4-f53 ly7y0g7dk [id number] 73s0b5lt-9 c34-423x-z ee4-f53cf0 d1d1ff 2022-03-23 00:00:00 2022-03-23 00:00:00 Outpatient Visit j35ejy51- s2d0-9j32 -vi59-37z p4e5u083a [id number] p20cqj63-m 7e0-1o82-r m26-61xz0t 4r106m 2022-03-20 00:00:00 2022-03-20 00:00:00 Outpatient Visit [id number]- 499b-4139 -d633-t53 h1t343u98 [id number] 86y0364u-0 99b-4139-b 979-d90d6a 082f34 2022-03-11 00:00:00 2022-03-11 00:00:00 Outpatient Visit s5ilv345- 2nx1-0ux5 -9183-471 nlb07y85u [id number] x4vuv136-9 be8-4fb1-9 183-471bfe 09f04a 2022-03-05 00:00:00 2022-03-05 00:00:00 Outpatient Visit [id number]- 7883-4b9d -ex2i-68j [id number] z8p75622-8 883-4b9d-a z7n-52y482 953bc3 2022-02-28 00:00:00 2022-02-28 00:00:00 Outpatient Visit 3ni53x11- xe77-70a9 -c5ol-7ep [id number] 5ae41p57-g e39-13c7-y 3bc-2ge947 [id number] 1208-07-11 00:00:00 2022-02-25 00:00:00 Outpatient Visit ax4113w9- 03cc-4c8d -8777-5b3 53920n6vq [id number] ou2584v6-2 3cc-4c8d-8 777-8v2200 20b2eb 2019-11-17 00:00:00 2019-11-17 00:00:00 Telephone Guerrero Whitaker [facility] 1.2.840.114 350.1.13.10 4.2.7.2.686 [id number] [facility] 2019-10-25 00:00:00 2019-10-25 00:00:00 Orders Only Doctor Unassigned, [place] [facility] 1.2.840.114 350.1.13.10 4.2.7.2.686 [id number] [facility] 2019-10-21 00:00:00 2019-10-21 00:00:00 Office Visit Arlene Valentino [facility] TIMING ADJUSTER Encounter/ [id number] [facility] 2019-10-21 00:00:00 2019-10-21 00:00:00 Office Visit Arlene Valentino [facility] TIMING ADJUSTER Encounter/ [id number] [facility] 2019-10-19 00:00:00 2019-10-19 00:00:00 Office Visit Arlene Valentino [facility] TIMING ADJUSTER Encounter/ [id number] [facility] 2019-10-19 00:00:00 2019-10-19 00:00:00 Office Visit [facility] TIMING ADJUSTER Encounter/ [id number] [facility] 2019-10-19 00:00:00 2019-10-19 00:00:00 Office Visit Arlene Valentino [facility] TIMING ADJUSTER Encounter/ [id number] [facility] 2019-10-18 00:00:00 2019-10-18 00:00:00 Office Visit Arlene Valentino [facility] TIMING ADJUSTER Encounter/ [id number] [facility] 2019-10-15 00:00:00 2019-10-15 00:00:00 Office Visit Arlene Valentino [facility] TIMING ADJUSTER Encounter/ [id number] [facility] 2019-10-14 00:00:00 2019-10-14 00:00:00 [facility]/ [id number] [facility] 2019-10-14 00:00:00 2019-10-14 00:00:00 Office Visit [facility]/ [id number] [facility] 2019-10-14 00:00:00 2019-10-14 00:00:00 Office Visit Heaven Morrow [facility] TIMING ADJUSTER Encounter/ [id number] [facility] 2019-10-14 00:00:00 2019-10-14 00:00:00 Office Visit Heaven Morrow [facility] TIMING ADJUSTER Encounter/ [id number] [facility] 2019-10-14 00:00:2019-10-14 00:00:00 Office Visit Heaven Morrow Maria Castillo, Stephanie A [facility] TIMING ADJUSTER Encounter/ [id number] [facility] 2019-10-14 00:00:00 2019-10-14 00:00:00 Office Visit Yina Green [facility] TIMING ADJUSTER Encounter/ [id number] [facility] 2019-10-11 00:00:00 2019-10-11 00:00:00 Office Visit Adali Mcpherson [facility] Encounter/ [id number] [facility] 2019-10-07 00:00:00 2019-10-07 00:00:00 Office Visit Responsible Provider, Not Yet Assigned Adali Mcpherson [facility] Encounter/ [id number] [facility] 2019-10-07 00:00:00 2019-10-07 00:00:00 Office Visit Responsible Provider, Not Yet Assigned Adali Mcpherson [facility]/ [id number] [facility] 2019-10-07 00:00:00 2019-10-07 00:00:00 Office Visit Responsible Provider, Not Yet Assigned Adali Mcpherson [facility] Encounter/ [id number] [facility] 2019-10-07 00:00:00 2019-10-07 00:00:00 Office Visit Yenni Gross [facility] Super[facility] [employer] [facility] Encounter/ [id number] [facility] 2019-10-07 00:00:00 2019-10-07 00:00:00 Office Visit Mailer, Health Advocate Student Shayy Rios [facility] Encounter/ [id number] [facility] 2019-10-07 00:00:00 2019-10-07 00:00:00 Office Visit Colette Chowdary, Tram Dobson, Yenni Tejeda [facility] TIMING ADJUSTER Encounter/ [id number] [facility] 2019-10-06 00:00:00 2019-10-06 00:00:00 [facility]/ [id number] [facility] 2019-09-30 15:00:00 2019-09-30 15:00:00 Outpatient R EMMY BONILLA [facility] [id number] [facility] 2019-09-16 00:00:00 2019-09-16 00:00:00 Letter (Out) Emmy Bonilla [facility] 1.2.840.114 350.1.13.10 4.2.7.2.686 [id number] [facility] 2019-08-31 16:27:53 2019-08-31 16:42:53 Routine Visit Emmy Bonilla [facility] 1.2.840.114 350.1.13.10 4.2.7.2.686 [id number] [facility] 2019-08-27 15:00:00 2019-08-27 18:05:33 Outpatient GUILLERMINA ORNELAS [facility] [id number] [facility] 2019-05-03 00:00:00 2019-05-03 00:00:00 Case Management WhitakerGuerrero [facility] 1.2.840.114 350.1.13.10 4.2.7.2.686 [id number] [facility] 2019-04-21 00:00:00 2019-04-21 00:00:00 Case Management WhitakerGuerrero [facility] 1.2.840.114 350.1.13.10 4.2.7.2.686 [id number] [facility] 2019-04-21 00:00:00 2019-04-21 00:00:00 Telephone Mary Jane Whitakeren [facility] 1.2.840.114 350.1.13.10 4.2.7.2.686 [id number] [facility] 2019-04-20 00:00:00 2019-04-20 00:00:00 Telephone Guerrero Whitaker [facility] 1.2.840.114 350.1.13.10 4.2.7.2.686 [id number] [facility] 2019-04-14 15:00:27 2019-04-14 15:15:27 Physical Instructor Visit 1, Adc Lab Guerrero Whitaker [facility] 1.2.840.114 350.1.13.10 4.2.7.2.686 [id number] [facility] 2019-04-14 15:00:00 2019-04-14 15:00:00 Outpatient R GUERRERO WHITAKER [facility] [id number] [facility] 2019-04-14 13:41:25 2019-04-14 14:43:27 Routine Visit Guerrero Whitaker [facility] 1.2.840.114 350.1.13.10 4.2.7.2.686 [id number] [facility] 2019-04-14 00:00:00 2019-04-14 00:00:00 Letter (Out) Guerrero Whitaker [facility] 1.2.840.114 350.1.13.10 4.2.7.2.686 [id number] [facility] 2019-04-14 00:00:00 2019-04-14 00:00:00 Orders Only Doctor Unassigned, [place] [facility] 1.2.840.114 350.1.13.10 4.2.7.2.686 [id number] [facility] 2019-04-07 00:00:00 2019-04-07 00:00:00 Telephone Guerrero Whitaker [facility] 1.2.840.114 350.1.13.10 4.2.7.2.686 [id number] [facility] 2019-04-01 00:00:00 2019-04-01 00:00:00 Telephone Guerrero Whitaker [facility] 1.2.840.114 350.1.13.10 4.2.7.2.686 [id number] [facility] 2019-03-17 10:12:58 2019-03-24 08:59:00 Physical Instructor Visit 1, Adc Lab Guerrero Whitaker [facility] 1.2.840.114 350.1.13.10 4.2.7.2.686 [id number] [facility] 2019-03-17 10:15:00 2019-03-17 10:15:00 Outpatient R GUERRERO WHITAKER [facility] [id number] [facility] 2019-03-17 08:58:48 2019-03-17 10:02:46 Initial Visit Guerrero Whitaker [facility] 1.2.840.114 350.1.13.10 4.2.7.2.686 [id number] [facility] Results Test Description Test Time Test Comments Results Result Co mments Source [facility] Cord [id number] 04:08:38* Test Item Value Reference Range Interpretation Comme nts VENOUS BASE EXCESS, CORD (te st code = 9463677090) -1.2 mEq/L VENOUS PH, CORD (test code = 5269042549) 7.41 7.25-7.45 VENOUS PC02, CORD (test code = 1704673279) 37 27-49 VENOUS PO2, CORD (test code = 4016973224) 29 17-41 VENOUS BICARBONATE, CORD (te st code = 6732455500) 23 12-29 [facility] [id number] 04:08:13* Test Item Value Reference Range Interpretation Comme nts BASE EXCESS, CORD (test code = 0146483904) -4.0 mEq/L AC PH, CORD (BEAKER) (test c ode = 6920722487) 7.33 7.18-7.38 PC02, CORD (test code = 5146944275) 42 32-66 PO2, CORD (test code = 7570387649) 34 10-30 H BICARBONATE, CORD (test code = 8679379832) 22 17-27 Lab Interpretation (test cod e = 08324-8) Abnormal [facility] Neur[facility] [id number] 16:04:00 Logan Garcia MD ? ? 07/22/2024 10:54 AM Central Neuraxial Block Date/Time: 07/22/2024 10:04 AM Performed by: Logan Garcia MDAuthorized by: Miguel Carreno MD ?Patient Location: OtherReason for Block: Labor analgesia, OB request, Patient request, Post-op pain management and Surgical anesthesiaStaff: ?Anesthesiologist: Miguel Carreno MD ?Resident/[employer] POLICY SPECIALIST: Logan Garcia MD ?Performed by: resident/CRNAPreanesthetic Checklist: [...] and MICHELLE saline ?Guidance with: landmark technique}Epidural/Spinal [place] and/or Catheter: ?Epidural/Spinal Kit: BBraun ?Needle Type: [...] Epidural expectations; PCEA explained and fall precautions given.[facility] URINALYSIS W SPECIFIC [id number] 21:18:00* Test Item Value Reference Range Interpretation [...] POCT U APPEAR (test code = 3267) [facility] URINALYSIS W SPECIFIC [id number] 17:22:00* Test Item Value Reference Range Interpretation [...] APPEAR (test code = 3267) ..... [facility] CampusPOCT URINALYSIS W SPECIFIC [id number] 18:25:00* Test Item Value Reference Range Interpretation [...] APPEAR (test code = 3267) . [facility] CampusUS PELVIS > 14 [id number] 13:28:48ORDERING PHYSICIAN: MARIELA CHEN CLINICAL HISTORY: LEAKING [...] 618 cm, 34 weeks 6 days.EFW: 2727 [facility] POCT URINALYSIS W SPECIFIC [id number] 17:25:00* Test Item Value Reference Range Interpretation [...] APPEAR (test code = 3267) . [facility] CampusRUBELLA SCREEN (WES) [id number] 17:50:58 * Test Item Value Reference Range Interpretation Comme [facility] Rubella screen IgG (test code = 3853387305) Negative Negative ARNULFO (test code = ARNULFO) Positive - Indicat es the patient was exposed to Rubella through infection or vaccination.Negative - Indicates the patient could be susceptible to Rubella infection.Equivocal - A second specimen should be sent. [facility] CampusVZV ANTIBODY [id number] 17:50:58* Test Item Value Reference Range Interpretation Comme [facility] VZV IgG antibody (test code = 80909-7) Equivocal Negative ARNULFO (test code = ARNULFO) Positive - Indicat es the patient was exposed to VZV through infection or vaccination.Negative - Indicates the patient could be susceptible to VZV infection.Equivocal - A second specimen should be sent for testing. [facility] CampusGAL ONLY - SYPHILIS [id number] 16:03:23* Test Item Value Reference Range Interpretation Comme nts Syphilis IgG/IgM (test code = 72729-8) Non-reactive Non-reactive ARNULFO (test code = ARNULFO) Non-reactive - No serologic evidence of T. pallidum infection. Cannot exclude incubating or early syphilis. Submit a second specimen in 2-4 weeks if syphilis is clinically suspected. Equivocal - Further testing to follow. Reactive - Further testing to follow. Lab Interpretation (test code = 02272-5) Normal [facility] CampusHI 1/2 AG-AB WITH [id number] 10:09:25* Test Item Value Reference Range Interpretation Comme nts HIV Semi-quantitative (test code = 57590-3) 0.10 Negative ARNULFO (test code = ARNULFO) Non-reactive for HIV-1 antigen and HIV-1/HIV-2 antibodies. ?No laboratory evidence of HIV infection. ?Repeat in 2-4 weeks if acute HIV infection is suspected. [facility] CampusHCV [id number] 08:51:31* Test Item Value Reference Range Interpretation Comme [facility] HCV Ab (test code = 50504-7) Negative HCV Semi-Quantitative (test code = 45920-2) 0.01 [facility] CampusHEPATITIS B SURFACE [id number] 08:33:53 * Test Item Value Reference Range Interpretation Comme nts HBsAg Semi-Quantitative (ruslan t code = 5195-3) 0.12 Negative [facility] CampusGlucose 1 Hour Post [id number] 05:51:36* Test Item Value Reference Range Interpretation Comme nts GLUC 1 HR (test code = 7836937229) 89 mg/dL 120-170 L Lab Interpretation (test cod e = 88264-3) Abnormal [facility] CampusCB WITH [id number] 05:33:31* Test Item Value Reference Range Interpretation [...] 32.5 g/dL 31.6-35.1 RDW-SD (test code = 28637-3) 36.8 fL 39.0-49.9 L RDW-CV (test code = 788-0) 12.7 % 12.0-15.5 PLT (test code = 777-3) 404 166-358 H MPV (test code = 24980-4) 9.2 fL 9.5-12.9 L NRBC/100 WBC (test code = 8821683331) 0.0 0.0-10.0 NRBC x10^3 (test code = 5855989183) See_Comment [Automated messa ge] The system which generated this result transmitted reference range: 10*3/?L. The reference range was not used to interpret this result as normal/abnormal. GRAN MAT (NEUT) % (test code = 770-8) 75.0 % IMM GRAN % (test code = 7674016193) 0.50 % LYMPH % (test code = 736-9) 16.1 % MONO % (test code = 5905-5) 7.5 % EOS % (test code = 713-8) 0.6 % BASO % (test code = 706-2) 0.3 % GRAN MAT x10^3(ANC) (test code = 9703470636) 8.23 10*3/uL 1.88-7.09 H IMM GRAN x10^3 (test code = 5689251441) 0.05 10*3/uL 0.00-0.06 LYMPH x10^3 (test code = 731-0) 1.76 10*3/uL 1.32-3.29 MONO x10^3 (test code = 742-7) 0.82 10*3/uL 0.33-0.92 EOS x10^3 (test code = 711-2) 0.07 10*3/uL 0.03-0.39 BASO x10^3 (test code = 704-7) 0.03 10*3/uL 0.01-0.07 Lab Interpretation (test code = 50990-2) Abnormal [facility]OD [id number] 05:01:00 * Test Item Value Reference Range Interpretation Comme nts ABO & RH (test code = 20) A POSITIVE IAT (test code = 1185) Negative [facility] [id number] 18:09:00* Test Item Value Reference Range Interpretation Comme nts POCT PREG (test code = 1605) Positive On board controls acceptable with C Line (test code = 3574) Yes POCT PREG LOT # (test code = 3575) POCT PREG TEST DATE ( test code = 3576) [facility] Urinalysis w/o Specific [id number] 18:09:00* Test Item Value Reference Range Interpretation [...] 3257) neg Negative - Negati ve [facility] CampusCHLAMYDIA, NAAT, [id number] 12:29:30* Test Item Value Reference Range Interpretation Comme nts CHLAMYDIA, NAAT, URINE (test code = 02913) POSITIVE NEGATIVE A Testing is perfo rmed with Elpidio MIRA 6800/8800 systems usingreal-time polymerase chain reaction (PCR) method. GONORRHEA, NAAT, [id number] 12:29:30* Test Item Value Reference Range Interpretation Comme nts GONORRHEA, NAAT, URINE (test code = 94596) NEGATIVE NEGATIVE Testing is perfo rmed with Elpidio MIRA 6800/8800 systems usingreal-time polymerase chain reaction (PCR) method. A negative result does not exclude low level infection, specimensampling error, or collection error. RPR REFLEX TO T. PALLIDUM - [id number] 04:03:32* Test Item Value Reference Range Interpretation Comme nts RPR (test code = 91761) NON-REACTIVE NON-REACTIVE RPR TITER (test code = 3500) NOT INDIC. TITER NOT INDIC. HEPATITIS PANEL, [id number] 04:01:26* Test Item Value Reference Range Interpretation Comme nts HEPATITIS A IgM (test code = 42668) NON-REACTIVE NON-REACTIVE HEPATITIS B CORE IgM (test code = 4644) NON-REACTIVE NON-REACTIVE HEPATITIS B SURF AG (test code = 2739) NON-REACTIVE NON-REACTIVE HEPATITIS C ANTIBODY (test code = 4675) NON-REACTIVE NON-REACTIVE INTERPRETATION HEPATITIS A: (test code = 2552) (NOTE) Hepatitis A sero logy shows no evidence of acute hepatitis A. INTERPRETATION HEPATITIS B: (test code = 52020) (NOTE) Hepatitis B sero logy shows no evidence of acute hepatitis B andno indication of exposure to hepatitis B virus in the previous huyen eight months. INTERPRETATION HEPATITIS C: (test code = 52030) (NOTE) Hepatitis C sero logy shows no evidence of exposure to hepatitisC virus at this time. It can take up to 12 months after exposure tothe hepatitis C virus for antibodies to become detectable in the blood in certain patients. UNLESS OTHERWISE INDICATED, ALL TESTING PERFORMED AT [facility] [address] [place] [address] [employer] ARCHITECT: SHAYY SANTOS M.D. CLIA NUMBER [id number] [facility] [place]. [id number] HIV 1/2 4TH GEN, RFLX [id number] 04:01:26* Test Item Value Reference Range Interpretation Comme nts HIV 1/2 4TH GEN, RFLX CONF ( test code = 3514) NON-REACTIVE NON-REACTIVE CULTURE, ROUTINE SENSITIVITY ON [id number] 14:09:05SPECIMEN NUMBER: [id number] CULTURE, ROUTINE SENSITIVITY ON ALL SPECIMEN NUMBER: [id number] SOURCE: OTHER SOURCE REPORT STATUS: FINAL FINAL REPORT: 07/09/2023 NO SPECIMEN RECEIVED FOR TESTING. CHARGESDELETED.HIV 1/2 4TH GEN, RFLX [id number] 02:08:57* Test Item Value Reference Range Interpretation Comme nts HIV 1/2 4TH GEN, RFLX CONF ( test code = 3514) NON-REACTIVE NON-REACTIVE HEPATITIS PANEL, [id number] 02:08:57* Test Item Value Reference Range Interpretation Comme nts HEPATITIS A IgM (test code = 08625) NON-REACTIVE NON-REACTIVE HEPATITIS B CORE IgM (test code = 4644) NON-REACTIVE NON-REACTIVE HEPATITIS B SURF AG (test code = 2739) NON-REACTIVE NON-REACTIVE HEPATITIS C ANTIBODY (test code = 4675) NON-REACTIVE NON-REACTIVE INTERPRETATION HEPATITIS A: (test code = 2552) (NOTE) Hepatitis A serology shows no evidence of acute hepatitis A. INTERPRETATION HEPATITIS B: (test code = 69318) (NOTE) Hepatitis B serology shows no evidence of acute hepatitis B andno indication of exposure to hepatitis B virus in the previous huyen eight months. INTERPRETATION HEPATITIS C: (test code = 64808) (NOTE) Hepatitis C serology shows no evidence of exposure to hepatitisC virus at this time. It can take up to 12 months after exposure tothe hepatitis C virus for antibodies to become detectable in the blood in certain patients. [id number] 23:37:07* Test Item Value Reference Range Interpretation Comme nts RPR RESULT (test code = 3501) NON-REACTIVE NON-REACTIVE RPR TITER (test code = 3500) NOT INDIC. TITER NOT INDIC. CT/NG, NAAT, [id number] 14:03:18* Test Item Value Reference Range Interpretation Comme nts CHLAMYDIA, NAAT, URINE (test code = 61020) NEGATIVE NEGATIVE Testing is perfo rmed with Elpidio MIRA 6800/8800 systems usingreal-time polymerase chain reaction (PCR) method. A negative result does not exclude low level infection, specimensampling error, or collection error. GONORRHEA, NAAT, URINE (test code = 02658) NEGATIVE NEGATIVE Testing is perfo rmed with [employer] MIRA 6800/8800 systems usingreal-time polymerase chain reaction (PCR) method. A negative result does not exclude low level infection, specimensampling error, or collection error. UNLESS OTHERWISE INDICATED, ALL TESTING PERFORMED AT [facility] [address] [place] [address] [employer] ARCHITECT: SHAYY SANTOS M.D. [place] NUMBER [id number] [facility] [place]. [id number] CULTURE, [id number] 11:36:54SPECIMEN NUMBER: [id number] CULTURE, URINE SPECIMEN NUMBER: [id number] SPECIMEN COMMENT: URINE SOURCE: URINE REPORT STATUS: FINAL FINAL REPORT: 07/07/2023 50-100,000 CFU/ML UROGENITAL LINDSAY PRESENT NO COMMON PATHOGENSTRICHOMONAS, NAAT, [id number] 16:23:16* Test Item Value Reference Range Interpretation Comme nts TRICHOMONAS, NAAT, URINE (test code = 87566) NEGATIVE NEGATIVE Testing is perfo rmed with [employer] MIRA 6800/8800 method usingreal-time polymerase chain reaction (PCR) method. A negative result does not exclude low level infection, specimensampling error, or collection error. CHLAMYDIA, NAAT, [id number] 16:22:13* Test Item Value Reference Range Interpretation Comme nts CHLAMYDIA, NAAT, URINE (test code = 41864) POSITIVE NEGATIVE A Testing is perfo rmed with [employer] MIRA 6800/8800 systems usingreal-time polymerase chain reaction (PCR) method. GONORRHEA, NAAT, [id number] 16:22:13* Test Item Value Reference Range Interpretation Comme nts GONORRHEA, NAAT, URINE (test code = 57392) NEGATIVE NEGATIVE Testing is perfo rmed with [employer] MIRA 6800/8800 systems usingreal-time polymerase chain reaction (PCR) method. A negative result does not exclude low level infection, specimensampling error, or collection error. RPR REFLEX TO T. PALLIDUM - [id number] 05:31:29* Test Item Value Reference Range Interpretation Comme nts RPR (test code = 31096) NON-REACTIVE NON-REACTIVE RPR TITER (test code = 3500) NOT INDIC. TITER NOT INDIC. HIV 1/2 4TH GEN, RFLX [id number] 05:05:42* Test Item Value Reference Range Interpretation Comme nts HIV 1/2 4TH GEN, RFLX CONF ( test code = 3514) NON-REACTIVE NON-REACTIVE HEPATITIS PANEL, [id number] 05:05:42* Test Item Value Reference Range Interpretation Comme nts HEPATITIS A IgM (test code = 12996) NON-REACTIVE NON-REACTIVE HEPATITIS B CORE IgM (test code = 4644) NON-REACTIVE NON-REACTIVE HEPATITIS B SURF AG (test code = 2739) NON-REACTIVE NON-REACTIVE HEPATITIS C ANTIBODY (test code = 4675) NON-REACTIVE NON-REACTIVE INTERPRETATION HEPATITIS A: (test code = 2552) (NOTE) Hepatitis A sero logy shows no evidence of acute hepatitis A. INTERPRETATION HEPATITIS B: (test code = 17472) (NOTE) Hepatitis B sero logy shows no evidence of acute hepatitis B andno indication of exposure to hepatitis B virus in the previous huyen eight months. INTERPRETATION HEPATITIS C: (test code = 37963) (NOTE) Hepatitis C sero logy shows no evidence of exposure to hepatitisC virus at this time. It can take up to 12 months after exposure tothe hepatitis C virus for antibodies to become detectable in the blood in certain patients. [facility] has important pathology staff changes effective 10/16/2022. New pathology staff will provide uninterrupted, excellent patient care and clinical consultation. See URL: [email or web address]. UNLESS OTHERWISE INDICATED, ALL TESTING PERFORMED AT [facility] [address] [place] [address] [employer] ARCHITECT: CAMPOS ALVARENGA M.D. CLIA NUMBER [id number] [facility] [place]. [id number] CHLAMYDIA, NAAT, [id number] 13:11:20* Test Item Value Reference Range Interpretation Comme nts CHLAMYDIA, NAAT (test code = 22775) NEGATIVE NEGATIVE IMPORTANT NO KWAKU: SEE ANNOUNCEMENT AT [email or web address] Note: Assay methodology is nucleic acid amplification by cover assembler mediated amplification (TMA) utilizing the Aptima Combo 2 Assay. GONORRHEA, NAAT, [id number] 13:11:20* Test Item Value Reference Range Interpretation Comme nts GONORRHEA, NAAT (test code = 65191) NEGATIVE NEGATIVE IMPORTANT NO KWAKU: SEE ANNOUNCEMENT AT [email or web address] Note: Assay methodology is nucleic acid amplification by cover assembler mediated amplification (TMA) utilizing the Aptima Combo 2 Assay. UNLESS OTHERWISE INDICATED, [facility] [employer], [facility]. [address] [place] [address] [employer] ARCHITECT: CAMPOS ALVARENGA M.D. CLIA NUMBER [id number] [facility] [place]. [id number] CHLAMYDIA, AMPLIFIED, [id number] 00:00:00* Test Item Value Reference Range Interpretation Comme nts CHLAMYDIA, NAAT (test code = 14053) NEGATIVE GC, AMPLIFIED, [id number] 00:00:00* Test Item Value Reference Range Interpretation Comme nts GONORRHEA, NAAT (test code = 50030) NEGATIVE CHLAMYDIA, AMPLIFIED, [id number] 00:00:00* Test Item Value Reference Range Interpretation Comme nts CHLAMYDIA, NAAT (test code = 42565) NEGATIVE GC, AMPLIFIED, [id number] 00:00:00* Test Item Value Reference Range Interpretation Comme nts GONORRHEA, NAAT (test code = 99985) NEGATIVE CHLAMYDIA, AMPLIFIED, [id number] 00:00:00* Test Item Value Reference Range Interpretation Comme nts CHLAMYDIA, NAAT (test code = 44491) NEGATIVE GC, AMPLIFIED, [id number] 00:00:00* Test Item Value Reference Range Interpretation Comme nts GONORRHEA, NAAT (test code = 81285) NEGATIVE CHLAMYDIA, AMPLIFIED, [id number] 00:00:00* Test Item Value Reference Range Interpretation Comme nts CHLAMYDIA, NAAT (test code = 21221) NEGATIVE GC, AMPLIFIED, [id number] 00:00:00* Test Item Value Reference Range Interpretation Comme nts GONORRHEA, NAAT (test code = 75602) NEGATIVE CHLAMYDIA, AMPLIFIED, [id number] 00:00:00* Test Item Value Reference Range Interpretation Comme nts CHLAMYDIA, NAAT (test code = 28578) NEGATIVE GC, AMPLIFIED, [id number] 00:00:00* Test Item Value Reference Range Interpretation Comme nts GONORRHEA, NAAT (test code = 01945) NEGATIVE CHLAMYDIA, AMPLIFIED, [id number] 00:00:00* Test Item Value Reference Range Interpretation Comme nts CHLAMYDIA, NAAT (test code = 20301) NEGATIVE GC, AMPLIFIED, [id number] 00:00:00* Test Item Value Reference Range Interpretation Comme nts GONORRHEA, NAAT (test code = 51263) NEGATIVE CHLAMYDIA, AMPLIFIED, [id number] 00:00:00* Test Item Value Reference Range Interpretation Comme nts CHLAMYDIA, NAAT (test code = 83209) NEGATIVE GC, AMPLIFIED, [id number] 00:00:00* Test Item Value Reference Range Interpretation Comme nts GONORRHEA, NAAT (test code = 96876) NEGATIVE CHLAMYDIA, AMPLIFIED, [id number] 00:00:00* Test Item Value Reference Range Interpretation Comme nts CHLAMYDIA, NAAT (test code = 22548) NEGATIVE GC, AMPLIFIED, [id number] 00:00:00* Test Item Value Reference Range Interpretation Comme nts GONORRHEA, NAAT (test code = 12177) NEGATIVE CT/NG, NAAT, [id number] 19:10:11* Test Item Value Reference Range Interpretation Comme nts GONORRHEA, NAAT (test code = 21824) NEGATIVE NEGATIVE IMPORTANT NO KWAKU: SEE ANNOUNCEMENT AT [email or web address] Note: Assay methodology is nucleic acid amplification by cover assembler mediated amplification (TMA) utilizing the Aptima Combo 2 Assay. CHLAMYDIA, NAAT (test code = 18905) POSITIVE NEGATIVE A IMPORTANT NO KWAKU: SEE ANNOUNCEMENT AT [email or web address] Note: Assay methodology is nucleic acid amplification by cover assembler mediated amplification (TMA) utilizing the Aptima Combo 2 Assay. UNLESS OTHERWISE INDICATED, [facility] [address] [place] [address] [employer] ARCHITECT: CAMPOS ALVARENGA M.D. CLIA NUMBER [id number] [facility] [place]. [id number] GC AND CHLAMYDIA, AMPLIFIED, [id number] 00:00:00* Test Item Value Reference Range Interpretation Comme nts GONORRHEA, NAAT (test code = 99624) NEGATIVE CHLAMYDIA, NAAT (test code = 35336) POSITIVE GC AND CHLAMYDIA, AMPLIFIED, [id number] 00:00:00* Test Item Value Reference Range Interpretation Comme nts GONORRHEA, NAAT (test code = 33556) NEGATIVE CHLAMYDIA, NAAT (test code = 63008) POSITIVE GC AND CHLAMYDIA, AMPLIFIED, [id number] 00:00:00* Test Item Value Reference Range Interpretation Comme nts GONORRHEA, NAAT (test code = 46618) NEGATIVE CHLAMYDIA, NAAT (test code = 02703) POSITIVE GC AND CHLAMYDIA, AMPLIFIED, [id number] 00:00:00* Test Item Value Reference Range Interpretation Comme nts GONORRHEA, NAAT (test code = 17863) NEGATIVE CHLAMYDIA, NAAT (test code = 23988) POSITIVE GC AND CHLAMYDIA, AMPLIFIED, [id number] 00:00:00* Test Item Value Reference Range Interpretation Comme nts GONORRHEA, NAAT (test code = 96598) NEGATIVE CHLAMYDIA, NAAT (test code = 87536) POSITIVE GC AND CHLAMYDIA, AMPLIFIED, [id number] 00:00:00* Test Item Value Reference Range Interpretation Comme nts GONORRHEA, NAAT (test code = 50608) NEGATIVE CHLAMYDIA, NAAT (test code = 98264) POSITIVE GC AND CHLAMYDIA, AMPLIFIED, [id number] 00:00:00* Test Item Value Reference Range Interpretation Comme nts GONORRHEA, NAAT (test code = 05618) NEGATIVE CHLAMYDIA, NAAT (test code = 56150) POSITIVE GC AND CHLAMYDIA, AMPLIFIED, [id number] 00:00:00* Test Item Value Reference Range Interpretation Comme nts GONORRHEA, NAAT (test code = 94179) NEGATIVE CHLAMYDIA, NAAT (test code = 46829) POSITIVE HIV AB/AG COMBO RFLX [id number] 00:00:00* Test Item Value Reference Range Interpretation Comme nts HIV 1/2 4TH GEN, RFLX CONF ( test code = 3514) NON-REACTIVE ACUTE HEPATITIS [id number] 00:00:00* Test Item Value Reference Range Interpretation Comme nts HEPATITIS A IgM (test code = 45598) NON-REACTIVE HEPATITIS B CORE IgM (test c ode = 4644) NON-REACTIVE HEPATITIS B SURF AG (test co de = 2739) NON-REACTIVE HEPATITIS C ANTIBODY (test c ode = 4695) NON-REACTIVE INTERPRETATION HEPATITIS A: (test code = 2552) (NOTE) INTERPRETATION HEPATITIS B: (test code = 98598) (NOTE) INTERPRETATION HEPATITIS C: (test code = 32323) (NOTE) GC, AMPLIFIED, [id number] 00:00:00* Test Item Value Reference Range Interpretation Comme nts GONORRHEA, NAAT (test code = 92937) NEGATIVE CHLAMYDIA, AMPLIFIED, [id number] 00:00:00* Test Item Value Reference Range Interpretation Comme nts CHLAMYDIA, NAAT (test code = 25910) POSITIVE HIV AB/AG COMBO RFLX [id number] 00:00:00* Test Item Value Reference Range Interpretation Comme nts HIV 1/2 4TH GEN, RFLX CONF ( test code = 3514) NON-REACTIVE ACUTE HEPATITIS [id number] 00:00:00* Test Item Value Reference Range Interpretation Comme nts HEPATITIS A IgM (test code = 33831) NON-REACTIVE HEPATITIS B CORE IgM (test c ode = 4644) NON-REACTIVE HEPATITIS B SURF AG (test co de = 2739) NON-REACTIVE HEPATITIS C ANTIBODY (test c ode = 4675) NON-REACTIVE INTERPRETATION HEPATITIS A: (test code = 2552) (NOTE) INTERPRETATION HEPATITIS B: (test code = 94297) (NOTE) INTERPRETATION HEPATITIS C: (test code = 56511) (NOTE) GC, AMPLIFIED, [id number] 00:00:00* Test Item Value Reference Range Interpretation Comme nts GONORRHEA, NAAT (test code = 06324) NEGATIVE CHLAMYDIA, AMPLIFIED, [id number] 00:00:00* Test Item Value Reference Range Interpretation Comme nts CHLAMYDIA, NAAT (test code = 91401) POSITIVE HIV AB/AG COMBO RFLX [id number] 00:00:00* Test Item Value Reference Range Interpretation Comme nts HIV 1/2 4TH GEN, RFLX CONF ( test code = 3514) NON-REACTIVE ACUTE HEPATITIS [id number] 00:00:00* Test Item Value Reference Range Interpretation Comme nts HEPATITIS A IgM (test code = 42781) NON-REACTIVE HEPATITIS B CORE IgM (test c ode = 4644) NON-REACTIVE HEPATITIS B SURF AG (test co de = 2739) NON-REACTIVE HEPATITIS C ANTIBODY (test c ode = 4675) NON-REACTIVE INTERPRETATION HEPATITIS A: (test code = 2552) (NOTE) INTERPRETATION HEPATITIS B: (test code = 57551) (NOTE) INTERPRETATION HEPATITIS C: (test code = 89280) (NOTE) GC, AMPLIFIED, [id number] 00:00:00* Test Item Value Reference Range Interpretation Comme nts GONORRHEA, NAAT (test code = 44640) NEGATIVE CHLAMYDIA, AMPLIFIED, [id number] 00:00:00* Test Item Value Reference Range Interpretation Comme nts CHLAMYDIA, NAAT (test code = 63149) POSITIVE HIV AB/AG COMBO RFLX [id number] 00:00:00* Test Item Value Reference Range Interpretation Comme nts HIV 1/2 4TH GEN, RFLX CONF ( test code = 3514) NON-REACTIVE ACUTE HEPATITIS [id number] 00:00:00* Test Item Value Reference Range Interpretation Comme nts HEPATITIS A IgM (test code = 51811) NON-REACTIVE HEPATITIS B CORE IgM (test c ode = 4644) NON-REACTIVE HEPATITIS B SURF AG (test co de = 2739) NON-REACTIVE HEPATITIS C ANTIBODY (test c ode = 4675) NON-REACTIVE INTERPRETATION HEPATITIS A: (test code = 2552) (NOTE) INTERPRETATION HEPATITIS B: (test code = 50337) (NOTE) INTERPRETATION HEPATITIS C: (test code = 26914) (NOTE) GC, AMPLIFIED, [id number] 00:00:00* Test Item Value Reference Range Interpretation Comme nts GONORRHEA, NAAT (test code = 30323) NEGATIVE CHLAMYDIA, AMPLIFIED, [id number] 00:00:00* Test Item Value Reference Range Interpretation Comme nts CHLAMYDIA, NAAT (test code = 30599) POSITIVE HIV AB/AG COMBO RFLX [id number] 00:00:00* Test Item Value Reference Range Interpretation Comme nts HIV 1/2 4TH GEN, RFLX CONF ( test code = 3514) NON-REACTIVE ACUTE HEPATITIS [id number] 00:00:00* Test Item Value Reference Range Interpretation Comme nts HEPATITIS A IgM (test code = 39456) NON-REACTIVE HEPATITIS B CORE IgM (test c ode = 4644) NON-REACTIVE HEPATITIS B SURF AG (test co de = 2739) NON-REACTIVE HEPATITIS C ANTIBODY (test c ode = 4675) NON-REACTIVE INTERPRETATION HEPATITIS A: (test code = 2552) (NOTE) INTERPRETATION HEPATITIS B: (test code = 44245) (NOTE) INTERPRETATION HEPATITIS C: (test code = 64106) (NOTE) GC, AMPLIFIED, [id number] 00:00:00* Test Item Value Reference Range Interpretation Comme nts GONORRHEA, NAAT (test code = 15200) NEGATIVE CHLAMYDIA, AMPLIFIED, [id number] 00:00:00* Test Item Value Reference Range Interpretation Comme nts CHLAMYDIA, NAAT (test code = 27548) POSITIVE HIV AB/AG COMBO RFLX [id number] 00:00:00* Test Item Value Reference Range Interpretation Comme nts HIV 1/2 4TH GEN, RFLX CONF ( test code = 3514) NON-REACTIVE ACUTE HEPATITIS [id number] 00:00:00* Test Item Value Reference Range Interpretation Comme nts HEPATITIS A IgM (test code = 40787) NON-REACTIVE HEPATITIS B CORE IgM (test c ode = 4644) NON-REACTIVE HEPATITIS B SURF AG (test co de = 2739) NON-REACTIVE HEPATITIS C ANTIBODY (test c ode = 4675) NON-REACTIVE INTERPRETATION HEPATITIS A: (test code = 2552) (NOTE) INTERPRETATION HEPATITIS B: (test code = 43227) (NOTE) INTERPRETATION HEPATITIS C: (test code = 08312) (NOTE) GC, AMPLIFIED, [id number] 00:00:00* Test Item Value Reference Range Interpretation Comme nts GONORRHEA, NAAT (test code = 28317) NEGATIVE CHLAMYDIA, AMPLIFIED, [id number] 00:00:00* Test Item Value Reference Range Interpretation Comme nts CHLAMYDIA, NAAT (test code = 77235) POSITIVE HIV AB/AG COMBO RFLX [id number] 00:00:00* Test Item Value Reference Range Interpretation Comme nts HIV 1/2 4TH GEN, RFLX CONF ( test code = 3514) NON-REACTIVE ACUTE HEPATITIS [id number] 00:00:00* Test Item Value Reference Range Interpretation Comme nts HEPATITIS A IgM (test code = 14021) NON-REACTIVE HEPATITIS B CORE IgM (test c ode = 4644) NON-REACTIVE HEPATITIS B SURF AG (test co de = 2739) NON-REACTIVE HEPATITIS C ANTIBODY (test c ode = 4675) NON-REACTIVE INTERPRETATION HEPATITIS A: (test code = 2552) (NOTE) INTERPRETATION HEPATITIS B: (test code = 52062) (NOTE) INTERPRETATION HEPATITIS C: (test code = 35358) (NOTE) HIV AB/AG COMBO RFLX [id number] 00:00:00* Test Item Value Reference Range Interpretation Comme nts HIV 1/2 4TH GEN, RFLX CONF ( test code = 3514) NON-REACTIVE GC, AMPLIFIED, [id number] 00:00:00* Test Item Value Reference Range Interpretation Comme nts GONORRHEA, NAAT (test code = 57057) NEGATIVE ACUTE HEPATITIS [id number] 00:00:00* Test Item Value Reference Range Interpretation Comme nts HEPATITIS A IgM (test code = 27583) NON-REACTIVE HEPATITIS B CORE IgM (test c ode = 4644) NON-REACTIVE HEPATITIS B SURF AG (test co de = 2739) NON-REACTIVE HEPATITIS C ANTIBODY (test c ode = 4675) NON-REACTIVE INTERPRETATION HEPATITIS A: (test code = 2552) (NOTE) INTERPRETATION HEPATITIS B: (test code = 46155) (NOTE) INTERPRETATION HEPATITIS C: (test code = 66274) (NOTE) GC, AMPLIFIED, [id number] 00:00:00* Test Item Value Reference Range Interpretation Comme nts GONORRHEA, NAAT (test code = 54283) NEGATIVE CHLAMYDIA, AMPLIFIED, [id number] 00:00:00* Test Item Value Reference Range Interpretation Comme nts CHLAMYDIA, NAAT (test code = 52068) POSITIVE CHLAMYDIA, AMPLIFIED, [id number] 00:00:00* Test Item Value Reference Range Interpretation Comme nts CHLAMYDIA, NAAT (test code = 99425) POSITIVE hemoglobin, [id number] 15:42:00* Test Item Value Reference Range Interpretation Comme nts hemoglobin, blood (test code = 65) 10.4 g/dL 11.1-15.9 L [facility] [id number] 15:42:00* Test Item Value Reference Range Interpretation Comme nts erythrocyte (RBC) count (ruslan t code = 67) 4.30 X10E6/UL 3.77-5.28 [facility]uk[facility] count, [id number] 15:42:00* Test Item Value Reference Range Interpretation Comme nts leukocyte count, blood (test code = 68) 9.7 X10E3/UL 3.4-10.8 [facility] surface [id number] 15:42:00* Test Item Value Reference Range Interpretation Comme nts hepatitis B surface antigen (test code = 79) Negative Negative [facility] HospitalRh [id number] 15:42:00* Test Item Value Reference Range Interpretation Comme nts Rh antibody (test code = 256) Negative Negative [facility]blood glucose, 1 hour after 50 gm oral [id number] 15:42:00* Test Item Value Reference Range Interpretation Comme nts blood glucose, 1 hour after 50 gm oral glucose (test code = 1039) 111 mg/dL 65-139 [facility]HIV[facility]CMIA (Chemiluminescent Microparticle Immuno Assay) 2019-10-14 15:42:00* Test Item Value Reference Range Interpretation Comme nts HIV-CMIA (Chemiluminescent Microparticle Immuno Assay) (test code = 586783) Non Reactive Non Reactive [facility] Hospitalrapid plasma reagin antibody, [id number] 15:42:00* Test Item Value Reference Range Interpretation Comme nts rapid plasma reagin antibody , serum (test code = 308) Non Reactive Non Reactive [facility] Hospitalrubella antibody, serum, [id number] 15:42:00* Test Item Value Reference Range Interpretation Comme nts rubella antibody, serum, IgG (test code = 81) 1.33 Immune >0.99 [facility]Rh [id number] 15:42:00* Test Item Value Reference Range Interpretation Comme nts Rh antigen (test code = 255) Positive [facility] HospitalABO blood [id number] 15:42:00* Test Item Value Reference Range Interpretation Comme nts ABO blood group (test code = 116) A [facility] HospitalNeisseria gonorrhoeae DNA [id number] 15:42:00* Test Item Value Reference Range Interpretation Comme nts Neisseria gonorrhoeae DNA pr obe (test code = 77861-9) Negative Negative [facility]chlamydia DNA [id number] 15:42:00* Test Item Value Reference Range Interpretation Comme nts chlamydia DNA probe (test co de = 09280-5) Negative Negative [facility] Hospitalimmature granulocytes, percentage of total cells, blood 2019-10-14 15:42:00* Test Item Value Reference Range Interpretation Comme nts immature granulocytes, perce ntage of total cells, blood (test code = 562235) 0 % [facility] Hospitalbasophil count, [id number] 15:42:00* Test Item Value Reference Range Interpretation Comme nts basophil count, absolute (te st code = 83395) 0.0 x10E3/uL 0.0-0.3 [facility] HealthEosinophil Absolute [id number] 15:42:00* Test Item Value Reference Range Interpretation Comme nts Eosinophil Absolute Count (t est code = 648902) 0.0 X10E3/UL 0.0-0.4 [facility] Healthmonocyte count, blood, [id number] 15:42:00* Test Item Value Reference Range Interpretation Comme nts monocyte count, blood, autom ated (test code = 3076) 0.8 X10E3/UL 0.1-0.9 [facility], blood, zoxhvaxla6544-46-39 15:42:00* Test Item Value Reference Range Interpretation Comme nts lymphocyte count, blood, automated (test code = 3074) 1.2 X10E3/UL 0.7-3.1 [facility] Eujgxpqyplk5606-11-33 15:42:00* Test Item Value Reference Range Interpretation Comme nts Absolute Neutrophils (test c ode = 92407) 7.7 X10E3/UL 1.4-7.0 H [facility] Healthbasophils as percent of blood shsyhfuamv6318-37-91 15:42:00* Test Item Value Reference Range Interpretation Comme nts basophils as percent of bloo d leukocytes (test code = 2426) 0 % [facility] Healtheosinophils as percent of blood psjrgcrbgf5476-56-07 15:42:00* Test Item Value Reference Range Interpretation Comme nts eosinophils as percent of bl ood leukocytes (test code = 4170) 0 % [facility] Healthmonocytes as percent of blood ugjolmmwff4564-66-72 15:42:00* Test Item Value Reference Range Interpretation Comme nts monocytes as percent of bloo d leukocytes (test code = 2421) 8 % [facility]allymph[facility] as percent of blood qnxpyrkyxm6859-84-25 15:42:00* Test Item Value Reference Range Interpretation Comme nts lymphocytes as percent of bl ood leukocytes (test code = 317) 12 % [facility]neutrophils as percent of blood axlntgiwip7992-77-63 15:42:00* Test Item Value Reference Range Interpretation Comme nts neutrophils as percent of bl ood leukocytes (test code = 316) 80 % [facility] Hospitalplatelet eszzs4668-09-58 15:42:00* Test Item Value Reference Range Interpretation Comme nts platelet count (test code = 66) 422 X10E3/UL 150-450 [facility]red [facility] cell distribution zsjqw6564-12-75 15:42:00* Test Item Value Reference Range Interpretation Comme [facility] red blood cell distribution width (test code = 1030) 14.1 % 11.7-15.4 [facility] corpuscular hemoglobin concentration, [id number] 15:42:00* Test Item Value Reference Range Interpretation Comme [facility] mean corpuscular hemoglobin concentration, RBC (test code = 1029) 32.3 G/DL 31.5-35.7 [facility] corpuscular hemoglobin, [id number] 15:42:00* Test Item Value Reference Range Interpretation Comme [facility] mean corpuscular hemoglobin, RBC (test code = 1031) 24.2 pg 26.6-33.0 L [facility] corpuscular volume, [id number] 15:42:00* Test Item Value Reference Range Interpretation Comme [facility] mean corpuscular volume, RBC (test code = 315) 75 fL 79-97 L [facility]hematocrit, qdmwr3080-14-32 15:42:00* Test Item Value Reference Range Interpretation Comme [facility] hematocrit, blood (test code = 64) 32.2 % 34.0-46.6 L [facility] Hospitalurine zpyjbvp7320-24-89 15:14:00* Test Item Value Reference Range Interpretation Comme [facility] urine culture (test code = 00373) No growth [facility] HospitalNeisseria gonorrhoeae DNA vuqew5665-99-78 15:14:00* Test Item Value Reference Range Interpretation Comme nts Neisseria gonorrhoeae DNA pr obe (test code = 34267-6) Negative Negative [facility] Hospitalchlamydia DNA [id number] 15:14:00* Test Item Value Reference Range Interpretation Comme nts chlamydia DNA probe (test co de = 76632-1) Negative Negative [facility] HospitalVaginal Group B Strep by Real-Time [id number] 16:28:00 * Test Item Value Reference Range Interpretation Comme nts Vaginal Group B Strep by [place] l-Time PCR (test code = 177799) Negative Negative [facility]ur[facility] zicbhzw3055-22-65 16:27:00* Test Item Value Reference Range Interpretation Comme nts urine culture (test code = 58507) MUG [facility] Hospitalprotein, urine, semiquantitative (dipstick)2019-10-07 16:27:00* Test Item Value Reference Range Interpretation Comme nts protein, urine, semiquantita tive (dipstick) (test code = 1753-3) 33.6 [facility] Hospitalcreatinine, random, epkha7947-32-13 16:27:00* Test Item Value Reference Range Interpretation Comme nts creatinine, random, urine (t est code = 5167) 121.8 mg/dL [facility] Hospitalalanine aminotransferase (SGPT), cpmxr0529-94-10 15:59:00 * Test Item Value Reference Range Interpretation Comme nts alanine aminotransferase (SG PT), serum (test code = 40) 13 1/L 0-24 [facility] Hospitalaspartate aminotransferase (SGOT), bygrs4752-78-80 15:59:00* Test Item Value Reference Range Interpretation Comme nts aspartate aminotransferase ( SGOT), serum (test code = 39) 16 1/L 0-40 [facility] HospitalHIV-CMIA (Chemiluminescent Microparticle Immuno Assay) 2019-10-07 15:59:00* Test Item Value Reference Range Interpretation Comme nts HIV-CMIA (Chemiluminescent Microparticle Immuno Assay) (test code = 656201) Non Reactive Non Reactive [facility] Hospitalrapid plasma reagin antibody, kexov9728-81-55 15:59:00* Test Item Value Reference Range Interpretation Comme nts rapid plasma reagin antibody , serum (test code = 308) Non Reactive Non Reactive [facility] Hospitalimmature granulocytes, percentage of total cells, blood 2019-10-07 15:59:00* Test Item Value Reference Range Interpretation Comme nts immature granulocytes, perce ntage of total cells, blood (test code = 674983) 3 % [facility] Healthbasophil count, mfuyubsy3304-55-07 15:59:00* Test Item Value Reference Range Interpretation Comme nts basophil count, absolute (te st code = 02092) 0.0 x10E3/uL 0.0-0.3 [facility] HealthEosinophil Absolute Cvlag8903-08-86 15:59:00* Test Item Value Reference Range Interpretation Comme nts Eosinophil Absolute Count (t est code = 270475) 0.1 X10E3/UL 0.0-0.4 [facility] Healthmonocyte count, blood, reexkvmac4565-29-24 15:59:00* Test Item Value Reference Range Interpretation Comme nts monocyte count, blood, autom ated (test code = 3076) 1.2 X10E3/UL 0.1-0.9 H [facility]allymphocyte count, blood, cftzcpyac9603-14-60 15:59:00* Test Item Value Reference Range Interpretation Comme nts lymphocyte count, blood, automated (test code = 3074) 1.6 X10E3/UL 0.7-3.1 [facility]Absolute Pvhrgcbqaml3762-33-52 15:59:00* Test Item Value Reference Range Interpretation Comme nts Absolute Neutrophils (test c ode = 79802) 9.4 X10E3/UL 1.4-7.0 H [facility] Healthbasophils as percent of blood wjoapohntd4903-96-49 15:59:00* Test Item Value Reference Range Interpretation Comme nts basophils as percent of bloo d leukocytes (test code = 2426) 0 % [facility] Healtheosinophils as percent of blood rrmhsbrhlt4784-72-10 15:59:00* Test Item Value Reference Range Interpretation Comme nts eosinophils as percent of bl ood leukocytes (test code = 4170) 1 % [facility] Healthmonocytes as percent of blood oxrvtfaeiw2849-42-55 15:59:00* Test Item Value Reference Range Interpretation Comme nts monocytes as percent of bloo d leukocytes (test code = 2421) 10 % [facility]allymphocytes as percent of blood hmqhjzovdl5233-37-06 15:59:00* Test Item Value Reference Range Interpretation Comme nts lymphocytes as percent of bl ood leukocytes (test code = 317) 13 % [facility] Hospitalneutrophils as percent of blood cyrpcxsvme4939-02-07 15:59:00* Test Item Value Reference Range Interpretation Comme nts neutrophils as percent of bl ood leukocytes (test code = 316) 73 % [facility] Hospitalplatelet xemzg3630-43-91 15:59:00* Test Item Value Reference Range Interpretation Comme [facility] platelet count (test code = 66) 417 X10E3/UL 150-450 [facility] Hospitalred blood cell distribution qwpth5465-19-13 15:59:00* Test Item Value Reference Range Interpretation Comme [facility] red blood cell distribution width (test code = 1030) 14.2 % 11.7-15.4 [facility] corpuscular hemoglobin concentration, [id number] 15:59:00* Test Item Value Reference Range Interpretation Comme [facility] mean corpuscular hemoglobin concentration, RBC (test code = 1029) 31.0 G/DL 31.5-35.7 L [facility] corpuscular hemoglobin, [id number] 15:59:00* Test Item Value Reference Range Interpretation Comme [facility] mean corpuscular hemoglobin, RBC (test code = 1031) 24.4 pg 26.6-33.0 L [facility] corpuscular volume, [id number] 15:59:00* Test Item Value Reference Range Interpretation Comme [facility] mean corpuscular volume, RBC (test code = 315) 79 fL 79-97 [facility] Hospitalhematocrit, spjyc1483-13-35 15:59:00* Test Item Value Reference Range Interpretation Comme [facility] hematocrit, blood (test code = 64) 34.8 % 34.0-46.6 [facility] Hospitalhemoglobin, emdzd6038-17-54 15:59:00* Test Item Value Reference Range Interpretation Comme [facility] hemoglobin, blood (test code = 65) 10.8 g/dL 11.1-15.9 L [facility] Hospitalerythrocyte (RBC) uzvuo7591-95-38 15:59:00* Test Item Value Reference Range Interpretation Comme nts erythrocyte (RBC) count (ruslan t code = 67) 4.42 X10E6/UL 3.77-5.28 [facility] Hospitalleukocyte count, mjuoq5490-31-26 15:59:00* Test Item Value Reference Range Interpretation Comme nts leukocyte count, blood (test code = 68) 12.6 X10E3/UL 3.4-10.8 H [facility] HospitalHerpes Simplex Virus Lvjxinj4495-83-17 14:07:37* Test Item Value Reference Range Interpretation Comme nts Herpes Simplex Virus Genital (test code = 4258) no [facility] HospitalPOCT URINALYSIS W/O SPECIFIC [id number] 23:11:00* Test Item Value Reference Range Interpretation [...] ve Lab Interpretation (test cod e = 67996-9) Normal [facility]<14 WEEKS US NWREONG9559-29-29 17:45:03Addendum by Guerrero Whitaker MD on 04/16/2019 12:47 PMLimited USG for dating and viability:?Single live IUP measured 10 5/7 weeks.?Will date by this USG unless clinically indicated otherwise Casie Whitaker MD?04/16/2019?12:44 PM Limited USG for dating and viability:?Single live IUP zkszqpez60 5/7 weeks.?Will date by this USG unless clinically indicated otherwise Guerrero Whitaker MD?04/16/2019?12:44 [facility]UnLeg[facility] HospitalCBC WITH DIFFERENTIAL 2019-04-14 21:44:00* Test Item [...] 34.1 g/dL 32-36 RDW-SD (test code = 31638-5) 37.2 fL 38.5-49 L RDW-CV (test code = 788-0) 12.5 % 11.5-14 PLT (test code = 777-3) See_Comment H [Automated messa ge] The system which generated this result transmitted reference range: 135 - 361 10*3/?L. The reference range was not used to interpret this result as normal/abnormal. MPV (test code = 31144-2) 8.8 fL 9.4-13.3 L NRBC/100 WBC (test code = 8821797114) See_Comment [Automated Claritics ssage] The system which generated this result transmitted reference range: 0.0 - 10.0 /100 WBCs. The reference range was not used to interpret this result as normal/abnormal. NRBC x10^3 (test code = 6387809486) <0.01 See_Comment [Automated messa ge] The system which generated this result transmitted reference range: 10*3/?L. The reference range was not used to interpret this result as normal/abnormal. GRAN MAT (NEUT) % (test code = 770-8) 71.3 % IMM GRAN % (test code = 5225805713) 0.40 % LYMPH % (test code = 736-9) 19.6 % MONO % (test code = 5905-5) 7.8 % EOS % (test code = 713-8) 0.5 % BASO % (test code = 706-2) 0.4 % GRAN MAT x10^3(ANC) (test code = 7963655340) 5.21 10*3/uL 1.5-10.3 IMM GRAN x10^3 (test code = 4180638514) 0.03 10*3/uL 0-0.06 LYMPH x10^3 (test code = 731-0) 1.43 10*3/uL 0.7-7.4 MONO x10^3 (test code = 742-7) 0.57 10*3/uL 0-0.5 H EOS x10^3 (test code = 711-2) 0.04 10*3/uL 0-0.4 BASO x10^3 (test code = 704-7) 0.03 10*3/uL 0-0.1 Lab Interpretation (test code = 73189-1) Abnormal [facility]<14 WEEKS US [id number] 23:55:04Limited USG for dating due to irregular periods:?transabdominal USG showed intrauterine gestationalsac with yolk sac and no pole Guerrero Whitaker MD?03/20/2019?6:54 PMUnLegent Orthopedic HospitalGALV ONLY - VAGINAL PATHOGENS BY DNA [id number] 17:42:00* Test Item Value Reference Range Interpretation Comme nts Trichomonas vaginalis (test code = 5751580326) Negative Negative Gardnerella vaginalis (test code = 0442245239) Negative Negative Susan species (test code = 1361891195) Negative Negative Lab Interpretation (test cod e = 88404-9) Normal [facility] CampusGC & CHLAMYDIA AMPLIFIED [id number] 17:25:00* Test Item Value Reference Range Interpretation Comme nts Lab Interpretation (test cod e = 68075-2) Normal [facility] CampusADC / L[facility] - DRUG SCREEN [id number] 02:43:00* Test Item Value Reference Range Interpretation Comme nts BENZO U (test code = 2098230294) Negative Negative ELVIS U (test code = 1760360598) Negative Negative AMPHET (test code = 4255901059) Negative Negative THC (test code = 2750189403) Negative Negative METHADONE (test code = 5474018287) Negative Negative Meth U (test code = 9742038382) Negative Negative OPIATES (test code = 9881544899) Negative Negative Cocaine Metabolite (test code = 5474076043) Negative Negative PROPOXY (test code = 4074662074) Negative Negative Tric U (test code = 3072146274) Negative Negative PCP (test code = 8725303378) Negative Negative OXYCOD (test code = 8140642974) Negative Negative ARNULFO (test code = ARNULFO) [...] legal testing). Lab Interpretation (test code = 79347-0) Normal [facility] BETA HCG [id number] 17:07:00* Test Item Value Reference Range Interpretation Comme nts BETA HCG (test code = 2207012534) See_Comment [Automated WomStreeta Saisei] The system which generated this result transmitted reference range: Non- female and male patients: <5 mIU/mL. The reference range was not used to interpret this result as normal/abnormal. ARNULFO (test code = ARNULFO) Gestational Age?Range (mIU/mL)1-10?Weeks?4 7-00502935-78 Weeks?00124-47907058 -22 Weeks?8280-12320974- 40 Weeks?7027-443541650Dzk tin has been reported to cause a negative bias, interpret results relative to patient's use of biotin. [facility] URINALYSIS W/O SPECIFIC [id number] 14:40:00* Test Item Value Reference Range Interpretation [...] 3257) N/A Negative - Negati ve [facility] CampusPOCT [id number] 14:30:00* Test Item Value Reference Range Interpretation Comme nts POCT PREG (test code = 1605) Positive On board controls acceptable with C Line (test code = 3574) Yes POCT PREG LOT # (test code = 3575) POCT PREG TEST DATE ( test code = 3576) [facility] CampusLIPID [id number] 00:00:00* Test Item Value Reference Range Interpretation Comme nts CHOLESTEROL (test code = 2210) 151 MG/DL TRIGLYCERIDES (test code = 2232) 101 MG/DL HDL CHOLESTEROL (test code = 2220) 52 MG/DL CALC LDL CHOL (test code = 2237) 79 MG/DL RISK RATIO LDL/HDL (test cod e = 2238) 1.52 RATIO BASIC METABOLIC [id number] 00:00:00* Test Item Value Reference Range Interpretation Comme nts GLUCOSE (test code = 2217) 96 MG/DL BUN (test code = 2208) 9 MG/DL CREATININE (test code = 2214) 0.45 MG/DL eGFR AMER. (test code = 63604) (NOTE) ML/MIN/1.73 eGFR NON- AMER. (test code = 66375) NO CALC ML/MIN/1.73 SODIUM (test code = 2231) 142 MEQ/L POTASSIUM (test code = 2228) 4.1 MEQ/L CHLORIDE (test code = 2215) 103 MEQ/L CARBON DIOXIDE (test code = 2206) 26 MEQ/L CALCIUM (test code = 2209) 8.6 MG/DL LIPID [id number] 00:00:00* Test Item Value Reference Range Interpretation Comme nts CHOLESTEROL (test code = 2210) 151 MG/DL TRIGLYCERIDES (test code = 2232) 101 MG/DL HDL CHOLESTEROL (test code = 2220) 52 MG/DL CALC LDL CHOL (test code = 2237) 79 MG/DL RISK RATIO LDL/HDL (test cod e = 2238) 1.52 RATIO BASIC METABOLIC [id number] 00:00:00* Test Item Value Reference Range Interpretation Comme nts GLUCOSE (test code = 2217) 96 MG/DL BUN (test code = 2208) 9 MG/DL CREATININE (test code = 2214) 0.45 MG/DL eGFR AMER. (test code = 43471) (NOTE) ML/MIN/1.73 eGFR NON- AMER. (test code = 58689) NO CALC ML/MIN/1.73 SODIUM (test code = 2231) 142 MEQ/L POTASSIUM (test code = 2228) 4.1 MEQ/L CHLORIDE (test code = 2215) 103 MEQ/L CARBON DIOXIDE (test code = 2206) 26 MEQ/L CALCIUM (test code = 2209) 8.6 MG/DL LIPID [id number] 00:00:00* Test Item Value Reference Range Interpretation Comme nts CHOLESTEROL (test code = 2210) 151 MG/DL TRIGLYCERIDES (test code = 2232) 101 MG/DL HDL CHOLESTEROL (test code = 2220) 52 MG/DL CALC LDL CHOL (test code = 2237) 79 MG/DL RISK RATIO LDL/HDL (test cod e = 2238) 1.52 RATIO BASIC METABOLIC [id number] 00:00:00* Test Item Value Reference Range Interpretation Comme nts GLUCOSE (test code = 2217) 96 MG/DL BUN (test code = 2208) 9 MG/DL CREATININE (test code = 2214) 0.45 MG/DL eGFR AMER. (test code = 39830) (NOTE) ML/MIN/1.73 eGFR NON- AMER. (test code = 28939) NO CALC ML/MIN/1.73 SODIUM (test code = 2231) 142 MEQ/L POTASSIUM (test code = 2228) 4.1 MEQ/L CHLORIDE (test code = 2215) 103 MEQ/L CARBON DIOXIDE (test code = 2206) 26 MEQ/L CALCIUM (test code = 2209) 8.6 MG/DL LIPID [id number] 00:00:00* Test Item Value Reference Range Interpretation Comme nts CHOLESTEROL (test code = 2210) 151 MG/DL TRIGLYCERIDES (test code = 2232) 101 MG/DL HDL CHOLESTEROL (test code = 2220) 52 MG/DL CALC LDL CHOL (test code = 2237) 79 MG/DL RISK RATIO LDL/HDL (test cod e = 2238) 1.52 RATIO BASIC METABOLIC [id number] 00:00:00* Test Item Value Reference Range Interpretation Comme nts GLUCOSE (test code = 2217) 96 MG/DL BUN (test code = 2208) 9 MG/DL CREATININE (test code = 2214) 0.45 MG/DL eGFR AMER. (test code = 02128) (NOTE) ML/MIN/1.73 eGFR NON- AMER. (test code = 99000) NO CALC ML/MIN/1.73 SODIUM (test code = 2231) 142 MEQ/L POTASSIUM (test code = 2228) 4.1 MEQ/L CHLORIDE (test code = 2215) 103 MEQ/L CARBON DIOXIDE (test code = 2206) 26 MEQ/L CALCIUM (test code = 2209) 8.6 MG/DL LIPID [id number] 00:00:00* Test Item Value Reference Range Interpretation Comme nts CHOLESTEROL (test code = 2210) 151 MG/DL TRIGLYCERIDES (test code = 2232) 101 MG/DL HDL CHOLESTEROL (test code = 2220) 52 MG/DL CALC LDL CHOL (test code = 2237) 79 MG/DL RISK RATIO LDL/HDL (test cod e = 2238) 1.52 RATIO BASIC METABOLIC [id number] 00:00:00* Test Item Value Reference Range Interpretation Comme nts GLUCOSE (test code = 2217) 96 MG/DL BUN (test code = 2208) 9 MG/DL CREATININE (test code = 2214) 0.45 MG/DL eGFR AMER. (test code = 13204) (NOTE) ML/MIN/1.73 eGFR NON- AMER. (test code = 63700) NO CALC ML/MIN/1.73 SODIUM (test code = 2231) 142 MEQ/L POTASSIUM (test code = 2228) 4.1 MEQ/L CHLORIDE (test code = 2215) 103 MEQ/L CARBON DIOXIDE (test code = 2206) 26 MEQ/L CALCIUM (test code = 2209) 8.6 MG/DL LIPID [id number] 00:00:00* Test Item Value Reference Range Interpretation Comme nts CHOLESTEROL (test code = 2210) 151 MG/DL TRIGLYCERIDES (test code = 2232) 101 MG/DL HDL CHOLESTEROL (test code = 2220) 52 MG/DL CALC LDL CHOL (test code = 2237) 79 MG/DL RISK RATIO LDL/HDL (test cod e = 2238) 1.52 RATIO BASIC METABOLIC [id number] 00:00:00* Test Item Value Reference Range Interpretation Comme nts GLUCOSE (test code = 2217) 96 MG/DL BUN (test code = 2208) 9 MG/DL CREATININE (test code = 2214) 0.45 MG/DL eGFR AMER. (test code = 78722) (NOTE) ML/MIN/1.73 eGFR NON- AMER. (test code = 49911) NO CALC ML/MIN/1.73 SODIUM (test code = 2231) 142 MEQ/L POTASSIUM (test code = 2228) 4.1 MEQ/L CHLORIDE (test code = 2215) 103 MEQ/L CARBON DIOXIDE (test code = 2206) 26 MEQ/L CALCIUM (test code = 2209) 8.6 MG/DL LIPID [id number] 00:00:00* Test Item Value Reference Range Interpretation Comme nts CHOLESTEROL (test code = 2210) 151 MG/DL TRIGLYCERIDES (test code = 2232) 101 MG/DL HDL CHOLESTEROL (test code = 2220) 52 MG/DL CALC LDL CHOL (test code = 2237) 79 MG/DL RISK RATIO LDL/HDL (test cod e = 2238) 1.52 RATIO BASIC METABOLIC [id number] 00:00:00* Test Item Value Reference Range Interpretation Comme nts GLUCOSE (test code = 2217) 96 MG/DL BUN (test code = 2208) 9 MG/DL CREATININE (test code = 2214) 0.45 MG/DL eGFR AMER. (test code = 22376) (NOTE) ML/MIN/1.73 eGFR NON- AMER. (test code = 71758) NO CALC ML/MIN/1.73 SODIUM (test code = 2231) 142 MEQ/L POTASSIUM (test code = 2228) 4.1 MEQ/L CHLORIDE (test code = 2215) 103 MEQ/L CARBON DIOXIDE (test code = 2206) 26 MEQ/L CALCIUM (test code = 2209) 8.6 MG/DL LIPID [id number] 00:00:00* Test Item Value Reference Range Interpretation Comme nts CHOLESTEROL (test code = 2210) 151 MG/DL TRIGLYCERIDES (test code = 2232) 101 MG/DL HDL CHOLESTEROL (test code = 2220) 52 MG/DL CALC LDL CHOL (test code = 2237) 79 MG/DL RISK RATIO LDL/HDL (test cod e = 2238) 1.52 RATIO BASIC METABOLIC [id number] 00:00:00* Test Item Value Reference Range Interpretation Comme nts GLUCOSE (test code = 2217) 96 MG/DL BUN (test code = 2208) 9 MG/DL CREATININE (test code = 2214) 0.45 MG/DL eGFR AMER. (test code = 99766) (NOTE) ML/MIN/1.73 eGFR NON- AMER. (test code = 62353) NO CALC ML/MIN/1.73 SODIUM (test code = 2231) 142 MEQ/L POTASSIUM (test code = 2228) 4.1 MEQ/L CHLORIDE (test code = 2215) 103 MEQ/L CARBON DIOXIDE (test code = 2206) 26 MEQ/L CALCIUM (test code = 2209) 8.6 MG/DL Consult Notes Date/Time Note Provider Source 2024-07-23 17:40:08 Associated Order(s): CONSULT CRADLE SLIDE MAKER-ADULT Reason for consult - please give recommendation or opinion on: depression, please provide with available resources SW received consult regarding patient having depression. However, patient scored a 6 on PPD assessment. No SW consult initiated. Cristina Cee LMSW [facility] Unemployment Benefits Claims Taker [phone] [email or web address] Available Fri - Fri L CLEANER Cristina Cee LMSW [facility] - Health History and Physical Notes Date/Time Note Provider Source 2024-07-21 21:07:00 TRIAGE/L&D HISTORY & PHYSICAL IDENTIFYING DATA Altagracia Vargas is 19 year old, /White, 39w0d, female with JONAS 07/28/2024, by Last Menstrual Period. : 2003 Primary Care Physician: PATIENT DOES NOT HAVE A PCP CHIEF COMPLAINT sIOL HISTORY OF PRESENT ILLNESS Altagracia Vargas is a 19 year old at 39w0d [...] all extremities, no facial droop : SVE- 3/3 REVIEW OF LABORATORY, PATHOLOGY, AND RADIOLOGY DATA [...] AM GTT Lab Results Component Value Date/Time [id number] 89 (L) 06/01/2024 02:14 PM CBC Lab [...] care 06/01/2024 Anatomy ultrasound: no openings in [place] and offered other clinics, patient declined. Outside [...] . Negative screening. ASSESSMENT AND PLAN Altagracia Vargas is a 19 year old at 39w0d [...] PP control plan: no current plans - [facility] Fetus - Presentation on admission: cephalic - posterior placenta - EFW: 3484 g, 54%tile - FHT reactive and reassuring - no anatomy scan on file D/w Dr. Jamarcus Hwang MD PhD L CLEANER Associated attestation - Shawn Maciel MD - 07/22/2024 6:18 AM WHEEL CLEANER Attending addendum: I was L&D faculty on DOS and agree with H&P below. I was immediately available. Shawn Maciel MD [facility] - Health Procedure Notes Date/Time Note Provider Source 2024-07-22 10:52:44 Associated Order(s): Central Neuraxial Block Central Neuraxial Block Date/Time: 07/22/2024 10:04 AM Performed by: Logan Garcia MD Authorized by: Miguel Carreno MD Patient Location: Other Reason for Block: Labor analgesia, OB request, Patient request, Post-op pain management and Surgical anesthesia Staff: Anesthesiologist: Miguel Carreno MD Resident/[employer]DI[employer] POLICY SPECIALIST: Logan Garcia MD Performed by: resident/[employer] POLICY SPECIALIST Preanesthetic Checklist: patient identified, IV checked, risks [...] MICHELLE saline Guidance with: landmark technique} Epidural/Spinal [place] and/or Catheter: Epidural/Spinal Kit: Shani Needle Type: [...] expectations; PCEA explained and fall precautions given. [facility] ANESTHESIOLOGY [facility] 2024-07-22 06:10:58 Altagracia Vargas is a 19 year old female 39w1d [...] +2 Hien Flores MD 07/22/2024 6:11 AM [facility] CL[facility]IC OBSTETRICS & GYNECOLOGY [facility] Notes Date/Time Note Provider Source 2024-07-24 10:57:13 Problem: Falls, Risk of Goal: Absence of falls Outcome: Resolved Problem: Pain Goal: Control of pain at or below patient's documented comfort goal Outcome: Resolved Goal: Reduction in pain sensation Outcome: Resolved Problem: Infection Risk Goal: Absence of infection Outcome: Resolved Problem: Discharge Planning - Goal: Adequate for discharge Outcome: Resolved Goal: Mood stable Outcome: Resolved [facility] 2024-07-24 05:15:27 Problem: Falls, Risk of Goal: Absence of falls Outcome: Progressing as expected Problem: Pain Goal: Control of pain at or below patient's documented comfort goal Outcome: Progressing as expected Goal: Reduction in pain sensation Outcome: Progressing as expected Problem: Infection Risk Goal: Absence of infection Outcome: Progressing as expected Problem: Discharge Planning - Goal: Adequate for discharge Outcome: Progressing as expected Goal: Mood stable Outcome: Progressing as expected [facility] Yajaira Sanchez RN [facility] 2024-07-23 17:44:27 Problem: Falls, Risk of Goal: Absence of falls Outcome: Progressing as expected Problem: Pain Goal: Control of pain at or below patient's documented comfort goal Outcome: Progressing as expected Goal: Reduction in pain sensation Outcome: Progressing as expected Problem: Infection Risk Goal: Absence of infection Outcome: Progressing as expected Problem: Discharge Planning - Goal: Adequate for discharge Outcome: Progressing as expected Goal: Mood stable Outcome: Progressing as expected [facility] 2024-07-23 10:35:00 This note was copied from a baby's chart. Assessment (most recent) Assessment - 07/23/24 1035 General Information Visit Initial Percent of weight loss- 0 Mom's age (years) 19 years Trading Assistant Used N/A Gestational age 39 weeks 2 Parity 2 Living Children 2 Feeding plan Formula Attended class No Delivery method Literature Resources Education Risks of mastitis and signs, seek medical attention immediately;Engorgement signs and treatment;How to suppress milk supply Handouts given [place] OTHER $ SERVICES Initial Mom is wanting to formula feed only. Information on drying up her milk provided Tiffanie Lloyd RN,BSN,IBCLC Pager - [phone] L CLEANER Tiffanie Lloyd RN [facility] 2024-07-23 03:43:05 Problem: Intrapartum process (including labor pain) Goal: Absence of or reduction of complications of labor Outcome: Resolved Goal: Able to cope with pain Outcome: Resolved Goal: Adequate to move to next level of care Outcome: Resolved Goal: Reduction in pain sensation Outcome: Resolved Problem: Falls, Risk of Goal: Absence of falls Outcome: Progressing as expected Problem: Pain Goal: Control of pain at or below patient's documented comfort goal Outcome: Progressing as expected Goal: Reduction in pain sensation Outcome: Progressing as expected Problem: Infection Risk Goal: Absence of infection Outcome: Progressing as expected Problem: Discharge Planning - Goal: Adequate for discharge Outcome: Progressing as expected Goal: Mood stable Outcome: Progressing as expected FER Herrera RN [facility] 2024-07-22 22:17:51 DELIVERY BY SPONTANEOUS VAGINAL DELIVERY Delivery Date: 07/22/2024 Delivery Time: 9:53 PM Review the Delivery Report for details. The patient was admitted to the Labor & Delivery unit for IOL at 39w1d due to term gestation. Delivery Physician: Tray Ricketts MD OB Faculty: Shantell Morales MD Quality Process Auditor Resident: Hien Flores MD Intrapartum Anesthesia/Analgesia: Epidural Mode of Delivery: Delivery of bryant fetus with cephalic presentation Fetus Spontaneous vaginal delivery of head with cephalic position, occipital anterior. As the head crowned and distended the perineum, no episiotomy was performed. A blue towel was used to protect the perineum as the head crowned and delivered. The other hand was used to exert pressure on the occiput to control the delivery of the head. The perineum was pushed with a towel-draped hand as the head and mouth was delivered over the perineum. The head was allowed to rotate externally to achieve natural body posture. Examination of neck revealed nuchal cord, which was Loose umbilical cord - reduced. The shoulder was unable to be delivered by gentle downward traction applied to head. Shoulder dystocia was recognized. Mom was instructed not to push, and mom was put into McRobert's position. Left anterior should was palpated and found to be impacted under the pubic bone. Suprapubic pressure was applied by nursing from maternal right to left. Anterior shoulder was then delivered spontaneously. This was followed by upward traction with delivery of posterior shoulder and body. A viable male was delivered. The umbilical cord was clamped, cut and the was handed off the field to the circulating nurse. The pediatricians were at the stand to evaluate the new born. Placenta Placenta was delivered spontaneously while the abdominal hand lifted the uterus cephalad and other hand keeping the umbilical cord slightly taut. Laceration Laceration Repair: 2nd Degree - Second degree laceration was repaired using 2-[address]-1. Suture was used with continuous locking fashion to close the vaginal mucosa and submucosa. The hymenal ring is reapproximated and tied with the same suture. The fascia and muscle of perineum was reapproximated with continuous suturing from forchett toward inferior edge. Continuous subcutaneous stitch was used to reapproximate the perineal skin with the same suture. . Fourth Stage Fourth stage of labor was managed by uterine massage with abdominal hand and infusion 18 units of pitocin mixed with intravenous fluid. EBL: 200 ml APGARs: 8, 9 Weight: 3880 g Complications: None Tray Ricketts MD 07/22/24 10:17 PM L CLEANER Associated attestation - Shantell Morales MD - 07/23/2024 6:23 AM WHEEL CLEANER I was the staff night worker online producer and was actively involved in the management and present for the solorio portion of the delivery on 07/22/[address]. [address] Ricketts's delivery note for additional details OBSTETRICS & GYNECOLOGY [facility] 2024-07-22 21:36:40 Intrapartum Progress Note 07/22/2024 9:36 PM Subjective: Patient has no complaints Objective: Vitals last 24 hours: Temp: [36.1 ?C (97 ?F)-37.1 ?C (98.7 ?F)] 36.5 ?C (97.7 ?F) Pulse: [56-107] 88 Resp: [17-18] 17 BP: (41-128)/(25-102) 121/51 Intake/Output : No intake/output data recorded. I/O last 3 completed shifts: In: 1332.5 [I.V.:1236.4] Out: 400 [Urine:400] Assessment Active movement: Yes Mode: EFM Baseline FHR (bpm): 150 Variability: Moderate Pattern: Variable decelerations Decel Frequency: Intermittent FHR Category: II Uterine Activity: Mode: [place] Contractions (number / 10 minute): 3 Contraction duration (seconds): 70-90 Resting tone: Soft, Palpation Membrane Status Membrane status: Artificial Rupture date: 07/22/24 Rupture time: 1400 Amniotic fluid color: Clear Cervical Exam % / 0 Assessment/Plan: Altagracia Vargas is a 19 year old at 39w1d OB Assessment: IOL, GBS OB Plan: s/p FB, Pit@0015, Ancef Additional Comments/Detail: Internals Ripening Agent: Oxytocin Intrapartum Plan: Continue active labor management, Expect delivery soon Tray Ricketts MD [facility] 2024-07-22 20:19:06 Intrapartum Progress Note 07/22/2024 8:19 PM Subjective: Patient has no complaints Objective: Vitals last 24 hours: Temp: [36.1 ?C (97 ?F)-37.1 ?C (98.7 ?F)] 36.1 ?C (97 ?F) Pulse: [56-107] 65 Resp: [17-18] 17 BP: (41-128)/(25-102) (P) 92/65 Intake/Output : No intake/output data recorded. I/O last 3 completed shifts: In: 1332.5 [I.V.:1236.4] Out: 400 [Urine:400] Assessment Active movement: Yes Mode: EFM FHR Category: I Uterine Activity: Mode: [place] Contractions (number / 10 minute): 2 Contraction duration (seconds): 120-180 Resting tone: Soft, Palpation Membrane Status Membrane status: Artificial Rupture date: 07/22/24 Rupture time: 1400 Amniotic fluid color: Clear Cervical Exam % / -1 Assessment/Plan: Altagracia Vargas is a 19 year old at 39w1d OB Assessment: IOL, GBS OB Plan: s/p FB, Pit@0015, Ancef Additional Comments/Detail: Pain control Intrapartum Plan: Consult Anesthesiology service Tray Ricketts MD [facility] 2024-07-22 09:43:53 Name/ MRN / Age / Gender: Altagracia Vargas, [id number] 19 year old female BMI: Estimated body mass index is 45.78 kg/m? as calculated from the following: Height as of this encounter: 1.651 m (5' 5"). Weight as of this encounter: 124.8 kg (275 lb 1.6 oz). Allergies: Aspirin and Penicillin Last Vitals: BP Readings from Last 1 Encounters: 07/22/24 108/63 Pulse Readings from Last 1 Encounters: 07/22/24 87 SpO2 Readings from Last 1 Encounters: 07/22/24 96% Date of Surgery: 07/22/2024 Surgeon: * No surgeons listed * Procedure: CENTRAL NEURAXIAL BLOCK OR Location: [place] ANESTHESIA OUT OF OR - OR LOCATION Anesthesia Preop Eval (physical exam) Anesthesia Preop: Chart Review and [id number] [facility] Communication: Altagracia Vargas is a 19 year old female requesting epidural for labor pain. NPO Status Verified Anesthesia History Anesthesia History Negative Previous Anesthetics/Airways Cardiovascular Negative Cardiac ROS Comments: BP Readings from Last 4 Encounters: 07/22/24 : 108/63 07/20/24 : 127/86 07/09/24 : 134/88 07/04/24 : 112/62 Pulmonary Comments: Tobacco Use: Medium Risk (07/22/2024) Patient History Smoking Tobacco Use: Never Smokeless Tobacco Use: Former Passive Exposure: Current (+) Vaping use Neuro/Musculoskeletal (+) Psychiatric history and depression (+) Anxiety GI/Hepatic Negative GI/Hepatic ROS Hematology Negative Hematology ROS Comments: HGB (g/dL) Date Value 07/21/2024 10.7 (L) 07/21/24 2338 PLT 470* Renal Negative Renal ROS Comments: No results found for: "CREAT" No results found for: "K" Skin Negative Skin ROS (+) Current IV access Endo/Other Negative Endo/Other ROS Comments: No results found for: "ABEYAIO8L" Other (+) Vaping use TIMING ADJUSTER Comments: @ 39w1d Altagracia Vargas is a 19 year old at 39w0d by d/u(20) who presents for sIOL. IOL - (-) Vaginal Bleeding, (-) Leakage of Fluid, (-) Contractions, (+) Movement - SVE: % / -3 Plan: - Admit for [...] PP control plan: [facility] - Presentation on admission: cephalic - posterior placenta - EFW: 3484 g, 54%tile - FHT reactive and reassuring - no anatomy scan on file Pediatric Preoperative Medication Instructions Continue taking all prescribed medications except: TERI inhibitors, ARBs, diuretics, all oral diabetes medications Anticoagulant Therapy: Defer to surgeons Insulin: Take 1/2 dose the night prior to surgery. Hold on DOS. Phentermine: Alert [facility] anesthesiologist SGLT2 Inhibitors: "gliflozins" to be held for 3 days prior to elective surgeries GLP1 Agonosit: stop 7 days prior to surgery MAC Cases: Continue taking TERI inhibitors and ARBs ASA Classification ASA: 2 ASA Comments: Current everyday vape use MDD CLAUDIA Labs: Chemistry - CBC 07/21/2024 - - - - 10.69 10.7 (L) 470 (H) - - - 33.5 (L) eGFR: - Date: - ANC: 7.13 (H) Date: 07/21/2024 LFTs - Coags AST: - AP: - Prot: - Ca: - PT: - Date: - ALT: - T Jovanny: - Alb: - PTT: - Date: - PO4: - Date: - INR: - Date: - Cardiac Endocrine & other pBNP: - Date: - A1C: - Date: - Trop I: - Date: - POCT A1C: - Date: - CK: - Date: - TSH: - Date: - CKMB: - Date: - FT4: - Date: - LDL: - Date: - Lact: - Date: - Procal: - Date: - Respiratory -|-|-|-|- D-dimer: - ABG Date: - Date: - Miscellaneous Type and Screen: A POSITIVE Antibody: Negative Date: 07/21/2024 POCT : Positive Date: 06/01/2024 Current Medications: No outpatient medications have been marked as taking for the 07/21/24 encounter (Hospital Encounter). Previous Surgeries: Past Surgical History: Procedure Laterality Date ADENOIDECTOMY 2008 TONSILLECTOMY 2008 Anesthesia Physical Exam General no apparent distress and alert and oriented x 3 Neuro/Psych neurological Nonfocal Dental no notable dental hx Abdominal GI exam normal (+) abdomen soft and gravid Airway Mallampati score:II TM distance:> 5 cm Neck ROM: full Mouth opening:normal Extremity Normal extremity Pulmonary pulmonary exam normal and bilateral clear to auscultation Other Cardiovascular cardiovascular exam normalRhythm:Regular Rate: Normal Anesthesia Plan ASA Status: 2 Plan discussed during pre-op evaluation: General, Epidural, Spinal and CSE Anesthetic plan on DOS: Epidural Anesthesia plan discussed with: patient or sales representative advertising Post-Operative Analgesia: routine analgesia & antiemetics Recovery Plan: PACU Additional comments: HEALTH CLINIC AN-ANESTHESIOLOGY ANESTHESIOLOGIST [facility] 2024-07-22 08:11:21 Problem: Intrapartum process (including labor pain) Goal: Absence of or reduction of complications of labor Outcome: Progressing as expected Goal: Able to cope with pain Outcome: Progressing as expected Goal: Adequate to move to next level of care Outcome: Progressing as expected Goal: Reduction in pain sensation Outcome: Progressing as expected Problem: Falls, Risk of Goal: Absence of falls Outcome: Progressing as expected Problem: Pain Goal: Control of pain at or below patient's documented comfort goal Outcome: Progressing as expected Goal: Reduction in pain sensation Outcome: Progressing as expected Problem: Infection Risk Goal: Absence of infection Outcome: Progressing as expected L CLEANER Rachel Rai RN [facility] 2024-07-22 06:19:03 Problem: Intrapartum process (including labor pain) Goal: Absence of or reduction of complications of labor Outcome: Progressing as expected Goal: Able to cope with pain Outcome: Progressing as expected Goal: Adequate to move to next level of care Outcome: Progressing as expected Goal: Reduction in pain sensation Outcome: Progressing as expected Problem: Falls, Risk of Goal: Absence of falls Outcome: Progressing as expected Problem: Pain Goal: Control of pain at or below patient's documented comfort goal Outcome: Progressing as expected Goal: Reduction in pain sensation Outcome: Progressing as expected Problem: Infection Risk Goal: Absence of infection Outcome: Progressing as expected [facility] 2024-07-14 13:40:04 Noted. FER Crocker LVN [facility] 2024-07-14 13:36:59 Appointment scheduled for Friday07/20/24 @ 3:[address] [facility] 2024-07-14 11:41:24 Patient missed appointment for 07/13/24 for care has induction scheduled for 07/21/24. L CLEANER Lukasz Melton [facility] 2024-07-04 18:40:05 Patient reports abdominal pain and chest pain for one week. She is 36 weeks . [facility] JONAS 07/26. A0. L CLEANER Liu Muñiz RN [facility] 2024-06-28 11:12:52 Report given to Maki Byrne RN. [facility] 2024-06-28 11:09:02 Patient states: "I'm having back pain that started yesterday. It's constantly wet down there " Reports being 35 weeks . OB: [facility] Reports discharge, denies bleeding. G 2 P 1 A 0 Pmhx: none FER El RN [facility] 2024-06-19 06:23:33 , 34w3d [facility] clinic pt arrived to the unit at [...] documentation See my H&P Mariela Chen MD [facility] 2024-06-19 04:07:09 CC: Pelvic pain and back pain began yesterday, and recently gotten worst. Pt is 34 weeks gestation[address] Pt sees Dr. Milligan. Pt took Tylenol at 10PM yesterday. Awake, alert, oriented, resp reg unlabored, skin intact, color appropriate for race, moves all ext without difficulty, amb Report given to KATELYN Lucas Faina Flores RN [facility] 2024-06-04 00:56:26 CC: Midline abdominal pain and pelvic cramping at 32 weeks. Pain began yesterday. Pt is currently taking ABX for Climidia. Sees DR. Milligan G2 L1 Awake, alert, oriented, resp reg unlabored, skin intact, color appropriate for race, moves all ext without difficulty, amb Report given to KATELYN Andrews Faina Flores RN [facility] 2024-06-03 13:21:23 Notified the patient of her positive STI results chlamydia. Notified the patient her medication has been sent to her pharmacy on file. Educated patient she should complete the entire course, advised patient to practice safe sex practices and to remain abstinent for at least 1-2 weeks post treatment. Patient desires to have partner treated. Name of partner: Karrie Vaughan :03/23/1996 [place] Phone number:[phone] Offered std pamphlet for partner education. Patient declined std pamphlet to be mailed to partner. Advised patient on HIV testing if she has not recently been tested. Advised DENISE appointment in 3 months. Pt verbalized understanding. Jacquelyn Appiah RN 06/03/24 1:23 PM Jacquelyn Appiah RN [facility] 2024-06-03 12:06:48 Pt tested positive for chlamydia. Prescription for azithromycin routed to her pharmacy on file/ordered for clinic pickup/administration. Please notify patient of results. Her partner needs to be notified and should be encouraged to follow up with his PCP or may come to [facility] for treatment. If the partner is unwilling [...] (if will need DENISE in 3-[address] weeks). [facility] 2024-06-02 08:23:42 Patient diagnosed with anemia [...] RN 06/02/24 8:24 AM Jacquelyn Appiah RN [facility] 2024-06-02 07:30:36 Please call patient and let her know she has anemia and I erx prescription to pharmacy. She is still medicaid pending so can take OTC if needed. [facility] 2024-02-07 23:38:17 PT ELOPE PRIOR TO DISPO. LAST SEEN IN STABLE CONDITION, AOx4, NO ATAXIA NOTED. PT DID NOT SIGN AMA PAPERS. PER REGISTRATION PT STATES "IM NOT WAITING HERE ALL NIGHT." PT THEN THROWS IDENTIFICATION BAND INTO TRASH AND ELOPES FROM DEPARTMENT. Catalina Ervin RN [facility] 2024-02-07 22:20:12 Pt arrives ambulatory to ED c/o tooth pain that began yesterday. She reports she can't eat or drink anything and since she is 15 weeks she is not able to take anything that helps the pain. T [facility]
[2024-09-28 20:27] LABS: SARS-CoV-2 Antigen CONTROL BLUE LINE VIS/BG OK; SARS-CoV-2 Antigen Rapid Res Negative (Negative)
--- NOTE | 2024-09-28 20:32 | ER ---
Nurse's Notes [facility] Name: Altagracia Yu Age: 19 yrs Sex: Female : 2005 Arrival Date: 09/28/2024 Time: 19:37 Bed IW2 Private MD: Diagnosis: Influenza due to identified novel influenza A virus Presentation: 09/28 19:51 Chief complaint: Patient states: Chills, bodyaches, fever, sore throat onset friday. cm10 Coronavirus screen: Client denies travel out of the [place] in the last 14 days. Ebola Screen: Patient denies travel to an Ebola-affected area in the 21 days before illness onset. Initial Sepsis Screen: Does the patient meet any 2 criteria? HR > 90 bpm. Does the patient have a suspected source of infection? No. Patient's initial sepsis screen is negative. Risk Assessment: Do you want to hurt yourself or someone else? Patient reports no desire to harm self or others. Onset of symptoms was September 27, 2024. 19:51 Method Of Arrival: Ambulatory cm10 19:51 Acuity: KARMEN 4 cm10 Triage Assessment: 19:52 General: Appears in no apparent distress. uncomfortable, Behavior is calm, cooperative. cm10 EENT: Throat is reddened Reports pain when swallowing. Neuro: No deficits noted. Level of Consciousness is awake, alert, obeys commands, Oriented to person, place, time, situation, Appropriate for age. Respiratory: No deficits noted. Airway is patent Respiratory effort is even, unlabored, Respiratory pattern is regular, symmetrical. 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 - Infectious Disease History:: Denies. - Social history:: Smoking status: Reported history of juuling and/or vaping. Screenin:44 [facility] ED Fall Risk Assessment (Adult) History of falling in the last 3 months, cm10 including since admission No falls in past 3 months (0 pts) Confusion or Disorientation No (0 pts) Intoxicated or Sedated No (0 pts) Impaired Gait No (0 pts) Mobility Assist Device Used No (0 pt) Altered Elimination No (0 pt) Score/Fall Risk Level 0 - 2 = Low Risk Oriented to surroundings, Maintained a safe environment, Hourly rounding (assess needs \T\ fall precautionary measures) done. Abuse screen: Denies threats or abuse. Denies injuries from another. Nutritional screening: No deficits noted. Tuberculosis screening: No symptoms or risk factors identified. Vital Signs: 19:51 BP 114 / 70; Pulse 105; Resp 18; Temp 99.6; Pulse Ox 98% on R/A; Weight 104.33 kg; cm10 Height 5 ft. 2 in. ; Pain 2/10; 19:51 Body Mass Index 42.07 (104.33 kg, 157.48 cm) cm10 19:51 Pain Scale: Adult cm10 ED Course: 19:38 Patient arrived in ED. im 19:40 [facility] Saravia FNP-C [facility] kb 19:40 Reid Oneil MD is Attending Physician. kb 19:52 Triage completed. cm10 19:52 Arm band placed on right wrist. Patient placed in waiting room. cm10 19:55 Strep Sent. cm10 19:55 SARS-COV-2 Antigen Rapid Sent. cm10 19:55 Flu Sent. cm10 19:55 COVID swab sent to lab. Flu and/or RSV swab sent to lab. Strep swab sent to lab. cm10 20:44 Patient has correct armband on for positive identification. Provided Education on: cm10 Follow-up instructions. 20:44 No provider procedures requiring assistance completed. Patient did not have IV access cm10 during this emergency room visit. Administered Medications: No medications were administered Medication: 20:44 VIS not applicable for this client. cm10 Outcome: 20:30 Discharge ordered by . kb 20:44 Discharged to home ambulatory, cm10 20:44 Condition: good 20:44 Discharge instructions given to patient, Instructed on discharge instructions, follow up and referral plans. medication usage, Demonstrated understanding of instructions, follow-up care, medications, Prescriptions given X 1, 20:51 Patient left the ED. cm10 Signatures: Sveta Saravia FNP-C FNP-Ckb Mendoza, Itzel im Martinez, Clarissa, RN RN cm10
--- NOTE | 2024-09-28 20:32 | EDPHYS ---
Physician Documentation [facility] Name: Altagracia Yu Age: 19 yrs Sex: Female : 2005 Arrival Date: 09/28/2024 Time: 19:37 Bed IW2 Private MD: ED Physician Reid Oneil HPI: 09/28 19:50 This 19 yrs old Female presents to ER via Unassigned with complaints of Flu Symptoms. kb 19:50 Pt is a 19 year old female who presents for headache, sore throat, bodyaches, fever, kb chills, cough and congestion that started 2 days ago. States boyfriend tested positive for flu. 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 - Infectious Disease History:: Denies. - Social history:: Smoking status: Reported history of juuling and/or vaping. ROS: 20:30 Constitutional: As per HPI kb Exam: 20:30 Constitutional: This is a well developed, well nourished patient who is awake, alert, kb and in no acute distress. Head/Face: Normocephalic, atraumatic. ENT: Moist Mucous membranes Cardiovascular: Regular rate Respiratory: Respirations even and unlabored. No increased work of breathing. Talking in full sentences Skin: Warm, dry with normal turgor. Normal color. MS/ Extremity: Pulses equal, no cyanosis. Neurovascular intact. Full, normal range of motion. Neuro: Awake and alert, GCS 15, oriented to person, place, time, and situation. Vital Signs: 19:51 BP 114 / 70; Pulse 105; Resp 18; Temp 99.6; Pulse Ox 98% on R/A; Weight 104.33 kg; cm10 Height 5 ft. 2 in. ; Pain 2/10; 19:51 Body Mass Index 42.07 (104.33 kg, 157.48 cm) cm10 19:51 Pain Scale: Adult cm10 MDM: 19:41 Medical Screening Exam initiated kb 20:30 Differential diagnosis: flu, covid, uri, strep. Data reviewed: vital signs, nurses kb notes. I considered the following discharge prescriptions or medication management in the emergency department I discussed and recommended Over The Counter medications, Antibiotics: At this time antibiotics are not recommended. Counseling: I had a detailed discussion with the patient and/or guardian regarding the historical points, exam findings, and any diagnostic results supporting the discharge/admit diagnosis, lab results, the need for outpatient follow up, a family practitioner, to return to the emergency department if symptoms worsen or persist or if there are any questions or concerns that arise at home. 09/28 19:51 Order name: Flu; Complete Time: 20:28 kb 09/28 19:51 Order name: SARS-COV-2 Antigen Rapid; Complete Time: 20:28 kb 09/28 19:51 Order name: Strep kb Administered Medications: No medications were administered Disposition Summary: 09/28/24 20:30 Discharge Ordered Notes: Location: Home kb Condition: Stable kb Diagnosis - Influenza due to identified novel influenza A virus kb Followup: kb - With: Emergency Department - When: As needed - Reason: Worsening of condition Followup: kb - With: Private Physician - When: 2 - 3 days - Reason: Recheck today's complaints, Continuance of care, Re-evaluation by your physician Discharge Instructions: - Discharge Summary Sheet kb - Influenza, Adult, [id number] kb Forms: - Medication Reconciliation Form kb - Antibiotic Education kb - Prescription Opioid Use kb - Patient Portal Instructions kb - Leadership Thank You Letter kb Prescriptions: - Tamiflu 75 mg Oral capsule - take 1 tablet ORAL route every 12 hours for 5 days; 10 tablet; Refills: 0, kb Product Selection Permitted Signatures: Dispatcher [employer] EDSD Sveta Saravia, REGAN-C Nydia Rand, RN RN cm10 Corrections: (The following items were deleted from the chart) 19:52 19:52 Influenza Screen (A \T\ B)+BA.LAB.BRZ ordered. EDSD EDMS 19:52 19:52 SARS-COV-2 Antigen Rapid+I.LAB.BRZ ordered. EDSD EDMS 19:52 19:52 Group A Streptococcus Rapid Sc+BA.LAB.BRZ ordered. EDSD EDMS 20:29 19:50 headache, sore throat, bodyaches, fever, chills, cough and congestion that kb started 2 days ago. . kb
[2024-09-29 07:09] VITALS: BP 114/70; TEMP 99.6; O2SAT 98
== END 2024-09-28 20:51 | disposition home or self-care (01) ==
LOC: ER 19:37
DX: J10.1 Influenza due to other identified influenza virus with other respiratory manifestations (principal); Z11.52 Encounter for screening for COVID-19
CPT/HCPCS: 36415; 87070; 87081; 87804; 87811; 99283